=== PATIENT | female | born 1965 | race Caucasian/White ===

== ENCOUNTER 2017-12-29 00:55 | Emergency (ER) | payer BC, SELFPAY ==
[2017-12-29 00:56] VITALS: BP 145/84; PULSE 78; RESP 16; TEMP 36.4; O2SAT 100; BMI 24.0
[2017-12-29 01:00] VITALS: BP 134/84
--- NOTE | 2017-12-29 01:52 | ED.VISSUMM ---
- ER Visit Summary Date of Service: 12/29/17 Chief Complaint: Neck pain History of Present Illness: The patient is a 52 F right-sided neck pain for past several weeks. Follows with chiropractor, has been adjusted. Temporary relief. Pain worse while trying to sleep. Pain in the right side radiates up her head. There has been no falls or injuries. There is pain states her right arm down to her right wrist. There is no weakness or paresthesias. No previous similar symptoms in the past. Using Tylenol and ibuprofen, however last dose was yesterday morning. No history of gastric ulcers or kidney injury. Physical Examination: General: Alert and oriented ?3, no acute distress HEENT: Normocephalic, atraumatic. Moist mucosa membranes Neck: supple, no midline tenderness, right upper paracervical tenderness. There is tenderness along the right SCM. Negative Spurling's test bilaterally. Cardiovascular: Regular rate and rhythm, no murmurs Respiratory: Normal breath sounds, symmetric, no distress Abdomen: Soft, nontender, nondistended Extremities: Nontender, no edema, pulses intact ?4 Neuro: no focal neurological deficits. Equal strength upper extremities bilaterally. Test Results: Cervical x-ray: Degenerative change at C4-C5 and C5-C6 Emergency Department Course and Treatment: Patient history concerns for cervical radiculopathy at C6 on the right. She has no weakness. Treated with Motrin in the ED. X-ray obtained noted general findings in her area of pain. Discussed findings with patient with radiculopathy. She does have ibuprofen for which she continue. Discharged with 1 Valium along with a prescription to use to help with spasms. Discussed additional cervical strain with her anterior neck pain. She will follow-up with her PCP for reevaluation. Treatment Plan: [] Disposition: Discharge Impression: 1. Right C6 cervical radiculopathy 2. Cervical strain This note was generated with Clear[employer] dictation software. It may contain incorrect words, spelling, and punctuation that were not noted in review of the chart prior to signing Bad present towards cardioversion 5 yearsexam saw her she flipped on Cardizem IV bolus and having more more chest discomfort she ED Disposition - Plan for ED Patient: Disposition: Home or Assisted Living Chief Complaint: Other, Pain/Inj Diagnosis: Cervical radiculopathy at C6, Cervical strain Instructions: ED Sprain Strain Neck, ED Cervical Radiculopathy Prescriptions: Diazepam [Valium] 5 mg PO Q8 PRN #10 tablet PRN Reason: Muscle Spasm Referrals: Aldo Leroy MD [Primary Care Provider] - Additional Instructions: C6 right cervical radiculopathy. Continue ibuprofen 600 mg every 6 hours. Use the Valium as needed. Follow-up with your doctor for reevaluation further treatment.
[2017-12-29] MEDS: Ibuprofen 600 MG Tablet PO (02:03)
[2017-12-29] MEDS: diazePAM 5 MG Tablet PO (02:04)
[2017-12-29 03:33] VITALS: BP 135/80; PULSE 76; RESP 16; O2SAT 98
== END 2017-12-29 03:42 | disposition home or self-care (01) ==
PROVIDERS: Emergency Provider Emergency Medicine; Family Provider Family Medicine; PCP Family Medicine
DX: M54.12 Radiculopathy, cervical region (principal); S16.1XXA Strain of muscle, fascia and tendon at neck level, initial encounter; X58.XXXA Exposure to other specified factors, initial encounter; Y93.9 Activity, unspecified; Y92.9 Unspecified place or not applicable; Y99.9 Unspecified external cause status; Z72.0 Tobacco use; G40.909 Epilepsy, unspecified, not intractable, without status epilepticus
CPT/HCPCS: 72040; 99282

== ENCOUNTER → 2018-03-20 07:17 | Outpatient (CLI) | payer BC, SELFPAY ==
[2018-03-20 10:00] LABS: Hemoglobin 14.1 g/dl (12.0-15.0); Mean Corp Hgb Conc 33.6 g/gl (32-36); Mean Corpuscular Hgb 34.3 pg (27.0-32.0); Mean Corpuscular Volume 102.2 fL (81-99); Mean Platelet Vol. 10.3 fl (6.2-12.0); Platelet Count 282 K/mm3 (150-450); RBC Distribution Width SD 48.5 fl (35.1-43.9); Red Blood Count 4.11 M/mm3 (4.2-5.4); Scan Indicated on CBC? Y/N NO
[2018-03-20 10:25] LABS: Carbamazepine (Tegretol) 7.4 ug/mL (4.0-12.0)
[2018-03-20 10:27] LABS: ALB/GLOB Ratio 1.1 RATIO (0.9-2.4); AST(SGOT) 22 U/L (15-37); Alanine Aminotransfer ALT/SGPT 26 U/L (13-56); Albumin, Serum 3.7 g/dL (3.2-5.0); Alkaline Phosphatase 85 U/L (45-117); Anion Gap 8 (5-15); BUN 8 mg/dL (7-18); BUN/Creat Ratio 15.1 RATIO (10-20); Calcium,Total 8.3 mg/dL (8.5-10.1); Chloride 108 mmol/L (98-107); Cholesterol 188 mg/dL (200); Creatinine, Serum 0.53 mg/dL (0.55-1.02); EST Glomerular Filtration Rate 128 mL/min (>60); Est Glom Filt Rate - Afr Amer 155 mL/min (>60); Globulin 3.5 g/dL (2.2-4.2); Glucose 93 mg/dL (74-106); High Density Lipoprotein 62 mg/dL; Potassium 3.8 mmol/L (3.5-5.1); Protein, Total 7.2 g/dL (6.4-8.2); Sodium Level 141 mmol/L (136-145); Triglycerides 143 mg/dL; Very Low Density Lipoprotein 29 mg/dL (5-40)
== END ==
PROVIDERS: Family Provider Family Medicine; PCP Family Medicine; Referring Provider Family Medicine; Visit Provider Family Medicine
DX: E78.5 Hyperlipidemia, unspecified (principal); G40.909 Epilepsy, unspecified, not intractable, without status epilepticus
CPT/HCPCS: 36415; 80053; 80061; 80156; 85027

== ENCOUNTER 2018-03-23 16:00 | Outpatient (RCR) | payer BC, SELFPAY ==
--- NOTE | 2018-01-28 16:14 | HP.PTEVAL ---
Patient's Visit Information REYMUNDO MINOR is a 53 year old F referred to Physical Therapy by Navjot Araiza with a diagnosis of Back/Neck Pain. Date of Evaluation: 01/26/18 Physical Therapist: Emma Siu - Visit Plan Plan: PT services focusing on proper posture, increasing cervical AROM, increasing R shoulder strength, scapular stabilization, and stretching of neck musculature. - Subjective Subjective: Referred from physician for neck and bilat. shoulder pain-worse on R. Neck and shoulder pain really became a problem 3 months ago. 4 degenerative cervical discs and arthritis. Have not had back spasm since 4 days because on muscle relaxers starting 3 weeks ago. Off and on LBP. Radiographs 4 weeks ago showing degenerative discs and arthitis. Called Dr. Araiza and referred to PT. Went to massage and chiropractor last week for adjustments and soft tissue work. Current pain in neck 6/10, superior shoulder 7-8/10, best neck 6/10, shoulder 7/10, worst 9/10 for both. Pain described as nagging, when spasms having stabbing pain. Lay down at night difficult to find a comfortable position, uses pillows. Fall asleep on L side or supine. Try to prop R arm on pillow but does not help. Pain sometimes wakes up at night, depending on how severe able to fall back asleep. Heat provides relief, ice provides temporary relief. 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 Lifting weight varies; not supposed to lift over 50# I. 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 Not lifting anything at home because trying to rest. R side dominant. No problems cooking, cleaning, showering. Gets TRAYLOR occipital region, lasting most of the day, getting 3-4 times a week, take 3 Ibprofen which sometimes helps, sometimes doesn't. Frequency increased since neck pain began. No changes in vision, no dizziness. No previous injury. Take Tagertoft for seizure disorder but under control; cholesterol medicine. Pain radiates down the arms to the wrist. Hard to pick things up like low pins and does have dropsys. - Objective Gait: ambulates with posterior trunk lean. Posture: rounded shoulders, kyphosis. AROM: cervical flex., ext., side bend bilat. rotation bilat. approx 5 degrees with posterior neck pain. R shoulder flex. approx 160 deg with superior shoulder pain, abd. WFL superior shoulder pain, ext. WFL, IR/ER at 0 deg WFL, elbow WNL. Strength: R shoulder flex. abd. ext. 4/5 with superior R shoulder pain, IR/ER at 0 deg 4/5, R elbow flex. and ext. 4/5. Scapular strength fair. PROM: rotation bilat. approx 30 deg with pain along levator scapula. Palpation: Flexibility: Special tests: Spurlings (-) Relief with cervical distraction - Goals Goal 1:: Patient will be I with HEP and progressions. Goal Time Frame: 4-6 Weeks Goal 2:: Patient will maintain proper posture throughout session to demonstrate increased cervical and scapular stability. Goal Time Frame: 4-6 Weeks Goal 3:: Patient will demonstrate full cervical ROM in each direction pain free to demonstrate decrease in soft tissue restriction. Goal Time Frame: 4-6 Weeks Goal 4:: Patient will increase strength in right shoulder to 5/5 where deficits. Goal Time Frame: 4-6 Weeks - Rehabilitation Potential Physical Therapy Diagnosis: Patient presents with hypomobility. Decreased cervical and R shoulder ROM along with bilat. neck muscular restriction limiting patient from pain free moblity in work and home environment. Rehabilitation Potential: Fair - Anticipated Interventions Patient/Client Instruction: Educate patient on: Condition, Plan of Care For the Purpose of:: To increase ROM, To improve muscle performance and motor function, To increase tolerance to activity/condition/position, To increase flexibility/ROM, To improve endurance Therapeutic Exercise to Include: Strength training, Power training, Endurance training, Coordination, Body mechanics, Postural training, Flexibilty training, Passive ROM, Active ROM, Scapular Strength/Stabilization For the Purpose of:: To increase ROM, To improve muscle performance and motor function, To increase flexibility/ROM, To improve endurance TENS: Yes Cryotherapy (ice pack, ice massage): Yes Thermo therapy (hot pack): Yes Ultrasound (thermal/non thermal): Yes For the Purpose of:: To decrease pain Thank you for the opportunity to evaluate your patient. For Medicare and Medicare HMO plans, please review the plan of care and approve it. It will need to be FAXED BACK to us at [phone] for Medicare purposes. Please let me know if there are questions or concerns regarding this plan of care. Physician Signature: Date:
--- NOTE | 2018-03-05 15:53 | HP.PTREVAL_ITS ---
Navjot Araiza, It has been my pleasure to treat REYMUNDO MINOR over the last 7 visits for Back/Neck Pain. Please see the progress note below for an update on the physical therapy plan of care! Subjective: The shoulders are pretty good but the neck is still painful. She has pain when she touches it and feels like her ROM is restricted. Sleep is better but its still challenging to find the right position. Worst: 5/10 Spasms have been decreasing. Best: 3/10. Is doing the exercises. But has not found anything that helps in that area of the spasm. She feels that she is 55% better. Feels that therapy is helping and making a difference. Objective/Function: Gait: good karin, arm swing and trunk rotation Posture: rounded shoulders, kyphosis- can correct with verbal cues but does not maintain more than 2 minutes in sitting. AROM: cervical flex., ext., side bend bilat. rotation bilat- WNL but reports pain with SB to the right and forward flexion- shoulders bilaterally: WNL. Strength: R shoulder flex. abd. ext. 4/5 with superior R shoulder pain, IR/ER at 0 deg 4/5, R elbow flex. and ext. 4+/5. Scapular strength fair. Palpation: tender along levator insertion to the scapula and the upper trap on the right with trigger points. Plan Plan: Continue 2x a week for 4 weeks to progress towards postural stabilization Goals Goal 1:: Patient will be I with HEP and progressions. Goal Time Frame: 4-6 Weeks Goal Progress: Progressing Goal 2:: Patient will maintain proper posture throughout session to demonstrate increased cervical and scapular stability. Goal Time Frame: 4-6 Weeks Goal Progress: Progressing Goal 3:: Patient will demonstrate full cervical ROM in each direction pain free to demonstrate decrease in soft tissue restriction. Goal Time Frame: 4-6 Weeks Goal Progress: Progressing Goal 4:: Patient will increase strength in right shoulder to 5/5 where deficits. Goal Time Frame: 4-6 Weeks Goal Progress: Progressing Anticipated Interventions Patient/Client Instruction: Educate patient on: Condition, Plan of Care For the Purpose of:: To increase ROM, To improve muscle performance and motor function, To increase tolerance to activity/condition/position, To increase flexibility/ROM, To improve endurance Therapeutic Exercise to Include: Strength training, Power training, Endurance training, Coordination, Body mechanics, Postural training, Flexibilty training, Passive ROM, Active ROM, Scapular Strength/Stabilization For the Purpose of:: To increase ROM, To improve muscle performance and motor function, To increase flexibility/ROM, To improve endurance TENS: Yes Cryotherapy (ice pack, ice massage): Yes Thermo therapy (hot pack): Yes Ultrasound (thermal/non thermal): Yes For the Purpose of:: To decrease pain Please do not hesitate to contact me at [phone] by phone or if you have questions or concerns regarding this new plan of care! Sincerely, Emma Siu
--- NOTE | 2018-03-25 16:49 | HP.PTREVAL_ITS ---
Navjot Araiza, It has been my pleasure to treat REYMUNDO MINOR over the last 10 visits for Back/Neck Pain. Please see the progress note below for an update on the physical therapy plan of care! Subjective: The shoulder blade is better-but the pain is now radiating up into the neck. Has been rubbing the neck- which sometimes makes it feel better- has been using heat bag before she goes to work. Feels that her shoulder blade is 55% better. Describes the pain as dull and achy and sometimes sharp but its always there. Worst: 11/04 Agg: working- Friday had to lift heavy stuff at work- had some help at work. Sleep: hard to get comfortable to get to sleep- but doesn't wake her up. Side sleeper with new pillow. Objective/Function: Gait: good karin, arm swing and trunk rotation Posture: rounded shoulders, kyphosis- can correct with verbal cues but does not maintain more than 2 minutes in sitting. AROM: cervical flex., ext., side bend bilat. rotation bilat- WNL but reports pain with SB to the right and forward flexion- shoulders bilaterally: WNL. Strength: R shoulder flex. abd. ext. 4/5 with superior R shoulder pain, IR/ER at 0 deg 4/5, R elbow flex. and ext. 4+/5. Scapular strength fair. Palpation: tender along levator insertion to the scapula and the upper trap on the right with trigger points. Plan Plan: Continue 2x a week for 4 weeks- for progression to HEP Goals Goal 1:: Patient will be I with HEP and progressions. Goal Time Frame: 4-6 Weeks Goal Progress: Progressing Goal 2:: Patient will maintain proper posture throughout session to demonstrate increased cervical and scapular stability. Goal Time Frame: 4-6 Weeks Goal Progress: Progressing Goal 3:: Patient will demonstrate full cervical ROM in each direction pain free to demonstrate decrease in soft tissue restriction. Goal Time Frame: 4-6 Weeks Goal Progress: Progressing Goal 4:: Patient will increase strength in right shoulder to 5/5 where deficits. Goal Time Frame: 4-6 Weeks Goal Progress: Progressing Anticipated Interventions Patient/Client Instruction: Educate patient on: Condition, Plan of Care For the Purpose of:: To increase ROM, To improve muscle performance and motor function, To increase tolerance to activity/condition/position, To increase flexibility/ROM, To improve endurance Therapeutic Exercise to Include: Strength training, Power training, Endurance training, Coordination, Body mechanics, Postural training, Flexibilty training, Passive ROM, Active ROM, Scapular Strength/Stabilization For the Purpose of:: To increase ROM, To improve muscle performance and motor function, To increase flexibility/ROM, To improve endurance TENS: Yes Cryotherapy (ice pack, ice massage): Yes Thermo therapy (hot pack): Yes Ultrasound (thermal/non thermal): Yes For the Purpose of:: To decrease pain Please do not hesitate to contact me at [phone] by phone or if you have questions or concerns regarding this new plan of care! Sincerely, Emma Siu
--- NOTE | 2018-04-24 09:36 | HP.PT.NRP ---
HP - Discharge Summary (1) - Patient Information REYMUNDO MINOR was seen in my office for initial evaluation on 01/26/18. The following Plan of Care was established for this patient: - Anticipated Interventions Patient/Client Instruction: Educate patient on: Condition, Plan of Care For the Purpose of:: To increase ROM, To improve muscle performance and motor function, To increase tolerance to activity/condition/position, To increase flexibility/ROM, To improve endurance Therapeutic Exercise to Include: Strength training, Power training, Endurance training, Coordination, Body mechanics, Postural training, Flexibilty training, Passive ROM, Active ROM, Scapular Strength/Stabilization For the Purpose of:: To increase ROM, To improve muscle performance and motor function, To increase flexibility/ROM, To improve endurance TENS: Yes Cryotherapy (ice pack, ice massage): Yes Thermo therapy (hot pack): Yes Ultrasound (thermal/non thermal): Yes For the Purpose of:: To decrease pain This patient was last seen in our office . Pertinent comments regarding their Physical therapy will appear below: Patient has not attended therapy in 4 weeks- appropriate for d/c and return to MD for further evaluation as needed. At this point I will be discontinuing this patient from physical therapy. I would be happy to see this patient again in the future if found appropriate by the physician. Thank you! ISRAEL LouT
== END 2018-03-23 19:00 | disposition home or self-care (01) ==
LOC: PT 16:00
PROVIDERS: Family Provider Family Medicine; PCP Family Medicine; Referring Provider Family Medicine; Visit Provider Family Medicine
DX: M62.830 Muscle spasm of back (principal)
CPT/HCPCS: 97110; 97140; 97162; 97164

== ENCOUNTER → 2019-05-01 07:11 | Outpatient (CLI) | payer BC, SELFPAY ==
[2019-05-01 08:53] LABS: Absolute Lymphocyte Count 1.81 X10^3/uL (0.83-4.51); Basophil# 0.04 X10^3/uL; Basophil% 0.6 % (0-1); Eosinophil# 0.08 X10^3/uL; Eosinophils% 1.3 % (0-5); Hematocrit 41.4 % (37-47); Hemoglobin 14.1 g/dL (12.0-15.0); Lymphocyte # 1.81 X10^3/ul (4.0); Lymphocyte % 28.6 % (19-41); Mean Corp Hgb Conc 34.1 g/dL (32-36); Mean Corpuscular Hgb 34.1 pg (27.0-32.0); Mean Corpuscular Volume 100.2 fL (81-99); Mean Platelet Vol. 10.2 fl (6.2-12.0); Monocyte# 0.34 X10^3/uL; Monocyte% 5.4 % (0-10); NRBC Flagged by Analyzer 0 % (0-5); Neutrophil # 4.02 X10^3/uL (2.7-7.7); Neutrophil % 63.6 % (47-70); Platelet Count 278 K/mm3 (150-450); RBC Distribution Width CV 12.8 % (11.6-14.6); RBC Distribution Width SD 47.3 fl (35.1-43.9); Red Blood Count 4.13 M/mm3 (4.2-5.4); White Blood Count 6.3 K/mm3 (4.4-11.0)
[2019-05-01 09:45] LABS: AST(SGOT) 26 U/L (15-37); Alanine Aminotransfer ALT/SGPT 33 U/L (13-56); Albumin, Serum 3.7 g/dL (3.2-5.0); Alkaline Phosphatase 86 U/L (45-117); Anion Gap 6 (5-15); BUN 10 mg/dL (7-18); Calcium,Total 8.7 mg/dL (8.5-10.1); Chloride 105 mmol/L (98-107); Cholesterol 215 mg/dL (200); EST Glomerular Filtration Rate 136 mL/min (>60); Est Glom Filt Rate - Afr Amer 164 mL/min (>60); Globulin 3.7 g/dL (2.2-4.2); Glucose 89 mg/dL (74-106); High Density Lipoprotein 63 mg/dL; Potassium 3.9 mmol/L (3.5-5.1); Protein, Total 7.4 g/dL (6.4-8.2); Sodium Level 138 mmol/L (136-145); Thyroid Stim Hormone (TSH) 1.62 uIU/mL (0.358-3.74); Triglycerides 125 mg/dL; Very Low Density Lipoprotein 25 mg/dL (5-40)
== END ==
PROVIDERS: Family Provider Family Medicine; PCP Family Medicine; Referring Provider Family Medicine; Visit Provider Family Medicine
DX: K59.00 Constipation, unspecified (principal); G40.909 Epilepsy, unspecified, not intractable, without status epilepticus; E78.5 Hyperlipidemia, unspecified
CPT/HCPCS: 80053; 80061; 80156; 84443; 85025

== ENCOUNTER → 2019-07-27 14:03 | Outpatient (CLI) | payer BC, SELFPAY | PROVIDERS: PCP Family Medicine; Referring Provider Family Medicine; Visit Provider Family Medicine | DX: R05 Cough (principal) | CPT/HCPCS: 87633 ==

== ENCOUNTER → 2019-10-08 11:29 | Outpatient (CLI) | payer BC, SELFPAY ==
[2019-10-08 15:29] LABS: Cholesterol 191 mg/dL (200); High Density Lipoprotein 64 mg/dL; Triglycerides 138 mg/dL; Very Low Density Lipoprotein 28 mg/dL (5-40)
== END ==
PROVIDERS: PCP Family Medicine; Visit Provider Family Medicine
DX: E78.5 Hyperlipidemia, unspecified (principal)
CPT/HCPCS: 36415; 80061

== ENCOUNTER → 2020-01-14 08:46 | Outpatient (CLI) | payer BC, SELFPAY ==
[2020-01-14 10:18] LABS: Absolute Lymphocyte Count 2.05 X10^3/uL (0.83-4.51); Absolute Neutrophil Count 4.4 X10^3/uL (2.0-7.7); Basophil# 0.06 X10^3/uL; Basophil% 0.9 % (0-1); Eosinophil# 0.05 X10^3/uL; Eosinophils% 0.7 % (0-5); Hemoglobin 13.6 g/dL (12.0-15.0); Lymphocyte # 2.05 X10^3/ul (4.0); Lymphocyte % 29.4 % (19-41); Mean Corpuscular Hgb 33.7 pg (27.0-32.0); Mean Corpuscular Volume 99.3 fL (81-99); Mean Platelet Vol. 10.1 fl (6.2-12.0); Monocyte# 0.39 X10^3/uL; Monocyte% 5.6 % (0-10); NRBC Flagged by Analyzer 0 % (0-5); Neutrophil # 4.39 X10^3/uL (2.7-7.7); Neutrophil % 62.8 % (47-70); Platelet Count 283 K/mm3 (150-450); RBC Distribution Width CV 12.1 % (11.6-14.6); RBC Distribution Width SD 44.7 fl (35.1-43.9); Red Blood Count 4.03 M/mm3 (4.2-5.4)
[2020-01-14 10:52] LABS: Carbamazepine (Tegretol) 9.7 ug/mL (4.0-12.0)
[2020-01-14 10:54] LABS: ALB/GLOB Ratio 1.1 RATIO (0.9-2.4); AST(SGOT) 23 U/L (15-37); Alanine Aminotransfer ALT/SGPT 31 U/L (13-56); Albumin, Serum 3.7 g/dL (3.2-5.0); Alkaline Phosphatase 80 U/L (45-117); Anion Gap 7 (5-15); BUN 10 mg/dL (7-18); BUN/Creat Ratio 18.7 RATIO (10-20); Calcium,Total 8.9 mg/dL (8.5-10.1); Chloride 101 mmol/L (98-107); Cholesterol 190 mg/dL (200); Creatinine, Serum 0.54 mg/dL (0.55-1.02); EST Glomerular Filtration Rate 125 mL/min (>60); Est Glom Filt Rate - Afr Amer 152 mL/min (>60); Globulin 3.4 g/dL (2.2-4.2); Glucose 99 mg/dL (74-106); High Density Lipoprotein 64 mg/dL; Potassium 4.2 mmol/L (3.5-5.1); Protein, Total 7.1 g/dL (6.4-8.2); Sodium Level 135 mmol/L (136-145); Triglycerides 88 mg/dL; Very Low Density Lipoprotein 18 mg/dL (5-40)
== END ==
PROVIDERS: PCP Family Medicine; Referring Provider Family Medicine; Visit Provider Family Medicine
DX: E78.5 Hyperlipidemia, unspecified (principal); G40.909 Epilepsy, unspecified, not intractable, without status epilepticus
CPT/HCPCS: 36415; 80053; 80061; 80156; 85025

== ENCOUNTER 2020-01-30 23:00 | Emergency (ER) | payer OTHER, SELFPAY ==
[2020-01-30 23:02] VITALS: BP 147/85; PULSE 85; RESP 14; TEMP 36.2; O2SAT 99; BMI 24.2
--- NOTE | 2020-01-30 23:17 | RAD_ITS ---
STUDY: X-RAY - RIGHT WRIST REASON FOR EXAM: Female, 55 years old. Laceration to anterior part of wrist. TECHNIQUE: 3 view(s) of the wrist were obtained. COMPARISON: None. FINDINGS: Normal visualized distal radius and ulna. Normal radiocarpal articulation. Normal distal radioulnar articulation. Normal carpal bones. Normal carpal articulations. Normal carpometacarpal articulation of the thumb. Normal second through fifth carpometacarpal articulations. Normal visualized metacarpal bones. Soft tissue swelling. RAD/Wrist min 3 Views IMPRESSION: No radiodense foreign body is visible. No acute osseous injury is evident. Electronically Signed: Faisal Davis MD at 23:41 EDT Tel , Service support ,
--- NOTE | 2020-01-30 23:18 | ED.DCSUM_ITS ---
- ER Visit Summary Date of Service: 01/30/20 Chief Complaint: Right wrist injury at work History of Present Illness: The patient is a 55 F right-hand dominant history of anxiety and seizure disorder. Patient works at [employer]. 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 States since that time she had discomfort in the distal ulna and some tingling in her hand. She denies any prior injury or surgery to her right upper extremity. Her tetanus is up-to-date from March 2019. This is workers comp. Physical Examination: Middle-aged female no acute distress vital signs stable afebrile. HEENT exam unremarkable. Lungs clear to auscultation. Heart regular rhythm no murmur. Abdomen soft nontender. Extremities moves all 4. Neurovas cular intact. Specifically right shoulder, right elbow nontender nonswollen normal range of motion. Right wrist palmar side there is a superficial 3 inch laceration that does not separate. There is no significant hematoma. No signs of infection. No pus, streaking or discharge. No cellulitis. She has palpable radial and ulnar pulses. Distal to the wound. She is able to flex extend her right wrist. She has minimal discomfort at the distal ulna. No gross bony deformity. 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 Normal cap refill. And normal touch sensation. No gross bony deformities. Neurologically she is awake and alert with no focal motor deficits. Test Results: Right wrist x-ray 3 views read myself shows no acute abnormality. Also read by the radiologist. Repeat exam patient is doing well at 2353. Emergency Department Course and Treatment: Patient with a wrist injury at work 2 days ago on Friday evening. She is superficial laceration that does not separate does not need to be repaired. There is no signs of infection. X-ray obtained due to her discomfort and the mechanism of injury. Treatment Plan: Ice and elevate. Motrin and Tylenol for pain and swelling. Follow-up with corporate care as needed. Continue wound care. Watch for any signs of infection. Disposition: Discharge Impression: Right wrist minor laceration no repair and wrist contusion Worker's Comp. injury This note was generated with [employer] software. It may contain incorrect words, spelling, and punctuation that were not noted in review of the chart prior to signing ED Disposition - Plan for ED Patient: Referrals: Aldo Toney MD [Primary Care Provider] -
--- NOTE | 2020-01-30 23:53 | ED.DEP ---
ED Disposition - Plan for ED Patient: Disposition: Home or Assisted Living Instructions: ED SOFT TISSUE CONTUSION Referrals: [facility] [GROUP OF PHYSICIANS] - 1 Week if not improving Additional Instructions: Your x-ray was read as normal. Ice and elevate your right wrist to decrease pain and swelling. Tylenol Motrin for pain and swelling. Keep cleaning your laceration and watch for any signs of infection. Follow-up with corporate care as needed.
[2020-01-31 00:17] VITALS: BP 140/60; PULSE 82; RESP 18; O2SAT 95
== END 2020-01-31 00:10 | disposition home or self-care (01) ==
PROVIDERS: Emergency Provider Emergency Medicine; PCP Family Medicine
DX: S61.511A Laceration without foreign body of right wrist, initial encounter (principal); W01.0XXA Fall on same level from slipping, tripping and stumbling without subsequent striking against object, initial encounter; Y93.9 Activity, unspecified; Y92.89 Other specified places as the place of occurrence of the external cause; Y99.0 Civilian activity done for income or pay; F41.9 Anxiety disorder, unspecified; G40.909 Epilepsy, unspecified, not intractable, without status epilepticus
CPT/HCPCS: 73110; 99282

== ENCOUNTER → 2020-03-10 14:05 | Outpatient (CLI) | payer BC, SELFPAY | PROVIDERS: PCP Family Medicine; Referring Provider Family Medicine; Visit Provider Family Medicine | DX: Z20.828 Contact with and (suspected) exposure to other viral communicable diseases (principal) | CPT/HCPCS: 87635; U0003 ==

== ENCOUNTER 2020-03-14 04:28 | Emergency (ER) | payer BC, SELFPAY ==
[2020-03-14 04:29] VITALS: BP 138/88; PULSE 84; RESP 18; TEMP 36.3; O2SAT 96; BMI 24.5
--- NOTE | 2020-03-14 04:44 | RAD_ITS ---
HISTORY: Cough. Fell on 11:15. Left lateral ribs. Exam is a PA chest and 4 views of the left ribs. Comparison study is a chest x-ray from February 02, 2015. Findings: Tiny bilateral pleural effusions, right greater than left are new. Some basilar fibrotic lung disease is minimal. There may be some tiny bilateral pleural effusions that are new. No rib fractures are perceived. Levoscoliosis may be positional. Left humeral head well sits within the glenoid fossa. Left acromioclavicular joint is normal. No pneumothorax. No pulmonary contusion. Cholecystectomy clips. RAD/Ribs Uni Min 3V w/PA Chest IMPRESSION: Possible new tiny bilateral pleural effusions. No left rib fracture. at 0511 Reported and signed by: Magno Farnsworth MD Electronically Signed: Magno Farnsworth MD at 5:10 EST Tel , Service support ,
--- NOTE | 2020-03-14 04:47 | ED.VIS.GEN ---
History of Present Illness Chief Complaint: Chest Other Narrative: This patient is a 55-year-old female who presents with left-sided chest pain. She fell on Friday, 2 days ago. She tripped and fell onto the floor hitting the left side of her chest. Additionally she has been ill for about 1 week with a cough and URI-like illness. She complains of sinus congestion drainage and ears feeling stuffy and also painful. She did have a Covid test which was negative. She woke this morning and complains of intermittent cramping severe left-sided chest wall pain. She states she is short of breath with the episodes or afterwards. No exacerbating or relieving factors. She has not tried any medications. Past Medical History - Allergies and Home Meds Allergies/Adverse Reactions: Allergies amoxicillin [From Augmentin] Adverse Reaction (Verified 03/14/20 04:32) Nausea clavulanic acid [From Augmentin] Adverse Reaction (Verified 03/14/20 04:32) Nausea Primary Care Physician: Aldo Toney MD [Primary Care Provider] - Past Medical History: - - Anxiety, hyperlipidemia Surgical History: - - Cholecystectomy, hysterectomy Smoking Status: Current some day smoker - Family History Maternal Family History: Reports: No pertinent history Review of Systems All systems negative except as indicated General: Denies: Fever ENT: Reports: Bilateral ear pain, Rhinorrhea, - - Sinus congestion Cardiovascular: Reports: Chest pain Respiratory: Reports: Dyspnea, Cough Gastrointestinal: Denies: Vomiting, Diarrhea Musculoskeletal: Denies: Myalgias, Arthralgias Skin: Denies: Rash Neurological: Reports: Headache Hematologic: Denies: Easy bruising Allergy: Denies: Uticaria Physical Exam Vital Signs/Narrative: Vital Signs Temp Pulse Resp BP Pulse Ox 03/14/20 04:29 97.3 F L 84 18 138/88 H 96 Inital Vital Signs reviewed: Yes General: Well nourished Head: Normocephalic Eyes: EOMI ENT: Moist mucous membranes Neck: Supple Cardiovascular: Regular rate, Regular rhythm Respiratory: No distress, CTA bilaterally, - - Equal breath sounds bilaterally, good air exchange, no rales or wheezing, patient does have left-sided chest wall tenderness no crepitus Abdomen: Soft Skin: Normal color Neurological: Alert Psychological: - - Patient appears anxious Diagnostic/Tx/Re-eval Impressions Ribs w/Chest X-Ray 03/14/20 04:44 IMPRESSION: Possible new tiny bilateral pleural effusions. No left rib fracture. at 0511 Reported and signed by: Magno Farnsworth MD Electronically Signed: Magno Farnsworth MD at 5:10 EST Tel , Service support , 03/14/20 04:44 Xray Ribs [Ribs Uni Min 3V w/PA Chest] [RAD] Stat - Medical Decision Making Rib series shows no focal infiltrate no pneumothorax and no rib fracture. Patient was given [place] here for pain. She was advised on supportive care. She understands to return for new or worsening symptoms. Patient was discharged. ED Disposition - Plan for ED Patient: Disposition: Home or Assisted Living Diagnosis: Chest wall pain Instructions: ED CHEST CONTUSION Referrals: Aldo Toney MD [Primary Care Provider] -
[2020-03-14] MEDS: HYDROcodone Bitartrate/Apap 5/325 Tablet PO (04:48)
[2020-03-14 05:25] VITALS: RESP 16
== END 2020-03-14 05:31 | disposition home or self-care (01) ==
PROVIDERS: Emergency Provider Emergency Medicine; PCP Family Medicine
DX: R07.89 Other chest pain (principal); W01.0XXA Fall on same level from slipping, tripping and stumbling without subsequent striking against object, initial encounter; E78.5 Hyperlipidemia, unspecified; Z88.0 Allergy status to penicillin; Z88.1 Allergy status to other antibiotic agents; Z90.710 Acquired absence of both cervix and uterus; R06.02 Shortness of breath; R05 Cough
CPT/HCPCS: 71101; 99282

== ENCOUNTER → 2020-04-06 13:02 | Outpatient (CLI) | payer BC, SELFPAY ==
[2020-03-14 04:29] VITALS: BMI 24.5
--- NOTE | 2020-04-06 13:04 | CT_ITS ---
STUDY: CT CHEST WITH CONTRAST REASON FOR EXAM: Female, 55 years old. NEW FINDING ON CXR--LUNG FIBROSIS -- S/P FALL ONTO LEFT SIDE X3 WKS AGO RADIATION DOSAGE (If Supplied By Facility): CTDIvol = ( 9.90 ) mGy, DLP = ( 213.30 ) mGycm TECHNIQUE: Transaxial imaging was performed following intravenous administration of IV 100mL Isovue-300. Multiplanar coronal and sagittal images were reformatted. Individualized dose optimization techniques were used for this CT. COMPARISON: None. FINDINGS: Mild degree of emphysematous changes more prominent in the upper lobes. Patchy area of groundglass appearance in the anterior aspect of the right middle lobe as seen on axial image #46. Minimal focal area of the groundglass appearance is also seen in the anterior medial aspect of the right middle lobe inferiorly. Increased linear densities at the lung bases slightly more prominent on the right side suggestive of either linear atelectasis and/or scar. There is no demonstrated pleural abnormality. Normal heart and pericardium. Normal mediastinum. Normal hilar regions. Normal enhanced pulmonary arteries. Normal aorta arch and descending thoracic aorta. There are multi-level degenerative changes of the thoracic spine. There is no demonstrated abnormality of the visualized upper abdomen. CT/Chest WITH Contrast IMPRESSION: Mild increased linear markings at the lung bases slightly more prominent on the right side as described suggestive of linear atelectasis and/or scarring. Focal localized areas of groundglass appearance in the anterior aspect of the right middle lobe as well as in the anterior aspect of the right middle lobe inferiorly. Electronically Signed: Bharat Peace, at 14:11 EST , Service support ,
== END ==
PROVIDERS: PCP Family Medicine; Referring Provider Family Medicine; Visit Provider Family Medicine
DX: J84.10 Pulmonary fibrosis, unspecified (principal)
CPT/HCPCS: 71260; Q9967

== ENCOUNTER → 2020-04-18 07:58 | Outpatient (CLI) | payer BC, SELFPAY ==
[2020-04-12 09:31] VITALS: BMI 24.5
--- NOTE | 2020-04-18 16:17 | PFTCOMP_ITS ---
COMPLETE PULMONARY FUNCTION TEST INTERPRETATION Brief HPI: Patient is a 55 year old female, currently under the care of myself, who presents to [facility] for complete pulmonary function tests secondary to diagnosis of tobacco abuse. Respiratory therapist reports good effort and reproducible results. Interpretation: Forced expiration spirometry shows no large airways obstructive ventilatory defect with an FEV1 of 99% predicted. There is no significant bronchodilator response by strict ATS criteria. Spirograms are of good quality and plateau normally. The respiratory flow volume loop shows a normal pattern. Lung volumes by body plethysmography show a normal total lung capacity at 4.46 L, 99% predicted. All other lung volumes are within normal limits. Diffusion capacity by carbon monoxide is normal at 85% predicted. The airway resistance is normal. No previous pulmonary function tests were available for review. Impression: Normal pulmonary function testing. Patient does have some stigmata of small airways disease and may benefit from a bronchodilator trial.
== END ==
PROVIDERS: PCP Family Medicine; Referring Provider Internal Medicine Critical Care Medicine; Visit Provider Internal Medicine Critical Care Medicine
DX: R93.89 Abnormal findings on diagnostic imaging of other specified body structures (principal); Z72.0 Tobacco use
CPT/HCPCS: 94060; 94726; 94729

== ENCOUNTER → 2020-11-13 08:59 | Outpatient (CLI) | payer BC, SELFPAY ==
[2020-08-15 10:47] VITALS: BMI 26.4
[2020-11-13 10:14] LABS: Hematocrit 38.4 % (37-47); Hemoglobin 13.2 g/dL (12.0-15.0); Mean Corp Hgb Conc 34.4 g/dL (32-36); Mean Corpuscular Hgb 33.5 pg (27.0-32.0); Mean Corpuscular Volume 97.5 fL (81-99); Mean Platelet Vol. 9.3 fl (6.2-12.0); Platelet Count 309 K/mm3 (150-450); RBC Distribution Width CV 12.2 % (11.6-14.6); RBC Distribution Width SD 44.1 fl (35.1-43.9); Red Blood Count 3.94 M/mm3 (4.2-5.4)
[2020-11-13 10:46] LABS: Carbamazepine (Tegretol) 11.6 ug/mL (4.0-12.0)
[2020-11-13 10:47] LABS: ALB/GLOB Ratio 1.1 RATIO (0.9-2.4); AST(SGOT) 26 U/L (15-37); Alanine Aminotransfer ALT/SGPT 47 U/L (13-56); Albumin, Serum 3.8 g/dL (3.2-5.0); Alkaline Phosphatase 96 U/L (45-117); Anion Gap 7 (5-15); BUN 12 mg/dL (7-18); BUN/Creat Ratio 20.6 RATIO (10-20); Calcium,Total 8.8 mg/dL (8.5-10.1); Chloride 98 mmol/L (98-107); Cholesterol 242 mg/dL (200); Creatinine, Serum 0.58 mg/dL (0.55-1.02); EST Glomerular Filtration Rate 114 mL/min (>60); Est Glom Filt Rate - Afr Amer 137 mL/min (>60); Globulin 3.6 g/dL (2.2-4.2); Glucose 96 mg/dL (74-106); High Density Lipoprotein 65 mg/dL; Potassium 4.2 mmol/L (3.5-5.1); Protein, Total 7.4 g/dL (6.4-8.2); Sodium Level 134 mmol/L (136-145); Triglycerides 270 mg/dL; Very Low Density Lipoprotein 54 mg/dL (5-40)
== END ==
PROVIDERS: Nurse Practitioner Family; PCP Family Medicine; Visit Provider Family Medicine
DX: Z00.00 Encounter for general adult medical examination without abnormal findings (principal)
CPT/HCPCS: 80053; 80061; 80156; 85027

== ENCOUNTER → 2021-01-03 07:09 | Outpatient (CLI) | payer BC, SELFPAY ==
--- NOTE | 2021-01-03 07:24 | MRI_ITS ---
STUDY: MRI LEFT FOREFOOT WITHOUT CONTRAST REASON FOR EXAM: Pain across left metatarsals, evaluate for stress fracture. TECHNIQUE: Standardized fat and water weighted pulse sequences were obtained in all 3 orthogonal planes. COMPARISON: None. FINDINGS: Normal metatarsophalangeal joint of the hallux. Normal tibial and fibular sesamoids, and fibular sesamoid-first metatarsal articulation. There is mild arthrosis of the tibial sesamoid-first metatarsal articulation with mild chondral thinning (T1 sagittal image 22). Normal interphalangeal joint of the hallux. Normal proximal and distal phalanges of the great toe. Normal medial and lateral heads of the flexor hallucis brevis tendons. Normal flexor and extensor hallucis longus tendons. Normal second through fifth metatarsophalangeal (MTP) joints. Normal interphalangeal joints of the second through fifth toes. Normal proximal, middle and distal phalanges of the second through fifth toes. There is a small intermetatarsal neuroma of the second webspace (T1 short axis series 3 image 21) measuring approximately 0.28 cm in transverse dimension. Normal flexor and extensor tendons of the second through fifth toes. Normal metatarsals without stress fracture or bone edema. There is mild arthrosis of the second and third tarsometatarsal articulations with mild chondral thinning and subchondral cystic change (inversion recovery sagittal images 13-16). There is arthrosis of the navicular-cuneiform articulations with chondral thinning and subchondral cystic change (inversion recovery sagittal images 19, 20). Normal intrinsic muscles of the forefoot. There is mild adventitial bursitis in the subcutis adipose space at the plantar lateral aspect of the fifth metatarsophalangeal joint (inversion recovery short axis series 5 images 15, 16). There is a small pressure lesion in the subcutis adipose space plantar to the first metatarsophalangeal joint (T1 short axis series 3 images 17, 18). There is a pressure lesion in the subcutis adipose space plantar to the interphalangeal joint of the first digit (T1 sagittal images 23-25). There is a small ganglion cyst dorsal to the navicular-medial cuneiform articulation (inversion recovery sagittal image 22) measuring 0.6 cm in AP dimension. MRI/Lower Ext/No Jt/w/o IMPRESSION: Small intermetatarsal neuroma of the second webspace. Mild arthrosis of the tibial sesamoid-first metatarsal articulation. Mild arthrosis of the second and third tarsometatarsal articulations. Arthrosis of the navicular-cuneiform articulations. Mild adventitial bursitis at the plantar lateral aspect of the fifth metatarsophalangeal joint. Pressure lesions in the subcutis adipose space plantar to the first metatarsophalangeal joint and interphalangeal joint of the first digit. Small ganglion cyst dorsal to the navicular-medial cuneiform articulation. No demonstrated stress fracture. Electronically Signed: Pietro Dos Santos MD at 11:48 EDT Tel , Service support ,
== END ==
PROVIDERS: PCP Family Medicine; Referring Provider Podiatrist; Visit Provider Podiatrist
DX: M84.375D Stress fracture, left foot, subsequent encounter for fracture with routine healing (principal)
CPT/HCPCS: 73718

== ENCOUNTER 2021-05-03 12:27 | Outpatient (CLI) | payer BC, SELFPAY ==
[2021-05-03 15:18] LABS: Absolute Lymphocyte Count 2.43 X10^3/uL (0.83-4.51); Absolute Neutrophil Count 3.7 X10^3/uL (2.0-7.7); Basophil# 0.03 X10^3/uL; Basophil% 0.5 % (0-1); Eosinophil# 0.04 X10^3/uL; Eosinophils% 0.6 % (0-5); Hematocrit 38.6 % (37-47); Hemoglobin 13.1 g/dL (12.0-15.0); Lymphocyte # 2.43 X10^3/ul (0.83-4.51); Lymphocyte % 36.9 % (19-41); Mean Corp Hgb Conc 33.9 g/dL (32-36); Mean Corpuscular Hgb 32.6 pg (27.0-32.0); Mean Platelet Vol. 9.9 fl (6.2-12.0); Monocyte# 0.34 X10^3/uL; Monocyte% 5.2 % (0-10); NRBC Flagged by Analyzer 0 % (0-5); Neutrophil # 3.72 X10^3/uL (2.7-7.7); Neutrophil % 56.5 % (47-70); Platelet Count 288 K/mm3 (150-450); RBC Distribution Width CV 12.1 % (11.6-14.6); RBC Distribution Width SD 42.8 fl (35.1-43.9); Red Blood Count 4.02 M/mm3 (4.2-5.4); White Blood Count 6.6 K/mm3 (4.4-11.0)
[2021-05-03 15:51] LABS: ALB/GLOB Ratio 1.1 RATIO (0.9-2.4); AST(SGOT) 24 U/L (15-37); Alanine Aminotransfer ALT/SGPT 38 U/L (13-56); Albumin, Serum 3.8 g/dL (3.2-5.0); Alkaline Phosphatase 97 U/L (45-117); Anion Gap 9 (5-15); BUN 10 mg/dL (7-18); BUN/Creat Ratio 20.6 RATIO (10-20); Calcium,Total 8.9 mg/dL (8.5-10.1); Chloride 100 mmol/L (98-107); Cholesterol 218 mg/dL (200); Creatinine, Serum 0.49 mg/dL (0.55-1.02); EST Glomerular Filtration Rate 140 mL/min (>60); Est Glom Filt Rate - Afr Amer 169 mL/min (>60); Globulin 3.6 g/dL (2.2-4.2); Glucose 88 mg/dL (74-106); High Density Lipoprotein 69 mg/dL; Protein, Total 7.4 g/dL (6.4-8.2); Sodium Level 134 mmol/L (136-145); Thyroid Stim Hormone (TSH) 1.43 uIU/mL (0.358-3.74); Triglycerides 195 mg/dL; Very Low Density Lipoprotein 39 mg/dL (5-40)
[2021-05-03 15:52] LABS: Carbamazepine (Tegretol) 8.7 ug/mL (4.0-12.0)
== END 2021-05-03 23:59 | disposition short-term general hospital (02) ==
LOC: MFPLAB 12:29
PROVIDERS: PCP Family Medicine; Referring Provider Family Medicine; Visit Provider Family Medicine
DX: E78.5 Hyperlipidemia, unspecified (principal); G40.909 Epilepsy, unspecified, not intractable, without status epilepticus; F41.1 Generalized anxiety disorder
CPT/HCPCS: 36415; 80053; 80061; 80156; 84443; 85025

== ENCOUNTER → 2021-10-02 | Outpatient (CLI) | payer BC, SELFPAY ==
[2021-10-02 17:48] LABS: Absolute Lymphocyte Count 2.33 X10^3/uL (0.83-4.51); Absolute Neutrophil Count 4.7 X10^3/uL (2.0-7.7); Basophil# 0.03 X10^3/uL; Basophil% 0.4 % (0-1); Eosinophil# 0.02 X10^3/uL; Eosinophils% 0.3 % (0-5); Hematocrit 39.5 % (37-47); Hemoglobin 13.4 g/dL (12.0-15.0); Lymphocyte # 2.33 X10^3/ul (0.83-4.51); Lymphocyte % 31.2 % (19-41); Mean Corp Hgb Conc 33.9 g/dL (32-36); Mean Corpuscular Hgb 33.2 pg (27.0-32.0); Mean Corpuscular Volume 97.8 fL (81-99); Mean Platelet Vol. 9.8 fl (6.2-12.0); Monocyte# 0.39 X10^3/uL; Monocyte% 5.2 % (0-10); NRBC Flagged by Analyzer 0 % (0-5); Neutrophil # 4.66 X10^3/uL (2.7-7.7); Neutrophil % 62.5 % (47-70); Platelet Count 301 K/mm3 (150-450); RBC Distribution Width CV 11.9 % (11.6-14.6); RBC Distribution Width SD 43.2 fl (35.1-43.9); Red Blood Count 4.04 M/mm3 (4.2-5.4); White Blood Count 7.5 K/mm3 (4.4-11.0)
[2021-10-02 18:05] LABS: ALB/GLOB Ratio 1.1 RATIO (0.9-2.4); AST(SGOT) 32 U/L (15-37); Alanine Aminotransfer ALT/SGPT 40 U/L (13-56); Alkaline Phosphatase 92 U/L (45-117); Anion Gap 8 (5-15); BUN 10 mg/dL (7-18); BUN/Creat Ratio 15.1 RATIO (10-20); Calcium,Total 9.2 mg/dL (8.5-10.1); Chloride 95 mmol/L (98-107); Creatinine, Serum 0.66 mg/dL (0.55-1.02); EST Glomerular Filtration Rate 97 mL/min (>60); Est Glom Filt Rate - Afr Amer 118 mL/min (>60); Globulin 3.7 g/dL (2.2-4.2); Glucose 93 mg/dL (74-106); Protein, Total 7.7 g/dL (6.4-8.2); Sodium Level 130 mmol/L (136-145)
== END | disposition home or self-care (01) ==
LOC: MFPLAB 14:56
PROVIDERS: PCP Family Medicine; Referring Provider Family Medicine; Visit Provider Family Medicine
DX: Z01.818 Encounter for other preprocedural examination (principal)
CPT/HCPCS: 36415; 80053; 85025

== ENCOUNTER → 2022-02-08 | Outpatient (CLI) | payer OTHER, SELFPAY ==
[2022-02-08 15:46] LABS: Absolute Lymphocyte Count 1.14 X10^3/uL (0.83-4.51); Absolute Neutrophil Count 2.7 X10^3/uL (2.0-7.7); Basophil# 0.02 X10^3/uL; Basophil% 0.5 % (0-1); Eosinophil# 0.02 X10^3/uL; Eosinophils% 0.5 % (0-5); Hematocrit 39.3 % (37-47); Hemoglobin 13.4 g/dL (12.0-15.0); Lymphocyte # 1.14 X10^3/ul (0.83-4.51); Lymphocyte % 26.6 % (19-41); Mean Corp Hgb Conc 34.1 g/dL (32-36); Mean Corpuscular Hgb 33.8 pg (27.0-32.0); Mean Platelet Vol. 9.3 fl (6.2-12.0); Monocyte# 0.36 X10^3/uL; Monocyte% 8.4 % (0-10); NRBC Flagged by Analyzer 0 % (0-5); Neutrophil # 2.72 X10^3/uL (2.7-7.7); Neutrophil % 63.5 % (47-70); Platelet Count 263 K/mm3 (150-450); RBC Distribution Width CV 12.8 % (11.6-14.6); RBC Distribution Width SD 46.4 fl (35.1-43.9); Red Blood Count 3.97 M/mm3 (4.2-5.4); White Blood Count 4.3 K/mm3 (4.4-11.0)
[2022-02-08 16:25] LABS: Anion Gap 8 (5-15); BUN 8 mg/dL (7-18); BUN/Creat Ratio 13.6 RATIO (10-20); Calcium,Total 8.8 mg/dL (8.5-10.1); Chloride 99 mmol/L (98-107); Creatinine, Serum 0.59 mg/dL (0.55-1.02); EST Glomerular Filtration Rate 112 mL/min (>60); Est Glom Filt Rate - Afr Amer 135 mL/min (>60); Glucose 137 mg/dL (74-106); Potassium 3.6 mmol/L (3.5-5.1); Sodium Level 134 mmol/L (136-145)
== END | disposition home or self-care (01) ==
LOC: MFPLAB 11:47
PROVIDERS: PCP Family Medicine; Referring Provider Family Medicine; Visit Provider Family Medicine
DX: R55 Syncope and collapse (principal)
CPT/HCPCS: 36415; 80048; 85025

== ENCOUNTER → 2022-04-23 | Outpatient (CLI) | payer OTHER, SELFPAY ==
[2022-04-23 17:50] LABS: Erythrocyte Sedimentation Rate 31 mm/hr (0-30)
[2022-04-23 18:08] LABS: CRP 8.67 mg/L (0.0-3.0); Rheumatoid Factor < 10.0 IU/mL (<15); Thyroid Stim Hormone (TSH) 1.58 uIU/mL (0.358-3.74)
[2022-04-23 18:49] LABS: Vitamin B12 564 pg/mL (211-911)
[2022-04-25 21:02] LABS: ANTINUCLEAR ANTIBODIES DIRECT Negative (Negative)
[2022-05-03 17:25] LABS: CCP IgG Antibodies 7 units (0-19); HLA B27 Negative (.)
== END | disposition home or self-care (01) ==
LOC: MFPLAB 16:04
PROVIDERS: PCP Family Medicine; Visit Provider Family Medicine
DX: M25.50 Pain in unspecified joint (principal)
CPT/HCPCS: 36415; 81374; 82607; 84443; 85652; 86038; 86140; 86200; 86431

== ENCOUNTER → 2022-05-23 | Outpatient (CLI) | payer OTHER, SELFPAY ==
--- NOTE | 2022-05-23 13:01 | VDUE_ITS ---
Reason For Study: Pain Right Proximal Left Proximal Right subclavian vein is spontaneous, widely Left jugular vein is spontaneous, widely patent, phasic, with no intraluminal patent, continuous, with no intraluminal echogenicity noted. echogenicity noted. Left subclavian vein is spontaneous, widely patent, phasic, with no intraluminal echogenicity noted. . Left Arm Left axillary vein is spontaneous, patent, phasic, competent, compressible and demonstrates augmentation. Left brachial vein is compressible. Left cephalic vein is compressible. Left basilic vein is compressible. Left Lower Arm Left radial vein is compressible. Left ulnar vein is compressible. VL/Venous Duplex US, Unilateral Interpretation Summary No evidence for acute deep venous thrombosis[left] upper extremity with patent and compressible cephalic and basilic veins. Normal flow patterns right subclavian vein Ordering Physician: Joyce Knox Referring Physician: Carmen Snow Performed By: Wilbur Velazquez RVT ???
--- NOTE | 2022-05-23 13:45 | BI_ITS ---
MAMMOGRAPHY - UNILATERAL DIAGNOSTIC: LEFT BREAST REASON FOR EXAM: Female, 57 years old. 3 month history of occasional left breast pain. PERTINENT HISTORY: Mother with breast cancer. TECHNIQUE: Digital unilateral breast serena (3D mammographic acquisition) in the CC and MLO projections. 2-D mediolateral oblique (MLO) and craniocaudad (CC) views of both breasts were obtained. CAD: Full Field Digital Mammography with Computer Added Detection was performed. COMPARISON: Comparison is made with prior abdomen examination dated 11/15/2021. FINDINGS: Breast Composition: There are scattered areas of fibroglandular density. There are no dominant masses or suspicious calcifications. No other significant abnormalities are identified. There has been no significant change since the prior study. BI/DIAG MAMM W/CAD, UNILAT IMPRESSION: Stable unilateral diagnostic mammogram. With the patient''s history of occasional left breast pain, ultrasound of the retroareolar region of the left breast is recommended. ASSESSMENT CATEGORY: BIRADS Category 0: Incomplete. Need additional imaging evaluation. A letter regarding these results will be sent to the patient by the facility within 30 days. Approximately 10% of breast cancers are not detected by mammography. A normal mammogram should not delay biopsy of a clinically suspicious abnormality. Electronically Signed: Bharat Peace MD at 14:55 EST ,
--- NOTE | 2022-05-23 13:45 | US_ITS ---
STUDY: ULTRASOUND BREAST - LEFT REASON FOR EXAM: Female, 57 years old. Pain in the left breast. TECHNIQUE: Axial and longitudinal images of the LEFT breast were performed with a high resolution ultrasound transducer. # OF IMAGES: 23 COMPARISON: Comparison is made with prior mammogram done earlier today. FINDINGS: LEFT Breast: The retroareolar region of the left breast was examined with ultrasound. There is evidence of dilated ducts. Possible echogenic foci within the ducts. Ductogram is recommended. US/Breast Limited Unilateral IMPRESSION: Retroareolar ductal dilatation with findings suggestive of hypoechoic material within it. Correlation with a ductogram is recommended. ASSESSMENT CATEGORY: BIRADS Category 0: Incomplete. Need additional imaging evaluation. A letter regarding these results will be sent to the patient by the facility within 30 days. Electronically Signed: Bharat Peace MD at 15:36 EST ,
== END | disposition home or self-care (01) ==
PROVIDERS: PCP Family Medicine; Visit Provider Nurse Practitioner Family
DX: N64.4 Mastodynia (principal); R92.2 Inconclusive mammogram; M79.603 Pain in arm, unspecified
CPT/HCPCS: 76642; 77061; 77065; 93971; G0279

== ENCOUNTER → 2022-07-09 | Outpatient (CLI) | payer OTHER, SELFPAY ==
[2022-07-09 12:02] LABS: Absolute Lymphocyte Count 1.65 X10^3/uL (0.83-4.51); Absolute Neutrophil Count 3.5 X10^3/uL (2.0-7.7); Basophil# 0.04 X10^3/uL; Basophil% 0.7 % (0-1); Eosinophil# 0.03 X10^3/uL; Eosinophils% 0.5 % (0-5); Hematocrit 40.2 % (37-47); Hemoglobin 13.3 g/dL (12.0-15.0); Lymphocyte # 1.65 X10^3/ul (0.83-4.51); Lymphocyte % 29.5 % (19-41); Mean Corp Hgb Conc 33.1 g/dL (32-36); Mean Corpuscular Hgb 32.2 pg (27.0-32.0); Mean Corpuscular Volume 97.3 fL (81-99); Mean Platelet Vol. 9.1 fl (6.2-12.0); Monocyte# 0.33 X10^3/uL; Monocyte% 5.9 % (0-10); NRBC Flagged by Analyzer 0 % (0-5); Neutrophil # 3.53 X10^3/uL (2.7-7.7); Neutrophil % 63.2 % (47-70); Platelet Count 298 K/mm3 (150-450); RBC Distribution Width CV 12.3 % (11.6-14.6); RBC Distribution Width SD 44.1 fl (35.1-43.9); Red Blood Count 4.13 M/mm3 (4.2-5.4); White Blood Count 5.6 K/mm3 (4.4-11.0)
[2022-07-09 12:36] LABS: AST(SGOT) 22 U/L (15-37); Alanine Aminotransfer ALT/SGPT 32 U/L (13-56); Albumin, Serum 3.7 g/dL (3.2-5.0); Alkaline Phosphatase 104 U/L (45-117); Anion Gap 7 (5-15); BUN 11 mg/dL (7-18); BUN/Creat Ratio 21.2 RATIO (10-20); Calcium,Total 9.1 mg/dL (8.5-10.1); Chloride 102 mmol/L (98-107); Creatinine, Serum 0.52 mg/dL (0.55-1.02); EST Glomerular Filtration Rate 129 mL/min (>60); Est Glom Filt Rate - Afr Amer 156 mL/min (>60); Globulin 3.6 g/dL (2.2-4.2); Glucose 117 mg/dL (74-106); Potassium 4.1 mmol/L (3.5-5.1); Protein, Total 7.3 g/dL (6.4-8.2); Rheumatoid Factor < 10.0 IU/mL (<15); Sodium Level 136 mmol/L (136-145)
[2022-07-09 13:03] LABS: Hepatitis B Surface Antibody Non-Reactive; Hepatitis B Surface Antigen Non-Reactive (Nonreactive); Hepatitis C Antibody Non-Reactive (Nonreactive)
[2022-07-10 16:06] LABS: CCP IgG Antibodies 3 units (0-19)
== END | disposition home or self-care (01) ==
LOC: MFPLAB 09:59
PROVIDERS: PCP Family Medicine; Visit Provider Internal Medicine Rheumatology
DX: M06.4 Inflammatory polyarthropathy (principal); M79.7 Fibromyalgia; E78.5 Hyperlipidemia, unspecified
CPT/HCPCS: 36415; 80053; 85025; 86200; 86431; 86706; 86803; 87340

== ENCOUNTER → 2022-08-28 | Outpatient (CLI) | payer OTHER, SELFPAY ==
[2022-08-28 18:00] LABS: Absolute Lymphocyte Count 2.76 X10^3/uL (0.83-4.51); Absolute Neutrophil Count 6.6 X10^3/uL (2.0-7.7); Basophil# 0.04 X10^3/uL; Basophil% 0.4 % (0-1); Eosinophil# 0.05 X10^3/uL; Eosinophils% 0.5 % (0-5); Hematocrit 40.9 % (37-47); Hemoglobin 13.7 g/dL (12.0-15.0); Lymphocyte # 2.76 X10^3/ul (0.83-4.51); Mean Corp Hgb Conc 33.5 g/dL (32-36); Mean Corpuscular Hgb 32.7 pg (27.0-32.0); Mean Corpuscular Volume 97.6 fL (81-99); Mean Platelet Vol. 9.5 fl (6.2-12.0); Monocyte# 0.36 X10^3/uL; Monocyte% 3.7 % (0-10); NRBC Flagged by Analyzer 0 % (0-5); Neutrophil % 66.9 % (47-70); Platelet Count 326 K/mm3 (150-450); RBC Distribution Width CV 12.8 % (11.6-14.6); RBC Distribution Width SD 45.6 fl (35.1-43.9); Red Blood Count 4.19 M/mm3 (4.2-5.4); White Blood Count 9.9 K/mm3 (4.4-11.0)
[2022-08-28 18:45] LABS: ALB/GLOB Ratio 1.1 RATIO (0.9-2.4); AST(SGOT) 26 U/L (15-37); Alanine Aminotransfer ALT/SGPT 34 U/L (13-56); Albumin, Serum 3.7 g/dL (3.2-5.0); Alkaline Phosphatase 104 U/L (45-117); Anion Gap 9 (5-15); BUN 10 mg/dL (7-18); BUN/Creat Ratio 15.8 RATIO (10-20); Calcium,Total 9.4 mg/dL (8.5-10.1); Chloride 100 mmol/L (98-107); Creatinine, Serum 0.63 mg/dL (0.55-1.02); EST Glomerular Filtration Rate 103 mL/min (>60); Est Glom Filt Rate - Afr Amer 124 mL/min (>60); Globulin 3.5 g/dL (2.2-4.2); Glucose 126 mg/dL (74-106); Potassium 3.2 mmol/L (3.5-5.1); Protein, Total 7.2 g/dL (6.4-8.2); Sodium Level 136 mmol/L (136-145)
== END | disposition home or self-care (01) ==
LOC: MFPLAB 16:37
PROVIDERS: PCP Family Medicine; Visit Provider Internal Medicine Rheumatology
DX: M06.4 Inflammatory polyarthropathy (principal); M79.7 Fibromyalgia
CPT/HCPCS: 36415; 80053; 85025

== ENCOUNTER → 2022-09-09 | Outpatient (CLI) | payer OTHER, SELFPAY ==
[2022-09-09 12:55] LABS: Hemoglobin A1c 5.8 % (3.8-5.6)
[2022-09-09 13:03] LABS: ALB/GLOB Ratio 0.9 RATIO (0.9-2.4); AST(SGOT) 31 U/L (15-37); Alanine Aminotransfer ALT/SGPT 47 U/L (13-56); Albumin, Serum 3.5 g/dL (3.2-5.0); Alkaline Phosphatase 96 U/L (45-117); Anion Gap 8 (5-15); BUN 11 mg/dL (7-18); BUN/Creat Ratio 19.2 RATIO (10-20); Calcium,Total 8.8 mg/dL (8.5-10.1); Chloride 101 mmol/L (98-107); Creatinine, Serum 0.57 mg/dL (0.55-1.02); EST Glomerular Filtration Rate 115 mL/min (>60); Est Glom Filt Rate - Afr Amer 139 mL/min (>60); Globulin 3.8 g/dL (2.2-4.2); Glucose 92 mg/dL (74-106); Potassium 3.6 mmol/L (3.5-5.1); Protein, Total 7.3 g/dL (6.4-8.2); Sodium Level 136 mmol/L (136-145)
[2022-09-09 13:30] LABS: Vitamin D,25 Hydroxy 31.3 ng/mL
== END | disposition home or self-care (01) ==
LOC: MFPLAB 10:35
PROVIDERS: PCP Family Medicine; Visit Provider Family Medicine
DX: R25.2 Cramp and spasm (principal); R73.09 Other abnormal glucose
CPT/HCPCS: 36415; 80053; 82306; 83036

== ENCOUNTER → 2022-11-02 | Outpatient (CLI) | payer OTHER, SELFPAY ==
[2022-11-02 09:45] LABS: Absolute Lymphocyte Count 1.26 X10^3/uL (0.83-4.51); Basophil# 0.04 X10^3/uL; Basophil% 0.7 % (0-1); Eosinophil# 0.05 X10^3/uL; Eosinophils% 0.9 % (0-5); Hemoglobin 13.7 g/dL (12.0-15.0); Lymphocyte # 1.26 X10^3/ul (0.83-4.51); Lymphocyte % 21.9 % (19-41); Mean Corp Hgb Conc 33.4 g/dL (32-36); Mean Corpuscular Hgb 33.2 pg (27.0-32.0); Mean Corpuscular Volume 99.3 fL (81-99); Mean Platelet Vol. 9.1 fl (6.2-12.0); Monocyte# 0.42 X10^3/uL; Monocyte% 7.3 % (0-10); NRBC Flagged by Analyzer 0 % (0-5); Neutrophil # 3.95 X10^3/uL (2.7-7.7); Neutrophil % 68.7 % (47-70); Platelet Count 314 K/mm3 (150-450); RBC Distribution Width CV 12.6 % (11.6-14.6); RBC Distribution Width SD 45.7 fl (35.1-43.9); Red Blood Count 4.13 M/mm3 (4.2-5.4); White Blood Count 5.8 K/mm3 (4.4-11.0)
[2022-11-02 10:36] LABS: ALB/GLOB Ratio 0.9 RATIO (0.9-2.4); AST(SGOT) 25 U/L (15-37); Alanine Aminotransfer ALT/SGPT 38 U/L (13-56); Albumin, Serum 3.5 g/dL (3.2-5.0); Alkaline Phosphatase 103 U/L (45-117); Anion Gap 4 (5-15); BUN 11 mg/dL (7-18); BUN/Creat Ratio 19.3 RATIO (10-20); Calcium,Total 8.5 mg/dL (8.5-10.1); Chloride 105 mmol/L (98-107); Cholesterol 182 mg/dL (200); Creatinine, Serum 0.57 mg/dL (0.55-1.02); EST Glomerular Filtration Rate 116 mL/min (>60); Est Glom Filt Rate - Afr Amer 140 mL/min (>60); Globulin 3.9 g/dL (2.2-4.2); Glucose 97 mg/dL (74-106); High Density Lipoprotein 77 mg/dL; Potassium 4.3 mmol/L (3.5-5.1); Protein, Total 7.4 g/dL (6.4-8.2); Sodium Level 136 mmol/L (136-145); Triglycerides 62 mg/dL; Very Low Density Lipoprotein 12 mg/dL (5-40)
== END | disposition home or self-care (01) ==
PROVIDERS: PCP Family Medicine; Referring Provider Internal Medicine Rheumatology; Visit Provider Internal Medicine Rheumatology
DX: M06.4 Inflammatory polyarthropathy (principal); M79.7 Fibromyalgia; E78.5 Hyperlipidemia, unspecified
CPT/HCPCS: 36415; 80053; 80061; 85025

== ENCOUNTER → 2023-01-23 | Outpatient (CLI) | payer OTHER, SELFPAY ==
[2023-01-23 16:08] LABS: Absolute Neutrophil Count 4.9 X10^3/uL (2.0-7.7); Basophil# 0.03 X10^3/uL; Basophil% 0.4 % (0-1); Eosinophil# 0.09 X10^3/uL; Eosinophils% 1.2 % (0-5); Hematocrit 38.6 % (37-47); Hemoglobin 13.4 g/dL (12.0-15.0); Lymphocyte % 27.7 % (19-41); Mean Corp Hgb Conc 34.7 g/dL (32-36); Mean Corpuscular Hgb 34.1 pg (27.0-32.0); Mean Corpuscular Volume 98.2 fL (81-99); Mean Platelet Vol. 9.4 fl (6.2-12.0); Monocyte# 0.44 X10^3/uL; Monocyte% 5.8 % (0-10); NRBC Flagged by Analyzer 0 % (0-5); Neutrophil # 4.89 X10^3/uL (2.7-7.7); Neutrophil % 64.5 % (47-70); Platelet Count 338 K/mm3 (150-450); RBC Distribution Width CV 12.5 % (11.6-14.6); RBC Distribution Width SD 45.3 fl (35.1-43.9); Red Blood Count 3.93 M/mm3 (4.2-5.4); White Blood Count 7.6 K/mm3 (4.4-11.0)
[2023-01-23 16:57] LABS: ALB/GLOB Ratio 1.3 RATIO (0.9-2.4); AST(SGOT) 27 U/L (15-37); Alanine Aminotransfer ALT/SGPT 37 U/L (13-56); Albumin, Serum 3.7 g/dL (3.2-5.0); Alkaline Phosphatase 79 U/L (45-117); Anion Gap 7 (5-15); BUN 8 mg/dL (7-18); BUN/Creat Ratio 19.7 RATIO (10-20); Calcium,Total 8.8 mg/dL (8.5-10.1); Chloride 97 mmol/L (98-107); Creatinine, Serum 0.41 mg/dL (0.55-1.02); EST Glomerular Filtration Rate 170 mL/min (>60); Est Glom Filt Rate - Afr Amer 206 mL/min (>60); Globulin 2.9 g/dL (2.2-4.2); Glucose 90 mg/dL (74-106); Potassium 3.6 mmol/L (3.5-5.1); Protein, Total 6.6 g/dL (6.4-8.2); Sodium Level 131 mmol/L (136-145)
== END | disposition home or self-care (01) ==
PROVIDERS: PCP Family Medicine; Referring Provider Internal Medicine Rheumatology; Visit Provider Internal Medicine Rheumatology
DX: M06.4 Inflammatory polyarthropathy (principal); R56.9 Unspecified convulsions; Z79.899 Other long term (current) drug therapy; M79.7 Fibromyalgia; F32.A Depression, unspecified; F41.9 Anxiety disorder, unspecified; E78.5 Hyperlipidemia, unspecified
CPT/HCPCS: 36415; 80053; 85025

== ENCOUNTER → 2023-06-17 | Outpatient (CLI) | payer OTHER, SELFPAY ==
[2023-06-17 18:02] LABS: Absolute Lymphocyte Count 2.37 X10^3/uL (0.83-4.51); Absolute Neutrophil Count 4.6 X10^3/uL (2.0-7.7); Basophil# 0.04 X10^3/uL; Basophil% 0.5 % (0-1); Eosinophils% 1.3 % (0-5); Hematocrit 36.5 % (37-47); Hemoglobin 12.7 g/dL (12.0-15.0); Lymphocyte # 2.37 X10^3/ul (0.83-4.51); Mean Corp Hgb Conc 34.8 g/dL (32-36); Mean Corpuscular Volume 97.6 fL (81-99); Mean Platelet Vol. 9.3 fl (6.2-12.0); Monocyte# 0.54 X10^3/uL; Monocyte% 7.1 % (0-10); NRBC Flagged by Analyzer 0 % (0-5); Neutrophil # 4.55 X10^3/uL (2.7-7.7); Neutrophil % 59.6 % (47-70); Platelet Count 314 K/mm3 (150-450); RBC Distribution Width CV 11.9 % (11.6-14.6); Red Blood Count 3.74 M/mm3 (4.2-5.4); White Blood Count 7.6 K/mm3 (4.4-11.0)
[2023-06-17 18:41] LABS: ALB/GLOB Ratio 1.2 RATIO (0.9-2.4); AST(SGOT) 24 U/L (15-37); Alanine Aminotransfer ALT/SGPT 28 U/L (13-56); Albumin, Serum 3.7 g/dL (3.2-5.0); Alkaline Phosphatase 74 U/L (45-117); Anion Gap 7 (5-15); BUN 10 mg/dL (7-18); BUN/Creat Ratio 22.8 RATIO (10-20); Calcium,Total 8.5 mg/dL (8.5-10.1); Chloride 95 mmol/L (98-107); Creatinine, Serum 0.44 mg/dL (0.55-1.02); EST Glomerular Filtration Rate 156 mL/min (>60); Est Glom Filt Rate - Afr Amer 189 mL/min (>60); Globulin 3.2 g/dL (2.2-4.2); Glucose 93 mg/dL (74-106); Protein, Total 6.9 g/dL (6.4-8.2); Sodium Level 129 mmol/L (136-145)
== END | disposition home or self-care (01) ==
LOC: MFPLAB 15:17
PROVIDERS: PCP Family Medicine; Visit Provider Internal Medicine Rheumatology
DX: M06.4 Inflammatory polyarthropathy (principal); R56.9 Unspecified convulsions; Z79.899 Other long term (current) drug therapy; M79.7 Fibromyalgia; F32.A Depression, unspecified; F41.9 Anxiety disorder, unspecified; E78.5 Hyperlipidemia, unspecified
CPT/HCPCS: 36415; 80053; 85025

== ENCOUNTER → 2023-07-05 | Outpatient (CLI) | payer OTHER, SELFPAY ==
--- OUTSIDE RECORDS SUMMARY | 2023-07-05 09:57 | XMS RPT_ITS | CCD ---
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 disorder Seasonal allergies Stress incontinence PAST SURGICAL HISTORY Procedure Laterality Date DELIVERY ONLY TWIN DELIVERY COLONOSCOPY FLX DX W/COLLJ SPEC WHEN PFRMD 09/01/2013 Colonoscopy COLONOSCOPY FLX DX W/COLLJ SPEC WHEN PFRMD 11/09/2018 Colonoscopy EXTENSIVE FINGER SURGERY 12/2012 right 5th FOOT SURGERY HX Left 10/26/2021 HYSTERECTOMY HX 09/2010 LAPAROSCOPY SURG CHOLECYSTECTOMY Cholecystectomy, lap LIG/TRNSXJ FLP TUBE ABDL/VAG APPR UNI/BI Tubal ligation PAST SURGICAL HISTORY OF RUPTURED CYST PAST SURGICAL HISTORY OF 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 S SLING BLADDER 09/2010 pelvic reconstruction, bowels were out of place and was fixed FAMILY HISTORY Problem Relation Age of Onset Cancer Mother Skin Breast Cancer Mother Pancreatic Cancer Mother in june 2020 Diabetes Father Prostate Cancer Brother other (Lupus) Brother Cancer Maternal Grandmother Skin Colon Cancer Maternal Grandfather Heart Paternal Grandmother Diabetes Paternal Grandmother Heart Paternal Grandfather No Known Problems Daughter No Known Problems Son No Known Problems Son Diabetes Paternal Aunt SOCIAL HISTORY Social History Tobacco Use Smoking status: Former Types: Cigarettes Quit date: 03/27/2020 Years since quittin.9 Smokeless tobacco: Never Vaping Use Vaping Use: Former Substance Use Topics Alcohol use: No Drug use: No REVIEW OF SYSTEMS Abdomen: No abdominal pain, nausea, vomiting, diarrhea, or constipation. No bloating, early satiety, indigestion, or increased flatulence. Bladder: No dysuria, gross hematuria, urinary frequency, urinary urgency, or incontinence Breast: No breast lumps, nipple d/c, overlying skin changes, redness or skin retraction Allergies and current medication updated:Yes EXAM: BP 112/68 Ht 5' 1 (1.55m) Wt 137 lb (62.1kg) LMP 08/19/2010 BMI 25.90 kg/(m^2). GENERAL: pleasant, female in no apparent distress HEENT: Normocephalic, atraumatic, mucus membranes moist, and no lesions NECK: Supple, full range of motion, no adenopathy, and thyroid normal DERMATOLOGY: Normal, without lesions, non-icteric, and non-hirsute BREAST: soft, non-tender, symmetric, no dominant mass, normal nipple-areolar complex, no lymphadenopathy, and no nipple discharge CHEST: Normal inspiratory effort ABDOMEN: soft, non-tender, and no masses PELVIC: external genitalia normal, normal Bartholin's glands, urethra, [place]. Elizabeth's glands, no vulvar lesions, good vaginal support, physiologic discharge present, normal appearing perineal body and perianal region BIMANUAL: no adnexal masses, non-tender, and uterus surgically absent RECTOVAGINAL: deferred. NEURO: alert and oriented x3,exam grossly non-focal EXTREMITIES: normal ASSESSMENT/PLAN: 1) Health maintenance: Pap/HPV screening no longer needed Mammogram up to date - managed by [facility] Calcium/Vitamin D supplementation information provided. Colonoscopy due next year. 2) Patient grieving loss of - Medication managed by PCP - Has counseling in place 3) Follow up one year or sooner as needed Laney Murphy APRN.RENALDO Benjamin APRN.CNP documented in this encounter [facility] 01-15-2023 Miscellaneous Notes Patient has yearly exam 02/20/2023. Requesting refill of Acyclovir documented in this encounter [facility] 12-06-2022 History of Present illness Narrative Images from the original note were not included. Chief Complaint Patient presents with 6 Month Follow-up Left breast pain that comes and goes, right breast pain that is less frequent HPI: Liliam Blankenship is a 57 y.o. female who presents for abnormal imaging follow up. She was first seen here at the breast center 06/05/[address] Avalos for evaluation of left breast pain x 4 months and abnormal breast imaging. -05/23/2022: LEFT diagnostic mammogram/ultrasound ([facility]) demonstrated retroareolar ductal dilation -06/07/2022: LEFT breast ultrasound here at [facility] demonstrated mildly dilated ducts. The radiologist notes this likely reflects debris. These findings were felt to be probably benign (BI-RADS 3) and a 6-month follow-up left breast ultrasound was recommended. -11/12/2022: FAST breast MRI (due to family history and dense breast tissue) benign (BI-RADS 2) and demonstrates dilated ducts in the left breast. -12/06/2022: Bilateral diagnostic mammogram/left breast ultrasound today are benign (BI-RADS 2) and demonstrate an interval decrease in ductal dilation and internal echoes which are consistent with benign debris. She is recommended to return to routine screening mammogram of both breasts in 1 year. She has a significant family history of cancer. See family history section of this note. She did have [employer] panel panel genetic testing 05/2022 which was negative for deleterious mutation. Results scanned into media dated 06/25/2022. She has no breast history. Today she still notes intermittent breast pain. She states it is bilateral (worse than right). She does have chronic neck/back pain and we discussed this could be referred pain. She was also recently diagnosed with fibromyalgia. We discussed her breast pain may be related to this. We discussed conservative measures for breast pain including OTC analgesics, heat/ice, and wearing a supportive bra. We reviewed her normal imaging and discussed if she has a new/worsening symptoms, she should call to be seen. No additional breast concerns today. She denies breast mass, skin change, nipple change, nipple discharge. No prior breast biopsy or breast surgery. Her lifetime risk of breast cancer estimated by the Tyrer-Cuzick V8 model (recalculated today, adding in negative genetic testing and breast density from today's mammogram being BI-RADS B) is 11.69%. We discussed given her tissue density on today's mammogram (BIRADS B) and risk score, breast MRI not indicated at this time per NCCN guidelines. She is agreeable to continue annual screening mammograms. She would prefer to come here to the breast center for annual clinical breast exam. She notes that she has recently been diagnosed with rheumatoid arthritis and fibromyalgia. She is requesting a referral to a refuse and recycling worker here at [facility]. Risk Factors: Menarche: 11 Age of first : 21; Menopause: Post Physical Activity: She was previously limited due to an ankle injury but plans to begin walking. We discussed the [place] recommends that adults get at least 150 minutes of moderate intensity or 75 minutes of vigorous intensity activity each week Nutrition: She states that her diet could be better. We discussed a plant based diet and limiting added hormones in her meat and dairy. Weight: Stable; BMI 28.17 Smoking: Former; quit 13 years ago ETOH: None Breast Imaging: Bilateral diagnostic mammogram/LEFT breast ultrasound 12/06/2022 TISSUE DENSITY: BIRADS B - There are scattered fibroglandular densities. Images were reviewed with CAD. FINDINGS: The patient presented for surveillance of prominent left breast ducts. No new suspicious masses, architectural distortions, or suspiciously clustered microcalcifications were identified in the right or left breast. There has been no significant interval change from the prior study. Ultrasound follow-up was also performed. BREAST ULTRASOUND: FINDINGS: Again seen at 12:00 in subareolar position are mildly dilated lactiferous ducts containing avascular echoes. The degree of distention and internal echogenicity has decreased. This is a benign change. No further follow-up is needed. IMPRESSION: Interval decrease in ductal dilatation and internal echoes which are consistent with benign debris. There is no mammographic or targeted sonographic evidence of malignancy. The patient may resume routine annual screening mammography. ASSESSMENT: Category 2 Benign RECOMMENDATION: Return to normal screening Bilateral FAST breast MRI 11/12/2022 FINDINGS: There is mild bilateral background enhancement. There are T2 hyperintense nonenhancing dilated ducts in the subareolar region bilaterally. Right Breast: There is no suspicious mass or non-mass enhancement in the right breast. Left Breast: There is no suspicious mass or non-mass enhancement in the left breast. Other: No axillary or internal mammary lymphadenopathy is appreciated. IMPRESSION: No MRI evidence of malignancy in either breast. T2 hyperintense nonenhancing dilated ducts are seen in the left subareolar region corresponding to previously described ultrasound findings. Continued short-term ultrasound follow-up is recommended. ASSESSMENT: Category 2 Benign RECOMMENDATION: Breast MRI in 1 year Bilateral Family history includes: Mother with breast, pancreatic, liver cancer and melanoma age 79 Brother with prostate cancer age 60 Brother with testicular cancer age 53 Maternal grandmother with melanoma and bone cancer age 50 Maternal grandfather with colon cancer age 47 Maternal aunt with pancreatic cancer age 70 Past Medical History: Diagnosis Date Epilepsy (HCC) High cholesterol Past Surgical History: Procedure Laterality Date SECTION, CLASSIC 1992 CHOLECYSTECTOMY 2004 FOOT SURGERY Left 10/2021 left ankle neuroma removal HYSTERECTOMY 2011 and they tacked the bladder at the same time Allergies Allergen Reactions Amoxicillin Other reaction(s): Nausea Amoxicillin-Pot Clavulanate Other reaction(s): GI Upset, GI Upset Other reaction(s): GI Upset Clavulanic Acid Other reaction(s): Nausea Other Other Current Outpatient Medications on File Prior to Visit Medication Sig Dispense Refill albuterol 108 (90 Base) MCG/ACT inhaler as needed. atorvastatin (Lipitor) 20 MG tablet carBAMazepine (TEGretol) 200 MG tablet 2 times daily. citalopram (CeleXA) 40 MG tablet traZODone (Desyrel) 50 MG tablet 1 1/2 TABLET 30-60 MIN PRIOR TO SLEEP FOR INSOMNIA No current facility-administered medications on file prior to visit. Review of Systems: Review of Systems Constitutional: Negative. HENT: Negative. Eyes: Negative. Respiratory: Negative. Cardiovascular: Negative. Gastrointestinal: Negative. Endocrine: Negative. Genitourinary: Negative. Musculoskeletal: Negative. Skin: Negative. Allergic/Immunologic: Negative. Neurological: Negative. Hematological: Negative. Psychiatric/Behavioral: Negative. BP 122/69 (BP Location: Left arm, Patient Position: Sitting, BP Cuff Size: Small adult) Pulse 82 Temp 36.5 C (97.7 F) Resp 12 Ht 5' 2 (1.575 m) Wt 154 lb (69.9 kg) BMI 28.17 kg/m Physical Exam Constitutional: General: She is not in acute distress. Appearance: Normal appearance. She is not ill-appearing. HENT: Head: Normocephalic and atraumatic. Pulmonary: Effort: Pulmonary effort is normal. No respiratory distress. Chest: Breasts: Breasts are symmetrical. Right: Tenderness present. No inverted nipple, mass, nipple discharge or skin change. Left: Tenderness present. No inverted nipple, mass, nipple discharge or skin change. Abdominal: Palpations: Abdomen is soft. Musculoskeletal: Cervical back: Normal range of motion and neck supple. Lymphadenopathy: Cervical: No cervical adenopathy. Upper Body: Right upper body: No axillary adenopathy. Left upper body: No axillary adenopathy. Skin: General: Skin is warm and dry. Neurological: General: No focal deficit present. Mental Status: She is alert and oriented to person, place, and time. Psychiatric: Mood and Affect: Mood normal. Behavior: Behavior normal. Assessment/Plan: 1. Family history of breast cancer -She has had negative genetic testing 2. Encounter for screening mammogram for breast cancer - Bilateral screening mammogram with tomosynthesis; Future -Due 11/2023 -She would prefer to follow here at the breast center for annual clinical breast exams -Follow-up 1 year -They, we discussed breast self-awareness and breast cancer risk reduction strategies including plant-based diet, aerobic exercise, maintaining healthy BMI, nicotine avoidance, alcohol limitation 3. Breast pain -Normal diagnostic imaging -We discussed conservative measures for breast pain including OTC analgesics, heat/ice, and wearing a supportive bra. We discussed if she has new/worsening symptoms, she should call to be seen 4. Family history of pancreatic cancer -She has had negative genetic testing 5. Rheumatoid arthritis, involving unspecified site, unspecified whether rheumatoid factor present (HCC) - Ambulatory referral to Rheumatology; Future -Referral per patient request Call with any breast concerns or questions PATRIZIA Gavin CNP Please disregard any typographical errors. This note was dictated using voice recognition software. documented in this encounter [facility] 12-06-2022 Instructions PATRIZIA Gavin CNP - 12/06/2022 3:00 PM EDT Help Reduce Your Risk of Breast Cancer Maintain a Lean Body Mass Maintaining a normal body weight will help reduce your risk of cancer, and other health problems including heart disease and diabetes. -Overweight women have a higher risk of being diagnosed with breast cancer compared to women who maintain a healthy weight, especially after menopause. Eat Healthy Eating healthy foods will help reduce your risk of cancer and other health problems. - It is recommended to a eat plant- based diet. - Eat at least 5 servings of a variety of colorful fruits and vegetables daily. This could reduce your breast cancer risk by 11%. -Emphasize a diet rich in whole grains, beans, nuts, fish, and olive oil. -Select hormone free meat and dairy products -Try to limit red meat, processed/ refined carbohydrates, smoked and pickled food - Avoid processed meats and sweetened foods. Increase Physical Activity The average breast cancer risk reduction associated with physical activity is 12% -The [place] [employer] recommends that adults get at least 150 minutes of moderate intensity or 75 minutes of vigorous intensity activity each week (or a combination of these), preferably spread throughout the week. Stop Tobacco Use and Limit Alcohol Use - Stop the use of tobacco products. Smoking is linked to a higher risk of breast cancer in younger, premenopausal women. If you use tobacco, talk with your primary care provider about how to quit. - Keep alcohol to under four drinks a week. Research shows an association between increased alcohol intake and breast cancer. Breast Health - Perform self-breast exams periodically. Be familiar with your breasts. - Have a clinical breast exam performed every 6-12 months - Have an annual mammogram - Begin annual Breast MRI at age 40, Or 10 years before the age of the relative when first diagnosed with breast cancer (For women with a lifetime risk of breast cancer greater than or equal to 20%) - Call if you notice any changes in your breasts Preventative Care Continue to follow-up with your primary care provider for other recommended routine cancer screenings, immunizations, and other preventive screenings including monitoring your blood pressure, blood sugar and cholesterol. documented in this encounter [facility] 06-04-2022 Miscellaneous Notes Noted. Thank you, Jade Benjamin APRN.CNP Encounter can be closed. Spoke with pt to see if the [facility] had gotten hold of her to schedule her Ductogram. Pt stated that when they contacted her they wanted her to repeat a mammogram, I had explained to pt earlier that this would most likely be the case and not to be surprised by this. Pt stated that she is not going to just keep repeating the same test so she stated that she has found another physician and is going to him. I did let pt know that there is a diagnostic mammogram scheduled for her on 06/18/22, she stated that she was not aware of this and that she won't be coming to this appt. Appointment canceled. Please advise with any further instructions. Yessenia Murcia LPN Received call from nurse Martin from the [facility], stated that they received the report for her mammogram, ultrasound and uploaded images from [facility]. It will take a couple days for radiologist to review and then their office will contact pt to schedule procedure. Pt has been updated as to where we are in getting her scheduled. Please leave note open until can see that appointment has been scheduled. Yessenia Murcia LPN Spoke with pt and explained results and testing needed. [facility] returned call and they are uploading the images into our system so the radiologist can view these. Message sent to Ly Pung, Nurse at the breast center that those images will be available to their office. Will await further directives. Yessenia Murcia LPN Spoke with Socorro Arechiga at [facility]. [phone]. Report from mammogram and breast ultrasound faxed to that office at [phone]. The Radiologist needs to review her report as well as needing a disc of her actual films. The radiologist will then decide how to proceed from that point and contact the pt. [facility] mammography dept contacted to obtain disc of films done 05/23/22, message left asking for a return call and all that was needed. Will await return call from their office. Yessenia Murcia LPN Working on ordering correct testing. Jade Benjamin APRN.RENALDO Patient had mammogram done at [facility]. Asking about her results. States [facility] was to fax the results to our office yesterday. Needs additional imaging. Result printed from [employer]. In provider's mailbox to review. Ciera Quispe RN documented in this encounter [facility] 05-28-2022 Note HNO ID: [id number] Author: Lcay Negron MD Service: ? Author Type: Physician Type: Progress Notes Filed: 05/28/2022 5:52 PM Note Text: I am asked to review outside imaging on this patient prior to scheduling possible imaging/procedure at [facility]. She presented 05/23/2022 for evaluation of pain in the subareolar left breast. After left diagnostic mammogram/ultrasound, she was referred for a ductogram on the left. Submitted exams include left breast diagnostic mammogram and left subareolar ultrasound from that same date. Mammogram interpretation 05/23/2022: Note that only the tomosynthesis slab images are provided. I do not have 2D imaging of the breast in order to determine stability of the fibroglandular pattern. Targeted left subareolar ultrasound was performed. No discrete focal findings are seen on the provided imaging to explain the patient's left breast pain. The outside ultrasound interpretation questioned echogenic intraductal foci with recommendation for ductogram. Impression: Left breast-additional diagnostic imaging of the left breast is recommended, including left diagnostic mammogram and targeted ultrasound for evaluation of the region of pain. Any further management of the patient's symptoms should be based on results of additional diagnostic imaging. Repeat ultrasound of the subareolar breast is also recommended. Note that the recommendation from outside facility was for correlation with a left ductogram for possible intraductal findings. In the absence of left discharge or other specific focal symptoms, I do not see a specific indication for ductogram at this time. If the left subareolar intraductal findings are felt to be reproducible, then ultrasound-guided biopsy could be considered at that time. [facility] 05-28-2022 History of Present illness Narrative I am asked to review outside imaging on this patient prior to scheduling possible imaging/procedure at [facility]. She presented 05/23/2022 for evaluation of pain in the subareolar left breast. After left diagnostic mammogram/ultrasound, she was referred for a ductogram on the left. Submitted exams include left breast diagnostic mammogram and left subareolar ultrasound from that same date. Mammogram interpretation 05/23/2022: Note that only the tomosynthesis slab images are provided. I do not have 2D imaging of the breast in order to determine stability of the fibroglandular pattern. Targeted left subareolar ultrasound was performed. No discrete focal findings are seen on the provided imaging to explain the patient's left breast pain. The outside ultrasound interpretation questioned echogenic intraductal foci with recommendation for ductogram. Impression: Left breast-additional diagnostic imaging of the left breast is recommended, including left diagnostic mammogram and targeted ultrasound for evaluation of the region of pain. Any further management of the patient's symptoms should be based on results of additional diagnostic imaging. Repeat ultrasound of the subareolar breast is also recommended. Note that the recommendation from outside facility was for correlation with a left ductogram for possible intraductal findings. In the absence of left discharge or other specific focal symptoms, I do not see a specific indication for ductogram at this time. If the left subareolar intraductal findings are felt to be reproducible, then ultrasound-guided biopsy could be considered at that time. documented in this encounter [facility] 05-16-2022 Note HNO ID: [id number] Author: Jade Benjamin APRN.ROD PLACER Service: ? Author Type: Nurse Practitioner Type: Progress Notes Filed: 05/16/2022 4:16 PM Note Text: BREAST LUMP HISTORY: This is a 57 year old female Presents with mastalgia left Tenderness Yes, left lower breast and nipple area x 4 months Any history breast mass No Caffeine use Yes 5 cups/day Last [id number] normal Any previous breast surgery No Any family history breast disease/ breast cancer Yes- mother breast cancer OB History T1 L3 SAB0 IAB0 Ectopic0 Multiple1 Live Births0 Comment: [employer]. PAST MEDICAL HISTORY Diagnosis Date DVT of upper extremity (deep vein thrombosis) (HCC) left arm Eczema Elevated cholesterol Genital herpes, unspecified Localization-related (focal) (partial) epilepsy and epileptic syndromes with simple partial seizures, without mention of intractable epilepsy SEIZURE DISORDER Mental disorder Seasonal allergies Stress incontinence PAST SURGICAL HISTORY Procedure Laterality Date DELIVERY ONLY TWIN DELIVERY COLONOSCOPY FLX DX W/COLLJ SPEC WHEN PFRMD 09/01/2013 Colonoscopy COLONOSCOPY FLX DX W/COLLJ SPEC WHEN PFRMD 11/09/2018 Colonoscopy EXTENSIVE FINGER SURGERY 12/2012 right 5th FOOT SURGERY HX Left 10/26/2021 HYSTERECTOMY HX 09/2010 LAPAROSCOPY SURG CHOLECYSTECTOMY Cholecystectomy, lap LIG/TRNSXJ FLP TUBE ABDL/VAG APPR UNI/BI Tubal ligation PAST SURGICAL HISTORY OF RUPTURED CYST PAST SURGICAL HISTORY OF 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 S SLING BLADDER 09/2010 pelvic reconstruction, bowels were out of place and was fixed FAMILY HISTORY Problem Relation Age of Onset Cancer Mother Skin Breast Cancer Mother Pancreatic Cancer Mother in june 2020 Diabetes Father Prostate Cancer Brother other (Lupus) Brother Cancer Maternal Grandmother Skin Colon Cancer Maternal Grandfather Heart Paternal Grandmother Diabetes Paternal Grandmother Heart Paternal Grandfather No Known Problems Daughter No Known Problems Son No Known Problems Son Diabetes Paternal Aunt SOCIAL HISTORY Social History Tobacco Use Smoking status: Former Types: Cigarettes Quit date: 03/27/2020 Years since quittin.1 Smokeless tobacco: Never Tobacco comments: 5 CIGARETTES PER DAY Vaping Use Vaping Use: Former Substance Use Topics Alcohol use: No Drug use: No PAST SURGICAL HISTORY Procedure Laterality Date DELIVERY ONLY TWIN DELIVERY COLONOSCOPY FLX DX W/COLLJ SPEC WHEN PFRMD 09/01/2013 Colonoscopy COLONOSCOPY FLX DX W/COLLJ SPEC WHEN PFRMD 11/09/2018 Colonoscopy EXTENSIVE FINGER SURGERY 12/2012 right 5th FOOT SURGERY HX Left 10/26/2021 HYSTERECTOMY HX 09/2010 LAPAROSCOPY SURG CHOLECYSTECTOMY Cholecystectomy, lap LIG/TRNSXJ FLP TUBE ABDL/VAG APPR UNI/BI Tubal ligation PAST SURGICAL HISTORY OF RUPTURED CYST PAST SURGICAL HISTORY OF 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 traZODone (DESYREL) 50 mg tablet Take 1.5 tablets by mouth daily at bedtime. atorvastatin (LIPITOR) 20 mg tablet Take 1 tablet by mouth once daily. albuterol HFA (PROVENTIL HFA, VENTOLIN HFA) 90 mcg/actuation inhaler Inhale 2 Puffs as instructed every 6 hours as needed for Wheezing/Shortness of Breath. multivitamins(DAILY MULTIVITAMIN TAB) Take one tablet daily. carbamazepine(TEGRETOL XR 200 MG 12 HR TAB) Take one tablet twice daily. CITALOPRAM 20 MG TAB Take one tablet daily. No current facility-administered medications for this visit. Allergies As of Date: 05/16/2022 Allergen Noted Reaction AUGMENTIN [AMOXICILLIN-POT CLAVUL*06/16/2017 GI Upset SEASONAL ALLERGIES 10/22/2011 Other: See Comments Fully Assessed 05/16/2022 EXAMINATION: There is no concerning cervical, supraclavicular, or axillary lymphadenopathy. She has unilateral fibrocystic changes on the left. On the left there is fibrocysytic changes and moderate tenderness, but no skin changes or nipple discharge. IMPRESSION: left breast pain ASSESSMENT/PLAN: 1. Breast pain in female - ICD9: 611.71, ICD10: N64.4 - CONSTANCE DIAGNOSTIC LT - US BREAST LTD LT - Fibrocystic breast education given to pt Jade Benjamin APRN.CNP Medical Decision Making: Problems: Low: Acute, uncomplicated illness or injury Data: Unique test(s) ordered: 2 Risk: Low: Low risk from testing/treatment Medical Decision Making Level: 3 - Low [facility] 05-16-2022 Instructions Jade Benjamin APRN.CNP - 05/16/2022 3:34 PM EST Management of Benign Breast Pain / Fibrocystic Changes Decrease or avoid intake of caffeine, including coffee, teas, sodas, and chocolate. Decrease or avoid nicotine. Wear a support or sports (not underwire) bra. Take [id number]-cdtutub ibuprofen (Advil/Motrin) or other NSAIDs, such as naproxen (Aleve). Take 3 grams (3000 mg.) of evening primrose oil (available uqms-rgn-lvayyou) in divided doses for 2 months. Take warm showers. Use warm compresses. documented in this encounter [facility] 05-16-2022 History of Present illness Narrative BREAST LUMP HISTORY: This is a 57 year old female Presents with mastalgia left Tenderness Yes, left lower breast and nipple area x 4 months Any history breast mass No Caffeine use Yes 5 cups/day Last [id number] normal Any previous breast surgery No Any family history breast disease/ breast cancer Yes- mother breast cancer OB History T1 L3 SAB0 IAB0 Ectopic0 Multiple1 Live Births0 Comment: [employer]. PAST MEDICAL HISTORY Diagnosis Date DVT of upper extremity (deep vein thrombosis) (HCC) left arm Eczema Elevated cholesterol Genital herpes, unspecified Localization-related (focal) (partial) epilepsy and epileptic syndromes with simple partial seizures, without mention of intractable epilepsy SEIZURE DISORDER Mental disorder Seasonal allergies Stress incontinence PAST SURGICAL HISTORY Procedure Laterality Date DELIVERY ONLY TWIN DELIVERY COLONOSCOPY FLX DX W/COLLJ SPEC WHEN PFRMD 09/01/2013 Colonoscopy COLONOSCOPY FLX DX W/COLLJ SPEC WHEN PFRMD 11/09/2018 Colonoscopy EXTENSIVE FINGER SURGERY 12/2012 right 5th FOOT SURGERY HX Left 10/26/2021 HYSTERECTOMY HX 09/2010 LAPAROSCOPY SURG CHOLECYSTECTOMY Cholecystectomy, lap LIG/TRNSXJ FLP TUBE ABDL/VAG APPR UNI/BI Tubal ligation PAST SURGICAL HISTORY OF RUPTURED CYST PAST SURGICAL HISTORY OF 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 S SLING BLADDER 09/2010 pelvic reconstruction, bowels were out of place and was fixed FAMILY HISTORY Problem Relation Age of Onset Cancer Mother Skin Breast Cancer Mother Pancreatic Cancer Mother in june 2020 Diabetes Father Prostate Cancer Brother other (Lupus) Brother Cancer Maternal Grandmother Skin Colon Cancer Maternal Grandfather Heart Paternal Grandmother Diabetes Paternal Grandmother Heart Paternal Grandfather No Known Problems Daughter No Known Problems Son No Known Problems Son Diabetes Paternal Aunt SOCIAL HISTORY Social History Tobacco Use Smoking status: Former Types: Cigarettes Quit date: 03/27/2020 Years since quittin.1 Smokeless tobacco: Never Tobacco comments: 5 CIGARETTES PER DAY Vaping Use Vaping Use: Former Substance Use Topics Alcohol use: No Drug use: No PAST SURGICAL HISTORY Procedure Laterality Date DELIVERY ONLY TWIN DELIVERY COLONOSCOPY FLX DX W/COLLJ SPEC WHEN PFRMD 09/01/2013 Colonoscopy COLONOSCOPY FLX DX W/COLLJ SPEC WHEN PFRMD 11/09/2018 Colonoscopy EXTENSIVE FINGER SURGERY 12/2012 right 5th FOOT SURGERY HX Left 10/26/2021 HYSTERECTOMY HX 09/2010 LAPAROSCOPY SURG CHOLECYSTECTOMY Cholecystectomy, lap LIG/TRNSXJ FLP TUBE ABDL/VAG APPR UNI/BI Tubal ligation PAST SURGICAL HISTORY OF RUPTURED CYST PAST SURGICAL HISTORY OF 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 traZODone (DESYREL) 50 mg tablet Take 1.5 tablets by mouth daily at bedtime. atorvastatin (LIPITOR) 20 mg tablet Take 1 tablet by mouth once daily. albuterol HFA (PROVENTIL HFA, VENTOLIN HFA) 90 mcg/actuation inhaler Inhale 2 Puffs as instructed every 6 hours as needed for Wheezing/Shortness of Breath. multivitamins(DAILY MULTIVITAMIN TAB) Take one tablet daily. carbamazepine(TEGRETOL XR 200 MG 12 HR TAB) Take one tablet twice daily. CITALOPRAM 20 MG TAB Take one tablet daily. No current facility-administered medications for this visit. Allergies As of Date: 05/16/2022 Allergen Noted Reaction AUGMENTIN [AMOXICILLIN-POT CLAVUL*06/16/2017 GI Upset SEASONAL ALLERGIES 10/22/2011 Other: See Comments Fully Assessed 05/16/2022 EXAMINATION: There is no concerning cervical, supraclavicular, or axillary lymphadenopathy. She has unilateral fibrocystic changes on the left. On the left there is fibrocysytic changes and moderate tenderness, but no skin changes or nipple discharge. IMPRESSION: left breast pain ASSESSMENT/PLAN: 1. Breast pain in female - ICD9: 611.71, ICD10: N64.4 - CONSTANCE DIAGNOSTIC LT - US BREAST LTD LT - Fibrocystic breast education given to pt Jade Benjamin APRN.CNP Medical Decision Making: Problems: Low: Acute, uncomplicated illness or injury Data: Unique test(s) ordered: 2 Risk: Low: Low risk from testing/treatment Medical Decision Making Level: 3 - Low documented in this encounter [facility] 01-31-2022 Miscellaneous Notes Patient changed insurance. Needs prescription sent to [email or web address] Mail order. RX pending. Requested Prescriptions Pending Prescriptions Disp Refills acyclovir (ZOVIRAX) 400 mg tablet 180 tablet 2 Sig: Take 1 tablet by mouth twice daily. documented in this encounter [facility] 11-15-2021 Miscellaneous Notes November 15, 2021 PID: [id number] Liliam Blankenship [address] [place] [address] Dear Ms. Blankenship, We are pleased to inform you that the results of your recent breast imaging exam on 11/15/2021 are normal. Your mammogram demonstrates that you have dense breast tissue, which could hide abnormalities. Dense breast tissue, in and of itself, is a relatively common condition. Therefore, this information is not provided to cause undue concern; rather, it is to raise your awareness and promote discussion with your health care provider regarding the presence of dense breast tissue in addition to other risk factors. Early detection of cancer is very important. We also understand recommendations regarding breast cancer screening are controversial. Please discuss with your primary care provider which strategy is best for you and whether a mammogram is right for you. Your imaging studies and report will be kept on file at [facility] as part of your permanent medical record and are available for your continuing care. Thank you for allowing us to help in meeting your health care needs. Sincerely, Dr. Tatum Interpreting Radiologist [facility] (Normal over 40) documented in this encounter [facility] 11-15-2021 History of Present illness Narrative Radiology Service Progress Note PATIENT NAME: Liliam Blankenship DATE OF SERVICE: November 15, 2021 TIME: 7:58 AM PATIENT IDENTITY VERIFICATION COMPLETED USING TWO (2) IDENTIFIERS: Name and Date of confirmed by patient verbally. FALL SCREENING: Has the patient had 2 falls in the last year or 1 fall with injury or currently using an Ambulatory Assistive Device (Walker, Cane, Wheelchair, Crutches, etc.)? No PATIENT GENDER DATA: Female. status: : No status: NO. PATIENT RELEVANT IMPLANT DATA REVIEWED: Not Applicable RADIOLOGY DEPARTMENT: Mammography PERIPHERAL IV DATA: Not applicable SIGNED BY: RT Audra(R) November 15, 2021 7:58 AM documented in this encounter [facility] 11-15-2021 History of Present illness Narrative Liliam is a 56 year old who presents for an annual gynecologic exam without complaints. Postmenopausal: Hysterectomy age 45 HRT use: No. Last Pap: 2010 normal HPV: 2009 negative History of abnormal pap: No Last mammogram: 2021 today History of abnormal mammogram: No Sexually active: Yes Pain with intercourse: No Postcoital bleeding: No Vaginal dryness: No OB History T1 L3 SAB0 IAB0 Ectopic0 Multiple1 Live Births0 Comment: [employer]. It Support Specialist History LMP: 08/19/2010, Hysterectomy Age at Menarche: Age at First : Age at Menopause: It Support Specialist History Comments: Sexual Activity: Not Currently; Male; hysterectomy Contraception: Tubal Ligation, Surgical PAST MEDICAL HISTORY Diagnosis Date DVT of upper extremity (deep vein thrombosis) (HCC) left arm Eczema Elevated cholesterol Genital herpes, unspecified Localization-related (focal) (partial) epilepsy and epileptic syndromes with simple partial seizures, without mention of intractable epilepsy SEIZURE DISORDER Mental disorder Seasonal allergies Stress incontinence PAST SURGICAL HISTORY Procedure Laterality Date DELIVERY ONLY TWIN DELIVERY COLONOSCOP W/ OR W/O [facility] SPEC 09/01/2013 Colonoscopy COLONOSCOP W/ OR W/O [facility] SPEC 11/09/2018 Colonoscopy EXTENSIVE FINGER SURGERY 12/2012 right 5th HYSTERECTOMY HX 09/2010 LAPAROSCOPIC CHOLEYCYSTECTOMY Cholecystectomy, lap LIGATE FALLOPIAN TUBE Tubal ligation PAST SURGICAL HISTORY OF RUPTURED CYST S SLING BLADDER 09/2010 pelvic reconstruction, bowels were out of place and was fixed FAMILY HISTORY Problem Relation Age of Onset Cancer Mother Skin Breast Cancer Mother Pancreatic Cancer Mother in june 2020 Diabetes Father Prostate Cancer Brother other (Lupus) Brother Cancer Maternal Grandmother Skin Colon Cancer Maternal Grandfather Heart Paternal Grandmother Diabetes Paternal Grandmother Heart Paternal Grandfather No Known Problems Daughter No Known Problems Son No Known Problems Son Diabetes Paternal Aunt SOCIAL HISTORY Social History Tobacco Use Smoking status: Former Smoker Types: Cigarettes Quit date: 03/27/2020 Years since quittin.6 Smokeless tobacco: Never Used Tobacco comment: 5 CIGARETTES PER DAY Vaping Use Vaping Use: Former Substance Use Topics Alcohol use: No Drug use: No REVIEW OF SYSTEMS Abdomen: No abdominal pain, nausea, vomiting, diarrhea, or constipation. No bloating, early satiety, indigestion, or increased flatulence. Bladder: No dysuria, gross hematuria, urinary frequency, urinary urgency, or incontinence Breast: No breast lumps, nipple d/c, overlying skin changes, redness or skin retraction Allergies and current medication updated:Yes EXAM: LMP 08/19/2010 GENERAL: pleasant, female in no apparent distress HEENT: Normocephalic, atraumatic, mucus membranes moist and no lesions NECK: Supple, full range of motion, no adenopathy and thyroid normal DERMATOLOGY: Normal, without lesions, non-icteric and non-hirsute BREAST: soft, non-tender, symmetric, no dominant mass, normal nipple-areolar complex, no lymphadenopathy and no nipple discharge CHEST: Normal inspiratory effort ABDOMEN: soft, non-tender and no masses PELVIC: external genitalia normal, normal Bartholin's glands, urethra, [facility]. Elizabeth's glands, no vulvar lesions, good vaginal support, physiologic discharge present, normal appearing perineal body and perianal region, cervix surgically absent BIMANUAL: no adnexal masses, non-tender and uterus surgically absent RECTOVAGINAL: deferred. NEURO: alert and oriented x3,exam grossly non-focal EXTREMITIES: normal ASSESSMENT/PLAN: 1) Health maintenance: Pap/HPV screening no longer needed Mammogram ordered Mammogram up to date Nutrition, exercise and routine health maintenance exams reviewed. Calcium/Vitamin D supplementation information provided. Colon cancer screening: up to date with screening 2) Follow up one year or sooner as needed Jade Benjamin APRN.RENALDO documented in this encounter [facility] 10-26-2021 Note [facility] HISTORY & PHYSICAL NAME ACCOUNT SEX AGE ADMIT DISCHARGE PT MED. RECORD# NUMBER DATE DATE TYPE LILIAM BLANKENSHIP [id number] F 56 10/25/21 10/25/21 2 L [id number] ROOM: DATE OF : 63 DICTATING PHYSICIAN: Manju Ceja PREOPERATIVE DIAGNOSES: 1. 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 2. 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 PLANNED PROCEDURE: 1. Excision of neuroma of left second intermetatarsal space. 2. Excision of soft tissue tumor of left rear foot. HISTORY OF PRESENT ILLNESS: The patient is known to me from my private office, where she had presented and failed conservative treatment, including toe spacing, change in shoes, cortisone injections, alcohol sclerosing injections, etc., to the neuroma of the left foot. She states that she is ready to go forward with surgical intervention due to the amount of pain she is experiencing. MRI confirmed a neuroma of the left forefoot but did not show enough anatomy proximally to fully assess the soft tissue tumor. The soft tissue tumor has clinical signs of a lipoma and is painful in her shoes and is near the subtalar joint. PAST MEDICAL HISTORY: See chart. MEDICATIONS: See chart. ALLERGIES: Penicillin. ASSESSMENT/PLAN: The risks, complications, and alternative treatments were reviewed in detail, and no guarantees were given. We did discuss the possibility of recurrence of either lesion being removed surgically. We discussed the possibility of continued pain and need for surgery as well as slow healing and infection. Consent was reviewed and signed, and the patient will present for outpatient surgical intervention on the morning of October 26, 2021, at [facility]. Dictated By: Manju Ceja DPM 10/25/21 17:11 JOB #: [id number] Transcribed By: isadora 10/25/21 18:05 Electronically signed by: E-SIGN MANJU CEJA Page 1 of 2 LILIAM BLANKENSHIP KELLY L :1965 10/26/21 10:04 Update to H&P: [ ] No changes: I have examined the patient and reviewed the H&P and there are no changes. [ ] As previously dictated with the following changes: PHYSICIAN SIGNATURE: TIME: DATE: Page 2 of 2 LILIAM BLANKENSHIP [facility] [place] [facility] Diagnosis Encounter for screening mammogram for breast cancer [facility] [place] [facility]* Diagnosis Breast pain in female- Primary Mastodynia documented in this encounter [facility] note* Diagnosis Abnormal finding on radiological examination of breast- Primary Other (abnormal) findings on radiological examination of breast documented in this encounter [facility] note* Diagnosis Dense breasts Inconclusive mammogram Family history of breast cancer Family history of malignant neoplasm of breast documented in this encounter [facility] note* Diagnosis Family history of breast cancer- Primary Family history of malignant neoplasm of breast Encounter for screening mammogram for breast cancer Breast pain Mastodynia Family history of pancreatic cancer Family history of malignant neoplasm of gastrointestinal tract Rheumatoid arthritis, involving unspecified site, unspecified whether rheumatoid factor present (HCC) documented in this encounter [facility] note* Diagnosis Mammary duct ectasia of left breast documented in this encounter [facility] note* Diagnosis Encounter for gynecological examination (general) (routine) without abnormal findings- Primary documented in this encounter [facility] for referral (narrative)* Diagnostic Procedure Only (Routine) - Pending Review Specialty Diagnoses / Procedures Referred By Shady taylor Referred To Contact [facility] Diagnoses Encounter for screening mammogram for malignant neoplasm of breast Procedures CONSTANCE SCREENING W CARLIN SCREENING DIGITAL BREAST TOMOSYNTHESIS BI SCREENING MAMMOGRAPHY BI 2-VIEW BREAST INC CAD Jade Benjamin APRN.CNP [address] [place] [place] [address] [facility] [address] [place] [address] Referral ID Status Reason Start Date Expiration Date Visits Requested Visits Authorized [id number] Pending Review Auto-Generat ed Referral 11/15/2021 12/15/2022 1 1 [facility] for referral (narrative)* Diagnostic Procedure Only (Routine) - Pending Review Specialty Diagnoses / Procedures Referred By Shady taylor Referred To Contact [facility] Diagnoses Breast pain in female Procedures US BREAST LTD LT US BREAST UNI REAL TIME WITH IMAGE LIMITED Jade Benjamin APRN.CNP [address] [place] [address] [facility] [address] [place] [address] Referral ID Status Reason Start Date Expiration Date Visits Requested Visits Authorized [id number] Pending Review Auto-Generat ed Referral 05/16/2022 06/15/2023 1 1 * Diagnostic Procedure Only (Routine) - Pending Review Specialty Diagnoses / Procedures Referred By Contac t Referred To Contact [facility] Diagnoses Breast pain in female Procedures CONSTANCE DIAGNOSTIC LT DIAGNOSTIC MAMMOGRAPHY COMPUTER-AIDED DETCJ UNI Jade Benjamin APRN.ROD PLACER [address] [place] [address] [facility] [address] [place] [address] Referral ID Status Reason Start Date Expiration Date Visits Requested Visits Authorized [id number] Pending Review Auto-Generat ed Referral 05/16/2022 06/15/2023 1 1 [facility] Diagnostic Procedure Only (Routine) - Pending Review Specialty Diagnoses / Procedures Referred By Contac t Referred To Contact [facility] Diagnoses Abnormal finding on radiological examination of breast Procedures US BREAST LTD LT US BREAST UNI REAL TIME WITH IMAGE LIMITED Lacy Negron MD [address] [place] [address] [facility] [address] [place] [address] Referral ID Status Reason Start Date Expiration Date Visits Requested Visits Authorized [id number] Pending Review Auto-Generat ed Referral 05/28/2022 06/27/2023 1 1 * Diagnostic Procedure Only (Routine) - Pending Review Specialty Diagnoses / Procedures Referred By Contac t Referred To Contact [facility] Diagnoses Abnormal finding on radiological examination of breast Procedures CONSTANCE DIAGNOSTIC LT DIAGNOSTIC MAMMOGRAPHY [facility]PUT[facility] Lacy Negron MD [address] [place] [address] [facility] [address] [place] [address] Referral ID Status Reason Start Date Expiration Date Visits Requested Visits Authorized [id number] Pending Review Auto-Generat ed Referral 05/28/2022 06/27/2023 1 1 [facility] for referral (narrative)* Consultation (Routine) - Pending Review Specialty Diagnoses / Procedures Referred By Shady taylor Referred To Contact Rheumatology Diagnoses Rheumatoid arthritis, involving unspecified site, unspecified whether rheumatoid factor present (HCC) Procedures AL OFFICE/OUTPATIENT [facility] MDM 60-74 MINUTES Reny Markham APRN - CNP [address] [place] [address] [facility] Rheum [address] [place] [address] Referral ID Status Reason Start Date Expiration Date Visits Requested Visits Authorized [id number] Pending Review Specialty Services Required 12/06/2022 12/06/2023 1 1 [facility] Summary Purpose Family History No Family History Records FoundNo Family History Records FoundNo Family History Records FoundNo Family History Records Found Advance Directives No Advanced Directives Records FoundDocuments on File Type Date Recorded Patient Compound Filler Expl anation Advance Directive(s) 11/09/2018 7:33 AM Documents on File Type Date Recorded Patient Compound Filler Expl anation Advance Directive(s) 11/09/2018 7:33 AM Reason for Referral Specialty Diagnoses / Procedures Referred By Shady taylor Referred To Contact Radiology Diagnoses Dense breasts Family history of breast cancer Procedures BI MR fast breast bilateral w/wo contrast Reny Markham APRN - CNP [address] [place] [address] Referral ID Status Reason Start Date Expiration Date Visits Re quested Visits Authorized [id number] Closed 06/07/2022 12/04/2022 1 1 Additional Source Comments INFORMATION SOURCE (unrecogn ized section and content) DATE CREATED AUTHOR AUTHOR'S ORGANIZ ATION 11/01/2021 [facility] DATE CREATED AUTHOR AUTHOR'S ORGANIZ ATION 12/07/2022 [facility] DATE CREATED AUTHOR AUTHOR'S ORGANIZ ATION 02/23/2023 [facility] Source Comments (unrecognize d section and content) In the event this informatio n is protected by the Federal Confidentiality of Alcohol and Drug Abuse Patient Records regulations: The Federal rules restrict any use of the information to criminally investigate or prosecute any alcohol or drug abuse patient[facility] event this information is protected by the Federal Confidentiality of Alcohol and Drug Abuse Patient Records regulations: The Federal rules restrict any use of the information to criminally investigate or prosecute any alcohol or drug abuse patient.[facility] the event this information is protected by the Federal Confidentiality of Alcohol and Drug Abuse Patient Records regulations: The Federal rules restrict any use of the information to criminally investigate or prosecute any alcohol or drug abuse patient.[facility] the event this information is protected by the Federal Confidentiality of Alcohol and Drug Abuse Patient Records regulations: The Federal rules restrict any use of the information to criminally investigate or prosecute any alcohol or drug abuse patient.[facility] the event this information is protected by the Federal Confidentiality of Alcohol and Drug Abuse Patient Records regulations: The Federal rules restrict any use of the information to criminally investigate or prosecute any alcohol or drug abuse patient.[facility] the event this information is protected by the Federal Confidentiality of Alcohol and Drug Abuse Patient Records regulations: The Federal rules restrict any use of the information to criminally investigate or prosecute any alcohol or drug abuse patient.[facility] the event this information is protected by the Federal Confidentiality of Alcohol and Drug Abuse Patient Records regulations: The Federal rules restrict any use of the information to criminally investigate or prosecute any alcohol or drug abuse patient.[facility]In the event this information is protected by the Federal Confidentiality of Alcohol and Drug Abuse Patient Records regulations: The Federal rules restrict any use of the information to criminally investigate or prosecute any alcohol or drug abuse patient.[facility] DaytonIn the event this information is protected by the Federal Confidentiality of Alcohol and Drug Abuse Patient Records regulations: The Federal rules restrict any use of the information to criminally investigate or prosecute any alcohol or drug abuse patient.[facility] Reason for Visit (unrecogniz ed section and content) Reason Onset Date Comments Refill Request 01/31/2022 Reason Comments Breast Problem Reason Comments Mammogram Abnormality Reason Comments Mammogram Abnormality Specialty Diagnoses / Procedures Referred By Contac t Referred To Contact Radiology Diagnoses Dense breasts Family history of breast cancer Procedures BI MR fast breast bilateral w/wo contrast Reny Markham, NUTRITION COORDINATOR - ROD PLACER [address] [place] [address] Referral ID Status Reason Start Date Expiration Date Visits Re quested Visits Authorized [id number] Closed 06/07/2022 12/04/2022 1 1 Reason Comments 6 Month Follow-up Left breast pain vandana t comes and goes, right breast pain that is less frequent Reason Onset Date Comments Refill Request Refill Request 01/15/2023 Reason Comments Yearly Exam Care Teams (unrecognized sec tion and content) Assistant Strength Coach Relationship Specialty Start Date End Date Héctor Yepez MD [address], [place] [id number] PCP - General 02/20/04 Assistant Strength Coach Relationship Specialty Start Date End Date Héctor Yepez MD [address] [place] [address] PCP - General 02/20/04 Assistant Strength Coach Relationship Specialty Start Date End Date Héctor Yepez MD [address] [place] [address] PCP - General 02/20/04 Assistant Strength Coach Relationship Specialty Start Date End Date Héctor Yepez MD [address] [place] [address] PCP - General 02/20/04 Assistant Strength Coach Relationship Specialty Start Date End Date éHctor Yepez MD [address] [place] [address] PCP - General 02/20/04 Assistant Strength Coach Relationship Specialty Start Date End Date Shaunna Snow MD [address] [place] [address] PCP - General Pediatrics 06/05/22 Assistant Strength Coach Relationship Specialty Start Date End Date Shaunna Snow MD [address] [place] [address] PCP - General Pediatrics 06/05/22 Assistant Strength Coach Relationship Specialty Start Date End Date Shaunna Snow MD [address] [place] [address] PCP - General Pediatrics 06/05/22 Assistant Strength Coach Relationship Specialty Start Date End Date Héctor Yepez MD [address] [place] [address] PCP - General 02/20/04 Assistant Strength Coach Relationship Specialty Start Date End Date Héctor Yepez MD [address] [place] [address] PCP - General 02/20/04 FOR RECORDS PERTAINING TO PATIENTS WHO ARE OR HAVE BEEN ENROLLED IN A CHEMICAL DEPENDENCY/SUBSTANCEABUSE PROGRAM, SOME INFORMATION MAY BE OMITTED. This clinical summary was aggregated from multiple sources. Caution should be exercised in using it in the provision of clinical care. This summary normalizes information from multiple sources, and as a consequence, information in this document may materially change the coding, format and clinical context of patient data. In addition, data may be omitted in some cases. CLINICAL DECISIONS SHOULD BE BASED ON THE PRIMARY CLINICAL RECORDS. [facility]. provides no warranty or guarantee of the accuracy or completeness of information in this document.
[2023-07-05 10:32] LABS: Anion Gap 4 (5-15); BUN 10 mg/dL (7-18); BUN/Creat Ratio 18.7 RATIO (10-20); Calcium,Total 8.7 mg/dL (8.5-10.1); Chloride 101 mmol/L (98-107); Creatinine, Serum 0.54 mg/dL (0.55-1.02); EST Glomerular Filtration Rate 124 mL/min (>60); Est Glom Filt Rate - Afr Amer 150 mL/min (>60); Glucose 102 mg/dL (74-106); Sodium Level 133 mmol/L (136-145)
== END | disposition home or self-care (01) ==
LOC: LAB 09:49
PROVIDERS: PCP Family Medicine; Referring Provider Family Medicine; Visit Provider Family Medicine
DX: E87.1 Hypo-osmolality and hyponatremia (principal)
CPT/HCPCS: 36415; 80048

== ENCOUNTER → 2023-10-20 | Outpatient (CLI) | payer OTHER, SELFPAY ==
[2023-10-20 12:21] LABS: Hematocrit 40.1 % (37-47); Hemoglobin 13.6 g/dL (12.0-15.0); Mean Corp Hgb Conc 33.9 g/dL (32-36); Mean Corpuscular Hgb 33.3 pg (27.0-32.0); Mean Corpuscular Volume 98.3 fL (81-99); Mean Platelet Vol. 9.2 fl (6.2-12.0); POSITIVE DIFFERENTIAL YES; POSITIVE MORPHOLOGY YES; Platelet Count 299 K/mm3 (150-450); RBC Distribution Width CV 12.2 % (11.6-14.6); RBC Distribution Width SD 44.2 fl (35.1-43.9); Red Blood Count 4.08 M/mm3 (4.2-5.4); White Blood Count 8.2 K/mm3 (4.4-11.0)
[2023-10-20 13:07] LABS: ALB/GLOB Ratio 1.1 RATIO (0.9-2.4); AST(SGOT) 28 U/L (15-37); Alanine Aminotransfer ALT/SGPT 32 U/L (13-56); Albumin, Serum 3.8 g/dL (3.2-5.0); Alkaline Phosphatase 78 U/L (45-117); Anion Gap 6 (5-15); BUN 12 mg/dL (7-18); BUN/Creat Ratio 26.1 RATIO (10-20); Chloride 99 mmol/L (98-107); Creatinine, Serum 0.46 mg/dL (0.55-1.02); EST Glomerular Filtration Rate 147 mL/min (>60); Est Glom Filt Rate - Afr Amer 178 mL/min (>60); Globulin 3.5 g/dL (2.2-4.2); Glucose 86 mg/dL (74-106); Potassium 3.9 mmol/L (3.5-5.1); Protein, Total 7.3 g/dL (6.4-8.2); Sodium Level 132 mmol/L (136-145)
[2023-10-20 13:33] LABS: Differential Indicated MANUAL DIFF
[2023-10-20 14:53] LABS: Eosinophil 1 % (0-5); Lymphocyte 27 % (19-41); Monocyte 2 % (0-10); Neutrophil-Segmented 70 % (47-70); Platelet Estimate ADEQUATE (ADEQ); Total Cells Counted 100 (MANUAL DIFF)
[2023-10-20 14:54] LABS: Absolute Neutrophil Count 5.7 X10^3/uL (2.0-7.7); Red Cell Morphology NORM C+C NORMAL (NORM C&C)
== END | disposition home or self-care (01) ==
LOC: MFPLAB 10:40
PROVIDERS: PCP Internal Medicine Rheumatology; Visit Provider Internal Medicine Rheumatology
DX: M06.4 Inflammatory polyarthropathy (principal); Z79.899 Other long term (current) drug therapy; M79.7 Fibromyalgia
CPT/HCPCS: 36415; 80053; 85025

== ENCOUNTER 2024-02-23 08:52 | Day surgery (SDC) | payer OTHER, SELFPAY ==
[2024-02-23] VITALS (9 sets, daily range): BP systolic 89–117; BP diastolic 50–64; PULSE 55–68; RESP 16; TEMP 36.1–36.4; O2SAT 97–100; BMI 28.1
--- NOTE | 2024-02-23 09:07 | PCM.HP.STD ---
HPI - General General Date of Admission: 02/23/24 Date of Service: 02/23/24 Chief Complaint: Surveillance colonoscopy HPI Narrative REYMUNDO SANCHEZ, is a 59 F who presents today for surveillance colonoscopy. She has a past medical history of epilepsy, anxiety, depression, hyperlipidemia. She had a colonoscopy several years ago at [facility] and had a normal colonoscopy during that time. Her first colonoscopy did have adenomatous polyps. She is not having any abdominal pain, cramping, chest aching or shortness of breath. [facility] Medical History (Updated 02/19/24 @ 13:52 by Jase Barragan) Wears partial dentures Wears glasses Arthritis Hx of colonic polyps Epilepsy Generalized anxiety disorder Degenerative disc disease, cervical Allergic rhinitis Depression Lipidemia Home Medications ?Medication ?Instructions ?Recorded ?Last Taken ?Type atorvastatin 20 mg tablet 20 mg PO QHS 03/14/20 Unknown History citalopram 40 mg tablet 40 mg PO DAILY 03/14/20 Unknown History hydroxyzine HCl 25 mg tablet 25 mg PO DAILY PRN Anxiety 03/14/20 Unknown History aripiprazole 5 mg tablet (Abilify) 5 mg PO QDAY 01/05/24 Unknown History carbamazepine 200 mg tablet 200 mg PO TID 01/05/24 Unknown History gabapentin 100 mg capsule 100 mg PO QHS 01/05/24 Unknown History lorazepam 0.5 mg tablet (Ativan) 0.5 mg PO BID PRN anxiety 01/05/24 Unknown History propranolol 20 mg tablet 20 mg PO BID 01/05/24 Unknown History trazodone 50 mg tablet 100 mg PO QHS 01/05/24 Unknown History Allergy/AdvReac Type Severity Reaction Status Date / Time amoxicillin (From Augmentin) AdvReac Nausea/Vom/ Verified 02/19/24 13:43 Diarrhea clavulanic acid (From AdvReac Nausea/Vom/ Verified 02/19/24 13:43 Augmentin) Diarrhea Family History (Updated 01/05/24 @ 09:24 by Halle Perea) Grandmother Melanoma Mother Melanoma Breast cancer Colon polyps Grandfather Colon cancer, Onset Age: 48 at 48yrs Other No pertinent family history Surgical History Hx of colonoscopy H/O: hysterectomy Hx of cholecystectomy Social History (Updated 01/05/24 @ 09:27 by Halle Perea) household members: none current occupational status: employed current occupation: [employer] Smoking Status: Former smoker quit date: 03/28/20 pack-years: 20 substance use type: does not use ROS Review of Systems ROS Unobtainable: other Constitutional Constitutional: Denies fatigue, fever(s), poor appetite, weight gain or weight loss ENT HEENT: Denies mouth lesions Cardiovascular Cardiovascular: Denies abdominal bloating, abdominal edema or abdominal pain Respiratory/Chest Respiratory/Chest: Denies change in mental status, change in phlegm color, chest congestion or chest tightness Gastrointestinal Gastrointestinal: Denies belching, bloating, change in bowel habits, change in stool character, chewing difficulty, coffee ground emesis, constipation, cramping, diarrhea, dyspepsia, dysphagia, early satiety, excessive flatus, fecal incontinence, heartburn, hematemesis, hematochezia, hemorrhoids, loose stools, melena, nausea, odynophagia, rectal bleeding, tenesmus, vomiting or weight changes Genitourinary Genitourinary: Denies abdominal discomfort, burning urination or itching Musculoskeletal Musculoskeletal: Reports as per HPI; Denies muscle weakness or myalgias Integumentary Integumentary: Denies jaundice Neurologic Neurologic: Denies lack of coordination or weakness Psychiatric Psychiatric: Denies confusion, depression, memory loss, mood swings, paranoia or suicidal ideation Endocrine Endocrinology: Denies systems reviewed and no addt'l complaints, except as documented Hematologic/Lymphatic Hematologic/Lymphatic: Denies anemia, easy bleeding, easy bruising or lymphadenopathy Allergic/Immunologic Allergic/Immunologic: Denies systems reviewed and no addt'l complaints, except as documented Physical Exam Const alert General Appearance: cooperative Orientation / Consciousness: oriented to person HEENT hearing grossly normal bilaterally Head and Scalp: normal to inspection Face and Sinus: face symmetric Nose: external nose normal Mouth: oral and palatal mucosa normal Eyes conjunctivae normal General Eye: normal appearance of both eyes Neck full ROM General: normal visual inspection Lymph Lymphatic: no lymphadenopathy noted Chest inspection of chest normal and palpation of chest normal Chest: symmetrical chest wall rise Resp normal respiratory effort Effort and Inspection: able to speak in complete sentences Cardio regular rate GI non-distended Percussion: normal to percussion Rectal Exam: deferred Neuro Speech: speech normal Gait (Neuro): normal gait Assessment & Plan Assessment/Plan (1) Encounter for screening for malignant neoplasm of colon: PLAN: She will undergo surveillance colonoscopy. She was explained alternatives, risk, benefits including not withstanding bleeding, infection, sepsis, perforation, need for emergent surgery . She will have an ASA of 3.
--- NOTE | 2024-02-23 09:27 | PCM.PRE.AN2 ---
ASA Classification* ASA Classification ASA Classification: 2 Assessment & Plan Anesthesia* Anesthesia Assessment Anesthesia Assessment: Discussed sedation and/or anesthesia options, risks, benefits, and alternatives with patient/parents/legal guardian/POA. Questions invited. The patient/parents/legal guardian/POA seems to understand and agrees to proceed with anesthesia plan. Reviewed the physical assessment, medical history, allergy history and patient home medications list prior to surgery/procedure/anesthetic and documented any changes. Performed airway and anesthesia risk assessments. Anesthesia Type Anesthesia Type: MAC Anesthesia Focused Assessment* Temperature: 97 F Pulse Rate: 65 Blood Pressure: 117/64 Respiratory Rate: 16 Pulse Ox: 100 Airway Assessment Mouth opens: >3 cm Mallampati Score: II Focused Labs Anesthesia Preop lab: CBC WBC 8.2 K/mm3 (4.4-11.0) 10/20/23 10:42 RBC 4.08 M/mm3 (4.2-5.4) L 10/20/23 10:42 Hgb 13.6 g/dL (12.0-15.0) 10/20/23 10:42 Hct 40.1 % (37-47) 10/20/23 10:42 Plt Count 299 K/mm3 (150-450) 10/20/23 10:42 CHEMISTRY Potassium 3.9 mmol/L (3.5-5.1) 10/20/23 10:42 Sodium 132 mmol/L (136-145) L 10/20/23 10:42 BUN 12 mg/dL (7-18) 10/20/23 10:42 Creatinine 0.46 mg/dL (0.55-1.02) L 10/20/23 10:42 Glucose 86 mg/dL (74-106) 10/20/23 10:42 TSH 1.58 uIU/mL (0.358-3.74) 04/23/22 16:04 COAG Pre-Assessment Diagnosis/Proposed Procedure Planned Operative Procedure(s): COLONOSCOPY Anesthesia History 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 When Was Last Pacemaker Check QUESTION #4 FULL TEXT: You/Your Family Experience fever (hyperthermia) with Anesthesia Last Oral Intake Last Oral intake: Last Oral Intake NPO since 06:00 02/23/24 09:12 Meds taken in AM with sips of Yes 02/23/24 09:12 water? Meds patient instructed to see mar 02/23/24 09:12 take am of surgery PONV PONV - bank operations officer: PONV - bank operations officer Female Yes 02/19/24 13:46 HX of Motion Sickness No 02/19/24 13:46 HX of N/V After Surgery No 02/19/24 13:46 Non-Smoker Yes 02/19/24 13:46 Duration of Surgery greater No 02/19/24 13:46 than 60 minutes Number of Risk Factors 2 02/19/24 13:46 PONV Score Moderate Risk 02/19/24 13:46 Height & Weight Height & Weight: Anesthesia: Height & Weight Height 5 ft 1 in 02/23/24 09:12 Weight: 67.585 kg 02/23/24 09:12 Body Mass Index (BMI) 28.1 02/23/24 09:12 Respiratory Assessment Respiratory Assessment - bank operations officer: Respiratory Tract Infection Hx - bank operations officer Hx Respiratory Tract Infection No 02/19/24 13:46 STOP Sleep Apnea STOP Sleep Apnea - bank operations officer: STOP Sleep Apnea - bank operations officer Hx Hypertension Yes: CONTROLLED WITH MEDS 02/19/24 13:46 Hx Sleep Apnea No 02/19/24 13:46 CPAP BIPAP Do you snore loudly (louder No 02/19/24 13:46 than talking or can be heard Do you often feel tired/ No 02/19/24 13:46 fatigued/ sleepy during daytime? Has anyone observed you stop No 02/19/24 13:46 breathing during sleep? STOP Results Negative 02/19/24 13:46 QUESTION #5 FULL TEXT : Do you snore loudly (louder than talking or can be heard through closed doors)? Tobacco Use History Tobacco Use History - bank operations officer: Tobacco Use History - bank operations officer Tobacco Use Smoking Status Former smoker 02/19/24 13:46 Hx Tobacco Use Yes 02/19/24 13:46 Years Smoking Packs Smoked per Day Smoking Cessation Date was Yes - quit smoking within 15 02/19/24 13:46 within the last 15 years years Hx Smoking Cessation Date Hx Smoking Cessation Counseling Hematologic Medial History Hematologic Hx - bank operations officer: Hematologic Medical Hx - shank sorter Hx of Blood Transfusion No 02/19/24 13:46 Hx of Transfusion in last 3 No 02/19/24 13:46 Months Date of Last Transfusion (if within last 3 months) Ever experience any problems No 02/19/24 13:46 with transfusion(s)? Specify any problems Hx of Preganancy in last 3 No 02/19/24 13:46 Months Nurse Filling Out Transfusion [email or web address] 02/19/24 13:46 & Questions: Date: 02/19/24 02/19/24 13:46 Time: 13:49 02/19/24 13:46 Patient unable to answer at this time (ie. confused, unrespo /Reproduction History /Reproductive History - bank operations officer: /Reproductive Hx- bank operations officer Hx Now Gestational Age (in weeks): EDC: Hx Hx Para Hx Section SAB PFSH Medical History Wears partial dentures Wears glasses Arthritis Hx of colonic polyps Epilepsy Generalized anxiety disorder Degenerative disc disease, cervical Allergic rhinitis Depression Lipidemia Home Medications ?Medication ?Instructions ?Recorded ?Last Taken ?Type atorvastatin 20 mg tablet 20 mg PO QHS 03/14/20 Unknown History citalopram 40 mg tablet 40 mg PO DAILY 03/14/20 Unknown History hydroxyzine HCl 25 mg tablet 25 mg PO DAILY PRN Anxiety 03/14/20 Unknown History aripiprazole 5 mg tablet (Abilify) 5 mg PO QDAY 01/05/24 Unknown History carbamazepine 200 mg tablet 200 mg PO TID 01/05/24 Unknown History gabapentin 100 mg capsule 100 mg PO QHS 01/05/24 Unknown History lorazepam 0.5 mg tablet (Ativan) 0.5 mg PO BID PRN anxiety 01/05/24 02/23/24 History propranolol 20 mg tablet 20 mg PO BID 01/05/24 02/23/24 06:00 History trazodone 50 mg tablet 100 mg PO QHS 01/05/24 Unknown History Allergy/AdvReac Type Severity Reaction Status Date / Time amoxicillin (From Augmentin) AdvReac Nausea/Vom/ Verified 02/23/24 09:11 Diarrhea clavulanic acid (From AdvReac Nausea/Vom/ Verified 02/23/24 09:11 Augmentin) Diarrhea Family History Grandmother Melanoma Mother Melanoma Breast cancer Colon polyps Grandfather Colon cancer, Onset Age: 48 at 48yrs Other No pertinent family history Surgical History Hx of colonoscopy H/O: hysterectomy Hx of cholecystectomy Social History household members: none current occupational status: employed current occupation: [employer] Smoking Status: Former smoker quit date: 03/28/20 pack-years: 20 substance use type: does not use Review of Systems (Anesthesia) ROS Narrative System reviewed and no additional complaints, except as documented.
--- NOTE | 2024-02-23 10:00 | COLBX_PTH ---
PATHOLOGY RESULTS PATIENT: REYMUNDO SANCHEZ LOC: EN U#:[id number] AGE/SX: 59/F ROOM: RE02/23/[address]: Dr. Chase Guadarrama DO : 1965 BED: DIS: 02/23/2024 SPEC #: [id number] RECD: 02/23/24 12:05 STATUS: RAVI MENDEZ #: [id number] LAILA: 02/23/24 10:[address]: Chase Guadarrama DEPT: SURGICAL PATHOLOGY RECD BY: Ortega Bonilla ENTERED: 02/23/24 12:47 SP TYPE: COLON BX OTHR DR: MD Dr. Mary Ann Álvarez MD Tissues: COLON BIOPSY Procedures: Surgery Specimen Level IV HEADER OPERATION: Colonoscopy PRE-OP DIAGNOSIS: Encounter for screening for malignant neoplasm of colon TISSUE SUBMITTED: Splenic flexure polyp biopsy MICROSCOPIC DIAGNOSIS Splenic flexure polyp, biopsy: Tubular adenoma. 02/24/2024 MICROSCOPIC DESCRIPTION Slides are reviewed. GROSS DESCRIPTION Received in fixative is one container labeled with the patient's name and designated Splenic flexure polyp biopsy. The specimen consists of multiple irregular fragments of light crump soft tissue that in aggregate measure 0.8 x 0.6 x 0.1 cm. The specimen is totally submitted in one cassette. 02/23/2024 TC:1 CPT:45934
--- NOTE | 2024-02-23 10:22 | OP.COLON_ITS ---
Patient Name: Liliam Alanis Procedure Date: 02/23/2024 9:52 AM Date of : 1965 Age: 59 Procedure: Colonoscopy Indications: Screening for colorectal malignant neoplasm Providers: Chase Guadarrama DO Referring MD: Nathanael Frazier Md Medicines: Monitored Anesthesia Care Patient Profile: This is a 59 year old female. Refer to note in patient chart for documentation of history and physical. Last Colonoscopy: 5 years ago. Complications: No immediate complications. Procedure: Pre-Anesthesia Assessment: - Prior to the procedure, a History and Physical was performed, and patient medications and allergies were reviewed. The patient is competent. The risks and benefits of the procedure and the sedation options and risks were discussed with the patient. All questions were answered and informed consent was obtained. Patient identification and proposed procedure were verified by the physician in the pre-procedure area. Mental Status Examination: alert and oriented. Airway Examination: normal oropharyngeal airway and neck mobility. Respiratory Examination: clear to auscultation. CV Examination: normal. Prophylactic Antibiotics: The patient does not require prophylactic antibiotics. Prior Anticoagulants: The patient has taken no anticoagulant or antiplatelet agents. ASA Grade Assessment: II - A patient with mild systemic disease. After reviewing the risks and benefits, the patient was deemed in satisfactory condition to undergo the procedure. The anesthesia plan was to use monitored anesthesia care (MAC). Immediately prior to administration of medications, the patient was re-assessed for adequacy to receive sedatives. The heart rate, respiratory rate, oxygen saturations, blood pressure, adequacy of pulmonary ventilation, and response to care were monitored throughout the procedure. The physical status of the patient was re-assessed after the procedure. After I obtained informed consent, the scope was passed under direct vision. Throughout the procedure, the patient's blood pressure, pulse, and oxygen saturations were monitored continuously. The Colonoscope was introduced through the anus and advanced to the cecum, identified by appendiceal orifice and ileocecal valve. The colonoscopy was performed without difficulty. The patient tolerated the procedure well. The quality of the bowel preparation was adequate. Scope In: 10:01:53 AM Scope Withdrawal Time 0 hours 10 minutes 56 seconds Scope Out: 10:16:59 AM Total Procedure Duration Time 0 hours 15 minutes 6 seconds Findings: The perianal and digital rectal examinations were normal. An 8 mm polyp was found in the splenic flexure. The polyp was sessile. The polyp was removed with a cold biopsy forceps. Resection and retrieval were complete. Verification of patient identification for the specimen was done. Estimated blood loss was minimal. A few small-mouthed diverticula were found in the sigmoid colon. Impression: - One 8 mm polyp at the splenic flexure, removed with a cold biopsy forceps. Resected and retrieved. - Diverticulosis in the sigmoid colon. Recommendation: - Discharge patient to home. - Resume previous diet. - Continue present medications. - Await pathology results. - Repeat colonoscopy in 5 years for surveillance. Procedure Code(s): --- Professional --- 27093, Colonoscopy, flexible; with biopsy, single or multiple CPT copyright 2021 [employer]. All rights reserved. The codes documented in this report are preliminary and upon sizer hand review may be revised to meet current compliance requirements. Chase Guadarrama DO 02/23/2024 10:22:24 AM This report has been signed electronically. Number of Addenda: 0 Note Initiated On: 02/23/2024 9:52 AM
--- NOTE | 2024-02-23 10:22 | OP.CCLET_ITS ---
02/23/2024 Nathanael Frazier Md Re : Colonoscopy procedure for Liliam Diez Karin This procedure was performed on Friday, February 23, 2024. My impressions and recommendations are as follows: Impressions : - One 8 mm polyp at the splenic flexure, removed with a cold biopsy forceps. Resected and retrieved. - Diverticulosis in the sigmoid colon. Recommendations : - Discharge patient to home. - Resume previous diet. - Continue present medications. - Await pathology results. - Repeat colonoscopy in 5 years for surveillance. My findings are described in the full procedure note, which is enclosed. If I can be of further assistance, please feel free to contact me at . Sincerely, Chase Guadarrama, 02/23/2024 10:22:24 AM This report has been signed electronically.
--- NOTE | 2024-02-23 10:28 | PCM.POST.ANE ---
Anesthesia: Postop Eval I Current Vital Signs Temperature: 97.1 F Pulse Rate: 68 Blood Pressure: 92/58 Respiratory Rate: 16 Pulse Ox: 100 Oxygen Delivery Method: Room Air Assessment Airway patent: Yes Spontaneous unlabored respirations: Yes Mental status: Awake and Calm nausea: No Vomiting: No Anesthesia Complication: No Fluid Hydration Crystalloid volume administer (ml): 40 Total IV fluid infused: 40 Progress Note Anesthesia document: Postop Eval 1 completed: Yes
--- NOTE | 2024-02-23 15:48 | PCM.POSTANE2 ---
Anesthesia Postop Eval I Sum Postop Eval Completion status Anesthesia document: Postop Eval 1 completed: Yes Anesthesia Postop Eval I Summary Anesthesia Postop Eval I Summary: Anesthesia Postop Eval I: Assessment Summary Airway patent Yes 02/23/24 10:29 [email or web address] Spontaneous unlabored Yes 02/23/24 10:29 [email or web address] respirations Mental status Awake,Calm 02/23/24 10:29 [email or web address] nausea No 02/23/24 10:29 [email or web address] Vomiting No 02/23/24 10:29 [email or web address] Anesthesia Postop Eval I: Fluid Summary Crystalloid volume administer 40 02/23/24 10:29 [email or web address] (ml) Colloids volume administered ( ml) Blood Product volume administered (ml) Total IV fluid infused 40 02/23/24 10:29 [email or web address] Anesthesia Postop Eval I: Summary Notes Anesthesia Complication No 02/23/24 10:29 [email or web address] Anesthesia Complication Comment: Post-operative progress note Anesthesia: Postop Eval II Evaluation Mental status: Awake and Calm Pain Level: 0 nausea: No Vomiting: No Complications Anesthesia Complication: No
== END 2024-02-23 11:24 | disposition home or self-care (01) ==
LOC: EN 08:55 → AC 08:56
PROVIDERS: PCP Family Medicine; Referring Provider Family Medicine; Visit Provider Internal Medicine Gastroenterology
PROC: 0DJD8ZZ Inspection of Lower Intestinal Tract, Via Natural or Artificial Opening Endoscopic (ICD-10-PCS; CPT 45378; principal; 2024-02-23 09:55)
DX: Z12.11 Encounter for screening for malignant neoplasm of colon (principal); G40.909 Epilepsy, unspecified, not intractable, without status epilepticus; Z90.710 Acquired absence of both cervix and uterus; K57.30 Diverticulosis of large intestine without perforation or abscess without bleeding; E78.5 Hyperlipidemia, unspecified; Z87.891 Personal history of nicotine dependence; F41.9 Anxiety disorder, unspecified; Z79.899 Other long term (current) drug therapy; F32.A Depression, unspecified; Z83.719 Family history of colon polyps, unspecified; Z86.0100 Personal history of colon polyps, unspecified; Z90.49 Acquired absence of other specified parts of digestive tract; K63.5 Polyp of colon
CPT/HCPCS: 45380; 88305; A4216; J2405

== ENCOUNTER → 2024-04-10 | Outpatient (CLI) | payer OTHER, SELFPAY ==
[2024-04-10 09:06] LABS: Absolute Lymphocyte Count 1.63 X10^3/uL (0.83-4.51); Absolute Neutrophil Count 3.5 X10^3/uL (2.0-7.7); Basophil# 0.04 X10^3/uL; Basophil% 0.7 % (0-1); Eosinophil# 0.05 X10^3/uL; Eosinophils% 0.9 % (0-5); Hematocrit 36.5 % (37-47); Hemoglobin 12.8 g/dL (12.0-15.0); Lymphocyte # 1.63 X10^3/ul (0.83-4.51); Lymphocyte % 28.8 % (19-41); Mean Corp Hgb Conc 35.1 g/dL (32-36); Mean Corpuscular Hgb 32.7 pg (27.0-32.0); Mean Corpuscular Volume 93.4 fL (81-99); Mean Platelet Vol. 8.8 fl (6.2-12.0); Monocyte% 7.1 % (0-10); NRBC Flagged by Analyzer 0 % (0-5); Neutrophil # 3.52 X10^3/uL (2.7-7.7); Neutrophil % 62.1 % (47-70); Platelet Count 296 K/mm3 (150-450); RBC Distribution Width CV 11.9 % (11.6-14.6); RBC Distribution Width SD 39.9 fl (35.1-43.9); Red Blood Count 3.91 M/mm3 (4.2-5.4); White Blood Count 5.7 K/mm3 (4.4-11.0)
[2024-04-10 09:48] LABS: ALB/GLOB Ratio 1.1 RATIO (0.9-2.4); AST(SGOT) 22 U/L (15-37); Alanine Aminotransfer ALT/SGPT 33 U/L (13-56); Albumin, Serum 3.7 g/dL (3.2-5.0); Alkaline Phosphatase 90 U/L (45-117); Anion Gap 6 (5-15); BUN 7 mg/dL (7-18); BUN/Creat Ratio 16.3 RATIO (10-20); Calcium,Total 8.9 mg/dL (8.5-10.1); Chloride 102 mmol/L (98-107); Creatinine, Serum 0.43 mg/dL (0.55-1.02); EST Glomerular Filtration Rate 160 mL/min (>60); Est Glom Filt Rate - Afr Amer 193 mL/min (>60); Globulin 3.3 g/dL (2.2-4.2); Glucose 105 mg/dL (74-106); Potassium 4.1 mmol/L (3.5-5.1); Sodium Level 133 mmol/L (136-145)
== END | disposition home or self-care (01) ==
LOC: LAB 08:40
PROVIDERS: PCP Family Medicine; Referring Provider Internal Medicine Rheumatology; Visit Provider Internal Medicine Rheumatology
DX: M06.4 Inflammatory polyarthropathy (principal); Z79.899 Other long term (current) drug therapy; M79.7 Fibromyalgia
CPT/HCPCS: 36415; 80053; 85025

== ENCOUNTER → 2024-10-01 | Outpatient (CLI) | payer BC, SELFPAY ==
[2024-10-01 17:47] LABS: Absolute Lymphocyte Count 2.72 X10^3/uL (0.83-4.51); Basophil# 0.06 X10^3/uL; Basophil% 0.7 % (0-1); Eosinophil# 0.08 X10^3/uL; Eosinophils% 0.9 % (0-5); Hematocrit 36.4 % (37-47); Hemoglobin 12.7 g/dL (12.0-15.0); Lymphocyte # 2.72 X10^3/ul (0.83-4.51); Lymphocyte % 32.2 % (19-41); Mean Corp Hgb Conc 34.9 g/dL (32-36); Mean Corpuscular Hgb 32.9 pg (27.0-32.0); Mean Corpuscular Volume 94.3 fL (81-99); Mean Platelet Vol. 9.8 fl (6.2-12.0); Monocyte# 0.54 X10^3/uL; Monocyte% 6.4 % (0-10); NRBC Flagged by Analyzer 0 % (0-5); Neutrophil # 5.01 X10^3/uL (2.7-7.7); Neutrophil % 59.4 % (47-70); Platelet Count 296 K/mm3 (150-450); RBC Distribution Width CV 12.3 % (11.6-14.6); RBC Distribution Width SD 42.7 fl (35.1-43.9); Red Blood Count 3.86 M/mm3 (4.2-5.4); White Blood Count 8.4 K/mm3 (4.4-11.0)
[2024-10-01 18:16] LABS: ALB/GLOB Ratio 1.6 RATIO (0.9-2.4); AST(SGOT) 27 U/L (<=31); Alanine Aminotransfer ALT/SGPT 24 U/L (<=34); Albumin, Serum 4.2 g/dL (3.4-4.8); Alkaline Phosphatase 86 U/L (35-104); Anion Gap 12 (5-15); BUN 9 mg/dL (4-19); BUN/Creat Ratio 16.6 RATIO (10-20); Carbon Dioxide 22.6 mmol/L (21.0-32.0); Chloride 97 mmol/L (98-108); Creatinine, Serum 0.52 mg/dL (0.70-1.20); EST Glomerular Filtration Rate 106 (>60); Globulin 2.6 g/dL (2.2-4.2); Glucose 94 mg/dL (70-99); Protein, Total 6.8 g/dL (5.9-8.4); Sodium Level 132 mmol/L (133-145); Total Bilirubin < 0.15 mg/dL (0.00-1.30)
== END | disposition home or self-care (01) ==
LOC: MFPLAB 15:16
PROVIDERS: PCP Family Medicine; Visit Provider Internal Medicine Rheumatology
DX: M06.4 Inflammatory polyarthropathy (principal); Z79.899 Other long term (current) drug therapy; M79.7 Fibromyalgia
CPT/HCPCS: 36415; 80053; 85025

== ENCOUNTER → 2024-11-06 | Outpatient (CLI) | payer BC, SELFPAY ==
--- OUTSIDE RECORDS SUMMARY | 2024-11-06 07:06 | XMS RPT_ITS | CCD ---
Author Organization [facility] Care Team Providers Care Retail Pharmacy Manager Name Role Phone CIRO ROONEY DO Admitting Unavailable DIDCIRO PALACIO DO Primary Care Unavailable DIDCIRO PALACIO DO Attending Unavailable HORNMANJU DPM Admitting Unavailable HORN, MANJU DPM Primary Care Unavailable HORN, MANJU DPM Attending Unavailable HORN, MANJU DPM Primary Care Unavailable HORN, MANJU DPM Attending Unavailable HORN, MANJU DPM Admitting Unavailable Héctor Yepez MD Primary Care Provider Héctor Yepez MD Primary Care Provider Héctor Yepez MD Primary Care Provider DO Carmen Snow Primary Care Provider [phone] Dr. Andrei Lerma Attending Provider Sourav RECORDIST CHIEF, RECORDIST CHIEF-C Jade Referring Provider Shaunna Snow MD Primary Care Provider Héctor Yepez MD Primary Care Provider Héctor Yepez MD Primary Care Provider RENY MARKHAM Attending Unavailable RENY MARKHAM Referring Unavailable JAMIL SHAUNNA Primary Care Unavailable ANIRUDH AVALOS Referring Unavailable RENY MARKHAM Attending Unavailable JAMIL SHAUNNA Primary Care Unavailable LAURA ALFONSO Referring Unavailable JAMIL, SHAUNNA Primary Care Unavailable HÉCTOR YEPEZ Primary Care Unavailable JADE FERGUSON Attending Unavailable HÉCTOR YEPEZ Primary Care Unavailable VERNELL VANEGAS Attending Unavailable Shaunna Snow MD Primary Care Provider Nathanael Frazier MD Primary Care Provider [phone] Nathanael Frazier MD Attending Provider [phone] Nathanael Frazier MD Referring Provider [phone] Karin STEPHENSON, Chalrox Other Provider Brittany STEPHENSON, Dr. Heller Attending Provider [phone] Dr. Mary Ann Vazquez MD Attending Provider Vellancaitlyn, Mary Ann Referring Unavailable Karin, Chalon Primary Care Unavailable Vellanki, Mary Ann Attending Unavailable Karin, Chalon Referring Unavailable Karin, Chalon Primary Care Unavailable Karin, Chalon Attending Unavailable Karin, Chalon Primary Care Unavailable Vellanki, Mary Ann Attending Unavailable Vellanki, Mary Ann Primary Care Unavailable Halle Perea Attending Unavailable Brittany, Arron Attending Unavailable Karin, Chalon Primary Care Unavailable Karin, Chalon Consulting Unavailable Karin, Chalon Referring Unavailable Karin, Chalon Referring Unavailable Karin, Chalon Primary Care Unavailable Friend, Chase Attending Unavailable Vellanki, Mary Ann Consulting Unavailable Friend, Chase Consulting Unavailable Karin, Chalon Referring Unavailable Friend, Chase Attending Unavailable Vellanki, Mary Ann Consulting Unavailable Karin, Chalon Primary Care Unavailable Vellanki, Mary Ann Attending Unavailable Vellanki, Mary Ann Primary Care Unavailable Taylor STEPHENSON, Dr. Reese Referring Provider Rosa STEPHENSON, Dr. Kasper Attending Provider Allergies Allergy Classification Reported Allergen(s) Allergy Type Date of Onset Reaction(s) Facility Amoxicillin / Clavulanate (1 source) Amoxicillin / Clavulanate Drug Allergy 8 GI Upset [facility] Work Phone: (20 sources) Amoxicillin Drug Allergy 1 Nausea, Nausea/Vom/Diar [facility] (20 sources) Clavulanate Drug Allergy 1 Nausea, Nausea/Vom/Diar [facility] (20 sources) Amoxicillin / Clavulanate; Translations: [AMOXICILLIN-PO T CLAVULANATE] Drug Allergy 8 GI Upset [facility] Work Phone: (13 sources) Seasonal allergy; Translations: [SEASONAL ALLERGIES] Propensity to adverse reactions 2 Other: See Comments [facility] (10 sources) Other Propensity to adverse reactions 2 Other [facility] (1 source) Amoxicillin Drug Allergy 4 [facility] (1 source) Clavulanate Drug Allergy 4 [facility] Medications Current Medications Medication Drug Class(es) Dates Sig (Normalized) Sig (Original) acyclovir 400 mg oral tablet (16 sources) Herpesvirus Nucleoside Analog DNA Polymerase Inhibitor, Herpes Simplex Virus Nucleoside Analog DNA Polymerase Inhibitor, Herpes Zoster Virus Nucleoside Analog DNA Polymerase Inhibitor Start: 06-15-2021 End: 03-05-2024 take 1 tablet by mouth twice daily acyclovir (ZOVIRAX) 400 mg tablet Take 1 tablet by mouth two times a day. 180 tablet 2 03/05/2024 Active Comment on above: TAKE 1 TABLET TWICE A DAY Take 1 tablet by imtiaz twice daily. [id number] 200 actuat albuterol 0.09 mg/actuat metered dose inhaler (20 sources) beta2-Adrenergic Agonist Start: 05-22-2022 albuterol 108 (90 Base) MCG/ACT inhaler as needed. 05/22/2022 Active Start: 04-11-2020 End: 01-05-2024 Albuterol Sulfate (Proair Hf a) 90 mcg/actuation HFA aerosol inhaler Discontinued 2 NMA INHALATION EVERY 6 HOURS as needed April 11, 2020 1:00am January 05, 2024 9:34am Start: 04-11-2020 take 1 puff(s) by in halation every six hours Albuterol Sulfate (Proair Hfa) 90 mcg/actuation HFA aerosol inhaler Active 2 PUFF INHALATION EVERY 6 HOURS April 11, 2020 1:00am Start: 08-04-2017 take 2 puff(s) by in halation every six hours as needed for wheezing albuterol HFA (PROVENTIL HFA, VENTOLIN HFA) 90 mcg/actuation inhaler Indications: Cough Inhale 2 Puffs as instructed every 6 hours as needed for Wheezing/Shortness of Breath. 1 Inhaler 2 08/04/2017 Active Comment on above: Inhale 2 Puffs as in structed every 6 hours as needed for Wheezing/Shortness of Breath. ARIPiprazole 5 mg oral tablet (7 sources) Atypical Antipsychotic Start: 024 take 1 tablet by mouth once daily Aripiprazole (Abilify) 5 mg tablet Active 5 mg PO daily January 05, 2024 12:00am atorvastatin 20 mg oral tablet (20 sources) HMG-CoA Reductase Inhibitor Start: take 1 tablet by mouth at bedtime Atorvastatin 20 MG tablet Active 20 mg PO AT BEDTIME March 14, 2020 1:00am Comment on above: Take 1 tablet by imtiaz th once daily. carBAMazepine 200 mg oral tablet (20 sources) Mood Stabilizer Start: End: take 1.5 tablets by mouth in the evening Carbamazepine 200 mg tablet Active 200 mg PO .COMPLEX 225 2 November 04, 2024 9:52am 200 mg orally 1 tab in the am and 1.5 tabs in pm; Start: 01-05-2024 End: 11-04-2024 take 1 tablet by mouth three times daily Carbamazepine 200 mg tablet Discontinued 200 mg PO THREE TIMES A DAY January 05, 2024 9:28am November 04, 2024 8:56am Start: 05-21-2022 carBAMazepine (TEGretol) 200 MG tablet 2 times daily. 05/21/2022 Active Start: 02-02-2015 End: 01-05-2024 take 1 tablet by mouth once daily Carbamazepine 200 MG tablet Discontinued 200 mg PO DAILY February 02, 2015 12:00am January 05, 2024 9:34am Start: 02-02-2015 End: 01-05-2024 take 1 tablet by mouth every twelve hours at bedtime Carbamazepine 200 MG tablet extended release 12 hr Discontinued 300 mg PO AT BEDTIME February 02, 2015 12:00am January 05, 2024 9:29am Start: 05-02-2009 carbamazepine( TEGRETOL XR 200 MG 12 HR TAB) Take one tablet twice daily. 0 05/02/2009 Active Comment on above: Take one tablet twic e daily. citalopram 40 mg oral tablet (20 sources) Serotonin Reuptake Inhibitor Start: 03-14-2020 take 1 tablet by mouth once daily Citalopram 40 MG tablet Active 40 mg PO DAILY March 14, 2020 1:00am Start: 05-02-2009 End: 02-20-2023 CITALOPRAM 20 MG TAB Take on e tablet daily. 0 05/02/2009 02/20/2023 Discontinued Comment on above: Take one tablet prema y. gabapentin 100 mg oral capsule (9 sources) Anti-epileptic Agent Start: 2022 take 1 capsule by mouth at bedtime Gabapentin 100 mg capsule Active 100 mg PO AT BEDTIME January 05, 2024 12:00am Comment on above: Take 100 mg by mouth three times a day. hydroxychloroquine sulfate 200 mg oral tablet (12 sources) Antimalarial, Antirheumatic Agent Start: 2022 take 1.5 tablets by mouth once hydrOXYchloroQUINE (PLAQUENIL) 200 mg tablet Take 1.5 tablets by mouth every afternoon. 11/26/2022 Active Comment on above: Take 1.5 tablets by mouth every afternoon. hydrOXYzine hydrochloride 25 mg oral tablet (16 sources) Antihistamine Start: 2019 take 1 tablet by mouth once daily as needed for anxiety Hydroxyzine Hcl 25 MG tablet Active 25 mg PO DAILY as needed for Anxiety March 14, 2020 1:00am Start: 07-01-2019 End: 11-15-2021 take 1 tablet by mouth every twelve hours as needed hydrOXYzine HCl (ATARAX) 25 mg tablet Take 25 mg by mouth twice daily as needed. For Anxiety 0 07/01/2019 11/15/2021 Discontinued (Course of therapy completed) Comment on above: Take 25 mg by mouth twice daily as needed. For Anxiety LORazepam 0.5 mg oral tablet (3 sources) Benzodiazepine Start: 01-05-20 End: 11-05-19 Lorazepam (Ativan) 0.5 mg tablet Active 0.5 mg PO .PRN November 04, 2024 8:55am anxiety multivitamins(DAILY MULTIVITAMIN TAB) (12 sources) Start: 05-02-19 10 multivitamins(DAILY MULTIVITAMIN TAB) Take one tablet daily. 0 05/02/2009 Active Comment on above: Take one tablet prema y. propranolol hydrochloride 20 mg oral tablet (7 sources) beta-Adrenergic Tyler Start: 11-03-19 take 1 tablet by mouth twice daily Propranolol 20 mg tablet Active 20 mg PO TWICE A DAY January 05, 2024 12:00am simvastatin 20 mg oral tablet (1 source) HMG-CoA Reductase Inhibitor Start: 12-11-19 End: 11-16-19 22 simvastatin(ZOCOR 20 MG TAB) Take one(1) tablet daily at bedtime. 0 12/11/2007 11/15/2021 Discontinued Comment on above: Take one(1) tablet d aily at bedtime. traZODone hydrochloride 50 mg oral tablet (20 sources) Serotonin Reuptake Inhibitor Start: 01-05-20 take 2 tablets by mouth at bedtime Trazodone 50 mg tablet Active 100 mg PO AT BEDTIME January 05, 2024 12:00am Start: 04-27-2022 traZODone (Jarek yrel) 50 MG tablet 1 1/2 TABLET 30-60 MIN PRIOR TO SLEEP FOR INSOMNIA 04/27/2022 Active Start: 11-15-2021 take 1.5 tablets by mouth once daily at bedtime traZODone (DESYREL) 50 mg tablet Take 1.5 tablets by mouth daily at bedtime. 11/15/2021 Active Comment on above: Take 1.5 tablets by mouth daily at bedtime. Completed/Discontinued Medications Medication Drug Class(es) Dates Sig (Normalized) Sig (Original) gadobutrol (Gadavist) injection 6.6 mL (2 sources) Start: 11-12-2022 End: 11-12-2022 gadobutrol (Gadavist) injection 6.6 mL Problems Active Problems Problem Classification Problem Date Documented Date Episodic/Chronic Anxiety disorders (15 sources) Generalized anxiety disorder; Translations: [Generalized anxiety disorder] Onset: 02-20-2023 04-12-2020 Chronic Disorders of lipid metabolism (15 sources) Hyperlipidemia; Translations: [Hyperlipidemia, unspecified] Onset: 07-03-2021 04-11-2020 Chronic Epilepsy; convulsions (15 sources) Epilepsy; Translations: [Epilepsy, unspecified, not intractable, without status epilepticus] Onset: 11-24-2023 04-12-2020 Chronic Comment on above: LAST SEIZURE 10+ YRS AO Genitourinary symptoms and ill-defined conditions (12 sources) Mixed urinary incontinence; Translations: [Mixed incontinence] Onset: 09-13-2010 09-13-2010 Chronic Mood disorders (11 sources) Depressive disorder; Translations: [Depression] 04-12-2020 Chronic Nonmalignant breast conditions (5 sources) Mammary duct ectasia of left breast; 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] 12-06-2022 Chronic Nonmalignant breast conditions (3 sources) Pain of breast; Translations: [Mastodynia] Episodic Nonspecific chest pain (11 sources) Chest wall pain; Translations: [Other chest pain] 03-15-2020 Episodic Other and unspecified benign neoplasm (1 source) History of polyp of colon; Translations: [Personal history of colonic polyps] 11-24-2023 Episodic Other congenital anomalies (12 sources) Congenital anomaly of skin; Translations: [Other specified congenital malformations of skin] Onset: 09-17-2007 09-17-2007 Chronic Other screening for suspected conditions (not mental disorders or infectious disease) (11 sources) CT of chest abnormal; Translations: [Abnormal findings on diagnostic imaging of other specified body structures] 04-12-2020 Chronic Other screening for suspected conditions (not mental disorders or infectious disease) (19 sources) Patient encounter status; Translations: [Encounter for screening mammogram for malignant neoplasm of breast] Onset: 12-09-2023 Episodic Other upper respiratory disease (11 sources) Allergic rhinitis; Translations: [Allergic rhinitis, unspecified] 04-12-2020 Chronic Prolapse of female genital organs (20 sources) Midline cystocele; Translations: [Cystocele, midline] Onset: 09-13-2010 09-13-2010 Chronic Residual codes; unclassified (11 sources) Tobacco user; Translations: [Tobacco use] 08-15-2020 Episodic Residual codes; unclassified (4 sources) Family history of breast cancer; Translations: [Family history of malignant neoplasm of breast] 11-12-2022 Episodic Residual codes; unclassified (3 sources) Family history of malignant neoplasm of pancreas; Translations: [Family history of malignant neoplasm of digestive organs] 12-06-2022 Episodic Residual codes; unclassified (1 source) Family history of prostate cancer; Translations: [Family history of malignant neoplasm of prostate] 12-09-2023 Episodic Residual codes; unclassified (2 sources) Family history of malignant melanoma; Translations: [Family history of malignant neoplasm of other organs or systems] 12-09-2023 Episodic Residual codes; unclassified (1 source) Family history of cancer of colon; Translations: [Family history of malignant neoplasm of digestive organs] 12-09-2023 Episodic Residual codes; unclassified (1 source) Family history of ischemic heart disease and other diseases of the circulatory system; Translations: [Family history of ischemic heart disease and other diseases of the circulatory system] Onset: 10-07-2024 Episodic Rheumatoid arthritis and related disease (2 sources) Rheumatoid arthritis; Translations: [Rheumatoid arthritis, unspecified] Onset: 10-04-2024 12-06-2022 Chronic Spondylosis; intervertebral disc disorders; other back problems (11 sources) Degeneration of cervical intervertebral disc; Translations: [Other cervical disc degeneration, unspecified cervical region] 04-12-2020 Chronic Spondylosis; intervertebral disc disorders; other back problems (11 sources) Cervical radiculopathy; Translations: [Radiculopathy, cervical region] 12-30-2017 Episodic Sprains and strains (11 sources) Strain of neck muscle; Translations: [Strain of muscle, fascia and tendon at neck level, initial encounter] 12-30-2017 Episodic Unclassified (2 sources) 1 Year Follow-up; Translations: [1 Year Follow-up] Onset: 12-09-2023 Past or Other Problems Problem Classification Problem Date Documented Da te Episodic/Chronic Headache; including migraine (2 sources) Headache Onset: 06-25-2023 Episodic Other bone disease and musculoskeletal deformities (1 source) Costal chondritis; Translations: [Chondrocostal junction syndrome [Tietze]] Episodic Results Test Name Value Interpretation Reference Range Facility Absolute lymphocyte countOrd ered By: Mary Ann Vazquez on 10-01-2024 Lymphocytes Auto (Unsp spec) [#/Vol] 2.72 10*3/uL 0.83-4.51 [facility] Absolute neutrophil countOrd ered By: Mary Ann Vazquez on 10-01-2024 Neutrophils (Bld) [#/Vol] 5.0 10*3/uL 2.0-7.7 [facility] Anion gap in Serum or Plasma Ordered By: Mary Ann Vazquez on 10-01-2024 Anion gap [Moles/Vol] 12 mmol/L 5-15 [facility] Automated lymphocyte count a s percentage of total leukocytesOrdered By: Mary Ann Vazquez on 10-01-2024 Lymphocytes/100 WBC Auto (Unsp spec) 32.2 % -41 [facility] BUN/creatinine ratioOrdered By: Mary Ann Vazquez on 10-01-2024 Urea nitrogen/Creatinine [Mass ratio] 16.6 mg/mg 10-20 [facility] Basophil percentageOrdered B y: Mary Ann Vazquez on 10-01-2024 Basophils/100 WBC (Bld) 0.7 % 0-1 [facility] Bilirubin, totalOrdered By: Mary Ann Vazquez on 10-01-2024 Bilirubin [Mass/Vol] mg/dL 0.00-1.30 [facility] CBC W/Diff, Automatedon Absolute Lymph 2.72 X10 3/uL Normal 0.83-4.51 [facility] Comment on above: Performed By: #### L 100.0100, L500.4050 #### [facility] [address] [place], [address] Absolute Neut 5.0 X10 3/uL Normal 2.0-7.7 [facility] Comment on above: Performed By: #### L 100.0100, [id number] #### [facility] [address] [place], [address] Basophils/100 WBC (Bld) 0.7 % Normal 0-1 [facility] Comment on above: Performed By: #### L 100.0100, [id number] #### [facility] [address] [place], [address] Eosinophils/100 WBC (Bld) 0.9 % Normal 0-5 [facility] Comment on above: Performed By: #### L 100.0100, [id number] #### [facility] [address] [place], [address] Erythrocyte distribution width (RBC) [Ratio] 12.3 % Normal 11.6-14.6 [facility] Comment on above: Performed By: #### L 100.0100, [id number] #### [facility] [address] [place], [address] Hematocrit (Bld) [Volume fraction] 36.4 % Low 37-47 [facility] Comment on above: Performed By: #### L 100.0100, [id number] #### [facility] [address] [place], [address] Hemoglobin (Bld) [Mass/Vol] 12.7 g/dL Normal 12.0-15.0 [facility] Comment on above: Performed By: #### L 100.0100, [id number] #### [facility] [address] [place], [address] IG% 0.400 Normal 0.0-0.9 [facility] Comment on above: Result Comment: IG% - Immature Granulocytes (promyelocytes, myelocytes and metamyelocytes) > 1% indicates that a LEFT SHIFT is Present. Performed By: #### L 100.0100, L500.4050 #### [facility] [address] [place], [address] Lymphocytes/100 WBC (Bld) 32.2 % Normal 19-41 [facility] Comment on above: Performed By: #### L 100.0100, [id number] #### [facility] [address] [place], [address] MCH (RBC) [Entitic mass] 32.9 pg High 27.0-32.0 [facility] Comment on above: Performed By: #### L 100.0100, [id number] #### [facility] [address] [place], [address] MCHC (RBC) [Mass/Vol] 34.9 g/dL Normal 32-36 [facility] Comment on above: Performed By: #### L 100.0100, [id number] #### [facility] [address] [place], [address] MCV (RBC) [Entitic vol] 94.3 fL Normal 81-99 [facility] Comment on above: Performed By: #### L 100.0100, [id number] #### [facility] [address] [place], [address] Monocytes/100 WBC (Bld) 6.4 % Normal 0-10 [facility] Comment on above: Performed By: #### L 100.0100, [id number] #### [facility] [address] [place], [address] Neutrophils/100 WBC (Bld) 59.4 % Normal 47-70 [facility] Comment on above: Performed By: #### L 100.0100, [id number] #### [facility] [address] [place], [address] Nucleated RBC (Bld) [#/Vol] 0 10*3/uL Normal 0-5 [facility] Comment on above: Performed By: #### L 100.0100, [id number] #### [facility] [address] [place], [address] Platelet mean volume (Bld) [Entitic vol] 9.8 fL Normal 6.2-12.0 [facility] Comment on above: Performed By: #### L 100.0100, [id number] #### [facility] [address] [place], [address] Platelets (Bld) [#/Vol] 296 10*3/uL Normal 150-450 [facility] Comment on above: Performed By: #### L 100.0100, [id number] #### [facility] [address] [place], [address] RBC (Bld) [#/Vol] 3.86 10*6/uL Low 4.2-5.4 [facility] Comment on above: Performed By: #### L 100.0100, [id number] #### [facility] [address] [place], [address] RDW SD 42.7 fl Normal 35.1-43.9 [facility] Comment on above: Performed By: #### L 100.0100, [id number] #### [facility] [address] [place], [address] WBC (Bld) [#/Vol] 8.4 10*3/uL Normal 4.4-11.0 [facility] Comment on above: Performed By: #### L 100.0100, [id number] #### [facility] [address] [place], [address] Carbon dioxide, total [Moles /volume] in Central venous bloodOrdered By: Mary Ann Vazquez on 10-01-2024 CO2 [Moles/Vol] 22.6 mmol/L 21.0-32.0 [facility] Chloride assayOrdered By: Gonsalo Vazquez on 10-01-2024 Chloride [Moles/Vol] 97 mmol/L Low 98-108 [facility] Comprehensive Metabolic Prof ilon 10-01-2024 Albumin [Mass/Vol] 4.2 g/dL Normal 3.4-4.8 [facility] Comment on above: Performed By: #### L 100.0100, [id number] #### [facility] [address] [place], [address] Albumin/Globulin [Mass ratio] 1.6 {ratio} Normal 0.9-2.4 [facility] Comment on above: Performed By: #### L 100.0100, [id number] #### [facility] [address] [place], [address] ALK PHOS 86 U/L Normal 35-104 [facility] Comment on above: Performed By: #### L 100.0100, [id number] #### [facility] [address] [place], [address] ALT [Catalytic activity/Vol] 24 U/L Normal <=34 [facility] Comment on above: Performed By: #### L 100.0100, [id number] #### [facility] [address] [place], [address] AST [Catalytic activity/Vol] 27 U/L Normal <=31 [facility] Comment on above: Performed By: #### L 100.0100, [id number] #### [facility] [address] [place], [address] BUN/CRE 16.6 RATIO Normal 10-20 [facility] Comment on above: Performed By: #### L 100.0100, [id number] #### [facility] [address] [place], [address] Calcium [Mass/Vol] 9.0 mg/dL Normal 7.6-11.0 [facility] Comment on above: Performed By: #### L 100.0100, [id number] #### [facility] [address] [place], [address] Chloride [Moles/Vol] 97 mmol/L Low 98-108 [facility] Comment on above: Performed By: #### L 100.0100, [id number] #### [facility] [address] [place], [address] CO2 [Moles/Vol] 22.6 mmol/L Normal 21.0-32.0 [facility] Comment on above: Performed By: #### L 100.0100, [id number] #### [facility] [address] [place], [address] Creatinine [Mass/Vol] 0.52 mg/dL Low 0.70-1.20 [facility] Comment on above: Performed By: #### L 100.0100, [id number] #### [facility] [address] [place], [address] GAP 12 Normal 5-15 [facility] Comment on above: Performed By: #### L 100.0100, [id number] #### [facility] [address] [place], [address] GFR/1.73 sq M.predicted among non-blacks MDRD (S/P/Bld) [Vol rate/Area] 106 mL/min/{1.73_m2} Normal >60 [facility] Comment on above: Result Comment: mL/m in/1.73m2 CKD-EPI Creatinine Equation (2020) Performed By: #### L 100.0100, [id number] #### [facility] [address] [place], [address] Globulin (S) [Mass/Vol] 2.6 g/dL Normal 2.2-4.2 [facility] Comment on above: Performed By: #### L 100.0100, [id number] #### [facility] [address] [place], [address] Glucose [Mass/Vol] 94 mg/dL Normal 70-99 [facility] Comment on above: Performed By: #### L 100.0100, [id number] #### [facility] [address] [place], [address] Potassium [Moles/Vol] 4.0 mmol/L Normal 3.3-5.1 [facility] Comment on above: Performed By: #### L 100.0100, [id number] #### [facility] [address] [place], [address] Sodium [Moles/Vol] 132 mmol/L Low 133-145 [facility] Comment on above: Performed By: #### L 100.0100, [id number] #### [facility] [address] [place], [address] T BILI < 0.15 Normal 0.00-1.30 [facility] Comment on above: Performed By: #### L 100.0100, [id number] #### [facility] [address] [place], [address] T PROT 6.8 g/dL Normal 5.9-8.4 [facility] Comment on above: Performed By: #### L 100.0100, [id number] #### [facility] [address] [place], [address] Urea nitrogen [Mass/Vol] 9 mg/dL Normal 4-19 [facility] Comment on above: Performed By: #### L 100.0100, [id number] #### [facility] [address] [place], [address] Eosinophil percentageOrdered By: Mary Ann Vazquez on 10-01-2024 Eosinophils/100 WBC (Bld) 0.9 % 0-5 [facility] Erythrocyte distribution wid th ratioOrdered By: Mary Ann Vazquez on 10-01-2024 Erythrocyte distribution width (RBC) [Ratio] 12.3 % 11.6-14.6 [facility] Erythrocyte distribution wid th standard deviationOrdered By: Mary Ann Vazquez on 10-01-2024 Erythrocyte distribution width (RBC) [Ratio] 42.7 fl 35.1-43.9 [facility] Glomerular filtration rate ( GFR) estimation/1.73 sq m using serum, plasma, or whole bOrdered By: Mary Ann Vazquez on 10-01-2024 GFR/1.73 sq M.predicted among non-blacks MDRD (S/P/Bld) [Vol rate/Area] 106 mL/min/{1.73_m2} >60 [facility] Comment on above: mL/min/1.73m2 CKD-EP I Creatinine Equation (2020) Hematocrit Auto (Bld) [Volum e fraction]Ordered By: Mary Ann Vazquez on 10-01-2024 Hematocrit (Bld) [Volume fraction] 36.4 % Low 37-47 [facility] Hemoglobin measurementOrdere d By: Mary Ann Vazquez on 10-01-2024 Hemoglobin (Bld) [Mass/Vol] 12.7 g/dL 12.0-15.0 [facility] Immature granulocytes/100 WB C Auto (Bld)Ordered By: Mary Ann Vazuqez on 10-01-2024 Immature granulocytes/100 WBC (Bld) 0.400 % 0.0-0.9 [facility] Comment on above: IG% - Immature Granu locytes (promyelocytes, myelocytes and metamyelocytes) > 1% indicates that a LEFT SHIFT is Present. Laboratory - Chemistry and C hemistry - challengeOrdered By: Mary Ann Vazquez on 10-01-2024 AST [Catalytic activity/Vol] 27 U/L <32 [facility] MCV (mean corpuscular volume ) determinationOrdered By: Mary Ann Vazquez on 10-01-2024 MCV (RBC) [Entitic vol] 94.3 fL 81-99 [facility] Mean corpuscular hemoglobin (MCH) determinationOrdered By: Mary Ann Vazquez on 10-01-2024 MCH (RBC) [Entitic mass] 32.9 pg High 27.0-32.0 [facility] Mean corpuscular hemoglobin concentration (MCHC) determinationOrdered By: Mary Ann Vazquez on 10-01-2024 MCHC (RBC) [Mass/Vol] 34.9 g/dL 32-36 [facility] Mean platelet volume determi nationOrdered By: Mary Ann Vazquez on 10-01-2024 Platelet mean volume (Bld) [Entitic vol] 9.8 fL 6.2-12.0 [facility] Monocyte percentageOrdered B y: Mary Ann Vazquez on 10-01-2024 Monocytes/100 WBC (Bld) 6.4 % 0-10 [facility] Neutrophil percentageOrdered By: Mary Ann Vazquez on 10-01-2024 Neutrophils/100 WBC (Bld) 59.4 % 47-70 [facility] Nucleated red blood cell per centageOrdered By: Mary Ann Vazquez on 10-01-2024 Nucleated RBC/100 WBC (Bld) [Ratio] 0 % 0-5 [facility] Platelet countOrdered By: Gonsalo Vazquez on 10-01-2024 Platelets (Bld) [#/Vol] 296 10*3/uL 150-450 [facility] Potassium measurement (mass/ volume)Ordered By: Mary Ann Vazquez on 10-01-2024 Potassium (Unsp spec) [Mass/Vol] 4.0 mmol/L 3.3-5.1 [facility] RBC Auto (Bld) [#/Vol]Ordere d By: Mary Ann Vazquez on 10-01-2024 RBC (Bld) [#/Vol] 3.86 10*6/uL Low 4.2-5.4 [facility] Serum creatinine measurement (mass/volume)Ordered By: Mary Ann Vazquez on 10-01-2024 Creatinine [Mass/Vol] 0.52 mg/dL Low 0.70-1.20 [facility] Serum globulin measurementOr dered By: Mary Ann Vazquez on 10-01-2024 Globulin (S) [Mass/Vol] 2.6 g/dL 2.2-4.2 [facility] Serum glucose measurement (m ass/volume)Ordered By: Mary Ann Vazquez on 10-01-2024 Glucose [Mass/Vol] 94 mg/dL 70-99 [facility] Serum or plasma alanine ndiaye otransferase (ALT) measurementOrdered By: Mary Ann Vazquez on 10-01-2024 ALT [Catalytic activity/Vol] 24 U/L <35 [facility] Serum or plasma albumin marco urement (mass/volume)Ordered By: Mary Ann Vazquez on 10-01-2024 Albumin [Mass/Vol] 4.2 g/dL 3.4-4.8 [facility] Serum or plasma albumin/glob ulin mass ratioOrdered By: Mary Ann Vazquez 10-01-2024 Albumin/Globulin [Mass ratio] 1.6 {ratio} 0.9-2.4 [facility] Serum or plasma alkaline farida sphatase measurementOrdered By: Mary Ann Vazquez 10-01-2024 ALP [Catalytic activity/Vol] 86 U/L 35-104 [facility] Serum or plasma calcium marco urement (mass/volume)Ordered By: Mary Ann Vazquez on 10-01-2024 Calcium [Mass/Vol] 9.0 mg/dL 7.6-11.0 [facility] Serum or plasma urea nitroge n measurement (mass/volume)Ordered By: Mary Ann Vazquez on 10-01-2024 Urea nitrogen [Mass/Vol] 9 mg/dL 4-19 [facility] Sodium levelOrdered By: Sydni Vazquez on 10-01-2024 Sodium [Moles/Vol] 132 mmol/L Low 133-145 [facility] Total proteinOrdered By: Wilner Vazquez on 10-01-2024 Protein [Mass/Vol] 6.8 g/dL 5.9-8.4 [facility] White blood cell (WBC) count Ordered By: Mary Ann Vazquez on 10-01-2024 WBC (Bld) [#/Vol] 8.4 10*3/uL 4.4-11.0 [facility] Coronary Angiography CTon Coronary Angiography CT [facility] [address] [place] [address] 07/20/24 0755 MR#: [id number] Acct: [id number] Name: REYMUNDO ALANIS Rep #: [id number] : 1965 59 From: Arron Soto MD PCP: Dr. Nathanael Frazier MD Status:REG REF Y Location: CT Calcium Scoring Date of Study:: 07/20/24 Indications Indications: Fh Coronary Calcium Scoring: High-resolution Computed Tomographic imaging of the chest was performed on [ 07/20/24], with particular attention paid to the coronary arteries. Images from the examination were analyzed for the presence and extent of coronary artery calcification , using coronary calcium quantification software. The patient tolerated the procedure well and there were no complications. The results of the coronary calcification analysis are provided below. Findings Coronary Artery Left Main (LM): 0 Left Anterior Descending (LAD): 0 Left Circumflex (LCX): 0 Right Coronary Artery (RCA): 0 Total Agatston Score: 0 Percentile Rankin% Calcium Scoring Interpretation: Different methods to categorize the overall amount of coronary plaque. Overall amount CAC SIS Visual of coronary plaque P1 Mild -100 <2 1-2 vessels with mild amount of plaque P2 Moderate 101-300 3-4 1-2 vessels with moderate amount, 3 vessels with mild amount of plaque P3 Severe 301-999 5-7 3 vessels with moderate amount, 1 vessel with severe amount of plaque P4 Extensive >1000 >8 2-3 vessels with severe amount of plaque Conclusion: No atherosclerotic plaque noted. 07/20/24 0757 Date Arron Soto MD Cosigner Signature (if applicable): Date CC: Dr. Nathanael Frazier MD; Dr. Arron Soto MD Signed Normal [facility] Limited Chest CT Cardiac Onl yon 07-20-[address] Cardiac Only [facility] [address] [place] [id number] Cardiac Only MR#: [id number] Acct: [id number] Name: REYMUNDO ALANIS Rep #: [id number] : 1965 F 59 From: Bharat reynolds MD PCP: Dr. Nathanael Frazier MD Status: REG REF Study: Limited Chest CT Cardiac Only Date of Exam: Exam# [id number] Ordering Dr: Nathanael Frazier MD PROCEDURE: LIMITED CHEST CT CARDIAC ONLY REASON FOR EXAM: FAMILY HX OF HEART DISEASE TECHNIQUE: Supine chest CT without contrast. One or more dose reduction techniques were used (e.g., Automated exposure control, adjustment of the mA and/or kV according to patient size, use of iterative reconstruction technique). COMPARISON: Comparison is made with prior study dated April 06, 2020. FINDINGS: Hardware: None Lymph nodes: No mediastinal hilar or axillary lymphadenopathy. Heart and Vasculature: Normal heart size. No pericardial effusion. Coronary Artery Calcifications: Absent Lungs and Airways: Minimal increased linear markings at the lung bases suggestive of mild linear scarring. Pleura: Unremarkable Upper Abdomen: Unremarkable Bones: Degenerative changes of the thoracic spine. CT/Limited Chest CT Cardiac Only IMPRESSION: Coronary artery calcification (CAC) is is absent Reading Location: [facility]P-IR-1 CC: Dr. Nathanael Frazier MD Smelter Operator: Signed Normal [facility] CBC W/Diff, Automatedon 12- Absolute Lymph 1.63 X10 3/uL Normal 0.83-4.51 [facility] Comment on above: Performed By: #### L 100.0100, L500.4050 #### [facility] [address] [place], [address] Absolute Neut 3.5 X10 3/uL Normal 2.0-7.7 [facility] Comment on above: Performed By: #### L 100.0100, L500.4050 #### [facility] [address] [place], [address] Basophils/100 WBC (Bld) 0.7 % Normal 0-1 [facility] Comment on above: Performed By: #### L 100.0100, L500.4050 #### [facility] [address] [place], [address] Eosinophils/100 WBC (Bld) 0.9 % Normal 0-5 [facility] Comment on above: Performed By: #### L 100.0100, L500.4050 #### [facility] [address] [place], [address] Erythrocyte distribution width (RBC) [Ratio] 11.9 % Normal 11.6-14.6 [facility] Comment on above: Performed By: #### L 100.0100, L500.4050 #### [facility] [address] [place], [address] Hematocrit (Bld) [Volume fraction] 36.5 % Low 37-47 [facility] Comment on above: Performed By: #### L 100.0100, L500.4050 #### [facility] [address] [place], [address] Hemoglobin (Bld) [Mass/Vol] 12.8 g/dL Normal 12.0-15.0 [facility] Comment on above: Performed By: #### L 100.0100, L500.4050 #### [facility] [address] [place], [address] IG% 0.400 Normal 0.0-0.9 [facility] Comment on above: Result Comment: IG% - Immature Granulocytes (promyelocytes, myelocytes and metamyelocytes) > 1% indicates that a LEFT SHIFT is Present. Performed By: #### L 100.0100, L500.4050 #### [facility] [address] [place], [address] Lymphocytes/100 WBC (Bld) 28.8 % Normal 19-41 [facility] Comment on above: Performed By: #### L 100.0100, L500.4050 #### [facility] [address] [place], [address] MCH (RBC) [Entitic mass] 32.7 pg High 27.0-32.0 [facility] Comment on above: Performed By: #### L 100.0100, L500.4050 #### [facility] [address] [place], [address] MCHC (RBC) [Mass/Vol] 35.1 g/dL Normal 32-36 [facility] Comment on above: Performed By: #### L 100.0100, L500.4050 #### [facility] [address] [place], [address] MCV (RBC) [Entitic vol] 93.4 fL Normal 81-99 [facility] Comment on above: Performed By: #### L 100.0100, L500.4050 #### [facility] [address] [place], [address] Monocytes/100 WBC (Bld) 7.1 % Normal 0-10 [facility] Comment on above: Performed By: #### L 100.0100, L500.4050 #### [facility] [address] [place], [address] Neutrophils/100 WBC (Bld) 62.1 % Normal 47-70 [facility] Comment on above: Performed By: #### L 100.0100, L500.4050 #### [facility] [address] [place], [address] Nucleated RBC (Bld) [#/Vol] 0 10*3/uL Normal 0-5 [facility] Comment on above: Performed By: #### L 100.0100, L500.4050 #### [facility] [address] [place], [address] Platelet mean volume (Bld) [Entitic vol] 8.8 fL Normal 6.2-12.0 [facility] Comment on above: Performed By: #### L 100.0100, L500.4050 #### [facility] [address] [place], [address] Platelets (Bld) [#/Vol] 296 10*3/uL Normal 150-450 [facility] Comment on above: Performed By: #### L 100.0100, L500.4050 #### [facility] [address] [place], [address] RBC (Bld) [#/Vol] 3.91 10*6/uL Low 4.2-5.4 [facility] Comment on above: Performed By: #### L 100.0100, L500.4050 #### [facility] [address] [place], [address] RDW SD 39.9 fl Normal 35.1-43.9 [facility] Comment on above: Performed By: #### L 100.0100, L500.4050 #### [facility] [address] [place], [address] WBC (Bld) [#/Vol] 5.7 10*3/uL Normal 4.4-11.0 [facility] Comment on above: Performed By: #### L 100.0100, L500.4050 #### [facility] [address] [place], [address] Comprehensive Metabolic Prof ilon 04-10-2024 Albumin [Mass/Vol] 3.7 g/dL Normal 3.2-5.0 [facility] Comment on above: Performed By: #### L 100.0100, L500.4050 #### [facility] [address] [place], [address] Albumin/Globulin [Mass ratio] 1.1 {ratio} Normal 0.9-2.4 [facility] Comment on above: Performed By: #### L 100.0100, L500.4050 #### [facility] [address] [place], [address] ALK P 90 U/L Normal 45-117 [facility] Comment on above: Performed By: #### L 100.0100, L500.4050 #### [facility] [address] [place], [address] ALT [Catalytic activity/Vol] 33 U/L Normal 13-56 [facility] Comment on above: Performed By: #### L 100.0100, L500.4050 #### [facility] [address] [place], [address] AST [Catalytic activity/Vol] 22 U/L Normal 15-37 [facility] Comment on above: Performed By: #### L 100.0100, L500.4050 #### [facility] [address] [place], [address] Bilirubin [Mass/Vol] 0.40 mg/dL Normal 0.20-1.00 [facility] Comment on above: Result Comment: For patients on eltrombopag therapy, use of Dimension [place] TBIL is not recommended. Performed By: #### L 100.0100, L500.4050 #### [facility] [address] [place], [address] BUN/CRE 16.3 RATIO Normal 10-20 [facility] Comment on above: Performed By: #### L 100.0100, L500.4050 #### [facility] [address] [place], [address] CA,Total 8.9 mg/dL Normal 8.5-10.1 [facility] Comment on above: Performed By: #### L 100.0100, L500.4050 #### [facility] [address] [place], [address] Chloride [Moles/Vol] 102 mmol/L Normal 98-107 [facility] Comment on above: Performed By: #### L 100.0100, L500.4050 #### [facility] [address] [place], [address] CO2 [Moles/Vol] 25.0 mmol/L Normal 21.0-32.0 [facility] Comment on above: Performed By: #### L 100.0100, L500.4050 #### [facility] [address] [place], [address] Creatinine [Mass/Vol] 0.43 mg/dL Low 0.55-1.02 [facility] Comment on above: Result Comment: The validity of the calculated GFR GFRAA in patients over 70 years has not been determined. Clinical correlation is essential. Performed By: #### L 100.0100, L500.4050 #### [facility] [address] [place], [address] EST GFR - AA 193 mL/min Normal >60 [facility] Comment on above: Result Comment: Afri can Trin[place] GFR Calc Performed By: #### L 100.0100, L500.4050 #### [facility] [address] [place], [address] GAP 6 Normal 5-15 [facility] Comment on above: Performed By: #### L 100.0100, L500.4050 #### [facility] [address] [place], [address] GFR/1.73 sq M.predicted among non-blacks MDRD (S/P/Bld) [Vol rate/Area] 160 mL/min/{1.73_m2} Normal >60 [facility] Comment on above: Result Comment: Non- GFR Calc Performed By: #### L 100.0100, L500.4050 #### [facility] [address] [place], [address] Globulin (S) [Mass/Vol] 3.3 g/dL Normal 2.2-4.2 [facility] Comment on above: Performed By: #### L 100.0100, L500.4050 #### [facility] [address] [place], [address] Glucose [Mass/Vol] 105 mg/dL Normal 74-106 [facility] Comment on above: Result Comment: Fast ing Glucose result from 100 to 125 mg/dL suggests IMPAIRED HOMEOSTASIS per A.D.A. criteria. Performed By: #### L 100.0100, L500.4050 #### [facility] [address] [place], [address] Potassium [Moles/Vol] 4.1 mmol/L Normal 3.5-5.1 [facility] Comment on above: Performed By: #### L 100.0100, L500.4050 #### [facility] [address] [place], [address] Sodium [Moles/Vol] 133 mmol/L Low 136-145 [facility] Comment on above: Performed By: #### L 100.0100, L500.4050 #### [facility] [address] [place], [address] T PROT 7.0 g/dL Normal 6.4-8.2 [facility] Comment on above: Performed By: #### L 100.0100, L500.4050 #### [facility] [address] [place], [address] Urea nitrogen [Mass/Vol] 7 mg/dL Normal 7-18 [facility] Comment on above: Performed By: #### L 100.0100, L500.4050 #### [facility] [address] [place], [place], [address] CNOVon 03-05-2024 CNOV Office Visit (OBGYWM ) -- REYMUNDO ALANIS ([id number]) 1965 F Date Time Provider Department 03/05/24 3:30 PM JADE FERGUSON OBGYWM During your visit today, we recorded the following information about you: Weight Height 69.4 kg 1.542 m Jade Ferguson APRN.CNP 03/05/2024 4:01 PM Signed Ceramic Coater offered: Patient declines. Ricketts is a 59 year old who presents for an annual gynecologic exam without complaints. Postmenopausal: Yes HRT use: No. Last Pap: 08/20/2010 normal HPV: 07/26/2009 negative History of abnormal pap: No Last mammogram: 2023 normal History of abnormal mammogram: Yes , mammary duct ectasia Sexually active: No OB History T1 L3 SAB0 IAB0 Ectopic0 Multiple1 Live Births0 Comment: [employer]. 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 No bloating, early satiety, indigestion, or increased flatulence. Bladder: No dysuria, gross hematuria, urinary frequency, urinary urgency, or incontinence Breast: No breast lumps, nipple d/c, overlying skin changes, redness or skin retraction Allergies and current medication updated:Yes SENSITIVE EXAM: The sensitive examination was discussed with the Patient or Patient's Authorized Endless Steamer Tender. As applicable, any other physician, advance practice provider, medical student, or other health professional student that will be observing or involved in the sensitive examination for educational or training purposes was discussed with the Patient or Authorized Endless Steamer Tender. The Patient or Authorized Endless Steamer Tender has agreed to proceed with the sensitive examination. (Sensitive examination includes inspection and/or palpation of the breasts, pelvis, prostate and anorectal regions). EXAM: LMP 08/19/2010 GENERAL: pleasant, female in no apparent distress HEENT: Normocephalic, atraumatic, mucus membranes moist, and no lesions DERMATOLOGY: Normal, without lesions, non-icteric, and non-hirsute BREAST: soft, non-tender, symmetric, no dominant mass, normal nipple-areolar complex, no lymphadenopathy, and no nipple discharge CHEST: Normal inspiratory effort ABDOMEN: soft, non-tender, and no masses PELVIC: external genitalia normal, normal Bartholin's glands, urethra, [place]'s glands, no vulvar lesions, physiologic discharge present, normal appearing perineal body and perianal region, cervix surgically absent BIMANUAL: no adnexal masses, non-tender, and uterus surgically absent RECTOVAGINAL: deferred. NEURO: alert and oriented x3,exam grossly non-focal EXTREMITIES: normal ASSESSMENT/PLAN: 1) Health maintenance: Pap/HPV screening no longer needed Mammogram ordered Mammogram up to date Nutrition, exercise and routine hea (more content not included)... Normal [facility] Colonoscopy Reporton 024 Colonoscopy Report [facility] Medical Records Department [address] [place] [address] Colonoscopy Report MR#: [id number] Acct: [id number] Name: REYMUNDO ALANIS Rep #: [id number] : 1965 59 From: Chase Guadarrama DO PCP: Dr. Nathanael Frazier MD Status:[facility] Patient Name: Reymundo Alanis Procedure Date: 02/23/2024 9:52 AM Date of : 1965 Age: 59 Procedure: Colonoscopy Indications: Screening for colorectal malignant neoplasm Providers: Chase Guadarrama DO Referring MD: Nathanael Frazier Md Medicines: Monitored Anesthesia Care Patient Profile: This is a 59 year old female. Refer to note in patient chart for documentation of history and physical. Last Colonoscopy: 5 years ago. Complications: No immediate complications. Procedure: Pre-Anesthesia Assessment: - Prior to the procedure, a History and Physical was performed, and patient medications and allergies were reviewed. The patient is competent. The risks and benefits of the procedure and the sedation options and risks were discussed with the patient. All questions were answered and informed consent was obtained. Patient identification and proposed procedure were verified by the physician in the pre-procedure area. Mental Status Examination: alert and oriented. Airway Examination: normal oropharyngeal airway and neck mobility. Respiratory Examination: clear to auscultation. CV Examination: normal. Prophylactic Antibiotics: The patient does not require prophylactic antibiotics. Prior Anticoagulants: The patient has taken no anticoagulant or antiplatelet agents. ASA Grade Assessment: II - A patient with mild systemic disease. After reviewing the risks and benefits, the patient was deemed in satisfactory condition to undergo the procedure. The anesthesia plan was to use monitored anesthesia care (MAC). Immediately prior to administration of medications, the patient was re-assessed for adequacy to receive sedatives. The heart rate, respiratory rate, oxygen saturations, blood pressure, adequacy of pulmonary ventilation, and response to care were monitored throughout the procedure. The physical status of the patient was re-assessed after the procedure. After I obtained informed consent, the scope was passed under direct vision. Throughout the procedure, the patient's blood pressure, pulse, and oxygen saturations were monitored continuously. The Colonoscope was introduced through the anus and advanced to the cecum, identified by appendiceal orifice and ileocecal valve. The colonoscopy was performed without difficulty. The patient tolerated the procedure well. The quality of the bowel preparation was adequate. Scope In: 10:01:53 AM Scope Withdrawal Time 0 hours 10 minutes 56 seconds Scope Out: 10:16:59 AM Total Procedure Duration Time 0 hours 15 minutes 6 seconds Findings: The perianal and digital rectal examinations were normal. An 8 mm polyp was found in the splenic flexure. The polyp was sessile. The polyp was removed with a cold biopsy forceps. Resection and retrieval were complete. Verification of patient identification for the specimen was done. Estimated blood loss was minimal. A few small-mouthed diverticula were found in the sigmoid colon. Impression: - One 8 mm polyp at the splenic flexure, removed with a cold biopsy forceps. Resected and retrieved. - Diverticulosis in the sigmoid colon. Recommendation: - Discharge patient to home. - Resume previous diet. - Continue present medications. - Await pathology results. - Repeat colonoscopy in 5 years for surveillance. Procedure Code(s): --- Professional --- 79453, Colonoscopy, flexible; with biopsy, single or multiple CPT copyright 2021 [employer]. All rights reserved. The codes documented in this report are preliminary and upon melter caster review may be revised to meet current compliance requirements. Chase Guadarrama DO 02/23/2024 10:22:24 AM This report has been signed electronically. Number of Addenda: 0 Note Initiated On: 02/23/2024 9:52 AM 02/23/24 102 Date Chase Guadarrama DO Cosigner Signature: Date (if indicated) CC: Dr. Nathanael Frazier MD; Chase Guadarrama DO Date Dictated: 02/23/24951 Date Transcribed: Smelter Operator: GUZMAN Signed [facility] MR/POSTOP.[facility] 02-23-2024 MR/POSTOP.[facility] Medical Records Department [address] [place] [address] Anesthesia Postop Eval I 02/23/241027 MR#: [id number] Acct: [id number] Name: REYMUNDO ALANIS Rep #: [id number] : 1965 59 From: Gabo Ye PCP: Dr. Nathanael Frazier MD Status:REG [facility] Y Race: C Location: [place] [address] Anesthesia: Postop Eval I Current Vital Signs Temperature: 97.1 F Pulse Rate: 68 Blood Pressure: 92/58 Respiratory Rate: 16 Pulse Ox: 100 Oxygen Delivery Method: Room Air Assessment Airway patent: Yes Spontaneous unlabored respirations: Yes Mental status: Awake and Calm nausea: No Vomiting: No Anesthesia Complication: No Fluid Hydration Crystalloid volume administer (ml): 40 Total IV fluid infused: 40 Progress Note Anesthesia document: Postop Eval 1 completed: Yes 02/23/24 1029 Date Gabo Kolb Signature: Date CC: Signed Normal [facility] MR/[id number] 02-23-2024 MR/POSTOPAN2 [facility] Medical Records Department [address] [place] [address] Anesthesia Postop Eval II 02/23/24 1548 MR#: [id number] Acct: [id number] Name: REYMUNDO ALANIS Rep #: [id number] : 1965 59 From: Mauro Melo MD PCP: Dr. Nathanael Frazier MD Status:[facility] Y Race: C Location: [place] Anesthesia Postop Eval I Sum Postop Eval Completion status Anesthesia document: Postop Eval 1 completed: Yes Anesthesia Postop Eval I Summary Anesthesia Postop Eval I Summary: Anesthesia Postop Eval I: Assessment Summary Airway patent Yes 02/23/24 10:29 [email or web address] Spontaneous unlabored Yes 02/23/24 10:29 [email or web address] respirations Mental status Awake,Calm 02/23/24 10:29 [email or web address] nausea No 02/23/24 10:29 [email or web address] Vomiting No 02/23/24 10:29 [email or web address] Anesthesia Postop Eval I: Fluid Summary Crystalloid volume administer 40 02/23/24 10:29 [email or web address] (ml) Colloids volume administered ( ml) Blood Product volume administered (ml) Total IV fluid infused 40 02/23/24 10:29 [email or web address] Anesthesia Postop Eval I: Summary Notes Anesthesia Complication No 02/23/24 10:29 [email or web address] Anesthesia Complication Comment: Post-operative progress note Anesthesia: Postop Eval II Evaluation Mental status: Awake and Calm Pain Level: 0 nausea: No Vomiting: No Complications Anesthesia Complication: No 02/23/24 1548 Date Mauro Kolb Signature: Date CC: Signed Normal [facility] Surgery Specimen Level Rogelio 02-23-2024 Surgery Specimen Level IV Patient Age/Sex Location Account Attending Physician REYMUNDO ALANIS 59/F EN [id number] Chase Guadarrama, DO Specimen: [id number] Received: 02/23/24 Status: RAVI Cheema Num: [id number] Spec Type: COLON BX Subm Dr: Chase Guadarrama, DO HEADER OPERATION: Colonoscopy PRE-OP DIAGNOSIS: Encounter for screening for malignant neoplasm of colon TISSUE SUBMITTED: Splenic flexure polyp biopsy MICROSCOPIC DIAGNOSIS Splenic flexure polyp, biopsy: Tubular adenoma. . 02/24/2024 MICROSCOPIC DESCRIPTION Slides are reviewed. GROSS DESCRIPTION Received in fixative is one container labeled with the patient's name and designated Splenic flexure polyp biopsy. The specimen consists of multiple irregular fragments of light crump soft tissue that in aggregate measure 0.8 x 0.6 x 0.1 cm. The specimen is totally submitted in one cassette. . 02/23/2024 TC:1 CPT:05417 Patient Age/Sex Location Account Attending Physician REYMUNDO ALANIS/Eddie BO [id number] Chase Guadarrama DO Signed (signature on file) Dr. Dharmesh Velarde MD 02/24/[address] [facility] Comment on above: Performed By: #### P SUIV #### [facility] [place], [address] 36on 12-09-2023 36 Mammogram scheduled 9:20am on 12/10/24 Normal [facility] 36 TISSUE DENSITY: BIRA DS B - There are scattered fibroglandular densities. FINDINGS: No suspicious masses, architectural distortions or suspiciously clustered microcalcifications are identified. There is no evidence of skin thickening or nipple retraction. There are no significant changes when compared with prior studies. IMPRESSION: No mammographic evidence of malignancy. ASSESSMENT: Category 1 Negative RECOMMENDATION: Routine screening mammogram in 1 year. Bilateral Called and informed patient screening mammogram negative. She is recommended to have a repeat mammogram in 1 year. She prefers mammogram same day as visit here at the breast and her. Will route to staff to help with scheduling. She verbalized understanding and agrees with plan. Normal [facility] DBT Breast - bilateral scree reginaldo 12-09-2023 No mammographic evid ence of malignancy. ASSESSMENT: Category 1 Negative RECOMMENDATION: Routine screening mammogram in 1 year. Bilateral CANCER RISK ASSESSMENT: This risk assessment is based on patient provided information collected in a risk survey taken at the time of this examination. LIFETIME BREAST CANCER RISK: Izzy 8: 13.26% - If greater than or equal to 20%, consider annual mammogram and annual screening Breast MRI or follow up in high risk clinic. Is the patient at elevated risk based on the HBOC criteria? Yes (Hereditary Breast and Ovarian Cancer) - If Yes, consider genetic counseling and testing with high risk follow up Is the patient at elevated risk based on the Linda Syndrome criteria? No - If Yes, consider genetic counseling and testing with high risk follow up. Report Dictated on Electronically Signed By: Kathleen Oneil MD Electronically Signed Date/Time: 12/09/2023 10:47 AM EDT [facility] Patient Name[facility] REYMUNDO BLANKENSHIP [facility] 1965 [id number] Exam Date/Time: 12/09/2023 09:35 Procedure: BI MAMMOGRAM SCREENING TOMOSYNTHESIS BILATERAL Ordering Provider: MARKHAM ELIZABETH Reason For Exam: RISK ALERT: The Cancer Risk Assessment scores below the recommendation of this report contain an outcome above the normal risk range. PATIENT CANCER HISTORY: No Personal History of Cancer FAMILY CANCER HISTORY: Mother Breast Cancer age 78, Pancreatic Cancer age 79 Maternal Grandfather Colon Cancer age 47 Brother Prostate Cancer age 60 Maternal Aunt Pancreatic Cancer age 65 Image views: 2D Bilateral CC and MLO views were acquired. 3D Bilateral CC and MLO views were acquired. Images were reviewed with CAD. Markings on images: BB's = Nipples; skin lesions Open [place] = Palpable Line = Scar COMPARISON: 12/06/2022 and 11/15/2021 TISSUE DENSITY: BIRADS B - There are scattered fibroglandular densities. FINDINGS: No suspicious masses, architectural distortions or suspiciously clustered microcalcifications are identified. There is no evidence of skin thickening or nipple retraction. There are no significant changes when compared with prior studies. [facility] Kathleen Oneil MD - 12/09/2023 Patient Name: REYMUNDO BLANKENSHIP [facility] 1965 [id number] Exam Date/Time: 12/09/2023 09:35 Procedure: BI MAMMOGRAM SCREENING TOMOSYNTHESIS BILATERAL Ordering Provider: MARKHAM ELIZABETH Reason For Exam: RISK ALERT: The Cancer Risk Assessment scores below the recommendation of this report contain an outcome above the normal risk range. PATIENT CANCER HISTORY: No Personal History of Cancer FAMILY CANCER HISTORY: Mother Breast Cancer age 78, Pancreatic Cancer age 79 Maternal Grandfather Colon Cancer age 47 Brother Prostate Cancer age 60 Maternal Aunt Pancreatic Cancer age 65 Image views: 2D Bilateral CC and MLO views were acquired. 3D Bilateral CC and MLO views were acquired. Images were reviewed with CAD. Markings on images: BB's = Nipples; skin lesions Open [place] = Palpable Line = Scar COMPARISON: 12/06/2022 and 11/15/2021 TISSUE DENSITY: BIRADS B - There are scattered fibroglandular densities. FINDINGS: No suspicious masses, architectural distortions or suspiciously clustered microcalcifications are identified. There is no evidence of skin thickening or nipple retraction. There are no significant changes when compared with prior studies. IMPRESSION: No mammographic evidence of malignancy. ASSESSMENT: Category 1 Negative RECOMMENDATION: Routine screening mammogram in 1 year. Bilateral CANCER RISK ASSESSMENT: This risk assessment is based on patient provided information collected in a risk survey taken at the time of this examination. LIFETIME BREAST CANCER RISK: Izzy 8: 13.26% - If greater than or equal to 20%, consider annual mammogram and annual screening Breast MRI or follow up in high risk clinic. Is the patient at elevated risk based on the HBOC criteria? Yes (Hereditary Breast and Ovarian Cancer) - If Yes, consider genetic counseling and testing with high risk follow up Is the patient at elevated risk based on the Linda Syndrome criteria? No - If Yes, consider genetic counseling and testing with high risk follow up. Report Dictated on Electronically Signed By: Kathleen Oneil MD Electronically Signed Date/Time: 12/09/2023 10:47 AM EDT [facility] Radiology Study observation (narrative) [facility] DBT Breast - bilateral scree ningOrdered By: Kathleen Oneil on 12-09-2023 [facility] Work Phone: Office Visiton 12-09-2023 Follow-up visit [id number] Laurie Blankenship 1965 F Date Provider Department Center 12/09/2023 [id number] MARKHAM [facility] None Family History Problem Relation Age of Onset Breast cancer Mother 78 Comments: 1 breast Pancreatic cancer Mother 79 Comments: stage 4 Melanoma Mother 78 Liver cancer Mother 79 Comments: mets from pancreas Testicular cancer Brother 53 Prostate cancer Brother 60 Melanoma Maternal Grandmother 50 Bone cancer Maternal Grandmother 50 Colon cancer Maternal Grandfather 47 Pancreatic cancer Mother's Sister 65 Family Status - Relation Status Age at Mother Father Brother Alive Brother Alive Maternal Grandmother Maternal Grandfather Mother's Sister Level of Service:74201 [place] PREV MED CNSL&/RSK FCTR RDCTJ INDV APPROX 15 MIN Reason for Visit and Comments: 1 Year Follow-up [670] - Breast exam Normal [facility] Progress Noteon 12-09-2023 Progress Note Chief Complaint Patient presents with 1 Year Follow-up Breast exam HPI: Reymundo Blankenship is a 58 y.o. female who presents for annual clinical breast exam Breast history: -05/23/2022: LEFT diagnostic mammogram/ultrasound ([facility]) demonstrated retroareolar ductal dilation -06/05/2022: She was seen in the breast center by Dr. Avalos. Repeat diagnostic imaging recommended -06/07/2022: She was seen at the breast center for genetic testing. -06/07/2022: [facility] [...] breast. -12/06/2022: Bilateral diagnostic mammogram/left breast ultrasound benign (BI-RADS 2) and demonstrate an interval decrease in ductal dilation and internal echoes which are consistent with benign debris. She was recommended to return to routine screening mammogram of both breasts in 1 year. -12/06/2022: She was seen for follow up at the breast center. She was still having some intermittent bilateral breast pain. -12/09/2023: Screening mammogram results not yet available. She has no breast history other than what is outlined above. Today, she still reports intermittent bilateral breast pain. She states she has had this on and off for years. She has no additional concerns today. She denies breast mass, skin change, nipple change, nipple discharge. No prior breast biopsy or breast surgery. Her lifetime risk of breast cancer estimated by the Tyrer-Cuzick V8 model is 11.69%. Today, we discussed given her risk score and breast density, breast MRI not indicated per NCCN guidelines. She is agreeable to continue annual mammogram and clinical breast exam every 6-12 months. She would prefer to follow here at the breast under for annual mammogram and breast exam. She has a significant family history of cancer. See family history section of this note. She did have [employer] panel panel genetic testing 05/2022 which was negative for deleterious mutation. Results scanned into media dated 06/25/2022. She lost her unexpectedly at the end of November 2022. This has been understandably extremely difficult for her. She has a good support system and her children. She is also seeing a counselor regularly. Risk Factors: Menarche: 11 Age of first : 21; Menopause: Post; she had a hysterectomy in 2011 at the age of 46. She retains her ovaries. Physical Activity: She walks occasionally. We discussed the [employer] recommends that adults get at least 150 minutes of moderate intensity or 75 minutes of vigorous intensity activity each week Nutrition: She has been trying to follow a healthy diet. We discussed a plant based diet and limiting added hormones in her meat and dairy. Weight: Stable; BMI 27.78 Smoking: She previously quit in 2012. She did resume smoking due to stress after the unexpected loss of her . She states she is smoking intermittently and knows she needs to quit. ETOH: None Breast Imaging: Screening mammogram 12/09/2023 - Results not yet available Family Cancer history includes: Mother with breast, pancreatic, liver cancer and melanoma age 79 Brother with prostate cancer age 60 Brother with testicular cancer age 53 Maternal grandmother with melanoma and bone cancer age 50 Maternal grandfather with colon cancer age 47 Maternal aunt with pancreatic cancer age 70 Past Medical History: Diagnosis Date Epilepsy (HCC) Fibromyalgia High cholesterol Rheumatoid arthritis (HCC) Past Surgical History: Procedure Laterality Date SECTION, CLASSIC 1992 CHOLECYSTECTOMY 2005 FOOT SURGERY Left 10/2021 left ankle neuroma [...] 108 (90 Base) MCG/ACT inhaler as needed. ARIPiprazole (Abilify) 5 MG tablet atorvastatin (Lipitor) 20 MG tablet carBAMazepine (TEGretol) 200 MG tablet 2 times daily. citalopram (CeleXA) 40 MG tablet gabapentin (Neurontin) 100 MG capsule Take 100 mg by mouth in the morning and 100 mg at noon and 100 mg in the evening. hydroxychloroquine (Plaquenil) 200 MG tablet Take 1.5 tablets by mouth daily. propranolol (Inderal) 20 MG tablet traZODone (Desyrel) 50 MG tablet 1 1/2 TABLET 30-60 MIN PRIOR TO SLEEP FOR INSOMNIA No current facility-administered medications on file prior (more content not included)... [facility] 11-24-2023 CN Office Visit (GENSWS ) -- LAURAREYMUNDO Walker ([id number]) 1965 F Date Time Provider Department 11/24/23 11:45 AM VERNELL VANEGAS During your visit today, we recorded the following information about you: Temperature Pulse Blood pressure Weight 98.1 degrees 78/minute 118/72 66.8 kg Height 1.549 m Vrenell Vanegas APRN.CNP 11/24/2023 12:13 PM Signed HISTORY AND PHYSICAL Reymundo Walker Krzsyztof : 1965 REFERRING PHYSICIAN: No referring provider defined for this encounter. CHIEF COMPLAINT: Patient presents with: Consult: colonoscopy HPI: Reymundo is a 58 year old female referred for endoscopy. Reymundo notes history of colonic polyps. Patient denies any change in bowel habits, weight changes, blood in stools, black tarry stools or abdominal pain. Refers family history of colon issues. Maternal grandfather with colon cancer Reymundo notes no upper GI complaints. Reymundo has a history of seizure disorder she is currently controlled on Tegretol BID. She does not follow with neurology, PCP has been managing her meds. She has not had any breakthrough seizures. Reymundo takes gabapentin and Celexa for arthritis. Reymundo has undergone prior endoscopy. Last colonoscopy was 11/09/[address] Allen. She received Fentanyl 100 micrograms IV, Midazolam 8 mg IV for sedation Impression: - The entire examined colon is normal. - No specimens collected. Current Outpatient Medications Medication Sig ARIPiprazole (ABILIFY) 5 mg tablet propranolol (INDERAL) 20 mg tablet hydrOXYzine HCl (ATARAX) 25 mg tablet hydrOXYchloroQUINE (PLAQUENIL) 200 mg tablet Take 1.5 tablets by mouth every afternoon. gabapentin (NEURONTIN) 100 mg capsule Take 100 mg by mouth three times a day. citalopram (CELEXA) 40 mg tablet acyclovir (ZOVIRAX) 400 mg tablet Take 1 [...] HR TAB) Take one tablet twice daily. No current facility-administered medications for this visit. ALLERGIES: Augmentin [Amoxicillin-Pot Clavulanate] and Seasonal Allergies PAST MEDICAL HISTORY Diagnosis Date DVT of upper extremity (deep vein thrombosis) (HCC) left arm Eczema Elevated cholesterol Epilepsy (HCC) Genital herpes, unspecified HTN (hypertension) Localization-related (focal) (partial) epilepsy and epileptic syndromes with simple partial seizures, without mention of intractable epilepsy SEIZURE DISORDER Mental disorder Rectocele Seasonal allergies Stress incontinence Uterovaginal prolapse PAST SURGICAL HISTORY Procedure Laterality Date DELIVERY [...] No Known Problems Son Diabetes Paternal Aunt Social History Tobacco Use Smoking status: Former Types: Cigarettes Quit date: 03/27/2020 Years since quittin.6 Smokeless tobacco: Never Vaping Use Vaping Use: Former Substance Use Topics Alcohol use: No Drug use: No REVIEW OF SYMPTOMS: The review of systems data was entered by the nurse and reviewed by me Nursing Notes: Karla Pollard RN 11/24/2023 11:32 AM Addendum REVIEW OF SYSTEMS: General: The patient denies fatigue, denies weight loss, denies weight gain, denies feeling hot, and denies feelings of cold. Eyes: The patient denies glaucoma, denies eye injury/surgery, does wear glasses or contacts. Ear/Nose/Throat: The patient denies allergies, NOTES hayfever, denies ear infections, and denies bloody noses. Cardiovascular: The patient denies chest pain, denies heart disease, NOTES (more content not included)... Normal [facility] CBC W/Diff, Automatedon 09-27 Absolute Lymph 2.20 X10 3/uL Normal 0.83-4.51 [facility] Comment on above: Performed By: #### L 100.0100, L500.4050 ####[facility] [address] [place], [address] Absolute Neut 5.7 X10 3/uL Normal 2.0-7.7 [facility] Comment on above: Performed By: #### L 100.0100, L500.4050 ####[facility] [address] [place], [address] Comprehensive Metabolic Prof ilon 10-20-2023 Albumin [Mass/Vol] 3.8 g/dL Normal 3.2-5.0 [facility] Comment on above: Performed By: #### L 100.0100, L500.4050 #### [facility] [address] [place], [address] Albumin/Globulin [Mass ratio] 1.1 {ratio} Normal 0.9-2.4 [facility] Comment on above: Performed By: #### L 100.0100, L500.4050 #### [facility] [address] [place], [address] ALK P 78 U/L Normal 45-117 [facility] Comment on above: Performed By: #### L 100.0100, L500.4050 #### [facility] [address] [place], [address] ALT [Catalytic activity/Vol] 32 U/L Normal 13-56 [facility] Comment on above: Performed By: #### L 100.0100, L500.4050 #### [facility] [address] [place], [address] AST [Catalytic activity/Vol] 28 U/L Normal 15-37 [facility] Comment on above: Performed By: #### L 100.0100, L500.4050 #### [facility] [address] [place], [address] Bilirubin [Mass/Vol] 0.30 mg/dL Normal 0.20-1.00 [facility] Comment on above: Result Comment: For patients on eltrombopag therapy, use of Dimension [place] TBIL is not recommended. Performed By: #### L 100.0100, L500.4050 #### [facility] [address] [place], [address] BUN/CRE 26.1 RATIO High 10-20 [facility] Comment on above: Performed By: #### L 100.0100, L500.4050 #### [facility] [address] [place], [address] CA,Total 9.0 mg/dL Normal 8.5-10.1 [facility] Comment on above: Performed By: #### L 100.0100, L500.4050 #### [facility] [address] [place], [address] Chloride [Moles/Vol] 99 mmol/L Normal 98-107 [facility] Comment on above: Performed By: #### L 100.0100, L500.4050 #### [facility] [address] [place], [address] CO2 [Moles/Vol] 27.0 mmol/L Normal 21.0-32.0 [facility] Comment on above: Performed By: #### L 100.0100, L500.4050 #### [facility] [address] [place], [address] Creatinine [Mass/Vol] 0.46 mg/dL Low 0.55-1.02 [facility] Comment on above: Result Comment: The validity of the calculated GFR GFRAA in patients over 70 years has not been determined. Clinical correlation is essential. Performed By: #### L 100.0100, L500.4050 #### [facility] [address] [place], [address] EST GFR - AA 178 mL/min Normal >60 [facility] Comment on above: Result Comment: Afri can [employer] GFR Calc Performed By: #### L 100.0100, L500.4050 #### [facility] [address] [place], [address] GAP 6 Normal 5-15 [facility] Comment on above: Performed By: #### L 100.0100, L500.4050 #### [facility] [address] [place], [address] GFR/1.73 sq M.predicted among non-blacks MDRD (S/P/Bld) [Vol rate/Area] 147 mL/min/{1.73_m2} Normal >60 [facility] Comment on above: Result Comment: Non- GFR Calc Performed By: #### L 100.0100, L500.4050 #### [facility] [address] [place], [address] Globulin (S) [Mass/Vol] 3.5 g/dL Normal 2.2-4.2 [facility] Comment on above: Performed By: #### L 100.0100, L500.4050 #### [facility] [address] [place], [address] Glucose [Mass/Vol] 86 mg/dL Normal 74-106 [facility] Comment on above: Performed By: #### L 100.0100, L500.4050 #### [facility] [address] [place], [address] Potassium [Moles/Vol] 3.9 mmol/L Normal 3.5-5.1 [facility] Comment on above: Performed By: #### L 100.0100, L500.4050 #### [facility] [address] [place], [address] Sodium [Moles/Vol] 132 mmol/L Low 136-145 [facility] Comment on above: Performed By: #### L 100.0100, L500.4050 #### [facility] [address] [place], [address] T PROT 7.3 g/dL Normal 6.4-8.2 [facility] Comment on above: Performed By: #### L 100.0100, L500.4050 #### [facility] [address] [place], [address] Urea nitrogen [Mass/Vol] 12 mg/dL Normal 7-18 [facility] Comment on above: Performed By: #### L 100.0100, L500.4050 #### [facility] [address] [place], [address] Basophil percentageOrdered B y: Bebe William on 07-05-2023 Chloride [Moles/Vol] 101 mmol/L 98-107 [facility] Glucose [Mass/Vol] 102 mg/dL 74-106 [facility] Comment on above: Fasting Glucose resu lt from 100 to 125 mg/dL suggests IMPAIRED HOMEOSTASIS per A.D.A. criteria. Potassium [Moles/Vol] 4.0 mmol/L 3.5-5.1 [facility] Sodium [Moles/Vol] 133 mmol/L 136-145 [facility] Laboratory - Chemistry and C hemistry - challengeOrdered By: Bebe William on 07-05-2023 CO2 [Moles/Vol] 28.0 mmol/L 21.0-32.0 [facility] Urea nitrogen/Creatinine [Mass ratio] 18.7 mg/mg 10- [facility] No Panel InformationOrdered By: Bebe William on 07-05-2023 Estimated GFR (MDRD) Amer 150 mL/min >60 [facility] Comment on above: GFR Calc Estimated GFR (MDRD) Non-Af Amer 124 mL/min >60 [facility] Comment on above: Non- GFR Calc Serum or plasma calcium marco urement (mass/volume)Ordered By: Bebe William on 07-05-2023 Calcium [Mass/Vol] 8.7 mg/dL 8.5-10.1 [facility] Serum or plasma creatinine m easurement (mass/volume)Ordered By: Bebe William on 07-05-2023 Creatinine [Mass/Vol] 0.54 mg/dL 0.55-1.02 [facility] Comment on above: The validity of the calculated GFR & GFRAA in patients over 70 years has not been determined. Clinical correlation is essential. Serum or plasma urea nitroge n measurement (mass/volume)Ordered By: Bebe William on 07-05-2023 Urea nitrogen [Mass/Vol] 10 mg/dL - [facility] Thin prep Papanicolaou smear with manual screeningOrdered By: Bebe William on 07-05-2023 Thin prep Papanicolaou smear with manual screening 4 5-15 [facility] Absolute lymphocyte countOrd ered By: Mary Ann Vazquez on 06-17-2023 Lymphocytes Auto (Unsp spec) [#/Vol] 2.37 10*3/uL 0.83-4.51 [facility] Automated lymphocyte count a s percentage of total leukocytesOrdered By: Mary Ann Vazquez on 06-17-2023 Lymphocytes/100 WBC Auto (Unsp spec) 31.0 % 19-41 [facility] Basophil percentageOrdered B y: Mary Ann Vazquez on 06-17-2023 Basophils/100 WBC (Bld) 0.5 % 0-1 [facility] Bilirubin [Mass/Vol] 0.50 mg/dL 0.20-1.00 [facility] Comment on above: For patients on eltr ombopag therapy, use of Dimension [place] TBIL is not recommended. Chloride [Moles/Vol] 95 mmol/L 98-107 [facility] Eosinophils/100 WBC (Bld) 1.3 % 0-5 [facility] Glucose [Mass/Vol] 93 mg/dL 74-106 [facility] Hemoglobin (Bld) [Mass/Vol] 12.7 g/dL 12.0-15.0 [facility] Monocytes/100 WBC (Bld) 7.1 % 0-10 [facility] Neutrophils (Bld) [#/Vol] 4.6 10*3/uL 2.0-7.7 [facility] Neutrophils/100 WBC (Bld) 59.6 % 47-70 [facility] Potassium [Moles/Vol] 4.0 mmol/L 3.5-5.1 [facility] Protein [Mass/Vol] 6.9 g/dL 6.4-8.2 [facility] Sodium [Moles/Vol] 129 mmol/L 136-145 [facility] WBC (Bld) [#/Vol] 7.6 10*3/uL 4.4-11.0 [facility] Determination of erythrocyte mean corpuscular volume (MCV)Ordered By: Mary Ann Vazquez on 06-17-2023 MCV (RBC) [Entitic vol] 97.6 fL 81-99 [facility] Erythrocyte distribution wid th ratioOrdered By: Mary Ann Vazquez on 06-17-2023 Erythrocyte distribution width (RBC) [Ratio] 11.9 % 11.6-14.6 [facility] Erythrocyte distribution wid th standard deviationOrdered By: [facility] on 06-17-2023 Erythrocyte distribution width (RBC) [Entitic vol] 43.0 fL 35.1-43.9 [facility] Hematocrit Auto (Bld) [Volum e fraction]Ordered By: Mary Ann Vazquez on 06-17-2023 Hematocrit (Bld) [Volume fraction] 36.5 % 37-47 [facility] Immature granulocytes/100 WB C Auto (Bld)Ordered By: [facility] on 06-17-2023 Immature granulocytes/100 WBC (Bld) 0.500 % 0.0-0.9 [facility] Comment on above: IG% - Immature Granu locytes (promyelocytes, myelocytes and metamyelocytes) > 1% indicates that a LEFT SHIFT is Present. Laboratory - Chemistry and C hemistry - challengeOrdered By: [facility] on 06-17-2023 Albumin/Globulin [Mass ratio] 1.2 {ratio} 0.9-2.4 [facility] ALP [Catalytic activity/Vol] 74 U/L 45-117 [facility] ALT [Catalytic activity/Vol] 28 U/L 13-56 [facility] CO2 [Moles/Vol] 27.0 mmol/L 21.0-32.0 [facility] Globulin (S) [Mass/Vol] 3.2 g/dL 2.2-4.2 [facility] Urea nitrogen/Creatinine [Mass ratio] 22.8 mg/mg 10-20 [facility] Laboratory - Hematology and Cell countsOrdered By: Mary Annjun Vazquez on 06-17-2023 MCH (RBC) [Entitic mass] 34.0 pg 27.0-32.0 [facility] MCHC (RBC) [Mass/Vol] 34.8 g/dL 32-36 [facility] Nucleated RBC/100 WBC (Bld) [Ratio] 0 % 0-5 [facility] Platelet mean volume (Bld) [Entitic vol] 9.3 fL 6.2-12.0 [facility] Platelets (Bld) [#/Vol] 314 10*3/uL 150-450 [facility] No Panel InformationOrdered By: Mary Ann Vazquez on 06-17-2023 Estimated GFR (MDRD) Amer 189 mL/min >60 [facility] Comment on above: GFR Calc Estimated GFR (MDRD) Non-Af Amer 156 mL/min >60 [facility] Comment on above: Non- GFR Calc RBC Auto (Bld) [#/Vol]Ordere d By: Mary Ann Vazquez on 06-17-2023 RBC (Bld) [#/Vol] 3.74 10*6/uL 4.2-5.4 [facility] Serum or plasma calcium marco urement (mass/volume)Ordered By: Mary Ann Vazquez on 06-17-2023 Calcium [Mass/Vol] 8.5 mg/dL 8.5-10.1 [facility] Serum or plasma creatinine m easurement (mass/volume)Ordered By: Mary Ann Vazquez on 06-17-2023 Creatinine [Mass/Vol] 0.44 mg/dL 0.55-1.02 [facility] Comment on above: The validity of the calculated GFR & GFRAA in patients over 70 years has not been determined. Clinical correlation is essential. Serum or plasma urea nitroge n measurement (mass/volume)Ordered By: Mary Ann Vazquez on 06-17-2023 Urea nitrogen [Mass/Vol] 10 mg/dL 7-18 [facility] Thin prep Papanicolaou smear with manual screeningOrdered By: Mary Ann Vazquez on 06-17-2023 Thin prep Papanicolaou smear with manual screening 3.7 g/dL 3.2-5.0 [facility] Thin prep Papanicolaou smear with manual screening 24 U/L 15-37 [facility] Thin prep Papanicolaou smear with manual screening 7 5-15 [facility] Absolute lymphocyte countOrd ered By: Mary Ann Vazquez on 01-23-2023 Lymphocytes Auto (Unsp spec) [#/Vol] 2.10 10*3/uL 0.83-4.51 [facility] Basophil percentageOrdered B y: Mary Ann Vazquez on 01-23-2023 Basophils/100 WBC (Bld) 0.4 % 0-1 [facility] Bilirubin [Mass/Vol] 0.20 mg/dL 0.20-1.00 [facility] Comment on above: For patients on eltr ombopag therapy, use of Dimension [place] TBIL is not recommended. Chloride [Moles/Vol] 97 mmol/L 98-107 [facility] Eosinophils/100 WBC (Bld) 1.2 % 0-5 [facility] Glucose [Mass/Vol] 90 mg/dL 74-106 [facility] Neutrophils (Bld) [#/Vol] 4.9 10*3/uL 2.0-7.7 [facility] Neutrophils/100 WBC (Bld) 64.5 % 47-70 [facility] Potassium [Moles/Vol] 3.6 mmol/L 3.5-5.1 [facility] Protein [Mass/Vol] 6.6 g/dL 6.4-8.2 [facility] Sodium [Moles/Vol] 131 mmol/L 136-145 [facility] WBC (Bld) [#/Vol] 7.6 10*3/uL 4.4-11.0 [facility] Blood erythrocytes count (nu mber/volume)Ordered By: Mary Ann Vazquez on 01-23-2023 RBC (Bld) [#/Vol] 3.93 10*6/uL 4.2-5.4 [facility] Blood hemoglobin measurement (mass/volume)Ordered By: Mary Ann Vazquez on 01-23-2023 Hemoglobin (Bld) [Mass/Vol] 13.4 g/dL 12.0-15.0 [facility] Blood lymphocytes/100 leukoc ytesOrdered By: Mary Ann Vazquez on 01-23-2023 Lymphocytes/100 WBC (Bld) 27.7 % 19-41 [facility] Blood monocytes/100 leukocyt esOrdered By: Mary Ann Vazquez on 01-23-2023 Monocytes/100 WBC (Bld) 5.8 % 0-10 [facility] Blood platelet mean volumeOr dered By: Mary Ann Vazquez on 01-23-2023 Platelet mean volume (Bld) [Entitic vol] 9.4 fL 6.2-12.0 [facility] Determination of erythrocyte mean corpuscular volume (MCV)Ordered By: Mary Ann Vazquez on 01-23-2023 MCV (RBC) [Entitic vol] 98.2 fL 81-99 [facility] Hematocrit Auto (Bld) [Volum e fraction]Ordered By: Mary Ann Vazquez on 01-23-2023 Hematocrit (Bld) [Volume fraction] 38.6 % 37-47 [facility] Laboratory - Chemistry and C hemistry - challengeOrdered By: Mary Annjun Vazquez on 01-23-2023 ALP [Catalytic activity/Vol] 79 U/L 45-117 [facility] ALT [Catalytic activity/Vol] 37 U/L 13-56 [facility] CO2 [Moles/Vol] 27.0 mmol/L 21.0-32.0 [facility] Globulin (S) [Mass/Vol] 2.9 g/dL 2.2-4.2 [facility] Urea nitrogen/Creatinine [Mass ratio] 19.7 mg/mg 10-20 [facility] Laboratory - Hematology and Cell countsOrdered By: [facility] on 01-23-2023 Erythrocyte distribution width (RBC) [Entitic vol] 45.3 fL 35.1-43.9 [facility] Erythrocyte distribution width (RBC) [Ratio] 12.5 % 11.6-14.6 [facility] Immature granulocytes/100 WBC (Bld) 0.400 % 0.0-0.9 [facility] Comment on above: IG% - Immature Granu locytes (promyelocytes, myelocytes and metamyelocytes) > 1% indicates that a LEFT SHIFT is Present. MCH (RBC) [Entitic mass] 34.1 pg 27.0-32.0 [facility] Nucleated RBC/100 WBC (Bld) [Ratio] 0 % 0-5 [facility] MCHC Auto (RBC) [Mass/Vol]Or dered By: Mary Annjun Vazquez on 01-23-2023 MCHC (RBC) [Mass/Vol] 34.7 g/dL 32-36 [facility] No Panel InformationOrdered By: Mary Ann Vazquez on 01-23-2023 Estimated GFR (MDRD) Amer 206 mL/min >60 [facility] Comment on above: GFR Calc Estimated GFR (MDRD) Non-Af Amer 170 mL/min >60 [facility] Comment on above: Non- GFR Calc Platelets bldOrdered By: Wilner Vazquez on 01-23-2023 Platelets (Bld) [#/Vol] 338 10*3/uL 150-450 [facility] Serum or plasma albumin marco urement (mass/volume)Ordered By: Mary Ann Vazquez on 01-23-2023 Albumin [Mass/Vol] 3.7 g/dL 3.2-5.0 [facility] Serum or plasma albumin/glob ulin mass ratioOrdered By: Mary Ann Vazquez on 01-23-2023 Albumin/Globulin [Mass ratio] 1.3 {ratio} 0.9-2.4 [facility] Serum or plasma calcium marco urement (mass/volume)Ordered By: Mary Ann Vazquez on 01-23-2023 Calcium [Mass/Vol] 8.8 mg/dL 8.5-10.1 [facility] Serum or plasma creatinine m easurement (mass/volume)Ordered By: Mary Ann Vazquez on 01-23-2023 Creatinine [Mass/Vol] 0.41 mg/dL 0.55-1.02 [facility] Comment on above: The validity of the calculated GFR & GFRAA in patients over 70 years has not been determined. Clinical correlation is essential. Serum or plasma urea nitroge n measurement (mass/volume)Ordered By: Mary Ann Vazquez on 01-23-2023 Urea nitrogen [Mass/Vol] 8 mg/dL 7-18 [facility] Thin prep Papanicolaou smear with manual screeningOrdered By: Mary Ann Vazquez on 01-23-2023 Thin prep Papanicolaou smear with manual screening 27 U/L 15-37 [facility] Thin prep Papanicolaou smear with manual screening 7 5-15 [facility] DBT Breast - bilateral diagn osticon 12-06-2022 Patient Name: REYMUNDO BLANKENSHIP : 1965 Exam Date/Time: 12/06/2022 13:30 Procedure: BI MAMMOGRAM DIAGNOSTIC TOMOSYNTHESIS BILATERAL Ordering Provider: MARHKAM ELIZABETH Reason For Exam: f/u duct ectasia COMPARISONS: 2022; 2021; 2020 MAMMOGRAM: Image views: 2D CC and MLO views were acquired. 3D CC and MLO views were acquired. Markings on images: BB's = Nipples; skin lesions Open [place] = Palpable Line = Scar TISSUE DENSITY: BIRADS B - There are [...] benign change. No further follow-up is needed. [facility] Sai Harvey MD - 12/06/2022 Patient Name: REYMUNDO BLANKENSHIP : 1965 Exam Date/Time: 12/06/2022 13:30 Procedure: BI MAMMOGRAM DIAGNOSTIC TOMOSYNTHESIS BILATERAL Ordering Provider: MARKHAM ELIZABETH Reason For Exam: f/u duct ectasia COMPARISONS: 2022; 2021; 2020 MAMMOGRAM: Image views: 2D CC and MLO views were acquired. 3D CC and MLO views were acquired. Markings on images: BB's = Nipples; skin lesions Open [place] = Palpable Line = Scar TISSUE DENSITY: BIRADS B - There are [...] Benign RECOMMENDATION: Return to normal screening Bilateral CANCER RISK ASSESSMENT: This risk assessment is based on patient provided information collected in a risk survey taken at the time of this examination. LIFETIME BREAST CANCER RISK: Tyrer-Cuzick: 13.42 % - If greater than or equal to 20%, consider annual mammogram and annual screening Breast MRI or follow up in high risk clinic. Is the patient at elevated risk based on the HBOC criteria? NCCN HBOC Guidelines: 100 % (Hereditary Breast and Ovarian Cancer) - If 100%, consider genetic counseling and testing with high risk follow up. Is the patient at elevated risk based on the Linda Syndrome criteria? NCCN Linda: 100 % - If 100%, consider genetic counseling and testing with high risk follow up. Report Dictated on Electronically Signed By: Sai Harvey MD Electronically Signed Date/Time: 12/06/2022 1:48 PM EDT [facility] Study observation (narrative) [facility] No Panel Informationon 12-06 Interval decrease in ductal dilatation and internal echoes which are consistent with benign debris. There is no mammographic or targeted sonographic evidence of malignancy. The patient may resume routine annual screening mammography. ASSESSMENT: Category 2 Benign RECOMMENDATION: Return to normal screening Bilateral CANCER RISK ASSESSMENT: This risk assessment is based on patient provided information collected in a risk survey taken at the time of this examination. LIFETIME BREAST CANCER RISK: Tyrer-Cuzick: 13.42 % - If greater than or equal to 20%, consider annual mammogram and annual screening Breast MRI or follow up in high risk clinic. Is the patient at elevated risk based on the HBOC criteria? NCCN HBOC Guidelines: 100 % (Hereditary Breast and Ovarian Cancer) - If 100%, consider genetic counseling and testing with high risk follow up. Is the patient at elevated risk based on the Linda Syndrome criteria? NCCN Linda: 100 % - If 100%, consider genetic counseling and testing with high risk follow up. Report Dictated on Electronically Signed By: Sai Harvey MD Electronically Signed Date/Time: 12/06/2022 1:48 PM EDT [facility] No Panel InformationOrdered By: Sai Harvey on 12-06-2022 [facility] [employer] Phone: US Breast - left limitedon 0 12-06-2022 Patient Name: REYMUNDO BLANKENSHIP : 1965 Exam Date/Time: 12/06/2022 13:38 Procedure: BI US BREAST LIMITED LEFT Ordering Provider: MARKHAM ELIZABETH Reason For Exam: f/u duct ectasia COMPARISONS: 2022; 2021; 2020 MAMMOGRAM: Image views: 2D CC and MLO views were acquired. 3D CC and MLO views were acquired. Markings on images: BB's = Nipples; skin lesions Open [place] = Palpable Line = Scar TISSUE DENSITY: BIRADS B - There are [...] benign change. No further follow-up is needed. [facility] Sai Harvey MD - 12/06/2022 Patient Name: REYMUNDO BLANKENSHIP : 1965 Exam Date/Time: 12/06/2022 13:38 Procedure: BI US BREAST LIMITED LEFT Ordering Provider: MARKHAM ELIZABETH Reason For Exam: f/u duct ectasia COMPARISONS: 2022; 2021; 2020 MAMMOGRAM: Image views: 2D CC and MLO views were acquired. 3D CC and MLO views were acquired. Markings on images: BB's = Nipples; skin lesions Open [place] = Palpable Line = Scar TISSUE DENSITY: BIRADS B - There are [...] Benign RECOMMENDATION: Return to normal screening Bilateral CANCER RISK ASSESSMENT: This risk assessment is based on patient provided information collected in a risk survey taken at the time of this examination. LIFETIME BREAST CANCER RISK: [place]ella[place]-P[place]ick: 13.42 % - If greater than or equal to 20%, consider annual mammogram and annual screening Breast MRI or follow up in high risk clinic. Is the patient at elevated risk based on the HBOC criteria? NCCN HBOC Guidelines: 100 % (Hereditary Breast and Ovarian Cancer) - If 100%, consider genetic counseling and testing with high risk follow up. Is the patient at elevated risk based on the Linda Syndrome criteria? NCCN Linda: 100 % - If 100%, consider genetic counseling and testing with high risk follow up. Report Dictated on Electronically Signed By: Sai Harvey MD Electronically Signed Date/Time: 12/06/2022 1:48 PM EDT [facility] Rad[facility] Study observation (narrative) [facility] MR Breast - bilateral WO and W contrast Rogelio 11-12-2022 No MRI evidence of malignancy in either breast. T2 hyperintense nonenhancing dilated ducts are seen in the left subareolar region corresponding to previously described ultrasound findings. Continued short-term ultrasound follow-up is recommended. ASSESSMENT: Category 2 Benign RECOMMENDATION: Breast MRI in 1 year Bilateral Recommendation for short-term follow-up ultrasound in November 2022 still stands. Report Dictated on Electronically Signed By: Lino Loco MD Electronically Signed Date/Time: 11/12/2022 2:39 PM EDT [facility] Patient Name: REYMUNDO BLANKENSHIP : 1965 Exam Date/Time: 11/12/2022 13:36 Procedure: BI MR FAST BREAST BILATERAL W AND WO CONTRAST Ordering Provider: MARKHAM ELIZABETH Reason For Exam: MRI TECHNIQUE: Clinical Indication: Breast MRI Screening - High-risk baseline. Elevated lifetime risk. Contrast: Gadavist 6.5 mL, IV. Bilateral breast MRI was performed with a dedicated breast coil. Fat saturated T2 weighted, T1 weighted axial images and fat saturated T1 axial of both breasts were obtained. Dynamic pre-and post contrast axial image sets were obtained of both breasts. Subtraction images were generated and the study was evaluated in conjunction with CAD. The patient's prior imaging was reviewed. FINDINGS: There is mild bilateral background enhancement. There are T2 hyperintense nonenhancing dilated ducts in the subareolar region bilaterally. Right Breast: There is no suspicious mass or non-mass enhancement in the right breast. Left Breast: There is no suspicious mass or non-mass enhancement in the left breast. Other: No axillary or internal mammary lymphadenopathy is appreciated. [facility] Lino Loco MD - 11/12/2022 Patient Name: REYMUNDO BLANKENSHIP : 1965 Exam Date/Time: 11/12/2022 13:36 Procedure: BI MR FAST BREAST BILATERAL W AND WO CONTRAST Ordering Provider: MARKHAM ELIZABETH Reason For Exam: MRI TECHNIQUE: Clinical Indication: Breast MRI Screening - High-risk baseline. Elevated lifetime risk. Contrast: Gadavist 6.5 mL, IV. Bilateral breast MRI was performed with a dedicated breast coil. Fat saturated T2 weighted, T1 weighted axial images and fat saturated T1 axial of both breasts were obtained. Dynamic pre-and post contrast axial image sets were obtained of both breasts. Subtraction images were generated and the study was evaluated in conjunction with CAD. The patient's prior imaging was reviewed. FINDINGS: There is mild bilateral background enhancement. [...] RECOMMENDATION: Breast MRI in 1 year Bilateral Recommendation for short-term follow-up ultrasound in November 2022 still stands. Report Dictated on Electronically Signed By: Lino Loco MD Electronically Signed Date/Time: 11/12/2022 2:39 PM EDT [facility] Study observation (narrative) [facility] MR Breast - bilateral WO and W contrast IVOrdered By: Lino Loco on 11-12-2022 [facility] Work Phone: Absolute lymphocyte countOrd ered By: Mary Ann Vazquez on 11-02-2022 Lymphocytes Auto (Unsp spec) [#/Vol] 1.26 10*3/uL 0.83-4.51 [facility] Basophil percentageOrdered B y: Mary Ann Vazquez on 11-02-2022 Basophils/100 WBC (Bld) 0.7 % 0-1 [facility] Eosinophils/100 WBC (Bld) 0.9 % 0-5 [facility] Neutrophils (Bld) [#/Vol] 4.0 10*3/uL 2.0-7.7 [facility] Neutrophils/100 WBC (Bld) 68.7 % 47-70 [facility] WBC (Bld) [#/Vol] 5.8 10*3/uL 4.4-11.0 [facility] Bilirubin [Mass/Vol] 0.20 mg/dL 0.20-1.00 [facility] Comment on above: For patients on eltr ombopag therapy, use of Dimension [place] TBIL is not recommended. Chloride [Moles/Vol] 105 mmol/L 98-[address] [facility] Cholesterol [Mass/Vol] 182 mg/dL <200 [facility] Comment on above: <200 mg/dL Desirable 200-240 mg/dL Borderline >240 mg/dL High Risk Glucose [Mass/Vol] 97 mg/dL 74-106 [facility] Potassium [Moles/Vol] 4.3 mmol/L 3.5-5.1 [facility] Protein [Mass/Vol] 7.4 g/dL 6.4-8.2 [facility] Sodium [Moles/Vol] 136 mmol/L 136-145 [facility] Triglyceride [Mass/Vol] 62 mg/dL <199 [facility] Comment on above: The drugs N-Acetylcy steine and Metamizole may falsely depress this assay.Serum Triglycerides Reference Interval Normal <150 mg/dL Borderline high 150 - 199 mg/dL High 200 - 499 mg/dL Very High > or = 500 mg/dL Blood erythrocytes count (nu mber/volume)Ordered By: Mary Ann Vazquez on 11-02-2022 RBC (Bld) [#/Vol] 4.13 10*6/uL 4.2-5.4 [facility] Blood hemoglobin measurement (mass/volume)Ordered By: Mary Ann Vazquez on 11-02-2022 Hemoglobin (Bld) [Mass/Vol] 13.7 g/dL 12.0-15.0 [facility] Blood lymphocytes/100 leukoc ytesOrdered By: Mary Ann Vazquez on 11-02-2022 Lymphocytes/100 WBC (Bld) 21.9 % 19-41 [facility] Blood monocytes/100 leukocyt esOrdered By: Mary Ann Vazquez on 11-02-2022 Monocytes/100 WBC (Bld) 7.3 % 0-10 [facility] Blood platelet mean volumeOr dered By: Mary Ann Vazquez on 11-02-2022 Platelet mean volume (Bld) [Entitic vol] 9.1 fL 6.2-12.0 [facility] Determination of erythrocyte mean corpuscular volume (MCV)Ordered By: Mary Ann Vazquez on 11-02-2022 MCV (RBC) [Entitic vol] 99.3 fL 81-99 [facility] Hematocrit Auto (Bld) [Volum e fraction]Ordered By: Mary Ann Vazquez on 11-02-2022 Hematocrit (Bld) [Volume fraction] 41.0 % 37-47 [facility] Laboratory - Chemistry and C hemistry - challengeOrdered By: Mary Ann Vazquez on 11-02-2022 ALP [Catalytic activity/Vol] 103 U/L 45-117 [facility] ALT [Catalytic activity/Vol] 38 U/L 13-56 [facility] CO2 [Moles/Vol] 27.0 mmol/L 21.0-32.0 [facility] Globulin (S) [Mass/Vol] 3.9 g/dL 2.2-4.2 [facility] Urea nitrogen/Creatinine [Mass ratio] 19.3 mg/mg 10-20 [facility] Laboratory - Hematology and Cell countsOrdered By: Mary Ann Vazquez on 11-02-2022 Erythrocyte distribution width (RBC) [Entitic vol] 45.7 fL 35.1-43.9 [facility] Erythrocyte distribution width (RBC) [Ratio] 12.6 % 11.6-14.6 [facility] Immature granulocytes/100 WBC (Bld) 0.500 % 0.0-0.9 [facility] Comment on above: IG% - Immature Granu locytes (promyelocytes, myelocytes and metamyelocytes) > 1% indicates that a LEFT SHIFT is Present. MCH (RBC) [Entitic mass] 33.2 pg 27.0-32.0 [facility] Nucleated RBC/100 WBC (Bld) [Ratio] 0 % 0-5 [facility] MCHC Auto (RBC) [Mass/Vol]Or dered By: Mary Ann Vazquez on 11-02-2022 MCHC (RBC) [Mass/Vol] 33.4 g/dL 32-36 [facility] No Panel InformationOrdered By: Mary Ann Vazquez on 11-02-2022 Estimated GFR (MDRD) Amer 140 mL/min >60 [facility] Comment on above: GFR Calc Estimated GFR (MDRD) Non-Af Amer 116 mL/min >60 [facility] Comment on above: Non- GFR Calc Platelets bldOrdered By: Wilner Vazquez on 11-02-2022 Platelets (Bld) [#/Vol] 314 10*3/uL 150-450 [facility] Serum or plasma albumin marco urement (mass/volume)Ordered By: Mary Ann Vazquez on 11-02-2022 Albumin [Mass/Vol] 3.5 g/dL 3.2-5.0 [facility] Serum or plasma albumin/glob ulin mass ratioOrdered By: Mary Ann Vazquez on 11-02-2022 Albumin/Globulin [Mass ratio] 0.9 {ratio} 0.9-2.4 [facility] Serum or plasma calcium marco urement (mass/volume)Ordered By: Mary Ann Vazquez on 11-02-2022 Calcium [Mass/Vol] 8.5 mg/dL 8.5-10.1 [facility] Serum or plasma cholesterol in HDL measurement (mass/volume)Ordered By: Mary Ann Vazquez on 11-02-2022 Cholesterol in HDL [Mass/Vol] 77 mg/dL >40 [facility] Comment on above: The drugs N-Acetylcy steine and Metamizole may falsely depress this assay. Reference Range HDL <40 mg/dL Low HDL Cholesterol HDL >or= 60 mg/dL High HDL Cholesterol Serum or plasma cholesterol in VLDL measurement (mass/volume)Ordered By: Mary Ann Vazquez on 11-02-2022 Cholesterol in VLDL [Mass/Vol] 12 mg/dL 5-40 [facility] Serum or plasma creatinine m easurement (mass/volume)Ordered By: Mary Ann Vazquez on 11-02-2022 Creatinine [Mass/Vol] 0.57 mg/dL 0.55-1.02 [facility] Comment on above: The validity of the calculated GFR & GFRAA in patients over 70 years has not been determined. Clinical correlation is essential. Serum or plasma low density lipoprotein (LDL) cholesterol measurement (mass/volume)Ordered By: Mary Ann Vazquez on 11-02-2022 Cholesterol in LDL [Mass/Vol] 93 mg/dL 0-130 [facility] Serum or plasma urea nitroge n measurement (mass/volume)Ordered By: Mary Ann Vazquez on 11-02-2022 Urea nitrogen [Mass/Vol] 11 mg/dL 7-18 [facility] Thin prep Papanicolaou smear with manual screeningOrdered By: Mary Ann Vazquez on 11-02-2022 Thin prep Papanicolaou smear with manual screening 25 U/L 15-37 [facility] Thin prep Papanicolaou smear with manual screening 4 5-15 [facility] Basophil percentageOrdered B y: Bebe William on 09-09-2022 Bilirubin [Mass/Vol] 0.30 mg/dL 0.20-1.00 [facility] Comment on above: For patients on eltr ombopag therapy, use of Dimension [place] TBIL is not recommended. Chloride [Moles/Vol] 101 mmol/L 98-107 [facility] Glucose [Mass/Vol] 92 mg/dL 74-106 [facility] Potassium [Moles/Vol] 3.6 mmol/L 3.5-5.1 [facility] Protein [Mass/Vol] 7.3 g/dL 6.4-8.2 [facility] Sodium [Moles/Vol] 136 mmol/L 136-145 [facility] Laboratory - Chemistry and C hemistry - challengeOrdered By: Bebe William on 09-09-2022 ALP [Catalytic activity/Vol] 96 U/L 45-117 [facility] ALT [Catalytic activity/Vol] 47 U/L 13-56 [facility] CO2 [Moles/Vol] 27.0 mmol/L 21.0-32.0 [facility] Globulin (S) [Mass/Vol] 3.8 g/dL 2.2-4.2 [facility] Urea nitrogen/Creatinine [Mass ratio] 19.2 mg/mg 10-20 [facility] No Panel InformationOrdered By: Bebe William on 09-09-2022 Estimated GFR (MDRD) Amer 139 mL/min >60 [facility] Comment on above: GFR Calc Estimated GFR (MDRD) Non-Af Amer 115 mL/min >60 [facility] Comment on above: Non- GFR Calc Vitamin D 25-Hydroxy 31.3 ng/mL [facility] Comment on above: Vitamin D 25(OH) Sta tus Range Deficiency <20 ng/mL (50nmol/L) Insufficiency 20 - 30 ng/mL (50 - 75 nmol/L) Sufficiency 30 - 100 ng/mL (75 - 250 nmol/L) Toxicity >100 ng/mL (>250 nmol/L) Serum or plasma albumin marco urement (mass/volume)Ordered By: Bebe William on 09-09-2022 Albumin [Mass/Vol] 3.5 g/dL 3.2-5.0 [facility] Serum or plasma albumin/glob ulin mass ratioOrdered By: Bebe William on 09-09-2022 Albumin/Globulin [Mass ratio] 0.9 {ratio} 0.9-2.4 [facility] Serum or plasma calcium marco urement (mass/volume)Ordered By: Bebe William on 09-09-2022 Calcium [Mass/Vol] 8.8 mg/dL 8.5-10.1 [facility] Serum or plasma creatinine m easurement (mass/volume)Ordered By: Bebe William on 09-09-2022 Creatinine [Mass/Vol] 0.57 mg/dL 0.55-1.02 [facility] Comment on above: The validity of the calculated GFR & GFRAA in patients over 70 years has not been determined. Clinical correlation is essential. Serum or plasma urea nitroge n measurement (mass/volume)Ordered By: Bebe William on 09-09-2022 Urea nitrogen [Mass/Vol] 11 mg/dL 7-18 [facility] Thin prep Papanicolaou smear with manual screeningOrdered By: Bebe William on 09-09-2022 Thin prep Papanicolaou smear with manual screening 31 U/L 15-37 [facility] Thin prep Papanicolaou smear with manual screening 8 5-15 [facility] Whole blood hemoglobin A1c/t otal hemoglobin ratio (mass fraction)Ordered By: Bebe William on 09-09-2022 HbA1c (Bld) [Mass fraction] 5.8 % 3.8-5.6 [facility] Comment on above: Normal < 5.7 % Predi abetic 5.7 - 6.4 % Diabetic >or= 6.5 % Please note range changes. Absolute lymphocyte countOrd ered By: Dr. Vazquez on 08-28-2022 Lymphocytes Auto (Unsp spec) [#/Vol] 2.76 10*3/uL 0.83-4.51 [facility] Basophil percentageOrdered B y: Dr. Vazquez on 08-28-2022 Basophils/100 WBC (Bld) 0.4 % 0-1 [facility] Bilirubin [Mass/Vol] 0.20 mg/dL 0.20-1.00 [facility] Comment on above: For patients on eltr ombopag therapy, use of Dimension [place] TBIL is not recommended. Chloride [Moles/Vol] 100 mmol/L 98-107 [facility] Eosinophils/100 WBC (Bld) 0.5 % 0-5 [facility] Glucose [Mass/Vol] 126 mg/dL 74-106 [facility] Comment on above: Fasting Glucose resu lt greater than or equal to 126 mg/dL suggests DIABETES MELLITUS per A.D.A. criteria. Neutrophils (Bld) [#/Vol] 6.6 10*3/uL 2.0-7.7 [facility] Neutrophils/100 WBC (Bld) 66.9 % 47-70 [facility] Potassium [Moles/Vol] 3.2 mmol/L 3.5-5.1 [facility] Protein [Mass/Vol] 7.2 g/dL 6.4-8.2 [facility] Sodium [Moles/Vol] 136 mmol/L 136-145 [facility] WBC (Bld) [#/Vol] 9.9 10*3/uL 4.4-11.0 [facility] Blood erythrocytes count (nu mber/volume)Ordered By: Dr. Vazquez on 08-28-2022 RBC (Bld) [#/Vol] 4.19 10*6/uL 4.2-5.4 [facility] Blood hemoglobin measurement (mass/volume)Ordered By: Dr. Vazquez on 08-28-2022 Hemoglobin (Bld) [Mass/Vol] 13.7 g/dL 12.0-15.0 [facility] Blood lymphocytes/100 leukoc ytesOrdered By: Dr. Vazquez on 08-28-2022 Lymphocytes/100 WBC (Bld) 28.0 % 19-41 [facility] Blood monocytes/100 leukocyt esOrdered By: Dr. Vazquez on 08-28-2022 Monocytes/100 WBC (Bld) 3.7 % 0-10 [facility] Blood platelet mean volumeOr dered By: Dr. Vazquez on 08-28-2022 Platelet mean volume (Bld) [Entitic vol] 9.5 fL 6.2-12.0 [facility] Determination of erythrocyte mean corpuscular volume (MCV)Ordered By: Dr. Vazquez on 08-28-2022 MCV (RBC) [Entitic vol] 97.6 fL 81-99 [facility] Hematocrit Auto (Bld) [Volum e fraction]Ordered By: Dr. Vazquez on 08-28-2022 Hematocrit (Bld) [Volume fraction] 40.9 % 37-47 [facility] Laboratory - Chemistry and C hemistry - challengeOrdered By: Dr. Vazquez on 08-28-2022 ALP [Catalytic activity/Vol] 104 U/L 45-117 [facility] ALT [Catalytic activity/Vol] 34 U/L 13-56 [facility] CO2 [Moles/Vol] 27.0 mmol/L 21.0-32.0 [facility] Globulin (S) [Mass/Vol] 3.5 g/dL 2.2-4.2 [facility] Urea nitrogen/Creatinine [Mass ratio] 15.8 mg/mg 10-20 [facility] Laboratory - Hematology and Cell countsOrdered By: Dr. Vazquez on 08-28-2022 Erythrocyte distribution width (RBC) [Entitic vol] 45.6 fL 35.1-43.9 [facility] Erythrocyte distribution width (RBC) [Ratio] 12.8 % 11.6-14.6 [facility] Immature granulocytes/100 WBC (Bld) 0.500 % 0.0-0.9 [facility] Comment on above: IG% - Immature Granu locytes (promyelocytes, myelocytes and metamyelocytes) > 1% indicates that a LEFT SHIFT is Present. MCH (RBC) [Entitic mass] 32.7 pg 27.0-32.0 [facility] Nucleated RBC/100 WBC (Bld) [Ratio] 0 % 0-5 [facility] MCHC Auto (RBC) [Mass/Vol]Or dered By: Dr. Vazquez on 08-28-2022 MCHC (RBC) [Mass/Vol] 33.5 g/dL 32-36 [facility] No Panel InformationOrdered By: Dr. Vazquez on 08-28-2022 Estimated GFR (MDRD) Amer 124 mL/min >60 [facility] Comment on above: GFR Calc Estimated GFR (MDRD) Non-Af Amer 103 mL/min >60 [facility] Comment on above: Non- GFR Calc Platelets bldOrdered By: Dr. Vazquez on 08-28-2022 Platelets (Bld) [#/Vol] 326 10*3/uL 150-450 [facility] Serum or plasma albumin marco urement (mass/volume)Ordered By: Dr. Vazquez on 08-28-2022 Albumin [Mass/Vol] 3.7 g/dL 3.2-5.0 [facility] Serum or plasma albumin/glob ulin mass ratioOrdered By: Dr. Vazquez on 08-28-2022 Albumin/Globulin [Mass ratio] 1.1 {ratio} 0.9-2.4 [facility] Serum or plasma calcium marco urement (mass/volume)Ordered By: Dr. Vazquez on 08-28-2022 Calcium [Mass/Vol] 9.4 mg/dL 8.5-10.1 [facility] Serum or plasma creatinine m easurement (mass/volume)Ordered By: Dr. Vazquez on 08-28-2022 Creatinine [Mass/Vol] 0.63 mg/dL 0.55-1.02 [facility] Comment on above: The validity of the calculated GFR & GFRAA in patients over 70 years has not been determined. Clinical correlation is essential. Serum or plasma urea nitroge n measurement (mass/volume)Ordered By: Dr. Vazquez on 08-28-2022 Urea nitrogen [Mass/Vol] 10 mg/dL 7-18 [facility] Thin prep Papanicolaou smear with manual screeningOrdered By: Dr. Vazquez on 08-28-2022 Thin prep Papanicolaou smear with manual screening 26 U/L 15-37 [facility] Thin prep Papanicolaou smear with manual screening 9 5-15 [facility] Absolute lymphocyte countOrd ered By: Dr. Vazquez on 07-09-2022 Lymphocytes Auto (Unsp spec) [#/Vol] 1.65 10*3/uL 0.83-4.51 [facility] Basophil percentageOrdered B y: Dr. Vazquez on 07-09-2022 Basophils/100 WBC (Bld) 0.7 % 0-1 [facility] Bilirubin [Mass/Vol] 0.20 mg/dL 0.20-1.00 [facility] Comment on above: For patients on eltr ombopag therapy, use of Dimension [place] TBIL is not recommended. Chloride [Moles/Vol] 102 mmol/L 98-107 [facility] Eosinophils/100 WBC (Bld) 0.5 % 0-5 [facility] Glucose [Mass/Vol] 117 mg/dL 74-106 [facility] Comment on above: Fasting Glucose resu lt from 100 to 125 mg/dL suggests IMPAIRED HOMEOSTASIS per A.D.A. criteria. Neutrophils (Bld) [#/Vol] 3.5 10*3/uL 2.0-7.7 [facility] Neutrophils/100 WBC (Bld) 63.2 % 47-70 [facility] Potassium [Moles/Vol] 4.1 mmol/L 3.5-5.1 [facility] Protein [Mass/Vol] 7.3 g/dL 6.4-8.2 [facility] Sodium [Moles/Vol] 136 mmol/L 136-145 [facility] WBC (Bld) [#/Vol] 5.6 10*3/uL 4.4-11.0 [facility] Blood erythrocytes count (nu mber/volume)Ordered By: Dr. Vazquez on 07-09-2022 RBC (Bld) [#/Vol] 4.13 10*6/uL 4.2-5.4 [facility] Blood hemoglobin measurement (mass/volume)Ordered By: Dr. Vazquez on 07-09-2022 Hemoglobin (Bld) [Mass/Vol] 13.3 g/dL 12.0-15.0 [facility] Blood lymphocytes/100 leukoc ytesOrdered By: Dr. Vazquez on 07-09-2022 Lymphocytes/100 WBC (Bld) 29.5 % 19-41 [facility] Blood monocytes/100 leukocyt esOrdered By: Dr. Vazquez on 07-09-2022 Monocytes/100 WBC (Bld) 5.9 % 0-10 [facility] Blood platelet mean volumeOr dered By: Dr. Vazquez on 07-09-2022 Platelet mean volume (Bld) [Entitic vol] 9.1 fL 6.2-12.0 [facility] Determination of erythrocyte mean corpuscular volume (MCV)Ordered By: Dr. Vazquez on 07-09-2022 MCV (RBC) [Entitic vol] 97.3 fL 81-99 [facility] Hematocrit Auto (Bld) [Volum e fraction]Ordered By: Dr. Vazquez on 07-09-2022 Hematocrit (Bld) [Volume fraction] 40.2 % 37-47 [facility] Laboratory - Chemistry and C hemistry - challengeOrdered By: Dr. Vazquez on 07-09-2022 ALP [Catalytic activity/Vol] 104 U/L 45-117 [facility] ALT [Catalytic activity/Vol] 32 U/L 13-56 [facility] CO2 [Moles/Vol] 27.0 mmol/L 21.0-32.0 [facility] Globulin (S) [Mass/Vol] 3.6 g/dL 2.2-4.2 [facility] Urea nitrogen/Creatinine [Mass ratio] 21.2 mg/mg 10-20 [facility] Laboratory - Hematology and Cell countsOrdered By: Dr. Vazquez on 07-09-2022 Erythrocyte distribution width (RBC) [Entitic vol] 44.1 fL 35.1-43.9 [facility] Erythrocyte distribution width (RBC) [Ratio] 12.3 % 11.6-14.6 [facility] Immature granulocytes/100 WBC (Bld) 0.200 % 0.0-0.9 [facility] Comment on above: IG% - Immature Granu locytes (promyelocytes, myelocytes and metamyelocytes) > 1% indicates that a LEFT SHIFT is Present. MCH (RBC) [Entitic mass] 32.2 pg 27.0-32.0 [facility] Nucleated RBC/100 WBC (Bld) [Ratio] 0 % 0-5 [facility] MCHC Auto (RBC) [Mass/Vol]Or dered By: Dr. Vazquez on 07-09-2022 MCHC (RBC) [Mass/Vol] 33.1 g/dL 32-36 [facility] No Panel InformationOrdered By: Dr. Vazquez on 07-09-2022 Estimated GFR (MDRD) Amer 156 mL/min >60 [facility] Comment on above: GFR Calc Estimated GFR (MDRD) Non-Af Amer 129 mL/min >60 [facility] Comment on above: Non- GFR Calc Hepatitis B Surface Antigen Non-Reactive Nonreactive [facility] Hepatitis C Antibody Non-Reactive Nonreactive [facility] Comment on above: Non Reactive: < 0.8 Equivocal: >/= 0.8 to < 1.0 Reactive: >/= 1.0The CDC recommends that a reactive/equivocal HCV antibody result be followed up by the HCV Nucleic Acid Amplificationtest (502337) Platelets bldOrdered By: Dr. Vazquez on 07-09-2022 Platelets (Bld) [#/Vol] 298 10*3/uL 150-450 [facility] Serum cyclic citrullinated p eptide IgG antibody assay (units/volume)Ordered By: Dr. Vazquez on 07-09-2022 Cyclic citrullinated peptide IgG Qn 3 units 0-19 [facility] Comment on above: Negative <20 Weak po sitive 20 - 39 Moderate positive 40 - 59 Strong positive >59Performed at: [facility] [place] [id number] Director: Patrick Auguset PhD, Phone: [phone] Serum hepatitis B virus surf [place] antibody IgG detectionOrdered By: Dr. Vazquez on 07-09-2022 HBV surface IgG Ql (S) Non-Reactive [facility] Comment on above: Non Reactive: Incons istent with immunity less than <10 mIU/mL Reactive: Consistent with immunity greater than or equal to 10 mIU/mL Serum or plasma albumin marco urement (mass/volume)Ordered By: Dr. Vazquez on 07-09-2022 Albumin [Mass/Vol] 3.7 g/dL 3.2-5.0 [facility] Serum or plasma albumin/glob ulin mass ratioOrdered By: Dr. Vazquez on 07-09-2022 Albumin/Globulin [Mass ratio] 1.0 {ratio} 0.9-2.4 [facility] Serum or plasma calcium marco urement (mass/volume)Ordered By: Dr. Vazquez on 07-09-2022 Calcium [Mass/Vol] 9.1 mg/dL 8.5-10.1 [facility] Serum or plasma creatinine m easurement (mass/volume)Ordered By: Dr. Vazquez on 07-09-2022 Creatinine [Mass/Vol] 0.52 mg/dL 0.55-1.02 [facility] Comment on above: The validity of the calculated GFR & GFRAA in patients over 70 years has not been determined. Clinical correlation is essential. Serum or plasma urea nitroge n measurement (mass/volume)Ordered By: Dr. Vazquez on 07-09-2022 Urea nitrogen [Mass/Vol] 11 mg/dL 7-18 [facility] Serum rheumatoid factor dete ctionOrdered By: Dr. Vazquez on 07-09-2022 Rheumatoid factor Ql (S) < 10.0 IU/mL <15 [facility] Thin prep Papanicolaou smear with manual screeningOrdered By: Dr. Vazquez on 07-09-2022 Thin prep Papanicolaou smear with manual screening 22 U/L 15-37 [facility] Thin prep Papanicolaou smear with manual screening 7 5-15 [facility] Erythrocyte sedimentation ra teOrdered By: Carmen Snow on 04-23-2022 ESR (Bld) [Velocity] 31 mm/h 0-30 [facility] Laboratory - Chemistry and C hemistry - challengeOrdered By: Carmen Snow on 04-23-2022 Cobalamin (Vitamin B12) [Mass/Vol] 564 pg/mL 211-911 [facility] No Panel InformationOrdered By: Carmen Snow on 04-23-2022 Anti-Nuclear Antibody Screen Negative Negative [facility] Comment on above: Performed at: [address] [id number] Director: Patrick Auguste PhD, Phone: [phone] Thyroid Stimulating Hormone (TSH) 1.58 uIU/mL 0.358-3.74 [facility] Serum cyclic citrullinated p eptide IgG antibody assay (units/volume)Ordered By: Carmen Snow on 04-23-2022 Cyclic citrullinated peptide IgG Qn 7 units 0-19 [facility] Comment on above: Negative <20 Weak po sitive 20 - 39 Moderate positive 40 - 59 Strong positive >59Performed at: 2[facility] - [facility] [id number] [place], [place] [id number] Director: Mauro Shrestha PhD, Phone: [phone] at: [address] [id number] Director: Patrick Auguste PhD, Phone: [phone] Serum or plasma C reactive p rotein measurement (mass/volume)Ordered By: Carmen Snow on 04-23-2022 CRP [Mass/Vol] 8.67 mg/L 0.0-3.0 [facility] Comment on above: C-Reactive Protein ( CRP) provides useful information for thediagnosis, therapy and monitoring of inflammatory processesand associated diseases. For the evaluation of Relative Riskfor Cardiovascular Disease, a High Sensitivity CRP (HSCRP)should be ordered. Serum rheumatoid factor dete ctionOrdered By: Carmen Snow on 04-23-2022 Rheumatoid factor Ql (S) < 10.0 IU/mL <15 [facility] Thin prep Papanicolaou smear with manual screeningOrdered By: Carmen Snow on 04-23-2022 Thin prep Papanicolaou smear with manual screening Negative . [facility] Comment on above: HLA-B*27 [id number] allele interpretation for all loci based on IMGT/HLAdatabase version 3.44This test was developed and its performance characteristicsdetermined by [facility]. It has not been cleared or approvedby the Food and Drug Administration.[facility] CLIA ID Number [id number] test was performed using PCR (Polymerase ChainReaction)/SSOP (Sequence Specific Oligonucleotide Probes)technique. SBT (Sequence Based Typing) and/or SSP(Sequence Specific Primers) may be used as supplementalmethods when necessary. Please contact [facility] at if you have any questions. Director of [facility] Dr Mauro Shrestha, PhD Absolute lymphocyte counton 02-08-2022 Lymphocytes Auto (Unsp spec) [#/Vol] 1.14 10*3/uL 0.83-4.51 [facility] Work Phone: Basophil percentageon 2021 Basophils/100 WBC (Bld) 0.5 % 0-1 [facility] Work Phone: Chloride [Moles/Vol] 99 mmol/L 98-107 [facility] Work Phone: Eosinophils/100 WBC (Bld) 0.5 % 0-5 [facility] Work Phone: Glucose [Mass/Vol] 137 mg/dL 74-106 [facility] Work Phone: Comment on above: Fasting Glucose resu lt greater than or equal to 126 mg/dL suggests DIABETES MELLITUS per A.D.A. criteria. Neutrophils (Bld) [#/Vol] 2.7 10*3/uL 2.0-7.7 [facility] Work Phone: Neutrophils/100 WBC (Bld) 63.5 % 47-70 [facility] Work Phone: Potassium [Moles/Vol] 3.6 mmol/L 3.5-5.1 [facility] Work Phone: Sodium [Moles/Vol] 134 mmol/L 136-145 [facility] Work Phone: WBC (Bld) [#/Vol] 4.3 10*3/uL 4.4-11.0 [facility] Work Phone: [phone] Blood erythrocytes count (nu mber/volume)on 02-08-2022 RBC (Bld) [#/Vol] 3.97 10*6/uL 4.2-5.4 [facility] Work Phone: Blood hemoglobin measurement (mass/volume)on 02-08-2022 Hemoglobin (Bld) [Mass/Vol] 13.4 g/dL 12.0-15.0 [facility] Work Phone: [phone] Blood lymphocytes/100 leukoc yteson 02-08-2022 Lymphocytes/100 WBC (Bld) 26.6 % 19-41 [facility] Work Phone: Blood monocytes/100 leukocyt eson 02-08-2022 Monocytes/100 WBC (Bld) 8.4 % 0-10 [facility] Work Phone: Blood platelet mean volumeon 02-08-2022 Platelet mean volume (Bld) [Entitic vol] 9.3 fL 6.2-12.0 [facility] Work Phone: Determination of erythrocyte mean corpuscular volume (MCV)on 02-08-2022 MCV (RBC) [Entitic vol] 99.0 fL 81-99 [facility] Work Phone: Hematocrit Auto (Bld) [Volum e fraction]on 02-08-2022 Hematocrit (Bld) [Volume fraction] 39.3 % 37-47 [facility] Work Phone: Laboratory - Chemistry and C hemistry - challengeon 02-08-2022 CO2 [Moles/Vol] 27.0 mmol/L 21.0-32.0 [facility] Work Phone: Urea nitrogen/Creatinine [Mass ratio] 13.6 mg/mg 10-20 [facility] Work Phone: Laboratory - Hematology and Cell countson 02-08-2022 Erythrocyte distribution width (RBC) [Entitic vol] 46.4 fL 35.1-43.9 [facility] Work Phone: Erythrocyte distribution width (RBC) [Ratio] 12.8 % 11.6-14.6 [facility] Work Phone: Immature granulocytes/100 WBC (Bld) 0.500 % 0.0-0.9 [facility] Work Phone: Comment on above: IG% - Immature Granu locytes (promyelocytes, myelocytes and metamyelocytes) > 1% indicates that a LEFT SHIFT is Present. MCH (RBC) [Entitic mass] 33.8 pg 27.0-32.0 [facility] Work Phone: Nucleated RBC/100 WBC (Bld) [Ratio] 0 % 0-5 [facility] Work Phone: MCHC Auto (RBC) [Mass/Vol]on 02-08-2022 MCHC (RBC) [Mass/Vol] 34.1 g/dL 32-36 [facility] Work Phone: No Panel Informationon 02-08 Estimated GFR (MDRD) Amer 135 mL/min >60 [facility] Work Phone: Comment on above: GFR Calc Estimated GFR (MDRD) Non-Af Amer 112 mL/min >60 [facility] Work Phone: Comment on above: Non- GFR Calc Platelets bldon 02-08-2022 Platelets (Bld) [#/Vol] 263 10*3/uL 150-450 [facility] Work Phone: Serum or plasma calcium marco urement (mass/volume)on 02-08-2022 Calcium [Mass/Vol] 8.8 mg/dL 8.5-10.1 [facility] Work Phone: Serum or plasma creatinine m easurement (mass/volume)on 02-08-2022 Creatinine [Mass/Vol] 0.59 mg/dL 0.55-1.02 [facility] Work Phone: Comment on above: The validity of the calculated GFR & GFRAA in patients over 70 years has not been determined. Clinical correlation is essential. Serum or plasma urea nitroge n measurement (mass/volume)on 02-08-2022 Urea nitrogen [Mass/Vol] 8 mg/dL 7-18 [facility] Work Phone: Thin prep Papanicolaou smear with manual screeningon 02-08-2022 Thin prep Papanicolaou smear with manual screening 8 5-15 [facility] Work Phone: CONSTANCE SCREENING W Kenn 11-15 [facility] OPERATIVE PROCEDURESon 11-01 OPERATIVE PROCEDURES [facility] OPERATIVE REPORT NAME ACCOUNT SEX AGE ADMIT DISCHARGE PT MED. RECORD# NUMBER DATE DATE TYPE [employer]YMUNDO BLANKENSHIP [id number] F 56 10/26/21 2 L [id number] ROOM: [facility] DATE OF : 1965 DICTATING PHYSICIAN: Manju Russell DATE OF SURGERY: October 26, 2021 SURGEON: Manju Russell DPM DIGITAL SALES EXECUTIVE: None. ANESTHESIOLOGIST: Jayant Evans CRNA ANESTHETIC: General with local total of 12 mL of 1% lidocaine plain. PREOPERATIVE DIAGNOSIS: (1) Painful neuroma of left second intermetatarsal space. (2) Painful soft tissue tumor of left rear foot. POSTOPERATIVE DIAGNOSIS: (1) Painful neuroma of left second intermetatarsal space. (2) Painful soft tissue tumor of left rear foot. OPERATION PERFORMED: (1) Excision of neuroma of left second intermetatarsal space. (2) Excision of painful soft tissue tumor of left rear foot. COMPLICATIONS: None. ESTIMATED BLOOD LOSS: Minimal. HEMOSTASIS: Pneumatic ankle tourniquet at 250 mmHg. DESCRIPTION OF OPERATION: Under mild sedation, the patient was brought to the OR and placed on the operating table in the supine position. The pneumatic ankle tourniquet was placed about the patient's left ankle. Following sedation, local anesthesia was obtained about the left second intermetatarsal space and left proximal lateral rear foot overlying the subtalar joint/sinus tarsi utilizing a total of 6 mL of 1% lidocaine plain. The foot was scrubbed, prepped and draped in the usual aseptic manner. The foot was then elevated to exsanguinate the limb, and the pneumatic ankle tourniquet was inflated to 250 mmHg. Attention was then directed to the left second intermetatarsal space, where Page 1 of 2 [employer] Operative Report REYMUNDO BLANKENSHIP : 1965 approximately a 3 cm linear longitudinal incision was made in between toes 2 and 3 and dorsal to the second intermetatarsal space. The incision was deepened through sharp and blunt dissection, and care was taken to retract all vital neurovascular structures. The incision was deepened with blunt dissection down to the deep intermetatarsal space, where the neuroma was then located and dissected free from its soft tissue attachments and then was excised and passed from the operative field. The wound was flushed with copious amounts of normal sterile saline and was inspected for further signs of pathology. Next, attention was directed to the sinus tarsi area, where approximately a 3 cm linear oblique incision was made parallel to the skin lines. The incision was deepened through sharp dissection, and all vital neurovascular structures were retracted. At this point, the soft tissue tumor was located and appears to be a lipoma in origin. It was then dissected free from its soft tissue attachments bluntly, removed, and passed from the operative field. No large neurovascular structures needed to be sacrificed during this excision. The wound was flushed with copious amounts of normal sterile saline. Attention was then directed to the first incision at the second intermetatarsal space, which was reapproximated and coapted at the subcutaneous level utilizing 3-0 Vicryl sutures. The skin was reapproximated and coapted utilizing 5-0 Monocryl sutures. Closure was similar to the second incision overlying the sinus tarsi. Both incisions were reinforced with Steri-Strips and Cavilon. A postoperative block consisting of a total of 6 mL of 1% lidocaine plain was infiltrated about both surgical areas. Upon completion of the procedure, both incisions were dressed with Xeroform and covered with a sterile compressive dressing consisting of 4x4s and Kerlix. The pneumatic ankle tourniquet was deflated, and a prompt hyperemic response was noted to all digits of the left foot. An Garland wrap was then applied. The patient tolerated the procedure and anesthesia well. She was transferred to the recovery room with vital signs stable and vascular status intact to all toes of the left foot. Following a period of postoperative monitoring, she will be discharged home with written and oral postoperative instructions. She is to keep the dressing clean, dry and intact, avoid excessive ambulation, rest, ice and elevate the left foot with no ice to the toes. Wear the surgical shoe at all times while ambulating. Contact Dr. Russell for all postoperative follow-up care and if any problems would arise. A postoperative pain prescription was written for [place], and the patient should take this as directed. Dictated By: Manju Russell DPM 10/26/21 08:51 JOB #: [id number] Transcribed By: isadora 10/26/21 09:49 Electronically signed by: E-SIGN MANJU RUSSELL 11/01/21 07:16 Page 2 of 2 REYMUNDO BLANKENSHIP Operative Report Normal [facility] Final Surgical Pathology Rep corinne 10-31-2021 Final Surgical Pathology Report . Pathology Reports Accession: Collected Date/Time: Received Date/Time: Pathologist: [id number] 10/26/2021 07:43 EDT 10/30/2021 10:07 EDT GI TSE MD Final Surgical Pathology Report DIAGNOSIS: A) SOFT TISSUE, LEFT FOOT - MORALES'S NEUROMA. B) SOFT TISSUE, REARFOOT - LIPOMA. COMMENT: [facility] [id number] CLINICAL INFORMATION: LESION PLANTAR NERVE LEFT LOWER LIMB SPECIMEN: A LEFT - NEUROMA B LIPOMA REARFOOT GROSS DESCRIPTION: A. Received in formalin, labeled with the patient's name and designated neuroma are multiple friable fragments of rubbery soft yellow-white tissue, in aggregate 2.0 x 1.2 x 0.8 cm. All embedded in 1 cassette. B. Received in formalin, labeled with the patient's name and designated lipoma rear foot are multiple friable fragments of yellow apparent adipose tissue, in aggregate 2.3 x 2.0 x 0.7 cm. All embedded in 1 cassette. Dictated by LOIS NORRIS MICROSCOPIC DESCRIPTION: Slides reviewed. Electronically Signed by Pathology Report verified by [facility] Electronically signed by GI TSE Sign out Date: 10/31/2021 15:37 Performing Lab: [facility], [address] [place] [address] ([place]) Absolute lymphocyte counton 10-02-2021 Lymphocytes Auto (Unsp spec) [#/Vol] 2.33 10*3/uL 0.83-4.51 [facility] Work Phone: Basophil percentageon 2021 Basophils/100 WBC (Bld) 0.4 % 0-1 [facility] Work Phone: Bilirubin [Mass/Vol] 0.30 mg/dL 0.20-1.00 [facility] Work Phone: Comment on above: For patients on eltr ombopag therapy, use of Dimension [place] TBIL is not recommended. Chloride [Moles/Vol] 95 mmol/L 98-107 [facility] Work Phone: Eosinophils/100 WBC (Bld) 0.3 % 0-5 [facility] Work Phone: Glucose [Mass/Vol] 93 mg/dL 74-106 [facility] Work Phone: Neutrophils (Bld) [#/Vol] 4.7 10*3/uL 2.0-7.7 [facility] Work Phone: [phone] Neutrophils/100 WBC (Bld) 62.5 % 47-70 [facility] Work Phone: [phone] Potassium [Moles/Vol] 4.0 mmol/L 3.5-5.1 [facility] Work Phone: [phone] Protein [Mass/Vol] 7.7 g/dL 6.4-8.2 [facility] Work Phone: Sodium [Moles/Vol] 130 mmol/L 136-145 [facility] Work Phone: WBC (Bld) [#/Vol] 7.5 10*3/uL 4.4-11.0 [facility] Work Phone: Blood erythrocytes count (nu mber/volume)on 10-02-2021 RBC (Bld) [#/Vol] 4.04 10*6/uL 4.2-5.4 [facility] Work Phone: Blood hemoglobin measurement (mass/volume)on 10-02-2021 Hemoglobin (Bld) [Mass/Vol] 13.4 g/dL 12.0-15.0 [facility] Work Phone: Blood lymphocytes/100 leukoc yteson 10-02-2021 Lymphocytes/100 WBC (Bld) 31.2 % 19-41 [facility] Work Phone: [phone] Blood monocytes/100 leukocyt eson 10-02-2021 Monocytes/100 WBC (Bld) 5.2 % 0-10 [facility] Work Phone: Blood platelet mean volumeon 10-02-2021 Platelet mean volume (Bld) [Entitic vol] 9.8 fL 6.2-12.0 [facility] Work Phone: Determination of erythrocyte mean corpuscular volume (MCV)on 10-02-2021 MCV (RBC) [Entitic vol] 97.8 fL 81-99 [facility] Work Phone: Hematocrit Auto (Bld) [Volum e fraction]on 10-02-2021 Hematocrit (Bld) [Volume fraction] 39.5 % 37-47 [facility] Work Phone: Laboratory - Chemistry and C hemistry - challengeon 10-02-2021 ALP [Catalytic activity/Vol] 92 U/L 45-117 [facility] Work Phone: ALT [Catalytic activity/Vol] 40 U/L 13-56 [facility] Work Phone: CO2 [Moles/Vol] 27.0 mmol/L 21.0-32.0 [facility] Work Phone: Globulin (S) [Mass/Vol] 3.7 g/dL 2.2-4.2 [facility] Work Phone: Urea nitrogen/Creatinine [Mass ratio] 15.1 mg/mg 10-20 [facility] Work Phone: Laboratory - Hematology and Cell countson 10-02-2021 Erythrocyte distribution width (RBC) [Entitic vol] 43.2 fL 35.1-43.9 [facility] Work Phone: Erythrocyte distribution width (RBC) [Ratio] 11.9 % 11.6-14.6 [facility] Work Phone: Immature granulocytes/100 WBC (Bld) 0.400 % 0.0-0.9 [facility] Work Phone: Comment on above: IG% - Immature Granu locytes (promyelocytes, myelocytes and metamyelocytes) > 1% indicates that a LEFT SHIFT is Present. MCH (RBC) [Entitic mass] 33.2 pg 27.0-32.0 [facility] Work Phone: Nucleated RBC/100 WBC (Bld) [Ratio] 0 % 0-5 [facility] Work Phone: MCHC Auto (RBC) [Mass/Vol]on 10-02-2021 MCHC (RBC) [Mass/Vol] 33.9 g/dL 32-36 [facility] Work Phone: No Panel Informationon 10-02 Estimated GFR (MDRD) Amer 118 mL/min >60 [facility] Work Phone: Comment on above: GFR Calc Estimated GFR (MDRD) Non-Af Amer 97 mL/min >60 [facility] Work Phone: Comment on above: Non- GFR Calc Platelets bldon 10-02-2021 Platelets (Bld) [#/Vol] 301 10*3/uL 150-450 [facility] Work Phone: Serum or plasma albumin marco urement (mass/volume)on 10-02-2021 Albumin [Mass/Vol] 4.0 g/dL 3.2-5.0 [facility] Work Phone: Serum or plasma albumin/glob ulin mass ratioon 10-02-2021 Albumin/Globulin [Mass ratio] 1.1 {ratio} 0.9-2.4 [facility] Work Phone: Serum or plasma calcium marco urement (mass/volume)on 10-02-2021 Calcium [Mass/Vol] 9.2 mg/dL 8.5-10.1 [facility] Work Phone: Serum or plasma creatinine m easurement (mass/volume)on 10-02-2021 Creatinine [Mass/Vol] 0.66 mg/dL 0.55-1.02 [facility] Work Phone: Comment on above: The validity of the calculated GFR & GFRAA in patients over 70 years has not been determined. Clinical correlation is essential. Serum or plasma urea nitroge n measurement (mass/volume)on 10-02-2021 Urea nitrogen [Mass/Vol] 10 mg/dL 7-18 [facility] Work Phone: Thin prep Papanicolaou smear with manual screeningon 10-02-2021 Thin prep Papanicolaou smear with manual screening 32 U/L 15-37 [facility] Work Phone: Thin prep Papanicolaou smear with manual screening 8 5-15 [facility] Work Phone: FOOT COMPLETE LTon 1 FOOT COMPLETE LT [facility] [address], [place] [address] Patient: REYMUNDO BLANKENSHIP Phone#: : 1965 Age: 55 Gender: F Pt. Type: Out Account: [id number] Location: 052 Ordering: MANJU RUSSELL Exam Date: 12/11/2020/9:05 Family Phys: Charge Code: [id number] Physician: Gillespie Order #: [id number] DLP Dose#: PROCEDURE: X-RAY FOOT LT COMPLETE MIN 3 VIEWS COMPARISON: [facility], XR, FOOT LT COMPLETE, 11/07/2020, 19:39. INDICATIONS: Left foot pain FINDINGS: BONES: A calcaneal spur is present unchanged since previous exam. There is no evidence of acute bone abnormality. SOFT TISSUES: Negative. No visible soft tissue swelling. EFFUSION: None visible. OTHER: Negative. CONCLUSION: No acute disease. No significant change has occurred. Dictated by: Mercy Guillen MD on 12/11/2020 at 16:46 Approved by: Mercy Guillen MD on 12/11/2020 at 16:48 Normal [facility] EMERGENCY REPORTon 1 EMERGENCY REPORT [facility] EMERGENCY ROOM REPORT NAME ACCOUNT SEX AGE ADMIT DISCHARGE PT MED. RECORD# NUMBER DATE DATE TYPE REYMUNDO BLANKENSHIP [id number] F 55 11/07/20 11/07/20 3 L [id number] ROOM: ER DATE OF : 1965 DICTATING PHYSICIAN: Ciro Rooney Time Seen: 1920 hours HISTORY OF PRESENT ILLNESS: This 55-year-old white female is complaining of pain and bruising to the lateral aspect of her left ankle and the dorsum of her left foot, mainly over the 5th metatarsal region. She states that the swelling bruising started yesterday morning. It is somewhat painful, especially if she tries to weight bear on it, but she denies any specific trauma. 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 Last week she thinks that she may have twisted the left foot and ankle when she tripped, but she is not absolutely sure. She denies any hard falls from any height. PAST MEDICAL HISTORY: Denies. PAST SURGICAL HISTORY: Hysterectomy. SOCIAL HISTORY: The patient is not a smoker. She denies use of alcohol or illicit drugs. She lives at home with the family. She is allergic to erythromycin. PCP is Dr. Toney from [facility]. REVIEW OF SYSTEMS: Denies any chest pain, shortness of breath, cough, sputum, wheezing, abdominal pain, nausea, vomiting, diarrhea, constipation, melena, hematochezia, headache, numbness, unsteady gait, weakness, neck or back pain. She does complain of left ankle and left foot pain wit some associated bruising, especially the foot. Further review of systems negative. PHYSICAL EXAMINATION: VITAL SIGNS: Blood pressure 146/94, pulse 79, respiratory rate 16, temperature 97.6, pulse ox 97%, weight 136 pounds. GENERAL: The patient is alert and oriented x3. Presently appears in no acute distress. Pleasant and cooperative. HEENT: Head appears atraumatic. Pupils are equal and reactive to light. Red reflex is intact bilaterally. Extraocular muscles are intact. No conjunctival injection. The nose exhibits no rhinorrhea or epistaxis. Mouth: Mucous membranes are moist. Teeth intact. NECK: Neck is supple. Trachea is midline. No JVD or lymphadenopathy. No posterior cervical tenderness. No nuchal rigidity. LUNGS: Clear to auscultation bilaterally. No adventitious sounds. No accessory muscle use noted. CVS: Heart rate and rhythm regular without murmur. ABDOMEN: Soft, nontender with normoactive bowel sounds x4 quadrants. No guarding, rigidity, Page 1 of 2 REYMUNDO BLANKENSHIP Emergency Room Report REYMUNDO BLANKENSHIP : 1965 rebound. No palpable abdominal mass. No hepatosplenomegaly. BACK: No midline or paraspinal region tenderness. No increased paraspinal muscle rigidity. Negative Meliton sign. EXTREMITIES: I do note some swelling and ecchymosis over the dorsum of the left foot, mainly over the fourth and fifth metatarsal regions. It is not warm. Swelling is minimal, but bruising and ecchymosis is extensive. It extends from the MP joints proximally to the inferior tip of the lateral malleolus. The patient is palpably tender over the lateral malleolus as well. I do not see any joint effusion. There are no skin abrasions or lacerations. She has a good left dorsalis pedis pulse. She has good sensation to light touch to all digits of right foot. Capillary refill is less than 2 seconds. No bony deformity. PLAN/DISPOSITION: Presently, I will obtain x-rays of the left foot and ankle, and then we will reevaluate. Dictated By: Ciro Rooney DO 11/07/20 19:39 JOB #: [id number] Transcribed By: michelle 11/08/20 15:20 Electronically signed by: E-Sign: Dr. Ciro Rooney D.O. 11/11/20 04:05 Page 2 of 2 REYMUNDO BLANKENSHIP Emergency Room Report Normal [facility] EMERGENCY REPORT [facility] EMERGENCY ROOM REPORT NAME ACCOUNT SEX AGE ADMIT DISCHARGE PT MED. RECORD# NUMBER DATE DATE TYPE KRZYSZTOF REYMUNDO [id number] F 55 11/07/20 11/07/20 3 L [id number] ROOM: ER DATE OF : 1965 DICTATING PHYSICIAN: Ciro Rooney ADDENDUM: DIAGNOSTIC DATA: X-rays obtained of the left ankle and left foot. I see no evidence of any acute fracture. There was a cortical disruption to the base of the fourth metatarsal that I saw on the oblique view, but it does not look to be acute. EMERGENCY DEPARTMENT COURSE AND TREATMENT: Certainly, a lot of the patient's ecchymosis and swelling is over that area and she was somewhat tender in this region. We did place her in a gel cast and placed her up on crutches. DIAGNOSIS: Ligamentous sprain left ankle and left foot. PLAN/DISPOSITION: I advised her against any weightbearing on the left foot as tolerated. Otherwise, use the crutches. I referred her to [facility] for followup if her symptoms do not improve. She does seen Dr. Héctor Toney at [address] [place] [address]. [address] [facility] [address], phone [phone]. She can follow up with her family doctor and by then we should have the radiologist's interpretation on the x-rays. The patient was given a script for ibuprofen 600 mg one every 8 hours as needed for pain, dispense #20 with no refill. The patient was placed in a gel cast and crutches and discharged in a clinically stable condition. Nurse's notes reviewed. Dictated By: Ciro Rooney DO 11/07/20 20:49 JOB #: [id number] Transcribed By: michelle 11/08/20 16:24 Electronically signed by: E-Sign: Dr. Ciro Rooney D.O. 11/11/20 04:01 Page 1 of 1 REYMUNDO BLANKENSHIP Emergency Room Report Normal [facility] ANKLE COMPLETE LTon 11-08-19 21 ANKLE COMPLETE [address] [address] Patient: REYMUNDO BLANKENSHIP. Phone#: : 1965 Age: 55 Gender: F Pt. Type: ER Account: [id number] Location: [facility] Ordering: CIRO ROONEY Exam Date: 11/07/2020/19:37 Family Phys: Charge Code: [id number] Physician: Gillespie Order #: [id number] DLP Dose#: PROCEDURE: X-RAY ANKLE COMPLETE LT MIN 3 VIEWS COMPARISON: None. INDICATIONS: Pain. FINDINGS: BONES: No fracture or dislocation. Calcaneal spur measuring 0.8 cm. Ankle mortise is intact. Joint space is maintained. SOFT TISSUES: Negative. No visible soft tissue swelling. EFFUSION: None visible. OTHER: Negative. CONCLUSION: 1. Calcaneal spur. 2. No acute osseous abnormality. Dictated by: Monica Napier MD on 11/08/2020 at 8:42 Approved by: Monica Napier MD on 11/08/2020 at 8:44 Normal [facility] FOOT COMPLETE LTon 1 FOOT COMPLETE [address] [address] Patient: BLANKENSHIPREYMUNDO. Phone#: : 1965 Age: 55 Gender: F Pt. Type: ER Account: [id number] Location: 052 Ordering: ICRO ROONEY Exam Date: 11/07/2020/19:39 Family Phys: Charge Code: [id number] Physician: Gillespie Order #: [id number] DLP Dose#: PROCEDURE: X-RAY FOOT LT COMPLETE MIN 3 VIEWS COMPARISON: None. INDICATIONS: Pain. FINDINGS: BONES: No fracture dislocation. Calcaneal spur measuring 0.8 cm. Otherwise no significant arthropathy. Chronic appearing cortical irregularity at the base of the 4th metatarsal, of uncertain significance, correlate with history of remote trauma. SOFT TISSUES: Negative. No visible soft tissue swelling. EFFUSION: None visible. OTHER: Negative. CONCLUSION: 1. Calcaneal spur 2. No acute osseous abnormality Dictated by: Monica Napier MD on 11/08/2020 at 8:44 Approved by: Monica Napier MD on 11/08/2020 at 8:50 Normal [facility] Vital Signs Date Time Vital Sign Value Performing Clinician José [email or web address] 11-04-2024 08:49-0400 Body height 154.94 cm Nathanael Frazier MD Work Phone: [facility] 11-04-2024 08:49-0400 Body mass index (BMI) [Ratio] 28.9 kg/m2 Nathanael Frazier MD Work Phone: [facility] 11-04-2024 08:49-0400 Body temperature 98 [degF] Nathanael Frazier MD Work Phone: [facility] 11-04-2024 08:49-0400 Body weight 69.39 kg Nathanael Frazier MD Work Phone: [facility] 11-04-2024 08:49-0400 Diastolic blood pressure 75 mm[Hg] Nathanael Frazier MD Work Phone: [facility] 11-04-2024 08:49-0400 Heart rate 63 /min Nathanael Frazier MD Work Phone: [facility] 11-04-2024 08:49-0400 Respiratory rate 16 /min Nahtanael Frazier MD Work Phone: [facility] 11-04-2024 08:49-0400 SaO2% (BldA) [Mass fraction] 96 % Nathanael Frazier MD Work Phone: [facility] 11-04-2024 08:49-0400 Systolic blood pressure 114 mm[Hg] Nathanael Frazier MD Work Phone: [facility] 03-05-2024 15:21-0500 Body height 154.2 cm Jade Cary FACTORY CLERK.HOD CARRIER Work Phone: [facility] 03-05-2024 15:21-0500 Body mass index (BMI) [Ratio] 29.19 kg/m2 Jade Cary FACTORY CLERK.HOD CARRIER Work Phone: [facility] 03-05-2024 15:21-0500 Body weight 69.4 kg Jade Cary FACTORY CLERK.HOD CARRIER Work Phone: [facility] 12-09-2023 10:29-0400 Body height 154.9 cm Reny Markham APRN - HOD CARRIER Work Phone: [facility] 12-09-2023 10:29-0400 Body mass index (BMI) [Ratio] 27.78 kg/m2 Reny Markham APRN - HOD CARRIER Work Phone: [facility] 12-09-2023 10:29-0400 Body temperature 97.7 [degF] Reny Markham APRN - HOD CARRIER Work Phone: [facility] 12-09-2023 10:29-0400 Body weight 66.68 kg Reny Markham APRN - HOD CARRIER Work Phone: [facility] 12-09-2023 10:29-0400 Diastolic blood pressure 59 mm[Hg] Reny Markham APRN - HOD CARRIER Work Phone: [facility] 12-09-2023 10:29-0400 Heart rate 61 /min Reny Markham APRN - HOD CARRIER Work Phone: [facility] 12-09-2023 10:29-0400 Respiratory rate 12 /min Reny Markham FACTORY CLERK - HOD CARRIER Work Phone: [facility] 12-09-2023 10:29-0400 Systolic blood pressure 102 mm[Hg] Reny Markham FACTORY CLERK - HOD CARRIER Work Phone: [facility] 12-09-2023 09:58-0400 Body height 156.2 cm Reny Markham FACTORY CLERK - HOD CARRIER Work Phone: [facility] 12-09-2023 09:58-0400 Body mass index (BMI) [Ratio] 28.63 kg/m2 Reny Markham FACTORY CLERK - HOD CARRIER Work Phone: [facility] 12-09-2023 09:58-0400 Body weight 69.85 kg Reny Markham FACTORY CLERK - HOD CARRIER Work Phone: [facility] 11-24-2023 11:36-0400 Body height 154.9 cm Vernell Florentin FACTORY CLERK.HOD CARRIER Work Phone: [facility] 11-24-2023 11:36-0400 Body mass index (BMI) [Ratio] 27.81 kg/m2 Vernell Florentin FACTORY CLERK.HOD CARRIER Work Phone: [facility] 11-24-2023 11:36-0400 Body temperature 98.1 [degF] Vernell Florentin FACTORY CLERK.HOD CARRIER Work Phone: [facility] 11-24-2023 11:36-0400 Body weight 66.77 kg Vernell Florentin FACTORY CLERK.HOD CARRIER Work Phone: [facility] 11-24-2023 11:36-0400 Diastolic blood pressure 72 mm[Hg] Vernell Florentin FACTORY CLERK.HOD CARRIER Work Phone: [facility] 11-24-2023 11:36-0400 Heart rate 78 /min Vernell Florentin FACTORY CLERK.HOD CARRIER Work Phone: [facility] 11-24-2023 11:36-0400 SaO2% (BldA) [Mass fraction] 98 % Vernell Florentin FACTORY CLERK.HOD CARRIER Work Phone: [facility] 11-24-2023 11:36-0400 Systolic blood pressure 118 mm[Hg] Vernell Vanegas FACTORY CLERK.HOD CARRIER Work Phone: [facility] 02-20-2023 15:52-0400 Body height 154.9 cm Jade Sourav FACTORY CLERK.HOD CARRIER Work Phone: [facility] 02-20-2023 15:52-0400 Body weight 62.14 kg Jade Sourav FACTORY CLERK.HOD CARRIER Work Phone: [facility] 02-20-2023 15:52-0400 Diastolic blood pressure 68 mm[Hg] Jade Cary FACTORY CLERK.HOD CARRIER Work Phone: [facility] 02-20-2023 15:52-0400 Systolic blood pressure 112 mm[Hg] Jade Sourav FACTORY CLERK.HOD CARRIER Work Phone: [facility] 12-06-2022 14:53-0400 Body height 157.5 cm Reny Markham APRN - HOD CARRIER Work Phone: [facility] 12-06-2022 14:53-0400 Body mass index (BMI) [Ratio] 28.17 kg/m2 Reny Markham APRN - HOD CARRIER Work Phone: [facility] 12-06-2022 14:53-0400 Body temperature 97.7 [degF] Reny Markham APRN - HOD CARRIER Work Phone: [facility] 12-06-2022 14:53-0400 Body weight 69.85 kg Reny Markham APRN - HOD CARRIER Work Phone: [facility] 12-06-2022 14:53-0400 Diastolic blood pressure 69 mm[Hg] Reny Markham APRN - HOD CARRIER Work Phone: [facility] 12-06-2022 14:53-0400 Heart rate 82 /min Reny Markham APRN - HOD CARRIER Work Phone: [facility] 12-06-2022 14:53-0400 Respiratory rate 12 /min Reny Markham FACTORY CLERK - HOD CARRIER Work Phone: [facility] 12-06-2022 14:53-0400 Systolic blood pressure 122 mm[Hg] Reny Markham FACTORY CLERK - HOD CARRIER Work Phone: [facility] 06-05-2022 13:20-0500 Body height 157.5 cm Anirudh Avalos MD Work Phone: [facility] 06-05-2022 13:20-0500 Body mass index (BMI) [Ratio] 27.62 kg/m2 Anirudh Avalos MD Work Phone: [facility] 06-05-2022 13:20-0500 Body temperature 97.3 [degF] Anirudh Avalos MD Work Phone: [facility] 06-05-2022 13:20-0500 Body weight 68.49 kg Anirudh Avalos MD Work Phone: [facility] 05-16-2022 15:18-0500 Body weight 70.67 kg Jade Cary FACTORY CLERK.HOD CARRIER Work Phone: [facility] 05-16-2022 15:18-0500 Diastolic blood pressure 66 mm[Hg] Jade Cary FACTORY CLERK.HOD CARRIER Work Phone: [facility] 05-16-2022 15:18-0500 Systolic blood pressure 110 mm[Hg] Jade Cary FACTORY CLERK.HOD CARRIER Work Phone: [facility] 11-15-2021 07:11-0400 Body height 154.9 cm Jade Cary FACTORY CLERK.HOD CARRIER Work Phone: [facility] 11-15-2021 07:11-0400 Body weight 68.04 kg Jade Cary FACTORY CLERK.HOD CARRIER Work Phone: [facility] 11-15-2021 07:11-0400 Diastolic blood pressure 64 mm[Hg] Jade Cary FACTORY CLERK.HOD CARRIER Work Phone: [facility] 11-15-2021 07:11-0400 Systolic blood pressure 106 mm[Hg] Jade Ferguson APRN.HOD CARRIER Work Phone: [facility] Encounters Encounter Date Encounter Type Care Provider Facility Start: 11-04-2024 End: 11-04-2024 ambulatory Nathanael Frazier MD Work Phone: -[facility] Start: 11-04-2024 End: 11-04-[address] Ranjith Lee MD -[facility] Work Phone: Start: 10-01-2024 End: 10-01-2024 ambulatory Nathanael Fraizer MD Work Phone: [facility] Work Phone: Start: 10-01-2024 End: 10-01-[address] Mary Ann Vazquez MD -[facility] Start: 10-01-2024 End: 10-01-2024 ambulatory Nathanael Frazier Facility:[facility] Start: 07-20-2024 ambulatory Arron Soto Facility:[facility] Start: 07-20-2024 Non-patient / Non-visit Dr. Nikolas STEPHENSON -[facility] Start: 07-20-[address] Nathanael Frazier MD -[facility] Work Phone: Start: 07-20-2024 ambulatory Nathanael Frazier Facility:[facility] Start: 04-10-2024 End: 04-10-2024 ambulatory Mary Ann Vazquez Facility:[facility] Start: 03-05-2024 End: 03-05-2024 ambulatory HÉCTOR Abiodun DEARING Facility:[facility] Start: 03-05-2024 End: 03-05-2024 Patient encounter procedure Jade Ferguson APRN.HOD CARRIER Work Phone: OB/Gynecology Comment on above: Encounter for gyneco logical examination (general) (routine) without abnormal findings (Primary Dx); Encounter for screening mammogram for breast cancer Start: 03-05-2024 End: 03-05-2024 Patient encounter status Jade Ferguson APRN.HOD CARRIER Work Phone: [facility] Start: 02-23-2024 End: 02-23-2024 ambulatory Nathanael Frazier Facility:[facility] Start: 01-05-2024 ambulatory [facility] Facility :[facility] Start: 12-09-2023 End: 12-09-2023 Prevent med group home counselor&/risk factor redj spx 15 min Reny Randle CNP Work Phone: [facility] [place] Comment on above: Family history of br east cancer (Primary Dx); Family history of pancreatic cancer; Encounter for screening mammogram for breast cancer; Family history of prostate cancer; Family history of melanoma; Family history of colon cancer; Encounter for examination and observation for other specified reasons Start: 12-09-2023 End: 12-09-2023 Subsequent hospital visit by physician Reny Randle CNP Work Phone: [facility] Comment on above: Encounter for screen ing mammogram for breast cancer Start: 12-09-2023 End: 12-09-2023 ambulatory RENY MARKHAM [facility] Start: 11-24-2023 End: 11-24-2023 ambulatory HÉCTOR Abiodun DEARING Facility:[facility] Start: 11-24-2023 End: 11-24-2023 Patient encounter procedure Vernell Vanegas APRN.HOD CARRIER Work Phone: General Surgery Comment on above: History of colonic p olyps (Primary Dx); Encounter for screening for malignant neoplasm of colon Start: 10-21-2023 Refill Jade Sourav MESAHOD CARRIER Work Phone: OB/Gynecology Comment on above: Refill Request Start: 10-20-2023 End: 10-20-2023 ambulatory [facility] Facility:[facility] Start: 07-05-2023 End: 07-05-[address] [facility] Work Phone: Start: 07-05-2023 End: 07-05-[address] [facility] Work Phone: Start: 06-25-2023 End: 06-25-2023 Emergency department patient visit LAURA ALFONSO [facility] Start: 06-17-2023 End: 06-17-[address] [facility] Work Phone: Start: 06-17-2023 End: 06-17-[address] [facility], Gina Barber Start: 02-20-2023 End: 02-20-2023 Patient encounter procedure Jade Barnettcalf FACTORY CLERK.HOD CARRIER Work Phone: OB/Gynecology Comment on above: Encounter for gyneco logical examination (general) (routine) without abnormal findings (Primary Dx) Start: 02-20-2023 End: 02-20-2023 Patient encounter status Jade Cary FACTORY CLERK.HOD CARRIER Work Phone: [facility] Start: 01-23-2023 End: 01-23-[address] [facility] Work Phone: Start: 01-23-2023 End: 01-23-[address] [facility] Work Phone: Start: 01-14-2023 Refill Jade Adamsf FACTORY CLERK.HOD CARRIER Work Phone: OB/Gynecology Comment on above: Refill Request; Refi ll Request Start: 12-06-2022 End: 12-06-2022 Office outpatient visit 15 minutes Reny Randle CNP Work Phone: [facility] [place] Comment on above: Family history of br east cancer (Primary Dx); Encounter for screening mammogram for breast cancer; Breast pain; Family history of pancreatic cancer; Rheumatoid arthritis, involving unspecified site, unspecified whether rheumatoid factor present (HCC) Start: 12-06-2022 End: 12-06-2022 Subsequent hospital visit by physician Reny Randle CNP Work Phone: [facility] Comment on above: Mammary duct ectasia of left breast Start: 11-12-2022 End: 11-12-2022 Subsequent hospital visit by physician Reny Randle CNP Work Phone: [facility] Comment on above: Dense breasts; Family history of breast cancer Start: 11-02-2022 End: 11-02-[address] [facility] Work Phone: Start: 11-02-2022 End: 11-02-2022 [facility] Start: 09-09-2022 End: 09-09-2022 Patient encounter procedure [facility] Start: 08-28-2022 End: 08-28-2022 ambulatory DO Carmen Snow Work Phone: [facility] Work Phone: Start: 08-28-2022 End: 08-28-2022 Patient encounter procedure DO Carmen Snow Work Phone: [facility] Start: 07-11-2022 Registered Referred DO Carmen Snow Work Phone: [facility] Start: 07-09-2022 End: 07-09-2022 ambulatory DO Carmen Snow Work Phone: [facility] Work Phone: Start: 07-09-2022 End: 07-09-2022 Patient encounter procedure DO Carmen Snow Work Phone: [facility] Start: 06-05-2022 End: 06-05-2022 Office outpatient new 30 minutes Anirudh Avalos MD Work Phone: [facility] Comment on above: Mammary duct ectasia of left breast (Primary Dx); Family history of pancreatic cancer; Family history of melanoma; Dense breasts; Mastodynia of left breast; Costochondritis Start: 05-28-2022 ambulatory Lacy Merino Work Phone: Mammography Comment on above: Mammogram Abnormalit y Start: 05-28-2022 Patient encounter procedure Lacy Negron MD Work Phone: [facility] Start: 05-24-2022 Telephone encounter Jade herzog FACTORY CLERK.HOD CARRIER Work Phone: OB/Gynecology Comment on above: Mammogram Abnormalit y Start: 05-23-2022 Non-patient / Non-visit DO Larissa Snow Work Phone: [facility] Start: 05-23-2022 End: 05-23-2022 Patient encounter procedure DO Carmen Snow Work Phone: [facility] Start: 05-16-2022 End: 05-16-2022 Patient encounter procedure Jade Ferguson FACTORY CLERK.HOD CARRIER Work Phone: OB/Gynecology Comment on above: Breast pain in femal e (Primary Dx) Start: 04-23-2022 End: 04-23-[address] [facility] Work Phone: Start: 04-23-2022 End: 04-23-2022 Patient encounter procedure [facility] Start: 02-08-2022 End: 02-08-[address] [facility] Work Phone: Start: 02-08-2022 End: 02-08-2022 Patient encounter procedure [facility] Start: 01-31-2022 Refill Jade Ferguson FACTORY CLERK.HOD CARRIER Work Phone: OB/Gynecology Comment on above: Refill Request Start: 11-15-2021 Documentation procedure Mammog antonietta Coordinator [facility] Start: 11-15-2021 Letter encounter Mammography Coordinator [facility] Start: 11-15-2021 End: 11-15-2021 Subsequent hospital visit by physician Screen Mammo [facility] Comment on above: Encounter for screen ing mammogram for breast cancer [Z12.31] Start: 11-15-2021 End: 11-15-2021 Patient encounter procedure Jade Ferguson FACTORY CLERK.HOD CARRIER Work Phone: OB/Gynecology Comment on above: Encounter for gyneco logical examination (general) (routine) without abnormal findings (Primary Dx); Encounter for screening mammogram for malignant neoplasm of breast Start: 11-15-2021 End: 11-15-2021 Patient encounter status Jade Ferguson APRN.HOD CARRIER Work Phone: OB/Gynecology Start: 10-26-2021 End: 10-26-2021 ambulatory MANJU DPM [facility] Start: 10-02-2021 End: 10-02-2021 Patient encounter procedure [facility] Start: 12-11-2020 End: 12-11-2020 ambulatory MANJU DPM [facility] Start: 11-07-2020 End: 11-07-2020 Emergency department patient visit CIRO MIRANDA [facility] Procedures Date Procedure Procedure Detail Performing Clinician Start: 07-20-2024 CT angiography of coronary arteries Nathanael Frazier MD Work Phone: Start: 12-09-2023 End: 12-09-2023 Mammography Reny Markham APR N - HOD CARRIER Work Phone: Start: 12-06-2022 Us breast uni real time with image limited Reny Markham APRN - HOD CARRIER Work Phone: Start: 12-06-2022 End: 12-06-2022 Mammography Reny Markham APR N - HOD CARRIER Work Phone: Start: 11-12-2022 MR Breast - bilateral WO and W contrast IV Reny Markham APRN - HOD CARRIER Work Phone: Start: 05-23-2022 Mammography DO Carmen Snow Work Phone: Start: 05-23-2022 Ultrasonography of breast DO Carmen rod Work Phone: Start: 11-15-2021 CONSTANCE SCREENING W CARLIN Jade Ferguson APRN.HOD CARRIER Work Phone: Start: 11-15-2021 Mammography Jade Ferguson APRN.HOD CARRIER Work Phone: Start: 11-10-2018 Colonoscopy Jade Ferguson APRN.HOD CARRIER Work Phone: Start: 10-08-2011 Lipid 1996 panel - Serum or Plasma Jade Ferguson APRN.HOD CARRIER Work Phone: H/O: hysterectomy H/O: hysterectomy History of cholecystectomy Hx of cholecys tectomy Plan of Treatment Date Care Activity Detail Author Start: 01-16-2039 RSV Vaccine (1 - 1-dose 75+ series) RSV Vaccine (1 - 1-dose 75+ series) [facility] Start: 04-26-2029 DTaP/Tdap/Td Vaccines (3 - Td or Tdap) DTaP/Tdap/Td Vaccines (3 - Td or Tdap) [facility] Start: 04-26-2029 Urine microalbumin profile DTaP,Tdap,Td Vaccine (3 - Td or Tdap) [facility] Start: 11-10-2028 Screening for malignant neoplasm of colon [facility] Start: 03-08-2025 End: 03-08-2025 Patient encounter procedure 03/08/2025 3:30 PM EST Office Visit OB/Gynecology [address] [place] [address] Jade Ferguson APRN.CNP [address] [place] [address] Annual OB/Gynecology Comment on above: Annual Start: 12-10-2024 End: 12-10-2024 Patient encounter procedure 12/10/2024 10:30 AM EDT Office Visit [facility] [address] [place] [phone] Reny Markham APRN - HOD CARRIER [address] [facility] [place] [address] [facility] Start: 12-10-2024 End: 12-10-2024 Patient encounter procedure 12/10/2024 9:[address] [facility] [address] [place] [phone] [facility] Start: 12-08-2024 End: 04-04-2025 DBT Breast - bilateral screening CONSTANCE SCREENING W CARLIN Radiology Routine Encounter for screening mammogram for breast cancer Expected: 12/08/2024 (Approximate), Expires: 04/04/2025 [facility] Work Phone: Comment on above: Expected: 12/08/2024 (Approximate), Expi res: 04/04/2025 Start: 12-08-2024 Screening for malignant neoplasm of breast [facility] Start: 04-08-2024 Urine microalbumin profile [facility] Start: 02-23-2024 End: 02-23-2024 Patient encounter procedure 02/23/2024 9:00 AM EDT Office Visit OB/Gynecology [address] [place], [place] [id number] Jade Ferguson APRN.HOD CARRIER [address] [place] [address] ANNUAL EXAM OB/Gynecology Comment on above: ANNUAL EXAM Start: 2024 RSV Immunization aged 60 or older (1 - 1-dose 60+ series) RSV Immunization aged 60 or older (1 - 1-dose 60+ series) [facility] Start: 12-28-2023 Covid-19 Vaccine ( season) Covid-19 Vaccine ( season) [facility] Start: 12-28-2023 Influenza vaccination [facility] Start: 12-26-2023 End: 02-06-2024 DBT Breast - bilateral screening Bilateral screening mammogram with tomosynthesis Imaging Routine Encounter for screening mammogram for breast cancer Expected: 12/26/2023 (Approximate), Expires: 02/06/2024 [facility] Work Phone: Comment on above: Expected: 12/26/2023 (Approximate), Expi res: 02/06/2024 Start: 12-09-2023 End: 12-09-[address] [facility] Start: 12-07-2023 Screening for malignant neoplasm of breast [facility] Start: 11-24-2023 End: 11-24-2023 Patient encounter procedure 11/24/2023 11:45 AM EDT Office Visit General Surgery [address] [place] [address] Meena Ascencio MD [address] [place] [address] 5 year colonoscopy consult General Surgery Comment on above: 5 year colonoscopy consult Start: 11-11-2023 Colonoscopy COLONOSCOPY [facility] Start: 11-11-2023 COLORECTAL CANCER SCREENING COLORECTAL CANCER SCREENING [facility] Start: 11-11-2023 Screening for malignant neoplasm of colon [facility] Start: 04-28-2023 Behavioral Health Screening Behavioral Health Screening [facility] Start: 12-27-2022 Covid-19 Vaccine () Covid-19 Vaccine () [facility] Start: 12-27-2022 Influenza vaccination Influenza Vaccine (#1) [facility] Start: 12-06-2022 End: 12-06-[address] [facility] Start: 11-15-2022 Mammography [facility] Start: 06-07-2022 End: 06-07-[address] [facility] Start: 06-05-2022 End: 08-04-2023 US Breast - left limited Left breast US limited Imaging Routine Dense breasts Mastodynia of left breast Mammary duct ectasia of left breast Expected: 06/05/2022 (Approximate), Expires: 08/04/2023 [facility] Work Phone: Comment on above: Expected: 06/05/2022 (Approximate), Expi res: 08/04/2023 Start: 04-28-2022 DEPRESSION ASSESSMENT DEPRESSION ASSESSMENT [facility] Start: 04-02-2022 HPV TESTING HPV TESTING [facility] Start: 04-02-2022 PAP TESTING PAP TESTING [facility] Start: 04-02-2022 Screening for malignant neoplasm of cervix Cervical Cancer Screening [facility] Start: 12-27-2021 Influenza vaccination [facility] Start: 04-28-2021 DEPRESSION ASSESSMENT DEPRESSION ASSESSMENT [facility] Start: 12-18-2020 COVID-19 VACCINE (4 - Booster for Moderna series) COVID-19 VACCINE (4 - Booster for Moderna series) [facility] Start: 10-13-2020 COVID-19 VACCINE (4 - Booster for Moderna series) COVID-19 VACCINE (4 - Booster for Moderna series) [facility] Start: 10-13-2020 Covid-19 Vaccine (4 - Moderna series) Covid-19 Vaccine (4 - Moderna series) [facility] Start: 10-07-2016 Lipid 1996 panel - Serum or Plasma Lipid Screening [facility] Start: 10-07-2016 Lipid panel Lipid Screening [facility] Start: 10-07-2016 LIPID SCREEN LIPID SCREEN [facility] Start: 08-26-2016 DIABETES SCREEN DIABETES SCREEN [facility] Start: 08-26-2016 Diabetes Screening Diabetes Screening [facility] Start: 01-16-2014 SHINGRIX VACCINE (1 of 2) SHINGRIX VACCINE (1 of 2) [facility] Start: 01-16-2014 Zoster Vaccines (1 of 2) Zoster Vaccines (1 of 2) [facility] Start: 01-16-2009 COLOGUARD (FIT-DNA) COLOGUARD (FIT-DNA) [facility] Start: 01-16-[address] COLONOGRAPHY [facility] Start: 01-16-2009 FECAL OCCULT BLOOD FECAL OCCULT BLOOD [facility] Start: 01-16-2009 Screening for malignant neoplasm of colon [facility] Start: 01-16-2009 SIGMOIDOSCOPY SIGMOIDOSCOPY [facility] Start: 2004 Screening for malignant neoplasm of breast Mammogram [facility] Start: 01-16-1994 Screening for malignant neoplasm of cervix [facility] Start: 01-16-1985 Screening for malignant neoplasm of cervix Pap Smear [facility] Start: 01-16-1983 Hepatitis B Vaccines (1 of 3 - 19+ 3-dose series) Hepatitis B Vaccines (1 of 3 - 19+ 3-dose series) [facility] Start: 01-16-1982 Depression Screening Depression Screening [facility] Start: 01-16-1982 Diabetes mellitus screening Diabetes Screening [facility] Start: 01-16-1982 HEPATITIS C SCREENING HEPATITIS C SCREENING [facility] Start: 01-16-1982 Hepatitis C screening Hepatitis C Screening [facility] Start: 01-16-1982 HIV SCREENING HIV SCREENING [facility] Start: 01-16-1982 HIV screening HIV Screening [facility] Start: 1976 Adult depression screening assessment DEPRESSION SCREENING [facility] Start: 01-16-1965 MMR Vaccines (1 of 1 - Standard series) MMR Vaccines (1 of 1 - Standard series) [facility] Start: 1964 HEPATITIS B (1 of 3 - 3-dose series) HEPATITIS B (1 of 3 - 3-dose series) [facility] Start: 1964 Hepatitis B Vaccine (1 of 3 - 3-dose series) Hepatitis B Vaccine (1 of 3 - 3-dose series) [facility] Start: 1964 Hepatitis B Vaccines (1 of 3 - 3-dose series) Hepatitis B Vaccines (1 of 3 - 3-dose series) [facility] Start: 1964 HIV screening HIV Screening [facility] Start: 1964 Lipid panel Lipid Panel [facility] Start: 1964 Screening for malignant neoplasm of colon [facility] Cyclic citrullinated peptide IgG Ab [Units/volume] in Serum or Plasma [facility] Work Phone: End: 06-15-2023 Diagnostic mammography computer-aided detcj uni [facility] Rad[facility] Routine Breast pain in female 1 Occurrences starting 05/16/2022 until 06/15/2023 [facility] Work Phone: Comment on above: 1 Occurrences starting 05/16/2022 until 06/15/2023 End: 06-27-2023 Diagnostic mammography computer-aided detcj uni [facility] Radiology Routine Abnormal finding on radiological examination of breast 1 Occurrences starting 05/28/2022 until 06/27/2023 [facility] Work Phone: Comment on above: 1 Occurrences starting 05/28/2022 until 06/27/2023 DXA Bone [Mass/Area] Bone density [facility] Electroencephalogram [facility] HLA-B27 [Presence] b y SUZY with probe detection [facility] Work Phone: End: 12-15-2022 CONSTANCE SCREENING W CARLIN CONSTANCE SCREENING W CARLIN Radiology Routine Encounter for screening mammogram for malignant neoplasm of breast 1 Occurrences starting 11/15/2021 until 12/15/2022 [facility] Work Phone: Comment on above: 1 Occurrences starting 11/15/2021 until 12/15/2022 MR Brain WO and W contrast IV [facility] End: 11-23-2024 Screening colonoscopy COLONOSCOPY SCREENING Endoscopy Routine History of colonic polyps Encounter for screening for malignant neoplasm of colon 1 Occurrences starting 11/24/2023 until 11/23/2024 [facility] Work Phone: Comment on above: 1 Occurrences starting 11/24/2023 until 11/23/2024 End: 06-15-2023 Us breast uni real time with image limited [facility] Radiology Routine Breast pain in female 1 Occurrences starting 05/16/2022 until 06/15/2023 [facility] Work Phone: Comment on above: 1 Occurrences starting 05/16/2022 until 06/15/2023 End: 06-27-2023 Us breast uni real time with image limited [facility] Radiology Routine Abnormal finding on radiological examination of breast 1 Occurrences starting 05/28/2022 until 06/27/2023 [facility] Work Phone: Comment on above: 1 Occurrences starting 05/28/2022 until 06/27/2023 [facility] Immunizations Immunization Date Immunization Notes Care Provider Fa axel 08-18-2020 COVID-19 vaccine, fu ll dose (MODERNA) Jade Sourav FACTORY CLERK.HOD CARRIER Work Phone: [facility] Work Phone: 08-12-2020 COVID-19 vaccine, fu ll dose (MODERNA) Jade Sourav FACTORY CLERK.HOD CARRIER Work Phone: [facility] Work Phone: 07-15-2020 COVID-19 vaccine, fu ll dose (MODERNA) Jade Sourav FACTORY CLERK.HOD CARRIER Work Phone: [facility] Work Phone: 03-11-2017 influenza virus vaccine, unspecified formulation Jade Sourav FACTORY CLERK.HOD CARRIER Work Phone: [facility] 04-08-2014 tetanus toxoid, redu rory diphtheria toxoid, and acellular pertussis vaccine, adsorbed Jade Sourav FACTORY CLERK.HOD CARRIER Work Phone: [facility] Payers Date Payer Category Payer Unknown [id number] 2024 Unknown [id number] 2023 Self-pay [id number] 2022 Private Health Insurance [id number] 2022 Private Health Insurance [id number] 2015 Unknown [employer] PPO [id number] 2015-Present [phone] [address] [place] [address] PPO [id number] 2015 Unknown [employer] PPO [id number] 2015-Present [phone] [place] [id number] PPO [id number] 1964 Unknown [id number] 1964 Unknown [id number] 1964 Unknown [id number] Unknown [id number] Unknown [id number] Unknown [id number] Unknown [id number] Unknown [id number] Unknown [id number] Unknown [id number] Unknown [id number] Unknown [id number] Social History Date Type Detail Facility Start: 08-15-2020 End: 08-15-2020 Tobacco smoking status NEIS Unknown if ever smoked [facility] Start: 02-02-2015 None [facility] Start: 02-02-2015 Cigarettes [facility] Start: 1965 Sex Assigned At Female W [facility] Start: 11-13-2020 End: 02-19-2024 Tobacco smoking status NEIS Ex-smoker [facility] Work Phone: Start: 04-28-2004 End: 03-27-2020 History of tobacco use Current smoker [facility] Work Phone: Start: 04-28-2004 End: 03-27-2020 History of tobacco use Cigarette Smoker [facility] Work Phone: Start: 11-13-2020 End: 03-05-2024 Tobacco use and exposure Smokeless tobacco non-user [facility] Work Phone: Start: 11-15-2021 End: 03-05-2024 Alcohol intake Current non-drinker of alcohol (finding) [facility] Start: 05-02-2009 End: 05-16-2022 Tobacco Comment 5 CIGARETTES PER DAY [facility] Start: 1965 Sex Assigned At Not on file C [facility] Start: 11-05-2021 End: 12-06-2022 Exposure to SARS-CoV-2 (event) Not sure [facility] Work Phone: Start: 06-07-2022 End: 02-20-2023 Cigarettes smoked current (pack per day) - Reported 0.3 [facility] Start: 06-05-2022 End: 06-07-2022 Tobacco use and exposure User of smokeless tobacco [facility] [facility] Start: 06-05-2022 End: 06-07-2022 Alcohol intake Lifetime non-drinker (finding) [facility] Start: 06-07-2022 End: 02-20-2023 Tobacco use panel [facility] Start: 06-05-2022 Tobacco Comment Jadyn gross [facility] National Score (1-10 0), lower number is lower risk 73 [facility] Clinical Notes 10-26-2021 to 03-05-2024 Jade Ferguson APRN.CNP - 03/05/2024 3:12 PM PATRIZIA Hernandez CNP - 12/09/2023 10:30 AM Mally Love LPN - 11/24/2023 12:00 PM Mally Love LPN - 11/24/2023 12:00 PM EDT Note Date & Type Note Facility 03-05-2024 Note HNO ID: [id number] Author: JADE FERGUSON APRN.CNP Service: ? Author Type: Nurse Practitioner Type: Progress Notes Filed: 03/05/2024 16:01 Note Text: Ceramic Coater offered: Patient declines. Ricketts is a 59 year old who presents for an annual gynecologic exam without complaints. Postmenopausal: Yes HRT use: No. Last Pap: 08/20/2010 normal HPV: 07/26/2009 negative History of abnormal pap: No Last mammogram: 2023 normal History of abnormal mammogram: Yes , mammary duct ectasia Sexually active: No OB History T1 L3 SAB0 IAB0 Ectopic0 Multiple1 Live Births0 Comment: [employer]. 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 No bloating, early satiety, indigestion, or increased flatulence. Bladder: No dysuria, gross hematuria, urinary frequency, urinary urgency, or incontinence Breast: No breast lumps, nipple d/c, overlying skin changes, redness or skin retraction Allergies and current medication updated:Yes SENSITIVE EXAM: The sensitive examination was discussed with the Patient or Patient's Authorized Endless Steamer Tender. As applicable, any other physician, advance practice provider, medical student, or other health professional student that will be observing or involved in the sensitive examination for educational or training purposes was discussed with the Patient or Authorized Endless Steamer Tender. The Patient or Authorized Endless Steamer Tender has agreed to proceed with the sensitive examination. (Sensitive examination includes inspection and/or palpation of the breasts, pelvis, prostate and anorectal regions). EXAM: LMP 08/19/2010 GENERAL: pleasant, female in no apparent distress HEENT: Normocephalic, atraumatic, mucus membranes moist, and no lesions DERMATOLOGY: Normal, without lesions, non-icteric, and non-hirsute BREAST: soft, non-tender, symmetric, no dominant mass, normal nipple-areolar complex, no lymphadenopathy, and no nipple discharge CHEST: Normal inspiratory effort ABDOMEN: soft, non-tender, and no masses PELVIC: external genitalia normal, normal Bartholin's glands, urethra, [place]'s glands, no vulvar lesions, physiologic discharge present, normal appearing perineal body and perianal region, cervix surgically absent BIMANUAL: no adnexal masses, non-tender, and uterus surgically absent RECTOVAGINAL: deferred. NEURO: alert and oriented x3,exam grossly non-focal EXTREMITIES: normal ASSESSMENT/PLAN: 1) Health maintenance: Pap/HPV screening no longer needed Mammogram ordered Mammogram up to date Nutrition, exercise and routine health maintenance exams reviewed. Calcium/Vitamin D supplementation information provided. Colon cancer screening: up to date with screening done 2023 due 2028 2) Follow up one year or sooner as needed Jade Dinh (more content not included)... [facility] 03-05-2024 History of Present illness Narrative Ceramic Coater offered: Patient declines. Reymundo is a 59 year old who presents for an annual gynecologic exam without complaints. Postmenopausal: Yes HRT use: No. Last Pap: 08/20/2010 normal HPV: 07/26/2009 negative History of abnormal pap: No Last mammogram: 2023 normal History of abnormal mammogram: Yes , mammary duct ectasia Sexually active: No OB History T1 L3 SAB0 IAB0 Ectopic0 Multiple1 Live Births0 Comment: [employer]. 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 No bloating, early satiety, indigestion, or increased flatulence. Bladder: No dysuria, gross hematuria, urinary frequency, urinary urgency, or incontinence Breast: No breast lumps, nipple d/c, overlying skin changes, redness or skin retraction Allergies and current medication updated:Yes SENSITIVE EXAM: The sensitive examination was discussed with the Patient or Patient's Authorized Endless Steamer Tender. As applicable, any other physician, advance practice provider, medical student, or other health professional student that will be observing or involved in the sensitive examination for educational or training purposes was discussed with the Patient or Authorized Endless Steamer Tender. The Patient or Authorized Endless Steamer Tender has agreed to proceed with the sensitive examination. (Sensitive examination includes inspection and/or palpation of the breasts, pelvis, prostate and anorectal regions). EXAM: LMP 08/19/2010 GENERAL: pleasant, female in no apparent distress HEENT: Normocephalic, atraumatic, mucus membranes moist, and no lesions DERMATOLOGY: Normal, without lesions, non-icteric, and non-hirsute BREAST: soft, non-tender, symmetric, no dominant mass, normal nipple-areolar complex, no lymphadenopathy, and no nipple discharge CHEST: Normal inspiratory effort ABDOMEN: soft, non-tender, and no masses PELVIC: external genitalia normal, normal Bartholin's glands, urethra, [place]'s glands, no vulvar lesions, physiologic discharge present, normal appearing perineal body and perianal region, cervix surgically absent BIMANUAL: no adnexal masses, non-tender, and uterus surgically absent RECTOVAGINAL: deferred. NEURO: alert and oriented x3,exam grossly non-focal EXTREMITIES: normal ASSESSMENT/PLAN: 1) Health maintenance: Pap/HPV screening no longer needed Mammogram ordered Mammogram up to date Nutrition, exercise and routine health maintenance exams reviewed. Calcium/Vitamin D supplementation information provided. Colon cancer screening: up to date with screening done 2023 due 2028 2) Follow up one year or sooner as needed Jade Ferguson APRN.HOD CARRIER documented in this encounter [facility] 02-23-2024 Note [facility] Medical Records Department [address] [place] [id number] History Physical Exam 02/23/24 0907 MR#: [id number] Acct: [id number] Name: REYMUNDO ALANIS Rep #: [id number] : 1965 59 From: Chasekarthik Guadarrama PCP: Dr. Nathanael Frazier MD Status:[facility] Location: [place] [address] HPI - General General Date of Admission: 02/23/24 Date of Service: 02/23/24 Chief Complaint: Surveillance colonoscopy HPI Narrative REYMUNDO ALANIS, is a 59 F who presents today for surveillance colonoscopy. She has a past medical history of epilepsy, anxiety, depression, hyperlipidemia. She had a colonoscopy several years ago at [facility] and had a normal colonoscopy during that time. Her first colonoscopy did have adenomatous polyps. She is not having any abdominal pain, cramping, chest aching or shortness of breath. [facility] Medical History (Updated 02/19/24 @ 13:52 by Jase Barragan) Wears partial dentures Wears glasses Arthritis Hx of colonic polyps Epilepsy Generalized anxiety disorder Degenerative disc disease, cervical Allergic rhinitis Depression Lipidemia Home Medications ???Medication ???Instructions ???Recorded ???Last Taken ???Type atorvastatin 20 mg tablet 20 mg PO QHS 03/14/20 Unknown History citalopram 40 mg tablet 40 mg PO DAILY 03/14/20 Unknown History hydroxyzine HCl 25 mg tablet 25 mg PO DAILY PRN Anxiety 03/14/20 Unknown History aripiprazole 5 mg tablet (Abilify) 5 mg PO QDAY 01/05/24 Unknown History carbamazepine 200 mg tablet 200 mg PO TID 01/05/24 Unknown History gabapentin 100 mg capsule 100 mg PO QHS 01/05/24 Unknown History lorazepam 0.5 mg tablet (Ativan) 0.5 mg PO BID PRN anxiety 01/05/24 Unknown History propranolol 20 mg tablet 20 mg PO BID 01/05/24 Unknown History trazodone 50 mg tablet 100 mg PO QHS 01/05/24 Unknown History Allergy/AdvReac Type Severity Reaction Status Date / Time amoxicillin (From Augmentin) AdvReac Nausea/Vom/ Verified 02/19/24 13:43 Diarrhea clavulanic acid (From AdvReac Nausea/Vom/ Verified 02/19/24 13:43 Augmentin) Diarrhea Family History (Updated 01/05/24 @ 09:24 by Halle Perea) Grandmother Melanoma Mother Melanoma Breast cancer Colon polyps Grandfather Colon cancer, Onset Age: 48 at 48yrs Other No pertinent family history Surgical History Hx of colonoscopy H/O: hysterectomy Hx of cholecystectomy Social History (Updated 01/05/24 @ 09:27 by Halle Perea) household members: none current occupational status: employed current occupation: [employer] Smoking Status: Former smoker quit date: 03/28/20 pack-years: 20 substance use type: does not use ROS Review of Systems ROS Unobtainable: other Constitutional Constitutional: Denies fatigue, fever(s), poor appetite, weight gain or weight loss ENT HEENT: Denies mouth lesions Cardiovascular Cardiovascular: Denies abdominal bloating, abdominal edema or abdominal pain Respiratory/Chest Respiratory/Chest: Denies change in mental status, change in phlegm color, chest congestion or chest tightness Gastrointestinal Gastrointestinal: Denies belching, bloating, change in bowel habits, change in stool character, chewing difficulty, coffee ground emesis, constipation, cramping, diarrhea, dyspepsia, dysphagia, early satiety, excessive flatus, fecal incontinence, heartburn, hematemesis, hematochezia, hemorrhoids, loose stools, melena, nausea, odynophagia, rectal bleeding, tenesmus, vomiting or weight changes Genitourinary Genitourinary: Denies abdominal discomfort, burning urination or itching Musculoskeletal Musculoskeletal: Reports as per HPI; Denies muscle weakness or myalgias Integumentary Integumentary: Denies jaundice Neurologic Neurologic: Denies lack of coordination or weakness Psychiatric Psychiatric: Denies confusion, depression, memory loss, mood swings, paranoia or suicidal ideation Endocrine Endocrinology: Denies systems reviewed and no addt'l complaints, except as documented Hematologic/Lymphatic Hematologic/Lymphatic: Denies anemia, easy bleeding, easy bruising or lymphadenopathy Allergic/Immunologic Allergic/Immunologic: Denies systems reviewed and no addt'l complaints, except as documented Physical Exam Const alert General Appearance: cooperative Orientation / Consciousness: oriented to person HEENT hearing grossly normal bilaterally Head and Scalp: normal to inspection Face and Sinus: face symmetric Nose: external nose normal Mouth: oral and palatal mucosa normal Eyes conjunctivae normal General Eye: normal appearance of both eyes Neck full ROM General: normal visual inspection Lymph Lymphatic: no lymphadenopathy noted Chest inspection of chest normal and palpation of chest normal Chest: symmetrical chest wall rise Res (more content not included)... [facility] 12-09-2023 History of Present illness Narrative Chief Complaint Patient presents with 1 Year Follow-up Breast exam HPI: Reymundo Blankenship is a 58 y.o. female who presents for annual clinical breast exam Breast history: -05/23/2022: LEFT diagnostic mammogram/ultrasound ([facility]) demonstrated retroareolar ductal dilation -06/05/2022: She was seen in the breast center by Dr. Avalos. Repeat diagnostic imaging recommended -06/07/2022: She was seen at the breast center for genetic testing. -06/07/2022: [facility] [...] breast. -12/06/2022: Bilateral diagnostic mammogram/left breast ultrasound benign (BI-RADS 2) and demonstrate an interval decrease in ductal dilation and internal echoes which are consistent with benign debris. She was recommended to return to routine screening mammogram of both breasts in 1 year. -12/06/2022: She was seen for follow up at the breast center. She was still having some intermittent bilateral breast pain. -12/09/2023: Screening mammogram results not yet available. She has no breast history other than what is outlined above. Today, she still reports intermittent bilateral breast pain. She states she has had this on and off for years. She has no additional concerns today. She denies breast mass, skin change, nipple change, nipple discharge. No prior breast biopsy or breast surgery. Her lifetime risk of breast cancer estimated by the [employer] V8 model is 11.69%. Today, we discussed given her risk score and breast density, breast MRI not indicated per NCCN guidelines. She is agreeable to continue annual mammogram and clinical breast exam every 6-12 months. She would prefer to follow here at the breast under for annual mammogram and breast exam. She has a significant family history of cancer. See family history section of this note. She did have [employer] panel panel genetic testing 05/2022 which was negative for deleterious mutation. Results scanned into media dated 06/25/2022. She lost her unexpectedly at the end of November 2022. This has been understandably extremely difficult for her. She has a good support system and her children. She is also seeing a counselor regularly. Risk Factors: Menarche: 11 Age of first : 21; Menopause: Post; she had a hysterectomy in 2011 at the age of 46. She retains her ovaries. Physical Activity: She walks occasionally. We discussed the [place] [employer] recommends that adults get at least 150 minutes of moderate intensity or 75 minutes of vigorous intensity activity each week Nutrition: She has been trying to follow a healthy diet. We discussed a plant based diet and limiting added hormones in her meat and dairy. Weight: Stable; BMI 27.78 Smoking: She previously quit in 2012. She did resume smoking due to stress after the unexpected loss of her . She states she is smoking intermittently and knows she needs to quit. ETOH: None Breast Imaging: Screening mammogram 12/09/2023 - Results not yet available Family Cancer history includes: Mother with breast, pancreatic, liver cancer and melanoma age 79 Brother with prostate cancer age 60 Brother with testicular cancer age 53 Maternal grandmother with melanoma and bone cancer age 50 Maternal grandfather with colon cancer age 47 Maternal aunt with pancreatic cancer age 70 Past Medical History: Diagnosis Date Epilepsy (HCC) Fibromyalgia High cholesterol Rheumatoid arthritis (HCC) Past Surgical History: Procedure Laterality Date SECTION, [...] 108 (90 Base) MCG/ACT inhaler as needed. ARIPiprazole (Abilify) 5 MG tablet atorvastatin (Lipitor) 20 MG tablet carBAMazepine (TEGretol) 200 MG tablet 2 times daily. citalopram (CeleXA) 40 MG tablet gabapentin (Neurontin) 100 MG capsule Take 100 mg by mouth in the morning and 100 mg at noon and 100 mg in the evening. hydroxychloroquine (Plaquenil) 200 MG tablet Take 1.5 tablets by mouth daily. propranolol (Inderal) 20 MG tablet traZODone (Desyrel) 50 MG tablet 1 1/2 TABLET 30-60 MIN PRIOR TO SLEEP FOR INSOMNIA No current facility-administered medications on file prior to visit. Review of Systems: Review of Systems Constitutional: Negative. HENT: Negative. Eyes: Negative. Respiratory: Negative. Cardiovascular: Negative. Gastrointestinal: Negative. Endocrine: Negative. Genitourinary: Negative. Musculoskeletal: Negative. Skin: Negative. Allergic/Immunologic: Negative. Neurological: Negative. Hematological: Negative. Psychiatric/Behavioral: Positive for dysphoric mood (sad when talking about her passing last year). BP 102/59 (BP Location: Right arm, Patient Position: Sitting) Pulse 61 Temp 36.5 C (97.7 F) Resp 12 Ht 5' 1 (1.549 m) Wt 147 lb (66.7 kg) BMI 27.78 kg/m Physical Exam: Physical Exam Constitutional: General: She is not in acute distress. Appearance: Normal appearance. She is not ill-appearing. HENT: Head: Normocephalic and atraumatic. Pulmonary: Effort: Pulmonary effort is normal. No respiratory distress. Chest: Breasts: Breasts are symmetrical. Right: No inverted nipple, mass, nipple discharge, skin change or tenderness. Left: No inverted nipple, mass, nipple discharge, skin change or tenderness. Abdominal: Palpations: Abdomen is soft. Musculoskeletal: Cervical [...] Family history of breast cancer -She has completed negative genetic testing 2. Family history of pancreatic cancer -She has completed negative genetic testing 3. Encounter for screening mammogram for breast cancer -Call with today's results -She would prefer to continue to follow here at the breast under for annual mammogram and annual clinical breast exam. She prefers these visits on the same day due to her living far away -Follow up 1 year -Today, we discussed breast self awareness and breast cancer risk reduction strategies including plant based diet, aerobic exercise, maintaining healthy BMI, nicotine avoidance, alcohol limitation 4. Family history of prostate cancer -She has completed negative genetic testing 5. Family history of melanoma -She has completed negative genetic testing 6. Family history of colon cancer -She has completed negative genetic testing Call with any breast concerns or questions Reny Markham APRN - HOD CARRIER Please disregard any typographical errors. This note was dictated using voice recognition software. On this date, 12/09/2023 I have spent 20 minutes reviewing previous notes, test results and face to face with the patient discussing the diagnosis and importance of compliance with the treatment plan as well as documenting on the day of the visit. documented in this encounter [facility] 11-24-2023 Nurse Note Patient educated, patient verbalized understanding. No further questions at this time. Mally Hawkins LPN November 24, 2023 12:01 PM [facility] 11-24-2023 Nurse Note Patient educated, patient verbalized understanding. No further questions at this time. Mally Hawkins LPN November 24, 2023 12:01 PM REVIEW OF SYSTEMS: General: The patient denies fatigue, denies weight loss, denies weight gain, denies feeling hot, and denies feelings of cold. Eyes: The patient denies glaucoma, denies eye injury/surgery, does wear glasses or contacts. Ear/Nose/Throat: The patient denies allergies, NOTES hayfever, denies ear infections, and denies bloody noses. Cardiovascular: The patient denies chest pain, denies heart disease, NOTES high blood pressure,denies cardiac stent, denies prior heart attack, denies irregular heart beat, NOTES high cholesterol, denies poor circulation, denies heart failure, other cardiac issues, denies claudication, denies cold feet, denies peripheral arterial stent. Respiratory: The patient denies tuberculosis, denies pneumonia, denies frequent cough, denies pulmonary embolism, denies shortness of breath, and denies coughing up blood. Gastrointestinal: The patient denies difficulty swallowing, denies acid reflux, denies ulcers, denies vomiting, denies jaundice/hepatitis, denies gallbladder problems, denies black or tarry stools, denies hemorrhoids, denies bleeding from rectum, denies diverticulitis, NOTES constipation, denies diarrhea, denies loss of stool control, and denies hernias. Kidney/Bladder: The patient denies kidney stones, denies urine infections, and denies bloody urine. Skin: The patient denies a history of skin cancer, denies bleeding/changing moles, and denies a history of skin rash. Neurologic: The patient NOTES a history of epilepsy/convulsions, denies headaches, denies head/spinal injuries, and denies stroke/TIA. Psychiatric: The patient denies psychiatric medications, NOTES depression, and denies voices, denies substance abuse. Endocrine: The patient denies thyroid disorders, denies diabetes, and denies hormonal problems. Hematologic: The patient denies a history of bruising, denies bleeding, and denies anemia, NOTES blood clots. Infections: The patient denies a history of measles and mumps, denies rheumatic fever, and denies sexually transmitted diseases. Musculoskeletal: The patient denies back pain/injury, denies back problems, denies sciatica, denies knee/foot trouble, denies arthritis, or denies gout. When was patient's last Mammogram screening? 12/06/2022 Last Colonoscopy: 11/09/2018 Karla Pollard RN documented in this encounter [facility] 11-24-2023 Instructions Vernell Vanegas APRN.[facility] - 11/24/2023 11:47 AM EDT Images from the original note were not included. Bowel Preparation Instructions for: Miralax-Gatorade Preparations IF YOU DO NOT FOLLOW THESE DIRECTIONS, YOUR COLONOSCOPY WILL BE CANCELLED. Mtz Instructions: Your bowel must be empty so that your doctor can clearly view your colon. Follow all of the instructions in this handout EXACTLY as they are written. Do NOT eat any solid food the ENTIRE day before your colonoscopy. Buy your bowel preparation at least 5 days before your colonoscopy. Four (4) Dulcolax laxative tablets containing 5mg of bisacodyl each (NOT Dulcolax stool softener) One (1) 8.3oz. bottle Miralax (238 grams) or generic equivalent 2 x 32oz. Bottles of Gatorade (NOT RED) Diabetic Patients: Use G2 (Gatorade 2) TRANSPORTATION on the Day of Your Exam A responsible adult MUST be present with you at Check In prior to your colonoscopy and REMAIN in the endoscopy area until you are discharged. You are NOT ALLOWED to drive, take a taxi or bus, or leave the Endoscopy Center ALONE. If you do not have a responsible transit mixer driver (family member or friend) with you to take you home, your exam cannot be done with sedation and will be cancelled. Please bring a list of all of your current medications, including any [id number]-Pibodcp medications with you. Medications If you take insulin, diabetic medications or blood thinners such as Coumadin (warfarin), Plavix (clopidogrel), Ticlid (ticlopidine hydrochloride), Agrylin (anagrelide), Xarelto (Rivaroxaban), Pradaxa (Dabigatran), Eliquis (Apixaban), and Effient (Prasugrel). You MUST call the doctors who orders those medicines for instructions on altering the dosage before your colonoscopy. All other medications should be taken the day of the exam with a sip of water including ASPIRIN. Five (5) Days Before Your Colonoscopy Do NOT take medicines that stop diarrhea - such as Imodium, Kaopectate, or Pepto Bismol. Do NOT take fiber supplements - such as Metamucil, Citrucel, or Perdiem. Do NOT take products that contain iron - such as multi-vitamins (the label lists what is in the products). Three (3) Days Before Your Colonoscopy Do NOT eat high-fiber foods - such as popcorn, beans, seeds (flax, sunflower, quinoa), multigrain bread, nuts, salad/vegetables, or fresh and dried fruit. 1 Bowel Preparation Instructions for: Miralax-Gatorade Preparations One (1) Day Before Your Colonoscopy Only drink clear liquids the ENTIRE DAY before your colonoscopy. Do NOT eat any solid foods. Drink at least 8 ounces of clear liquids every hour after waking up. The clear liquids you can drink include: Clear Liquid (NO RED LIQUIDS) DO NOT DRINK Gatorade, Pedialyte or Powerade Clear broth or bouillon Coffee or tea (no milk or non-dairy creamer) Carbonated and non-carbonated soft drinks Darrell-Aid or other fruit flavored drinks Strained fruit juices (no pulp) Jell-O, popsicles, hard candy Water Alcohol Milk or non-dairy creamers Noodles or vegetables in soup Juice with pulp Liquid you cannot see through Do not use tobacco/vaping products Mix 1/2 of Miralax bottle (119 grams) in each 32 ounces of Gatorade bottle until dissolved. Keep cool in the refrigerator. DO NOT ADD ICE. The bowel preparation solution will be consumed in two parts. Part 1 5:00 PM - Evening before your colonoscopy Take 4 Dulcolax tablets. 6 PM - Evening before your colonoscopy Drink 32 oz. of the mixed solution. Drink an 8 oz. glass of bowel preparation every 15 minutes for a total of 4 glasses. Fifteen (15) minutes later, drink an 8 oz. glass of of clear liquids every 15 minutes for a total of 2 glasses. You may continue to drink clear liquids till midnight. Part 2 On the day of your colonoscopy you may drink clear liquids up to (three) 3 hours prior to procedure. 4 1/2 hours before your colonoscopy Take another 32 oz. bottle of mixed solution. Drink an 8 oz. glass of bowel prep every 15 minutes for a total of 4 glasses. Fifteen (15) minutes later, drink an 8 oz. glass of clear liquids every 15 minutes for a total of 2 glasses. You may continue to drink clear liquids up to (three) 3 hours before your exam. 2 03/2019 documented in this encounter [facility] 11-24-2023 Nurse Note REVIEW OF SYSTEMS: General: The patient denies fatigue, denies weight loss, denies weight gain, denies feeling hot, and denies feelings of cold. Eyes: The patient denies glaucoma, denies eye injury/surgery, does wear glasses or contacts. Ear/Nose/Throat: The patient denies allergies, NOTES hayfever, denies ear infections, and denies bloody noses. Cardiovascular: The patient denies chest pain, denies heart disease, NOTES high blood pressure,denies cardiac stent, denies prior heart attack, denies irregular heart beat, NOTES high cholesterol, denies poor circulation, denies heart failure, other cardiac issues, denies claudication, denies cold feet, denies peripheral arterial stent. Respiratory: The patient denies tuberculosis, denies pneumonia, denies frequent cough, denies pulmonary embolism, denies shortness of breath, and denies coughing up blood. Gastrointestinal: The patient denies difficulty swallowing, denies acid reflux, denies ulcers, denies vomiting, denies jaundice/hepatitis, denies gallbladder problems, denies black or tarry stools, denies hemorrhoids, denies bleeding from rectum, denies diverticulitis, NOTES constipation, denies diarrhea, denies loss of stool control, and denies hernias. Kidney/Bladder: The patient denies kidney stones, denies urine infections, and denies bloody urine. Skin: The patient denies a history of skin cancer, denies bleeding/changing moles, and denies a history of skin rash. Neurologic: The patient NOTES a history of epilepsy/convulsions, denies headaches, denies head/spinal injuries, and denies stroke/TIA. Psychiatric: The patient denies psychiatric medications, NOTES depression, and denies voices, denies substance abuse. Endocrine: The patient denies thyroid disorders, denies diabetes, and denies hormonal problems. Hematologic: The patient denies a history of bruising, denies bleeding, and denies anemia, NOTES blood clots. Infections: The patient denies a history of measles and mumps, denies rheumatic fever, and denies sexually transmitted diseases. Musculoskeletal: The patient denies back pain/injury, denies back problems, denies sciatica, denies knee/foot trouble, denies arthritis, or denies gout. When was patient's last Mammogram screening? 12/06/2022 Last Colonoscopy: 11/09/2018 Karla Pollard RN [facility] 11-24-2023 Note HNO ID: [id number] Author: VERNELL VANEGAS APRN.HOD CARRIER Service: ? Author Type: Nurse Practitioner Type: Progress Notes Filed: 11/24/2023 12:13 Note Text: HISTORY AND PHYSICAL Reymundo Blankenship : 1965 REFERRING PHYSICIAN: No referring provider defined for this encounter. CHIEF COMPLAINT: Patient presents with: Consult: colonoscopy HPI: Reymundo is a 58 year old female referred for endoscopy. Reymundo notes history of colonic polyps. Patient denies any change in bowel habits, weight changes, blood in stools, black tarry stools or abdominal pain. Refers family history of colon issues. Maternal grandfather with colon cancer Reymundo notes no upper GI complaints. Reymundo has a history of seizure disorder she is currently controlled on Tegretol BID. She does not follow with neurology, PCP has been managing her meds. She has not had any breakthrough seizures. Reymundo takes gabapentin and Celexa for arthritis. Reymundo has undergone prior endoscopy. Last colonoscopy was 11/09/[address] Allen. She received Fentanyl 100 micrograms IV, Midazolam 8 mg IV for sedation Impression: - The entire examined colon is normal. - No specimens collected. Current Outpatient Medications Medication Sig ARIPiprazole (ABILIFY) 5 mg tablet propranolol (INDERAL) 20 mg tablet hydrOXYzine HCl (ATARAX) 25 mg tablet hydrOXYchloroQUINE (PLAQUENIL) 200 mg tablet Take 1.5 tablets by mouth every afternoon. gabapentin (NEURONTIN) 100 mg capsule Take 100 mg by mouth three times a day. citalopram (CELEXA) 40 mg tablet acyclovir (ZOVIRAX) 400 mg tablet Take 1 [...] HR TAB) Take one tablet twice daily. No current facility-administered medications for this visit. ALLERGIES: Augmentin [Amoxicillin-Pot Clavulanate] and Seasonal Allergies PAST MEDICAL HISTORY Diagnosis Date DVT of upper extremity (deep vein thrombosis) (HCC) left arm Eczema Elevated cholesterol Epilepsy (HCC) Genital herpes, unspecified HTN (hypertension) Localization-related (focal) (partial) epilepsy and epileptic syndromes with simple partial seizures, without mention of intractable epilepsy SEIZURE DISORDER Mental disorder Rectocele Seasonal allergies Stress incontinence Uterovaginal prolapse PAST SURGICAL HISTORY Procedure Laterality Date DELIVERY [...] No Known Problems Son Diabetes Paternal Aunt Social History Tobacco Use Smoking status: Former Types: Cigarettes Quit date: 03/27/2020 Years since quittin.6 Smokeless tobacco: Never Vaping Use Vaping Use: Former Substance Use Topics Alcohol use: No Drug use: No REVIEW OF SYMPTOMS: The review of systems data was entered by the nurse and reviewed by nc Nursing Notes: Karla Pollard RN 11/24/2023 11:32 AM Addendum REVIEW OF SYSTEMS: General: The patient denies fatigue, denies weight loss, denies weight gain, denies feeling hot, and denies feelings of cold. Eyes: The patient denies glaucoma, denies eye injury/surgery, does wear glasses or contacts. Ear/Nose/Throat: The patient denies allergies, NOTES hayfever, denies ear infections, and denies bloody noses. Cardiovascular: The patient denies chest pain, denies heart disease, NOTES high blood pressure,denies cardiac stent, denies prior heart attack, denies irregular heart beat, NOTES high cholesterol, denies poor circulation, denies heart failure, other cardiac issues, denies claudication, denies cold feet, denies peripheral arterial stent. Respiratory: (more content not included)... [facility] 11-24-2023 History of Present illness Narrative HISTORY AND PHYSICAL Reymundo Blankenship : 1965 REFERRING PHYSICIAN: No referring provider defined for this encounter. CHIEF COMPLAINT: Patient presents with: Consult: colonoscopy HPI: Reymundo is a 58 year old female referred for endoscopy. Reymundo notes history of colonic polyps. Patient denies any change in bowel habits, weight changes, blood in stools, black tarry stools or abdominal pain. Refers family history of colon issues. Maternal grandfather with colon cancer Reymundo notes no upper GI complaints. Reymundo has a history of seizure disorder she is currently controlled on Tegretol BID. She does not follow with neurology, PCP has been managing her meds. She has not had any breakthrough seizures. Reymundo takes gabapentin and Celexa for arthritis. Reymundo has undergone prior endoscopy. Last colonoscopy was 11/09/[address] Allen. She received Fentanyl 100 micrograms IV, Midazolam 8 mg IV for sedation Impression: - The entire examined colon is normal. - No specimens collected. Current Outpatient Medications Medication Sig ARIPiprazole (ABILIFY) 5 mg tablet propranolol (INDERAL) 20 mg tablet hydrOXYzine HCl (ATARAX) 25 mg tablet hydrOXYchloroQUINE (PLAQUENIL) 200 mg tablet Take 1.5 tablets by mouth every afternoon. gabapentin (NEURONTIN) 100 mg capsule Take 100 mg by mouth three times a day. citalopram (CELEXA) 40 mg tablet acyclovir (ZOVIRAX) 400 mg tablet Take 1 [...] HR TAB) Take one tablet twice daily. No current facility-administered medications for this visit. ALLERGIES: Augmentin [Amoxicillin-Pot Clavulanate] and Seasonal Allergies PAST MEDICAL HISTORY Diagnosis Date DVT of upper extremity (deep vein thrombosis) (HCC) left arm Eczema Elevated cholesterol Epilepsy (HCC) Genital herpes, unspecified HTN (hypertension) Localization-related (focal) (partial) epilepsy and epileptic syndromes with simple partial seizures, without mention of intractable epilepsy SEIZURE DISORDER Mental disorder Rectocele Seasonal allergies Stress incontinence Uterovaginal prolapse PAST SURGICAL HISTORY Procedure Laterality Date DELIVERY [...] No Known Problems Son Diabetes Paternal Aunt Social History Tobacco Use Smoking status: Former Types: Cigarettes Quit date: 03/27/2020 Years since quittin.6 Smokeless tobacco: Never Vaping Use Vaping Use: Former Substance Use Topics Alcohol use: No Drug use: No REVIEW OF SYMPTOMS: The review of systems data was entered by the nurse and reviewed by nc Nursing Notes: Karla Pollard RN 11/24/2023 11:32 AM Addendum REVIEW OF SYSTEMS: General: The patient denies fatigue, denies weight loss, denies weight gain, denies feeling hot, and denies feelings of cold. Eyes: The patient denies glaucoma, denies eye injury/surgery, does wear glasses or contacts. Ear/Nose/Throat: The patient denies allergies, NOTES hayfever, denies ear infections, and denies bloody noses. Cardiovascular: The patient denies chest pain, denies heart disease, NOTES high blood pressure,denies cardiac stent, denies prior heart attack, denies irregular heart beat, NOTES high cholesterol, denies poor circulation, denies heart failure, other cardiac issues, denies claudication, denies cold feet, denies peripheral arterial stent. Respiratory: The patient denies tuberculosis, denies pneumonia, denies frequent cough, denies pulmonary embolism, denies shortness of breath, and denies coughing up blood. Gastrointestinal: The patient denies difficulty swallowing, denies acid reflux, denies ulcers, denies vomiting, denies jaundice/hepatitis, denies gallbladder problems, denies black or tarry stools, denies hemorrhoids, denies bleeding from rectum, denies diverticulitis, NOTES constipation, denies diarrhea, denies loss of stool control, and denies hernias. Kidney/Bladder: The patient denies kidney stones, denies urine infections, and denies bloody urine. Skin: The patient denies a history of skin cancer, denies bleeding/changing moles, and denies a history of skin rash. Neurologic: The patient NOTES a history of epilepsy/convulsions, denies headaches, denies head/spinal injuries, and denies stroke/TIA. Psychiatric: The patient denies psychiatric medications, NOTES depression, and denies voices, denies substance abuse. Endocrine: The patient denies thyroid disorders, denies diabetes, and denies hormonal problems. Hematologic: The patient denies a history of bruising, denies bleeding, and denies anemia, NOTES blood clots. Infections: The patient denies a history of measles and mumps, denies rheumatic fever, and denies sexually transmitted diseases. Musculoskeletal: The patient denies back pain/injury, denies back problems, denies sciatica, denies knee/foot trouble, denies arthritis, or denies gout. When was patient's last Mammogram screening? 12/06/2022 Last Colonoscopy: 11/09/2018 MARIA ESTHER Christensen Samaria, LPN 11/24/2023 12:01 PM Signed Patient educated, patient verbalized understanding. No further questions at this time. Mally Hawkins LPN November 24, 2023 12:01 PM PHYSICAL EXAMINATION: General: The patient is 58 year old, female well nourished, well hydrated in no acute distress. The patient is oriented to time, place, and person. VITALS: Blood pressure 118/72, pulse 78, temperature 36.7 C (98.1 F), height 154.9 cm (5' 1), weight 66.8 kg (147 lb 3.2 oz), last menstrual period 08/19/2010, SpO2 98%. Body mass index is 27.81 kg/m . HEENT: Normal cephalic, ataumatic, pupils are equally round, sclera are anicteric, mucous membranes are moist, oropharynx is clear. Neck has no masses, asymmetry or lymphadenopathy. Respiratory: Clear to auscultation and percussion. Normal respiratory excursion and pattern. Cardiac: Examination is regular rate and rhythm. Normal S1/S2 Abdominal exam: Soft, nontender, with no palpable masses. No hepatosplenomegaly. No palpable hernias. Extremities: no clubbing, cyanosis or edema. No adenopathy. LABORATORY VALUES: As Noted RADIOLOGIC STUDIES: As Noted Assessment IMPRESSION: History of colonic polyps, screening for colon cancer PLAN: I have reviewed my findings with the surgeon. Will plan for lower endoscopy. We discussed the risks and benefits of the planned endoscopy. I have informed the patient that complications can occur including failure to complete the endoscopy and perforation. Reymundo had the opportunity to ask questions concerning the planned endoscopy. My staff has also explained the procedure to the patient in understandable terms and has given the patient printed material concerning the procedure. Reymundo freely consents to surgery. I plan to use Miralax bowel preparation with 2 days of clear liquids I have explained to the patient the difference between IV conscious sedation and MAC anesthesia - and I have offered either, according to the patient's wishes. I have explained that with IV conscious sedation there is no anesthesia provider available and therefore there is a limitation of the amount of IV medications that can be given and that the patient may wake up in the middle of the procedure and/or experience pain/discomfort during the procedure. Further discussion was done and the patient was given the opportunity to ask questions and all questions were answered. I recommend MAC anesthesia due to seizure disorder and mental health medications to prevent under sedation. Reymundo would like to take time to think about going to either [place] or my [place] and is to call back to the office Reymundo was counseled that if there are changes in his/her medical condition, to let the office know if surgery should proceed. If there are changes in patient's medical condition from time of this encounter to the day of the procedure that preclude anesthesia, patient may have procedure cancelled for patient's safety. Diagnoses: (Z86.010) History of colonic polyps (primary encounter diagnosis) (Z12.11) Encounter for screening for malignant neoplasm of colon Portions of this documentation were copied and pasted from previous office visit notes in order to provide a cohesive continuity of the history. The note has been reviewed and edited and updated as necessary. Vernell Vanegas APRN.RENALDO documented in this encounter [facility] 02-20-2023 Instructions Laney Murphy APRN.RENALDO - 02/20/2023 4:15 PM EDT Calcium and Vitamin D Supplementation (from the National Institutes of Health Office of Dietary Supplements 2011) Calcium is required by the body for [...] salmon and sardines and vegetables, such as Tajik cabbage, kale, and broccoli. Foods fortified with [...] acid, calcium carbonate is found in some [id number] antacid products, such as Tums and Rolaids [...] doctor. documented in this encounter [facility] 02-20-2023 History of Present illness Narrative Reymundo is a 58 year old who presents for an annual gynecologic exam without complaints. Has history of abnormal mammograms and strong family history of cancer - mammograms managed by [facility]. Had genetic testing done as well. Patient [...] Ectopic0 Multiple1 Live Births0 Comment: [employer]. [employer] History LMP: 08/19/2010, Hysterectomy Age at Menarche: Age at First : Age at Menopause: [employer] History Comments: Sexual Activity: Not Currently; Male; [...] external genitalia normal, normal Bartholin's glands, urethra, [place]'s glands, no vulvar lesions, good vaginal support, [...] or sooner as needed Laney Murphy APRN.RENALDO Ferguson APRN.HOD CARRIER documented in this encounter [facility] 01-15-2023 Miscellaneous Notes Patient has yearly exam 02/20/2023. Requesting refill of Acyclovir documented in this encounter [facility] 12-06-2022 History of Present illness Narrative Images from the original note were not included. Chief Complaint Patient presents with 6 Month Follow-up Left breast pain that comes and goes, right breast pain that is less frequent HPI: Reymundo Blankenship is a 57 y.o. female who [...] section of this note. She did have [employer] panel panel genetic testing 05/2022 which [...] She is requesting a referral to a solicitor patent here at [facility]. Risk Factors: Menarche: 11 Age of first : 21; Menopause: Post Physical Activity: She was previously limited due to an ankle injury but plans to begin walking. We discussed the [place] [employer] recommends that adults get at [...] Procedure Laterality Date SECTION, CLASSIC 1992 CHOLECYSTECTOMY 2005 FOOT SURGERY Left 10/2021 left ankle neuroma [...] in this encounter [facility] 12-06-2022 Instructions PATRIZIA Gavin CNP - 12/06/2022 [...] associated with physical activity is 12% -The [place] [employer] recommends that adults get at [...] sugar and cholesterol. documented in this encounter [facility] 06-05-2022 History of Present illness Narrative Images from the original note were not included. Chief Complaint Patient presents with New Patient Evaluation for abnormal imaging-pt states that she has had left breast pain for the last 4 months History of Present Illness: Reymundo Blankenship is a 57 y.o. female here for evaluation of left breast pain x 4 mos and abnormal imaging ( US left breast ) She denies any breast masses or nipple discharge No skin changes The patient's medical history, reproductive history, breast history and family history have been reviewed. Using Code[employer] software, the family genogram has been generated and reviewed. A complete risk assessment has been performed using validated statistical models. The lifetime risk of breast cancer estimated by the Tyrer Cuzick v7 model is 15%. The estimated risk of a BRCA 1/2 mutation predicted by BRCAPRO is 9%. The estimated risk of a mutation in an HNPCC related gene is 0.2. The patient does meet NCCN criteria for genetic testing for hereditary cancer. Breast density C Mother had breast cancer, melanoma, pancreatic cancer Brother had prostate cancer at 60 Brother testicular cancer age 53 Maternal grandmother melanoma Maternal aunt pancreatic cancer Bmi 27 postmenopausal Imaging: Screening mammogram 11/15/21 [facility], report copied below, LEFT diagnostic mammogram and ultrasound 05/23/22 [facility], reports in media PT TO [facility]ING [facility] DISC TO APPOINTMENT Provider, [facility] - 11/15/2021 * * *Final Report* * * DATE OF EXAM: Nov 15 2021 8:20AM [id number] SCREENING [facility] / PROCEDURE REASON: Encounter for screening mammogram for breast cancer * * * * Physician Interpretation * * * * RESULT: #[id number] - CONSTANCE SCREENING W CARLIN BILATERAL DIGITAL SCREENING MAMMOGRAM TOMOSYNTHESIS WITH CAD: 11/15/2021 HISTORY: Encounter For Screening Mammogram For Breast Cancer /Screening Mammogram-Patient reports NO symptoms. /priors available for comparison /SEE TECH NOTE. RESULT: TECHNIQUE: The study was acquired using full field digital technology and interpreted from soft copy. Digital Breast Tomosynthesis (DBT) images were obtained and used to assist in the interpretation of this examination. Current study was also evaluated with a Computer Aided Detection (CAD). Comparison is made to exams dated: 11/13/2020 mammogram and 10/08/2019 mammogram - [facility]. The tissue of both breasts is heterogeneously dense. This may lower the sensitivity of mammography. The technologist notes that the patient was difficult to position. The best images possible were obtained. No significant masses, calcifications, or other findings are seen in either breast. IMPRESSION IMPRESSION: BENIGN FINDING There is no mammographic evidence of malignancy. A 1 year screening mammogram is recommended. Jose garland/tayla:11/15/2021 10:21:18 Communications And Signals Supervisor(s): Nikki Strange, [facility] letter sent: Normal over 40 Mammogram BI-RADS: 2 Benign finding ULTRASOUND 05/13/22 done for LEFT breast pain US left retroareolar region: dilated ducts with possible echogenic foci- ductogram recommended from outside- [facility]- category 0 LEFT Dx mammogram: scattered areas of fibroglandular density- stable mammogram Review of Systems: Review of Systems Constitutional: Negative for appetite change, diaphoresis, fatigue, fever and unexpected weight change. HENT: Negative for trouble swallowing and voice change. Eyes: Negative for visual disturbance. Respiratory: Negative for apnea, cough, choking, shortness of breath and stridor. Cardiovascular: Negative for chest pain. Endocrine: Negative for cold intolerance and heat intolerance. Musculoskeletal: Positive for arthralgias. Negative for joint swelling, myalgias and neck pain. Skin: Negative for color change and rash. Allergic/Immunologic: Negative for immunocompromised state. Neurological: Positive for seizures (history of seizures). Negative for dizziness, tremors, weakness, numbness and headaches. Hematological: Negative for adenopathy. Psychiatric/Behavioral: Negative for decreased concentration and dysphoric mood. The patient is nervous/anxious. Past Medical History: Diagnosis Date Epilepsy (HCC) High cholesterol Past Surgical History: Procedure Laterality Date SECTION, CLASSIC 1992 CHOLECYSTECTOMY 2004 FOOT SURGERY Left 10/2021 left ankle neuroma removal HYSTERECTOMY 2011 and they tacked the bladder at the same time Allergies Allergen Reactions Amoxicillin Other reaction(s): Nausea Amoxicillin-Pot Clavulanate Other reaction(s): GI Upset, GI Upset Clavulanic Acid Other reaction(s): Nausea Temp 36.3 C (97.3 F) Ht 5' 2 (1.575 m) Wt 151 lb (68.5 kg) BMI 27.62 kg/m Current Outpatient Medications on File Prior to Visit Medication Sig Dispense Refill albuterol 108 (90 Base) MCG/ACT inhaler as needed. atorvastatin (Lipitor) 20 MG tablet carBAMazepine (TEGretol) 200 MG tablet 2 times daily. citalopram (CeleXA) 40 MG tablet traZODone (Desyrel) 50 MG tablet 1 1/2 TABLET 30-60 MIN PRIOR TO SLEEP FOR INSOMNIA No current facility-administered medications on file prior to visit. Physical Exam: Physical Exam Constitutional: Appearance: Normal appearance. She is normal weight. HENT: Head: Normocephalic and atraumatic. Eyes: Extraocular Movements: Extraocular movements intact. Conjunctiva/sclera: Conjunctivae normal. Pupils: Pupils are equal, round, and reactive to light. Cardiovascular: Rate and Rhythm: Normal rate and regular rhythm. Pulses: Normal pulses. Pulmonary: Effort: Pulmonary effort is normal. Breath sounds: Normal breath sounds. No stridor. Chest: Chest wall: Tenderness present. No deformity or edema. Breasts: Breasts are symmetrical. Right: Tenderness present. No swelling, inverted nipple, mass, nipple discharge or skin change. Left: Tenderness present. No swelling, inverted nipple, mass, nipple discharge or skin change. Musculoskeletal: General: No swelling, tenderness or deformity. Normal range of motion. Cervical back: Normal range of motion and neck supple. No rigidity or tenderness. Right lower leg: No edema. Left lower leg: No edema. Lymphadenopathy: Cervical: No cervical adenopathy. Right cervical: No superficial, deep or posterior cervical adenopathy. Left cervical: No superficial, deep or posterior cervical adenopathy. Upper Body: Right upper body: No supraclavicular, axillary or pectoral adenopathy. Left upper body: No supraclavicular, axillary or pectoral adenopathy. Skin: General: Skin is warm and dry. Coloration: Skin is not jaundiced or pale. Findings: No erythema, lesion or rash. Neurological: General: No focal deficit present. Mental Status: She is alert and oriented to person, place, and time. Motor: No weakness. Gait: Gait normal. Psychiatric: Mood and Affect: Mood normal. Behavior: Behavior normal. Thought Content: Thought content normal. Assessment: 1. Mammary duct ectasia of left breast 2. Family history of pancreatic cancer 3. Family history of melanoma 4. Dense breasts 5. Mastodynia of left breast 6. Costochondritis Plan: Orders Placed This Encounter Procedures Left breast US limited She meets criteria for genetic testing Repeat US left breast - ductogram no longer recommended Motrin as directed Evening primrose oil as directed Anirudh Avalos MD 06/05/2022 Please disregard any typographical errors. This note was dictated using voice recognition software. documented in this encounter [facility] 06-05-2022 Instructions Bebe Arias - 06/05/2022 1:30 PM EST Breast imaging disc from [facility] taken to [employer] [facility] to be loaded into [employer] [facility] Reymundo is scheduled for left breast ultrasound 06/07/22 documented in this encounter [facility] 06-04-2022 Miscellaneous Notes Noted. Thank you, Jade Ferguson APRN.HOD CARRIER Encounter can be closed. Spoke with pt to see if the breast center had gotten hold of her to [...] call from nurse Martin from the [facility], stated that they received the report for her mammogram, ultrasound and uploaded images from [facility]. It will take a couple days for radiologist to review and then their office will contact pt to schedule procedure. Pt has been updated as to where we are in getting her scheduled. Please leave note open until can see that appointment has been scheduled. Yessenia Murcia LPN Spoke with pt and explained results and testing needed. [facility] returned call and they are uploading the images into our system so the radiologist can view these. Message sent to Nurse Martin at the [facility] that those images will be available to their office. Will await further directives. Yessenia Murcia LPN Spoke with Socorro Arechiga at [facility]. [phone]. Report from mammogram and breast ultrasound faxed to that office at [phone]. The Radiologist needs to review her report as well as needing a disc of her actual films. The radiologist will then decide how to proceed from that point and contact the pt. [facility] mammography dept contacted to obtain disc of films done 05/23/22, message left asking for a return call and all that was needed. Will await return call from their office. Yessenia Murcia LPN Working on ordering correct testing. Jade Ferguson APRN.CNP Patient had mammogram done at [facility]. Asking about her results. States [facility] was to fax the results to our office yesterday. Needs additional imaging. Result printed from [employer]. In provider's mailbox to review. Ciera Quispe RN documented in this encounter [facility] 05-28-2022 History of Present illness Narrative I am asked to review outside imaging on this patient prior to scheduling possible imaging/procedure at [facility]. She presented 05/23/2022 for evaluation of [...] time. documented in this encounter [facility] 05-16-2022 Instructions Jade Ferguson APRN.RENALDO - 05/16/2022 3:34 PM EST Management of Benign Breast Pain / Fibrocystic Changes Decrease or avoid intake of caffeine, including coffee, teas, sodas, and chocolate. Decrease or avoid nicotine. Wear a support or sports (not underwire) bra. Take eimz-iff-tmkbvrd ibuprofen (Advil/Motrin) or other NSAIDs, such as naproxen (Aleve). Take 3 grams (3000 mg.) of evening primrose oil (available ekvb-fes-ykeblqe) in divided doses for 2 months. Take warm showers. Use warm compresses. documented in this encounter [facility] 05-16-2022 History of Present illness Narrative BREAST [place] HISTORY: This is a 57 year old female Presents with mastalgia left Tenderness Yes, left lower breast and nipple area x 4 months Any history breast mass No Caffeine use Yes 5 cups/day Last [id number] normal Any previous breast surgery No Any [...] Fibrocystic breast education given to pt Jade Ferguson APRN.RENALDO Medical Decision Making: Problems: Low: Acute, uncomplicated illness or injury Data: Unique test(s) ordered: 2 Risk: Low: Low risk from testing/treatment Medical Decision Making Level: 3 - Low documented in this encounter [facility] 01-31-2022 Miscellaneous Notes Patient changed insurance. Needs prescription sent to [facility] Mail order. RX pending. Requested Prescriptions Pending Prescriptions Disp Refills acyclovir (ZOVIRAX) 400 mg tablet 180 tablet 2 Sig: Take 1 tablet by mouth twice daily. documented in this encounter [facility] 11-15-2021 Miscellaneous Notes November 15, 2021 PID: [id number] Reymundo Blankenship [address] [place] [address] Dear Ms. Blankesnhip, We are pleased to inform you that [...] be kept on file at [facility] as part of your permanent medical record and are available for your continuing care. Thank you for allowing us to help in meeting your health care needs. Sincerely, Dr. Tatum Interpreting Radiologist [facility] (Normal over 40) documented in this encounter [facility] 11-15-2021 History of Present illness Narrative Radiology Service Progress Note PATIENT NAME: Reymundo Blankenship DATE OF SERVICE: November 15, 2021 [...] AM documented in this encounter [facility] 11-15-2021 History of Present illness Narrative Reymundo is a 56 year old who presents [...] Ectopic0 Multiple1 Live Births0 Comment: [employer]. [employer] History LMP: 08/19/2010, Hysterectomy Age at Menarche: Age at First : Age at Menopause: [employer] History Comments: Sexual Activity: Not Currently; Male; [...] ONLY [facility] DELIVERY COLONOSCOP W/ OR W/O [facility] 09/01/2013 Colonoscopy COLONOSCOP W/ OR W/O [facility] 11/09/2018 Colonoscopy EXTENSIVE FINGER SURGERY 12/2012 [...] external genitalia normal, normal Bartholin's glands, urethra, [place]'s glands, no vulvar lesions, good vaginal support, [...] one year or sooner as needed Jade Ferguson APRN.HOD CARRIER documented in this encounter [facility] 10-26-2021 Note [facility] HISTORY & PHYSICAL NAME ACCOUNT SEX AGE ADMIT DISCHARGE PT MED. RECORD# NUMBER DATE DATE TYPE REYMUNDO BLANKENSHIP [id number] F 56 10/25/21 10/25/21 2 L [id number] ROOM: DATE OF : 63 DICTATING PHYSICIAN: Manju Russell PREOPERATIVE DIAGNOSES: 1. Painful neuroma of left [...] the morning of October 26, 2021, at [facility]. Dictated By: Manju Russell DPM 10/25/21 17:11 JOB #: [id number] Transcribed By: isadora 10/25/21 18:05 Electronically signed by: E-SIGN MANJU RUSSELL Page 1 of 2 REYMUNDO BLANKENSHIP KELLY L :1965 10/26/21 10:04 Update to H&P: [ ] No changes: I have examined the patient and reviewed the H&P and there are no changes. [ ] As previously dictated with the following changes: PHYSICIAN SIGNATURE: TIME: DATE: Page 2 of 2 REYMUNDO BLANKENSHIP [facility] Evaluation note No assessment inform ation available [facility] Work Phone: Evaluation note Diagnosis Encounter for gynecological examination (general) (routine) without abnormal findings- Primary Encounter for screening mammogram for malignant neoplasm of breast Other screening mammogram [facility] Encounter for screening mammogram for breast cancer [facility] Diagnosis Breast pain in female- Primary Mastodynia [facility] Diagnosis Abnormal finding on radiological examination of breast- Primary Other (abnormal) findings on radiological examination of breast [facility] Diagnosis Dense breasts Inconclusive mammogram Family history of breast cancer Family history of malignant neoplasm of breast [facility] Diagnosis Family history of breast cancer- Primary Family history of malignant neoplasm of breast Encounter for screening mammogram for breast cancer Breast pain Mastodynia Family history of pancreatic cancer Family history of malignant neoplasm of gastrointestinal tract Rheumatoid arthritis, involving unspecified site, unspecified whether rheumatoid factor present (HCC) [facility] Diagnosis Mammary duct ectasia of left breast [facility] Diagnosis Encounter for gynecological examination (general) (routine) without abnormal findings- Primary [facility] History of colonic polyps- Primary Personal history of colonic polyps Encounter for screening for malignant neoplasm of colon Special screening for malignant neoplasms, colon [facility] Diagnosis Family history of breast cancer- Primary Family history of malignant neoplasm of breast Family history of pancreatic cancer Family history of malignant neoplasm of gastrointestinal tract Encounter for screening mammogram for breast cancer Family history of prostate cancer Family history of malignant neoplasm of prostate Family history of melanoma Family history of other specified malignant neoplasm Family history of colon cancer Family history of malignant neoplasm of gastrointestinal tract Encounter for examination and observation for other specified reasons [facility] Diagnosis Encounter for screening mammogram for breast cancer [facility] Diagnosis Encounter for gynecological examination (general) (routine) without abnormal findings- Primary Encounter for screening mammogram for breast cancer [facility] Diagnosis Mammary duct ectasia of left breast- Primary Family history of pancreatic cancer Family history of malignant neoplasm of gastrointestinal tract Family history of melanoma Family history of other specified malignant neoplasm Dense breasts Inconclusive mammogram Mastodynia of left breast 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[facility] Diagnosis Onset Date Resolution Status Admit Date Epilepsy acute November 04 8:49am [employer] Work Phone: [facility] for referral (narrative)* Diagnostic Procedure Only (Routine) - Pending Review Specialty Diagnoses / Procedures Referred By Shady taylor Referred To Contact [facility] Diagnoses Encounter for screening mammogram for malignant neoplasm of breast Procedures CONSTANCE SCREENING W CALRIN SCREENING DIGITAL BREAST TOMOSYNTHESIS BI SCREENING MAMMOGRAPHY BI 2-VIEW BREAST INC CAD Jade Ferguson APRN.HOD CARRIER [address] [place] [address] [facility] [place] [address] Referral ID Status Reason Start Date Expiration Date Visits Requested Visits Authorized [id number] Pending Review Auto-Generat ed Referral 11/15/2021 12/15/2022 1 1 [facility] for referral (narrative)* Diagnostic Procedure Only (Routine) - Pending Review Specialty Diagnoses / Procedures Referred By Shady taylor Referred To Contact [facility] Diagnoses Breast pain in female Procedures US BREAST LTD LT US BREAST UNI REAL TIME WITH IMAGE LIMITED Jade Ferguson APRN.CNP [address] [place] [address] [facility] [address] [place] [address] Referral ID Status Reason Start Date Expiration Date Visits Requested Visits Authorized [id number] Pending Review Auto-Generat ed Referral 05/16/2022 06/15/2023 1 1 * Diagnostic Procedure Only (Routine) - Pending Review Specialty Diagnoses / Procedures Referred By Contac t Referred To Contact [facility] Diagnoses Breast pain in female Procedures CONSTANCE DIAGNOSTIC LT DIAGNOSTIC MAMMOGRAPHY COMPUTER-AIDED DETCJ Jade Serna APRN.CNP [address] [place] [address] [facility] [address] [place] [address] Referral ID Status Reason Start Date Expiration Date Visits Requested Visits Authorized [id number] Pending Review Auto-Generat ed Referral 05/16/2022 06/15/2023 1 1 [facility] for referral (narrative)* Diagnostic Procedure Only (Routine) - Pending Review Specialty Diagnoses / Procedures Referred By Contac t Referred To Contact [facility] Diagnoses Abnormal finding on radiological examination of breast Procedures US BREAST LTD LT US BREAST UNI REAL TIME WITH IMAGE LIMITED Lacy Negron MD [address] [place] [address] [facility] [address] [place] [address] Referral ID Status Reason Start Date Expiration Date Visits Requested Visits Authorized [id number] Pending Review Auto-Generat ed Referral 05/28/2022 06/27/2023 1 1 * Diagnostic Procedure Only (Routine) - Pending Review Specialty Diagnoses / Procedures Referred By Contac t Referred To Contact [facility] Diagnoses Abnormal finding on radiological examination of breast Procedures CONSTANCE DIAGNOSTIC LT DIAGNOSTIC MAMMOGRAPHY COMPUTER-AIDED DETCJ UNI Lacy Negron MD [address] [place] [address] [facility] [address] [place] [address] Referral ID Status Reason Start Date Expiration Date Visits Requested Visits Authorized [id number] Pending Review Auto-Generat ed Referral 05/28/2022 06/27/2023 1 1 [facility] for referral (narrative)* Consultation (Routine) - Pending Review Specialty Diagnoses / Procedures Referred By Shady t Referred To Contact Rheumatology Diagnoses Rheumatoid arthritis, involving unspecified site, unspecified whether rheumatoid factor present (HCC) Procedures [place] OFFICE/OUTPATIENT NEW HIGH MDM 60-74 MINUTES Reny Markham APRN - CNP [address] [place] [address] [facility] [address] [place] [address] Referral ID Status Reason Start Date Expiration Date Visits Requested Visits Authorized [id number] Pending Review Specialty Services Required 12/06/2022 12/06/2023 1 1 [facility] for referral (narrative)* Outpatient Procedure (Routine) - New Request Specialty Diagnoses / Procedures Referred By Shady taylor Referred To Contact [facility] Diagnoses History of colonic polyps Encounter for screening for malignant neoplasm of colon Procedures COLONOSCOPY SCREENING COLONOSCOPY FLX DX W/COLLJ SPEC WHEN Vernell Baca APRN.HOD CARRIER [address] [place] [address] [facility] [address] [place] [address] Referral ID Status Reason Start Date Expiration Date Visits Requested Visits Authorized [id number] New Request Auto-Generat ed Referral 11/24/2023 11/23/2024 1 1 [facility] for referral (narrative)* Diagnostic Procedure Only (Routine) - Authorized Specialty Diagnoses / Procedures Referred By Shady taylor Referred To Contact [facility] Diagnoses Encounter for screening mammogram for breast cancer Procedures CONSTANCE SCREENING W CARLIN SCREENING DIGITAL BREAST TOMOSYNTHESIS BI SCREENING MAMMOGRAPHY BI 2-VIEW BREAST INC CAD Jade Ferguson APRN.HOD CARRIER [address] [place] [address] [facility] [address] [place] [address] Referral ID Status Reason Start Date Expiration Date Visits Requested Visits Authorized [id number] Authorized Auto-Generat ed Referral 12/08/2024 04/04/2025 1 1 [facility] for referral (narrative)No reason for referral information [facility] Work Phone: Family History Relationship Condition Age at Onset Recorded Date/T santa Not Specified No pertinent family history Unknown grandmother Malignant melanoma Unknown mother Malignant melanoma Unknown Malignant neoplasm of breast Unknown Relationship Condition Age at Onset Recorded Date/T santa Not Specified No pertinent family history Unknown grandmother Malignant melanoma Unknown mother Malignant melanoma Unknown Malignant neoplasm of breast Unknown Polyp of colon Unknown grandfather Malignant neoplasm of colon 48 Advance Directives Advance Directive Response Recorded Date/ Time Advance Directives No February 02, 2015 9:54am Living Will Yes March 14 5:34am Power of Honey Processor Yes March 14, 2020 5:34am Documents on File Type Date Recorded 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 Yes March 14, 2020 5:34am Advance Directives No February 02, 2015 9:54am Summary Purpose Chief Complaint and Reason for Visit Chief Complaint PAIN IN ARM REFERRED SELF / THERESA Chief Complaint REFERRED SELF / GRAN T EORDER FROM [place]I SNOW Chief Complaint EORDER FROM [place] SNOW Chief Complaint Admit Date FAMILY HX OF HEART DISEASE July 20 6:40am FAMILY HX OF HEART DISEASE July 20 7:55am Chief Complaint Admit Date FAMILY HX OF HEART DISEASE July 20 6:40am FAMILY HX OF HEART DISEASE July 20 7:55am EPILEPSY November 04, 2024 8:49 am Reason for Visit Admit Date Epilepsy November 04, 2024 8:49 am Reason for Referral Specialty Diagnoses / Procedures Referred By Shady t Referred To Contact Radiology Diagnoses Dense breasts Family history of breast cancer Procedures BI MR fast breast bilateral w/wo contrast Reny Markham, FACTORY CLERK - HOD CARRIER [address] [place] [address] Referral ID Status Reason Start Date Expiration Date Visits Re quested Visits Authorized [id number] Closed 06/07/2022 12/04/2022 1 1 Additional Source Comments Goals (unrecognized section and content) Goals may be documented in a n alternate sectionGoals may be documented in an alternate sectionGoals may be documented in an alternate sectionGoals may be documented in an alternate sectionGoals may be documented in an alternate sectionGoals may be documented in an alternate sectionGoals may be documented in an alternate sectionGoals may be documented in an alternate sectionGoals may be documented in an alternate sectionGoals may be documented in an alternate sectionGoals may be documented in an alternate section INFORMATION SOURCE (unrecogn ized section and content) DATE CREATED AUTHOR 11/01/2021 [facility] DATE CREATED AUTHOR AUTHOR'S ORGANIZ ATION 11/01/2021 [facility] DATE CREATED AUTHOR AUTHOR'S ORGANIZ ATION 12/10/2023 [facility] DATE CREATED AUTHOR AUTHOR'S ORGANIZ ATION 03/07/2024 [facility] DATE CREATED AUTHOR AUTHOR'S ORGANIZ ATION 10/09/2024 [facility] Source Comments (unrecognize d section and content) In the event this informatio n is protected by the Federal Confidentiality of Alcohol and Drug Abuse Patient Records regulations: The Federal rules restrict any use of the information to criminally investigate or prosecute any alcohol or drug abuse patient.[facility] event this information is protected by the Federal Confidentiality of Alcohol and Drug Abuse Patient Records regulations: The Federal rules restrict any use of the information to criminally investigate or prosecute any alcohol or drug abuse patient.[facility] the event this information is protected by the Federal Confidentiality of Alcohol and Drug Abuse Patient Records regulations: The Federal rules restrict any use of the information to criminally investigate or prosecute any alcohol or drug abuse patient.[facility] the event this information is protected by the Federal Confidentiality of Alcohol and Drug Abuse Patient Records regulations: The Federal rules restrict any use of the information to criminally investigate or prosecute any alcohol or drug abuse patient.[facility] the event this information is protected by the Federal Confidentiality of Alcohol and Drug Abuse Patient Records regulations: The Federal rules restrict any use of the information to criminally investigate or prosecute any alcohol or drug abuse patient.[facility] the event this information is protected by the Federal Confidentiality of Alcohol and Drug Abuse Patient Records regulations: The Federal rules restrict any use of the information to criminally investigate or prosecute any alcohol or drug abuse patient.[facility] the event this information is protected by the Federal Confidentiality of Alcohol and Drug Abuse Patient Records regulations: The Federal rules restrict any use of the information to criminally investigate or prosecute any alcohol or drug abuse patient.[facility] the event this information is protected by the Federal Confidentiality of Alcohol and Drug Abuse Patient Records regulations: The Federal rules restrict any use of the information to criminally investigate or prosecute any alcohol or drug abuse patient.[facility] the event this information is protected by the Federal Confidentiality of Alcohol and Drug Abuse Patient Records regulations: The Federal rules restrict any use of the information to criminally investigate or prosecute any alcohol or drug abuse patient.[facility] the event this information is protected by the Federal Confidentiality of Alcohol and Drug Abuse Patient Records regulations: The Federal rules restrict any use of the information to criminally investigate or prosecute any alcohol or drug abuse patient.[facility] the event this information is protected by the Federal Confidentiality of Alcohol and Drug Abuse Patient Records regulations: The Federal rules restrict any use of the information to criminally investigate or prosecute any alcohol or drug abuse patient.[facility] the event this information is protected by the Federal Confidentiality of Alcohol and Drug Abuse Patient Records regulations: The Federal rules restrict any use of the information to criminally investigate or prosecute any alcohol or drug abuse patient.[facility] Reason for Visit (unrecogniz ed section and content) Reason Comments Boat Buffer Plastic Exam Reason Onset Date Comments Refill Request 01/31/2022 Reason Comments Breast Problem Reason Comments Mammogram Abnormality Reason Comments Mammogram Abnormality Specialty Diagnoses / Procedures Referred By Contleslie taylor Referred To Contact Radiology Diagnoses Dense breasts Family history of breast cancer Procedures BI MR fast breast bilateral w/wo contrast Reny Markham, FACTORY CLERK - HOD CARRIER [address] [place] [address] Referral ID Status Reason Start Date Expiration Date Visits Re quested Visits Authorized [id number] Closed 06/07/2022 12/04/2022 1 1 Reason Comments 6 Month Follow-up Left breast pain vandana t comes and goes, right breast pain that is less frequent Reason Onset Date Comments Refill Request Refill Request 01/15/2023 Reason Comments Yearly Exam Reason Comments Refill Request Reason Comments Consult colonoscopy Reason Comments 1 Year Follow-up Breast exam Reason Comments Well Woman Reason Comments New Patient Evaluation for abnani mal imaging-pt states that she has had left breast pain for the last 4 months Care Teams (unrecognized sec tion and content) Retail Pharmacy Manager Relationship Specialty Start Date End Date Héctor Yepez MD [address] [place] [id number] PCP - General 02/20/04 Retail Pharmacy Manager Relationship Specialty Start Date End Date Héctor Yepez MD [address] [place] [address] PCP - General 02/20/04 Retail Pharmacy Manager Relationship Specialty Start Date End Date Héctor Yepez MD [address] [place] [address] PCP - General 02/20/04 Retail Pharmacy Manager Relationship Specialty Start Date End Date Héctor Yepez MD [address] [place] [address] PCP - General 02/20/04 Retail Pharmacy Manager Relationship Specialty Start Date End Date Héctor Yepez MD [address] [place] [address] PCP - General 02/20/04 Retail Pharmacy Manager Relationship Specialty Start Date End Date Héctor Yepez MD [address] [place] [address] [place] [id number] PCP - General 02/20/04 Team Status: Active Member Role Status Dates Dr. Héctor Yepez MD Family Provider Active Carmen Snow DO Primary Care Provider Active Team Status: Active Member Role Status Dates Carmen Snow DO Primary Care Provider Active Dr. Andrei Lerma MD Attending Provider Active Jade Ferguson RECORDIST CHIEF, RECORDIST CHIEF-C Referring Provider Active Team Status: Inactive Member Role Status Dates Dr. Héctor Harp MD Primary Care Provider Active Carmen Snow DO Attending Provider Active Team Status: Inactive Member Role Status Dates Carmen Snow DO Primary Care Provider Active Jade Ferguson RECORDIST CHIEF, RECORDIST CHIEF-C Attending Provider Active Team Status: Active Member Role Status Dates Carmen Snow DO Primary Care Provider Active Self Referred Attending Provider, Referring Provider A ctive Team Status: Inactive Member Role Status Dates Carmen nSow DO Primary Care Provider Active Dr. Mary Ann Vazquez MD Attending Provider Active Team Status: Inactive Member Role Status Dates Carmen Snow DO Primary Care Provider Active Dr. Bebe William MD Attending Provider Active Team Status: Inactive Member Role Status Dates Carmen Snow DO Primary Care Provider Active Dr. Mary Ann Vazquez MD Attending Provider, Referring Provider Active Retail Pharmacy Manager Relationship Specialty Start Date End Date Shaunna Snow MD [address] [place] [phone] PCP - General Pediatrics 06/05/22 Retail Pharmacy Manager Relationship Specialty Start Date End Date Shaunna Snow MD [address] [place] [phone] PCP - General Pediatrics 06/05/22 Retail Pharmacy Manager Relationship Specialty Start Date End Date Shaunna Snow MD [address] [facility] [address] [place] [phone] PCP - General Pediatrics 06/05/22 Retail Pharmacy Manager Relationship Specialty Start Date End Date Héctor Yepez MD [address] [place] [address] PCP - General 02/20/04 Retail Pharmacy Manager Relationship Specialty Start Date End Date Héctor Yepez MD [address] [place] [address] PCP - General 02/20/04 Team Status: Inactive Member Role Status Dates Carmen Snow DO Primary Care Provider Active Dr. Bebe William MD Attending Provider, Sandra caraballo Active Retail Pharmacy Manager Relationship Specialty Start Date End Date Héctor Yepez MD [address] [place] [address] PCP - General 02/20/04 Retail Pharmacy Manager Relationship Specialty Start Date End Date Héctor Yepez MD [address] [place] [address] PCP - General 02/20/04 Retail Pharmacy Manager Relationship Specialty Start Date End Date Shaunna Snow MD [address] [place] [address] PCP - General Pediatrics 06/05/22 Retail Pharmacy Manager Relationship Specialty Start Date End Date Shaunna Snow MD [address] [place] [address] PCP - General Pediatrics 06/05/22 Retail Pharmacy Manager Relationship Specialty Start Date End Date Héctor Yepez MD [address] [place] [address] PCP - General 02/20/04 Retail Pharmacy Manager Relationship Specialty Start Date End Date Shaunna Snow MD [address] [place] [address] PCP - General Pediatrics 06/05/22 Team Status: Active Member Role Status Mulu Frazier MD Primary Care Provider Active Team Status: Active Member Role Status Mulu Frazier MD Primary Care Provider Active St art: July 20, 2024 Nathanael Frazier MD Attending Provider Active Start : July 20, 2024 Nathanael Frazier MD Referring Provider Active Start : July 20, 2024 Team Status: Active Member Role Status Mulu Frazier MD Primary Care Provider Active St art: July 20, 2024 Nathanael Frazier MD Referring Provider Active Start : July 20, 2024 Nathanael Frazier MD Other Provider Active Start: [facility] 2024 Dr. Arron Soto MD Attending Provider Active S tart: July 20, 2024 Team Status: Inactive Member Role Status Mulu Frazier MD Primary Care Provider Active St art: October 01, 2024 End: October 01, 2024 Dr. Mary Ann Vazquez MD Attending Provider Active Start: October 01, 2024 End: October 01, 2024 Team Status: Active Member Role/Relationship Status Mulu Frazier MD Primary Care Provider Active Team Status: Active Member Role/Relationship Status Mulu Frazier MD Primary Care Provider Active St art: July 20, 2024 Nathanael Frazier MD Attending Provider Active Start : July 20, 2024 Nathanael Frazier MD Referring Provider Active Start : July 20, 2024 Team Status: Active Member Role/Relationship Status Mulu Frazier MD Primary Care Provider Active St art: July 20, 2024 Nathanael Frazier MD Referring Provider Active Start : July 20, 2024 Nathanael Frazier MD Other Provider Active Start: [facility] [address]. Arron Soto MD Attending Provider Active S tart: July 20, 2024 Team Status: Inactive Member Role/Relationship Status Mulu Frazier MD Primary Care Provider Active St art: October 01, 2024 End: October 01, 2024 Dr. Mary Ann Vazquez MD Attending Provider Active Start: October 01, 2024 End: October 01, 2024 Team Status: Inactive Member Role/Relationship Status Dates Dr. Mary Ann Vazquez MD Referring Provider Active Start: November 04, 2024 End: November 04, 2024 Dr. Ranjith Lee MD Attending Provider Active Start: November 04, 2024 End: November 04, 2024 Nathanael Frazier MD Primary Care Provider Active St art: November 04, 2024 End: November 04, 2024 FOR RECORDS PERTAINING TO PATIENTS WHO ARE [...] BE BASED ON THE PRIMARY CLINICAL RECORDS. [facility]. provides no warranty or guarantee of the accuracy or completeness of information in this document.
[2024-11-06 07:57] LABS: Hematocrit 37.4 % (37-47); Hemoglobin 13.1 g/dL (12.0-15.0); Mean Corp Hgb Conc 35.0 g/dL (32-36); Mean Corpuscular Volume 92.6 fL (81-99); Mean Platelet Vol. 8.9 fl (6.2-12.0); Platelet Count 327 K/mm3 (150-450); RBC Distribution Width CV 12.0 % (11.6-14.6); RBC Distribution Width SD 41.1 fl (35.1-43.9); Red Blood Count 4.04 M/mm3 (4.2-5.4); White Blood Count 4.5 K/mm3 (4.4-11.0)
[2024-11-06 08:35] LABS: Carbamazepine (Tegretol) 7.8 ug/mL (4.0-12.0)
[2024-11-06 08:49] LABS: AST(SGOT) 26 U/L (<=31); Alanine Aminotransfer ALT/SGPT 23 U/L (<=34); Albumin, Serum 4.3 g/dL (3.4-4.8); Alkaline Phosphatase 94 U/L (35-104); Anion Gap 11 (5-15); BUN 7 mg/dL (4-19); BUN/Creat Ratio 12.7 RATIO (10-20); Calcium,Total 9.2 mg/dL (7.6-11.0); Carbon Dioxide 25.5 mmol/L (21.0-32.0); Chloride 99 mmol/L (98-108); Globulin 2.6 g/dL (2.2-4.2); Glucose 108 mg/dL (70-99); Potassium 4.6 mmol/L (3.3-5.1); Vitamin B12 477 pg/mL (180-914)
[2024-11-09 13:08] LABS: Folate, Hemolysate Test 364.0 ng/mL (Not Estab.); Folate, RBC (Hct) Test 40.1 % (34.0-46.6); Folates, RBC Test 908 ng/mL (>498); Vitamin B1, Thiamine 82.5 nmol/L (66.5-200.0); Vitamin D 1,25-Dihydroxy 45.8 pg/mL (24.8-81.5)
== END | disposition home or self-care (01) ==
LOC: LAB 07:03
PROVIDERS: PCP Family Medicine; Referring Provider Psychiatry & Neurology Neurology; Visit Provider Psychiatry & Neurology Neurology
DX: G40.909 Epilepsy, unspecified, not intractable, without status epilepticus (principal); R53.83 Other fatigue
CPT/HCPCS: 36415; 80053; 80156; 82607; 82652; 82747; 84425; 84443; 85014; 85027

== ENCOUNTER 2024-11-11 15:13 | Outpatient (CLI) | payer BC, SELFPAY ==
--- NOTE | 2024-11-11 15:30 | BD_ITS ---
PROCEDURE: DEXA BONE DENSITY STUDY 11/11/2024 REASON FOR EXAM: HISTORY OF MULIPLE FRACTURES F, age 59 y/o . TECHNIQUE: DEXA BONE DENSITY STUDY COMPARISON: None FINDINGS: BMD and T-SCORES Lumbar spine: 1.147 g/cm2, T-score 0.9 Levels: L1 through L4 Left femoral neck: 0.805 g/cm2, T-score -0.4 Femoral neck comparison data not recommended for monitoring change. Left total hip: 0.992 g/cm2, T-score 0.4 Right femoral neck: 0.836 g/cm2, T-score -0.1 Femoral neck comparison data not recommended for monitoring change. Right total hip: 0.991 g/cm2, T-score 0.4 The World Health Organization has defined the following categories based on bone density: Normal bone density: T-score equal to or greater than -1.0 Osteopenia: T-score between -1.0 and -2.5 Osteoporosis: T-score equal to or less than -2.5 BD/Dexa Bone Density Study IMPRESSION: Normal bone mineral density. Reading Location: [id number]
--- OUTSIDE RECORDS SUMMARY | 2024-11-11 20:32 | XMS RPT_ITS | CCD ---
Author Organization [facility] CliniSytn Care Team Providers Care Field Cane Scale Clerk Name Role Phone CIRO ROONEY DO Admitting [...] )[id number] Dr. Andrei Lerma Attending Provider Sourav ASIAN STUDIES PROFESSOR, ASIAN STUDIES PROFESSOR-C Jade Referring Provider Shaunna Snow MD Primary Care Provider Héctor Yepez MD Primary Care Provider Héctor Yepez MD Primary Care Provider RENY MARKHAM Attending Unavailable RENY MARKHAM Referring Unavailable EDY SHAUNNA Primary Care Unavailable ANIRUDH AVALOS Referring Unavailable RENY MARKHAM Attending Unavailable EDY SHAUNNA Primary Care Unavailable LAURA ALFONSO Referring Unavailable EDY, SHAUNNA Primary Care Unavailable HÉCTOR YEPEZ Primary Care Unavailable JADE FERGUSON Attending Unavailable HÉCTOR YEPEZ Primary Care Unavailable VERNELL VANEGAS Attending Unavailable Shaunna Snow MD Primary Care Provider Nathanael Frazier MD Primary Care Provider [phone] Nathanael Frazier MD Attending Provider [phone] Nathanael Frazier MD Referring Provider Karin STEPHENSON, Chalon Other Provider Brittany STEPHENSON, Dr. Heller Attending Provider [phone] Taylor STEPHENSON, Dr. Reese Attending Provider Taylor STEPHENSON, Dr. Reese Referring Provider Rosa STEPHENSON, Dr. Kasper Attending Provider Ranjith Lee Attending Unavailable Vellanki, Mary Ann Referring Unavailable Karin, Chalon Primary Care Unavailable EliazarHalle Attending Unavailable Vellanki, Mary Ann Primary Care Unavailable Baddour, Ranjith Attending Unavailable Baddour, Ranjith Referring Unavailable Karin, Chalon Primary Care Unavailable Baddour, Ranjith Attending Unavailable Baddour, Ranjith Referring Unavailable Karin, Chalon Primary Care Unavailable Karin, Chalon Attending Unavailable Karin, Chalon Referring Unavailable Karin, Chalon Primary Care Unavailable Baddour, Ranjith Attending Unavailable Baddour, Ranjith Referring Unavailable Karin, Chalon Primary Care Unavailable Vellanki, Mary Ann Attending Unavailable Karin, Chalon Primary Care Unavailable Vellanki, Mary Ann Attending Unavailable Vellanki, Mary Ann Referring Unavailable Karin, Chalon Primary Care Unavailable Friend, Chase Attending Unavailable Karin, Chalon Referring Unavailable Karin, Chalon Primary Care Unavailable Vellanki, Mary Ann Consulting Unavailable Friend, Chase Attending Unavailable Karin, Chalon Referring Unavailable Karin, Chalon Primary Care Unavailable Vellanki, Mary Ann Consulting Unavailable Friend, Chase Consulting Unavailable Arron Soto Attending Unavailable Karin, Chalon Referring Unavailable Karin, Chalon Primary Care Unavailable Karin, Chalon Consulting Unavailable Baddour , Dr. Kasper Referring Provider Allergies Allergy Classification Reported Allergen(s) Allergy Type Date of Onset Reaction(s) Facility Amoxicillin / Clavulanate (1 source) Amoxicillin / Clavulanate Drug Allergy 8 GI Upset [facility] Work Phone: (20 sources) Amoxicillin Drug Allergy 1 Nausea, Nausea/Vom/Diar [facility] (20 sources) Clavulanate Drug Allergy 1 Nausea, Nausea/Vom/Diar [facility] (20 sources) Amoxicillin / Clavulanate; Translations: [AMOXICILLIN-PO T CLAVULANATE] Drug Allergy 8 GI Upset [facility] Work Phone: (13 sources) Seasonal allergy; Translations: [SEASONAL ALLERGIES] Propensity to adverse reactions 2 Other: See Comments [facility] (10 sources) Other Propensity to adverse reactions 2 Other [facility] (1 source) Amoxicillin Drug Allergy 5 [facility] (1 source) Clavulanate Drug Allergy 5 [facility] Medications Current Medications Medication Drug [...] TWICE A DAY Take 1 tablet by [facility] twice daily. [id number] 200 actuat albuterol 0.09 mg/actuat metered dose [...] of Breath. ARIPiprazole 5 mg oral tablet (8 sources) Atypical Antipsychotic Start: 024 take 1 [...] tablet (20 sources) Mood Stabilizer Start: End: 025 take 1.5 tablets by mouth in the [...] prema y. gabapentin 100 mg oral capsule (10 sources) Anti-epileptic Agent Start: 2022 take 1 [...] afternoon. hydrOXYzine hydrochloride 25 mg oral tablet (17 sources) Antihistamine Start: 2019 take 1 tablet [...] For Anxiety LORazepam 0.5 mg oral tablet (5 sources) Benzodiazepine Start: 01-05-20 End: 11-05-19 Lorazepam (Ativan) 0.5 mg tablet Active 0.5 mg PO .PRN November 04, 2024 8:55am anxiety multivitamins(DAILY MULTIVITAMIN TAB) (12 sources) Start: 05-02-19 10 multivitamins(DAILY MULTIVITAMIN TAB) Take one tablet daily. 0 05/02/2009 Active Comment on above: Take one tablet prema y. propranolol hydrochloride 20 mg oral tablet (8 sources) beta-Adrenergic Tyler Start: 11-03-19 24 take 1 tablet by mouth twice daily Propranolol 20 mg tablet Active 20 mg PO TWICE A DAY January 05, 2024 12:00am simvastatin 20 mg oral tablet (1 source) HMG-CoA Reductase Inhibitor Start: 12-11-19 End: 11-16-19 simvastatin(ZOCOR 20 MG TAB) Take one(1) tablet daily at bedtime. 0 12/11/2007 11/15/2021 Discontinued Comment on above: Take one(1) tablet d aily at bedtime. sodium chloride 1000 mg oral tablet (1 source) Start: 11-09-19 take 1 tablet by mouth once daily Sodium Chloride 1,000 mg tablet,soluble Active 1000 mg PO daily 25 08November 08, 2024 12:00am electrolyte replenishment traZODone hydrochloride 50 mg oral tablet (20 [...] Problem Date Documented Date Episodic/Chronic Anxiety disorders (16 sources) Generalized anxiety disorder; Translations: [Generalized anxiety disorder] Onset: 02-20-2023 04-12-2020 Chronic Disorders of lipid metabolism (16 sources) Hyperlipidemia; Translations: [Hyperlipidemia, unspecified] Onset: 07-03-2021 04-11-2020 Chronic Epilepsy; convulsions (19 sources) Epilepsy; Translations: [Epilepsy, unspecified, not intractable, without status epilepticus] Onset: 11-24-2023 04-12-2020 Chronic Comment on above: LAST SEIZURE 10+ YRS AO Genitourinary symptoms and ill-defined conditions (12 sources) Mixed urinary incontinence; Translations: [Mixed incontinence] Onset: 09-13-2010 09-13-2010 Chronic Malaise and fatigue (2 sources) Other fatigue; Translations: [Fatigue] Onset: 11-06-2024 11-04-2024 Episodic Mood disorders (12 sources) Depressive disorder; Translations: [Depression] 04-12-2020 Chronic Nonmalignant breast conditions (5 sources) Mammary duct ectasia of left breast; 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] 12-06-2022 Chronic Nonmalignant breast conditions (3 sources) Pain of breast; Translations: [Mastodynia] Episodic Nonspecific chest pain (12 sources) Chest wall pain; Translations: [Other chest pain] 03-15-2020 Episodic Other and unspecified benign neoplasm (1 source) History of polyp of colon; Translations: [Personal history of colonic polyps] 11-24-2023 Episodic Other congenital anomalies (12 sources) Congenital anomaly of skin; Translations: [Other specified congenital malformations of skin] Onset: 09-17-2007 09-17-2007 Chronic Other screening for suspected conditions (not mental disorders or infectious disease) (12 sources) CT of chest abnormal; Translations: [Abnormal findings on diagnostic imaging of other specified body structures] 04-12-2020 Chronic Other screening for suspected conditions (not mental disorders or infectious disease) (20 sources) Patient encounter status; Translations: [Encounter for screening mammogram for malignant neoplasm of breast] Onset: 12-09-2023 Episodic Other upper respiratory disease (12 sources) Allergic rhinitis; Translations: [Allergic rhinitis, unspecified] 04-12-2020 Chronic Prolapse of female genital organs (20 sources) Midline cystocele; Translations: [Cystocele, midline] Onset: 09-13-2010 09-13-2010 Chronic Residual codes; unclassified (12 sources) Tobacco user; Translations: [Tobacco use] 08-15-2020 [...] Spondylosis; intervertebral disc disorders; other back problems (12 sources) Degeneration of cervical intervertebral disc; Translations: [Other cervical disc degeneration, unspecified cervical region] 04-12-2020 Chronic Spondylosis; intervertebral disc disorders; other back problems (12 sources) Cervical radiculopathy; Translations: [Radiculopathy, cervical region] 12-30-2017 Episodic Sprains and strains (12 sources) Strain of neck muscle; Translations: [Strain [...] Test Name Value Interpretation Reference Range Facility Anion gap in Serum or Plasma Ordered By: Ranjith Lee on 11-06-2024 Anion gap [Moles/Vol] 11 mmol/L 5-15 [facility] BUN/creatinine ratioOrdered By: Ranjith Lee on 11-06-2024 Urea nitrogen/Creatinine [Mass ratio] 12.7 mg/mg 10-20 [facility] Bilirubin, totalOrdered By: Ranjith Lee on 11-06-2024 Bilirubin [Mass/Vol] 0.20 mg/dL 0.00-1.30 [facility] CBC-Complete Blood Cnt No Di ffon 11-06-2024 Erythrocyte distribution width (RBC) [Ratio] 12.0 % Normal 11.6-14.6 [facility] Comment on above: Performed By: #### L 501.7900, L500.4050, L501.9520, L100.0500, L503.0106 #### [facility] [address] [place], [address] Hematocrit (Bld) [Volume fraction] 37.4 % Normal 37-47 [facility] Comment on above: Performed By: #### L 501.7900, L500.4050, L501.9520, L100.0500, L503.0106 #### [facility] [address] [place], [address] Hemoglobin (Bld) [Mass/Vol] 13.1 g/dL Normal 12.0-15.0 [facility] Comment on above: Performed By: #### L 501.7900, L500.4050, L501.9520, L100.0500, L503.0106 #### [facility] [address] [place], [address] MCH (RBC) [Entitic mass] 32.4 pg High 27.0-32.0 [facility] Comment on above: Performed By: #### L 501.7900, L500.4050, L501.9520, L100.0500, L503.0106 #### [facility] [address] [place], [address] MCHC (RBC) [Mass/Vol] 35.0 g/dL Normal 32-36 [facility] Comment on above: Performed By: #### L 501.7900, L500.4050, L501.9520, L100.0500, L503.0106 #### [facility] [address] [place], [address] MCV (RBC) [Entitic vol] 92.6 fL Normal 81-99 [facility] Comment on above: Performed By: #### L 501.7900, L500.4050, L501.9520, L100.0500, L503.0106 #### [facility] [address] [place], [address] Platelet mean volume (Bld) [Entitic vol] 8.9 fL Normal 6.2-12.0 [facility] Comment on above: Performed By: #### L 501.7900, L500.4050, L501.9520, L100.0500, L503.0106 #### [facility] [address] [place], [address] Platelets (Bld) [#/Vol] 327 10*3/uL Normal 150-450 [facility] Comment on above: Performed By: #### L 501.7900, L500.4050, L501.9520, L100.0500, L503.0106 #### [facility] [address] [place], [address] RBC (Bld) [#/Vol] 4.04 10*6/uL Low 4.2-5.4 [facility] Comment on above: Performed By: #### L 501.7900, L500.4050, L501.9520, L100.0500, L503.0106 #### [facility] [address] [place], [address] RDW SD 41.1 fl Normal 35.1-43.9 [facility] Comment on above: Performed By: #### L 501.7900, L500.4050, L501.9520, L100.0500, L503.0106 #### [facility] [address] [place], [address] WBC (Bld) [#/Vol] 4.5 10*3/uL Normal 4.4-11.0 [facility] Comment on above: Performed By: #### L 501.7900, L500.4050, L501.9520, L100.0500, L503.0106 #### [facility] [address] [place], [address] Carbamazepine (Tegretol)on 0 11-06-2024 CARBAMAZEPINE 7.8 ug/mL Normal 4.0-12.0 [facility] Comment on above: Performed By: #### L 501.7900, L500.4050, L501.9520, L100.0500, L503.0106 ####[facility] [address] [place], [address] Carbon dioxide, total [Moles /volume] in Central venous bloodOrdered By: Ranjith Lee on 11-06-2024 CO2 [Moles/Vol] 25.5 mmol/L 21.0-32.0 [facility] Chloride assayOrdered By: Ra javier Lee on 11-06-2024 Chloride [Moles/Vol] 99 mmol/L 98-108 [facility] Comprehensive Metabolic Prof ilon 11-06-2024 Albumin [Mass/Vol] 4.3 g/dL Normal 3.4-4.8 [facility] Comment on above: Performed By: #### L 501.7900, L500.4050, L501.9520, L100.0500, L503.0106 ####[facility] [address] [place], [address] Albumin/Globulin [Mass ratio] 1.7 {ratio} Normal 0.9-2.4 [facility] Comment on above: Performed By: #### L 501.7900, L500.4050, L501.9520, L100.0500, L503.0106 ####[facility] [address] [place], [address] ALK PHOS 94 U/L Normal 35-104 [facility] Comment on above: Performed By: #### L 501.7900, L500.4050, L501.9520, L100.0500, L503.0106 ####[facility] [address] [place], [address] ALT [Catalytic activity/Vol] 23 U/L Normal <=34 [facility] Comment on above: Performed By: #### L 501.7900, L500.4050, L501.9520, L100.0500, L503.0106 ####[facility] [address] [place], [address] AST [Catalytic activity/Vol] 26 U/L Normal <=31 [facility] Comment on above: Performed By: #### L 501.7900, L500.4050, L501.9520, L100.0500, L503.0106 ####[facility] [address] [place], [address] Bilirubin [Mass/Vol] 0.20 mg/dL Normal 0.00-1.30 [facility] Comment on above: Performed By: #### L 501.7900, L500.4050, L501.9520, L100.0500, L503.0106 ####[facility] [address] [place], [address] BUN/CRE 12.7 RATIO Normal 10-20 [facility] Comment on above: Performed By: #### L 501.7900, L500.4050, L501.9520, L100.0500, L503.0106 ####[facility] [address] [place], [address] Calcium [Mass/Vol] 9.2 mg/dL Normal 7.6-11.0 [facility] Comment on above: Performed By: #### L 501.7900, L500.4050, L501.9520, L100.0500, L503.0106 ####[facility] [address] [place], [address] Chloride [Moles/Vol] 99 mmol/L Normal 98-108 [facility] Comment on above: Performed By: #### L 501.7900, L500.4050, L501.9520, L100.0500, L503.0106 ####[facility] [address] [place], [address] CO2 [Moles/Vol] 25.5 mmol/L Normal 21.0-32.0 [facility] Comment on above: Performed By: #### L 501.7900, L500.4050, L501.9520, L100.0500, L503.0106 ####[facility] [address] [place], [address] Creatinine [Mass/Vol] 0.56 mg/dL Low 0.70-1.20 [facility] Comment on above: Performed By: #### L 501.7900, L500.4050, L501.9520, L100.0500, L503.0106 ####[facility] [address] [place], [address] GAP 11 Normal 5-15 [facility] Comment on above: Performed By: #### L 501.7900, L500.4050, L501.9520, L100.0500, L503.0106 ####[facility] [address] [place], [address] GFR/1.73 sq M.predicted among non-blacks MDRD (S/P/Bld) [Vol rate/Area] 104 mL/min/{1.73_m2} Normal >60 [facility] Comment on above: Result Comment: mL/m in/1.73m2 CKD-EPI Creatinine Equation (2020) Performed By: #### L 501.7900, L500.4050, L501.9520, L100.0500, L503.0106 ####[facility] [address] [place], [address] Globulin (S) [Mass/Vol] 2.6 g/dL Normal 2.2-4.2 [facility] Comment on above: Performed By: #### L 501.7900, L500.4050, L501.9520, L100.0500, L503.0106 ####[facility] [address] [place], [address] Glucose [Mass/Vol] 108 mg/dL High 70-99 [facility] Comment on above: Performed By: #### L 501.7900, L500.4050, L501.9520, L100.0500, L503.0106 ####[facility] [address] [place], [address] Potassium [Moles/Vol] 4.6 mmol/L Normal 3.3-5.1 [facility] Comment on above: Performed By: #### L 501.7900, L500.4050, L501.9520, L100.0500, L503.0106 ####[facility] [address] [place], [address] Sodium [Moles/Vol] 136 mmol/L Normal 133-145 [facility] Comment on above: Performed By: #### L 501.7900, L500.4050, L501.9520, L100.0500, L503.0106 ####[facility] [address] [place], [address] T PROT 6.9 g/dL Normal 5.9-8.4 [facility] Comment on above: Performed By: #### L 501.7900, L500.4050, L501.9520, L100.0500, L503.0106 ####[facility] [address], [address] Urea nitrogen [Mass/Vol] 7 mg/dL Normal 4-19 [facility] Comment on above: Performed By: #### L 501.7900, L500.4050, L501.9520, L100.0500, L503.0106 ####[facility] [address] [place], [address] Erythrocyte distribution wid th ratioOrdered By: Ranjith Lee on 11-06-2024 Erythrocyte distribution width (RBC) [Ratio] 12.0 % 11.6-14.6 [facility] Erythrocyte distribution wid th standard deviationOrdered By: Ranjitheileen Lee on 11-06-2024 Erythrocyte distribution width (RBC) [Ratio] 41.1 fl 35.1-43.9 [facility] Erythrocyte folate measureme nt with hematocritOrdered By: Ranjith Lee on 11-06-2024 Hematocrit (Bld) [Volume fraction] 40.1 % 34.0-46.6 [facility] Glomerular filtration rate ( GFR) estimation/1.73 sq m using serum, plasma, or whole bOrdered By: Ranjith Lee on 11-06-2024 GFR/1.73 sq M.predicted among non-blacks MDRD (S/P/Bld) [Vol rate/Area] 104 mL/min/{1.73_m2} >60 [facility] Comment on above: mL/min/1.73m2 CKD-EP I Creatinine Equation (2020) Hematocrit Auto (Bld) [Volum e fraction]Ordered By: Ranjith Lee on 11-06-2024 Hematocrit (Bld) [Volume fraction] 37.4 % 37-47 [facility] Hemoglobin measurementOrdere d By: Ranjith Lee on 11-06-2024 Hemoglobin (Bld) [Mass/Vol] 13.1 g/dL 12.0-15.0 [facility] - Chemistry and C hemistry - challengeOrdered By: Ranjith Lee on 11-06-2024 AST [Catalytic activity/Vol] 26 U/L <32 [facility] MCV (mean corpuscular volume ) determinationOrdered By: Ranjith Lee on 11-06-2024 MCV (RBC) [Entitic vol] 92.6 fL 81-99 [facility] Mean corpuscular hemoglobin (MCH) determinationOrdered By: Ranjith Lee on 11-06-2024 MCH (RBC) [Entitic mass] 32.4 pg High 27.0-32.0 [facility] Mean corpuscular hemoglobin concentration (MCHC) determinationOrdered By: Ranjith Lee on 11-06-2024 MCHC (RBC) [Mass/Vol] 35.0 g/dL 32-36 [facility] Mean platelet volume determi nationOrdered By: Ranjith Lee on 11-06-2024 Platelet mean volume (Bld) [Entitic vol] 8.9 fL 6.2-12.0 [facility] Platelet countOrdered By: Ra javier Lee on 11-06-2024 Platelets (Bld) [#/Vol] 327 10*3/uL 150-450 [facility] Potassium measurement (mass/ volume)Ordered By: Ranjith Lee on 11-06-2024 Potassium (Unsp spec) [Mass/Vol] 4.6 mmol/L 3.3-5.1 [facility] RBC Auto (Bld) [#/Vol]Ordere d By: Ranjith Lee on 11-06-2024 RBC (Bld) [#/Vol] 4.04 10*6/uL Low 4.2-5.4 [facility] Serum creatinine measurement (mass/volume)Ordered By: Ranjith Lee on 11-06-2024 Creatinine [Mass/Vol] 0.56 mg/dL Low 0.70-1.20 [facility] Serum globulin measurementOr dered By: Ranjith Lee on 11-06-2024 Globulin (S) [Mass/Vol] 2.6 g/dL 2.2-4.2 [facility] Serum glucose measurement (m ass/volume)Ordered By: Ranjith Lee on 11-06-2024 Glucose [Mass/Vol] 108 mg/dL High 70-99 [facility] Serum or plasma alanine ndiaye otransferase (ALT) measurementOrdered By: Ranjith Lee on 11-06-2024 ALT [Catalytic activity/Vol] 23 U/L <35 [facility] Serum or plasma albumin marco urement (mass/volume)Ordered By: Ranjith Lee on 11-06-2024 Albumin [Mass/Vol] 4.3 g/dL 3.4-4.8 [facility] Serum or plasma albumin/glob ulin mass ratioOrdered By: Ranjith Lee on 11-06-2024 Albumin/Globulin [Mass ratio] 1.7 {ratio} 0.9-2.4 [facility] Serum or plasma alkaline farida sphatase measurementOrdered By: Ranjith Lee on 11-06-2024 ALP [Catalytic activity/Vol] 94 U/L 35-104 [facility] Serum or plasma calcitriol m easurement (mass/volume)Ordered By: Ranjith Lee on 11-06-2024 1,25-dihydroxyvitamin D3 [Mass/Vol] 45.8 pg/mL 24.8-81.5 [facility] Comment on above: Performed at: [facility] [address] [id number] Director: Uyen Lomax MD, Phone: [phone] Serum or plasma calcium marco urement (mass/volume)Ordered By: Ranjith Lee on 11-06-2024 Calcium [Mass/Vol] 9.2 mg/dL 7.6-11.0 [facility] Serum or plasma carbamazepin e level (mass/volume)Ordered By: Ranjith Lee on 11-06-2024 carBAMazepine [Mass/Vol] 7.8 ug/mL 4.0-12.0 [facility] Serum or plasma thiamine mark surement (mass/volume)Ordered By: Ranjith Lee on 11-06-2024 Thiamine [Mass/Vol] 82.5 nmol/L 66.5-200.0 [facility] Comment on above: Performed at: [facility] [address] [id number] Director: Patrick Auguste PhD, Phone: [phone] at: [facility] [id number] [place], [place] [id number] Director: Uyen Lomax MD, Phone: [phone] Serum or plasma urea nitroge n measurement (mass/volume)Ordered By: Ranjith Lee on 11-06-2024 Urea nitrogen [Mass/Vol] 7 mg/dL 4-19 [facility] Sodium levelOrdered By: Anthony Lee on 11-06-2024 Sodium [Moles/Vol] 136 mmol/L 133-145 [facility] TSH DL <= 0.005 mIU/L QnOrde red By: Ranjith Lee on 11-06-2024 TSH Qn 1.710 uIU/mL 0.300-4.200 [facility] Thyroid Stim Hormone (TSH)on 11-06-2024 TSH 1.710 uIU/mL Normal 0.300-4.200 [facility] Comment on above: Performed By: #### L 501.7900, L500.4050, L501.9520, L100.0500, L503.0106 ####[facility] [address] [place], [address] Total proteinOrdered By: Corky Lee on 11-06-2024 Protein [Mass/Vol] 6.9 g/dL 5.9-8.4 [facility] Vitamin B12on 11-06-2024 Cobalamin (Vitamin B12) [Mass/Vol] 477 pg/mL Normal 180-914 [facility] Comment on above: Performed By: #### L 501.7900, L500.4050, L501.9520, L100.0500, L503.0106 ####[facility] [address] [place], [place], [id number] Vitamin B12 ser/plasOrdered By: Ranjith Lee on 11-06-2024 Cobalamin (Vitamin B12) [Mass/Vol] 477 pg/mL 180-914 [facility] White blood cell (WBC) count Ordered By: Ranjith Lee on 11-06-2024 WBC (Bld) [#/Vol] 4.5 10*3/uL 4.4-11.0 [facility] Neurology Visit Reporton Neurology Visit Report [facility] [address] [place], [place] [id number] OFFICE VISIT Date of Service: 11/04/24 MR#: [id number] Acct: [id number] Name: REYMUNDO ALANIS Rep #: [id number] : 1965 Provider: Dr. Ranjith abad MD Age/Sex: 59/F Location: [facility] Status: Signed HPI HPI Chief Complaint: Establish Care Details: History: The patient is a 59-year-old right-handed woman with a past medical history of hypertension, hyperlipidemia, depression, anxiety, and epilepsy who presents for evaluation of her epilepsy. She began to have seizures during childhood. Her seizures began with a aura of a difficult to describe unusual feeling. She then loses consciousness and has atonia and falls if she is standing when the seizure occurs. She remains unconscious for about 1 minute. She does not have associated tonic or clonic movements. She does not have associated tongue biting. She occasionally has had associated urinary incontinence. She has postictal confusion and lethargy. She could not quantitate the frequency of her seizures during childhood and her teenage years however she states that her seizures occurred frequently. She then had a seizure at the age of 14 with which she struck her head and had an associated concussion (she states that with that seizure she was unconscious for several hours). It was then that she was evaluated by a neurologist and was diagnosed with epilepsy and carbamazepine was initiated. She has remained on carbamazepine since that time. She does not recall her seizure frequency for the remainder of her teenage years however she states that since the age of 19 she has had about 3 seizures, the last of which occurred around 2019. She has had hyponatremia as a side effect of carbamazepine otherwise she is tolerating the medication well. She consumes 3 to 4 cups of coffee daily and drinks about 6 bottles of water daily. She consumes 1 Powerade daily. She denies having numbness, weakness, vision change, dizziness. She occasionally experiences lightheadedness if she misses a meal. She has sinus congestion once or twice every 6 months and with the sinus congestion experiences associated headaches otherwise she does not have any history of headaches. She uses Mucinex and acetaminophen for her sinus symptoms and this is of benefit. She does not have any history of concussion, INSULATION BLOWER infection or significant history. She has depression and anxiety. Her in 2022. She takes Celexa, propranolol, buspirone and infrequently uses lorazepam. She takes trazodone for insomnia and this is of benefit. The etiology of her seizures is unknown. She states that she had brain imaging and an EEG when she was a teenager however she does not know the results of these studies. Past Medical History: As above. There is no history of diabetes mellitus, heart disease, lung disease, stroke, thyroid disease, cancer, renal disease, or sleep apnea. Social History: She smokes tobacco. There is no history of alcohol abuse or illicit drug use. Family History: The patient's nephew has seizures. There is no family history of stroke or cerebral aneurysm. Review of Systems: As above. The patient has not had any recent fever, rash, weight change, shortness of breath, or gastrointestinal problems. She has depression and anxiety. She had had insomnia; this has subsided with use of trazodone. She experiences occasional chest pain associated with periods of anxiety. Physical Exam: General: Well-developed, well-nourished female in no acute distress. Neuro: The patient is awake and alert and responds appropriately; speech is fluent; language function is within normal limits Cranial nerves: PERRL, 3mm bilaterally; EOMI; visual melendez are full; visual acuity is 20/25 on the right and 20/30 on the left; face is symmetrical; tongue is midline; there are no deficits to pinprick Cerebellar system: No nystagmus or dysmetria Deep tendon reflexes: +2 at the knees, ankles, biceps bilaterally, and brachioradialis bilaterally and absent at the triceps bilaterally; plantar responses are downward bilaterally Motor: Strength 5/5 in the biceps bilaterally, abductor pollicis brevis muscles bilaterally, first dorsal interosseous muscles bilaterally, quadriceps bilaterally and foot dorsiflexors bilaterally; no drift Sensory: There are no deficits to soft touch, vibration or pinprick Gait: Unremarkable HEENT: Normocephalic; atraumatic; tympanic membranes are clear Neck: No bruits Heart: Regular rhythm and rate Extremities: No cyanosis or edema; right dorsalis pedis pulse is +2; left posterior tibial pulse is +2 Supplemental Info Hemoglobin A1c (09/09/2022): 5.8 (high) Lipid profile (11/02/2022): HDL 77 (normal), LDL 93 (normal), cholesterol 182 (normal), triglycerides 62 (normal) CMP (06/17/2023): Sodium 129 (low) CBC, CMP (10/01/2024): Hematoc (more content not included)... Normal [facility] Absolute lymphocyte countOrd ered By: [facility] on 10-01-2024 Lymphocytes Auto (Unsp spec) [#/Vol] 2.72 10*3/uL 0.83-4.51 [facility] Absolute neutrophil countOrd ered By: [facility] on 10-01-2024 Neutrophils (Bld) [#/Vol] 5.0 10*3/uL 2.0-7.7 [facility] Anion gap in Serum or Plasma Ordered By: Mary Annjun Vazquez on 10-01-2024 Anion gap [Moles/Vol] 12 mmol/L 5- [facility] Automated lymphocyte count a s percentage of total leukocytesOrdered By: [facility] on 10-01-2024 Lymphocytes/100 WBC Auto (Unsp spec) 32.2 % 19-41 [facility] BUN/creatinine ratioOrdered By: [facility] on 10-01-2024 Urea nitrogen/Creatinine [Mass ratio] 16.6 mg/mg 10-20 [facility] Basophil percentageOrdered B y: Mary Ann Vazquez on 10-01-2024 Basophils/100 WBC (Bld) 0.7 % 0-1 [facility] Bilirubin, totalOrdered By: [facility] on 10-01-2024 Bilirubin [Mass/Vol] mg/dL 0.00-1.30 [facility] CBC W/Diff, Automatedon Absolute Lymph 2.72 X10 3/uL Normal 0.83-4.51 [facility] Comment on above: Performed By: #### L 500.4050, L100.0100 #### [facility] [address], [address] Absolute Neut 5.0 X10 3/uL Normal 2.0-7.7 [facility] Comment on above: Performed By: #### L 500.4050, L100.0100 #### [facility] [address] [place], [address] Basophils/100 WBC (Bld) 0.7 % Normal 0-1 [facility] Comment on above: Performed By: #### L 500.4050, L100.0100 #### [facility] [address] [place], [address] Eosinophils/100 WBC (Bld) 0.9 % Normal 0-5 [facility] Comment on above: Performed By: #### L 500.4050, L100.0100 #### [facility] [address] [place], [address] Erythrocyte distribution width (RBC) [Ratio] 12.3 % Normal 11.6-14.6 [facility] Comment on above: Performed By: #### L 500.4050, L100.0100 #### [facility] [address] [place], [address] Hematocrit (Bld) [Volume fraction] 36.4 % Low 37-47 [facility] Comment on above: Performed By: #### L 500.4050, L100.0100 #### [facility] [address] [place], [address] Hemoglobin (Bld) [Mass/Vol] 12.7 g/dL Normal 12.0-15.0 [facility] Comment on above: Performed By: #### L 500.4050, L100.0100 #### [facility] [address] [place], [address] IG% 0.400 Normal 0.0-0.9 [facility] Comment on above: Result Comment: IG% - Immature Granulocytes (promyelocytes, myelocytes and metamyelocytes) > 1% indicates that a LEFT SHIFT is Present. Performed By: #### L 500.4050, L100.0100 #### [facility] [address] [place], [address] Lymphocytes/100 WBC (Bld) 32.2 % Normal 19-41 [facility] Comment on above: Performed By: #### L 500.4050, L100.0100 #### [facility] [address] [place], [address] MCH (RBC) [Entitic mass] 32.9 pg High 27.0-32.0 [facility] Comment on above: Performed By: #### L 500.4050, L100.0100 #### [facility] [address] [place], [address] MCHC (RBC) [Mass/Vol] 34.9 g/dL Normal 32-36 [facility] Comment on above: Performed By: #### L 500.4050, L100.0100 #### [facility] [address] [place], [address] MCV (RBC) [Entitic vol] 94.3 fL Normal 81-99 [facility] Comment on above: Performed By: #### L 500.4050, L100.0100 #### [facility] [address] [place], [address] Monocytes/100 WBC (Bld) 6.4 % Normal 0-10 [facility] Comment on above: Performed By: #### L 500.4050, L100.0100 #### [facility] [address] [place], [address] Neutrophils/100 WBC (Bld) 59.4 % Normal 47-70 [facility] Comment on above: Performed By: #### L 500.4050, L100.0100 #### [facility] [address] [place], [address] Nucleated RBC (Bld) [#/Vol] 0 10*3/uL Normal 0-5 [facility] Comment on above: Performed By: #### L 500.4050, L100.0100 #### [facility] [address] [place], [address] Platelet mean volume (Bld) [Entitic vol] 9.8 fL Normal 6.2-12.0 [facility] Comment on above: Performed By: #### L 500.4050, L100.0100 #### [facility] [address] [place], [address] Platelets (Bld) [#/Vol] 296 10*3/uL Normal 150-450 [facility] Comment on above: Performed By: #### L 500.4050, L100.0100 #### [facility] [address] [place], [address] RBC (Bld) [#/Vol] 3.86 10*6/uL Low 4.2-5.4 [facility] Comment on above: Performed By: #### L 500.4050, L100.0100 #### [facility] [address] [place], [address] RDW SD 42.7 fl Normal 35.1-43.9 [facility] Comment on above: Performed By: #### L 500.4050, L100.0100 #### [facility] [address] [place], [address] WBC (Bld) [#/Vol] 8.4 10*3/uL Normal 4.4-11.0 [facility] Comment on above: Performed By: #### L 500.4050, L100.0100 #### [facility] [address] [place], [address] Carbon dioxide, total [Moles /volume] in Central venous bloodOrdered By: Mary Ann Vazquez on 10-01-2024 CO2 [Moles/Vol] 22.6 mmol/L 21.0-32.0 [facility] Chloride assayOrdered By: Gonsalo Vazquez on 10-01-2024 Chloride [Moles/Vol] 97 mmol/L Low 98-108 [facility] Comprehensive Metabolic Prof ilon 10-01-2024 Albumin [Mass/Vol] 4.2 g/dL Normal 3.4-4.8 [facility] Comment on above: Performed By: #### L 500.4050, L100.0100 #### [facility] [address] [place], [address] Albumin/Globulin [Mass ratio] 1.6 {ratio} Normal 0.9-2.4 [facility] Comment on above: Performed By: #### L 500.4050, L100.0100 #### [facility] [address] [place], [address] ALK PHOS 86 U/L Normal 35-104 [facility] Comment on above: Performed By: #### L 500.4050, L100.0100 #### [facility] [address] [place], [address] ALT [Catalytic activity/Vol] 24 U/L Normal <=34 [facility] Comment on above: Performed By: #### L 500.4050, L100.0100 #### [facility] [address] [place], [address] AST [Catalytic activity/Vol] 27 U/L Normal <=31 [facility] Comment on above: Performed By: #### L 500.4050, L100.0100 #### [facility] [address] [place], [address] BUN/CRE 16.6 RATIO Normal 10-20 [facility] Comment on above: Performed By: #### L 500.4050, L100.0100 #### [facility] [address] [place], [address] Calcium [Mass/Vol] 9.0 mg/dL Normal 7.6-11.0 [facility] Comment on above: Performed By: #### L 500.4050, L100.0100 #### [facility] [address] [place], [address] Chloride [Moles/Vol] 97 mmol/L Low 98-108 [facility] Comment on above: Performed By: #### L 500.4050, L100.0100 #### [facility] [address] [place], [address] CO2 [Moles/Vol] 22.6 mmol/L Normal 21.0-32.0 [facility] Comment on above: Performed By: #### L 500.4050, L100.0100 #### [facility] [address] [place], [address] Creatinine [Mass/Vol] 0.52 mg/dL Low 0.70-1.20 [facility] Comment on above: Performed By: #### L 500.4050, L100.0100 #### [facility] [address] [place], [address] GAP 12 Normal 5-15 [facility] Comment on above: Performed By: #### L 500.4050, L100.0100 #### [facility] [address] [place], [address] GFR/1.73 sq M.predicted among non-blacks MDRD (S/P/Bld) [Vol rate/Area] 106 mL/min/{1.73_m2} Normal >60 [facility] Comment on above: Result Comment: mL/m in/1.73m2 CKD-EPI Creatinine Equation (2020) Performed By: #### L 500.4050, L100.0100 #### [facility] [address] [place], [address] Globulin (S) [Mass/Vol] 2.6 g/dL Normal 2.2-4.2 [facility] Comment on above: Performed By: #### L 500.4050, L100.0100 #### [facility] [address] [place], [address] Glucose [Mass/Vol] 94 mg/dL Normal 70-99 [facility] Comment on above: Performed By: #### L 500.4050, L100.0100 #### [facility] [address] [place], [address] Potassium [Moles/Vol] 4.0 mmol/L Normal 3.3-5.1 [facility] Comment on above: Performed By: #### L 500.4050, L100.0100 #### [facility] [address] [place], [address] Sodium [Moles/Vol] 132 mmol/L Low 133-145 [facility] Comment on above: Performed By: #### L 500.4050, L100.0100 #### [facility] [address] [place], [address] T BILI < 0.15 Normal 0.00-1.30 [facility] Comment on above: Performed By: #### L 500.4050, L100.0100 #### [facility] [address] [place], [address] T PROT 6.8 g/dL Normal 5.9-8.4 [facility] Comment on above: Performed By: #### L 500.4050, L100.0100 #### [facility] [address] [place], [address] Urea nitrogen [Mass/Vol] 9 mg/dL Normal 4-19 [facility] Comment on above: Performed By: #### L 500.4050, L100.0100 #### [facility] [address] [place], [address] Eosinophil percentageOrdered By: Mary Ann Vazquez on 10-01-2024 Eosinophils/100 WBC (Bld) 0.9 % 0-5 [facility] Erythrocyte distribution wid th ratioOrdered By: [facility] on 10-01-2024 Erythrocyte distribution width (RBC) [Ratio] 12.3 % 11.6-14.6 [facility] Erythrocyte distribution wid th standard deviationOrdered By: [facility] on 10-01-2024 Erythrocyte distribution width (RBC) [Ratio] 42.7 fl 35.1-43.9 [facility] Glomerular filtration rate ( GFR) estimation/1.73 sq m using serum, plasma, or whole bOrdered By: Mary Annjun Vazquez on 10-01-2024 GFR/1.73 sq M.predicted among non-blacks MDRD (S/P/Bld) [Vol rate/Area] 106 mL/min/{1.73_m2} >60 [facility] Comment on above: mL/min/1.73m2 CKD-EP I Creatinine Equation (2020) Hematocrit Auto (Bld) [Volum e fraction]Ordered By: Mary Ann Vazquez on 10-01-2024 Hematocrit (Bld) [Volume fraction] 36.4 % Low 37-47 [facility] Hemoglobin measurementOrdere d By: Mary Ann Vazquez on 10-01-2024 Hemoglobin (Bld) [Mass/Vol] 12.7 g/dL 12.0-15.0 [facility] Immature granulocytes/100 WB C Auto (Bld)Ordered By: Mary Ann Vazquez on 10-01-2024 Immature granulocytes/100 WBC (Bld) 0.400 % 0.0-0.9 [facility] Comment on above: IG% - Immature Granu locytes (promyelocytes, myelocytes and metamyelocytes) > 1% indicates that a LEFT SHIFT is Present. Laboratory - Chemistry and C hemistry - challengeOrdered By: Mary Ann Vazquez on 10-01-2024 AST [Catalytic activity/Vol] 27 U/L <32 [facility] MCV (mean corpuscular volume ) determinationOrdered By: Mary Ann Vazquez on 10-01-2024 MCV (RBC) [Entitic vol] 94.3 fL 81-99 [facility] Mean corpuscular hemoglobin (MCH) determinationOrdered By: Mary Ann Vazquez on 10-01-2024 MCH (RBC) [Entitic mass] 32.9 pg High 27.0-32.0 [facility] Mean corpuscular hemoglobin concentration (MCHC) determinationOrdered By: Mary Ann Vazquez on 10-01-2024 MCHC (RBC) [Mass/Vol] 34.9 g/dL 32-36 [facility] Mean platelet volume determi nationOrdered By: Mary Ann Vazquez on 10-01-2024 Platelet mean volume (Bld) [Entitic vol] 9.8 fL 6.2-12.0 [facility] Monocyte percentageOrdered B y: Mary Ann Vazquez on 10-01-2024 Monocytes/100 WBC (Bld) 6.4 % 0-10 [facility] Neutrophil percentageOrdered By: Mary Ann Vazquez on 10-01-2024 Neutrophils/100 WBC (Bld) 59.4 % 47-70 [facility] Nucleated red blood cell per centageOrdered By: Mary Ann Vazquez on 10-01-2024 Nucleated RBC/100 WBC (Bld) [Ratio] 0 % 0-5 [facility] Platelet countOrdered By: Gonsalo Vazquez on 10-01-2024 Platelets (Bld) [#/Vol] 296 10*3/uL 150-450 [facility] Potassium measurement (mass/ volume)Ordered By: Mary Ann Vazquez on 10-01-2024 Potassium (Unsp spec) [Mass/Vol] 4.0 mmol/L 3.3-5.1 [facility] RBC Auto (Bld) [#/Vol]Ordere d By: Mary Ann Vazquez on 10-01-2024 RBC (Bld) [#/Vol] 3.86 10*6/uL Low 4.2-5.4 [facility] Serum creatinine measurement (mass/volume)Ordered By: Mary Ann Vazquez on 10-01-2024 Creatinine [Mass/Vol] 0.52 mg/dL Low 0.70-1.20 [facility] Serum globulin measurementOr dered By: Mary Ann Vazquez on 10-01-2024 Globulin (S) [Mass/Vol] 2.6 g/dL 2.2-4.2 [facility] Serum glucose measurement (m ass/volume)Ordered By: Mary Ann Vazquez on 10-01-2024 Glucose [Mass/Vol] 94 mg/dL 70-99 [facility] Serum or plasma alanine ndiaye otransferase (ALT) measurementOrdered By: Mary Ann Vazquez on 10-01-2024 ALT [Catalytic activity/Vol] 24 U/L <35 [facility] Serum or plasma albumin marco urement (mass/volume)Ordered By: Mary Ann Vazquez on 10-01-2024 Albumin [Mass/Vol] 4.2 g/dL 3.4-4.8 [facility] Serum or plasma albumin/glob ulin mass ratioOrdered By: Mary Ann Vazquez on 10-01-2024 Albumin/Globulin [Mass ratio] 1.6 {ratio} 0.9-2.4 [facility] Serum or plasma alkaline farida sphatase measurementOrdered By: Mary Ann Vazquez on 10-01-2024 ALP [Catalytic activity/Vol] 86 U/L 35-104 [facility] Serum or plasma calcium marco urement (mass/volume)Ordered By: Mary Ann Vazquez on 10-01-2024 Calcium [Mass/Vol] 9.0 mg/dL 7.6-11.0 [facility] Serum or plasma urea nitroge n measurement (mass/volume)Ordered By: Mary Ann Vazquez on 10-01-2024 Urea nitrogen [Mass/Vol] 9 mg/dL 4-19 [facility] Sodium levelOrdered By: Sydni Vazquez on 10-01-2024 Sodium [Moles/Vol] 132 mmol/L Low 133-145 [facility] Total proteinOrdered By: Wilner Vazquez on 10-01-2024 Protein [Mass/Vol] 6.8 g/dL 5.9-8.4 [facility] White blood cell (WBC) count Ordered By: Mary Ann Vazquez on 10-01-2024 WBC (Bld) [#/Vol] 8.4 10*3/uL 4.4-11.0 [facility] Coronary Angiography CTon Coronary Angiography CT [facility] [address] [place] [address] 07/20/24754 MR#: [id number] Acct: [id number] Name: REYMUNDO ALANIS Rep #: [id number] : 1965 59 From: Arron Soto MD [...] of plaque Conclusion: No atherosclerotic plaque noted. 07/20/24756 Date Arron Prestonigner Signature (if applicable): Date CC: Dr. Nathanael Frazier MD; Dr. Arron Soto MD Signed Normal [facility] Limited Chest CT Cardiac Onl yon 07-20-[address] Cardiac Only [facility] [address] [place], [place] [id number] Limited Chest CT Cardiac Only MR#: [id number] Acct: [id number] Name: REYMUNDO ALANIS Rep #: [id number] : 1965 F 59 From: Bharat reynolds MD PCP: Dr. Nathanael Frazier MD Status: REG REF Study: Limited Chest CT Cardiac Only Date of Exam: Exam# [id number] Ordering Dr: Nathanael Frazier MD PROCEDURE: LIMITED [...] calcification (CAC) is is absent Reading Location: [place] [address] CC: Dr. Nathanael Frazier MD Grooming Assistant: Signed Normal [facility] CBC W/Diff, Automatedon 12-1 Absolute Lymph 1.63 X10 3/uL Normal 0.83-4.51 [facility] Comment on above: Performed By: #### L 500.4050, L100.0100 #### [facility] [address] [place], [place], [id number] Absolute Neut 3.5 X10 3/uL Normal 2.0-7.7 [facility] Comment on above: Performed By: #### L 500.4050, L100.0100 #### [facility] [address] [place], [address] Basophils/100 WBC (Bld) 0.7 % Normal 0-1 [facility] Comment on above: Performed By: #### L 500.4050, L100.0100 #### [facility] [address] [place], [address] Eosinophils/100 WBC (Bld) 0.9 % Normal 0-5 [facility] Comment on above: Performed By: #### L 500.4050, L100.0100 #### [facility] [address] [place], [address] Erythrocyte distribution width (RBC) [Ratio] 11.9 % Normal 11.6-14.6 [facility] Comment on above: Performed By: #### L 500.4050, L100.0100 #### [facility] [address] [place], [address] Hematocrit (Bld) [Volume fraction] 36.5 % Low 37-47 [facility] Comment on above: Performed By: #### L 500.4050, L100.0100 #### [facility] [address] [place], [address] Hemoglobin (Bld) [Mass/Vol] 12.8 g/dL Normal 12.0-15.0 [facility] Comment on above: Performed By: #### L 500.4050, L100.0100 #### [facility] [address] [place], [address] IG% 0.400 Normal 0.0-0.9 [facility] Comment on above: Result Comment: IG% - Immature Granulocytes (promyelocytes, myelocytes and metamyelocytes) > 1% indicates that a LEFT SHIFT is Present. Performed By: #### L 500.4050, L100.0100 #### [facility] [address] [place], [address] Lymphocytes/100 WBC (Bld) 28.8 % Normal 19-41 [facility] Comment on above: Performed By: #### L 500.4050, L100.0100 #### [facility] [address] [place], [address] MCH (RBC) [Entitic mass] 32.7 pg High 27.0-32.0 [facility] Comment on above: Performed By: #### L 500.4050, L100.0100 #### [facility] [address] [place], [address] MCHC (RBC) [Mass/Vol] 35.1 g/dL Normal 32-36 [facility] Comment on above: Performed By: #### L 500.4050, L100.0100 #### [facility] [address] [place], [address] MCV (RBC) [Entitic vol] 93.4 fL Normal 81-99 [facility] Comment on above: Performed By: #### L 500.4050, L100.0100 #### [facility] [address] [place], [address] Monocytes/100 WBC (Bld) 7.1 % Normal 0-10 [facility] Comment on above: Performed By: #### L 500.4050, L100.0100 #### [facility] [address] [place], [address] Neutrophils/100 WBC (Bld) 62.1 % Normal 47-70 [facility] Comment on above: Performed By: #### L 500.4050, L100.0100 #### [facility] [address] [place], [address] Nucleated RBC (Bld) [#/Vol] 0 10*3/uL Normal 0-5 [facility] Comment on above: Performed By: #### L 500.4050, L100.0100 #### [facility] [address] [place], [address] Platelet mean volume (Bld) [Entitic vol] 8.8 fL Normal 6.2-12.0 [facility] Comment on above: Performed By: #### L 500.4050, L100.0100 #### [facility] [address] [place], [address] Platelets (Bld) [#/Vol] 296 10*3/uL Normal 150-450 [facility] Comment on above: Performed By: #### L 500.4050, L100.0100 #### [facility] [address] [place], [address] RBC (Bld) [#/Vol] 3.91 10*6/uL Low 4.2-5.4 [facility] Comment on above: Performed By: #### L 500.4050, L100.0100 #### [facility] [address] [place], [address] RDW SD 39.9 fl Normal 35.1-43.9 [facility] Comment on above: Performed By: #### L 500.4050, L100.0100 #### [facility] [address] [place], [address] WBC (Bld) [#/Vol] 5.7 10*3/uL Normal 4.4-11.0 [facility] Comment on above: Performed By: #### L 500.4050, L100.0100 #### [facility] [address] [place], [address] Comprehensive Metabolic Prof ilon 04-10-2024 Albumin [Mass/Vol] 3.7 g/dL Normal 3.2-5.0 [facility] Comment on above: Performed By: #### L 500.4050, L100.0100 #### [facility] [address] [place], [address] Albumin/Globulin [Mass ratio] 1.1 {ratio} Normal 0.9-2.4 [facility] Comment on above: Performed By: #### L 500.4050, L100.0100 #### [facility] [address] [place], [address] ALK P 90 U/L Normal 45-117 [facility] Comment on above: Performed By: #### L 500.4050, L100.0100 #### [facility] [address] [place], [address] ALT [Catalytic activity/Vol] 33 U/L Normal 13-56 [facility] Comment on above: Performed By: #### L 500.4050, L100.0100 #### [facility] [address] [place], [address] AST [Catalytic activity/Vol] 22 U/L Normal 15-37 [facility] Comment on above: Performed By: #### L 500.4050, L100.0100 #### [facility] [address] [place], [address] Bilirubin [Mass/Vol] 0.40 mg/dL Normal 0.20-1.00 [facility] Comment on above: Result Comment: For patients on eltrombopag therapy, use of Dimension [place] TBIL is not recommended. Performed By: #### L 500.4050, L100.0100 #### [facility] [address] [place], [address] BUN/CRE 16.3 RATIO Normal 10-20 [facility] Comment on above: Performed By: #### L 500.4050, L100.0100 #### [facility] [address] [place], [address] CA,Total 8.9 mg/dL Normal 8.5-10.1 [facility] Comment on above: Performed By: #### L 500.4050, L100.0100 #### [facility] [address] [place], [address] Chloride [Moles/Vol] 102 mmol/L Normal 98-107 [facility] Comment on above: Performed By: #### L 500.4050, L100.0100 #### [facility] [address] [place], [address] CO2 [Moles/Vol] 25.0 mmol/L Normal 21.0-32.0 [facility] Comment on above: Performed By: #### L 500.4050, L100.0100 #### [facility] [address] [place], [address] Creatinine [Mass/Vol] 0.43 mg/dL Low 0.55-1.02 [facility] Comment on above: Result Comment: The validity of the calculated GFR GFRAA in patients over 70 years has not been determined. Clinical correlation is essential. Performed By: #### L 500.4050, L100.0100 #### [facility] [address] [place], [address] EST GFR - AA 193 mL/min Normal >60 [facility] Comment on above: Result Comment: Afri can [place] GFR Calc Performed By: #### L 500.4050, L100.0100 #### [facility] [address] [place], [address] GAP 6 Normal 5-15 [facility] Comment on above: Performed By: #### L 500.4050, L100.0100 #### [facility] [address] [place], [address] GFR/1.73 sq M.predicted among non-blacks MDRD (S/P/Bld) [Vol rate/Area] 160 mL/min/{1.73_m2} Normal >60 [facility] Comment on above: Result Comment: Non- GFR Calc Performed By: #### L 500.4050, L100.0100 #### [facility] [address] [place], [address] Globulin (S) [Mass/Vol] 3.3 g/dL Normal 2.2-4.2 [facility] Comment on above: Performed By: #### L 500.4050, L100.0100 #### [facility] [address] [place], [address] Glucose [Mass/Vol] 105 mg/dL Normal 74-106 [facility] Comment on above: Result Comment: Fast ing Glucose result from 100 to 125 mg/dL suggests IMPAIRED HOMEOSTASIS per A.D.A. criteria. Performed By: #### L 500.4050, L100.0100 #### [facility] [address] [place], [address] Potassium [Moles/Vol] 4.1 mmol/L Normal 3.5-5.1 [facility] Comment on above: Performed By: #### L 500.4050, L100.0100 #### [facility] [address] [place], [address] Sodium [Moles/Vol] 133 mmol/L Low 136-145 [facility] Comment on above: Performed By: #### L 500.4050, L100.0100 #### [facility] [address] [place], [address] T PROT 7.0 g/dL Normal 6.4-8.2 [facility] Comment on above: Performed By: #### L 500.4050, L100.0100 #### [facility] [address] [place], [address] Urea nitrogen [Mass/Vol] 7 mg/dL Normal 7-18 [facility] Comment on above: Performed By: #### L 500.4050, L100.0100 #### [facility] [place], [address] CNOVon 03-05-2024 CNOV Office Visit (OBGYWM ) -- REYMUNDO ALANIS ([id number]) 1965 F Date Time Provider Department 03/05/24 3:30 PM JADE FERGUSON OBGYWM During your visit today, we recorded the following information about you: Weight Height 69.4 kg 1.542 m Jade Ferguson APRN.CNP 03/05/2024 4:01 PM Signed Founder And Chief Technical Officer offered: Patient declines. Ricketts is a 59 [...] Ectopic0 Multiple1 Live Births0 Comment: [employer]. 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 As applicable, any other physician, advance practice provider, medical student, or other health professional student that will be observing or involved in the sensitive examination for educational or training purposes was discussed with the Patient or Authorized Skin Carver. The Patient or Authorized Skin Carver has agreed to proceed with the sensitive [...] external genitalia normal, normal Bartholin's glands, urethra, Boone's glands, no vulvar lesions, physiologic discharge present, normal appearing perineal body and perianal region, cervix surgically absent BIMANUAL: no adnexal masses, non-tender, and uterus surgically absent RECTOVAGINAL: deferred. NEURO: alert and oriented x3,exam grossly non-focal EXTREMITIES: normal ASSESSMENT/PLAN: 1) Health maintenance: Pap/HPV screening no longer needed Mammogram ordered Mammogram up to date Nutrition, exercise and routine hea (more content not included)... Normal [facility] Colonoscopy Reporton 024 Colonoscopy Report [facility] Medical Records Department [address] [place] [address] Colonoscopy Report MR#: [id number] Acct: [id number] Name: REYMUNDO ALANIS Rep #: [id number] : 1965 59 From: Chase Guadarrama DO PCP: Dr. Nathanael Frazier MD [place] Patient Name: Reymundo Alanis Procedure Date: 02/23/2024 [...] for surveillance. Procedure Code(s): --- Professional --- 43011, Colonoscopy, flexible; with biopsy, single or multiple CPT copyright 2021 [employer]. All rights reserved. The codes documented in this report are preliminary and upon merchandising stock associate review may be revised to meet current compliance requirements. Chase Guadarrama DO 02/23/2024 10:22:24 AM This report has been signed electronically. Number of Addenda: 0 Note Initiated On: 02/23/2024 9:52 AM 02/23/24 1022 Date Chase Sheffield Signature: Date (if indicated) CC: Dr. Nathanael Frazier MD; Chase Guadarrama DO Date Dictated: 02/23/24951 Date Transcribed: Grooming Assistant: GUZMAN Signed [facility] MR/POSTOP.ANE 02-23-2024 MR/POSTOP.[facility] Medical Records Department [address] [place] [address] Anesthesia Postop Eval I 02/23/24 1028 MR#: [id number] Acct: [id number] Name: REYMUNDO ALANIS Rep #: [id number] : 1965 59 From: Gabo Ye PCP: Dr. Nathanael Frazier MD [place] [place] Race: C Location: [place] [address] Anesthesia: Postop Eval I Current Vital Signs [...] document: Postop Eval 1 completed: Yes 02/23/24 102 Date Gabo Kolb Signature: Date CC: Signed [facility] MR/[id number] 02-23-2024 MR/POSTOPAN2 [facility] Medical Records Department [address] [place] [address] Anesthesia Postop Eval II 02/23/24 1548 MR#: [id number] Acct: [id number] Name: REYMUNDO ALANIS Rep #: [id number] : 1965 59 From: Mauro Melo MD PCP: Dr. Nathanael Frazier MD Status:[facility] Y Race: C Location: EN Anesthesia Postop [...] Anesthesia Complication: No 02/23/24 1548 Date Mauro Melo MD Cosigner Signature: Date CC: Signed Normal [facility] Specimen Level Rogelio 02-23-2024 Surgery Specimen Level IV Patient Age/Sex Location Account Attending Physician REYMUNDO ALANIS 59/F EN [id number] Chase Guadarrama DO Specimen: [id number] Received: 02/23/24 Status: RAVI Cheema Num: [id number] Spec Type: COLON BX Subm Dr: Chase Guadarrama DO HEADER OPERATION: Colonoscopy PRE-OP DIAGNOSIS: Encounter for screening for malignant neoplasm of colon TISSUE SUBMITTED: Splenic flexure polyp biopsy MICROSCOPIC DIAGNOSIS Splenic flexure polyp, biopsy: Tubular adenoma. 02/24/2024 MICROSCOPIC DESCRIPTION Slides are reviewed. GROSS DESCRIPTION Received in fixative is one container labeled with the patient's name and designated Splenic flexure polyp biopsy. The specimen consists of multiple irregular fragments of light crump soft tissue that in aggregate measure 0.8 x 0.6 x 0.1 cm. The specimen is totally submitted in one cassette. 02/23/2024 TC:1 CPT:80689 Patient Age/Sex Location Account Attending Physician REYMUNDO ALANIS 59/F EN [id number] Chase Guadarrama, DO Signed (signature on file) Dr. Dharmesh Velarde MD 02/24/24 1232 [facility] Comment on above: Performed By: #### P LEDY ####[facility] [id number] [place], [address] 36on 12-09-2023 36 Mammogram scheduled 9:20am on 12/10/24 Normal [facility] 36 TISSUE DENSITY: BIRA DS B - [...] verbalized understanding and agrees with plan. Normal [facility] DBT Breast - bilateral scree lollyn 12-09-2023 No mammographic evid ence of malignancy. [...] MD Electronically Signed Date/Time: 12/09/2023 10:47 AM [facility] Patient Name: REYMUNDO BLANKENSHIP : 1965 Exam Date/Time: 12/09/2023 09:35 Procedure: BI MAMMOGRAM [...] images: BB's = Nipples; skin lesions Open [place]-apache = Palpable Line = Scar COMPARISON: 12/06/2022 and 11/15/2021 TISSUE DENSITY: BIRADS B - There are scattered fibroglandular densities. FINDINGS: No suspicious masses, architectural distortions or suspiciously clustered microcalcifications are identified. There is no evidence of skin thickening or nipple retraction. There are no significant changes when compared with prior studies. [facility] Kathleen Oneil MD - 12/09/2023 Patient Name: REYMUNDO BLANKENSHIP : 1965 [id number] Exam Date/Time: 12/09/2023 09:35 Procedure: BI MAMMOGRAM [...] images: BB's = Nipples; skin lesions Open [place]-apache = Palpable Line = Scar COMPARISON: 12/06/2022 [...] of this examination. LIFETIME BREAST CANCER RISK: SilavnoCarrillokhushi 8: 13.26% - If greater than or [...] Electronically Signed Date/Time: 12/09/2023 10:47 AM EDT [facility] Radiology Study observation (narrative) [facility] DBT Breast - bilateral scree ningOrdered By: Kathleen Oneil on 12-09-2023 [facility] Work Phone: Office Visiton 12-09-2023 Follow-up visit [id number] Laurie Blankenship 1965 F Date Provider Department Center 12/09/2023 16786-PEBMZARENY DONOVAN [facility] BRS None Family History Problem Relation Age of [...] Grandmother Maternal Grandfather Mother's Sister Level of Service:31498 [place] PREV MED CNSL&/RSK FCTR RDCTJ INDV APPROX 15 MIN Reason for Visit and Comments: 1 Year Follow-up [670] - Breast exam Normal [facility] Progress Noteon 12-09-2023 Progress Note Chief Complaint Patient presents with 1 Year Follow-up Breast exam HPI: Reymundo Blankenship is a 58 y.o. female who presents for annual clinical breast exam Breast history: -05/23/2022: LEFT diagnostic mammogram/ultrasound ([facility]) demonstrated retroareolar ductal dilation -06/05/2022: She was seen in the breast center by Dr. Avalos. Repeat diagnostic imaging recommended -06/07/2022: She was seen at the breast center for genetic testing. -06/07/2022: LEFT breast ultrasound here at [facility] demonstrated mildly dilated ducts. The radiologist notes [...] prefer to follow here at the breast [facility] for annual mammogram and breast exam. She has a significant family history of cancer. See family history section of this note. She did have [employer]Next panel panel genetic testing 05/2022 which [...] Menopause: Post; she had a hysterectomy in 2012 at the age of 46. She retains her ovaries. Physical Activity: She walks occasionally. We discussed the [place] [employer] recommends that adults get at least 150 minutes of moderate intensity or 75 minutes of vigorous intensity activity each week Nutrition: She has been trying to follow a healthy diet. We discussed a plant based diet and limiting added hormones in her meat and dairy. Weight: Stable; BMI 27.78 Smoking: She previously quit in 2013. She did resume smoking due to stress [...] on file prior (more content not included)... [facility] CNOVon 11-24-2023 CNOV Office Visit (GENSWS ) -- LAURAREYMUNDO ([id number]) 1965 F Date Time Provider Department 11/24/23 11:45 AM VERNELL VANEGAS GENS During your visit today, we recorded the following information about you: Temperature Pulse Blood pressure Weight 98.1 degrees 78/minute 118/72 66.8 kg Height 1.549 m Vernell Vanegas APRN.STRUCTURED CABLING TECHNICIAN 11/24/2023 12:13 PM Signed HISTORY AND PHYSICAL Reymundo Walker Blankenship : 1965 REFERRING PHYSICIAN: No referring [...] entered by the nurse and reviewed by sc Nursing Notes: Karla Pollard RN 11/24/2023 11:32 [...] disease, NOTES (more content not included)... Normal [facility] Basophil percentageOrdered B y: Bebe William on 07-05-2023 Chloride [Moles/Vol] 101 mmol/L 98-107 [facility] Glucose [Mass/Vol] 102 mg/dL 74-106 [facility] Comment on above: Fasting Glucose resu lt from 100 to 125 mg/dL suggests IMPAIRED HOMEOSTASIS per A.D.A. criteria. Potassium [Moles/Vol] 4.0 mmol/L 3.5-5.1 [facility] Sodium [Moles/Vol] 133 mmol/L 136-145 [facility] - Chemistry and C hemistry - challengeOrdered By: Bebe William on 07-05-2023 CO2 [Moles/Vol] 28.0 mmol/L 21.0-32.0 [facility] Urea nitrogen/Creatinine [Mass ratio] 18.7 mg/mg 10-20 [facility] No Panel InformationOrdered By: Bebe William on 07-05-2023 Estimated GFR (MDRD) Amer 150 mL/min >60 [facility] Comment on above: GFR Calc Estimated GFR (MDRD) Non-Af Amer 124 mL/min >60 [facility] Comment on above: Non- GFR Calc Serum or plasma calcium marco urement (mass/volume)Ordered By: Bebe William on 07-05-2023 Calcium [Mass/Vol] 8.7 mg/dL 8.5-10.1 [facility] Serum or plasma creatinine m easurement (mass/volume)Ordered By: Bebe William on 07-05-2023 Creatinine [Mass/Vol] 0.54 mg/dL 0.55-1.02 [facility] Comment on above: The validity of the calculated GFR & GFRAA in patients over 70 years has not been determined. Clinical correlation is essential. Serum or plasma urea nitroge n measurement (mass/volume)Ordered By: Bebe William on 07-05-2023 Urea nitrogen [Mass/Vol] 10 mg/dL 7-18 [facility] Thin prep Papanicolaou smear with manual screeningOrdered By: Bebe William on 07-05-2023 Thin prep Papanicolaou smear with manual screening 4 5-15 [facility] Absolute lymphocyte countOrd ered By: Mary Ann Vazquez on 06-17-2023 Lymphocytes Auto (Unsp spec) [#/Vol] 2.37 10*3/uL 0.83-4.51 [facility] Automated lymphocyte count a s percentage of total leukocytesOrdered By: Mary Ann Vazquez on 06-17-2023 Lymphocytes/100 WBC Auto (Unsp spec) 31.0 % 19-41 [facility] Basophil percentageOrdered B y: Mary Ann Vazquez on 06-17-2023 Basophils/100 WBC (Bld) 0.5 % 0-1 [facility] Bilirubin [Mass/Vol] 0.50 mg/dL 0.20-1.00 [facility] Comment on above: For patients on eltr ombopag therapy, use of Dimension [place] TBIL is not recommended. Chloride [Moles/Vol] 95 mmol/L 98-107 [facility] Eosinophils/100 WBC (Bld) 1.3 % 0-5 [facility] Glucose [Mass/Vol] 93 mg/dL 74-106 [facility] Hemoglobin (Bld) [Mass/Vol] 12.7 g/dL 12.0-15.0 [facility] Monocytes/100 WBC (Bld) 7.1 % 0-10 [facility] Neutrophils (Bld) [#/Vol] 4.6 10*3/uL 2.0-7.7 [facility] Neutrophils/100 WBC (Bld) 59.6 % 47-70 [facility] Potassium [Moles/Vol] 4.0 mmol/L 3.5-5.1 [facility] Protein [Mass/Vol] 6.9 g/dL 6.4-8.2 [facility] Sodium [Moles/Vol] 129 mmol/L 136-145 [facility] WBC (Bld) [#/Vol] 7.6 10*3/uL 4.4-11.0 [facility] Determination of erythrocyte mean corpuscular volume (MCV)Ordered By: Mary Ann Vazquez on 06-17-2023 MCV (RBC) [Entitic vol] 97.6 fL 81-99 [facility] Erythrocyte distribution wid th ratioOrdered By: [facility] Taylor on 06-17-2023 Erythrocyte distribution width (RBC) [Ratio] 11.9 % 11.6-14.6 [facility] Erythrocyte distribution wid th standard deviationOrdered By: Mary Annjun Vazquez on 06-17-2023 Erythrocyte distribution width (RBC) [Entitic vol] 43.0 fL 35.1-43.9 [facility] Hematocrit Auto (Bld) [Volum e fraction]Ordered By: Mary Ann Vazquez on 06-17-2023 Hematocrit (Bld) [Volume fraction] 36.5 % 37-47 [facility] Immature granulocytes/100 WB C Auto (Bld)Ordered By: Mary Ann Vazquez on 06-17-2023 Immature granulocytes/100 WBC (Bld) 0.500 % 0.0-0.9 [facility] Comment on above: IG% - Immature Granu locytes (promyelocytes, myelocytes and metamyelocytes) > 1% indicates that a LEFT SHIFT is Present. Laboratory - Chemistry and C hemistry - challengeOrdered By: Mary Ann Vazquez on 06-17-2023 Albumin/Globulin [Mass ratio] 1.2 {ratio} 0.9-2.4 [facility] ALP [Catalytic activity/Vol] 74 U/L 45-117 [facility] ALT [Catalytic activity/Vol] 28 U/L 13-56 [facility] CO2 [Moles/Vol] 27.0 mmol/L 21.0-32.0 [facility] Globulin (S) [Mass/Vol] 3.2 g/dL 2.2-4.2 [facility] Urea nitrogen/Creatinine [Mass ratio] 22.8 mg/mg 10-20 [facility] - Hematology and Cell countsOrdered By: Mary Ann Vazquez on 06-17-2023 MCH (RBC) [Entitic mass] 34.0 pg 27.0-32.0 [facility] MCHC (RBC) [Mass/Vol] 34.8 g/dL 32-36 [facility] Nucleated RBC/100 WBC (Bld) [Ratio] 0 % 0-5 [facility] Platelet mean volume (Bld) [Entitic vol] 9.3 fL 6.2-12.0 [facility] Platelets (Bld) [#/Vol] 314 10*3/uL 150-450 [facility] No Panel InformationOrdered By: Mary Ann Vazquez on 06-17-2023 Estimated GFR (MDRD) Amer 189 mL/min >60 [facility] Comment on above: GFR Calc Estimated GFR (MDRD) Non-Af Amer 156 mL/min >60 [facility] Comment on above: Non- GFR Calc RBC Auto (Bld) [#/Vol]Ordere d By: Mary Ann Vazquez on 06-17-2023 RBC (Bld) [#/Vol] 3.74 10*6/uL 4.2-5.4 [facility] Serum or plasma calcium marco urement (mass/volume)Ordered By: Mary Ann Vazquez on 06-17-2023 Calcium [Mass/Vol] 8.5 mg/dL 8.5-10.1 [facility] Serum or plasma creatinine m easurement (mass/volume)Ordered By: Mary Ann Vazquez on 06-17-2023 Creatinine [Mass/Vol] 0.44 mg/dL 0.55-1.02 [facility] Comment on above: The validity of the calculated GFR & GFRAA in patients over 70 years has not been determined. Clinical correlation is essential. Serum or plasma urea nitroge n measurement (mass/volume)Ordered By: Mary Ann Vazquez on 06-17-2023 Urea nitrogen [Mass/Vol] 10 mg/dL 7-18 [facility] Thin prep Papanicolaou smear with manual screeningOrdered By: Mary Ann Vazquez on 06-17-2023 Thin prep Papanicolaou smear with manual screening 3.7 g/dL 3.2-5.0 [facility] Thin prep Papanicolaou smear with manual screening 24 U/L 15-37 [facility] Thin prep Papanicolaou smear with manual screening 7 5-15 [facility] Absolute lymphocyte countOrd ered By: Mary Ann Vazquez on 01-23-2023 Lymphocytes Auto (Unsp spec) [#/Vol] 2.10 10*3/uL 0.83-4.51 [facility] Basophil percentageOrdered B y: Mary Ann Vazquez on 01-23-2023 Basophils/100 WBC (Bld) 0.4 % 0-1 [facility] Bilirubin [Mass/Vol] 0.20 mg/dL 0.20-1.00 [facility] Comment on above: For patients on eltr ombopag therapy, use of Dimension [place] TBIL is not recommended. Chloride [Moles/Vol] 97 mmol/L 98-107 [facility] Eosinophils/100 WBC (Bld) 1.2 % 0-5 [facility] Glucose [Mass/Vol] 90 mg/dL 74-106 [facility] Neutrophils (Bld) [#/Vol] 4.9 10*3/uL 2.0-7.7 [facility] Neutrophils/100 WBC (Bld) 64.5 % 47-70 [facility] Potassium [Moles/Vol] 3.6 mmol/L 3.5-5.1 [facility] Protein [Mass/Vol] 6.6 g/dL 6.4-8.2 [facility] Sodium [Moles/Vol] 131 mmol/L 136-145 [facility] WBC (Bld) [#/Vol] 7.6 10*3/uL 4.4-11.0 [facility] Blood erythrocytes count (nu mber/volume)Ordered By: Mary Ann Vazquez on 01-23-2023 RBC (Bld) [#/Vol] 3.93 10*6/uL 4.2-5.4 [facility] Blood hemoglobin measurement (mass/volume)Ordered By: Mary Ann Vazquez on 01-23-2023 Hemoglobin (Bld) [Mass/Vol] 13.4 g/dL 12.0-15.0 [facility] Blood lymphocytes/100 leukoc ytesOrdered By: Mary Annjun Vazquez on 01-23-2023 Lymphocytes/100 WBC (Bld) 27.7 % 19-41 [facility] Blood monocytes/100 leukocyt esOrdered By: Mary Annjun Vazquez on 01-23-2023 Monocytes/100 WBC (Bld) 5.8 % 0-10 [facility] Blood platelet mean volumeOr dered By: Mary Ann Vazquez on 01-23-2023 Platelet mean volume (Bld) [Entitic vol] 9.4 fL 6.2-12.0 [facility] Determination of erythrocyte mean corpuscular volume (MCV)Ordered By: Mary Ann Vazquez on 01-23-2023 MCV (RBC) [Entitic vol] 98.2 fL 81-99 [facility] Hematocrit Auto (Bld) [Volum e fraction]Ordered By: [facility] Taylor on 01-23-2023 Hematocrit (Bld) [Volume fraction] 38.6 % 37-47 [facility] - Chemistry and C hemistry - challengeOrdered By: [facility] Taylor on 01-23-2023 ALP [Catalytic activity/Vol] 79 U/L 45-117 [facility] ALT [Catalytic activity/Vol] 37 U/L 13-56 [facility] CO2 [Moles/Vol] 27.0 mmol/L 21.0-32.0 [facility] Globulin (S) [Mass/Vol] 2.9 g/dL 2.2-4.2 [facility] Urea nitrogen/Creatinine [Mass ratio] 19.7 mg/mg 10-20 [facility] - Hematology and Cell countsOrdered By: Mary Annjun Vazquez on 01-23-2023 Erythrocyte distribution width (RBC) [Entitic vol] 45.3 fL 35.1-43.9 [facility] Erythrocyte distribution width (RBC) [Ratio] 12.5 % 11.6-14.6 [facility] Immature granulocytes/100 WBC (Bld) 0.400 % 0.0-0.9 [facility] Comment on above: IG% - Immature Granu locytes (promyelocytes, myelocytes and metamyelocytes) > 1% indicates that a LEFT SHIFT is Present. MCH (RBC) [Entitic mass] 34.1 pg 27.0-32.0 [facility] Nucleated RBC/100 WBC (Bld) [Ratio] 0 % 0-5 [facility] MCHC Auto (RBC) [Mass/Vol]Or dered By: Mary Ann Vazquez on 01-23-2023 MCHC (RBC) [Mass/Vol] 34.7 g/dL 32-36 [facility] No Panel InformationOrdered By: Mary Ann Vazquez on 01-23-2023 Estimated GFR (MDRD) Amer 206 mL/min >60 [facility] Comment on above: GFR Calc Estimated GFR (MDRD) Non-Af Amer 170 mL/min >60 [facility] Comment on above: Non- GFR Calc Platelets bldOrdered By: Wilner Vazquez on 01-23-2023 Platelets (Bld) [#/Vol] 338 10*3/uL 150-450 [facility] Serum or plasma albumin marco urement (mass/volume)Ordered By: Mary Ann Vazquez on 01-23-2023 Albumin [Mass/Vol] 3.7 g/dL 3.2-5.0 [facility] Serum or plasma albumin/glob ulin mass ratioOrdered By: Mary Ann Vazquez on 01-23-2023 Albumin/Globulin [Mass ratio] 1.3 {ratio} 0.9-2.4 [facility] Serum or plasma calcium marco urement (mass/volume)Ordered By: Mary Ann Vazquez on 01-23-2023 Calcium [Mass/Vol] 8.8 mg/dL 8.5-10.1 [facility] Serum or plasma creatinine m easurement (mass/volume)Ordered By: Mary Ann Vazquez on 01-23-2023 Creatinine [Mass/Vol] 0.41 mg/dL 0.55-1.02 [facility] Comment on above: The validity of the calculated GFR & GFRAA in patients over 70 years has not been determined. Clinical correlation is essential. Serum or plasma urea nitroge n measurement (mass/volume)Ordered By: Mary Ann Vazquez on 01-23-2023 Urea nitrogen [Mass/Vol] 8 mg/dL 7-18 [facility] Thin prep Papanicolaou smear with manual screeningOrdered By: Mary Ann Vazquez on 01-23-2023 Thin prep Papanicolaou smear with manual screening 27 U/L 15-37 [facility] Thin prep Papanicolaou smear with manual screening 7 5-15 [facility] DBT Breast - bilateral diagn osticon [...] images: BB's = Nipples; skin lesions Open [place]-apache = Palpable Line = Scar TISSUE DENSITY: [...] benign change. No further follow-up is needed. [facility] Sai Harvey MD - 12/06/2022 Patient Name: REYMUNDO BLANKENSHIP : 1965 Exam Date/Time: 12/06/2022 13:30 Procedure: BI MAMMOGRAM DIAGNOSTIC TOMOSYNTHESIS BILATERAL Ordering Provider: MARKHAM ELIZABETH Reason For Exam: f/u duct ectasia COMPARISONS: 2022; 2021; 2020 MAMMOGRAM: Image views: 2D CC and MLO views were acquired. 3D CC and MLO views were acquired. Markings on images: BB's = Nipples; skin lesions Open [place]-apache = Palpable Line = Scar TISSUE DENSITY: [...] Electronically Signed Date/Time: 12/06/2022 1:48 PM EDT [facility] Radiology Study observation (narrative) [facility] No Panel Informationon 12-06 Interval decrease in [...] Electronically Signed Date/Time: 12/06/2022 1:48 PM EDT [employer] No Panel InformationOrdered By: Sai Harvey on 12-06-2022 [employer] Phone: US Breast - left limitedon 0 [...] images: BB's = Nipples; skin lesions Open [place]-apache = Palpable Line = Scar TISSUE DENSITY: [...] benign change. No further follow-up is needed. [facility] Sai Harvey MD - 12/06/2022 Patient Name: REYMUNDO BLANKENSHIP : 1965 Exam Date/Time: 12/06/2022 13:38 Procedure: BI US BREAST LIMITED LEFT Ordering Provider: MARKHAM ELIZABETH Reason For Exam: f/u duct ectasia COMPARISONS: 2022; 2021; 2020 MAMMOGRAM: Image views: 2D CC and MLO views were acquired. 3D CC and MLO views were acquired. Markings on images: BB's = Nipples; skin lesions Open [place]-apache = Palpable Line = Scar TISSUE DENSITY: [...] Electronically Signed Date/Time: 12/06/2022 1:48 PM EDT [facility] Radiology Study observation (narrative) [facility] MR Breast - bilateral WO and W [...] Electronically Signed Date/Time: 11/12/2022 2:39 PM EDT [facility] [employer] SYSTEM Patient Name: REYMUNDO BLANKENSHIP : 1965 [...] axillary or internal mammary lymphadenopathy is appreciated. [facility] Lino Loco MD - 11/12/2022 Patient Name: [...] Electronically Signed Date/Time: 11/12/2022 2:39 PM EDT [facility] Radiology Study observation (narrative) [facility] MR Breast - bilateral WO and W contrast IVOrdered By: Lino Loco on 11-12-2022 [facility] [employer] Work Phone: Absolute lymphocyte countOrd ered By: Mary Ann Vazquez on 11-02-2022 Lymphocytes Auto (Unsp spec) [#/Vol] 1.26 10*3/uL 0.83-4.51 [facility] Basophil percentageOrdered B y: Mary Ann Vazquez on 11-02-2022 Basophils/100 WBC (Bld) 0.7 % 0-1 [facility] Eosinophils/100 WBC (Bld) 0.9 % 0-5 [facility] Neutrophils (Bld) [#/Vol] 4.0 10*3/uL 2.0-7.7 [facility] Neutrophils/100 WBC (Bld) 68.7 % 47-70 [facility] WBC (Bld) [#/Vol] 5.8 10*3/uL 4.4-11.0 [facility] Bilirubin [Mass/Vol] 0.20 mg/dL 0.20-1.00 [facility] Comment on above: For patients on eltr ombopag therapy, use of Dimension [place] TBIL is not recommended. Chloride [Moles/Vol] 105 mmol/L 98-107 [facility] Cholesterol [Mass/Vol] 182 mg/dL <200 [facility] Comment on above: <200 mg/dL Desirable 200-240 mg/dL Borderline >240 mg/dL High Risk Glucose [Mass/Vol] 97 mg/dL 74-106 [facility] Potassium [Moles/Vol] 4.3 mmol/L 3.5-5.1 [facility] Protein [Mass/Vol] 7.4 g/dL 6.4-8.2 [facility] Sodium [Moles/Vol] 136 mmol/L 136-145 [facility] Triglyceride [Mass/Vol] 62 mg/dL <199 [facility] Comment on above: The drugs N-Acetylcy steine and Metamizole may falsely depress this assay.Serum Triglycerides Reference Interval Normal <150 mg/dL Borderline high 150 - 199 mg/dL High 200 - 499 mg/dL Very High > or = 500 mg/dL Blood erythrocytes count (nu mber/volume)Ordered By: Mary Ann Vazquez on 11-02-2022 RBC (Bld) [#/Vol] 4.13 10*6/uL 4.2-5.4 [facility] Blood hemoglobin measurement (mass/volume)Ordered By: Mary Ann Vazquez on 11-02-2022 Hemoglobin (Bld) [Mass/Vol] 13.7 g/dL 12.0-15.0 [facility] Blood lymphocytes/100 leukoc ytesOrdered By: Mary Ann Vazquez on 11-02-2022 Lymphocytes/100 WBC (Bld) 21.9 % 19-41 [facility] Blood monocytes/100 leukocyt esOrdered By: Mary Ann Vazquez on 11-02-2022 Monocytes/100 WBC (Bld) 7.3 % 0-10 [facility] Blood platelet mean volumeOr dered By: Mary Ann Vazquez on 11-02-2022 Platelet mean volume (Bld) [Entitic vol] 9.1 fL 6.2-12.0 [facility] Determination of erythrocyte mean corpuscular volume (MCV)Ordered By: Mary Ann Vazquez on 11-02-2022 MCV (RBC) [Entitic vol] 99.3 fL 81-99 [facility] Hematocrit Auto (Bld) [Volum e fraction]Ordered By: Mary Ann Vazquez on 11-02-2022 Hematocrit (Bld) [Volume fraction] 41.0 % 37-47 [facility] Laboratory - Chemistry and C hemistry - challengeOrdered By: Mary Annjun Vazquez on 11-02-2022 ALP [Catalytic activity/Vol] 103 U/L 45-117 [facility] ALT [Catalytic activity/Vol] 38 U/L 13-56 [facility] CO2 [Moles/Vol] 27.0 mmol/L 21.0-32.0 [facility] Globulin (S) [Mass/Vol] 3.9 g/dL 2.2-4.2 [facility] Urea nitrogen/Creatinine [Mass ratio] 19.3 mg/mg 10-20 [facility] - Hematology and Cell countsOrdered By: Mary Ann Vazquez on 11-02-2022 Erythrocyte distribution width (RBC) [Entitic vol] 45.7 fL 35.1-43.9 [facility] Erythrocyte distribution width (RBC) [Ratio] 12.6 % 11.6-14.6 [facility] Immature granulocytes/100 WBC (Bld) 0.500 % 0.0-0.9 [facility] Comment on above: IG% - Immature Granu locytes (promyelocytes, myelocytes and metamyelocytes) > 1% indicates that a LEFT SHIFT is Present. MCH (RBC) [Entitic mass] 33.2 pg 27.0-32.0 [facility] Nucleated RBC/100 WBC (Bld) [Ratio] 0 % 0-5 [facility] MCHC Auto (RBC) [Mass/Vol]Or dered By: Mary Ann Vazuqez on 11-02-2022 MCHC (RBC) [Mass/Vol] 33.4 g/dL 32-36 [facility] No Panel InformationOrdered By: Mary Ann Vazquez on 11-02-2022 Estimated GFR (MDRD) Amer 140 mL/min >60 [facility] Comment on above: GFR Calc Estimated GFR (MDRD) Non-Af Amer 116 mL/min >60 [facility] Comment on above: Non- GFR Calc Platelets bldOrdered By: Wilner Vazquez on 11-02-2022 Platelets (Bld) [#/Vol] 314 10*3/uL 150-450 [facility] Serum or plasma albumin marco urement (mass/volume)Ordered By: Mary Ann Vazquez on 11-02-2022 Albumin [Mass/Vol] 3.5 g/dL 3.2-5.0 [facility] Serum or plasma albumin/glob ulin mass ratioOrdered By: Mary Ann Vazquez on 11-02-2022 Albumin/Globulin [Mass ratio] 0.9 {ratio} 0.9-2.4 [facility] Serum or plasma calcium marco urement (mass/volume)Ordered By: Mary Ann Vazquez on 11-02-2022 Calcium [Mass/Vol] 8.5 mg/dL 8.5-10.1 [facility] Serum or plasma cholesterol in HDL measurement (mass/volume)Ordered By: Mary Ann Vazquez on 11-02-2022 Cholesterol in HDL [Mass/Vol] 77 mg/dL >40 [facility] Comment on above: The drugs N-Acetylcy steine and Metamizole may falsely depress this assay. Reference Range HDL <40 mg/dL Low HDL Cholesterol HDL >or= 60 mg/dL High HDL Cholesterol Serum or plasma cholesterol in VLDL measurement (mass/volume)Ordered By: Mary Ann Vazquez on 11-02-2022 Cholesterol in VLDL [Mass/Vol] 12 mg/dL 5-40 [facility] Serum or plasma creatinine m easurement (mass/volume)Ordered By: Mary Ann Vazquez on 11-02-2022 Creatinine [Mass/Vol] 0.57 mg/dL 0.55-1.02 [facility] Comment on above: The validity of the calculated GFR & GFRAA in patients over 70 years has not been determined. Clinical correlation is essential. Serum or plasma low density lipoprotein (LDL) cholesterol measurement (mass/volume)Ordered By: [facility] Taylor on 11-02-2022 Cholesterol in LDL [Mass/Vol] 93 mg/dL 0-130 [facility] Serum or plasma urea nitroge n measurement (mass/volume)Ordered By: [facility] Taylor on 11-02-2022 Urea nitrogen [Mass/Vol] 11 mg/dL 7-18 [facility] Thin prep Papanicolaou smear with manual screeningOrdered By: Mary Annjun Vazquez on 11-02-2022 Thin prep Papanicolaou smear with manual screening 25 U/L 15-37 [facility] Thin prep Papanicolaou smear with manual screening 4 5-15 [facility] Basophil percentageOrdered B y: Bebe William on 09-09-2022 Bilirubin [Mass/Vol] 0.30 mg/dL 0.20-1.00 [facility] Comment on above: For patients on eltr ombopag therapy, use of Dim[place] TBIL is not recommended. Chloride [Moles/Vol] 101 mmol/L 98-107 [facility] Glucose [Mass/Vol] 92 mg/dL 74-106 [facility] Potassium [Moles/Vol] 3.6 mmol/L 3.5-5.1 [facility] Protein [Mass/Vol] 7.3 g/dL 6.4-8.2 [facility] Sodium [Moles/Vol] 136 mmol/L 136-145 [facility] Laboratory - Chemistry and C hemistry - challengeOrdered By: Bebe William on 09-09-2022 ALP [Catalytic activity/Vol] 96 U/L 45-117 [facility] ALT [Catalytic activity/Vol] 47 U/L 13-56 [facility] CO2 [Moles/Vol] 27.0 mmol/L 21.0-32.0 [facility] Globulin (S) [Mass/Vol] 3.8 g/dL 2.2-4.2 [facility] Urea nitrogen/Creatinine [Mass ratio] 19.2 mg/mg 10-20 [facility] No Panel InformationOrdered By: Bebe William on 09-09-2022 Estimated GFR (MDRD) Amer 139 mL/min >60 [facility] Comment on above: GFR Calc Estimated GFR (MDRD) Non-Af Amer 115 mL/min >60 [facility] Comment on above: Non- GFR Calc Vitamin D 25-Hydroxy 31.3 ng/mL [facility] Comment on above: Vitamin D 25(OH) Sta tus Range Deficiency <20 ng/mL (50nmol/L) Insufficiency 20 - 30 ng/mL (50 - 75 nmol/L) Sufficiency 30 - 100 ng/mL (75 - 250 nmol/L) Toxicity >100 ng/mL (>250 nmol/L) Serum or plasma albumin marco urement (mass/volume)Ordered By: Bebe William on 09-09-2022 Albumin [Mass/Vol] 3.5 g/dL 3.2-5.0 [facility] Serum or plasma albumin/glob ulin mass ratioOrdered By: Bebe William on 09-09-2022 Albumin/Globulin [Mass ratio] 0.9 {ratio} 0.9-2.4 [facility] Serum or plasma calcium marco urement (mass/volume)Ordered By: Bebe William on 09-09-2022 Calcium [Mass/Vol] 8.8 mg/dL 8.5-10.1 [facility] Serum or plasma creatinine m easurement (mass/volume)Ordered By: Bebe William on 09-09-2022 Creatinine [Mass/Vol] 0.57 mg/dL 0.55-1.02 [facility] Comment on above: The validity of the calculated GFR & GFRAA in patients over 70 years has not been determined. Clinical correlation is essential. Serum or plasma urea nitroge n measurement (mass/volume)Ordered By: Bebe William on 09-09-2022 Urea nitrogen [Mass/Vol] 11 mg/dL 7-18 [facility] Thin prep Papanicolaou smear with manual screeningOrdered By: Bebe William on 09-09-2022 Thin prep Papanicolaou smear with manual screening 31 U/L 15-37 [facility] Thin prep Papanicolaou smear with manual screening 8 5-15 [facility] Whole blood hemoglobin A1c/t otal hemoglobin ratio (mass fraction)Ordered By: Bebe William on 09-09-2022 HbA1c (Bld) [Mass fraction] 5.8 % 3.8-5.6 [facility] Comment on above: Normal < 5.7 % Predi abetic 5.7 - 6.4 % Diabetic >or= 6.5 % Please note range changes. Absolute lymphocyte countOrd ered By: Dr. Vazquez on 08-28-2022 Lymphocytes Auto (Unsp spec) [#/Vol] 2.76 10*3/uL 0.83-4.51 [facility] Basophil percentageOrdered B y: Dr. Vazquez on 08-28-2022 Basophils/100 WBC (Bld) 0.4 % 0-1 [facility] Bilirubin [Mass/Vol] 0.20 mg/dL 0.20-1.00 [facility] Comment on above: For patients on eltr ombopag therapy, use of Dim[place] TBIL is not recommended. Chloride [Moles/Vol] 100 mmol/L 98-107 [facility] Eosinophils/100 WBC (Bld) 0.5 % 0-5 [facility] Glucose [Mass/Vol] 126 mg/dL 74-106 [facility] Comment on above: Fasting Glucose resu lt greater than or equal to 126 mg/dL suggests DIABETES MELLITUS per A.D.A. criteria. Neutrophils (Bld) [#/Vol] 6.6 10*3/uL 2.0-7.7 [facility] Neutrophils/100 WBC (Bld) 66.9 % 47-70 [facility] Potassium [Moles/Vol] 3.2 mmol/L 3.5-5.1 [facility] Protein [Mass/Vol] 7.2 g/dL 6.4-8.2 [facility] Sodium [Moles/Vol] 136 mmol/L 136-145 [facility] WBC (Bld) [#/Vol] 9.9 10*3/uL 4.4-11.0 [facility] Blood erythrocytes count (nu mber/volume)Ordered By: Dr. Vazquez on 08-28-2022 RBC (Bld) [#/Vol] 4.19 10*6/uL 4.2-5.4 [facility] Blood hemoglobin measurement (mass/volume)Ordered By: Dr. Vazquez on 08-28-2022 Hemoglobin (Bld) [Mass/Vol] 13.7 g/dL 12.0-15.0 [facility] Blood lymphocytes/100 leukoc ytesOrdered By: Dr. Vazquez on 08-28-2022 Lymphocytes/100 WBC (Bld) 28.0 % 19-41 [facility] Blood monocytes/100 leukocyt esOrdered By: Dr. Vazquez on 08-28-2022 Monocytes/100 WBC (Bld) 3.7 % 0-10 [facility] Blood platelet mean volumeOr dered By: Dr. Vazquez on 08-28-2022 Platelet mean volume (Bld) [Entitic vol] 9.5 fL 6.2-12.0 [facility] Determination of erythrocyte mean corpuscular volume (MCV)Ordered By: Dr. Vazquez on 08-28-2022 MCV (RBC) [Entitic vol] 97.6 fL 81-99 [facility] Hematocrit Auto (Bld) [Volum e fraction]Ordered By: Dr. Vazquez on 08-28-2022 Hematocrit (Bld) [Volume fraction] 40.9 % 37-47 [facility] Laboratory - Chemistry and C hemistry - challengeOrdered By: Dr. Vazquez on 08-28-2022 ALP [Catalytic activity/Vol] 104 U/L 45-117 [facility] ALT [Catalytic activity/Vol] 34 U/L 13-56 [facility] CO2 [Moles/Vol] 27.0 mmol/L 21.0-32.0 [facility] Globulin (S) [Mass/Vol] 3.5 g/dL 2.2-4.2 [facility] Urea nitrogen/Creatinine [Mass ratio] 15.8 mg/mg 10-20 [facility] - Hematology and Cell countsOrdered By: Dr. Vazquez on 08-28-2022 Erythrocyte distribution width (RBC) [Entitic vol] 45.6 fL 35.1-43.9 [facility] Erythrocyte distribution width (RBC) [Ratio] 12.8 % 11.6-14.6 [facility] Immature granulocytes/100 WBC (Bld) 0.500 % 0.0-0.9 [facility] Comment on above: IG% - Immature Granu locytes (promyelocytes, myelocytes and metamyelocytes) > 1% indicates that a LEFT SHIFT is Present. MCH (RBC) [Entitic mass] 32.7 pg 27.0-32.0 [facility] Nucleated RBC/100 WBC (Bld) [Ratio] 0 % 0-5 [facility] MCHC Auto (RBC) [Mass/Vol]Or dered By: Dr. Vazquez on 08-28-2022 MCHC (RBC) [Mass/Vol] 33.5 g/dL 32-36 [facility] No Panel InformationOrdered By: Dr. Vazquez on 08-28-2022 Estimated GFR (MDRD) Amer 124 mL/min >60 [facility] Comment on above: GFR Calc Estimated GFR (MDRD) Non-Af Amer 103 mL/min >60 [facility] Comment on above: Non- GFR Calc Platelets bldOrdered By: Dr. Vazquez on 08-28-2022 Platelets (Bld) [#/Vol] 326 10*3/uL 150-450 [facility] Serum or plasma albumin marco urement (mass/volume)Ordered By: Dr. Vazquez on 08-28-2022 Albumin [Mass/Vol] 3.7 g/dL 3.2-5.0 [facility] Serum or plasma albumin/glob ulin mass ratioOrdered By: Dr. Vazquez on 08-28-2022 Albumin/Globulin [Mass ratio] 1.1 {ratio} 0.9-2.4 [facility] Serum or plasma calcium marco urement (mass/volume)Ordered By: Dr. Vazquez on 08-28-2022 Calcium [Mass/Vol] 9.4 mg/dL 8.5-10.1 [facility] Serum or plasma creatinine m easurement (mass/volume)Ordered By: Dr. Vazquez on 08-28-2022 Creatinine [Mass/Vol] 0.63 mg/dL 0.55-1.02 [facility] Comment on above: The validity of the calculated GFR & GFRAA in patients over 70 years has not been determined. Clinical correlation is essential. Serum or plasma urea nitroge n measurement (mass/volume)Ordered By: Dr. Vazquez on 08-28-2022 Urea nitrogen [Mass/Vol] 10 mg/dL 7-18 [facility] Thin prep Papanicolaou smear with manual screeningOrdered By: Dr. Vazquez on 08-28-2022 Thin prep Papanicolaou smear with manual screening 26 U/L 15-37 [facility] Thin prep Papanicolaou smear with manual screening 9 5-15 [facility] Absolute lymphocyte countOrd ered By: Dr. Vazquez on 07-09-2022 Lymphocytes Auto (Unsp spec) [#/Vol] 1.65 10*3/uL 0.83-4.51 [facility] Basophil percentageOrdered B y: Dr. Vazquez on 07-09-2022 Basophils/100 WBC (Bld) 0.7 % 0-1 [facility] Bilirubin [Mass/Vol] 0.20 mg/dL 0.20-1.00 [facility] Comment on above: For patients on eltr ombopag therapy, use of Dimension [place] TBIL is not recommended. Chloride [Moles/Vol] 102 mmol/L 98-107 [facility] Eosinophils/100 WBC (Bld) 0.5 % 0-5 [facility] Glucose [Mass/Vol] 117 mg/dL 74-106 [facility] Comment on above: Fasting Glucose resu lt from 100 to 125 mg/dL suggests IMPAIRED HOMEOSTASIS per A.D.A. criteria. Neutrophils (Bld) [#/Vol] 3.5 10*3/uL 2.0-7.7 [facility] Neutrophils/100 WBC (Bld) 63.2 % 47-70 [facility] Potassium [Moles/Vol] 4.1 mmol/L 3.5-5.1 [facility] Protein [Mass/Vol] 7.3 g/dL 6.4-8.2 [facility] Sodium [Moles/Vol] 136 mmol/L 136-145 [facility] WBC (Bld) [#/Vol] 5.6 10*3/uL 4.4-11.0 [facility] Blood erythrocytes count (nu mber/volume)Ordered By: Dr. Vazquez on 07-09-2022 RBC (Bld) [#/Vol] 4.13 10*6/uL 4.2-5.4 [facility] Blood hemoglobin measurement (mass/volume)Ordered By: Dr. Vazquez on 07-09-2022 Hemoglobin (Bld) [Mass/Vol] 13.3 g/dL 12.0-15.0 [facility] Blood lymphocytes/100 leukoc ytesOrdered By: Dr. Vazquez on 07-09-2022 Lymphocytes/100 WBC (Bld) 29.5 % 19-41 [facility] Blood monocytes/100 leukocyt esOrdered By: Dr. Vazquez on 07-09-2022 Monocytes/100 WBC (Bld) 5.9 % 0-10 [facility] Blood platelet mean volumeOr dered By: Dr. Vazquez on 07-09-2022 Platelet mean volume (Bld) [Entitic vol] 9.1 fL 6.2-12.0 [facility] Determination of erythrocyte mean corpuscular volume (MCV)Ordered By: Dr. Vazquez on 07-09-2022 MCV (RBC) [Entitic vol] 97.3 fL 81-99 [facility] Hematocrit Auto (Bld) [Volum e fraction]Ordered By: Dr. Vazquez on 07-09-2022 Hematocrit (Bld) [Volume fraction] 40.2 % 37-47 [facility] Laboratory - Chemistry and C hemistry - challengeOrdered By: Dr. Vazquez on 07-09-2022 ALP [Catalytic activity/Vol] 104 U/L 45-117 [facility] ALT [Catalytic activity/Vol] 32 U/L 13-56 [facility] CO2 [Moles/Vol] 27.0 mmol/L 21.0-32.0 [facility] Globulin (S) [Mass/Vol] 3.6 g/dL 2.2-4.2 [facility] Urea nitrogen/Creatinine [Mass ratio] 21.2 mg/mg 10-20 [facility] - Hematology and Cell countsOrdered By: Dr. Vazquez on 07-09-2022 Erythrocyte distribution width (RBC) [Entitic vol] 44.1 fL 35.1-43.9 [facility] Erythrocyte distribution width (RBC) [Ratio] 12.3 % 11.6-14.6 [facility] Immature granulocytes/100 WBC (Bld) 0.200 % 0.0-0.9 [facility] Comment on above: IG% - Immature Granu locytes (promyelocytes, myelocytes and metamyelocytes) > 1% indicates that a LEFT SHIFT is Present. MCH (RBC) [Entitic mass] 32.2 pg 27.0-32.0 [facility] Nucleated RBC/100 WBC (Bld) [Ratio] 0 % 0-5 [facility] MCHC Auto (RBC) [Mass/Vol]Or dered By: Dr. Vazquez on 07-09-2022 MCHC (RBC) [Mass/Vol] 33.1 g/dL 32-36 [facility] No Panel InformationOrdered By: Dr. Vazquez on 07-09-2022 Estimated GFR (MDRD) Amer 156 mL/min >60 [facility] Comment on above: GFR Calc Estimated GFR (MDRD) Non-Af Amer 129 mL/min >60 [facility] Comment on above: Non- GFR Calc Hepatitis B Surface Antigen Non-Reactive Nonreactive [facility] Hepatitis C Antibody Non-Reactive Nonreactive [facility] Comment on above: Non Reactive: < 0.8 Equivocal: >/= 0.8 to < 1.0 Reactive: >/= 1.0The CDC recommends that a reactive/equivocal HCV antibody result be followed up by the HCV Nucleic Acid Amplificationtest (313792) Platelets bldOrdered By: Dr. Vazquez on 07-09-2022 Platelets (Bld) [#/Vol] 298 10*3/uL 150-450 [facility] Serum cyclic citrullinated p eptide IgG antibody assay (units/volume)Ordered By: Dr. Vazquez on 07-09-2022 Cyclic citrullinated peptide IgG Qn 3 units 0-19 [facility] Comment on above: Negative <20 Weak po sitive 20 - 39 Moderate positive 40 - 59 Strong positive >59Performed at: [facility] [id number] Director: Patrick Auguste PhD, Phone: [phone] Serum hepatitis B virus surf [place] antibody IgG detectionOrdered By: Dr. Vazquez on 07-09-2022 HBV surface IgG Ql (S) Non-Reactive [facility] Comment on above: Non Reactive: Incons istent with immunity less than <10 mIU/mL Reactive: Consistent with immunity greater than or equal to 10 mIU/mL Serum or plasma albumin marco urement (mass/volume)Ordered By: Dr. Vazquez on 07-09-2022 Albumin [Mass/Vol] 3.7 g/dL 3.2-5.0 [facility] Serum or plasma albumin/glob ulin mass ratioOrdered By: Dr. Vazquez on 07-09-2022 Albumin/Globulin [Mass ratio] 1.0 {ratio} 0.9-2.4 [facility] Serum or plasma calcium marco urement (mass/volume)Ordered By: Dr. Vazquez on 07-09-2022 Calcium [Mass/Vol] 9.1 mg/dL 8.5-10.1 [facility] Serum or plasma creatinine m easurement (mass/volume)Ordered By: Dr. Vazquez on 07-09-2022 Creatinine [Mass/Vol] 0.52 mg/dL 0.55-1.02 [facility] Comment on above: The validity of the calculated GFR & GFRAA in patients over 70 years has not been determined. Clinical correlation is essential. Serum or plasma urea nitroge n measurement (mass/volume)Ordered By: Dr. Vazquez on 07-09-2022 Urea nitrogen [Mass/Vol] 11 mg/dL 7-18 [facility] Serum rheumatoid factor dete ctionOrdered By: Dr. Vazquez on 07-09-2022 Rheumatoid factor Ql (S) < 10.0 IU/mL <15 [facility] Thin prep Papanicolaou smear with manual screeningOrdered By: Dr. Vazquez on 07-09-2022 Thin prep Papanicolaou smear with manual screening 22 U/L 15-37 [facility] Thin prep Papanicolaou smear with manual screening 7 5-15 [facility] Erythrocyte sedimentation ra teOrdered By: Carmen Snow on 04-23-2022 ESR (Bld) [Velocity] 31 mm/h 0-30 [facility] Laboratory - Chemistry and C hemistry - challengeOrdered By: Carmen Snow on 04-23-2022 Cobalamin (Vitamin B12) [Mass/Vol] 564 pg/mL 211-911 [facility] No Panel InformationOrdered By: Carmen Snow on 04-23-2022 Anti-Nuclear Antibody Screen Negative Negative [facility] Comment on above: Performed at: [facility] [address] [id number] Director: Patrick Auguste PhD, Phone: [phone] Thyroid Stimulating Hormone (TSH) 1.58 uIU/mL 0.358-3.74 [facility] Serum cyclic citrullinated p eptide IgG antibody assay (units/volume)Ordered By: Carmen Snow on 04-23-2022 Cyclic citrullinated peptide IgG Qn 7 units 0-19 [facility] Comment on above: Negative <20 Weak po sitive 20 - 39 Moderate positive 40 - 59 Strong positive >59Performed at: [facility] [id number] [place], [place] [id number] Director: Mauro Shrestha PhD, Phone: [phone] at: [facility] [id number] Director: Patrick Auguste PhD, Phone: [phone] Serum or plasma C reactive p rotein measurement (mass/volume)Ordered By: Carmen Snow on 04-23-2022 CRP [Mass/Vol] 8.67 mg/L 0.0-3.0 [facility] Comment on above: C-Reactive Protein ( CRP) provides useful information for thediagnosis, therapy and monitoring of inflammatory processesand associated diseases. For the evaluation of Relative Riskfor Cardiovascular Disease, a High Sensitivity CRP (HSCRP)should be ordered. Serum rheumatoid factor dete ctionOrdered By: Carmen Snow on 04-23-2022 Rheumatoid factor Ql (S) < 10.0 IU/mL <15 [facility] Thin prep Papanicolaou smear with manual screeningOrdered By: Carmen Snow on 04-23-2022 Thin prep Papanicolaou smear with manual screening Negative . [facility] Comment on above: HLA-B*27 HokeyiwhU61 allele interpretation for all loci based on IMGT/HLAdatabase version 3.44This test was developed and its performance characteristicsdetermined by [employer]. It has not been cleared or approvedby the Food and Drug Administration.[facility] CLIA ID Number [id number] test was performed using PCR (Polymerase ChainReaction)/SSOP (Sequence Specific Oligonucleotide Probes)technique. SBT (Sequence Based Typing) and/or SSP(Sequence Specific Primers) may be used as supplementalmethods when necessary. Please contact [facility] CustomerService at if you have any questions. Director of HLA Laboratory Dr Mauro Shrestha, PhD Absolute lymphocyte counton 02-08-2022 Lymphocytes Auto (Unsp spec) [#/Vol] 1.14 10*3/uL 0.83-4.51 [facility] Work Phone: Basophil percentageon 2021 Basophils/100 WBC (Bld) 0.5 % 0-1 [facility] Work Phone: Chloride [Moles/Vol] 99 mmol/L 98-107 [facility] Work Phone: Eosinophils/100 WBC (Bld) 0.5 % 0-5 [facility] Work Phone: Glucose [Mass/Vol] 137 mg/dL 74-106 [facility] Work Phone: Comment on above: Fasting Glucose resu lt greater than or equal to 126 mg/dL suggests DIABETES MELLITUS per A.D.A. criteria. Neutrophils (Bld) [#/Vol] 2.7 10*3/uL 2.0-7.7 [facility] Work Phone: Neutrophils/100 WBC (Bld) 63.5 % 47-70 [facility] Work Phone: Potassium [Moles/Vol] 3.6 mmol/L 3.5-5.1 [facility] Work Phone: Sodium [Moles/Vol] 134 mmol/L 136-145 [facility] Work Phone: WBC (Bld) [#/Vol] 4.3 10*3/uL 4.4-11.0 [facility] Work Phone: Blood erythrocytes count (nu mber/volume)on 02-08-2022 RBC (Bld) [#/Vol] 3.97 10*6/uL 4.2-5.4 [facility] Work Phone: Blood hemoglobin measurement (mass/volume)on 02-08-2022 Hemoglobin (Bld) [Mass/Vol] 13.4 g/dL 12.0-15.0 [facility] Work Phone: Blood lymphocytes/100 leukoc yteson 02-08-2022 Lymphocytes/100 WBC (Bld) 26.6 % 19-41 [facility] Work Phone: Blood monocytes/100 leukocyt eson 02-08-2022 Monocytes/100 WBC (Bld) 8.4 % 0-10 [facility] Work Phone: Blood platelet mean volumeon 02-08-2022 Platelet mean volume (Bld) [Entitic vol] 9.3 fL 6.2-12.0 [facility] Work Phone: Determination of erythrocyte mean corpuscular volume (MCV)on 02-08-2022 MCV (RBC) [Entitic vol] 99.0 fL 81-99 [facility] Work Phone: Hematocrit Auto (Bld) [Volum e fraction]on 02-08-2022 Hematocrit (Bld) [Volume fraction] 39.3 % 37-47 [facility] Work Phone: Laboratory - Chemistry and C hemistry - challengeon 02-08-2022 CO2 [Moles/Vol] 27.0 mmol/L 21.0-32.0 [facility] Work Phone: Urea nitrogen/Creatinine [Mass ratio] 13.6 mg/mg 10-20 [facility] Work Phone: Laboratory - Hematology and Cell countson 02-08-2022 Erythrocyte distribution width (RBC) [Entitic vol] 46.4 fL 35.1-43.9 [facility] Work Phone: Erythrocyte distribution width (RBC) [Ratio] 12.8 % 11.6-14.6 [facility] Work Phone: Immature granulocytes/100 WBC (Bld) 0.500 % 0.0-0.9 [facility] Work Phone: Comment on above: IG% - Immature Granu locytes (promyelocytes, myelocytes and metamyelocytes) > 1% indicates that a LEFT SHIFT is Present. MCH (RBC) [Entitic mass] 33.8 pg 27.0-32.0 [facility] Work Phone: Nucleated RBC/100 WBC (Bld) [Ratio] 0 % 0-5 [facility] Work Phone: MCHC Auto (RBC) [Mass/Vol]on 02-08-2022 MCHC (RBC) [Mass/Vol] 34.1 g/dL 32-36 [facility] Work Phone: No Panel Informationon 02-08 Estimated GFR (MDRD) Amer 135 mL/min >60 [facility] Work Phone: Comment on above: GFR Calc Estimated GFR (MDRD) Non-Af Amer 112 mL/min >60 [facility] Work Phone: Comment on above: Non- GFR Calc Platelets bldon 02-08-2022 Platelets (Bld) [#/Vol] 263 10*3/uL 150-450 [facility] Work Phone: Serum or plasma calcium marco urement (mass/volume)on 02-08-2022 Calcium [Mass/Vol] 8.8 mg/dL 8.5-10.1 [facility] Work Phone: Serum or plasma creatinine m easurement (mass/volume)on 02-08-2022 Creatinine [Mass/Vol] 0.59 mg/dL 0.55-1.02 [facility] Work Phone: Comment on above: The validity of the calculated GFR & GFRAA in patients over 70 years has not been determined. Clinical correlation is essential. Serum or plasma urea nitroge n measurement (mass/volume)on 02-08-2022 Urea nitrogen [Mass/Vol] 8 mg/dL 7-18 [facility] Work Phone: Thin prep Papanicolaou smear with manual screeningon 02-08-2022 Thin prep Papanicolaou smear with manual screening 8 5-15 [facility] Work Phone: CONSTANCE SCREENING W Kenn 11-15 [facility] OPERATIVE PROCEDURESon 11-01 OPERATIVE PROCEDURES [facility] OPERATIVE REPORT NAME ACCOUNT SEX AGE ADMIT DISCHARGE PT MED. RECORD# NUMBER DATE DATE TYPE MILY REYMUNDO [id number] F 56 10/26/21 2 L [id number] ROOM: [facility] DATE OF : 1965 DICTATING PHYSICIAN: Manju Russell DATE OF SURGERY: October 26, 2021 SURGEON: Manju Russell DPM PAPER SORTER: None. ANESTHESIOLOGIST: Jayant Evans CRNA ANESTHETIC: General [...] of 2 REYMUNDO BLANKENSHIP Operative Report REYMUNDO BLANKENHSIP : 1965 approximately a 3 cm linear [...] A postoperative pain prescription was written for [employer], and the patient should take this as directed. Dictated By: Manju Russell DPM 10/26/21 08:51 JOB #: [id number] Transcribed By: isadora 10/26/21 09:49 Electronically signed by: E-SIGN MANJU RUSSELL 11/01/21 07:16 Page 2 of 2 REYMUNDO BLANKENSHIP Operative Report Normal [facility] Final Surgical Pathology Rep corinne 10-31-2021 Final Surgical Pathology Report . 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 COMMENT: [facility] [id number] CLINICAL INFORMATION: LESION PLANTAR NERVE LEFT LOWER [...] Electronically Signed by Pathology Report verified by [facility] Electronically signed by GI TSE Sign out Date: 10/31/2021 15:37 Performing Lab: [facility], [address] [place] [id number] [facility] ([place]) Absolute lymphocyte counton 10-02-2021 Lymphocytes Auto (Unsp spec) [#/Vol] 2.33 10*3/uL 0.83-4.51 [facility] Work Phone: Basophil percentageon 2021 Basophils/100 WBC (Bld) 0.4 % 0-1 [facility] Work Phone: Bilirubin [Mass/Vol] 0.30 mg/dL 0.20-1.00 [facility] Work Phone: Comment on above: For patients on eltr ombopag therapy, use of Dimension [place] TBIL is not recommended. Chloride [Moles/Vol] 95 mmol/L 98-107 [facility] Work Phone: Eosinophils/100 WBC (Bld) 0.3 % 0-5 [facility] Work Phone: Glucose [Mass/Vol] 93 mg/dL 74-106 [facility] Work Phone: Neutrophils (Bld) [#/Vol] 4.7 10*3/uL 2.0-7.7 [facility] Work Phone: Neutrophils/100 WBC (Bld) 62.5 % 47-70 [facility] Work Phone: Potassium [Moles/Vol] 4.0 mmol/L 3.5-5.1 [facility] Work Phone: Protein [Mass/Vol] 7.7 g/dL 6.4-8.2 [facility] Work Phone: Sodium [Moles/Vol] 130 mmol/L 136-145 [facility] Work Phone: WBC (Bld) [#/Vol] 7.5 10*3/uL 4.4-11.0 [facility] Work Phone: [phone] Blood erythrocytes count (nu mber/volume)on 10-02-2021 RBC (Bld) [#/Vol] 4.04 10*6/uL 4.2-5.4 [facility] Work Phone: [phone] Blood hemoglobin measurement (mass/volume)on 10-02-2021 Hemoglobin (Bld) [Mass/Vol] 13.4 g/dL 12.0-15.0 [facility] Work Phone: [phone] Blood lymphocytes/100 leukoc yteson 10-02-2021 Lymphocytes/100 WBC (Bld) 31.2 % 19-41 [facility] Work Phone: Blood monocytes/100 leukocyt eson 10-02-2021 Monocytes/100 WBC (Bld) 5.2 % 0-10 [facility] Work Phone: Blood platelet mean volumeon 10-02-2021 Platelet mean volume (Bld) [Entitic vol] 9.8 fL 6.2-12.0 [facility] Work Phone: Determination of erythrocyte mean corpuscular volume (MCV)on 10-02-2021 MCV (RBC) [Entitic vol] 97.8 fL 81-99 [facility] Work Phone: Hematocrit Auto (Bld) [Volum e fraction]on 10-02-2021 Hematocrit (Bld) [Volume fraction] 39.5 % 37-47 [facility] Work Phone: Laboratory - Chemistry and C hemistry - challengeon 10-02-2021 ALP [Catalytic activity/Vol] 92 U/L 45-117 [facility] Work Phone: ALT [Catalytic activity/Vol] 40 U/L 13-56 [facility] Work Phone: CO2 [Moles/Vol] 27.0 mmol/L 21.0-32.0 [facility] Work Phone: Globulin (S) [Mass/Vol] 3.7 g/dL 2.2-4.2 [facility] Work Phone: Urea nitrogen/Creatinine [Mass ratio] 15.1 mg/mg 10-20 [facility] Work Phone: Laboratory - Hematology and Cell countson 10-02-2021 Erythrocyte distribution width (RBC) [Entitic vol] 43.2 fL 35.1-43.9 [facility] Work Phone: Erythrocyte distribution width (RBC) [Ratio] 11.9 % 11.6-14.6 [facility] Work Phone: Immature granulocytes/100 WBC (Bld) 0.400 % 0.0-0.9 [facility] Work Phone: Comment on above: IG% - Immature Granu locytes (promyelocytes, myelocytes and metamyelocytes) > 1% indicates that a LEFT SHIFT is Present. MCH (RBC) [Entitic mass] 33.2 pg 27.0-32.0 [facility] Work Phone: Nucleated RBC/100 WBC (Bld) [Ratio] 0 % 0-5 [facility] Work Phone: MCHC Auto (RBC) [Mass/Vol]on 10-02-2021 MCHC (RBC) [Mass/Vol] 33.9 g/dL 32-36 [facility] Work Phone: No Panel Informationon 10-02 Estimated GFR (MDRD) Amer 118 mL/min >60 [facility] Work Phone: Comment on above: GFR Calc Estimated GFR (MDRD) Non-Af Amer 97 mL/min >60 [facility] Work Phone: Comment on above: Non- GFR Calc Platelets bldon 10-02-2021 Platelets (Bld) [#/Vol] 301 10*3/uL 150-450 [facility] Work Phone: Serum or plasma albumin marco urement (mass/volume)on 10-02-2021 Albumin [Mass/Vol] 4.0 g/dL 3.2-5.0 [facility] Work Phone: Serum or plasma albumin/glob ulin mass ratioon 10-02-2021 Albumin/Globulin [Mass ratio] 1.1 {ratio} 0.9-2.4 [facility] Work Phone: Serum or plasma calcium marco urement (mass/volume)on 10-02-2021 Calcium [Mass/Vol] 9.2 mg/dL 8.5-10.1 [facility] Work Phone: Serum or plasma creatinine m easurement (mass/volume)on 10-02-2021 Creatinine [Mass/Vol] 0.66 mg/dL 0.55-1.02 [facility] Work Phone: Comment on above: The validity of the calculated GFR & GFRAA in patients over 70 years has not been determined. Clinical correlation is essential. Serum or plasma urea nitroge n measurement (mass/volume)on 10-02-2021 Urea nitrogen [Mass/Vol] 10 mg/dL 7-18 [facility] Work Phone: Thin prep Papanicolaou smear with manual screeningon 10-02-2021 Thin prep Papanicolaou smear with manual screening 32 U/L 15-37 [facility] Work Phone: Thin prep Papanicolaou smear with manual screening 8 5-15 [facility] Work Phone: FOOT COMPLETE LTon 1 FOOT COMPLETE LT [place] [address] Patient: REYMUNDO BLANKENSHIP Phone#: : 1965 Age: 55 Gender: F Pt. Type: Out Account: [id number] Location: [facility] Ordering: MANJU RUSSELL Exam Date: 12/11/2020/9:05 Family Phys: Charge Code: 654479 Physician: [place] Order #: [id number] DLP Dose#: PROCEDURE: X-RAY FOOT LT COMPLETE MIN 3 VIEWS COMPARISON: [facility], XR, FOOT LT COMPLETE, 11/07/2020, 19:39. [...] Guillen MD on 12/11/2020 at 16:48 Normal [facility] EMERGENCY REPORTon 1 EMERGENCY REPORT [facility] EMERGENCY ROOM REPORT NAME ACCOUNT SEX AGE ADMIT DISCHARGE PT MED. RECORD# NUMBER DATE DATE TYPE MILY REYMUNDO [id number] F 55 11/07/20 11/07/20 3 L [id number] ROOM: ER DATE OF : 1965 DICTATING [...] to erythromycin. PCP is Dr. Toney from [place]. REVIEW OF SYSTEMS: Denies any chest pain, [...] Ciro Rooney DO 11/07/20 19:39 JOB #: [id number] Transcribed By: michelle 11/08/20 15:20 Electronically signed by: E-Sign: Dr. Ciro Rooney D.O. 11/11/20 04:05 Page 2 of 2 REYMUNDO BLANKENSHIP Emergency Room Report Normal [facility] EMERGENCY REPORT [facility] EMERGENCY ROOM REPORT NAME ACCOUNT SEX AGE ADMIT DISCHARGE PT MED. RECORD# NUMBER DATE DATE TYPE REYMUNDO BLANKENSHIP [id number] F 55 11/07/20 11/07/20 3 L [id number] ROOM: ER DATE OF : 1965 DICTATING [...] use the crutches. I referred her to [facility] for followup if her symptoms do not improve. She does seen Dr. Héctor Toney at [address] [facility] [facility] [address], phone [phone]. She can follow up with her family [...] Ciro Rooney DO 11/07/20 20:49 JOB #: [id number] Transcribed By: michelle 11/08/20 16:24 Electronically signed by: E-Sign: Dr. Ciro Rooney D.O. 11/11/20 04:01 Page 1 of 1 MILY REYMUNDO Walker Emergency Room Report [facility] ANKLE COMPLETE LTon 11-08-19 ANKLE COMPLETE LT [place] [address] Patient: REYMUNDO BLANKENSHIP. Phone#: : 1965 Age: 55 Gender: F Pt. Type: ER Account: [id number] Location: 052 Ordering: CIRO ROONEY Exam Date: 11/07/2020/19:37 Family Phys: Charge Code: 707235 Physician: [place] Order #: [id number] DLP Dose#: PROCEDURE: X-RAY ANKLE COMPLETE LT [...] Napier MD on 11/08/2020 at 8:44 Normal [facility] FOOT COMPLETE LTon FOOT COMPLETE LT [address] [address] Patient: REYMUNDO BLANKENSHIP Phone#: : 1965 Age: 55 Gender: F Pt. Type: ER Account: [id number] Location: 052 Ordering: CIRO ROONEY Exam Date: 11/07/2020/19:39 Family Phys: Charge Code: 530346 Physician: [place] Order #: [id number] DLP Dose#: PROCEDURE: X-RAY FOOT LT COMPLETE [...] Napier MD on 11/08/2020 at 8:50 Normal [facility] Vital Signs Date Time Vital Sign Value Performing Clinician Faci lity 11-04-2024 08:49-0400 Body height 154.94 cm Nathanael Frazier MD Work Phone: [facility] 11-04-2024 08:49-0400 Body mass index (BMI) [Ratio] 28.9 kg/m2 Nathanael Frazier MD Work Phone: [facility] 11-04-2024 08:49-0400 Body temperature 98 [degF] Nathanael Frazier MD Work Phone: [facility] 11-04-2024 08:49-0400 Body weight 69.39 kg Nathanael Frazier MD Work Phone: [facility] 11-04-2024 08:49-0400 Diastolic blood pressure 75 mm[Hg] Nathanael Frazier MD Work Phone: [facility] 11-04-2024 08:49-0400 Heart rate 63 /min Nathanael Frazier MD Work Phone: [facility] 11-04-2024 08:49-0400 Respiratory rate 16 /min Nathanael Frazier MD Work Phone: [facility] 11-04-2024 08:49-0400 SaO2% (BldA) [Mass fraction] 96 % Nathanael Frazier MD Work Phone: [facility] 11-04-2024 08:49-0400 Systolic blood pressure 114 mm[Hg] Nathanael Frazier MD Work Phone: [facility] 03-05-2024 15:21-0500 Body height 154.2 cm Jade Cinebar RETREAD MOLD OPERATOR.STRUCTURED CABLING TECHNICIAN Work Phone: [facility] 03-05-2024 15:21-0500 Body mass index (BMI) [Ratio] 29.19 kg/m2 Jade Sourav RETREAD MOLD OPERATOR.STRUCTURED CABLING TECHNICIAN Work Phone: [facility] 03-05-2024 15:21-0500 Body weight 69.4 kg Jade Cinebar RETREAD MOLD OPERATOR.STRUCTURED CABLING TECHNICIAN Work Phone: [facility] 12-09-2023 10:29-0400 Body height 154.9 cm Reny Markham APRN - STRUCTURED CABLING TECHNICIAN Work Phone: [facility] 12-09-2023 10:29-0400 Body mass index (BMI) [Ratio] 27.78 kg/m2 Reny Markham APRN - STRUCTURED CABLING TECHNICIAN Work Phone: [facility] 12-09-2023 10:29-0400 Body temperature 97.7 [degF] Reny Markham APRN - STRUCTURED CABLING TECHNICIAN Work Phone: [facility] 12-09-2023 10:29-0400 Body weight 66.68 kg Reny Fletcher RETREAD MOLD OPERATOR - STRUCTURED CABLING TECHNICIAN Work Phone: [facility] 12-09-2023 10:29-0400 Diastolic blood pressure 59 mm[Hg] Renymarsha Khanjose CAIN - STRUCTURED CABLING TECHNICIAN Work Phone: [facility] 12-09-2023 10:29-0400 Heart rate 61 /min Renymarsha Khanw RETREAD MOLD OPERATOR - STRUCTURED CABLING TECHNICIAN Work Phone: [facility] 12-09-2023 10:29-0400 Respiratory rate 12 /min Reny Khanw RETREAD MOLD OPERATOR - STRUCTURED CABLING TECHNICIAN Work Phone: [facility] 12-09-2023 10:29-0400 Systolic blood pressure 102 mm[Hg] Renysarah Khanw RETREAD MOLD OPERATOR - STRUCTURED CABLING TECHNICIAN Work Phone: [facility] 12-09-2023 09:58-0400 Body height 156.2 cm Reny Fletcher RETREAD MOLD OPERATOR - STRUCTURED CABLING TECHNICIAN Work Phone: [facility] 12-09-2023 09:58-0400 Body mass index (BMI) [Ratio] 28.63 kg/m2 Reny Khanw RETREAD MOLD OPERATOR - STRUCTURED CABLING TECHNICIAN Work Phone: [facility] 12-09-2023 09:58-0400 Body weight 69.85 kg Reny Khanw RETREAD MOLD OPERATOR - STRUCTURED CABLING TECHNICIAN Work Phone: [facility] 11-24-2023 11:36-0400 Body height 154.9 cm Vernell Florentin RETREAD MOLD OPERATOR.STRUCTURED CABLING TECHNICIAN Work Phone: [facility] 11-24-2023 11:36-0400 Body mass index (BMI) [Ratio] 27.81 kg/m2 Vernell Florentin RETREAD MOLD OPERATOR.STRUCTURED CABLING TECHNICIAN Work Phone: [facility] 11-24-2023 11:36-0400 Body temperature 98.1 [degF] Vernell Florentin RETREAD MOLD OPERATOR.STRUCTURED CABLING TECHNICIAN Work Phone: [facility] 11-24-2023 11:36-0400 Body weight 66.77 kg Vernell Florentin RETREAD MOLD OPERATOR.STRUCTURED CABLING TECHNICIAN Work Phone: [facility] 11-24-2023 11:36-0400 Diastolic blood pressure 72 mm[Hg] Vernell Florentin RETREAD MOLD OPERATOR.STRUCTURED CABLING TECHNICIAN Work Phone: [facility] 11-24-2023 11:36-0400 Heart rate 78 /min Vernell Florentin RETREAD MOLD OPERATOR.STRUCTURED CABLING TECHNICIAN Work Phone: [facility] 11-24-2023 11:36-0400 SaO2% (BldA) [Mass fraction] 98 % Vernell Florentin RETREAD MOLD OPERATOR.STRUCTURED CABLING TECHNICIAN Work Phone: [facility] 11-24-2023 11:36-0400 Systolic blood pressure 118 mm[Hg] Vernell Florentin RETREAD MOLD OPERATOR.STRUCTURED CABLING TECHNICIAN Work Phone: [facility] 02-20-2023 15:52-0400 Body height 154.9 cm Jade Cinebar RETREAD MOLD OPERATOR.STRUCTURED CABLING TECHNICIAN Work Phone: [facility] 02-20-2023 15:52-0400 Body weight 62.14 kg Jade Sourav RETREAD MOLD OPERATOR.STRUCTURED CABLING TECHNICIAN Work Phone: [facility] 02-20-2023 15:52-0400 Diastolic blood pressure 68 mm[Hg] Jade Cinebar RETREAD MOLD OPERATOR.STRUCTURED CABLING TECHNICIAN Work Phone: [facility] 02-20-2023 15:52-0400 Systolic blood pressure 112 mm[Hg] Jade Sourav RETREAD MOLD OPERATOR.STRUCTURED CABLING TECHNICIAN Work Phone: [facility] 12-06-2022 14:53-0400 Body height 157.5 cm Reny Markham APRN - STRUCTURED CABLING TECHNICIAN Work Phone: [facility] 12-06-2022 14:53-0400 Body mass index (BMI) [Ratio] 28.17 kg/m2 Reny Markham APRN - STRUCTURED CABLING TECHNICIAN Work Phone: [facility] 12-06-2022 14:53-0400 Body temperature 97.7 [degF] Reny Markham APRN - STRUCTURED CABLING TECHNICIAN Work Phone: [facility] 12-06-2022 14:53-0400 Body weight 69.85 kg Reny Markham RETREAD MOLD OPERATOR - STRUCTURED CABLING TECHNICIAN Work Phone: [facility] 12-06-2022 14:53-0400 Diastolic blood pressure 69 mm[Hg] Reny Markham RETREAD MOLD OPERATOR - STRUCTURED CABLING TECHNICIAN Work Phone: [facility] 12-06-2022 14:53-0400 Heart rate 82 /min Reny Markham RETREAD MOLD OPERATOR - STRUCTURED CABLING TECHNICIAN Work Phone: [facility] 12-06-2022 14:53-0400 Respiratory rate 12 /min Reny Markham RETREAD MOLD OPERATOR - STRUCTURED CABLING TECHNICIAN Work Phone: [facility] 12-06-2022 14:53-0400 Systolic blood pressure 122 mm[Hg] Reny Markham RETREAD MOLD OPERATOR - STRUCTURED CABLING TECHNICIAN Work Phone: [facility] 06-05-2022 13:20-0500 Body height 157.5 cm Anirudh Avalos MD Work Phone: [facility] 06-05-2022 13:20-0500 Body mass index (BMI) [Ratio] 27.62 kg/m2 Anirudh Avalos MD Work Phone: [facility] 06-05-2022 13:20-0500 Body temperature 97.3 [degF] Anirudh Avalos MD Work Phone: [facility] 06-05-2022 13:20-0500 Body weight 68.49 kg Anirudh Avalos MD Work Phone: [facility] 05-16-2022 15:18-0500 Body weight 70.67 kg Jade Sourav RETREAD MOLD OPERATOR.STRUCTURED CABLING TECHNICIAN Work Phone: [facility] 05-16-2022 15:18-0500 Diastolic blood pressure 66 mm[Hg] Jade Cinebar RETREAD MOLD OPERATOR.STRUCTURED CABLING TECHNICIAN Work Phone: [facility] 05-16-2022 15:18-0500 Systolic blood pressure 110 mm[Hg] Jade Cinebar RETREAD MOLD OPERATOR.STRUCTURED CABLING TECHNICIAN Work Phone: [facility] 11-15-2021 07:11-0400 Body height 154.9 cm Jade Sourav RETREAD MOLD OPERATOR.STRUCTURED CABLING TECHNICIAN Work Phone: [facility] 11-15-2021 07:11-0400 Body weight 68.04 kg Jade Cinebar RETREAD MOLD OPERATOR.STRUCTURED CABLING TECHNICIAN Work Phone: [facility] 11-15-2021 07:11-0400 Diastolic blood pressure 64 mm[Hg] Jade Sourav RETREAD MOLD OPERATOR.STRUCTURED CABLING TECHNICIAN Work Phone: [facility] 11-15-2021 07:11-0400 Systolic blood pressure 106 mm[Hg] Jade Cinebar RETREAD MOLD OPERATOR.STRUCTURED CABLING TECHNICIAN Work Phone: [facility] Encounters Encounter Date Encounter Type Care Provider Facility Start: 12[facility]10[facility] Start: 11-11-2024 ambulatory Ranjith Kalebdora Facilit y:[facility] Start: 11-11-[address] Ranjith Lee MD -Outpatient Bone Densitometry Work Phone: Start: 11-06-2024 End: 11-06-[address] Ranjith Lee MD -Laboratory Work Phone: Start: 11-06-2024 End: 11-06-2024 ambulatory Ranjitheileen Lee Facility:[facility] Start: 11-04-2024 End: 11-04-[address] Ranjith Lee MD -[facility] Work Phone: Start: 11-04-2024 End: 11-04-2024 ambulatory Nathanael Frazier MD Work Phone: -[facility] Start: 10-01-2024 End: 10-01-2024 ambulatory Nathanael Frazier MD Work Phone: [facility] Work Phone: Start: 10-01-2024 End: 10-01-[address] Mary Ann Vazquez MD -Laboratory [facility] Start: 10-01-2024 End: 10-01-2024 ambulatory Mary Ann Vazquez Facility:[facility] Start: 07-20-2024 ambulatory Arron Soto Facility:[facility] Start: 07-20-2024 Non-patient / Non-visit Dr. Nikolas [facility] Start: 07-20-[address] Nathaneal Frazier MD -Formerly [facility] Work Phone: Start: 07-20-2024 ambulatory Nathanael Frazier Facility:[facility] Start: 04-10-2024 End: 04-10-2024 ambulatory Mary Ann Vazquez Facility:[facility] Start: 03-05-2024 End: 03-05-2024 ambulatory HÉCTOR Rascon [place] Facility:[facility] Start: 03-05-2024 End: 03-05-2024 Patient encounter procedure Jade Ferguson APRN.CNP Work Phone: OB/Gynecology Comment on above: Encounter for gyneco logical examination (general) (routine) without abnormal findings (Primary Dx); Encounter for screening mammogram for breast cancer Start: 03-05-2024 End: 03-05-2024 Patient encounter status Jade Ferguson APRN.CNP Work Phone: [facility] Start: 02-23-2024 End: 02-23-2024 ambulatory Chase Guadarrama Facility:[facility] Start: 01-05-2024 ambulatory Halle Perea Facility:[facility] Start: 12-09-2023 End: 12-09-2023 Prevent med student success counselor&/risk factor redj spx 15 min Reny Randle CNP Work Phone: [facility] [place] Comment on above: Family history of br east cancer (Primary Dx); Family history of pancreatic cancer; Encounter for screening mammogram for breast cancer; Family history of prostate cancer; Family history of melanoma; Family history of colon cancer; Encounter for examination and observation for other specified reasons Start: 12-09-2023 End: 12-09-2023 Subsequent hospital visit by physician Reny Randle CNP Work Phone: [facility] [place] Comment on above: Encounter for screen ing mammogram for breast cancer Start: 12-09-2023 End: 12-09-2023 ambulatory RENY [facility] Start: 11-24-2023 End: 11-24-2023 ambulatory [facility] Facility:[facility] Start: 11-24-2023 End: 11-24-2023 Patient encounter procedure Vernell Vanegas RETREAD MOLD OPERATOR.STRUCTURED CABLING TECHNICIAN Work Phone: General Surgery Comment on above: History of colonic p olyps (Primary Dx); Encounter for screening for malignant neoplasm of colon Start: 10-21-2023 Refill Jade Cinebar RETREAD MOLD OPERATOR.STRUCTURED CABLING TECHNICIAN Work Phone: OB/Gynecology Comment on above: Refill Request Start: 07-05-2023 End: 07-05-2023 ambulatory [facility] Work Phone: Start: 07-05-2023 End: 07-05-2023 Patient encounter procedure [facility] Work Phone: Start: 06-25-2023 End: 06-25-2023 Emergency department patient visit LAURA ALFONSO [facility] Start: 06-17-2023 End: 06-17-2023 [facility] Work Phone: Start: 06-17-2023 End: 06-17-2023 Patient encounter procedure [facility] Start: 02-20-2023 End: 02-20-2023 Patient encounter procedure Jade Cinebar RETREAD MOLD OPERATOR.STRUCTURED CABLING TECHNICIAN Work Phone: OB/Gynecology Comment on above: Encounter for gyneco logical examination (general) (routine) without abnormal findings (Primary Dx) Start: 02-20-2023 End: 02-20-2023 Patient encounter status Jade Cinebar RETREAD MOLD OPERATOR.STRUCTURED CABLING TECHNICIAN Work Phone: [facility] Start: 01-23-2023 End: 01-23-2023 ambulatory [facility] Work Phone: Start: 01-23-2023 End: 01-23-2023 Patient encounter procedure [facility] Work Phone: Start: 01-14-2023 Refill Jade Cinebar RETREAD MOLD OPERATOR.STRUCTURED CABLING TECHNICIAN Work Phone: OB/Gynecology Comment on above: Refill Request; Refi ll Request Start: 12-06-2022 End: 12-06-2022 Office outpatient visit 15 minutes Reny Randle CNP Work Phone: [facility] [place] Comment on above: Family history of br east cancer (Primary Dx); Encounter for screening mammogram for breast cancer; Breast pain; Family history of pancreatic cancer; Rheumatoid arthritis, involving unspecified site, unspecified whether rheumatoid factor present (HCC) Start: 12-06-2022 End: 12-06-2022 Subsequent hospital visit by physician Reny Randle CNP Work Phone: [facility] Comment on above: Mammary duct ectasia of left breast Start: 11-12-2022 End: 11-12-2022 Subsequent hospital visit by physician Reny Randle CNP Work Phone: [facility] Comment on above: Dense breasts; Family history of breast cancer Start: 11-02-2022 End: 11-02-2022 ambulatory [facility] Work Phone: Start: 11-02-2022 End: 11-02-2022 [facility] Work [facility]: Start: 09-09-2022 End: 09-09-2022 Patient encounter procedure [facility] Start: 08-28-2022 End: 08-28-2022 ambulatory DO Carmen Snow Work Phone: [facility] Work Phone: Start: 08-28-2022 End: 08-28-2022 Patient encounter procedure DO Carmen Snow Work Phone: [facility] Start: 07-11-2022 Registered Referred DO Carmen Snow Work Phone: [facility] Start: 07-09-2022 End: 07-09-2022 ambulatory DO Carmen Snow Work Phone: [facility] Work Phone: Start: 07-09-2022 End: 07-09-2022 Patient encounter procedure DO Carmen Marinnger Work Phone: [facility] Start: 06-05-2022 End: 06-05-2022 Office outpatient new 30 minutes Anirudh Avalos MD Work Phone: [facility] Comment on above: Mammary duct ectasia of left breast (Primary Dx); Family history of pancreatic cancer; Family history of melanoma; Dense breasts; Mastodynia of left breast; Costochondritis Start: 05-28-2022 ambulatory Lacy Merino Work Phone: Mammography Comment on above: Mammogram Abnormalit y Start: 05-28-2022 Patient encounter procedure Lacy Negron MD Work Phone: [facility] Start: 05-24-2022 Telephone encounter Jade herzog RETREAD MOLD OPERATOR.STRUCTURED CABLING TECHNICIAN Work Phone: OB/Gynecology Comment on above: Mammogram Abnormalit y Start: 05-23-2022 Non-patient / Non-visit DO Larissa lermakarthik Snow Work Phone: [facility] Start: 05-23-2022 End: 05-23-2022 Patient encounter procedure DO Carmen Edy Work Phone: [facility] Start: 05-16-2022 End: 05-16-2022 Patient encounter procedure Jade Ferguson RETREAD MOLD OPERATOR.STRUCTURED CABLING TECHNICIAN Work Phone: OB/Gynecology Comment on above: Breast pain in femal e (Primary Dx) Start: 04-23-2022 End: 04-23-2022 ambulatory [facility] Work Phone: Start: 04-23-2022 End: 04-23-2022 Patient encounter procedure [facility] Start: 02-08-2022 End: 10-14-2022 ambulatory [facility] Work Phone: Start: 02-08-2022 End: 02-08-2022 Patient encounter procedure [facility] Start: 01-31-2022 Refill Jade Ferguson APRN.STRUCTURED CABLING TECHNICIAN Work Phone: OB/Gynecology Comment on above: Refill Request Start: 11-15-2021 Documentation procedure Mammog antonietta Coordinator [facility] Start: 11-15-2021 Letter encounter Mammography Coordinator [facility] Department Start: 11-15-2021 End: 11-15-2021 Subsequent hospital visit by physician Screen Mammo [facility] Comment on above: Encounter for screen ing mammogram for breast cancer [Z12.31] Start: 11-15-2021 End: 11-15-2021 Patient encounter procedure Jade Ferguson APRN.STRUCTURED CABLING TECHNICIAN Work Phone: OB/Gynecology Comment on above: Encounter for gyneco logical examination (general) (routine) without abnormal findings (Primary Dx); Encounter for screening mammogram for malignant neoplasm of breast Start: 11-15-2021 End: 11-15-2021 Patient encounter status Jade Ferguson APRN.STRUCTURED CABLING TECHNICIAN Work Phone: OB/Gynecology Start: 10-26-2021 End: 10-26-2021 ambulatory [facility] Start: 10-02-2021 End: 10-02-2021 Patient encounter procedure [facility] Start: 12-11-2020 End: 12-11-2020 ambulatory [facility] Start: 11-07-2020 End: 11-07-2020 [facility] Procedures Date Procedure Procedure Detail Performing Clinician Start: 11-06-2024 Folic acid measurement, RBC Nathanael Frazier MD Work Phone: Start: 07-20-2024 CT angiography of coronary arteries Nathanael Frazier MD Work Phone: Start: 12-09-2023 End: 12-09-2023 Mammography Reny Markham APR N - STRUCTURED CABLING TECHNICIAN Work Phone: Start: 12-06-2022 Us breast uni real time with image limited Reny Markham RETREAD MOLD OPERATOR - STRUCTURED CABLING TECHNICIAN Work Phone: Start: 12-06-2022 End: 12-06-2022 Mammography Reny Markham TRELL N - STRUCTURED CABLING TECHNICIAN Work Phone: Start: 11-12-2022 MR Breast - bilateral WO and W contrast IV Reny Markham PATRIZIA - STRUCTURED CABLING TECHNICIAN Work Phone: Start: 05-23-2022 Mammography DO Carmen Snow Work Phone: Start: 05-23-2022 Ultrasonography of breast DO Carmen rod Work Phone: Start: 11-15-2021 CONSTANCE SCREENING W CARLIN Jade Ferguson APRN.STRUCTURED CABLING TECHNICIAN Work Phone: Start: 11-15-2021 Mammography Jade Ferguson APRN.STRUCTURED CABLING TECHNICIAN Work Phone: Start: 11-10-2018 Colonoscopy Jade Ferguson RETREAD MOLD OPERATOR.STRUCTURED CABLING TECHNICIAN Work Phone: Start: 10-08-2011 Lipid 1996 panel - Serum or Plasma Jade Ferguson APRN.STRUCTURED CABLING TECHNICIAN Work Phone: H/O: hysterectomy H/O: hysterectomy History of cholecystectomy Hx of cholecys tectomy Plan of Treatment Date Care Activity Detail Author Start: 01-16-2039 RSV Vaccine (1 - 1-dose 75+ series) RSV Vaccine (1 - 1-dose 75+ series) [facility] Start: 04-26-2029 DTaP/Tdap/Td Vaccines (3 - Td or Tdap) DTaP/Tdap/Td Vaccines (3 - Td or Tdap) [facility] Start: 04-26-2029 Urine microalbumin profile DTaP,Tdap,Td Vaccine (3 - Td or Tdap) [facility] Start: 11-10-2028 Screening for malignant neoplasm of colon [facility] Start: 03-08-2025 End: 03-08-2025 Patient encounter procedure 03/08/2025 3:30 PM EST Office Visit OB/Gynecology [address] [place] [address] Jade Ferguson APRN.STRUCTURED CABLING TECHNICIAN [address] [place] [address] Annual OB/Gynecology Comment on above: Annual Start: 12-13-2024 Electroencephalogram [facility] Start: 12-10-2024 End: 12-10-2024 Patient encounter procedure 12/10/2024 10:30 AM EDT Office Visit [facility] [address] [place] [phone] Reny Markham APRN - STRUCTURED CABLING TECHNICIAN [address] [place] [address] [facility] Start: 12-10-2024 End: 12-10-2024 Patient encounter procedure 12/10/2024 9:20 AM EDT Appointment [facility] [address] [place] [phone] [facility] Start: 12-08-2024 End: 04-04-2025 DBT Breast - bilateral screening CONSTANCE SCREENING W CARLIN Radiology Routine Encounter for screening mammogram for breast cancer Expected: 12/08/2024 (Approximate), Expires: 04/04/2025 [facility] Work Phone: Comment on above: Expected: 12/08/2024 (Approximate), Expi res: 04/04/2025 Start: 12-08-2024 Screening for malignant neoplasm of breast [facility] Start: 11-11-2024 Dual energy X-ray absorptiometry Dexa Bone Density Study [facility] Start: 11-11-2024 DXA Bone [Mass/Area] Bone density [facility] Start: 04-08-2024 Urine microalbumin profile [facility] Start: 02-23-2024 End: 02-23-2024 Patient encounter procedure 02/23/2024 9:00 AM EDT Office Visit OB/Gynecology [address] [address] Jade Ferguson APRN.STRUCTURED CABLING TECHNICIAN [address] [place] [address] ANNUAL EXAM OB/Gynecology Comment on above: ANNUAL EXAM Start: 2024 RSV Immunization aged 60 or older (1 - 1-dose 60+ series) RSV Immunization aged 60 or older (1 - 1-dose 60+ series) [facility] Start: 12-28-2023 Covid-19 Vaccine () Covid-19 Vaccine () [facility] Start: 12-28-2023 Influenza vaccination [facility] Start: 12-26-2023 End: 02-06-2024 DBT Breast - bilateral screening Bilateral screening mammogram with tomosynthesis Imaging Routine Encounter for screening mammogram for breast cancer Expected: 12/26/2023 (Approximate), Expires: 02/06/2024 [facility] Work Phone: Comment on above: Expected: 12/26/2023 (Approximate), Expi res: 02/06/2024 Start: 12-09-2023 End: 12-09-2023 Patient encounter procedure [facility] Start: 12-07-2023 Screening for malignant neoplasm of breast [facility] Start: 11-24-2023 End: 11-24-2023 Patient encounter procedure 11/24/2023 11:45 AM EDT Office Visit General Surgery [address] [place] [address] Meena Ascencio MD [address] [place] [phone] 5 year colonoscopy consult General Surgery Comment on above: 5 year colonoscopy consult Start: 11-11-2023 Colonoscopy COLONOSCOPY [facility] Start: 11-11-2023 COLORECTAL CANCER SCREENING COLORECTAL CANCER SCREENING [facility] Start: 11-11-2023 Screening for malignant neoplasm of colon [facility] Start: 04-28-2023 Behavioral Health Screening Behavioral Health Screening [facility] Start: 12-27-2022 Covid-19 Vaccine () Covid-19 Vaccine () [facility] Start: 12-27-2022 Influenza vaccination Influenza Vaccine (#1) [employer] [employer] Start: 12-06-2022 End: 12-06-2022 Patient encounter procedure [facility] Start: 11-15-2022 Mammography [facility] Start: 06-07-2022 End: 06-07-2022 Patient encounter procedure [facility] Start: 06-05-2022 End: 08-04-2023 US Breast - left limited Left breast US limited Imaging Routine Dense breasts Mastodynia of left breast Mammary duct ectasia of left breast Expected: 06/05/2022 (Approximate), Expires: 08/04/2023 [facility] [employer] Work Phone: Comment on above: Expected: 06/05/2022 (Approximate), Expi res: 08/04/2023 Start: 04-28-2022 DEPRESSION ASSESSMENT DEPRESSION ASSESSMENT [facility] Start: 04-02-2022 HPV TESTING HPV TESTING [facility] Start: 04-02-2022 PAP TESTING PAP TESTING [facility] Start: 04-02-2022 Screening for malignant neoplasm of cervix Cervical Cancer Screening [facility] Start: 12-27-2021 Influenza vaccination [facility] Start: 04-28-2021 DEPRESSION ASSESSMENT DEPRESSION ASSESSMENT [facility] Start: 12-18-2020 COVID-19 VACCINE (4 - Booster for Moderna series) COVID-19 VACCINE (4 - Booster for Moderna series) [facility] Start: 10-13-2020 COVID-19 VACCINE (4 - Booster for Moderna series) COVID-19 VACCINE (4 - Booster for Moderna series) [facility] Start: 10-13-2020 Covid-19 Vaccine (4 - Moderna series) Covid-19 Vaccine (4 - Moderna series) [facility] Start: 10-07-2016 Lipid 1996 panel - Serum or Plasma Lipid Screening [facility] Start: 10-07-2016 Lipid panel Lipid Screening [facility] Start: 10-07-2016 LIPID SCREEN LIPID SCREEN [facility] Start: 08-26-2016 DIABETES SCREEN DIABETES SCREEN [facility] Start: 08-26-2016 Diabetes Screening Diabetes Screening [facility] Start: 01-16-2014 SHINGRIX VACCINE (1 of 2) SHINGRIX VACCINE (1 of 2) [facility] Start: 01-16-2014 Zoster Vaccines (1 of 2) Zoster Vaccines (1 of 2) [facility] Start: 01-16-2009 COLOGUARD (FIT-DNA) COLOGUARD (FIT-DNA) [facility] Start: 01-16-[address] COLONOGRAPHY [facility] Start: 01-16-2009 FECAL OCCULT BLOOD FECAL OCCULT BLOOD [facility] Start: 01-16-2009 Screening for malignant neoplasm of colon [facility] Start: 01-16-2009 SIGMOIDOSCOPY SIGMOIDOSCOPY [facility] Start: 2004 Screening for malignant neoplasm of breast Mammogram [facility] Start: 01-16-1994 Screening for malignant neoplasm of cervix [facility] Start: 01-16-1985 Screening for malignant neoplasm of cervix Pap Smear [facility] Start: 01-16-1983 Hepatitis B Vaccines (1 of 3 - 19+ 3-dose series) Hepatitis B Vaccines (1 of 3 - 19+ 3-dose series) [facility] Start: 01-16-1982 Depression Screening Depression Screening [facility] Start: 01-16-1982 Diabetes mellitus screening Diabetes Screening [facility] Start: 01-16-1982 HEPATITIS C SCREENING HEPATITIS C SCREENING [facility] Start: 01-16-1982 Hepatitis C screening Hepatitis C Screening [facility] Start: 01-16-1982 HIV SCREENING HIV SCREENING [facility] Start: 01-16-1982 HIV screening HIV Screening [facility] Start: 1976 Adult depression screening assessment DEPRESSION SCREENING [facility] Start: 01-16-1965 MMR Vaccines (1 of 1 - Standard series) MMR Vaccines (1 of 1 - Standard series) [facility] Start: 1964 HEPATITIS B (1 of 3 - 3-dose series) HEPATITIS B (1 of 3 - 3-dose series) [facility] Start: 1964 Hepatitis B Vaccine (1 of 3 - 3-dose series) Hepatitis B Vaccine (1 of 3 - 3-dose series) [facility] Start: 1964 Hepatitis B Vaccines (1 of 3 - 3-dose series) Hepatitis B Vaccines (1 of 3 - 3-dose series) [facility] Start: 1964 HIV screening HIV Screening [facility] Start: 1964 Lipid panel Lipid Panel [facility] Start: 1964 Screening for malignant neoplasm of colon [facility] Cyclic citrullinated peptide IgG Ab [Units/volume] in Serum or Plasma [facility] Work Phone: End: 06-15-2023 Diagnostic mammography computer-aided detcj uni CONSTANCE DIAGNOSTIC LT Radiology Routine Breast pain in female 1 Occurrences starting 05/16/2022 until 06/15/2023 [facility] Work Phone: Comment on above: 1 Occurrences starting 05/16/2022 until 06/15/2023 End: 06-27-2023 Diagnostic mammography computer-aided detcj uni CONSTANCE DIAGNOSTIC LT Radiology Routine Abnormal finding on radiological examination of breast 1 Occurrences starting 05/28/2022 until 06/27/2023 [facility] Work Phone: Comment on above: 1 Occurrences starting 05/28/2022 until 06/27/2023 DXA Bone [Mass/Area] Bone density [facility] Electroencephalogram [facility] HLA-B27 [Presence] b y SUZY with probe detection [facility] Work Phone: End: 12-15-2022 CONSTANCE SCREENING W CARLIN CONSTANCE SCREENING W CARLIN Radiology Routine Encounter for screening mammogram for malignant neoplasm of breast 1 Occurrences starting 11/15/2021 until 12/15/2022 [facility] Work Phone: Comment on above: 1 Occurrences starting 11/15/2021 until 12/15/2022 MR Brain WO and W contrast IV [facility] End: 11-23-2024 Screening colonoscopy COLONOSCOPY SCREENING Endoscopy Routine History of colonic polyps Encounter for screening for malignant neoplasm of colon 1 Occurrences starting 11/24/2023 until 11/23/2024 [facility] Work Phone: Comment on above: 1 Occurrences starting 11/24/2023 until 11/23/2024 End: 06-15-2023 Us breast uni real time with image limited US BREAST LTD LT Radiology Routine Breast pain in female 1 Occurrences starting 05/16/2022 until 06/15/2023 [facility] Work Phone: Comment on above: 1 Occurrences starting 05/16/2022 until 06/15/2023 End: 06-27-2023 Us breast uni real time with image limited US BREAST LTD LT Radiology Routine Abnormal finding on radiological examination of breast 1 Occurrences starting 05/28/2022 until 06/27/2023 [facility] Work Phone: Comment on above: 1 Occurrences starting 05/28/2022 until 06/27/2023 Vitamin B6 measurement [facility] Immunizations Immunization Date Immunization Notes Care Provider Nawaf erynamore 08-18-2020 COVID-19 vaccine, fu ll dose (MODERNA) Jade Cinebar RETREAD MOLD OPERATOR.STRUCTURED CABLING TECHNICIAN Work Phone: [facility] Work Phone: 08-12-2020 COVID-19 vaccine, fu ll dose (MODERNA) Jade Cinebar RETREAD MOLD OPERATOR.[facility] Work Phone: [facility] Work Phone: 07-15-2020 COVID-19 vaccine, fu ll dose (MODERNA) Jade Sourav RETREAD MOLD OPERATOR.[facility] Work Phone: [facility] Work Phone: 03-11-2017 influenza virus vaccine, unspecified formulation Jade Sourav RETREAD MOLD OPERATOR.STRUCTURED CABLING TECHNICIAN Work Phone: [facility] 04-08-2014 tetanus toxoid, redu rory diphtheria toxoid, and acellular pertussis vaccine, adsorbed Jade Cinebar RETREAD MOLD OPERATOR.STRUCTURED CABLING TECHNICIAN Work Phone: [facility] Payers Date Payer Category Payer Unknown [id number] 2024 Unknown [id number] 2024 Self-pay [id number] 2022 Private Health Insurance [id number] 2022 Private Health Insurance [id number] 2015 Unknown [employer] PPO [id number] 2015-Present [phone] [address] [place] [address] PPO [id number] 2015 Unknown [employer] PPO [id number] 2015-Present [phone] [address] [place] [address] PPO [id number] 1964 Unknown [id number] 1964 Unknown [id number] 1964 Unknown [id number] Unknown [id number] Unknown [id number] Unknown [id number] Unknown [id number] Unknown [id number] Unknown [id number] Unknown [id number] .462 Unknown [id number] .462 Unknown [id number] .[id number] Unknown [id number] .[id number] Unknown [id number] Unknown [id number] .462 Social History Date Type Detail Facility Start: 08-15-2020 End: 08-15-2020 Tobacco smoking status IAIS Unknown if ever smoked [facility] Start: 02-02-2015 None [facility] Start: 02-02-2015 Cigarettes [facility] Start: 1965 Sex Assigned At Female W [facility] Start: 11-13-2020 End: 02-19-2024 Tobacco smoking status IAIS Ex-smoker [facility] Work Phone: Start: 04-28-2004 End: 03-27-2020 History of tobacco use Current smoker [facility] [facility] Work Phone: Start: 04-28-2004 End: 03-27-2020 History of tobacco use Cigarette Smoker [facility] Work Phone: Start: 11-13-2020 End: 03-05-2024 Tobacco use and exposure Smokeless tobacco non-user [facility] Work Phone: Start: 11-15-2021 End: 03-05-2024 Alcohol intake Current non-drinker of alcohol (finding) [facility] Start: 05-02-2009 End: 05-16-2022 Tobacco Comment 5 CIGARETTES PER DAY [facility] Start: 1965 Sex Assigned At Not on file [facility] Start: 11-05-2021 End: 12-06-2022 Exposure to SARS-CoV-2 (event) Not sure [facility] Work Phone: Start: 06-07-2022 End: 02-20-2023 Cigarettes smoked current (pack per day) - Reported 0.3 [facility] Start: 06-05-2022 End: 06-07-2022 Tobacco use and exposure User of smokeless tobacco [facility] Start: 06-05-2022 End: 06-07-2022 Alcohol intake Lifetime non-drinker (finding) [facility] Start: 06-07-2022 End: 02-20-2023 Tobacco use panel [facility] Start: 06-05-2022 Tobacco Comment Jadyn gross [facility] National Score (1-10 0), lower number is lower risk 73 [facility] Clinical Notes 10-26-2021 to 11-04-2024 Note Date & Type Note Facility 11-04-2024 Evaluation note Diagnosis Onset Date Resolution Epilepsy acute November 04 8:49am [facility] Work Phone: 1(191) 977-132111-08-2024 NoteHNO ID: [id number] Author: JADE FERGUSON APRN.STRUCTURED CABLING TECHNICIAN Service: ? Author Type: Nurse Practitioner Type: Progress Notes Filed: 03/05/2024 16:01 Note Text: Founder And Chief Technical Officer offered: Patient declinesNona Ricketts is a 59 year old who presents for an annual gynecologic exam without complaints. Postmenopausal: Yes HRT use: No. Last Pap: 08/20/2010 normal HPV: 07/26/2009 negative History of abnormal pap: No Last mammogram: 2023 normal History of abnormal mammogram: Yes , mammary duct ectasia Sexually active: No OB History T1 L3 SAB0 IAB0 Ectopic0 Multiple1 Live Births0 Comment: Twin [employer]. 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 As applicable, any other physician, advance practice provider, medical student, or other health professional student that will be observing or involved in the sensitive examination for educational or training purposes was discussed with the Patient or Authorized Skin Carver. The Patient or Authorized Skin Carver has agreed to proceed with the sensitive [...] external genitalia normal, normal Bartholin's glands, urethra, Boone's glands, no vulvar lesions, physiologic discharge present, [...] as needed Jade Dinh (more content not included)...[facility]11-08-2024 History of Present illness Narrative* Jade Ferguson, PATRIZIA.STRUCTURED CABLING TECHNICIAN - 03/05/2024 3:12 PM EST Founder And Chief Technical Officer offered: Patient declines. Reymundo is a 59 [...] Ectopic0 Multiple1 Live Births0 Comment: Twin Boys. 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 As applicable, any other physician, advance practice provider, medical student, or other health professional student that will be observing or involved in the sensitive examination for educational or training purposes was discussed with the Patient or Authorized Skin Carver. The Patient or Authorized Skin Carver has agreed to proceed with the sensitive [...] external genitalia normal, normal Bartholin's glands, urethra, Boone's glands, no vulvar lesions, physiologic discharge present, [...] year or sooner as needed Jade Ferguson APRN.CNP documented in this encounterOhio [facility]10-28-2024 [facility] Medical Records Department [address] [place] [address] History Physical Exam 02/23/24906 MR#: [id number] Acct: [id number] Name: REYMUNDO ALANIS Rep #: [id number] : 1965 59 From: Chase Guadarrama DO PCP: Dr. Nathanael Frazier MD Status:[facility] Location: [place] [address] HPI - General General Date of Admission: 02/23/24 Date of Service: 02/23/24 Chief Complaint: Surveillance colonoscopy HPI Narrative REYMUNDO ALANIS, is a 59 F who presents today for surveillance colonoscopy. She has a past medical history of epilepsy, anxiety, depression, hyperlipidemia. She had a colonoscopy several years ago at [facility] and had a normal colonoscopy during that time. Her first colonoscopy did have adenomatous polyps. She is not having any abdominal pain, cramping, chest aching or shortness of breath. [facility] Medical History (Updated 02/19/24 @ 13:52 by [...] current occupational status: employed current occupation: [employer] Smoking Status: Former smoker quit date: 03/28/20 [...] chest wall rise Res (more content not included)...[facility]08-13-2024 History of Present illness Narrative* PATRIZIA Gavin CNP - 12/09/2023 10:30 AM EDT Chief Complaint Patient presents with 1 Year Follow-up Breast exam HPI: Reymundo Blankenship is a 58 y.o. female who presents for annual clinical breast exam Breast history: -05/23/2022: LEFT diagnostic mammogram/ultrasound ([facility]) demonstrated retroareolar ductal dilation -06/05/2022: She was seen in the breast center by Dr. Avalos. Repeat diagnostic imaging recommended -06/07/2022: She was seen at the breast center for genetic testing. -06/07/2022: LEFT breast ultrasound here at [facility] demonstrated mildly dilated ducts. The radiologistnotes this likely reflects debris. These findings were felt to be probably benign (BI-RADS 3) and a6-month follow-up left breast ultrasound was recommended. -11/12/2022: FAST breast MRI (due to family history and dense breast tissue) benign (BI-RADS 2) and demonstrates dilated ducts in the left breast. -12/06/2022: Bilateral diagnostic mammogram/left breast ultrasound benign (BI- RADS 2) and demonstrate an interval decrease in ductal dilation and internal echoes which are consistent with benign debris. She was recommended to return to routine screening mammogram of both breasts in 1 year. -12/06/2022: She was seen for follow up at the breast center. She was still having some intermittentbilateral breast pain. -12/09/2023: Screening mammogram results not [...] section of this note. She did have [employer] panel panel genetic testing 05/2022 which was negative for deleterious mutation. Results scanned into media dated 06/25/2022. She lost her unexpectedly at the end of November 2022. This has been understandably extremelydifficult for her. She has a good support system and her children. She is also seeing a counselor regularly. Risk Factors: Menarche: 11 Age of first : 21; Menopause: Post; she had a hysterectomy in 2011 at the age of 46. She retains her ovaries. Physical Activity: She walks occasionally. We discussed the [place] [employer] recommends thatadults get at least 150 minutes of moderate [...] with any breast concerns or questions PATRIZIA Garland CNP Please disregard any typographical errors. This note was dictated using voice recognition software. On this date, 12/09/2023 I have spent 20 minutes reviewing previous notes, test results and face to face with the patient discussing the diagnosis and importance of compliance with the treatment plan as well as documenting on the day of the visit. documented in this [facility]07-29-2024 Nurse Note* Mally Hawkins LPN - 11/24/2023 12:00 PM EDT Patient educated, patient verbalized understanding. No further questions at this time. Mally Hawkins LPN November 24, 2023 12:01 PM [facility]07-29-2024 Nurse Note* Mally Hawkins LPN - 11/24/2023 12:00 PM EDT Patient educated, patient verbalized understanding. No further questions at this time. Mally Hawkins LPN November 24, 2023 12:01 PM * Karla Pollard RN - 11/24/2023 11:23 AM EDT REVIEW OF SYSTEMS: General: The patient denies [...] back pain/injury, denies back problems, denies sciatica, deniesknee/foot trouble, denies arthritis, or denies gout. When was patient's last Mammogram screening? 12/06/2022 Last Colonoscopy: 11/09/2018 Karla Pollard RN documented in this encounterOhio [facility]07-29-2024 Instructions* Patient Instructions* Vernell Vanegas APRN.STRUCTURED CABLING TECHNICIAN - 11/24/2023 11:47 AM EDT Images from [...] If you do not have a responsible cab driver (family member or friend) withyou to take you home, your exam cannot be done with sedation and will be cancelled. Please bring a list of all of your current medications, including any Ernf-iaq-Jpqheom medications with you. Medications If you take insulin, diabetic medications or blood thinners such as Coumadin (warfarin), Plavix (clopidogrel), Ticlid (ticlopidine hydrochloride), Agrylin (anagrelide), Xarelto (Rivaroxaban), Pradaxa(Dabigatran), Eliquis (Apixaban), and Effient (Prasugrel). You MUST [...] every 15 minutes for a total of 2glasses. You may continue to drink clear liquids up to (three) 3 hours before your exam. 2 03/2019 documented in this encounterOhio State University [facility]07-29-2024 Nurse Note* Karla Pollard RN - 11/24/2023 11:23 AM EDT REVIEW OF SYSTEMS: General: The patient denies [...] back pain/injury, denies back problems, denies sciatica, deniesknee/foot trouble, denies arthritis, or denies gout. When was patient's last Mammogram screening? 12/06/2022 Last Colonoscopy: 11/09/2018 Karla Pollard RN [facility]07-29-2024 NoteHNO ID: [id number] Author: VERNELL VANEGAS APRN.STRUCTURED CABLING TECHNICIAN Service: ? Author Type: Nurse Practitioner Type: [...] entered by the nurse and reviewed by sc Nursing Notes: Karla Pollard RN 11/24/2023 11:32 [...] peripheral arterial stent. Respiratory: (more content not included)...[facility]07-29-2024 History of Present illness Narrative* Vernell Vanegas APRN.STRUCTURED CABLING TECHNICIAN - 11/24/2023 11:20 AM EDT HISTORY AND PHYSICAL Reymundo Blankenship : 1965 [...] entered by the nurse and reviewed by sc Nursing Notes: Karla Pollard RN 11/24/2023 11:32 [...] back pain/injury, denies back problems, denies sciatica, deniesknee/foot trouble, denies arthritis, or denies gout. When was patient's last Mammogram screening? 12/06/2022 Last Colonoscopy: 11/09/2018 MARIA ESTHER Christensen Samaria, LPN 11/24/2023 12:01 PM Signed Patient educated, patient verbalized understanding. No further questions at this time. Mally Hawkins LPN November 24, 2023 12:01 PM PHYSICAL EXAMINATION: General: The patient is 58 year old, female well nourished, well hydrated in no acute distress. Thepatient is oriented to time, place, and person. VITALS: Blood pressure 118/72, pulse 78, temperature 36.7 C (98.1 F), height 154.9 cm (5' 1), weight 66.8 kg (147 lb 3.2 oz), last menstrual period 08/19/2010, SpO2 98%. Body mass index is 27.81 kg/m . HEENT: Normal cephalic, ataumatic, pupils are equally round, sclera are anicteric, mucous membranesare moist, oropharynx is clear. Neck has no [...] Will plan for lower endoscopy. We discussed therisks and benefits of the planned endoscopy. I have informed the patient that complications can occur including failure to complete the endoscopy and perforation. Reymundo had the opportunity to ask questions concerning the planned endoscopy. My staff has also explained the procedure to the patient inunderstandable terms and has given the patient printed material concerning the procedure. Reymundo freely consents to surgery. I plan to use Miralax bowel preparation with 2 days of clear liquids I have explained to the patient the difference between IV conscious sedation and MAC anesthesia - and I have offered either, according to the patient's wishes. I have explained that with IV conscioussedation there is no anesthesia provider available and [...] time to think about going to either [facility] or my [facility] and is to call [...] necessary. Vernell Vanegas APRN.RENALDO documented in this encounterOhio [facility]10-26-2023 Instructions* Patient Instructions* Laney Murphy APRN.CNP - 02/20/2023 4:15 PM [...] history of osteoporosis, are thin, or , orwho take certain medications such as cancer chemotherapy, [...] calcium and are the major food contributors inthe [place]. For example, 8oz of milk (whole, lowfat or skim) contains about 300mg calcium, 8oz of yogurt contains 415mg. Nondairy sources include salmon and sardines and vegetables, such as Algerian cabbage, kale, and broccoli. Foods fortified with calcium include many fruit juices, tofu and cereals. For more food calcium content information, visit http://ods.od.nih.gov/factsheets/calcium. Calcium supplements come in several different forms. [...] acid, calcium carbonate is found in some kzgx-lqk-bexrrky antacid products, such as Tums and Rolaids . Depending on its strength, each chewable pill or softchew provides 200 to 400 mg of elemental calcium. The percentage of calcium absorbed depends on the total amount of elemental calcium consumed at onetime. Absorption is highest in doses <500mg. So [...] and maintains adequate blood levels of calcium andphosphate for normal bone growth and bone remodeling. [...] content, and sunscreen are among the factors thataffect UV radiation exposure and vitamin D synthesis. Despite the importance of the sun for vitaminD synthesis, it is prudent to limit exposure [...] available in two forms, D2 (ergocalciferol) and D3(cholecalciferol). The two are equivalent at normal supplement [...] prescribed by your doctor. documented in this encounterOhio [facility] University [facility]10-26-2023 History of Present illness Narrative* Laney Murphy APRN.CNP - 02/20/2023 3:41 PM EDT Reymundo is a 58 year old who presents for an annual gynecologic exam without complaints. Has history of abnormal mammograms and strong family history of cancer - mammograms managed by [facility]. Had genetic testing done as well. Patient [...] Ectopic0 Multiple1 Live Births0 Comment: Twin Boys. 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: 08/19/2010, Hysterectomy Age at Menarche: Age at First : Age at Menopause: Parking Meter Attendant History Comments: Sexual Activity: Not Currently; Male; [...] external genitalia normal, normal Bartholin's glands, urethra, Boone's glands, no vulvar lesions, good vaginal support, physiologic discharge present, normal appearing perineal body and perianal region BIMANUAL: no adnexal masses, non-tender, and uterus surgically absent RECTOVAGINAL: deferred. NEURO: alert and oriented x3,exam grossly non-focal EXTREMITIES: normal ASSESSMENT/PLAN: 1) Health maintenance: Pap/HPV screening no longer needed Mammogram up to date - managed by [facility] Calcium/Vitamin D supplementation information provided. Colonoscopy due next year. 2) Patient grieving loss of - Medication managed by PCP - Has counseling in place 3) Follow up one year or sooner as needed JIMMY Sherman APRN.CNP documented in this encounterOhio State University [facility]09-20-2023 Miscellaneous Notes* Telephone Encounter - Sabina Diaz LPN - 01/15/2023 4:23 PM EDT Patient has yearly exam 02/20/2023. Requesting refill of Acyclovir documented in this encounterOhio State University [facility]08-11-2023 History of Present illness Narrative* Reny Markham APRN - RENALDO - 12/06/2022 3:00 PM EDT Images from the original note were [...] abnormal breast imaging. -05/23/2022: LEFT diagnostic mammogram/ultrasound ([facility]) demonstrated retroareolar ductal dilation -06/07/2022: LEFT breast ultrasound here at [facility] demonstrated mildly dilated ducts. The radiologistnotes this likely reflects debris. These findings were felt to be probably benign (BI-RADS 3) and a6-month follow-up left breast ultrasound was recommended. -11/12/2022: [...] section of this note. She did have [employer] [employer] panel panel genetic testing 05/2022 which was [...] We discussed her breast pain may be relatedto this. We discussed conservative measures for breast pain including OTC analgesics, heat/ice, andwearing a supportive bra. We reviewed her normal [...] She is requesting a referral to a court orderly here at [facility]. Risk Factors: Menarche: 11 Age of first : 21; Menopause: Post Physical Activity: She was previously limited due to an ankle injury but plans to begin walking. Wediscussed the [place] [employer] recommends that adults get at [...] This is a benign change. No further follow- up is needed. IMPRESSION: Interval decrease in ductal dilatation and internal echoes which are consistent with benign debris.There is no mammographic or targeted sonographic evidence [...] breast pain including OTC analgesics, heat/ice, and wearinga supportive bra. We discussed if she has [...] using voice recognition software. documented in this [facility]08-11-2023 Instructions* Patient Instructions* PATRIZIA Gavin CNP - 12/06/2022 3:00 PM [...] associated with physical activity is 12% -The [place] [employer] recommends that adults get at [...] week. Research shows an association between increased alcoholintake and breast cancer. Breast Health - Perform [...] and other preventive screenings including monitoring your bloodpressure, blood sugar and cholesterol. documented in this [facility]02-08-2023 History of Present illness Narrative* Anirudh Avalos MD - 06/05/2022 1:30 PM EST Images from the original note were not included. Chief Complaint Patient presents with New Patient Evaluation for abnormal imaging-pt states that she has had left breast pain for the last 4 months History of Present Illness: Reymudno Blankenship is a 57 y.o. female here for evaluation of left breast pain x 4 mos and abnormal imaging ( US left breast ) She denies any breast masses or nipple discharge No skin changes The patient's medical history, reproductive history, breast history and family history have been reviewed. Using [employer] software, the family genogram has been generated [...] Bmi 27 postmenopausal Imaging: Screening mammogram 11/15/21 [facility], report copied below, LEFT diagnostic mammogram and ultrasound 05/23/22 [facility], reports in media PT TO BRING [facility] TO APPOINTMENT Provider, [facility] [place] - 11/15/2021 * * *Final Report* * * DATE OF EXAM: Nov 15 2021 8:20AM [facility] [id number] - [facility] SCREENING W CARLIN / PROCEDURE REASON: Encounter for screening mammogram for breast cancer * * * * Physician Interpretation * * * * RESULT: #[id number] - CONSTANCE SCREENING W CARLIN BILATERAL DIGITAL [...] dated: 11/13/2020 mammogram and 10/08/2019 mammogram - [facility]. The tissue of both breasts is heterogeneously [...] screening mammogram is recommended. Jose garland/tayla:11/15/2021 10:21:18 Wire Wrapper Machine Operator(s): Nikki Strange, [facility] letter sent: Normal over 40 Mammogram BI-RADS: 2 Benign finding ULTRASOUND 05/13/22 done for LEFT breast pain US left retroareolar region: dilated ducts with possible echogenic foci- ductogram recommended [facility]- category 0 LEFT Dx mammogram: scattered areas [...] using voice recognition software. documented in this [facility]02-08-2023 Instructions* Patient Instructions* Bebe Arias - 06/05/2022 1:30 PM EST Breast imaging disc from [facility] taken to [facility] to be loaded into [facility] [facility] Reymundo is scheduled for left breast ultrasound 06/07/22 documented in this [facility]02-07-2023 Miscellaneous Notes* Telephone Encounter - Jade Ferguson APRN.RENALDO - 06/04/2022 11:05 AM EST Noted. Thank you, Jade Ferguson APRN.CNP Encounter can be closed. * Telephone Encounter - Yessenia Murcia LPN - 06/04/2022 10:54 AM EST Spoke with pt to see if the breast center had gotten hold of her to schedule her Ductogram. Pt stated that when they contacted her they wanted her to repeat a mammogram, I had explained to pt earlierthat this would most likely be the case and not to be surprised by this. Pt stated that she is not going to just keep repeating the same test so she stated that she has found another physician and isgoing to him. I did let pt know that there is a diagnostic mammogram scheduled for her on 06/18/22, she stated that she was not aware of this and that she won't be coming to this appt. Appointment canceled. Please advise with any further instructions. Yessenia Murcia LPN * Telephone Encounter - Yessenia Murcia LPN - 05/27/2022 10:23 AM EST Received call from Socorro Arechiga, nurse from the Breast Center, stated that they received the report for her mammogram, ultrasound and uploaded images from [facility]. It will take a couple days for radiologist to review and then their office will contact pt to schedule procedure. Pt has been updated as to where we are in getting her scheduled. Please leave note open until can see that appointment has been scheduled. Yessenia Murcia LPN * Telephone Encounter - Yessenia Murcia LPN - 05/24/2022 4:27 PM EST Spoke with pt and explained results and testing needed. [facility] returned call and they are uploading the images into our system so the radiologist can view these. Message sent to Socorro Arechiga, Nurse at the breast [facility]pp[facility] that those images will be available to their office. Will await further directives. Yessenia Murcia LPN * Telephone Encounter - Yessenia Murcia LPN - 05/24/2022 4:08 PM EST Spoke with Socorro Arechiga at [facility]. [phone]. Report from mammogram and breast ultrasound faxed to that office at [phone]. The Radiologist needs to review her report as well as needing a disc of her actual films. The radiologist will then decide how to proceed from that point and contact the pt. [facility] mammography dept contacted to obtain disc of films done 05/23/22, message left askingfor a return call and all that was needed. Will await return call from their office. Yessenia Murcia LPN * Telephone Encounter - Jade Ferguson APRN.CNP - 05/24/2022 3:47 PM EST Working on ordering correct testing. Jade Ferguson APRN.CNP * Telephone Encounter - Ciera Quispe RN - 05/24/2022 3:00 PM EST Patient had mammogram done at [facility]. Asking about her results. States [facility] was to fax the results to our office yesterday. Needs additional imaging. Result printed from [employer]. In provider's mailbox to review. Ciera Quispe RN documented in this encounterOhio [facility]01-31-2023 History of Present illness Narrative* Lacy Negron MD - 05/28/2022 5:50 PM EST I am asked to review outside imaging on this patient prior [facility] She presented 05/23/2022 for evaluation of pain in the subareolar left breast. After left diagnostic mammogram/ultrasound, she was referred for a ductogram on the left. Submitted exams include left breast diagnostic mammogram and left subareolar ultrasound from that same date. Mammogram interpretation 05/23/2022: Note that only the tomosynthesis slab images are provided. I donot have 2D imaging of the breast in [...] recommended. Note that the recommendation from outside facilitywas for correlation with a left ductogram for possible intraductal findings. In the absence of leftdischarge or other specific focal symptoms, I do not see a specific indication for ductogram at this time. If the left subareolar intraductal findings are felt to be reproducible, then ultrasound-guided biopsy could be considered at that time. documented in this encounter[facility] Instructions* Patient Instructions* Jade Ferguson APRN.RENALDO - 05/16/2022 3:34 PM EST Management of Benign Breast Pain / Fibrocystic Changes Decrease or avoid intake of caffeine, including coffee, teas, sodas, and chocolate. Decrease or avoid nicotine. Wear a support or sports (not underwire) bra. Take pype-jxn-zllnxyn ibuprofen (Advil/Motrin) or other NSAIDs, such as naproxen (Aleve). Take 3 grams (3000 mg.) of evening primrose oil (available ksmo-zjr-jphfsqv) in divided doses for 2months. Take warm showers. Use warm compresses. documented in this encounterOhio [facility]01-19-[facility]23 History of Present illness Narrative* Jade Ferguson APRN.RENALDO - 05/16/2022 3:16 PM EST BREAST LUMP HISTORY: This is a 57 year old female Presents with mastalgia left Tenderness Yes, left lower breast and nipple area x 4 months Any history breast mass No Caffeine use Yes 5 cups/day Last [id number] normal Any previous breast surgery No Any [...] breast education given to pt Jade Ferguson APRN.CNP Medical Decision Making: Problems: Low: Acute, uncomplicated illness or injury Data: Unique test(s) ordered: 2 Risk: Low: Low risk from testing/treatment Medical Decision Making Level: 3 - Low documented in this encounterOhio [facility]10-06-[facility]22 Miscellaneous Notes* Telephone Encounter - Ciera Quispe RN - 01/31/2022 4:15 PM EDT Patient changed insurance. Needs prescription sent to [facility] Mail order. RX pending. Requested Prescriptions Pending Prescriptions Disp Refills acyclovir (ZOVIRAX) 400 mg tablet 180 tablet 2 Sig: Take 1 tablet by mouth twice daily. documented in this encounterOhio [facility]07-21-2022 Miscellaneous Notes* Letter - Mammography Coordinator - 11/15/2021 10:21 AM EDT November 15, 2021 PID: [id number] Reymundo Blankenship [address] [place] [address] Dear Ms. Blankenship, We are pleased to [...] dense breast tissue in addition to other riskfactors. Early detection of cancer is very important. We also understand recommendations regarding breast cancer screening are controversial. Please discuss with your primary care provider which strategy is best for you and whether a mammogram is right for you. Your imaging studies and report will be kept on file at [facility] as part of your permanent medical record and are available for your continuing care. Thank you for allowing us to help in meeting your health care needs. Sincerely, Dr. Tatum Interpreting Radiologist [facility] (Normal over 40) documented in this encounterOhio State University [facility]07-21-2022 History of Present illness Narrative* RT Audra(R) - 11/15/2021 7:50 AM EDT Radiology Service Progress Note PATIENT NAME: Reymundo Blankenship DATE OF SERVICE: November 15, 2021 TIME: 7:58 AM PATIENT IDENTITY VERIFICATION COMPLETED USING TWO (2) IDENTIFIERS: Name and Date of confirmedby patient verbally. FALL SCREENING: Has the patient [...] 15, 2021 7:58 AM documented in this encounterOhio State University [facility]07-21-2022 History of Present illness Narrative* Jade Ferguson APRN.RENALDO - 11/15/2021 7:08 AM EDT Reymundo is a 56 year old who [...] Ectopic0 Multiple1 Live Births0 Comment: [employer]. 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: 08/19/2010, Hysterectomy Age at Menarche: Age at First : Age at Menopause: Parking Meter Attendant History Comments: Sexual Activity: Not Currently; Male; [...] ONLY TWIN DELIVERY COLONOSCOP W/ OR W/O [facility] SPEC 09/01/2013 Colonoscopy COLONOSCOP W/ OR W/O [facility] SPEC 11/09/2018 Colonoscopy EXTENSIVE FINGER [...] external genitalia normal, normal Bartholin's glands, urethra, Boone's glands, no vulvar lesions, good vaginal support, [...] year or sooner as needed Jade Ferguson APRN.STRUCTURED CABLING TECHNICIAN documented in this encounterOhio State University [facility]07-01-2022 [facility] ACCOUNT SEX AGE ADMIT DISCHARGE PT MED. RECORD# NUMBER DATE DATE TYPE REYMUNDO BLANKENSHIP [id number] F 56 10/25/21 10/25/21 2 L [id number] ROOM: DATE OF : 63 DICTATING PHYSICIAN: [...] the morning of October 26, 2021, at [facility]. Dictated By: Manju Russell DPM 10/25/21 17:11 JOB #: [id number] Transcribed By: isadora 10/25/21 18:05 Electronically signed by: E-SIGN MANJU RUSSELL Page 1 of 2 REYMUNDO BLANKENSHIP KELLY L :1965 10/26/21 10:04 Update to H&P: [ ] No changes: I have examined the patient and reviewed the H&P and there are no changes. [ ] As previously dictated with the following changes: ____ ____ ____ PHYSICIAN SIGNATURE: TIME: DATE: Page 2 of 2 REYMUNDO BLANKENSHIP CHUNGlinus [facility] Access HospitalEvaluation noteNo assessment information availableWProMedica [facility] Work Phone: Evaluation note* Diagnosis Encounter for gynecological examination (general) (routine) without abnormal findings- Primary Encounter for screening mammogram for malignant neoplasm of breast Other screening mammogram documented in this encounter [facility] note* Diagnosis Encounter for screening mammogram for breast cancer documented in this encounter [facility] note* Diagnosis Breast pain in female- Primary Mastodynia documented in this encounter [facility] note* Diagnosis Abnormal finding on radiological examination of breast- Primary Other (abnormal) findings on radiological examination of breast documented in this encounter [facility] note* Diagnosis Dense breasts Inconclusive mammogram Family history of breast cancer Family history of malignant neoplasm of breast documented in this encounter [facility] note* Diagnosis Family history of breast cancer- Primary Family history of malignant neoplasm of breast Encounter for screening mammogram for breast cancer Breast pain Mastodynia Family history of pancreatic cancer Family history of malignant neoplasm of gastrointestinal tract Rheumatoid arthritis, involving unspecified site, unspecified whether rheumatoid factor present (HCC) documented in this encounter [facility] note* Diagnosis Mammary duct ectasia of left breast documented in this encounter [facility] note* Diagnosis Encounter for gynecological examination (general) (routine) without abnormal findings- Primary [facility]* Diagnosis History of colonic polyps- Primary Personal history of colonic polyps Encounter for screening for malignant neoplasm of colon Special screening for malignant neoplasms, colon documented in this encounter [facility] note* Diagnosis Family history of breast cancer- [...] other specified reasons documented in this encounter [facility] note* Diagnosis Encounter for screening mammogram for breast cancer [facility]* Diagnosis Encounter for gynecological examination (general) (routine) without abnormal findings- Primary Encounter for screening mammogram for breast cancer [facility]* Diagnosis Mammary duct ectasia of left breast- Primary Family history of pancreatic cancer Family history of malignant neoplasm of gastrointestinal tract Family history of melanoma Family history of other specified malignant neoplasm Dense breasts Inconclusive mammogram Mastodynia of left breast 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documented [facility]* Diagnosis Onset Date Resolution Status Admit Date Epilepsy acute November 04 8:49am [employer] Work Phone: Reason for referral (narrative)* Diagnostic Procedure Only (Routine) - Pending Review Specialty Diagnoses / Procedures Referred By Shady taylor Referred To Contact [facility] Diagnoses Encounter for screening mammogram for malignant neoplasm of breast Procedures CONSTANCE SCREENING W CARLIN SCREENING DIGITAL BREAST TOMOSYNTHESIS BI SCREENING MAMMOGRAPHY BI 2-VIEW BREAST INC CAD Jade Ferguson APRN.CNP [address] [place] [address] [facility] [address] [address] Referral ID Status Reason Start Date Expiration Date Visits Requested Visits Authorized [id number] Pending Review Auto-Generat ed Referral 11/15/2021 12/15/2022 1 1 [facility] for referral (narrative)* Diagnostic Procedure Only (Routine) - Pending Review Specialty Diagnoses / Procedures Referred By Shady taylor Referred To Contact [facility] Diagnoses Breast pain in female Procedures US BREAST LTD LT US BREAST UNI REAL TIME WITH IMAGE LIMITED Jade Ferguson APRN.CNP [address] [place] [address] [facility] [address] [place] [address] Referral ID Status Reason Start Date Expiration Date Visits Requested Visits Authorized [id number] Pending Review Auto-Generat ed Referral 05/16/2022 06/15/2023 1 1 * Diagnostic Procedure Only (Routine) - Pending Review Specialty Diagnoses / Procedures Referred By Shady taylor Referred To Contact [facility] Diagnoses Breast pain in female Procedures CONSTANCE DIAGNOSTIC LT DIAGNOSTIC MAMMOGRAPHY COMPUTER-AIDED DETCJ UNI Jade Ferguson APRN.CNP [address] [place] [address] [facility] [address] [place] [address] Referral ID Status Reason Start Date Expiration Date Visits Requested Visits Authorized [id number] Pending Review Auto-Generat ed Referral 05/16/2022 06/15/2023 1 1 [facility] for referral (narrative)* Diagnostic Procedure Only (Routine) - Pending Review Specialty Diagnoses / Procedures Referred By Contac t Referred To Contact [facility] Diagnoses Abnormal finding on radiological examination of breast Procedures US BREAST LTD LT US BREAST UNI REAL TIME WITH IMAGE LIMITED Lacy Negron MD [address] [place] [address] [facility] [address] [place] [address] Referral ID Status Reason Start Date Expiration Date Visits Requested Visits Authorized [id number] Pending Review Auto-Generat ed Referral 05/28/2022 06/27/2023 1 1 * Diagnostic Procedure Only (Routine) - Pending Review Specialty Diagnoses / Procedures Referred By Contac t Referred To Contact [facility] Diagnoses Abnormal finding on radiological examination of breast Procedures CONSTANCE DIAGNOSTIC LT DIAGNOSTIC MAMMOGRAPHY COMPUTER-AIDED DETCJ [facility] Lacy Negron MD [address] [place] [address] [facility] [address] [place] [address] Referral ID Status Reason Start Date Expiration Date Visits Requested Visits Authorized [id number] Pending Review Auto-Generat ed Referral 05/28/2022 06/27/2023 1 1 [facility] for referral (narrative)* Consultation (Routine) - Pending Review Specialty Diagnoses / Procedures Referred By Contac t Referred To Contact Rheumatology Diagnoses Rheumatoid arthritis, involving unspecified site, unspecified whether rheumatoid factor present (HCC) Procedures WA OFFICE/OUTPATIENT NEW HIGH MDM 60-74 MINUTES Reny Markham APRN - CNP [address] [place] [address] [facility] Rheum [address] [place] [address] Referral ID Status Reason Start Date Expiration Date Visits Requested Visits Authorized [id number] Pending Review Specialty Services Required 12/06/2022 12/06/2023 1 1 [facility] for referral (narrative)* Outpatient Procedure (Routine) - New Request Specialty Diagnoses / Procedures Referred By Shady taylor Referred To Contact [facility] Diagnoses History of colonic polyps Encounter for screening for malignant neoplasm of colon Procedures COLONOSCOPY SCREENING COLONOSCOPY FLX DX W/COLLJ SPEC WHEN Vernell Baca APRN.STRUCTURED CABLING TECHNICIAN [address] [facility] [place] [place] [address] [facility] [address] [place] [address] Referral ID Status Reason Start Date Expiration Date Visits Requested Visits Authorized [id number] New Request Auto-Generat ed Referral 11/24/2023 11/23/2024 1 1 [facility] for referral (narrative)* Diagnostic Procedure Only (Routine) - Authorized Specialty Diagnoses / Procedures Referred By Shady t Referred To Contact [facility] Diagnoses Encounter for screening mammogram for breast cancer Procedures CONSTANCE SCREENING W CARLIN SCREENING DIGITAL BREAST TOMOSYNTHESIS BI SCREENING MAMMOGRAPHY BI 2-VIEW BREAST INC CAD Jade Ferguson APRN.CNP [address] [place] [address] [facility] [address] [place] [address] Referral ID Status Reason Start Date Expiration Date Visits Requested Visits Authorized [id number] Authorized Auto-Generat ed Referral 12/08/2024 04/04/2025 1 1 [facility] for referral (narrative)No reason for referral information availableWProMedica [facility] Work Phone: Family History Relationship Condition Age [...] Will Yes March 14 5:34am Power of Horse Racing Analyst Yes March 14, 2020 5:34am Documents on File Type Date Recorded Patient Skin Carver Expl anation Advance Directive(s) 11/09/2018 7:33 AM Documents on File Type Date Recorded Patient Skin Carver Expl anation Advance Directive(s) 11/09/2018 7:33 AM Advance Directive Response Recorded Date/ Time Advance Directives No February 02, 2015 8:54am Living Will Yes March 14 4:34am Power of Horse Racing Analyst Yes March 14, 2020 4:34am Advance Directive Response Recorded Date/ Time Advance Directives No February 02, 2015 9:54am Advance Directive Response Recorded Date/ Time Living Will Yes March 14 5:34am Do you have a Healthcare Power of Horse Racing Analyst? Yes March 14, 2020 5:34am Advance Directives [...] 20 6:40am FAMILY HX OF HEART DISEASE March 25th, 2 025 7:55am EPILEPSY November 04, 2024 8:49 am Reason for Visit Admit Date Epilepsy November 04, 2024 8:49 am Chief Complaint Admit Date FAMILY HX OF HEART DISEASE July 20 6:40am FAMILY HX OF HEART DISEASE July 20 7:55am EPILEPSY November 04, 2024 8:49 am history of muliple fractures November 11, 2024 3:13pm Reason for Referral Specialty Diagnoses / Procedures Referred By Contleslie t Referred To Contact Radiology Diagnoses Dense breasts Family history of breast cancer Procedures BI MR fast breast bilateral w/wo contrast Reny Markham, RETREAD MOLD OPERATOR - STRUCTURED CABLING TECHNICIAN [address] [place] [address] Referral ID Status Reason Start Date Expiration Date Visits Re quested Visits Authorized [id number] Closed 06/07/2022 12/04/2022 1 1 Additional Source [...] section and content) DATE CREATED AUTHOR 11/01/2021 [facility] DATE CREATED AUTHOR AUTHOR'S ORGANIZ ATION 11/01/2021 [facility] DATE CREATED AUTHOR AUTHOR'S ORGANIZ ATION 12/10/2023 [facility] DATE CREATED AUTHOR AUTHOR'S ORGANIZ ATION 03/07/2024 [facility] DATE CREATED AUTHOR AUTHOR'S ORGANIZ ATION 11/08/2024 [facility] Source Comments (unrecognize d section and content) In the event this informatio n is protected by the Federal Confidentiality of Alcohol and Drug Abuse Patient Records regulations: The Federal rules restrict any use of the information to criminally investigate or prosecute any alcohol or drug abuse patient.[facility] CenterIn the event this information is protected by the Federal Confidentiality of Alcohol and Drug Abuse Patient Records regulations: The Federal rules restrict any use of the information to criminally investigate or prosecute any alcohol or drug abuse patient.[facility] CenterIn the event this information is protected by the Federal Confidentiality of Alcohol and Drug Abuse Patient Records regulations: The Federal rules restrict any use of the information to criminally investigate or prosecute any alcohol or drug abuse patient.[facility] CenterIn the event this information is protected by the Federal Confidentiality of Alcohol and Drug Abuse Patient Records regulations: The Federal rules restrict any use of the information to criminally investigate or prosecute any alcohol or drug abuse patient.[facility] CenterIn the event this information is protected by the Federal Confidentiality of Alcohol and Drug Abuse Patient Records regulations: The Federal rules restrict any use of the information to criminally investigate or prosecute any alcohol or drug abuse patient.[facility] CenterIn the event this information is protected by the Federal Confidentiality of Alcohol and Drug Abuse Patient Records regulations: The Federal rules restrict any use of the information to criminally investigate or prosecute any alcohol or drug abuse patient.[facility] CenterIn the event this information is protected by the Federal Confidentiality of Alcohol and Drug Abuse Patient Records regulations: The Federal rules restrict any use of the information to criminally investigate or prosecute any alcohol or drug abuse patient.[facility] CenterIn the event this information is protected by the Federal Confidentiality of Alcohol and Drug Abuse Patient Records regulations: The Federal rules restrict any use of the information to criminally investigate or prosecute any alcohol or drug abuse patient.[facility] CenterIn the event this information is protected by the Federal Confidentiality of Alcohol and Drug Abuse Patient Records regulations: The Federal rules restrict any use of the information to criminally investigate or prosecute any alcohol or drug abuse patient.[facility] CenterIn the event this information is protected by the Federal Confidentiality of Alcohol and Drug Abuse Patient Records regulations: The Federal rules restrict any use of the information to criminally investigate or prosecute any alcohol or drug abuse patient.[facility] CenterIn the event this information is protected by the Federal Confidentiality of Alcohol and Drug Abuse Patient Records regulations: The Federal rules restrict any use of the information to criminally investigate or prosecute any alcohol or drug abuse patient.[facility] CenterIn the event this information is protected by the Federal Confidentiality of Alcohol and Drug Abuse Patient Records regulations: The Federal rules restrict any use of the information to criminally investigate or prosecute any alcohol or drug abuse patient.[facility] Reason for Visit (unrecogniz ed section and content) Reason Comments Parking Meter Attendant Exam Reason Onset Date Comments Refill Request 01/31/2022 Reason Comments Breast Problem Reason Comments Mammogram Abnormality Reason Comments Mammogram Abnormality Specialty Diagnoses / Procedures Referred By Shady taylor Referred To Contact Radiology Diagnoses Dense breasts Family history of breast cancer Procedures BI MR fast breast bilateral w/wo contrast Fletcher Reny, RETREAD MOLD OPERATOR - STRUCTURED CABLING TECHNICIAN [address] [place] [address] Referral ID Status Reason Start Date Expiration Date Visits Re quested Visits Authorized [id number] Closed 06/07/2022 12/04/2022 1 1 Reason Comments 6 Month Follow-up Left breast pain vandana t comes and goes, right breast pain that is less frequent Reason Onset Date Comments Refill Request Refill Request 01/15/2023 Reason Comments Yearly Exam Reason Comments Refill Request Reason Comments Consult colonoscopy Reason Comments 1 Year Follow-up Breast exam Reason Comments Well Woman Reason Comments New Patient Evaluation for abnor mal imaging-pt states that she has had left breast pain for the last 4 months Care Teams (unrecognized sec tion and content) Field Cane Scale Clerk Relationship Specialty Start Date End Date Héctor Yepez MD [address] [place] [address] PCP - General 02/20/04 Field Cane Scale Clerk Relationship Specialty Start Date End Date Héctor Yepez MD [address] [place] [address] PCP - General 02/20/04 Field Cane Scale Clerk Relationship Specialty Start Date End Date Héctor Yepez MD [address] [place] [address] [place] [address] PCP - General 02/20/04 Field Cane Scale Clerk Relationship Specialty Start Date End Date Héctor Yepez MD [address] [place] [address] PCP - General 02/20/04 Field Cane Scale Clerk Relationship Specialty Start Date End Date Héctor Yepez MD [address] [place] [address] PCP - General 02/20/04 Field Cane Scale Clerk Relationship Specialty Start Date End Date Héctor Yepez MD [address] [place], [place] [address] PCP - General 02/20/04 Team Status: Active Member Role Status Dates Dr. Héctor Yepez MD Family Provider Active Carmen Snow DO Primary Care Provider Active Team Status: Active Member Role Status Dates Carmen Snow DO Primary Care Provider Active Dr. Andrei Lerma MD Attending Provider Active Jade Sourav ASIAN STUDIES PROFESSOR, ASIAN STUDIES PROFESSOR-C Referring Provider Active Team Status: Inactive Member Role Status Dates Dr. Héctor Harp MD Primary Care Provider Active Carmen Snow DO Attending Provider Active Team Status: Inactive Member Role Status Dates Carmen Snow DO Primary Care Provider Active Jade Sourav ASIAN STUDIES PROFESSOR, ASIAN STUDIES PROFESSOR-C Attending Provider Active Team Status: Active Member [...] Vazquez MD Attending Provider, Referring Provider Active Field Cane Scale Clerk Relationship Specialty Start Date End Date Shaunna Snow MD [address] [place] [id number] PCP - General Pediatrics 06/05/22 Field Cane Scale Clerk Relationship Specialty Start Date End Date Shaunna Snow MD [address] [place] [phone] PCP - General Pediatrics 06/05/22 Field Cane Scale Clerk Relationship Specialty Start Date End Date Shaunna Snow MD [address] [place] [address] PCP - General Pediatrics 06/05/22 Field Cane Scale Clerk Relationship Specialty Start Date End Date Héctor Yepez MD [address] [place] [address] PCP - General 02/20/04 Field Cane Scale Clerk Relationship Specialty Start Date End Date Héctor Yepez MD [address] [place] [address] PCP - General 02/20/04 Team Status: Inactive Member Role Status Dates Carmen Snow , Primary Care Provider Active Dr. Bebe William MD Attending Provider, Sandra caraballo Active Field Cane Scale Clerk Relationship Specialty Start Date End Date Héctor Yepez MD [address] [place] [address] PCP - General 02/20/04 Field Cane Scale Clerk Relationship Specialty Start Date End Date Héctor Yepez MD [address] [place] [address] PCP - General 02/20/04 Field Cane Scale Clerk Relationship Specialty Start Date End Date Shaunna Snow MD [address] [place] [address] PCP - General Pediatrics 06/05/22 Field Cane Scale Clerk Relationship Specialty Start Date End Date Shuanna Snow MD [address] [place] [address] PCP - General Pediatrics 06/05/22 Field Cane Scale Clerk Relationship Specialty Start Date End Date Héctor Yepez MD [address] [address] PCP - General 02/20/04 Field Cane Scale Clerk Relationship Specialty Start Date End Date Shaunna Snow MD [address] [facility], [address] [place] [address] PCP - General Pediatrics 06/05/22 Team Status: [...] Nathanael Frazier MD Other Provider Active Start: [facility] [address]24 Dr. Arron Soto MD Attending Provider [...] Team Status: Active Member Role/Relationship Status Mulu Frazeir MD Primary Care Provider Active St art: July 20, 2024 Nathanael Frazier MD Referring Provider Active Start : July 20, 2024 Nathanael Frazier MD Other Provider Active Start: [facility] 2024 Dr. Arron oSto MD Attending Provider Active S tart: July 20, 2024 Team Status: Inactive Member Role/Relationship Status Mulu Frazier , MD Primary Care Provider Active St art: [...] November 04, 2024 End: November 04, 2024 Team Status: Inactive Member Role/Relationship Status Dates Nathanael Fraizer MD Primary Care Provider Active St art: November 06, 2024 End: November 06, 2024 Dr. Ranjith Lee MD Attending Provider Active Start: November 06, 2024 End: November 06, 2024 Dr. Ranjith Lee MD Referring Provider Active Start: November 06, 2024 End: November 06, 2024 Team Status: Active Member Role/Relationship Status Dates Nathanael Frazier MD Primary Care Provider Active St art: November 11, 2024 Dr. Ranjith Lee MD Attending Provider Active Start: November 11, 2024 Dr. Ranjith Lee MD Referring Provider Active Start: November 11, 2024 FOR RECORDS PERTAINING TO PATIENTS WHO [...] BE BASED ON THE PRIMARY CLINICAL RECORDS. [facility] [employer] provides no warranty or guarantee of the accuracy or completeness of information in this document.
== END 2024-11-11 23:59 | disposition home or self-care (01) ==
LOC: OPBD 15:14
PROVIDERS: PCP Family Medicine; Referring Provider Psychiatry & Neurology Neurology; Visit Provider Psychiatry & Neurology Neurology
DX: Z13.820 Encounter for screening for osteoporosis (principal); G40.909 Epilepsy, unspecified, not intractable, without status epilepticus
CPT/HCPCS: 77080

== ENCOUNTER → 2024-12-17 | Outpatient (CLI) | payer BC, SELFPAY ==
--- NOTE | 2024-12-17 10:15 | MRI_ITS ---
PROCEDURE: BRAIN W/WO CONTRAST 12/17/2024 REASON FOR EXAM: HISTORY OF ATONIC SEIZURES TECHNIQUE: BRAIN W/WO CONTRAST Multiplanar and multisequence images were obtained. CONTRAST: Kallie scan VOLUME: 13 mL FINDINGS: Normal craniocervical junction is noted. There is no pathologic diffusion restriction or hydrocephalus. Normal brainstem and cerebellum. No pathologic flow voids. Symmetric appearance of the orbits. No intra-axial or extra-axial masses. There are few areas of nonspecific punctate subcortical leukomalacia. No acute or chronic hemorrhage. No pathologic enhancement. No temporal lobe asymmetry. No definite hippocampal edema or atrophy. MRI/Brain W/WO Contrast IMPRESSION: Minimal nonspecific subcortical leukomalacia. No other positive findings. Reading [facility]
== END | disposition home or self-care (01) ==
LOC: PSN 08:11
PROVIDERS: PCP Family Medicine; Referring Provider Psychiatry & Neurology Neurology; Visit Provider Psychiatry & Neurology Neurology
DX: G40.909 Epilepsy, unspecified, not intractable, without status epilepticus (principal)
CPT/HCPCS: 70553; 95819; A9575

== ENCOUNTER → 2025-03-25 | Outpatient (CLI) | payer BC, SELFPAY ==
--- OUTSIDE RECORDS SUMMARY | 2025-03-25 09:19 | XMS RPT_ITS | CCD ---
Author Organization [facility] Care Team Providers Care Crane Rigger Name Role Phone CIRO ROONEY DO Admitting Unavailable DIDUR, CIRO MIRANDA Primary Care Unavailable DIDCIRO PALACIO DO Attending Unavailable HORN, MANJU DPM Admitting Unavailable HORN, MANJU DPM Primary Care Unavailable HORN, MANJU DPM Attending Unavailable HORN, MANJU DPM Primary Care Unavailable HORN, MANJU DPM Attending Unavailable HORN, MANJU DPM Admitting Unavailable Héctor Yepez MD Primary Care Provider Héctor Yepez MD Primary Care Provider Héctor Yepez MD Primary Care Provider DO Carmen Snow Primary Care Provider Dr. Andrei Lerma Attending Provider Marty LEVEL VIAL INSPECTOR AND TESTER, LEVEL VIAL INSPECTOR AND TESTER-C Jade Referring Provider Shaunna Snow MD Primary Care Provider Héctor Yepez MD Primary Care Provider Héctor Yepez MD Primary Care Provider Shaunna Snow MD Primary Care Provider Nathanael Frazier MD Primary Care Provider Nathanael Frazier MD Attending Provider Nathanael Frazier MD Referring Provider Nathanael Frazier MD Other Provider Brittany STEPHENSON, Dr. Heller Attending Provider [phone] Mary Ann Vazquez MD Attending Provider Dr. Mary Ann Vazquez MD Referring Provider Rosa STEPHENSON, Dr. Kasper Attending Provider Rosa STEPHENSON, Dr. Kasper Referring Provider EDY, SHAUNNA Referring Unavailable RENY MARKHAM Attending Unavailable EDY, SHAUNNA Primary Care Unavailable EDY, SHAUNNA Primary Care Unavailable RENY MARKHAM Attending Unavailable RENY MARKHAM Referring Unavailable Karin STEPHENSON, Nathanael Primary Care Provider Nathanael Frazier MD Referring Provider Karin, Chalon Primary Care Unavailable Karin, Chalon Referring Unavailable Vellanki, Mary Ann Consulting Unavailable FriendMelvinn Attending Unavailable Friend, Chase Consulting Unavailable Halle Perea Attending Unavailable Vellanki, Mary Ann Primary Care Unavailable Karin, Chalon Primary Care Unavailable Karin, Chalon Referring Unavailable Baddour, Ranjith Attending Unavailable Karin, Chalon Primary Care Unavailable Karin, Chalon Referring Unavailable Karin, Chalon Attending Unavailable Karin, Chalon Primary Care Unavailable Baddour, Ranjith Referring Unavailable Baddour, Ranjith Attending Unavailable Karin, Chalon Primary Care Unavailable Karin, Chalon Referring Unavailable Vellanki, Mary Ann Consulting Unavailable FriendChase Attending Unavailable Karin, Chalon Primary Care Unavailable Baddour, Ranjith Referring Unavailable Baddour, Ranjith Attending Unavailable Karin, Chalon Primary Care Unavailable Vellanki, Mary Ann Attending Unavailable Karin, Chalon Primary Care Unavailable Baddour, Ranjith Referring Unavailable Baddour, Ranjith Attending Unavailable Karin, Chalon Primary Care Unavailable Vellanki, Mary Ann Referring Unavailable Vellanki, Mary Ann Attending Unavailable Karin, Chalon Primary Care Unavailable Baddour, Ranjith Attending Unavailable Baddour, Ranjith Referring Unavailable Karin, Chalon Primary Care Unavailable Karin, Chalon Referring Unavailable Baddour, Ranjith Attending Unavailable Karin, Chalon Consulting Unavailable Karin, Chalon Primary Care Unavailable Karin, Chalon Referring Unavailable Brittany, Santo Attending Unavailable HÉCTOR YEPEZ Primary Care Unavailable MARTY, JADE Referring Unavailable MARTYJADE Attending Unavailable Allergies Allergy Classification Reported Allergen(s) Allergy Type Date of Onset Reaction(s) Facility Amoxicillin / Clavulanate (1 source) Amoxicillin / Clavulanate Drug Allergy 8 GI Upset [facility] Work Phone: (20 sources) Amoxicillin Drug Allergy 1 Nausea, Nausea/Vom/Diar [place] (20 sources) Clavulanate Drug Allergy 1 Nausea, Nausea/Vom/[place]iar [place] (20 sources) Amoxicillin / Clavulanate; Translations: [AMOXICILLIN-PO T CLAVULANATE] Drug Allergy 8 GI Upset [facility] Work Phone: (13 sources) Seasonal allergy; Translations: [SEASONAL ALLERGIES] Propensity to adverse reactions 2 Other: See Comments [facility] (14 sources) Other Propensity to adverse reactions 2 Other [facility] (1 source) Amoxicillin Drug Allergy [address] [facility] (1 source) Clavulanate Drug Allergy [address] [facility] Medications Current Medications Medication Drug [...] Take 1 tablet by imtiaz twice daily. [id number] actuat albuterol 0.09 mg/actuat metered dose [...] of Breath. ARIPiprazole 5 mg oral tablet (15 sources) Atypical Antipsychotic Start: 024 ARIPiprazole (Abilify) 5 MG tablet 11/15/2023 Active atorvastatin 20 mg oral tablet (20 sources) HMG-CoA Reductase Inhibitor Start: 020 atorvastatin (Lipitor) 20 MG tablet 04/25/2022 Active Comment on above: Take 1 tablet by imtiaz th once daily. carBAMazepine 200 mg oral tablet (20 sources) Mood Stabilizer Start: 025 End: take 1.5 tablets by mouth in the evening Carbamazepine 200 mg tablet Active 200 mg PO .COMPLEX 225 2 December 28, 2024 9:00am 200 mg orally 1 tab in the [...] (20 sources) Serotonin Reuptake Inhibitor Start: 03-14-2020 citalopram (CeleXA) 40 MG tablet 04/11/2022 Active Start: 05-02-2009 End: 02-20-2023 CITALOPRAM 20 MG TAB Take on e tablet daily. 0 05/02/2009 02/20/2023 Discontinued Comment on above: Take one tablet prema y. gabapentin 100 mg oral capsule (17 sources) Anti-epileptic Agent Start: 2022 gabapentin (Neurontin) 100 MG capsule Take 100 mg by mouth in the morning and 100 mg at noon and 100 mg in the evening. 11/06/2022 Active Comment on above: Take 100 mg by mouth three times a day. hydroxychloroquine sulfate 200 mg oral tablet (16 sources) Antimalarial, Antirheumatic Agent Start: 2022 take 1.5 tablets by mouth once daily hydroxychloroquine (Plaquenil) 200 MG tablet Take 1.5 tablets by mouth daily. 11/26/2022 Active Comment on above: Take 1.5 tablets by mouth every afternoon. hydrOXYzine hydrochloride 25 mg oral tablet (20 sources) Antihistamine Start: 2019 take 1 tablet [...] For Anxiety LORazepam 0.5 mg oral tablet (11 sources) Benzodiazepine Start: 01-05-2024 End: 11-04-2024 Lorazepam (Ativan) 0.5 mg tablet Active 0.5 mg PO .PRN November 04, 2024 8:55am anxiety multivitamins(DAILY MULTIVITAMIN TAB) (12 sources) Start: 05-02-2009 multivitamins(DAILY MULTIVITAMIN TAB) Take one tablet daily. 0 05/02/2009 Active Comment on above: Take one tablet prema y. propranolol hydrochloride 20 mg oral tablet (15 sources) beta-Adrenergic Tyler Start: 11-03-2023 propranolol (Inderal) 20 MG tablet 11/03/2023 Active simvastatin 20 mg oral tablet (1 source) HMG-CoA Reductase Inhibitor Start: 12-11-2007 End: 11-15-2021 simvastatin(ZOCOR 20 MG TAB) Take one(1) tablet daily at bedtime. 0 12/11/2007 11/15/2021 Discontinued Comment on above: Take one(1) tablet d aily at bedtime. sodium chloride 1000 mg oral tablet (9 sources) Start: 11-08-2024 sodium chloride 1 g tablet Take 1,000 mg by mouth 3 times daily. 11/08/2024 Active Start: 11-08-2024 End: 12-28-2024 take 1 tablet by mouth once daily Sodium Chloride 1,000 mg tablet,soluble Active 1000 mg PO daily 90 2 December 28, 2024 8:59am electrolyte replenishment traZODone hydrochloride 50 mg oral tablet (20 sources) Serotonin Reuptake Inhibitor Start: 12-28-2024 take 3 tablets by mouth at bedtime Trazodone 50 mg tablet Active 150 mg PO AT BEDTIME December 28, 2024 8:25am Start: 01-05-2024 End: 12-28-2024 take 2 tablets by mouth at bedtime Trazodone 50 mg tablet Discontinued 100 mg PO AT BEDTIME January 05, 2024 12:00am December 28, 2024 8:25am Start: 04-27-2022 traZODone (Jarek yrel) 50 MG [...] Problem Date Documented Date Episodic/Chronic Anxiety disorders (19 sources) Generalized anxiety disorder; Translations: [Generalized anxiety disorder] Onset: 02-20-2023 04-12-2020 Chronic Disorders of lipid metabolism (19 sources) Hyperlipidemia; Translations: [Hyperlipidemia, unspecified] Onset: 07-03-2021 04-11-2020 Chronic Epilepsy; convulsions (20 sources) Epilepsy; Translations: [Epilepsy, unspecified, not intractable, without status epilepticus] Onset: 11-24-2023 04-12-2020 Chronic Comment on above: LAST SEIZURE 10+ YRS AO Genitourinary symptoms and ill-defined conditions (12 sources) Mixed urinary incontinence; Translations: [Mixed incontinence] Onset: 09-13-2010 09-13-2010 Chronic Malaise and fatigue (5 sources) Fatigue; Translations: [Other fatigue] Onset: 12-14-2024 11-04-2024 Episodic Mood disorders (15 sources) Depressive disorder; Translations: [Depression] 04-12-2020 Chronic Nonmalignant breast conditions (5 sources) Mammary duct ectasia of left breast; 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] 12-06-2022 Chronic Nonmalignant breast conditions (3 sources) Pain of breast; Translations: [Mastodynia] Episodic Nonspecific chest pain (15 sources) Chest wall pain; Translations: [Other chest pain] 03-15-2020 Episodic Other and unspecified benign neoplasm (1 source) History of polyp of colon; Translations: [Personal history of colonic polyps] 11-24-2023 Episodic Other congenital anomalies (12 sources) Congenital anomaly of skin; Translations: [Other specified congenital malformations of skin] Onset: 09-17-2007 09-17-2007 Chronic Other screening for suspected conditions (not mental disorders or infectious disease) (15 sources) CT of chest abnormal; Translations: [Abnormal findings on diagnostic imaging of other specified body structures] 04-12-2020 Chronic Other screening for suspected conditions (not mental disorders or infectious disease) (20 sources) Patient encounter status; Translations: [Encounter for screening mammogram for malignant neoplasm of breast] Onset: 03-09-2024 Episodic Other upper respiratory disease (15 sources) Allergic rhinitis; Translations: [Allergic rhinitis, unspecified] 04-12-2020 Chronic Prolapse of female genital organs (20 sources) Midline cystocele; Translations: [Cystocele, midline] Onset: 09-13-2010 09-13-2010 Chronic Residual codes; unclassified (15 sources) Tobacco user; Translations: [Tobacco use] 08-15-2020 Episodic Residual codes; unclassified (5 sources) Family history of breast cancer; Translations: [Family history of malignant neoplasm of breast] 11-12-2022 Episodic Residual codes; unclassified (4 sources) Family history of malignant neoplasm of pancreas; Translations: [Family history of malignant neoplasm of digestive organs] 12-06-2022 Episodic Residual codes; unclassified (2 sources) Family history of prostate cancer; Translations: [Family history of malignant neoplasm of prostate] 12-09-2023 Episodic Residual codes; unclassified (3 sources) Family history of malignant melanoma; Translations: [Family history of malignant neoplasm of other organs or systems] 12-09-2023 Episodic Residual codes; unclassified (2 sources) Family history of cancer of colon; Translations: [...] Spondylosis; intervertebral disc disorders; other back problems (15 sources) Degeneration of cervical intervertebral disc; Translations: [Other cervical disc degeneration, unspecified cervical region] 04-12-2020 Chronic Spondylosis; intervertebral disc disorders; other back problems (15 sources) Cervical radiculopathy; Translations: [Radiculopathy, cervical region] 12-30-2017 Episodic Sprains and strains (15 sources) Strain of neck muscle; Translations: [Strain of muscle, fascia and tendon at neck level, initial encounter] 12-30-2017 Episodic Past or Other Problems Problem Classification Problem Date Documented Da te Episodic/Chronic Other bone disease and musculoskeletal deformities (1 source) Costal chondritis; Translations: [Chondrocostal junction syndrome [Tietze]] Episodic Results Test Name Value Interpretation Reference Range Facility CNOVon 03-08-2025 CNOV Office Visit (OBGYWM ) -- REYMUNDO ALANIS ([id number]) 1965 F Date Time Provider Department 03/08/25 10:00 AM JADE FERGUSON OBGYWM During your visit today, we recorded the following information about you: Blood pressure Weight Height 126/74 70.6 kg 1.55 m Jade Ferguson APRN.MECHANICAL MAINTENANCE WORKER 03/08/2025 10:43 AM Signed Patient declined car tracer. Reymundo is a 60 year old who presents for an annual gynecologic exam without complaints. Postmenopausal: Yes since Hysterectomy, bilateral ovaries are intact. HRT use: No. HPV vaccine: none Last pap smear: 08/20/10, Negative History of abnormal pap: No Last mammogram: 2024 normal History of abnormal mammogram: Yes ,mammary duct ectasia OB History Gravida2 Para2 Term1 Preterm1 AB0 Living3 SAB0 IAB0 Ectopic0 Multiple1 Live Births0 Comment: [employer]. 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 History LMP: 08/19/2010, Hysterectomy Age at Menarche: Age at First : Age at Menopause: 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 History Comments: Sexual Activity: Not Currently; Male; hysterectomy Contraception: Tubal Ligation, Surgical PAST MEDICAL HISTORY Diagnosis Date Anxiety Depression DVT of upper extremity (deep vein thrombosis) [...] status: Former Substance Use Topics Alcohol use: Never Drug use: No REVIEW OF SYSTEMS Abdomen: [...] discussed with the Patient or Patient's Authorized Striper Spray Gun. As applicable, any other physician, advance practice provider, medical student, or other health professional student that will be observing or involved in the sensitive examination for educational or training purposes was discussed with the Patient or Authorized Striper Spray Gun. The Patient or Authorized Striper Spray Gun has agreed to proceed with the sensitive examination. (Sensitive examination includes inspection and/or palpation of the breasts, pelvis, prostate and anorectal regions). EXAM: BP 126/74 Ht 5' 1.024 (1.55m) Wt 155 lb 9.6 oz (70.6kg) LMP 08/19/2010 BMI 29.38 kg/(m2). GENERAL: pleasant, female in no apparent distress HEENT: Normocephalic, atraumatic, mucus membranes moist, and no lesions DERMATOLOGY: Normal, without lesions, non-icteric, and non-hirsute BREAST: soft, non-tender, symmetric, no dominant mass, normal nipple-areolar complex, no lymphadenopathy, and no nipple discharge CHEST: Normal inspiratory effort ABDOMEN: soft, non-tender, and no masses PELVIC: external genitalia normal, normal Bartholin's glands, urethra, [place]'s glands, no vulvar lesions, physiologic discharge present, normal appearing perineal body and perianal region, cervix surgically absent BIMANUAL: no adnexal masses, non-tender, and uterus surgically absent RECTOVAGINAL: deferred. NEURO: alert and oriented x3,exam grossly non-focal (more content not included)... Normal [facility] Neurology Visit Reporton Neurology Visit Report [facility] [address], [address] [place] [address] OFFICE VISIT Date of Service: 12/28/24 MR#: [id number] Acct: [id number] Name: REYMUNDO ALANIS Rep #: [id number] : 1965 Provider: Dr. Ranjith abad MD Age/Sex: 59/F Location: [facility] [place]. Status: Signed HPI HPI Chief Complaint: Establish Care Details: Interim History: Reymundo returns for follow-up visit. She has a history of hypertension, hyperlipidemia, borderline diabetes mellitus, depression, anxiety, and epilepsy. She began to have seizures during childhood. Her seizures began with an aura of a difficult to describe unusual [...] her head and had an associated concussion (with that seizure she was unconscious for several hours). It was then that she was evaluated by a neurologist and was diagnosed with epilepsy and carbamazepine was initiated. She has been on carbamazepine since that time. She does not recall her seizure frequency for the remainder of her teenage years however since the age of 19 she has had about 3 seizures, the last of which occurred around 2019. She has had hyponatremia as a side effect of carbamazepine otherwise she is tolerating the medication well. She was consuming 3 to 4 cups of coffee daily and 6 bottles of water daily. Earlier in 2024 she initiated a daily salt tablet and reduced her water intake to 2-3 bottles per day and reduced her coffee intake to about 3 cups/day. She also consumes 2 bottles of sugar-free Powerade daily. Her last serum sodium (October 2024) was normal. She denies having numbness, weakness, vision change, [...] She does not have any history of TOOL PLANNER infection or significant history. She has depression and anxiety. Her in 2022. She takes citalopram, Abilify, propranolol, buspirone and infrequently uses lorazepam. She takes trazodone for insomnia and this is of benefit. The etiology of her seizures is unknown. Her EEG revealed occasional left temporal sharp waves and left temporal slowing without clinical correlate. Her head MRI revealed minimal bilateral subcortical chronic small vessel ischemic disease otherwise the study was unremarkable. Physical Exam: Neuro: The patient is awake and alert and responds appropriately; speech is fluent; gait is normal; Romberg is negative; no nystagmus; EOMI; no dysmetria Neck: No bruits Heart: Regular rhythm and rate Supplemental Info Hemoglobin A1c (09/09/2022): 5.8 (high) Lipid profile (11/02/2022): HDL 77 (normal), LDL 93 (normal), cholesterol 182 (normal), triglycerides 62 (normal) CMP (06/17/2023): Sodium 129 (low) CBC, CMP (10/01/2024): Hematocrit 36.4 (low) sodium 132 (low) CBC, CMP, thiamine, B12, vitamin D, folate, TSH (11/06/2024): Glucose 108 (high) Carbamazepine level (11/06/2024): 7.8 (in therapeutic range) Bone density test (11/11/2024): Normal EEG (12/17/2024): EEG description: Background: The recording was obtained during awake and drowsy state. In the maximally alert state, a posterior dominant rhythm with a symmetric, reactive, well-modulated 9 Hz with a normal frequency- amplitude gradient. During drowsiness, there was attenuation of the waking background. Activation procedures: Hyperventilation and photic stimulation performed. No abnormal or epileptic activity triggered during. Sporadic epileptiform discharges: There were occasional sharply contoured waves in the left temporal region, but no definite epileptic activity seen. Focal slow activity: Left temporal intermittent slowing of intermixed delta/theta activity underlying background rhythms. There is also generalized intermittent slowing of large amplitude delta activity. Rhythmic or periodic activity: None Seizures: None Patient events: None EEG diagnosis: Abnormal Clinical interpretation: This awake and drowsy EEG is consistent with cerebral dysfunction in the left temporal region. There is also mild diffuse encephalopathy. No seizures were recorded. Head CT (12/17/2024): FINDINGS: Normal cranioc (more content not included)... Normal [facility] Magnetic resonance imaging r eportOrdered By: Akash Brito on 12-18-2024 Study report [facility] Imaging Services [address] [place] [id number] Brain W/WO Contrast MR#: [id number] Acct: [id number] Name: REYMUNDO ALANIS Rep #: [id number] : 1965 F 59 From: Anayeli Brito MD PCP: Dr. Nathanael Frazier MD Status: REG CL I Study:Brain W/WO Contrast Date of Exam: 12/17/24 Exam# [id number] Ordering Dr: Ranjith Lee MD PROCEDURE: BRAIN W/WO CONTRAST 12/17/2024 REASON FOR EXAM: HISTORY OF ATONIC SEIZURES TECHNIQUE: BRAIN W/WO CONTRAST Multiplanar and multisequence images were obtained. CONTRAST: Kallie scan VOLUME: 13 mL FINDINGS: Normal craniocervical junction is noted. There is no pathologic diffusion restriction or hydrocephalus. Normal brainstem and cerebellum. No pathologic flow voids. Symmetric appearance of the orbits. No intra-axial or extra-axial masses. There are few areas of nonspecific punctate subcortical leukomalacia. No acute or chronic hemorrhage. No pathologic enhancement. No temporal lobe asymmetry. No definite hippocampaledema or atrophy. MRI/Brain W/WO Contrast IMPRESSION: Minimal nonspecific subcortical leukomalacia. No other positive findings. Reading [facility] CC: Dr. Nathanael Frazier MD; Dr. Ranjith Lee MD ~ Billing Clerk: Signed [facility] Brain W/WO Contraston 2024 Brain W/WO Contrast [facility] Imaging Services [address] [place], [place] [address] Brain W/WO Contrast MR#: [id number] Acct: [id number] Name: REYMUNDO ALANIS Rep #: [id number] : 1965 F 59 From: Akash Brito MD PCP: Dr. Nathanael Frazier MD Status: REG CLI Study: Brain W/WO Contrast Date of Exam: 12/17/24 Exam# [id number] Ordering Dr: Ranjith Lee MD PROCEDURE: BRAIN W/WO CONTRAST 12/17/2024 REASON FOR EXAM: HISTORY OF ATONIC SEIZURES TECHNIQUE: BRAIN W/WO CONTRAST Multiplanar and multisequence images were obtained. CONTRAST: Kallie scan VOLUME: 13 mL FINDINGS: Normal craniocervical junction is noted. There is no pathologic diffusion restriction or hydrocephalus. Normal brainstem and cerebellum. No pathologic flow voids. Symmetric appearance of the orbits. No intra-axial or extra-axial masses. There are few areas of nonspecific punctate subcortical leukomalacia. No acute or chronic hemorrhage. No pathologic enhancement. No temporal lobe asymmetry. No definite hippocampal edema or atrophy. MRI/Brain W/WO Contrast IMPRESSION: Minimal nonspecific subcortical leukomalacia. No other positive findings. Reading Location: [facility] CC: Dr. Nathanael Frazier MD; Dr. Ranjith Lee MD Billing Clerk: Signed Normal [facility] DBT Breast - bilateral scree ningon 12-10-2024 No mammographic evid ence of malignancy. ASSESSMENT: Category 1 Negative RECOMMENDATION: Routine screening mammogram in 1 year. Bilateral CANCER RISK ASSESSMENT: This risk assessment is based on patient provided information collected in a risk survey taken at the time of this examination. LIFETIME BREAST CANCER RISK: Izzy 8: 13.09% - If greater than or equal to [...] risk based on the Linda Syndrome criteria? Yes - If Yes, consider genetic counseling and testing with high risk follow up. Report Dictated on Electronically Signed By: Sai Harvey MD Electronically Signed Date/Time: 12/10/2024 10:58 AM EDT [facility] [employer] Patient Name: REYMUNDO ALANIS : 1965 Exam Date/Time: 12/10/2024 09:26 Procedure: BI MAMMOGRAM SCREENING TOMOSYNTHESIS BILATERAL Ordering Provider: MARKHAM ELIZABETH Reason For Exam: This exam was performed at [facility] [address] [place] [address] RISK ALERT: The Cancer Risk Assessment scores [...] images: BB's = Nipples; skin lesions [place] = Palpable Line = Scar COMPARISON: 2023; 2022; 2018 TISSUE DENSITY: BIRADS B - There are scattered areas of fibroglandular density. FINDINGS: No suspicious masses, architectural distortions or suspiciously clustered microcalcifications are identified. There are no significant changes when compared with prior studies. [facility] Sai Harvey MD - 12/10/2024 Patient Name: REYMUNDO ALANIS : 1965 Exam Date/Time: 12/10/2024 09:26 Procedure: BI MAMMOGRAM SCREENING TOMOSYNTHESIS BILATERAL Ordering Provider: MARKHAM ELIZABETH Reason For Exam: This exam was performed at [facility] [address] [place] [address] [address] [facility] [address] RISK ALERT: The Cancer Risk Assessment scores [...] images: BB's = Nipples; skin lesions [place] = Palpable Line = Scar COMPARISON: 2023; 2022; 2018 TISSUE DENSITY: BIRADS B - There are scattered areas of fibroglandular density. FINDINGS: No suspicious masses, architectural distortions or suspiciously clustered microcalcifications are identified. There are no significant changes when compared with prior studies. IMPRESSION: No mammographic evidence of malignancy. ASSESSMENT: Category 1 Negative RECOMMENDATION: Routine screening mammogram in 1 year. Bilateral CANCER RISK ASSESSMENT: This risk assessment is based on patient provided information collected in a risk survey taken at the time of this examination. LIFETIME BREAST CANCER RISK: Izzy 8: 13.09% - If greater than or equal to [...] risk based on the Linda Syndrome criteria? Yes - If Yes, consider genetic counseling and testing with high risk follow up. Report Dictated on Electronically Signed By: Sai Harvey MD Electronically Signed Date/Time: 12/10/2024 10:58 AM EDT [facility] Radiology Study observation (narrative) [facility] DBT Breast - bilateral scree ningOrdered By: Sai Harvey on 12-10-2024 [facility] Work Phone: Office Visiton 12-10-2024 Follow-up visit [id number] Reymundo Alanis 1965 F Date Provider Department Center 12/10/2024 [id number] MARKHAM [facility] BRS None Family History Problem Relation [...] Grandmother Maternal Grandfather Mother's Sister Level of Service:46509 CO PREV MED CNSL&/RSK FCTR RDCTJ INDV APPROX 15 MIN Reason for Visit and Comments: 1 Year Follow-up [670] - Patient states both bilateral breast get itchy, but they are not dry. She also states she get pain that comes and goes, but more so in the left breast Normal [facility] Progress Noteon 12-10-2024 Progress Note Chief Complaint Patient presents with 1 Year Follow-up Patient states both bilateral breast get itchy, but they are not dry. She also states she get pain that comes and goes, but more so in the left breast HPI: Reymundo Alanis is a 59 y.o. female who presents for annual clinical breast exam. Breast history: -05/23/2022: LEFT diagnostic mammogram/ultrasound ([facility]) demonstrated retroareolar ductal dilation -06/05/2022: She was seen in the breast center by Dr. Avalos. Repeat diagnostic imaging recommended -06/07/2022: She was seen at the breast center for genetic testing. -06/07/2022: LEFT breast ultrasound here at [facility] demonstrated mildly dilated ducts. The radiologist [...] intermittent bilateral breast pain. -12/09/2023: Screening mammogram negative (BIRADS 1) -12/10/2024: Screening mammogram negative (BIRADS 1) She has no breast history other than what is outlined above. Today, she still notes intermittent bilateral breast pain. She also notes itching bilaterally. We discussed keeping her breast well moisturized with Aquaphor. No additional concerns today. She denies breast mass, skin change, nipple change, nipple discharge. No prior breast biopsy or breast surgery. Her lifetime risk of breast cancer estimated by the Tyrer-Cuzick V8 model is 11.69%. Given her risk score and breast density (BI-RADS B), breast MRI not indicated at this time per NCCN guidelines. She will continue annual mammogram and breast exams. She has a significant family history of cancer. See family history section of this note. She did have [facility] [employer] panel panel genetic testing 05/2022 which was negative for deleterious mutation. Results scanned into media dated 06/25/2022. Risk Factors: Menarche: 11 Age of first : 21; Menopause: Post; she had a hysterectomy in 2011 at the age of 46. She retains her ovaries. Physical Activity: She walks occasionally and is active at work. We discussed the [place] recommends that adults get at least 150 minutes of moderate intensity or 75 minutes of vigorous intensity activity each week Nutrition: She has been trying to follow a healthy diet. We discussed a plant based diet and limiting added hormones in her meat and dairy. Weight: Stable; BMI 28.68 Smoking: She previously quit in 2012. She did resume smoking after the loss of her but has since quit completely. ETOH: None Breast Imaging: Screening mammogram 12/10/2024 TISSUE DENSITY: BIRADS B - There are scattered areas of fibroglandular density. FINDINGS: No suspicious masses, architectural distortions or suspiciously clustered microcalcifications are identified. There are no significant changes when compared with prior studies. IMPRESSION: No mammographic evidence of malignancy. ASSESSMENT: Category 1 Negative RECOMMENDATION: Routine screening mammogram in 1 year. Bilateral Family Cancer history includes: Mother with breast, pancreatic, liver cancer and melanoma age 79 Brother with prostate cancer age 60 Brother with testicular cancer age 53 Maternal grandmother with melanoma and bone cancer age 50 Maternal grandfather with colon cancer age 47 Maternal aunt with pancreatic cancer age 70 Medical History[1] Surgical History[2] Allergies[3] Current Medications[4] Review of Systems: Review of Systems Constitutional: Negative. HENT: Negative. Eyes: Negative. Respiratory: Negative. Cardiovascular: Negative. Gastrointestinal: Negative. Endocrine: Negative. Genitourinary: Negative. Musculoskeletal: Negative. Skin: Negative. Allergic/Immunologic: Negative. Neurological: Negative. Hematological: Negative. Psychiatric/Behavioral: Negative. BP 88/57 (BP Location: Left arm, Patient Position: Sitting) Pulse 72 Temp 36.3 ?C (97.3 ?F) (Temporal) Resp 12 Ht 5' 1 (1.549 m) Wt 151 lb 12.8 oz (68.9 kg) BMI 28.68 kg/m? Physical Exam: Physical Exam Constitutional: General: She is not in acute distress. Appearance: Normal appearance. She is not ill-appearing. HENT: Head: Normocephalic and atraumatic. Pulmonary: Effort: Pulmonary effort is normal. No respiratory distress. Chest: Breasts: Breasts are symmetrical. Right: No inverted nipple, mass, (more content not included)... Normal [facility] Bone density reportOrdered B y: Magno Tubbs on 11-11-2024 Study report Skeletal system DXA [facility] Imaging Services [address] [place], [place] [address] Dexa Bone Density Study MR#: [id number] Acct: [id number] Name: REYMUNDO ALANIS Rep #: [id number] : 1965 F 59 From: Farzaneh Tubbs MD PCP: Dr. Nathanael Frazier MD Status: REG CL I Study:Dexa Bone Density Study Date of Exam: 11/11/24 Exam# [id number] Ordering Dr: Ranjith Lee MD PROCEDURE: DEXA BONE DENSITY STUDY 11/11/2024 REASON FOR EXAM: HISTORY OF MULIPLE FRACTURES F, age 59 y/o . TECHNIQUE: DEXA BONE DENSITY STUDY COMPARISON: None FINDINGS: BMD and T-SCORES Lumbar spine: 1.147 g/cm2, T-score 0.9 Levels: L1 through L4 Left femoral neck: 0.805 g/cm2, T-score -0.4 Femoral neck comparison data not recommended for monitoring change. Left total hip: 0.992 g/cm2, T-score 0.4 Right femoral neck: 0.836 g/cm2, T-score -0.1 Femoral neck comparison data not recommended for monitoring change. Right total hip: 0.991 g/cm2, T-score 0.4 The World Health Organization has defined the following categories based on bonedensity: Normal bone density: T-score equal to or greater than -1.0 Osteopenia: T-score between -1.0 and -2.5 Osteoporosis: T-score equal to or less than -2.5 BD/Dexa Bone Density Study IMPRESSION: Normal bone mineral density. Reading Location: [id number] CC: Dr. Nathanael Frazier MD; Dr. Ranjith Lee MD ~ Billing Clerk: Signed [facility] Dexa Bone Density Studyon Dexa Bone Density Study [facility] Imaging Services [address] [place], [place] [id number] Dexa Bone Density Study MR#: [id number] Acct: [id number] Name: REYMUNDO ALANIS Rep #: [id number] : 1965 F 59 From: Magno Tubbs MD PCP: Dr. Nathanael Frazier MD Status: [facility] CLI Study: Dexa Bone Density Study Date of Exam: 11/11/24 Exam# [id number] Ordering Dr: Ranjith Lee MD PROCEDURE: DEXA BONE DENSITY STUDY 11/11/2024 REASON FOR EXAM: HISTORY OF MULIPLE FRACTURES F, age 59 y/o . TECHNIQUE: DEXA BONE DENSITY STUDY COMPARISON: None FINDINGS: BMD and T-SCORES Lumbar spine: 1.147 g/cm2, T-score 0.9 Levels: L1 through L4 Left femoral neck: 0.805 g/cm2, T-score -0.4 Femoral neck comparison data not recommended for monitoring change. Left total hip: 0.992 g/cm2, T-score 0.4 Right femoral neck: 0.836 g/cm2, T-score -0.1 Femoral neck comparison data not recommended for monitoring change. Right total hip: 0.991 g/cm2, T-score 0.4 The World Health Organization has defined the following categories based on bone density: Normal bone density: T-score equal to or greater than -1.0 Osteopenia: T-score between -1.0 and -2.5 Osteoporosis: T-score equal to or less than -2.5 BD/Dexa Bone Density Study IMPRESSION: Normal bone mineral density. Reading Location: OFI-EEDPVLYER-T CC: Dr. Nathanael Frazier MD; Dr. Ranjith Lee MD Billing Clerk: Signed Normal [facility] Folates, RBCon 11-09-2024 Fol.,Hemolysate 364.0 ng/mL Normal Not Estab. [facility] Comment on above: Order Comment: Test( s) [id number]-Wxk. B1, Whole Bloodwas developed and its performance characteristicsdetermined by [employer]. It has not been cleared or approvedby the Food and Drug Administration. Performed By: #### L 100.0500, L503.0106, L3300.0960, L501.7900, L3300.8000, L500.4050, L501.9520, L3100.1725 ####[facility] [address] [place], [place], [id number] Folate, RBC 908 ng/mL Normal >[address] [facility] Comment on above: Order Comment: Test( s) [id number]-Ksk. B1, Whole Bloodwas developed and its performance characteristicsdetermined by [employer]. It has not been cleared or approvedby the Food and Drug Administration. Performed By: #### L 100.0500, L503.0106, L3300.0960, L501.7900, L3300.8000, L500.4050, L501.9520, L3100.1725 ####[facility] [address] [place], [place], [id number] Hematocrit (Bld) [Volume fraction] 40.1 % Normal 34.0-46.[address] [facility] Comment on above: Order Comment: Test( s) 269596-Idi. B1, Whole Bloodwas developed and its performance characteristicsdetermined by [employer]. It has not been cleared or approvedby the Food and Drug Administration. Performed By: #### L 100.0500, L503.0106, L3300.0960, L501.7900, L3300.8000, L500.4050, L501.9520, L3100.1725 ####[facility] [address] [place], [address] Vitamin B1, Thiamineon 11-09 VIT B1 THIAMINE 82.5 nmol/L Normal 66.5-200.[address] [facility] Comment on above: Order Comment: Test( s) 671619-Fit. B1, Whole Bloodwas developed and its performance characteristicsdetermined by [employer]. It has not been cleared or approvedby the Food and Drug Administration. Result Comment: Perf ormed at: [address] [id number] Accuracy Expert: Patrick Auguste PhD, Phone: [phone] Performed at: [address] [id number] Accuracy Expert: Uyen Lomax MD, Phone: [phone] Performed By: #### L 100.0500, L503.0106, L3300.0960, L501.7900, L3300.8000, L500.4050, L501.9520, L3100.1725 ####[facility] [address] [place], [place], [phone] Vitamin D 1,25-Dihydroxyon 0 11-09-2024 VIT D 1,25 DIHY 45.8 pg/mL Normal 24.8-81.[address] [facility] Comment on above: Result Comment: Perf ormed at: [facility] - [facility] [address] [id number] Accuracy Expert: Uyen Lomax MD, Phone: [phone] Performed By: #### L 100.0500, L503.0106, L3300.0960, L501.7900, L3300.8000, L500.4050, L501.9520, L3100.1725 ####[facility] [address] [place], [place], [id number] Anion gap in Serum or Plasma Ordered By: Ranjith Lee on 11-06-2024 Anion gap [Moles/Vol] 11 mmol/L 5-15 [facility] BUN/creatinine ratioOrdered By: Ranjith Lee on 11-06-2024 Urea nitrogen/Creatinine [Mass ratio] 12.7 mg/mg 10-[address] [facility] Bilirubin, totalOrdered By: Ranjith Lee on 11-06-2024 Bilirubin [Mass/Vol] 0.20 mg/dL 0.00-1.30 [facility] CBC-Complete Blood Cnt No Di ffon 11-06-2024 Erythrocyte distribution width (RBC) [Ratio] 12.0 % Normal 11.6-14.[address] [facility] Comment on above: Performed By: #### L 100.0500, L503.0106, L3300.0960, L501.7900, L3300.8000, L500.4050, L501.9520, L3100.1725 #### [facility] [address] [place], [place], [id number] Hematocrit (Bld) [Volume fraction] 37.4 % Normal 37-[address] [facility] Comment on above: Performed By: #### L 100.0500, L503.0106, L3300.0960, L501.7900, L3300.8000, L500.4050, L501.9520, L3100.1725 #### [facility] [address] [place], [place], [phone] (420) Hemoglobin (Bld) [Mass/Vol] 13.1 g/dL Normal 12.0-15.[address] [facility] Comment on above: Performed By: #### L 100.0500, L503.0106, L3300.0960, L501.7900, L3300.8000, L500.4050, L501.9520, L3100.1725 #### [facility] [address] [place], [address] MCH (RBC) [Entitic mass] 32.4 pg High 27.0-32.[address] [facility] Comment on above: Performed By: #### L 100.0500, L503.0106, L3300.0960, L501.7900, L3300.8000, L500.4050, L501.9520, L3100.1725 #### [facility] [address] [place], [address] MCHC (RBC) [Mass/Vol] 35.0 g/dL Normal 32-36 [facility] Comment on above: Performed By: #### L 100.0500, L503.0106, L3300.0960, L501.7900, L3300.8000, L500.4050, L501.9520, L3100.1725 #### [facility] [address] [place], [address] MCV (RBC) [Entitic vol] 92.6 fL Normal 81-[address] [facility] Comment on above: Performed By: #### L 100.0500, L503.0106, L3300.0960, L501.7900, L3300.8000, L500.4050, L501.9520, L3100.1725 #### [facility] [address] [place], [address] Platelet mean volume (Bld) [Entitic vol] 8.9 fL Normal 6.2-12.[address] [facility] Comment on above: Performed By: #### L 100.0500, L503.0106, L3300.0960, L501.7900, L3300.8000, L500.4050, L501.9520, L3100.1725 #### [facility] [address] [place], [address] Platelets (Bld) [#/Vol] 327 10*3/uL Normal 150-[address] [facility] Comment on above: Performed By: #### L 100.0500, L503.0106, L3300.0960, L501.7900, L3300.8000, L500.4050, L501.9520, L3100.1725 #### [facility] [address] [place], [address] RBC (Bld) [#/Vol] 4.04 10*6/uL Low 4.2-5.4 [facility] Comment on above: Performed By: #### L 100.0500, L503.0106, L3300.0960, L501.7900, L3300.8000, L500.4050, L501.9520, L3100.1725 #### [facility] [address] [place], [address] RDW SD 41.1 fl Normal 35.1-43.[address] [facility] Comment on above: Performed By: #### L 100.0500, L503.0106, L3300.0960, L501.7900, L3300.8000, L500.4050, L501.9520, L3100.1725 #### [facility] [address] [place], [address] WBC (Bld) [#/Vol] 4.5 10*3/uL Normal 4.4-11.0 [facility] Comment on above: Performed By: #### L 100.0500, L503.0106, L3300.0960, L501.7900, L3300.8000, L500.4050, L501.9520, L3100.1725 #### [facility] [address] [place], [address] Carbamazepine (Tegretol)on 0 11-06-2024 CARBAMAZEPINE 7.8 ug/mL Normal 4.0-12.[address] [facility] Comment on above: Performed By: #### L 100.0500, L503.0106, L3300.0960, L501.7900, L3300.8000, L500.4050, L501.9520, L3100.1725 #### [facility] [address] [place], [address] Carbon dioxide, total [Moles /volume] in Central venous bloodOrdered By: Ranjith Lee on 11-06-2024 CO2 [Moles/Vol] 25.5 mmol/L 21.0-32.[address] [facility] Chloride assayOrdered By: Ra javier Lee on 11-06-2024 Chloride [Moles/Vol] 99 mmol/L 98-108 [facility] Comprehensive Metabolic Prof ilon 11-06-2024 Albumin [Mass/Vol] 4.3 g/dL Normal 3.4-4.8 [facility] Comment on above: Performed By: #### L 100.0500, L503.0106, L3300.0960, L501.7900, L3300.8000, L500.4050, L501.9520, L3100.1725 ####[facility] [address] [place], [address] Albumin/Globulin [Mass ratio] 1.7 {ratio} Normal 0.9-2.[address] [facility] Comment on above: Performed By: #### L 100.0500, L503.0106, L3300.0960, L501.7900, L3300.8000, L500.4050, L501.9520, L3100.1725 ####[facility] [address] [place], [address] ALK PHOS 94 U/L Normal 35-[address] [facility] Comment on above: Performed By: #### L 100.0500, L503.0106, L3300.0960, L501.7900, L3300.8000, L500.4050, L501.9520, L3100.1725 ####[facility] [address] [place], [address] ALT [Catalytic activity/Vol] 23 U/L Normal <=[address] [facility] Comment on above: Performed By: #### L 100.0500, L503.0106, L3300.0960, L501.7900, L3300.8000, L500.4050, L501.9520, L3100.1725 ####[facility] [address] [place], [address] AST [Catalytic activity/Vol] 26 U/L Normal <=[address] [facility] Comment on above: Performed By: #### L 100.0500, L503.0106, L3300.0960, L501.7900, L3300.8000, L500.4050, L501.9520, L3100.1725 ####[facility] [address] [place], [address] Bilirubin [Mass/Vol] 0.20 mg/dL Normal 0.00-1.30 [facility] Comment on above: Performed By: #### L 100.0500, L503.0106, L3300.0960, L501.7900, L3300.8000, L500.4050, L501.9520, L3100.1725 ####[facility] [address] [place], [address] BUN/CRE 12.7 RATIO Normal 10-[address] [facility] Comment on above: Performed By: #### L 100.0500, L503.0106, L3300.0960, L501.7900, L3300.8000, L500.4050, L501.9520, L3100.1725 ####[facility] [address] [place], [address] Calcium [Mass/Vol] 9.2 mg/dL Normal 7.6-11.0 [facility] Comment on above: Performed By: #### L 100.0500, L503.0106, L3300.0960, L501.7900, L3300.8000, L500.4050, L501.9520, L3100.1725 ####[facility] [address] [place], [address] Chloride [Moles/Vol] 99 mmol/L Normal 98-108 [facility] Comment on above: Performed By: #### L 100.0500, L503.0106, L3300.0960, L501.7900, L3300.8000, L500.4050, L501.9520, L3100.1725 ####[facility] [address] [place], [address] CO2 [Moles/Vol] 25.5 mmol/L Normal 21.0-32.[address] [facility] Comment on above: Performed By: #### L 100.0500, L503.0106, L3300.0960, L501.7900, L3300.8000, L500.4050, L501.9520, L3100.1725 ####[facility] [address] [place], [address] Creatinine [Mass/Vol] 0.56 mg/dL Low 0.70-1.20 [facility] Comment on above: Performed By: #### L 100.0500, L503.0106, L3300.0960, L501.7900, L3300.8000, L500.4050, L501.9520, L3100.1725 ####[facility] [address] [place], [address] GAP 11 Normal 5-[address] [facility] Comment on above: Performed By: #### L 100.0500, L503.0106, L3300.0960, L501.7900, L3300.8000, L500.4050, L501.9520, L3100.1725 ####[facility] [address] [place], [address] GFR/1.73 sq M.predicted among non-blacks MDRD (S/P/Bld) [Vol rate/Area] 104 mL/min/{1.73_m2} Normal >[address] [facility] Comment on above: Result Comment: mL/m in/1.73m2 CKD-EPI Creatinine Equation (2020) Performed By: #### L 100.0500, L503.0106, L3300.0960, L501.7900, L3300.8000, L500.4050, L501.9520, L3100.1725 ####[facility] [address] [place], [address] Globulin (S) [Mass/Vol] 2.6 g/dL Normal 2.2-4.[address] [facility] Comment on above: Performed By: #### L 100.0500, L503.0106, L3300.0960, L501.7900, L3300.8000, L500.4050, L501.9520, L3100.1725 ####[facility] [address] [place], [address] Glucose [Mass/Vol] 108 mg/dL High 70-99 [facility] Comment on above: Performed By: #### L 100.0500, L503.0106, L3300.0960, L501.7900, L3300.8000, L500.4050, L501.9520, L3100.1725 ####[facility] [address] [place], [address] Potassium [Moles/Vol] 4.6 mmol/L Normal 3.3-5.1 [facility] Comment on above: Performed By: #### L 100.0500, L503.0106, L3300.0960, L501.7900, L3300.8000, L500.4050, L501.9520, L3100.1725 ####[facility] [address] [place], [address] Sodium [Moles/Vol] 136 mmol/L Normal 133-145 [facility] Comment on above: Performed By: #### L 100.0500, L503.0106, L3300.0960, L501.7900, L3300.8000, L500.4050, L501.9520, L3100.1725 ####[facility] [address] [place], [address] T PROT 6.9 g/dL Normal 5.9-8.[address] [facility] Comment on above: Performed By: #### L 100.0500, L503.0106, L3300.0960, L501.7900, L3300.8000, L500.4050, L501.9520, L3100.1725 ####[facility] [address] [place], [address] Urea nitrogen [Mass/Vol] 7 mg/dL Normal 4-[address] [facility] Comment on above: Performed By: #### L 100.0500, L503.0106, L3300.0960, L501.7900, L3300.8000, L500.4050, L501.9520, L3100.1725 ####[facility] [address] [place], [address] Erythrocyte distribution wid th ratioOrdered By: Ranjith Lee on 11-06-2024 Erythrocyte distribution width (RBC) [Ratio] 12.0 % 11.6-14.[address] [facility] Erythrocyte distribution wid th standard deviationOrdered By: Ranjith Lee on 11-06-2024 Erythrocyte distribution width (RBC) [Ratio] 41.1 fl 35.1-43.[address] [facility] Erythrocyte folate measureme nt with hematocritOrdered By: Ranjith Lee on 11-06-2024 Hematocrit (Bld) [Volume fraction] 40.1 % 34.0-46.[address] [facility] Glomerular filtration rate ( GFR) estimation/1.73 sq m using serum, plasma, or whole bOrdered By: Ranjith Lee on 11-06-2024 GFR/1.73 sq M.predicted among non-blacks MDRD (S/P/Bld) [Vol rate/Area] 104 mL/min/{1.73_m2} >[address] [facility] Comment on above: mL/min/1.73m2 CKD-EP I Creatinine Equation (2020) Hematocrit Auto (Bld) [Volum e fraction]Ordered By: Ranjith Lee on 11-06-2024 Hematocrit (Bld) [Volume fraction] 37.4 % 37-[address] [facility] Hemoglobin measurementOrdere d By: Ranjith Lee on 11-06-2024 Hemoglobin (Bld) [Mass/Vol] 13.1 g/dL 12.0-15.[address] [facility] - Chemistry and C hemistry - challengeOrdered By: Ranjith Lee on 11-06-2024 AST [Catalytic activity/Vol] 26 U/L <[address] [facility] MCV (mean corpuscular volume ) determinationOrdered By: Ranjith Lee on 11-06-2024 MCV (RBC) [Entitic vol] 92.6 fL 81-[address] [facility] Mean corpuscular hemoglobin (MCH) determinationOrdered By: Ranjith Lee 11-06-2024 MCH (RBC) [Entitic mass] 32.4 pg High 27.0-32.[address] [facility] Mean corpuscular hemoglobin concentration (MCHC) determinationOrdered By: Ranjith Lee on 11-06-2024 MCHC (RBC) [Mass/Vol] 35.0 g/dL 32-36 [facility] Mean platelet volume determi nationOrdered By: Ranjith Lee 11-06-2024 Platelet mean volume (Bld) [Entitic vol] 8.9 fL 6.2-12.[address] [facility] Platelet countOrdered By: Ra javier Lee on 11-06-2024 Platelets (Bld) [#/Vol] 327 10*3/uL 150-[address] [facility] Potassium measurement (mass/ volume)Ordered By: Ranjith Lee on 11-06-2024 Potassium (Unsp spec) [Mass/Vol] 4.6 mmol/L 3.3-5.[address] [facility] RBC Auto (Bld) [#/Vol]Ordere d By: Ranjith Lee on 11-06-2024 RBC (Bld) [#/Vol] 4.04 10*6/uL Low 4.2-5.4 [facility] Serum creatinine measurement (mass/volume)Ordered By: Ranjith Lee on 11-06-2024 Creatinine [Mass/Vol] 0.56 mg/dL Low 0.70-1.20 [facility] Serum globulin measurementOr dered By: Ranjith Lee on 11-06-2024 Globulin (S) [Mass/Vol] 2.6 g/dL 2.2-4.[address] [facility] Serum glucose measurement (m ass/volume)Ordered By: Ranjith Lee on 11-06-2024 Glucose [Mass/Vol] 108 mg/dL High 70-99 [facility] Serum or plasma alanine ndiaye otransferase (ALT) measurementOrdered By: Ranjith Lee on 11-06-2024 ALT [Catalytic activity/Vol] 23 U/L <[address] [facility] Serum or plasma albumin marco urement (mass/volume)Ordered By: Ranjith Lee on 11-06-2024 Albumin [Mass/Vol] 4.3 g/dL 3.4-4.8 [facility] Serum or plasma albumin/glob ulin mass ratioOrdered By: Ranjith Lee 11-06-2024 Albumin/Globulin [Mass ratio] 1.7 {ratio} 0.9-2.[address] [facility] Serum or plasma alkaline farida sphatase measurementOrdered By: Ranjith Lee on 11-06-2024 ALP [Catalytic activity/Vol] 94 U/L 35-[address] [facility] Serum or plasma calcitriol m easurement (mass/volume)Ordered By: Ranjith Lee on 11-06-2024 1,25-dihydroxyvitamin D3 [Mass/Vol] 45.8 pg/mL 24.8-81.[address] [facility] Comment on above: Performed at: [address] [id number] Director: Uyen Lomax MD, Phone: [phone] Serum or plasma calcium marco urement (mass/volume)Ordered By: Ranjith Lee on 11-06-2024 Calcium [Mass/Vol] 9.2 mg/dL 7.6-11.0 [facility] Serum or plasma carbamazepin e level (mass/volume)Ordered By: Ranjith Lee on 11-06-2024 carBAMazepine [Mass/Vol] 7.8 ug/mL 4.0-12.[address] [facility] Serum or plasma thiamine mark surement (mass/volume)Ordered By: Ranjith Lee on 11-06-2024 Thiamine [Mass/Vol] 82.5 nmol/L 66.5-200.0 [facility] Comment on above: Performed at: [address] [id number] Director: Patrick Auguste PhD, Phone: [phone] at: [facility] [address] [id number] Director: Uyen Lomax MD, Phone: [phone] Serum or plasma urea nitroge n measurement (mass/volume)Ordered By: Ranjith Lee on 11-06-2024 Urea nitrogen [Mass/Vol] 7 mg/dL 4-[address] [facility] Sodium levelOrdered By: Anthony Lee on 11-06-2024 Sodium [Moles/Vol] 136 mmol/L 133-145 [facility] TSH DL <= 0.005 mIU/L QnOrde red By: Ranjith Lee on 11-06-2024 TSH Qn 1.710 uIU/mL 0.300-4.[address] [facility] Thyroid Stim Hormone (TSH)on 11-06-2024 TSH 1.710 uIU/mL Normal 0.300-4.[address] [facility] Comment on above: Performed By: #### L 100.0500, L503.0106, L3300.0960, L501.7900, L3300.8000, L500.4050, L501.9520, L3100.1725 ####[facility] [address] [place], [place], [address] Total proteinOrdered By: Corky Lee on 11-06-2024 Protein [Mass/Vol] 6.9 g/dL 5.9-8.4 [facility] Vitamin B12on 11-06-2024 Cobalamin (Vitamin B12) [Mass/Vol] 477 pg/mL Normal 180-[address] [facility] Comment on above: Performed By: #### L 100.0500, L503.0106, L3300.0960, L501.7900, L3300.8000, L500.4050, L501.9520, L3100.1725 ####[facility] [id number] [place], [place], [id number] Vitamin B12 ser/plasOrdered By: Ranjith Lee on 11-06-2024 Cobalamin (Vitamin B12) [Mass/Vol] 477 pg/mL 180-[address] [facility] White blood cell (WBC) count Ordered By: Ranjith Lee on 11-06-2024 WBC (Bld) [#/Vol] 4.5 10*3/uL 4.4-11.0 [facility] Neurology Visit Reporton Neurology Visit Report [facility] [address], [address] [place], [place] [address] OFFICE VISIT Date of Service: 11/04/24 MR#: [id number] Acct: [id number] Name: REYMUNDO ALANIS Aaron Rep #: [id number] : 1965 Provider: Dr. Ranjith abad MD Age/Sex: 59/F Location: [facility] Status: Signed 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 She has depression [...] (10/01/2024): Hematoc (more content not included)... Normal [facility] Absolute lymphocyte countOrd ered By: Mary Ann Vazquez on 10-01-2024 Lymphocytes Auto (Unsp spec) [#/Vol] 2.72 10*3/uL 0.83-4.[address] [facility] Absolute neutrophil countOrd ered By: Mary Ann Vazquez on 10-01-2024 Neutrophils (Bld) [#/Vol] 5.0 10*3/uL 2.0-7.[address] [facility] Anion gap in Serum or Plasma Ordered By: Mary Ann Vazquez on 10-01-2024 Anion gap [Moles/Vol] 12 mmol/L 09-09 [facility] Automated lymphocyte count a s percentage of total leukocytesOrdered By: Mary Ann Vazquez on 10-01-2024 Lymphocytes/100 WBC Auto (Unsp spec) 32.2 % 19-[address] [facility] BUN/creatinine ratioOrdered By: Mary Annjun Vazquez on 10-01-2024 Urea nitrogen/Creatinine [Mass ratio] 16.6 mg/mg 10-[address] [facility] Basophil percentageOrdered B y: Mary Ann Vazquez on 10-01-2024 Basophils/100 WBC (Bld) 0.7 % 0-[address] [facility] Bilirubin, totalOrdered By: Marya Nnjun Vazquez on 10-01-2024 Bilirubin [Mass/Vol] mg/dL 0.00-1.30 [facility] CBC W/Diff, Automatedon Absolute Lymph 2.72 X10 3/uL Normal 0.83-4.[address] [facility] Comment on above: Performed By: #### L 500.4050, L100.0100 #### [facility] [address] [place], [address] Absolute Neut 5.0 X10 3/uL Normal 2.0-7.[address] [facility] Comment on above: Performed By: #### L 500.4050, L100.0100 #### [facility] [address] [place], [address] Basophils/100 WBC (Bld) 0.7 % Normal 0-[address] [facility] Comment on above: Performed By: #### L 500.4050, L100.0100 #### [facility] [address] [place], [address] Eosinophils/100 WBC (Bld) 0.9 % Normal 0-[address] [facility] Comment on above: Performed By: #### L 500.4050, L100.0100 #### [facility] [address] [place], [address] Erythrocyte distribution width (RBC) [Ratio] 12.3 % Normal 11.6-14.[address] [facility] Comment on above: Performed By: #### L 500.4050, L100.0100 #### [facility] [address] [place], [address] Hematocrit (Bld) [Volume fraction] 36.4 % Low 37-[address] [facility] Comment on above: Performed By: #### L 500.4050, L100.0100 #### [facility] [address] [place], [address] Hemoglobin (Bld) [Mass/Vol] 12.7 g/dL Normal 12.0-15.[address] [facility] Comment on above: Performed By: #### L 500.4050, L100.0100 #### [facility] [address] [place], [address] IG% 0.400 Normal 0.0-0.[address] [facility] Comment on above: Result Comment: IG% - Immature Granulocytes (promyelocytes, myelocytes and metamyelocytes) > 1% indicates that a LEFT SHIFT is Present. Performed By: #### L 500.4050, L100.0100 #### [facility] [address] [place], [address] Lymphocytes/100 WBC (Bld) 32.2 % Normal 19-[address] [facility] Comment on above: Performed By: #### L 500.4050, L100.0100 #### [facility] [address] [place], [address] MCH (RBC) [Entitic mass] 32.9 pg High 27.0-32.[address] [facility] Comment on above: Performed By: #### L 500.4050, L100.0100 #### [facility] [address] [place], [address] MCHC (RBC) [Mass/Vol] 34.9 g/dL Normal 32-36 [facility] Comment on above: Performed By: #### L 500.4050, L100.0100 #### [facility] [address] [place], [address] MCV (RBC) [Entitic vol] 94.3 fL Normal 81-[address] [facility] Comment on above: Performed By: #### L 500.4050, L100.0100 #### [facility] [address] [place], [address] Monocytes/100 WBC (Bld) 6.4 % Normal 0-[address] [facility] Comment on above: Performed By: #### L 500.4050, L100.0100 #### [facility] [address] [place], [address] Neutrophils/100 WBC (Bld) 59.4 % Normal 47-[address] [facility] Comment on above: Performed By: #### L 500.4050, L100.0100 #### [facility] [address] [place], [address] Nucleated RBC (Bld) [#/Vol] 0 10*3/uL Normal 0-[address] [facility] Comment on above: Performed By: #### L 500.4050, L100.0100 #### [facility] [address] [place], [address] Platelet mean volume (Bld) [Entitic vol] 9.8 fL Normal 6.2-12.[address] [facility] Comment on above: Performed By: #### L 500.4050, L100.0100 #### [facility] [address] [place], [address] Platelets (Bld) [#/Vol] 296 10*3/uL Normal 150-[address] [facility] Comment on above: Performed By: #### L 500.4050, L100.0100 #### [facility] [address] [place], [address] RBC (Bld) [#/Vol] 3.86 10*6/uL Low 4.2-5.4 [facility] Comment on above: Performed By: #### L 500.4050, L100.0100 #### [facility] [address] [place], [address] RDW SD 42.7 fl Normal 35.1-43.[address] [facility] Comment on above: Performed By: #### L 500.4050, L100.0100 #### [facility] [address] [place], [address] WBC (Bld) [#/Vol] 8.4 10*3/uL Normal 4.4-11.0 [facility] Comment on above: Performed By: #### L 500.4050, L100.0100 #### [facility] [address] [place], [address] Carbon dioxide, total [Moles /volume] in Central venous bloodOrdered By: Mary Ann Vazquez on 10-01-2024 CO2 [Moles/Vol] 22.6 mmol/L 21.0-32.[address] [facility] Chloride assayOrdered By: Gonsalo Vazquez on 10-01-2024 Chloride [Moles/Vol] 97 mmol/L Low 98-108 [facility] Comprehensive Metabolic Prof ilon 10-01-2024 Albumin [Mass/Vol] 4.2 g/dL Normal 3.4-4.8 [facility] Comment on above: Performed By: #### L 500.4050, L100.0100 #### [facility] [address] [place], [address] Albumin/Globulin [Mass ratio] 1.6 {ratio} Normal 0.9-2.[address] [facility] Comment on above: Performed By: #### L 500.4050, L100.0100 #### [facility] [address] [place], [address] ALK PHOS 86 U/L Normal 35-[address] [facility] Comment on above: Performed By: #### L 500.4050, L100.0100 #### [facility] [address] [place], [address] ALT [Catalytic activity/Vol] 24 U/L Normal <=[address] [facility] Comment on above: Performed By: #### L 500.4050, L100.0100 #### [facility] [address] [place], [address] AST [Catalytic activity/Vol] 27 U/L Normal <=[address] [facility] Comment on above: Performed By: #### L 500.4050, L100.0100 #### [facility] [address] [place], [address] BUN/CRE 16.6 RATIO Normal 10-[address] [facility] Comment on above: Performed By: #### L 500.4050, L100.0100 #### [facility] [address] [place], [address] Calcium [Mass/Vol] 9.0 mg/dL Normal 7.6-11.0 [facility] Comment on above: Performed By: #### L 500.4050, L100.0100 #### [facility] [address] [place], [address] Chloride [Moles/Vol] 97 mmol/L Low 98-108 [facility] Comment on above: Performed By: #### L 500.4050, L100.0100 #### [facility] [address] [place], [address] CO2 [Moles/Vol] 22.6 mmol/L Normal 21.0-32.[address] [facility] Comment on above: Performed By: #### L 500.4050, L100.0100 #### [facility] [address] [place], [address] Creatinine [Mass/Vol] 0.52 mg/dL Low 0.70-1.20 [facility] Comment on above: Performed By: #### L 500.4050, L100.0100 #### [facility] [address] [place], [address] GAP 12 Normal 5-[address] [facility] Comment on above: Performed By: #### L 500.4050, L100.0100 #### [facility] [address] [place], [address] GFR/1.73 sq M.predicted among non-blacks MDRD (S/P/Bld) [Vol rate/Area] 106 mL/min/{1.73_m2} Normal >[address] [facility] Comment on above: Result Comment: mL/m in/1.73m2 CKD-EPI Creatinine Equation (2020) Performed By: #### L 500.4050, L100.0100 #### [facility] [address] [place], [address] Globulin (S) [Mass/Vol] 2.6 g/dL Normal 2.2-4.[address] [facility] Comment on above: Performed By: #### L 500.4050, L100.0100 #### [facility] [address] [place], [address] Glucose [Mass/Vol] 94 mg/dL Normal 70-99 [facility] Comment on above: Performed By: #### L 500.4050, L100.0100 #### [facility] [address] [place], [address] Potassium [Moles/Vol] 4.0 mmol/L Normal 3.3-5.1 [facility] Comment on above: Performed By: #### L 500.4050, L100.0100 #### [facility] [address] [place], [address] Sodium [Moles/Vol] 132 mmol/L Low 133-145 [facility] Comment on above: Performed By: #### L 500.4050, L100.0100 #### [facility] [address] [place], [address] T BILI < 0.15 Normal 0.00-1.[address] [facility] Comment on above: Performed By: #### L 500.4050, L100.0100 #### [facility] [address] [place], [address] T PROT 6.8 g/dL Normal 5.9-8.[address] [facility] Comment on above: Performed By: #### L 500.4050, L100.0100 #### [facility] [address] [place], [address] Urea nitrogen [Mass/Vol] 9 mg/dL Normal 4-[address] [facility] Comment on above: Performed By: #### L 500.4050, L100.0100 #### [facility] [address] [place], [address] Eosinophil percentageOrdered By: Mary Ann Vazquez on 10-01-2024 Eosinophils/100 WBC (Bld) 0.9 % 0-[address] [facility] Erythrocyte distribution wid th ratioOrdered By: Mary Ann Vazquez on 10-01-2024 Erythrocyte distribution width (RBC) [Ratio] 12.3 % 11.6-14.[address] [facility] Erythrocyte distribution wid th standard deviationOrdered By: Mary Ann Vazquez on 10-01-2024 Erythrocyte distribution width (RBC) [Ratio] 42.7 fl 35.1-43.[address] [facility] Glomerular filtration rate ( GFR) estimation/1.73 sq m using serum, plasma, or whole bOrdered By: Mary Ann Vazquez on 10-01-2024 GFR/1.73 sq M.predicted among non-blacks MDRD (S/P/Bld) [Vol rate/Area] 106 mL/min/{1.73_m2} >[address] [facility] Comment on above: mL/min/1.73m2 CKD-EP I Creatinine Equation (2020) Hematocrit Auto (Bld) [Volum e fraction]Ordered By: Mary Ann Vazquez on 10-01-2024 Hematocrit (Bld) [Volume fraction] 36.4 % Low 37-[address] [facility] Hemoglobin measurementOrdere d By: Mary Ann Vazquez on 10-01-2024 Hemoglobin (Bld) [Mass/Vol] 12.7 g/dL 12.0-15.[address] [facility] Immature granulocytes/100 WB C Auto (Bld)Ordered By: Mary Ann Vazquez on 10-01-2024 Immature granulocytes/100 WBC (Bld) 0.400 % 0.0-0.[address] [facility] Comment on above: IG% - Immature Granu locytes (promyelocytes, myelocytes and metamyelocytes) > 1% indicates that a LEFT SHIFT is Present. Laboratory - Chemistry and C hemistry - challengeOrdered By: Mary Ann Vazquez on 10-01-2024 AST [Catalytic activity/Vol] 27 U/L <[address] [facility] MCV (mean corpuscular volume ) determinationOrdered By: Mary Ann Vazquez on 10-01-2024 MCV (RBC) [Entitic vol] 94.3 fL 81-[address] [facility] Mean corpuscular hemoglobin (MCH) determinationOrdered By: Mary Ann Vazquez on 10-01-2024 MCH (RBC) [Entitic mass] 32.9 pg High 27.0-32.[address] [facility] Mean corpuscular hemoglobin concentration (MCHC) determinationOrdered By: Mary Ann Vazquez on 10-01-2024 MCHC (RBC) [Mass/Vol] 34.9 g/dL 32-36 [facility] Mean platelet volume determi nationOrdered By: Mary Ann Vazquez on 10-01-2024 Platelet mean volume (Bld) [Entitic vol] 9.8 fL 6.2-12.[address] [facility] Monocyte percentageOrdered B y: Mary Ann Vazquez on 10-01-2024 Monocytes/100 WBC (Bld) 6.4 % 0-[address] [facility] Neutrophil percentageOrdered By: Mary Ann Vazquez on 10-01-2024 Neutrophils/100 WBC (Bld) 59.4 % 47-[address] [facility] Nucleated red blood cell per centageOrdered By: Mary Ann Vazquez on 10-01-2024 Nucleated RBC/100 WBC (Bld) [Ratio] 0 % 0-[address] [facility] Platelet countOrdered By: Gonsalo Vazquez on 10-01-2024 Platelets (Bld) [#/Vol] 296 10*3/uL 150-[address] [facility] Potassium measurement (mass/ volume)Ordered By: Mary Ann Vazquez on 10-01-2024 Potassium (Unsp spec) [Mass/Vol] 4.0 mmol/L 3.3-5.[address] [facility] RBC Auto (Bld) [#/Vol]Ordere d By: Mary Ann Vazquez on 10-01-2024 RBC (Bld) [#/Vol] 3.86 10*6/uL Low 4.2-5.4 [facility] Serum creatinine measurement (mass/volume)Ordered By: Mary Ann Vazquez on 10-01-2024 Creatinine [Mass/Vol] 0.52 mg/dL Low 0.70-1.20 [facility] Serum globulin measurementOr dered By: Mary Ann Vazquez on 10-01-2024 Globulin (S) [Mass/Vol] 2.6 g/dL 2.2-4.[address] [facility] Serum glucose measurement (m ass/volume)Ordered By: Mary Ann Vazquez on 10-01-2024 Glucose [Mass/Vol] 94 mg/dL 70-99 [facility] Serum or plasma alanine ndiaye otransferase (ALT) measurementOrdered By: Mary Ann Vazquez on 10-01-2024 ALT [Catalytic activity/Vol] 24 U/L <[address] [facility] Serum or plasma albumin marco urement (mass/volume)Ordered By: Mary Ann Vazquez on 10-01-2024 Albumin [Mass/Vol] 4.2 g/dL 3.4-4.8 [facility] Serum or plasma albumin/glob ulin mass ratioOrdered By: Mary Ann Vazquez on 10-01-2024 Albumin/Globulin [Mass ratio] 1.6 {ratio} 0.9-2.[address] [facility] Serum or plasma alkaline farida sphatase measurementOrdered By: Mary Ann Vazquez on 10-01-2024 ALP [Catalytic activity/Vol] 86 U/L 35-[address] [facility] Serum or plasma calcium marco urement (mass/volume)Ordered By: Mary Ann Vazquez on 10-01-2024 Calcium [Mass/Vol] 9.0 mg/dL 7.6-11.0 [facility] Serum or plasma urea nitroge n measurement (mass/volume)Ordered By: Mary Ann Vazquez on 10-01-2024 Urea nitrogen [Mass/Vol] 9 mg/dL 4-[address] [facility] Sodium levelOrdered By: Sydni Vazquez on 10-01-2024 Sodium [Moles/Vol] 132 mmol/L Low 133-145 [facility] Total proteinOrdered By: Wilner Vazquez on 10-01-2024 Protein [Mass/Vol] 6.8 g/dL 5.9-8.4 [facility] White blood cell (WBC) count Ordered By: Mary Ann Vazquez on 10-01-2024 WBC (Bld) [#/Vol] 8.4 10*3/uL 4.4-11.0 [facility] Coronary Angiography CTon Coronary Angiography CT [facility] [address] [place] [address] 07/20/24 0755 MR#: [id number] Acct: [id number] Name: REYMUNDO ALANIS Rep #: [id number] : 1965 59 From: Arron Soto MD PCP: Dr. Nathanael Frazier MD Status:REG REF Y Location: CT Calcium Scoring Date of Study:: 07/20/24 Indications Indications: Coronary Calcium Scoring: High-resolution Computed Tomographic imaging [...] MD; Dr. Arron Soto MD Signed Normal [facility] Limited Chest CT Cardiac Onl yon 07-20-[address] Cardiac Only [facility] [address] [place] [address] Cardiac Only MR#: [id number] Acct: [id number] Name: REYMUNDO ALANIS Rep #: [id number] : 1965 F 59 From: Bharat reynolds MD PCP: Dr. Nathanael Frazier MD Status: REG REF Study: Limited Chest CT Cardiac Only Date of Exam: Exam# [id number] Ordering Dr: Nathanael Frazier MD PROCEDURE: LIMITED [...] calcification (CAC) is is absent Reading Location: [place] [address] CC: Dr. Nathanael Frazier MD Billing Clerk: Signed Normal [facility] CBC W/Diff, Automatedon 12-1 Absolute Lymph 1.63 X10 3/uL Normal 0.83-4.[address] [facility] Comment on above: Performed By: #### L 500.4050, L100.0100 #### [facility] [address] [place], [address] Absolute Neut 3.5 X10 3/uL Normal 2.0-7.[address] [facility] Comment on above: Performed By: #### L 500.4050, L100.0100 #### [facility] [address] [place], [address] Basophils/100 WBC (Bld) 0.7 % Normal 0-[address] [facility] Comment on above: Performed By: #### L 500.4050, L100.0100 #### [facility] [address] [place], [address] Eosinophils/100 WBC (Bld) 0.9 % Normal 0-[address] [facility] Comment on above: Performed By: #### L 500.4050, L100.0100 #### [facility] [address] [place], [address] Erythrocyte distribution width (RBC) [Ratio] 11.9 % Normal 11.6-14.[address] [facility] Comment on above: Performed By: #### L 500.4050, L100.0100 #### [facility] [address] [place], [address] Hematocrit (Bld) [Volume fraction] 36.5 % Low 37-[address] [facility] Comment on above: Performed By: #### L 500.4050, L100.0100 #### [facility] [address] [place], [address] Hemoglobin (Bld) [Mass/Vol] 12.8 g/dL Normal 12.0-15.[address] [facility] Comment on above: Performed By: #### L 500.4050, L100.0100 #### [facility] [address] [place], [address] IG% 0.400 Normal 0.0-0.[address] [facility] Comment on above: Result Comment: IG% - Immature Granulocytes (promyelocytes, myelocytes and metamyelocytes) > 1% indicates that a LEFT SHIFT is Present. Performed By: #### L 500.4050, L100.0100 #### [facility] [address] [place], [address] Lymphocytes/100 WBC (Bld) 28.8 % Normal 19-[address] [facility] Comment on above: Performed By: #### L 500.4050, L100.0100 #### [facility] [address] [place], [address] MCH (RBC) [Entitic mass] 32.7 pg High 27.0-32.[address] [facility] Comment on above: Performed By: #### L 500.4050, L100.0100 #### [facility] [address] [place], [address] MCHC (RBC) [Mass/Vol] 35.1 g/dL Normal 32-36 [facility] Comment on above: Performed By: #### L 500.4050, L100.0100 #### [facility] [address] [place], [address] MCV (RBC) [Entitic vol] 93.4 fL Normal 81-[address] [facility] Comment on above: Performed By: #### L 500.4050, L100.0100 #### [facility] [address] [place], [address] Monocytes/100 WBC (Bld) 7.1 % Normal 0-[address] [facility] Comment on above: Performed By: #### L 500.4050, L100.0100 #### [facility] [address] [place], [address] Neutrophils/100 WBC (Bld) 62.1 % Normal 47-[address] [facility] Comment on above: Performed By: #### L 500.4050, L100.0100 #### [facility] [address] [place], [address] Nucleated RBC (Bld) [#/Vol] 0 10*3/uL Normal 0-[address] [facility] Comment on above: Performed By: #### L 500.4050, L100.0100 #### [facility] [address] [place], [address] Platelet mean volume (Bld) [Entitic vol] 8.8 fL Normal 6.2-12.[address] [facility] Comment on above: Performed By: #### L 500.4050, L100.0100 #### [facility] [address] [place], [address] Platelets (Bld) [#/Vol] 296 10*3/uL Normal 150-[address] [facility] Comment on above: Performed By: #### L 500.4050, L100.0100 #### [facility] [address] [place], [address] RBC (Bld) [#/Vol] 3.91 10*6/uL Low 4.2-5.4 [facility] Comment on above: Performed By: #### L 500.4050, L100.0100 #### [facility] [address] [place], [address] RDW SD 39.9 fl Normal 35.1-43.[address] [facility] Comment on above: Performed By: #### L 500.4050, L100.0100 #### [facility] [address] [place], [address] WBC (Bld) [#/Vol] 5.7 10*3/uL Normal 4.4-11.0 [facility] Comment on above: Performed By: #### L 500.4050, L100.0100 #### [facility] [address] [place], [address] Comprehensive Metabolic Prof ilon 04-10-2024 Albumin [Mass/Vol] 3.7 g/dL Normal 3.2-5.0 [facility] Comment on above: Performed By: #### L 500.4050, L100.0100 #### [facility] [address] [place], [address] Albumin/Globulin [Mass ratio] 1.1 {ratio} Normal 0.9-2.[address] [facility] Comment on above: Performed By: #### L 500.4050, L100.0100 #### [facility] [address] [place], [address] ALK P 90 U/L Normal 45-[address] [facility] Comment on above: Performed By: #### L 500.4050, L100.0100 #### [facility] [address] [place], [address] ALT [Catalytic activity/Vol] 33 U/L Normal 13-[address] [facility] Comment on above: Performed By: #### L 500.4050, L100.0100 #### [facility] [address] [place], [address] AST [Catalytic activity/Vol] 22 U/L Normal 15-[address] [facility] Comment on above: Performed By: #### L 500.4050, L100.0100 #### [facility] [address] [place], [address] Bilirubin [Mass/Vol] 0.40 mg/dL Normal 0.20-1.00 [facility] Comment on above: Result Comment: For patients on eltrombopag therapy, use of Dimension [place] TBIL is not recommended. Performed By: #### L 500.4050, L100.0100 #### [facility] [address] [place], [address] BUN/CRE 16.3 RATIO Normal 10-[address] [facility] Comment on above: Performed By: #### L 500.4050, L100.0100 #### [facility] [address] [place], [address] CA,Total 8.9 mg/dL Normal 8.5-10.[address] [facility] Comment on above: Performed By: #### L 500.4050, L100.0100 #### [facility] [address] [place], [address] Chloride [Moles/Vol] 102 mmol/L Normal 98-107 [facility] Comment on above: Performed By: #### L 500.4050, L100.0100 #### [facility] [address] [place], [address] CO2 [Moles/Vol] 25.0 mmol/L Normal 21.0-32.[address] [facility] Comment on above: Performed By: #### L 500.4050, L100.0100 #### [facility] [address] [place], [address] Creatinine [Mass/Vol] 0.43 mg/dL Low 0.55-1.02 [facility] Comment on above: Result Comment: The validity of the calculated GFR GFRAA in patients over 70 years has not been determined. Clinical correlation is essential. Performed By: #### L 500.4050, L100.0100 #### [facility] [address] [place], [address] EST GFR - AA 193 mL/min Normal >[address] [facility] Comment on above: Result Comment: Afri can Burmese GFR Calc Performed By: #### L 500.4050, L100.0100 #### [facility] [address] [place], [address] GAP 6 Normal 5-[address] [facility] Comment on above: Performed By: #### L 500.4050, L100.0100 #### [facility] [address] [place], [address] GFR/1.73 sq M.predicted among non-blacks MDRD (S/P/Bld) [Vol rate/Area] 160 mL/min/{1.73_m2} Normal >[address] [facility] Comment on above: Result Comment: Non- GFR Calc Performed By: #### L 500.4050, L100.0100 #### [facility] [address] [place], [address] Globulin (S) [Mass/Vol] 3.3 g/dL Normal 2.2-4.[address] [facility] Comment on above: Performed By: #### L 500.4050, L100.0100 #### [facility] [address] [place], [address] Glucose [Mass/Vol] 105 mg/dL Normal 74-106 [facility] Comment on above: Result Comment: Fast ing Glucose result from 100 to 125 mg/dL suggests IMPAIRED HOMEOSTASIS per A.D.A. criteria. Performed By: #### L 500.4050, L100.0100 #### [facility] [address] [place], [address] Potassium [Moles/Vol] 4.1 mmol/L Normal 3.5-5.1 [facility] Comment on above: Performed By: #### L 500.4050, L100.0100 #### [facility] [address] [place], [address] Sodium [Moles/Vol] 133 mmol/L Low 136-145 [facility] Comment on above: Performed By: #### L 500.4050, L100.0100 #### [facility] [address] [place], [address] T PROT 7.0 g/dL Normal 6.4-8.[address] [facility] Comment on above: Performed By: #### L 500.4050, L100.0100 #### [facility] [address] [place], [address] Urea nitrogen [Mass/Vol] 7 mg/dL Normal 7-[address] [facility] Comment on above: Performed By: #### L 500.4050, L100.0100 #### [facility] [address] [place], [address] Colonoscopy Reporton 024 Colonoscopy Report [facility] Medical Records Department [address] [place] [address] Colonoscopy Report MR#: [id number] Acct: [id number] Name: REYMUNDO ALANIS Rep #: [id number] : 1965 59 From: Chase Guadarrama DO PCP: Dr. Nathanael Frazier MD Status:[facility] Patient Name: Reymundo Alanis Procedure Date: 02/23/2024 [...] for surveillance. Procedure Code(s): --- Professional --- 09031, Colonoscopy, flexible; with biopsy, single or multiple CPT copyright 2021 [employer]. All rights reserved. The codes documented in this report are preliminary and upon material lister review may be revised to meet current compliance requirements. Chase Guadarrama DO 02/23/2024 10:22:24 AM This report has been signed electronically. Number of Addenda: 0 Note Initiated On: 02/23/2024 9:52 AM 02/23/24 1022 Date Chase Guadarrama DO Cosigner Signature: Date (if indicated) CC: Dr. Nathanael Frazier MD; Chase Guadarrama DO Date Dictated: 02/23/24951 Date Transcribed: Billing Clerk: GUZMAN Signed [facility] MR/POSTOP.SHYAAN 02-23-2024 MR/POSTOP.[facility] Medical Records Department [address] [place] [address] Anesthesia Postop Eval I 02/23/24 102 MR#: [id number] Acct: [id number] Name: REYMUNDO ALANIS Rep #: [id number] : 1965 59 From: Gabo Ye PCP: Dr. Nathanael Frazier MD Status:REG SDC Y Race: C Location: [place] [address] Anesthesia: Postop Eval I Current Vital Signs [...] Gabo Kolb Signature: Date CC: Signed Normal [facility] MR/[id number] 02-23-2024 MR/POSTOPAN2 [facility] Medical Records Department [address] [facility] [address] Anesthesia Postop Eval II 02/23/24 1548 MR#: [id number] Acct: [id number] Name: REYMUNDO ALANIS Rep #: [id number] : 1965 59 From: Mauro Melo MD PCP: Dr. Nathanael Frazier MD Status:DEP [facility] Y Race: C Location: EN Anesthesia Postop [...] Mauro Kolb Signature: Date CC: Signed Normal [facility] Surgery Specimen Level Rogelio 02-23-2024 Surgery Specimen Level IV Patient Age/Sex Location Account Attending Physician REYMUNDO ALANIS 59/F EN [id number] Chase Guadarrama DO Specimen: [id number] Received: 02/23/24-1207 Status: RAVI Cheema Num: [id number] Spec Type: COLON BX Subm Dr: Chase [...] submitted in one cassette. . 02/23/2024 TC:1 CPT:05588 Patient Age/Sex Location Account Attending Physician REYMUNDO ALANIS/Eddie BO [id number] Chase Guadarrama DO Signed (signature on file) Dr. Dharmesh Velarde MD 02/24/[address] [facility] Comment on above: Performed By: #### P SUIV ####[facility] [id number] [place], [place], [address] DBT Breast - bilateral scree reginaldo 12-09-2023 [...] MD Electronically Signed Date/Time: 12/09/2023 10:47 AM [facility] [employer] RADIOLOGY SYSTEM Patient Name: REYMUNDO BLANKENSHIP : 1965 [...] images: BB's = Nipples; skin lesions [place] = Palpable Line = Scar COMPARISON: 12/06/2022 and 11/15/2021 TISSUE DENSITY: BIRADS B - There are scattered fibroglandular densities. FINDINGS: No suspicious masses, architectural distortions or suspiciously clustered microcalcifications are identified. There is no evidence of skin thickening or nipple retraction. There are no significant changes when compared with prior studies. [facility] RADIOLOGY SYSTEM Kathleen Oneil MD - 12/09/2023 Patient Name: REYMUNDO BLANKENSHIP [facility] 1965 [id number] Exam Date/Time: 12/09/2023 09:35 Procedure: BI MAMMOGRAM [...] images: BB's = Nipples; skin lesions [place] = Palpable Line = Scar COMPARISON: 12/06/2022 [...] Electronically Signed Date/Time: 12/09/2023 10:47 AM EDT [employer] Radiology Study observation (narrative) [employer] DBT Breast - bilateral scree ningOrdered By: Kathleen Oneil on 12-09-2023 [employer] Work Phone: Hcflmnoy percentageOrdered B y: Bebe William on 07-05-2023 Chloride [Moles/Vol] 101 mmol/L 98-107 [facility] Glucose [Mass/Vol] 102 mg/dL 74-106 [facility] Comment on above: Fasting Glucose resu lt from 100 to 125 mg/dL suggests IMPAIRED HOMEOSTASIS per A.D.A. criteria. Potassium [Moles/Vol] 4.0 mmol/L 3.5-5.1 [facility] Sodium [Moles/Vol] 133 mmol/L 136-145 [facility] Laboratory - Chemistry and C hemistry - challengeOrdered By: Bebe William on 07-05-2023 CO2 [Moles/Vol] 28.0 mmol/L 21.0-32.[address] [facility] Urea nitrogen/Creatinine [Mass ratio] 18.7 mg/mg 10-[address] [facility] No Panel InformationOrdered By: Bebe William on 07-05-2023 Estimated GFR (MDRD) Amer 150 mL/min >[address] [facility] Comment on above: GFR Calc Estimated GFR (MDRD) Non-Af Amer 124 mL/min >[address] [facility] Comment on above: Non- GFR Calc Serum or plasma calcium marco urement (mass/volume)Ordered By: Bebe William on 07-05-2023 Calcium [Mass/Vol] 8.7 mg/dL 8.5-10.1 [facility] Serum or plasma creatinine m easurement (mass/volume)Ordered By: Bebe William on 07-05-2023 Creatinine [Mass/Vol] 0.54 mg/dL 0.55-1.02 [facility] Comment on above: The validity of the calculated GFR & GFRAA in patients over 70 years has not been determined. Clinical correlation is essential. Serum or plasma urea nitroge n measurement (mass/volume)Ordered By: Bebe William on 07-05-2023 Urea nitrogen [Mass/Vol] 10 mg/dL 7-[address] [facility] Thin prep Papanicolaou smear with manual screeningOrdered By: Bebe William on 07-05-2023 Thin prep Papanicolaou smear with manual screening 4 5-[address] [facility] Absolute lymphocyte countOrd ered By: Mary Ann Vazquez on 06-17-2023 Lymphocytes Auto (Unsp spec) [#/Vol] 2.37 10*3/uL 0.83-4.[address] [facility] Automated lymphocyte count a s percentage of total leukocytesOrdered By: Mary Ann Vazquez on 06-17-2023 Lymphocytes/100 WBC Auto (Unsp spec) 31.0 % 19-[address] [facility] Basophil percentageOrdered B y: Mary Ann Vazquez on 06-17-2023 Basophils/100 WBC (Bld) 0.5 % 0-[address] [facility] Bilirubin [Mass/Vol] 0.50 mg/dL 0.20-1.00 [facility] Comment on above: For patients on eltr ombopag therapy, use of Dimension [place] TBIL is not recommended. Chloride [Moles/Vol] 95 mmol/L 98-107 [facility] Eosinophils/100 WBC (Bld) 1.3 % 0-[address] [facility] Glucose [Mass/Vol] 93 mg/dL 74-106 [facility] Hemoglobin (Bld) [Mass/Vol] 12.7 g/dL 12.0-15.[address] [facility] Monocytes/100 WBC (Bld) 7.1 % 0-[address] [facility] Neutrophils (Bld) [#/Vol] 4.6 10*3/uL 2.0-7.[address] [facility] Neutrophils/100 WBC (Bld) 59.6 % 47-[address] [facility] Potassium [Moles/Vol] 4.0 mmol/L 3.5-5.1 [facility] Protein [Mass/Vol] 6.9 g/dL 6.4-8.2 [facility] Sodium [Moles/Vol] 129 mmol/L 136-145 [facility] WBC (Bld) [#/Vol] 7.6 10*3/uL 4.4-11.0 [facility] Determination of erythrocyte mean corpuscular volume (MCV)Ordered By: Mary Ann Vazquez on 06-17-2023 MCV (RBC) [Entitic vol] 97.6 fL 81-[address] [facility] Erythrocyte distribution wid th ratioOrdered By: Mary Ann Vazquez on 06-17-2023 Erythrocyte distribution width (RBC) [Ratio] 11.9 % 11.6-14.[address] [facility] Erythrocyte distribution wid th standard deviationOrdered By: Mary Ann Vazquez on 06-17-2023 Erythrocyte distribution width (RBC) [Entitic vol] 43.0 fL 35.1-43.[address] [facility] Hematocrit Auto (Bld) [Volum e fraction]Ordered By: Mary Ann Vazquez on 06-17-2023 Hematocrit (Bld) [Volume fraction] 36.5 % 37-[address] [facility] Immature granulocytes/100 WB C Auto (Bld)Ordered By: Mary Ann Vazquez on 06-17-2023 Immature granulocytes/100 WBC (Bld) 0.500 % 0.0-0.[address] [facility] Comment on above: IG% - Immature Granu locytes (promyelocytes, myelocytes and metamyelocytes) > 1% indicates that a LEFT SHIFT is Present. Laboratory - Chemistry and C hemistry - challengeOrdered By: Mary Ann Vazquez on 06-17-2023 Albumin/Globulin [Mass ratio] 1.2 {ratio} 0.9-2.[address] [facility] ALP [Catalytic activity/Vol] 74 U/L 45-[address] [facility] ALT [Catalytic activity/Vol] 28 U/L 13-[address] [facility] CO2 [Moles/Vol] 27.0 mmol/L 21.0-32.[address] [facility] Globulin (S) [Mass/Vol] 3.2 g/dL 2.2-4.[address] [facility] Urea nitrogen/Creatinine [Mass ratio] 22.8 mg/mg 10-[address] [facility] - Hematology and Cell countsOrdered By: Mary Ann Vazquez on 06-17-2023 MCH (RBC) [Entitic mass] 34.0 pg 27.0-32.[address] [facility] MCHC (RBC) [Mass/Vol] 34.8 g/dL 32-36 [facility] Nucleated RBC/100 WBC (Bld) [Ratio] 0 % 0-[address] [facility] Platelet mean volume (Bld) [Entitic vol] 9.3 fL 6.2-12.[address] [facility] Platelets (Bld) [#/Vol] 314 10*3/uL 150-[address] [facility] No Panel InformationOrdered By: Mary Ann Vazquez on 06-17-2023 Estimated GFR (MDRD) Amer 189 mL/min >[address] [facility] Comment on above: GFR Calc Estimated GFR (MDRD) Non-Af Amer 156 mL/min >[address] [facility] Comment on above: Non- GFR Calc RBC Auto (Bld) [#/Vol]Ordere d By: Mary Ann Vazquez on 06-17-2023 RBC (Bld) [#/Vol] 3.74 10*6/uL 4.2-5.4 [facility] Serum or plasma calcium marco urement (mass/volume)Ordered By: Mary Ann Vazquez on 06-17-2023 Calcium [Mass/Vol] 8.5 mg/dL 8.5-10.1 [facility] Serum or plasma creatinine m easurement (mass/volume)Ordered By: Mary Ann Vazquez on 06-17-2023 Creatinine [Mass/Vol] 0.44 mg/dL 0.55-1.02 [facility] Comment on above: The validity of the calculated GFR & GFRAA in patients over 70 years has not been determined. Clinical correlation is essential. Serum or plasma urea nitroge n measurement (mass/volume)Ordered By: Mary Ann Vazquez on 06-17-2023 Urea nitrogen [Mass/Vol] 10 mg/dL 7-[address] [facility] Thin prep Papanicolaou smear with manual screeningOrdered By: Mary Ann Vazquez on 06-17-2023 Thin prep Papanicolaou smear with manual screening 3.7 g/dL 3.2-5.[address] [facility] Thin prep Papanicolaou smear with manual screening 24 U/L 15-[address] [facility] Thin prep Papanicolaou smear with manual screening 7 5-[address] [facility] Absolute lymphocyte countOrd ered By: Mary Ann Vazquez on 01-23-2023 Lymphocytes Auto (Unsp spec) [#/Vol] 2.10 10*3/uL 0.83-4.[address] [facility] Basophil percentageOrdered B y: Mary Ann Vazquez on 01-23-2023 Basophils/100 WBC (Bld) 0.4 % 0-[address] [facility] Bilirubin [Mass/Vol] 0.20 mg/dL 0.20-1.00 [facility] Comment on above: For patients on eltr ombopag therapy, use of Dimension [place] TBIL is not recommended. Chloride [Moles/Vol] 97 mmol/L 98-107 [facility] Eosinophils/100 WBC (Bld) 1.2 % 0-[address] [facility] Glucose [Mass/Vol] 90 mg/dL 74-106 [facility] Neutrophils (Bld) [#/Vol] 4.9 10*3/uL 2.0-7.[address] [facility] Neutrophils/100 WBC (Bld) 64.5 % 47-[address] [facility] Potassium [Moles/Vol] 3.6 mmol/L 3.5-5.1 [facility] Protein [Mass/Vol] 6.6 g/dL 6.4-8.2 [facility] Sodium [Moles/Vol] 131 mmol/L 136-145 [facility] WBC (Bld) [#/Vol] 7.6 10*3/uL 4.4-11.0 [facility] Blood erythrocytes count (nu mber/volume)Ordered By: Mary Ann Vazquez on 01-23-2023 RBC (Bld) [#/Vol] 3.93 10*6/uL 4.2-5.4 [facility] Blood hemoglobin measurement (mass/volume)Ordered By: Mary Ann Vazquez on 01-23-2023 Hemoglobin (Bld) [Mass/Vol] 13.4 g/dL 12.0-15.[address] [facility] Blood lymphocytes/100 leukoc ytesOrdered By: Mary nAn Vazquez on 01-23-2023 Lymphocytes/100 WBC (Bld) 27.7 % 19-[address] [facility] Blood monocytes/100 leukocyt esOrdered By: Mary Ann Vazquez on 01-23-2023 Monocytes/100 WBC (Bld) 5.8 % 0-[address] [facility] Blood platelet mean volumeOr dered By: Mary Ann Vazquez on 01-23-2023 Platelet mean volume (Bld) [Entitic vol] 9.4 fL 6.2-12.[address] [facility] Determination of erythrocyte mean corpuscular volume (MCV)Ordered By: Mary Ann Vazquez on 01-23-2023 MCV (RBC) [Entitic vol] 98.2 fL 81-[address] [facility] Hematocrit Auto (Bld) [Volum e fraction]Ordered By: Mary Ann Taylor on 01-23-2023 Hematocrit (Bld) [Volume fraction] 38.6 % 37-[address] [facility] - Chemistry and C hemistry - challengeOrdered By: Mary Ann Vazquez on 01-23-2023 ALP [Catalytic activity/Vol] 79 U/L 45-[address] [facility] ALT [Catalytic activity/Vol] 37 U/L 13-[address] [facility] CO2 [Moles/Vol] 27.0 mmol/L 21.0-32.[address] [facility] Globulin (S) [Mass/Vol] 2.9 g/dL 2.2-4.[address] [facility] Urea nitrogen/Creatinine [Mass ratio] 19.7 mg/mg 10-[address] [facility] - Hematology and Cell countsOrdered By: Mary Ann Vazquez on 01-23-2023 Erythrocyte distribution width (RBC) [Entitic vol] 45.3 fL 35.1-43.[address] [facility] Erythrocyte distribution width (RBC) [Ratio] 12.5 % 11.6-14.[address] [facility] Immature granulocytes/100 WBC (Bld) 0.400 % 0.0-0.[address] [facility] Comment on above: IG% - Immature Granu locytes (promyelocytes, myelocytes and metamyelocytes) > 1% indicates that a LEFT SHIFT is Present. MCH (RBC) [Entitic mass] 34.1 pg 27.0-32.[address] [facility] Nucleated RBC/100 WBC (Bld) [Ratio] 0 % 0-[address] [facility] MCHC Auto (RBC) [Mass/Vol]Or dered By: Mary Ann Vazquez on 01-23-2023 MCHC (RBC) [Mass/Vol] 34.7 g/dL 32-36 [facility] No Panel InformationOrdered By: Mary Ann Vazquez on 01-23-2023 Estimated GFR (MDRD) Amer 206 mL/min >[address] [facility] Comment on above: GFR Calc Estimated GFR (MDRD) Non-Af Amer 170 mL/min >[address] [facility] Comment on above: Non- GFR Calc Platelets bldOrdered By: Wilner Vazquez on 01-23-2023 Platelets (Bld) [#/Vol] 338 10*3/uL 150-[address] [facility] Serum or plasma albumin marco urement (mass/volume)Ordered By: Mary Ann Vazquez on 01-23-2023 Albumin [Mass/Vol] 3.7 g/dL 3.2-5.0 [facility] Serum or plasma albumin/glob ulin mass ratioOrdered By: Mary Ann Vazquez on 01-23-2023 Albumin/Globulin [Mass ratio] 1.3 {ratio} 0.9-2.[address] [facility] Serum or plasma calcium marco urement (mass/volume)Ordered By: Mary Ann Vazquez on 01-23-2023 Calcium [Mass/Vol] 8.8 mg/dL 8.5-10.1 [facility] Serum or plasma creatinine m easurement (mass/volume)Ordered By: Mary Ann Vazquez on 01-23-2023 Creatinine [Mass/Vol] 0.41 mg/dL 0.55-1.02 [facility] Comment on above: The validity of the calculated GFR & GFRAA in patients over 70 years has not been determined. Clinical correlation is essential. Serum or plasma urea nitroge n measurement (mass/volume)Ordered By: Mary Ann Vazquez on 01-23-2023 Urea nitrogen [Mass/Vol] 8 mg/dL 7-[address] [facility] Thin prep Papanicolaou smear with manual screeningOrdered By: Mary Ann Vazquez on 01-23-2023 Thin prep Papanicolaou smear with manual screening 27 U/L 15-[address] [facility] Thin prep Papanicolaou smear with manual screening 7 5-[address] [facility] DBT Breast - bilateral diagn osticon [...] images: BB's = Nipples; skin lesions [place] = Palpable Line = Scar TISSUE DENSITY: [...] benign change. No further follow-up is needed. [facility] RADIOLOGY SYSTEM Sai Harvey MD - 12/06/2022 Patient Name: REYMUNDO BLANKENSHIP : 1965 Exam Date/Time: 12/06/2022 13:30 Procedure: BI MAMMOGRAM DIAGNOSTIC TOMOSYNTHESIS BILATERAL Ordering Provider: MARKHAM ELIZABETH Reason For Exam: f/u duct ectasia COMPARISONS: 2022; 2021; 2020 MAMMOGRAM: Image views: 2D CC and MLO views were acquired. 3D CC and MLO views were acquired. Markings on images: BB's = Nipples; skin lesions [place] = Palpable Line = Scar TISSUE DENSITY: [...] of this examination. LIFETIME BREAST CANCER RISK: Izzy: 13.42 % - If greater than or [...] Electronically Signed Date/Time: 12/06/2022 1:48 PM EDT [facility] [employer] Radiology Study observation (narrative) [facility] No Panel Informationon 12-06 Interval decrease in [...] of this examination. LIFETIME BREAST CANCER RISK: Izzy: 13.42 % - If greater than or [...] MD Electronically Signed Date/Time: 12/06/2022 1:48 PM [facility] RADIOLOGY SYSTEM No Panel InformationOrdered By: Sai Harvey on 12-06-2022 [employer] Phone: US Breast - left limitedon 0 [...] images: BB's = Nipples; skin lesions [place] = Palpable Line = Scar TISSUE DENSITY: [...] benign change. No further follow-up is needed. [facility] RADIOLOGY SYSTEM Sai Harvye MD - 12/06/2022 [facility] Name: REYMUNDO BLANKENSHIP [facility] 1965 [id number] Exam Date/Time: 12/06/2022 13:38 Procedure: BI US BREAST LIMITED LEFT Ordering Provider: MARKHAM ELIZABETH Reason For Exam: f/u duct ectasia COMPARISONS: 2022; 2021; 2020 MAMMOGRAM: Image views: 2D CC and MLO views were acquired. 3D CC and MLO views were acquired. Markings on images: BB's = Nipples; skin lesions [place] = Palpable Line = Scar TISSUE DENSITY: [...] of this examination. LIFETIME BREAST CANCER RISK: Izzy: 13.42 % - If greater than or [...] Electronically Signed Date/Time: 12/06/2022 1:48 PM EDT [facility] Radiology Study observation (narrative) [facility] MR Breast - bilateral WO and [...] Electronically Signed Date/Time: 11/12/2022 2:39 PM EDT [facility] [employer] Patient Name: REYMUNDO BLANKENSHIP : 1965 [id number] Exam Date/Time: 11/12/2022 13:36 Procedure: BI MR [...] axillary or internal mammary lymphadenopathy is appreciated. [facility] [employer] Lino Loco MD - 11/12/2022 Patient [...] Electronically Signed Date/Time: 11/12/2022 2:39 PM EDT [employer] Radiology Study observation (narrative) [employer] MR Breast - bilateral WO and W contrast IVOrdered By: iLno Loco on 11-12-2022 [employer] Work Phone: Absolute lymphocyte countOrd ered By: Mary Ann Vazquez on 11-02-2022 Lymphocytes Auto (Unsp spec) [#/Vol] 1.26 10*3/uL 0.83-4.[address] [facility] Basophil percentageOrdered B y: Mary Ann Vazquez on 07-08-2023 Basophils/100 WBC (Bld) 0.7 % 0-[address] [facility] Eosinophils/100 WBC (Bld) 0.9 % 0-[address] [facility] Neutrophils (Bld) [#/Vol] 4.0 10*3/uL 2.0-7.[address] [facility] Neutrophils/100 WBC (Bld) 68.7 % 47-[address] [facility] WBC (Bld) [#/Vol] 5.8 10*3/uL 4.4-11.0 [facility] Bilirubin [Mass/Vol] 0.20 mg/dL 0.20-1.00 [facility] Comment on above: For patients on eltr ombopag therapy, use of Dimension [place] TBIL is not recommended. Chloride [Moles/Vol] 105 mmol/L 98-107 [facility] Cholesterol [Mass/Vol] 182 mg/dL <[address] [facility] Comment on above: <200 mg/dL Desirable 200-240 mg/dL Borderline >240 mg/dL High Risk Glucose [Mass/Vol] 97 mg/dL 74-106 [facility] Potassium [Moles/Vol] 4.3 mmol/L 3.5-5.1 [facility] Protein [Mass/Vol] 7.4 g/dL 6.4-8.2 [facility] Sodium [Moles/Vol] 136 mmol/L 136-145 [facility] Triglyceride [Mass/Vol] 62 mg/dL <[address] [facility] Comment on above: The drugs N-Acetylcy steine and Metamizole may falsely depress this assay.Serum Triglycerides Reference Interval Normal <150 mg/dL Borderline high 150 - 199 mg/dL High 200 - 499 mg/dL Very High > or = 500 mg/dL Blood erythrocytes count (nu mber/volume)Ordered By: Mary Ann Vazquez on 11-02-2022 RBC (Bld) [#/Vol] 4.13 10*6/uL 4.2-5.4 [facility] Blood hemoglobin measurement (mass/volume)Ordered By: Mary Ann Vazquez on 11-02-2022 Hemoglobin (Bld) [Mass/Vol] 13.7 g/dL 12.0-15.[address] [facility] Blood lymphocytes/100 leukoc ytesOrdered By: Mary Ann Vazquez on 11-02-2022 Lymphocytes/100 WBC (Bld) 21.9 % 19-[address] [facility] Blood monocytes/100 leukocyt esOrdered By: Mary Ann Vazquez on 11-02-2022 Monocytes/100 WBC (Bld) 7.3 % 0-[address] [facility] Blood platelet mean volumeOr dered By: Mary Ann Vazquez on 11-02-2022 Platelet mean volume (Bld) [Entitic vol] 9.1 fL 6.2-12.[address] [facility] Determination of erythrocyte mean corpuscular volume (MCV)Ordered By: Mary Annjun Vazquez on 11-02-2022 MCV (RBC) [Entitic vol] 99.3 fL 81-[address] [facility] Hematocrit Auto (Bld) [Volum e fraction]Ordered By: Mary Ann Vazquez on 11-02-2022 Hematocrit (Bld) [Volume fraction] 41.0 % 37-[address] [facility] Laboratory - Chemistry and C hemistry - challengeOrdered By: Mary Ann Vazquez on 11-02-2022 ALP [Catalytic activity/Vol] 103 U/L 45-[address] [facility] ALT [Catalytic activity/Vol] 38 U/L 13-[address] [facility] CO2 [Moles/Vol] 27.0 mmol/L 21.0-32.[address] [facility] Globulin (S) [Mass/Vol] 3.9 g/dL 2.2-4.[address] [facility] Urea nitrogen/Creatinine [Mass ratio] 19.3 mg/mg 10-[address] [facility] Laboratory - Hematology and Cell countsOrdered By: Mary Annjun Vazquez on 11-02-2022 Erythrocyte distribution width (RBC) [Entitic vol] 45.7 fL 35.1-43.[address] [facility] Erythrocyte distribution width (RBC) [Ratio] 12.6 % 11.6-14.[address] [facility] Immature granulocytes/100 WBC (Bld) 0.500 % 0.0-0.[address] [facility] Comment on above: IG% - Immature Granu locytes (promyelocytes, myelocytes and metamyelocytes) > 1% indicates that a LEFT SHIFT is Present. MCH (RBC) [Entitic mass] 33.2 pg 27.0-32.[address] [facility] Nucleated RBC/100 WBC (Bld) [Ratio] 0 % 0-[address] [facility] MCHC Auto (RBC) [Mass/Vol]Or dered By: Mary Ann Vazquez on 11-02-2022 MCHC (RBC) [Mass/Vol] 33.4 g/dL 32-36 [facility] No Panel InformationOrdered By: Mary Ann Vazquez on 11-02-2022 Estimated GFR (MDRD) Amer 140 mL/min >[address] [facility] Comment on above: GFR Calc Estimated GFR (MDRD) Non-Af Amer 116 mL/min >[address] [facility] Comment on above: Non- GFR Calc Platelets bldOrdered By: Wilner Vazquez on 11-02-2022 Platelets (Bld) [#/Vol] 314 10*3/uL 150-[address] [facility] Serum or plasma albumin marco urement (mass/volume)Ordered By: Mary Ann Vazquez on 11-02-2022 Albumin [Mass/Vol] 3.5 g/dL 3.2-5.0 [facility] Serum or plasma albumin/glob ulin mass ratioOrdered By: Mary Ann Vazquez on 11-02-2022 Albumin/Globulin [Mass ratio] 0.9 {ratio} 0.9-2.[address] [facility] Serum or plasma calcium marco urement (mass/volume)Ordered By: Mary Ann Vazquez on 11-02-2022 Calcium [Mass/Vol] 8.5 mg/dL 8.5-10.1 [facility] Serum or plasma cholesterol in HDL measurement (mass/volume)Ordered By: Mary Ann Vazquez on 11-02-2022 Cholesterol in HDL [Mass/Vol] 77 mg/dL >[address] [facility] Comment on above: The drugs N-Acetylcy steine and Metamizole may falsely depress this assay. Reference Range HDL <40 mg/dL Low HDL Cholesterol HDL >or= 60 mg/dL High HDL Cholesterol Serum or plasma cholesterol in VLDL measurement (mass/volume)Ordered By: Mary Ann Vazquez on 11-02-2022 Cholesterol in VLDL [Mass/Vol] 12 mg/dL 5-[address] [facility] Serum or plasma creatinine m easurement (mass/volume)Ordered By: Mary Ann Vazquez on 11-02-2022 Creatinine [Mass/Vol] 0.57 mg/dL 0.55-1.02 [facility] Comment on above: The validity of the calculated GFR & GFRAA in patients over 70 years has not been determined. Clinical correlation is essential. Serum or plasma low density lipoprotein (LDL) cholesterol measurement (mass/volume)Ordered By: [facility] on 11-02-2022 Cholesterol in LDL [Mass/Vol] 93 mg/dL 0-[address] [facility] Serum or plasma urea nitroge n measurement (mass/volume)Ordered By: [facility] on 11-02-2022 Urea nitrogen [Mass/Vol] 11 mg/dL 7-[address] [facility] Thin prep Papanicolaou smear with manual screeningOrdered By: [facility] on 11-02-2022 Thin prep Papanicolaou smear with manual screening 25 U/L 15-[address] [facility] Thin prep Papanicolaou smear with manual screening 4 5-[address] [facility] Basophil percentageOrdered B y: Bebe William on 09-09-2022 Bilirubin [Mass/Vol] 0.30 mg/dL 0.20-1.00 [facility] Comment on above: For patients on eltr ombopag therapy, use of Dimension [place] TBIL is not recommended. Chloride [Moles/Vol] 101 mmol/L 98-107 [facility] Glucose [Mass/Vol] 92 mg/dL 74-106 [facility] Potassium [Moles/Vol] 3.6 mmol/L 3.5-5.1 [facility] Protein [Mass/Vol] 7.3 g/dL 6.4-8.2 [facility] Sodium [Moles/Vol] 136 mmol/L 136-145 [facility] Laboratory - Chemistry and C hemistry - challengeOrdered By: Bebe William on 09-09-2022 ALP [Catalytic activity/Vol] 96 U/L 45-[address] [facility] ALT [Catalytic activity/Vol] 47 U/L 13-[address] [facility] CO2 [Moles/Vol] 27.0 mmol/L 21.0-32.[address] [facility] Globulin (S) [Mass/Vol] 3.8 g/dL 2.2-4.[address] [facility] Urea nitrogen/Creatinine [Mass ratio] 19.2 mg/mg 10-[address] [facility] No Panel InformationOrdered By: Bebe William on 09-09-2022 Estimated GFR (MDRD) Amer 139 mL/min >[address] [facility] Comment on above: GFR Calc Estimated GFR (MDRD) Non-Af Amer 115 mL/min >[address] [facility] Comment on above: Non- GFR Calc Vitamin D 25-Hydroxy 31.3 ng/mL [facility] Comment on above: Vitamin D 25(OH) Sta tus Range Deficiency <20 ng/mL (50nmol/L) Insufficiency 20 - 30 ng/mL (50 - 75 nmol/L) Sufficiency 30 - 100 ng/mL (75 - 250 nmol/L) Toxicity >100 ng/mL (>250 nmol/L) Serum or plasma albumin marco urement (mass/volume)Ordered By: Bebe William on 09-09-2022 Albumin [Mass/Vol] 3.5 g/dL 3.2-5.0 [facility] Serum or plasma albumin/glob ulin mass ratioOrdered By: Bebe William on 09-09-2022 Albumin/Globulin [Mass ratio] 0.9 {ratio} 0.9-2.[address] [facility] Serum or plasma calcium marco urement (mass/volume)Ordered By: Bebe William on 09-09-2022 Calcium [Mass/Vol] 8.8 mg/dL 8.5-10.1 [facility] Serum or plasma creatinine m easurement (mass/volume)Ordered By: Bebe William on 09-09-2022 Creatinine [Mass/Vol] 0.57 mg/dL 0.55-1.02 [facility] Comment on above: The validity of the calculated GFR & GFRAA in patients over 70 years has not been determined. Clinical correlation is essential. Serum or plasma urea nitroge n measurement (mass/volume)Ordered By: Bebe William on 09-09-2022 Urea nitrogen [Mass/Vol] 11 mg/dL 7-[address] [facility] Thin prep Papanicolaou smear with manual screeningOrdered By: Bebe William on 09-09-2022 Thin prep Papanicolaou smear with manual screening 31 U/L 15- [facility] Thin prep Papanicolaou smear with manual screening 8 5-[address] [facility] Whole blood hemoglobin A1c/t otal hemoglobin ratio (mass fraction)Ordered By: Bebe William on 09-09-2022 HbA1c (Bld) [Mass fraction] 5.8 % 3.8-5.[address] [facility] Comment on above: Normal < 5.7 % Predi abetic 5.7 - 6.4 % Diabetic >or= 6.5 % Please note range changes. Absolute lymphocyte countOrd ered By: Dr. Vazquez on 08-28-2022 Lymphocytes Auto (Unsp spec) [#/Vol] 2.76 10*3/uL 0.83-4.[address] [facility] Basophil percentageOrdered B y: Dr. Vazquez on 08-28-2022 Basophils/100 WBC (Bld) 0.4 % 0-[address] [facility] Bilirubin [Mass/Vol] 0.20 mg/dL 0.20-1.00 [facility] Comment on above: For patients on eltr ombopag therapy, use of Dimension [place] TBIL is not recommended. Chloride [Moles/Vol] 100 mmol/L 98-107 [facility] Eosinophils/100 WBC (Bld) 0.5 % 0-[address] [facility] Glucose [Mass/Vol] 126 mg/dL 74-106 [facility] Comment on above: Fasting Glucose resu lt greater than or equal to 126 mg/dL suggests DIABETES MELLITUS per A.D.A. criteria. Neutrophils (Bld) [#/Vol] 6.6 10*3/uL 2.0-7.[address] [facility] Neutrophils/100 WBC (Bld) 66.9 % 47-[address] [facility] Potassium [Moles/Vol] 3.2 mmol/L 3.5-5.1 [facility] Protein [Mass/Vol] 7.2 g/dL 6.4-8.2 [facility] Sodium [Moles/Vol] 136 mmol/L 136-145 [facility] WBC (Bld) [#/Vol] 9.9 10*3/uL 4.4-11.0 [facility] Blood erythrocytes count (nu mber/volume)Ordered By: Dr. Vazquez on 08-28-2022 RBC (Bld) [#/Vol] 4.19 10*6/uL 4.2-5.4 [facility] Blood hemoglobin measurement (mass/volume)Ordered By: Dr. Vazquez on 08-28-2022 Hemoglobin (Bld) [Mass/Vol] 13.7 g/dL 12.0-15.[address] [facility] Blood lymphocytes/100 leukoc ytesOrdered By: Dr. Vazquez on 08-28-2022 Lymphocytes/100 WBC (Bld) 28.0 % 19-[address] [facility] Blood monocytes/100 leukocyt esOrdered By: Dr. Vazquez on 08-28-2022 Monocytes/100 WBC (Bld) 3.7 % 0-[address] [facility] Blood platelet mean volumeOr dered By: Dr. Vazquez on 08-28-2022 Platelet mean volume (Bld) [Entitic vol] 9.5 fL 6.2-12.[address] [facility] Determination of erythrocyte mean corpuscular volume (MCV)Ordered By: Dr. Vazquez on 08-28-2022 MCV (RBC) [Entitic vol] 97.6 fL 81-[address] [facility] Hematocrit Auto (Bld) [Volum e fraction]Ordered By: Dr. Vazquez on 08-28-2022 Hematocrit (Bld) [Volume fraction] 40.9 % 37-[address] [facility] Laboratory - Chemistry and C hemistry - challengeOrdered By: Dr. Vazquez on 08-28-2022 ALP [Catalytic activity/Vol] 104 U/L 45-[address] [facility] ALT [Catalytic activity/Vol] 34 U/L 13-[address] [facility] CO2 [Moles/Vol] 27.0 mmol/L 21.0-32.[address] [facility] Globulin (S) [Mass/Vol] 3.5 g/dL 2.2-4.[address] [facility] Urea nitrogen/Creatinine [Mass ratio] 15.8 mg/mg 10-[address] [facility] Laboratory - Hematology and Cell countsOrdered By: Dr. Vazquez on 08-28-2022 Erythrocyte distribution width (RBC) [Entitic vol] 45.6 fL 35.1-43.[address] [facility] Erythrocyte distribution width (RBC) [Ratio] 12.8 % 11.6-14.[address] [facility] Immature granulocytes/100 WBC (Bld) 0.500 % 0.0-0.[address] [facility] Comment on above: IG% - Immature Granu locytes (promyelocytes, myelocytes and metamyelocytes) > 1% indicates that a LEFT SHIFT is Present. MCH (RBC) [Entitic mass] 32.7 pg 27.0-32.[address] [facility] Nucleated RBC/100 WBC (Bld) [Ratio] 0 % 0-[address] [facility] MCHC Auto (RBC) [Mass/Vol]Or dered By: Dr. Vazquez on 08-28-2022 MCHC (RBC) [Mass/Vol] 33.5 g/dL 32-36 [facility] No Panel InformationOrdered By: Dr. Vazquez on 08-28-2022 Estimated GFR (MDRD) Amer 124 mL/min >[address] [facility] Comment on above: GFR Calc Estimated GFR (MDRD) Non-Af Amer 103 mL/min >[address] [facility] Comment on above: Non- GFR Calc Platelets bldOrdered By: Dr. Vazquez on 08-28-2022 Platelets (Bld) [#/Vol] 326 10*3/uL 150-[address] [facility] Serum or plasma albumin marco urement (mass/volume)Ordered By: Dr. Vazquez on 08-28-2022 Albumin [Mass/Vol] 3.7 g/dL 3.2-5.0 [facility] Serum or plasma albumin/glob ulin mass ratioOrdered By: Dr. Vazquez on 08-28-2022 Albumin/Globulin [Mass ratio] 1.1 {ratio} 0.9-2.[address] [facility] Serum or plasma calcium marco urement (mass/volume)Ordered By: Dr. Vazquez on 08-28-2022 Calcium [Mass/Vol] 9.4 mg/dL 8.5-10.1 [facility] Serum or plasma creatinine m easurement (mass/volume)Ordered By: Dr. Vazquez on 08-28-2022 Creatinine [Mass/Vol] 0.63 mg/dL 0.55-1.02 [facility] Comment on above: The validity of the calculated GFR & GFRAA in patients over 70 years has not been determined. Clinical correlation is essential. Serum or plasma urea nitroge n measurement (mass/volume)Ordered By: Dr. Vazquez on 08-28-2022 Urea nitrogen [Mass/Vol] 10 mg/dL 7-[address] [facility] Thin prep Papanicolaou smear with manual screeningOrdered By: Dr. Vazquez on 08-28-2022 Thin prep Papanicolaou smear with manual screening 26 U/L 15-[address] [facility] Thin prep Papanicolaou smear with manual screening 9 5-[address] [facility] Absolute lymphocyte countOrd ered By: Dr. Vazquez on 07-09-2022 Lymphocytes Auto (Unsp spec) [#/Vol] 1.65 10*3/uL 0.83-4.[address] [facility] Basophil percentageOrdered B y: Dr. Vazquez on 07-09-2022 Basophils/100 WBC (Bld) 0.7 % 0-[address] [facility] Bilirubin [Mass/Vol] 0.20 mg/dL 0.20-1.00 [facility] Comment on above: For patients on eltr ombopag therapy, use of Dimension [place] TBIL is not recommended. Chloride [Moles/Vol] 102 mmol/L 98-107 [facility] Eosinophils/100 WBC (Bld) 0.5 % 0-[address] [facility] Glucose [Mass/Vol] 117 mg/dL 74-106 [facility] Comment on above: Fasting Glucose resu lt from 100 to 125 mg/dL suggests IMPAIRED HOMEOSTASIS per A.D.A. criteria. Neutrophils (Bld) [#/Vol] 3.5 10*3/uL 2.0-7.[address] [facility] Neutrophils/100 WBC (Bld) 63.2 % 47-[address] [facility] Potassium [Moles/Vol] 4.1 mmol/L 3.5-5.1 [facility] Protein [Mass/Vol] 7.3 g/dL 6.4-8.2 [facility] Sodium [Moles/Vol] 136 mmol/L 136-145 [facility] WBC (Bld) [#/Vol] 5.6 10*3/uL 4.4-11.0 [facility] Blood erythrocytes count (nu mber/volume)Ordered By: Dr. Vazquez on 07-09-2022 RBC (Bld) [#/Vol] 4.13 10*6/uL 4.2-5.4 [facility] Blood hemoglobin measurement (mass/volume)Ordered By: Dr. Vazquez on 07-09-2022 Hemoglobin (Bld) [Mass/Vol] 13.3 g/dL 12.0-15.[address] [facility] Blood lymphocytes/100 leukoc ytesOrdered By: Dr. Vazquez on 07-09-2022 Lymphocytes/100 WBC (Bld) 29.5 % 19-[address] [facility] Blood monocytes/100 leukocyt esOrdered By: Dr. Vazquez on 07-09-2022 Monocytes/100 WBC (Bld) 5.9 % 0-[address] [facility] Blood platelet mean volumeOr dered By: Dr. Vazquez on 07-09-2022 Platelet mean volume (Bld) [Entitic vol] 9.1 fL 6.2-12.[address] [facility] Determination of erythrocyte mean corpuscular volume (MCV)Ordered By: Dr. Vazquez on 07-09-2022 MCV (RBC) [Entitic vol] 97.3 fL 81-[address] [facility] Hematocrit Auto (Bld) [Volum e fraction]Ordered By: Dr. Vazquez on 07-09-2022 Hematocrit (Bld) [Volume fraction] 40.2 % 37-[address] [facility] Laboratory - Chemistry and C hemistry - challengeOrdered By: Dr. Vazquez on 07-09-2022 ALP [Catalytic activity/Vol] 104 U/L 45-[address] [facility] ALT [Catalytic activity/Vol] 32 U/L 13-[address] [facility] CO2 [Moles/Vol] 27.0 mmol/L 21.0-32.[address] [facility] Globulin (S) [Mass/Vol] 3.6 g/dL 2.2-4.[address] [facility] Urea nitrogen/Creatinine [Mass ratio] 21.2 mg/mg 10-[address] [facility] Laboratory - Hematology and Cell countsOrdered By: Dr. Vazquez on 07-09-2022 Erythrocyte distribution width (RBC) [Entitic vol] 44.1 fL 35.1-43.[address] [facility] Erythrocyte distribution width (RBC) [Ratio] 12.3 % 11.6-14.[address] [facility] Immature granulocytes/100 WBC (Bld) 0.200 % 0.0-0.[address] [facility] Comment on above: IG% - Immature Granu locytes (promyelocytes, myelocytes and metamyelocytes) > 1% indicates that a LEFT SHIFT is Present. MCH (RBC) [Entitic mass] 32.2 pg 27.0-32.[address] [facility] Nucleated RBC/100 WBC (Bld) [Ratio] 0 % 0-[address] [facility] MCHC Auto (RBC) [Mass/Vol]Or dered By: Dr. Vazquez on 07-09-2022 MCHC (RBC) [Mass/Vol] 33.1 g/dL 32-36 [facility] No Panel InformationOrdered By: Dr. Vazquez on 07-09-2022 Estimated GFR (MDRD) Amer 156 mL/min >[address] [facility] Comment on above: GFR Calc Estimated GFR (MDRD) Non-Af Amer 129 mL/min >[address] [facility] Comment on above: Non- GFR Calc Hepatitis B Surface Antigen Non-Reactive Nonreactive [facility] Hepatitis C Antibody Non-Reactive Nonreactive W [facility] Comment on above: Non Reactive: < 0.8 Equivocal: >/= 0.8 to < 1.0 Reactive: >/= 1.0The CDC recommends that a reactive/equivocal HCV antibody result be followed up by the HCV Nucleic Acid Amplificationtest (314944) Platelets bldOrdered By: Dr. Vazquez on 07-09-2022 Platelets (Bld) [#/Vol] 298 10*3/uL 150-[address] [facility] Serum cyclic citrullinated p eptide IgG antibody assay (units/volume)Ordered By: Dr. Vazquez on 07-09-2022 Cyclic citrullinated peptide IgG Qn 3 units 0-[address] [facility] Comment on above: Negative <20 Weak po sitive 20 - 39 Moderate positive 40 - 59 Strong positive >59Performed at: [facility] [id number] Director: Patrick Auguste PhD, Phone: [phone] Serum hepatitis B virus surf [place] antibody IgG detectionOrdered By: Dr. Vazquez on 07-09-2022 HBV surface IgG Ql (S) Non-Reactive [facility] Comment on above: Non Reactive: Incons istent with immunity less than <10 mIU/mL Reactive: Consistent with immunity greater than or equal to 10 mIU/mL Serum or plasma albumin marco urement (mass/volume)Ordered By: Dr. Vazquez on 07-09-2022 Albumin [Mass/Vol] 3.7 g/dL 3.2-5.0 [facility] Serum or plasma albumin/glob ulin mass ratioOrdered By: Dr. Vazquez on 07-09-2022 Albumin/Globulin [Mass ratio] 1.0 {ratio} 0.9-2.[address] [facility] Serum or plasma calcium marco urement (mass/volume)Ordered By: Dr. Vazquez on 07-09-2022 Calcium [Mass/Vol] 9.1 mg/dL 8.5-10.1 [facility] Serum or plasma creatinine m easurement (mass/volume)Ordered By: Dr. Vazquez on 07-09-2022 Creatinine [Mass/Vol] 0.52 mg/dL 0.55-1.02 [facility] Comment on above: The validity of the calculated GFR & GFRAA in patients over 70 years has not been determined. Clinical correlation is essential. Serum or plasma urea nitroge n measurement (mass/volume)Ordered By: Dr. Vazquez on 07-09-2022 Urea nitrogen [Mass/Vol] 11 mg/dL 7-[address] [facility] Serum rheumatoid factor dete ctionOrdered By: Dr. Vazquez on 07-09-2022 Rheumatoid factor Ql (S) < 10.0 IU/mL <[address] [facility] Thin prep Papanicolaou smear with manual screeningOrdered By: Dr. Vazquez on 07-09-2022 Thin prep Papanicolaou smear with manual screening 22 U/L 15-[address] [facility] Thin prep Papanicolaou smear with manual screening 7 5-[address] [facility] Erythrocyte sedimentation ra teOrdered By: Carmen Snow on 04-23-2022 ESR (Bld) [Velocity] 31 mm/h 0-30 [facility] Laboratory - Chemistry and C hemistry - challengeOrdered By: Carmen Snow on 04-23-2022 Cobalamin (Vitamin B12) [Mass/Vol] 564 pg/mL 211-[address] [facility] No Panel InformationOrdered By: Carmen Snow on 04-23-2022 Anti-Nuclear Antibody Screen Negative Negative [facility] Comment on above: Performed at: [facility] [address] [id number] Director: Patrick Auguste PhD, Phone: [phone] Thyroid Stimulating Hormone (TSH) 1.58 uIU/mL 0.358-3.[address] [facility] Serum cyclic citrullinated p eptide IgG antibody assay (units/volume)Ordered By: Carmen Snow on 04-23-2022 Cyclic citrullinated peptide IgG Qn 7 units 0-[address] [facility] Comment on above: Negative <20 Weak po sitive 20 - 39 Moderate positive 40 - 59 Strong positive >59Performed at: [facility] [id number] [place], [place] [id number] Director: Mauro Shrestha PhD, Phone: [phone] at: [facility] [address] [id number] Director: Patrick Auguste PhD, Phone: [phone] Serum or plasma C reactive p rotein measurement (mass/volume)Ordered By: Carmen Snow on 04-23-2022 CRP [Mass/Vol] 8.67 mg/L 0.0-3.[address] [facility] Comment on above: C-Reactive Protein ( CRP) provides useful information for thediagnosis, therapy and monitoring of inflammatory processesand associated diseases. For the evaluation of Relative Riskfor Cardiovascular Disease, a High Sensitivity CRP (HSCRP)should be ordered. Serum rheumatoid factor dete ctionOrdered By: Carmen Snow on 04-23-2022 Rheumatoid factor Ql (S) < 10.0 IU/mL <[address] [facility] Thin prep Papanicolaou smear with manual screeningOrdered By: Carmen Snow on 04-23-2022 Thin prep Papanicolaou smear with manual screening Negative . [facility] Comment on above: HLA-B*27 [id number] allele interpretation for all loci based on IMGT/HLAdatabase version 3.44This test was developed and its performance characteristicsdetermined by [employer]. It has not been cleared or approvedby the Food and Drug Administration.[facility] CLIA ID Number [id number] test was performed using PCR (Polymerase ChainReaction)/SSOP (Sequence Specific Oligonucleotide Probes)technique. SBT (Sequence Based Typing) and/or SSP(Sequence Specific Primers) may be used as supplementalmethods when necessary. Please contact [facility] at if you have any questions. Director of [facility] Dr Mauro Shrestha, PhD Absolute lymphocyte counton 02-08-2022 Lymphocytes Auto (Unsp spec) [#/Vol] 1.14 10*3/uL 0.83-4.[address] [facility] Work Phone: Basophil percentageon 2021 Basophils/100 WBC (Bld) 0.5 % 0-[address] [facility] Work Phone: Chloride [Moles/Vol] 99 mmol/L 98-107 [facility] Work Phone: Eosinophils/100 WBC (Bld) 0.5 % 0-[address] [facility] Work Phone: Glucose [Mass/Vol] 137 mg/dL 74-106 [facility] Work Phone: Comment on above: Fasting Glucose resu lt greater than or equal to 126 mg/dL suggests DIABETES MELLITUS per A.D.A. criteria. Neutrophils (Bld) [#/Vol] 2.7 10*3/uL 2.0-7.[address] [facility] Work Phone: Neutrophils/100 WBC (Bld) 63.5 % 47-[address] [facility] Work Phone: Potassium [Moles/Vol] 3.6 mmol/L 3.5-5.1 [facility] Work Phone: Sodium [Moles/Vol] 134 mmol/L 136-145 [facility] Work Phone: WBC (Bld) [#/Vol] 4.3 10*3/uL 4.4-11.0 [facility] Work Phone: Blood erythrocytes count (nu mber/volume)on 02-08-2022 RBC (Bld) [#/Vol] 3.97 10*6/uL 4.2-5.4 [facility] Work Phone: Blood hemoglobin measurement (mass/volume)on 02-08-2022 Hemoglobin (Bld) [Mass/Vol] 13.4 g/dL 12.0-15.[address] [facility] Work Phone: Blood lymphocytes/100 leukoc yteson 02-08-2022 Lymphocytes/100 WBC (Bld) 26.6 % 19-[address] [facility] Work Phone: Blood monocytes/100 leukocyt eson 02-08-2022 Monocytes/100 WBC (Bld) 8.4 % 0-[address] [facility] Work Phone: Blood platelet mean volumeon 02-08-2022 Platelet mean volume (Bld) [Entitic vol] 9.3 fL 6.2-12.[address] [facility] Work Phone: Determination of erythrocyte mean corpuscular volume (MCV)on 02-08-2022 MCV (RBC) [Entitic vol] 99.0 fL 81-[address] [facility] Work Phone: Hematocrit Auto (Bld) [Volum e fraction]on 02-08-2022 Hematocrit (Bld) [Volume fraction] 39.3 % 37-[address] [facility] Work Phone: Laboratory - Chemistry and C hemistry - challengeon 02-08-2022 CO2 [Moles/Vol] 27.0 mmol/L 21.0-32.[address] [facility] Work Phone: Urea nitrogen/Creatinine [Mass ratio] 13.6 mg/mg 10-[address] [facility] Work Phone: Laboratory - Hematology and Cell countson 02-08-2022 Erythrocyte distribution width (RBC) [Entitic vol] 46.4 fL 35.1-43.[address] [facility] Work Phone: Erythrocyte distribution width (RBC) [Ratio] 12.8 % 11.6-14.[address] [facility] Work Phone: Immature granulocytes/100 WBC (Bld) 0.500 % 0.0-0.[address] [facility] Work Phone: Comment on above: IG% - Immature Granu locytes (promyelocytes, myelocytes and metamyelocytes) > 1% indicates that a LEFT SHIFT is Present. MCH (RBC) [Entitic mass] 33.8 pg 27.0-32.[address] [facility] Work Phone: Nucleated RBC/100 WBC (Bld) [Ratio] 0 % 0-[address] [facility] Work Phone: MCHC Auto (RBC) [Mass/Vol]on 02-08-2022 MCHC (RBC) [Mass/Vol] 34.1 g/dL 32-36 [facility] Work Phone: No Panel Informationon 02-08 Estimated GFR (MDRD) Amer 135 mL/min >[address] [facility] Work Phone: Comment on above: GFR Calc Estimated GFR (MDRD) Non-Af Amer 112 mL/min >[address] [facility] Work Phone: Comment on above: Non- GFR Calc Platelets bldon 02-08-2022 Platelets (Bld) [#/Vol] 263 10*3/uL 150-[address] [facility] Work Phone: Serum or plasma calcium marco urement (mass/volume)on 02-08-2022 Calcium [Mass/Vol] 8.8 mg/dL 8.5-10.1 [facility] Work Phone: Serum or plasma creatinine m easurement (mass/volume)on 02-08-2022 Creatinine [Mass/Vol] 0.59 mg/dL 0.55-1.02 [facility] Work Phone: Comment on above: The validity of the calculated GFR & GFRAA in patients over 70 years has not been determined. Clinical correlation is essential. Serum or plasma urea nitroge n measurement (mass/volume)on 02-08-2022 Urea nitrogen [Mass/Vol] 8 mg/dL 7-[address] [facility] Work Phone: Thin prep Papanicolaou smear with manual screeningon 02-08-2022 Thin prep Papanicolaou smear with manual screening 8 5-[address] [facility] Work Phone: CONSTANCE SCREENING W TOMOon 11-15 [facility] OPERATIVE PROCEDURESon 11-01 OPERATIVE PROCEDURES [facility] OPERATIVE REPORT NAME ACCOUNT SEX AGE ADMIT DISCHARGE PT MED. RECORD# NUMBER DATE DATE TYPE REYMUNDO BLANKENSHIP [id number] F 56 10/26/21 2 L [id number] ROOM: [facility] DATE OF : 1965 DICTATING PHYSICIAN: Manju Russell DATE OF SURGERY: October 26, 2021 SURGEON: Manju Russell DPM SENIOR NURSE MANAGER: None. ANESTHESIOLOGIST: Jayant Evans CRNA ANESTHETIC: General [...] Manju Russell DPM 10/26/21 08:51 JOB #: [id number] Transcribed By: isadora 10/26/21 09:49 Electronically signed by: E-SIGN MANJU RUSSELL 11/01/21 07:16 Page 2 of 2 REYMUNDO BLANKENSHIP Operative Report [facility] Final Surgical Pathology Rep [facility] 10-31-2021 Final Surgical Pathology Report . Pathology Reports Accession: Collected Date/Time: Received Date/Time: Pathologist: [id number] 10/26/2021 07:43 EDT 10/30/2021 10:07 EDT GI TSE MD Final Surgical Pathology Report DIAGNOSIS: A) SOFT TISSUE, LEFT FOOT - MORALES'S NEUROMA. B) SOFT TISSUE, REARFOOT - LIPOMA. COMMENT: [facility] [id number] CLINICAL INFORMATION: LESION PLANTAR NERVE LEFT LOWER [...] Electronically Signed by Pathology Report verified by [facility] Electronically signed by GI TSE Sign out Date: 10/31/2021 15:37 Performing Lab: [facility], [address] [place] [id number] [place] [address] ([place]) Absolute lymphocyte counton 10-02-2021 Lymphocytes Auto (Unsp spec) [#/Vol] 2.33 10*3/uL 0.83-4.[address] [facility] Work Phone: [phone] Basophil percentageon 2021 Basophils/100 WBC (Bld) 0.4 % 0-[address] [facility] Work Phone: [phone] Bilirubin [Mass/Vol] 0.30 mg/dL 0.20-1.00 [facility] Work Phone: Comment on above: For patients on eltr ombopag therapy, use of Dimension [place] TBIL is not recommended. Chloride [Moles/Vol] 95 mmol/L 98-107 [facility] Work Phone: [phone] Eosinophils/100 WBC (Bld) 0.3 % 0-[address] [facility] Work Phone: Glucose [Mass/Vol] 93 mg/dL 74-106 [facility] Work Phone: Neutrophils (Bld) [#/Vol] 4.7 10*3/uL 2.0-7.[address] [facility] Work Phone: Neutrophils/100 WBC (Bld) 62.5 % 47-[address] [facility] Work Phone: [phone] Potassium [Moles/Vol] 4.0 mmol/L 3.5-5.1 [facility] Work Phone: [phone] Protein [Mass/Vol] 7.7 g/dL 6.4-8.2 [facility] Work Phone: [phone] Sodium [Moles/Vol] 130 mmol/L 136-145 [facility] Work Phone: [phone] WBC (Bld) [#/Vol] 7.5 10*3/uL 4.4-11.0 [facility] Work Phone: [phone] Blood erythrocytes count (nu mber/volume)on 10-02-2021 RBC (Bld) [#/Vol] 4.04 10*6/uL 4.2-5.4 [facility] Work Phone: Blood hemoglobin measurement (mass/volume)on 10-02-2021 Hemoglobin (Bld) [Mass/Vol] 13.4 g/dL 12.0-15.[address] [facility] Work Phone: Blood lymphocytes/100 leukoc yteson 10-02-2021 Lymphocytes/100 WBC (Bld) 31.2 % 19-[address] [facility] Work Phone: [phone] Blood monocytes/100 leukocyt eson 10-02-2021 Monocytes/100 WBC (Bld) 5.2 % 0-[address] [facility] Work Phone: Blood platelet mean volumeon 10-02-2021 Platelet mean volume (Bld) [Entitic vol] 9.8 fL 6.2-12.[address] [facility] Work Phone: Determination of erythrocyte mean corpuscular volume (MCV)on 10-02-2021 MCV (RBC) [Entitic vol] 97.8 fL 81-[address] [facility] Work Phone: Hematocrit Auto (Bld) [Volum e fraction]on 10-02-2021 Hematocrit (Bld) [Volume fraction] 39.5 % 37-[address] [facility] Work Phone: Laboratory - Chemistry and C hemistry - challengeon 10-02-2021 ALP [Catalytic activity/Vol] 92 U/L 45-[address] [facility] Work Phone: ALT [Catalytic activity/Vol] 40 U/L 13-[address] [facility] Work Phone: CO2 [Moles/Vol] 27.0 mmol/L 21.0-32.[address] [facility] Work Phone: Globulin (S) [Mass/Vol] 3.7 g/dL 2.2-4.[address] [facility] Work Phone: [phone] Urea nitrogen/Creatinine [Mass ratio] 15.1 mg/mg 10-[address] [facility] Work Phone: Laboratory - Hematology and Cell countson 10-02-2021 Erythrocyte distribution width (RBC) [Entitic vol] 43.2 fL 35.1-43.[address] [facility] Work Phone: Erythrocyte distribution width (RBC) [Ratio] 11.9 % 11.6-14.[address] [facility] Work Phone: Immature granulocytes/100 WBC (Bld) 0.400 % 0.0-0.[address] [facility] Work Phone: Comment on above: IG% - Immature Granu locytes (promyelocytes, myelocytes and metamyelocytes) > 1% indicates that a LEFT SHIFT is Present. MCH (RBC) [Entitic mass] 33.2 pg 27.0-32.[address] [facility] Work Phone: Nucleated RBC/100 WBC (Bld) [Ratio] 0 % 0-[address] [facility] Work Phone: MCHC Auto (RBC) [Mass/Vol]on 10-02-2021 MCHC (RBC) [Mass/Vol] 33.9 g/dL 32-36 [facility] Work Phone: No Panel Informationon 10-02 Estimated GFR (MDRD) Amer 118 mL/min >[address] [facility] Work Phone: Comment on above: GFR Calc Estimated GFR (MDRD) Non-Af Amer 97 mL/min >[address] [facility] Work Phone: Comment on above: Non- GFR Calc Platelets bldon 10-02-2021 Platelets (Bld) [#/Vol] 301 10*3/uL 150-[address] [facility] Work Phone: Serum or plasma albumin marco urement (mass/volume)on 10-02-2021 Albumin [Mass/Vol] 4.0 g/dL 3.2-5.0 [facility] Work Phone: Serum or plasma albumin/glob ulin mass ratioon 10-02-2021 Albumin/Globulin [Mass ratio] 1.1 {ratio} 0.9-2.[address] [facility] Work Phone: Serum or plasma calcium marco urement (mass/volume)on 10-02-2021 Calcium [Mass/Vol] 9.2 mg/dL 8.5-10.1 [facility] Work Phone: Serum or plasma creatinine m easurement (mass/volume)on 10-02-2021 Creatinine [Mass/Vol] 0.66 mg/dL 0.55-1.02 [facility] Work Phone: Comment on above: The validity of the calculated GFR & GFRAA in patients over 70 years has not been determined. Clinical correlation is essential. Serum or plasma urea nitroge n measurement (mass/volume)on 10-02-2021 Urea nitrogen [Mass/Vol] 10 mg/dL 7-[address] [facility] Work Phone: Thin prep Papanicolaou smear with manual screeningon 10-02-2021 Thin prep Papanicolaou smear with manual screening 32 U/L 15-[address] [facility] Work Phone: Thin prep Papanicolaou smear with manual screening 8 5-[address] [facility] Work Phone: FOOT COMPLETE LTon 1 FOOT COMPLETE LT [place] [address] Patient: REYMUNDO BLANKENSHIP Phone#: : 1965 Age: 55 Gender: F Pt. Type: Out Account: [id number] Location: [facility] Ordering: MANJU RUSSELL Exam Date: 12/11/2020/9:05 Family Phys: Charge Code: 584883 Physician: [place] Order #: [id number] DLP Dose#: PROCEDURE: X-RAY FOOT LT COMPLETE MIN 3 VIEWS COMPARISON: [facility], XR, FOOT LT COMPLETE, 11/07/2020, [...] Guillen MD on 12/11/2020 at 16:48 [facility] EMERGENCY REPORTon EMERGENCY REPORT [facility] EMERGENCY ROOM REPORT NAME ACCOUNT SEX AGE ADMIT DISCHARGE PT MED. RECORD# NUMBER DATE DATE REYMUNDO RENTERIA [id number] Eddie 55 11/07/20 11/07/20 3 L [id number] ROOM: ER DATE OF : 1965 DICTATING [...] to erythromycin. PCP is Dr. Toney from [place]. REVIEW OF SYSTEMS: Denies any chest pain, [...] No guarding, rigidity, Page 1 of 2 MILY REYMUNDO Aaron Emergency Room Report REYMUNDO BLANKENSHIP : 1965 [...] Ciro Rooney DO 11/07/20 19:39 JOB #: [id number] Transcribed By: michelle 11/08/20 15:20 Electronically signed by: E-Sign: Dr. Ciro Rooney D.O. 11/11/20 04:05 Page 2 of 2 MILY REYMUNDO Walker Emergency Room Report [facility] EMERGENCY REPORT [facility] EMERGENCY ROOM REPORT NAME ACCOUNT SEX AGE ADMIT DISCHARGE PT MED. RECORD# NUMBER DATE DATE TYPE REYMUNDO BLANKENSHIP [id number] F 55 11/07/20 11/07/20 3 L [id number] ROOM: ER DATE OF : 1965 DICTATING [...] use the crutches. I referred her to [facility] for followup if her symptoms do not improve. She does seen Dr. Héctor Toney at [address] [place] [address]. [address] [facility] [address], phone [phone]. She can follow up with her family [...] Ciro Rooney DO 11/07/20 20:49 JOB #: [id number] Transcribed By: michelle 11/08/20 16:24 Electronically signed by: E-Sign: Dr. Ciro Rooney D.O. 11/11/20 04:01 Page 1 of 1 REYMUNDO BLANKENSHIP Emergency Room Report [facility] ANKLE COMPLETE LTon 11-08-19 ANKLE COMPLETE [place] [address] Patient: REYMUNDO BLANKENSHIP. Phone#: : 1965 Age: 55 Gender: F Pt. Type: ER Account: [id number] Location: 052 Ordering: CIRO ROONEY Exam Date: 11/07/2020/19:37 Family Phys: Charge Code: [id number] Physician: Houghton Order #: [id number] DLP Dose#: PROCEDURE: X-RAY ANKLE COMPLETE LT [...] Napier MD on 11/08/2020 at 8:44 [facility] FOOT COMPLETE LTon FOOT COMPLETE [place] [address] Patient: REYMUNDO BLANKENSHIP Phone#: : 1965 Age: 55 Gender: F Pt. Type: ER Account: [id number] Location: [facility] Ordering: CIRO ROONEY Exam Date: 11/07/2020/19:39 Family Phys: Charge Code: [id number] Physician: Houghton Order #: [id number] DLP Dose#: PROCEDURE: X-RAY FOOT LT COMPLETE [...] Napier MD on 11/08/2020 at 8:50 [facility] Vital Signs Date Time Vital Sign Value Performing Clinician Faci lity 12-28-2024 08:26-0400 Body height 154.94 cm Nahtanael Frazier MD Work Phone: [facility] 12-28-2024 08:26-0400 Body mass index (BMI) [Ratio] 29.4 kg/m2 Nathanael Frazier MD Work Phone: [facility] 12-28-2024 08:26-0400 Body temperature 98.6 [degF] Nathanael Frazier MD Work Phone: [facility] 12-28-2024 08:26-0400 Body weight 70.67 kg Nathanael Frazier MD Work Phone: [facility] 12-28-2024 08:26-0400 Diastolic blood pressure 73 mm[Hg] Nathanael Frazier MD Work Phone: [facility] 12-28-2024 08:26-0400 Heart rate 59 /min Nathanael Frazier MD Work Phone: [facility] 12-28-2024 08:26-0400 Respiratory rate 16 /min Nathanael Frazier MD Work Phone: [facility] 12-28-2024 08:26-0400 SaO2% (BldA) [Mass fraction] 97 % Nathanael Frazier MD Work Phone: [facility] 12-28-2024 08:26-0400 Systolic blood pressure 120 mm[Hg] Nathanael Frazier MD Work Phone: [facility] 12-10-2024 10:41-0400 Body height 154.9 cm Reny Randle CNP Work Phone: [facility] 12-10-2024 10:41-0400 Body mass index (BMI) [Ratio] 28.68 kg/m2 Reny Randle CNP Work Phone: [facility] 12-10-2024 10:41-0400 Body temperature 97.3 [degF] Reny Randle CNP Work Phone: [facility] 12-10-2024 10:41-0400 Body weight 68.86 kg Reny Randle CNP Work Phone: [facility] 12-10-2024 10:41-0400 Diastolic blood pressure 57 mm[Hg] Reny Randle CNP Work Phone: [facility] [employer] 12-10-2024 10:41-0400 Heart rate 72 /min Reny Markham JEWELRY STORE MANAGER - MECHANICAL MAINTENANCE WORKER Work Phone: [facility] 12-10-2024 10:41-0400 Respiratory rate 12 /min Reny Markham JEWELRY STORE MANAGER - MECHANICAL MAINTENANCE WORKER Work Phone: [facility] 12-10-2024 10:41-0400 Systolic blood pressure 88 mm[Hg] Reny Markham JEWELRY STORE MANAGER - MECHANICAL MAINTENANCE WORKER Work Phone: [facility] 12-10-2024 09:33-0400 Body height 154.9 cm Reny Markham JEWELRY STORE MANAGER - MECHANICAL MAINTENANCE WORKER Work Phone: [facility] 12-10-2024 09:33-0400 Body mass index (BMI) [Ratio] 28.91 kg/m2 Reny Markham JEWELRY STORE MANAGER - MECHANICAL MAINTENANCE WORKER Work Phone: [facility] 12-10-2024 09:33-0400 Body weight 69.4 kg Reny Khanw JEWELRY STORE MANAGER - MECHANICAL MAINTENANCE WORKER Work Phone: [facility] 11-04-2024 08:49-0400 Body height 154.94 cm Nathanael Frazier MD Work Phone: [facility] 11-04-2024 08:49-0400 Body mass index (BMI) [Ratio] 28.9 kg/m2 Nathanael Frazier MD Work Phone: [facility] 11-04-2024 08:49-0400 Body temperature 98 [degF] Nathanael Frazier MD Work Phone: [facility] 11-04-2024 08:49-0400 Body weight 69.39 kg Nathanael Frazier MD Work Phone: [facility] 11-04-2024 08:49-0400 Diastolic blood pressure 75 mm[Hg] Nathanael Frazier MD Work Phone: [facility] 11-04-2024 08:49-0400 Heart rate 63 /min Nathanael Frazier MD Work Phone: [facility] 11-04-2024 08:49-0400 Respiratory rate 16 /min Nathanael Frazier MD Work Phone: [facility] 11-04-2024 08:49-0400 SaO2% (BldA) [Mass fraction] 96 % Nathanael Frazier MD Work Phone: [facility] 11-04-2024 08:49-0400 Systolic blood pressure 114 mm[Hg] Nathanael Frazier MD Work Phone: [facility] 03-05-2024 15:21-0500 Body height 154.2 cm Jade [place] JEWELRY STORE MANAGER.MECHANICAL MAINTENANCE WORKER Work Phone: [facility] 03-05-2024 15:21-0500 Body mass index (BMI) [Ratio] 29.19 kg/m2 Jade [place] JEWELRY STORE MANAGER.MECHANICAL MAINTENANCE WORKER Work Phone: [facility] 03-05-2024 15:21-0500 Body weight 69.4 kg Jade [place] JEWELRY STORE MANAGER.MECHANICAL MAINTENANCE WORKER Work Phone: [facility] 12-09-2023 10:29-0400 Body height 154.9 cm Reny Markham APRN - MECHANICAL MAINTENANCE WORKER Work Phone: [facility] [employer] 12-09-2023 10:29-0400 Body mass index (BMI) [Ratio] 27.78 kg/m2 Reny Markham APRN - MECHANICAL MAINTENANCE WORKER Work Phone: [facility] 12-09-2023 10:29-0400 Body temperature 97.7 [degF] Reny Markham APRN - MECHANICAL MAINTENANCE WORKER Work Phone: [facility] [employer] 12-09-2023 10:29-0400 Body weight 66.68 kg Reny Markham APRN - MECHANICAL MAINTENANCE WORKER Work Phone: [facility] [employer] 12-09-2023 10:29-0400 Diastolic blood pressure 59 mm[Hg] Reny Markham APRN - MECHANICAL MAINTENANCE WORKER Work Phone: [facility] 12-09-2023 10:29-0400 Heart rate 61 /min Reny Markham APRN - MECHANICAL MAINTENANCE WORKER Work Phone: [facility] [employer] 12-09-2023 10:29-0400 Respiratory rate 12 /min Reny Khanw JEWELRY STORE MANAGER - MECHANICAL MAINTENANCE WORKER Work Phone: [facility] [employer] 12-09-2023 10:29-0400 Systolic blood pressure 102 mm[Hg] Reny Fletcher JEWELRY STORE MANAGER - MECHANICAL MAINTENANCE WORKER Work Phone: [facility] [employer] 12-09-2023 09:58-0400 Body height 156.2 cm Reny Fletcher JEWELRY STORE MANAGER - MECHANICAL MAINTENANCE WORKER Work Phone: [facility] 12-09-2023 09:58-0400 Body mass index (BMI) [Ratio] 28.63 kg/m2 Reny Fletcher JEWELRY STORE MANAGER - MECHANICAL MAINTENANCE WORKER Work Phone: [facility] [employer] 12-09-2023 09:58-0400 Body weight 69.85 kg Renymarsha Khanw JEWELRY STORE MANAGER - MECHANICAL MAINTENANCE WORKER Work Phone: [facility] 11-24-2023 11:36-0400 Body height 154.9 cm Vernell Florentin JEWELRY STORE MANAGER.MECHANICAL MAINTENANCE WORKER Work Phone: [facility] 11-24-2023 11:36-0400 Body mass index (BMI) [Ratio] 27.81 kg/m2 Vernell Florentin JEWELRY STORE MANAGER.MECHANICAL MAINTENANCE WORKER Work Phone: [facility] 11-24-2023 11:36-0400 Body temperature 98.1 [degF] Vernell Florentin JEWELRY STORE MANAGER.MECHANICAL MAINTENANCE WORKER Work Phone: [facility] 11-24-2023 11:36-0400 Body weight 66.77 kg Vernell Florentin JEWELRY STORE MANAGER.MECHANICAL MAINTENANCE WORKER Work Phone: [facility] 11-24-2023 11:36-0400 Diastolic blood pressure 72 mm[Hg] Vernell Florentin JEWELRY STORE MANAGER.MECHANICAL MAINTENANCE WORKER Work Phone: [facility] 11-24-2023 11:36-0400 Heart rate 78 /min Vernell Florentin JEWELRY STORE MANAGER.MECHANICAL MAINTENANCE WORKER Work Phone: [facility] 11-24-2023 11:36-0400 SaO2% (BldA) [Mass fraction] 98 % Vernell Lerma JEWELRY STORE MANAGER.MECHANICAL MAINTENANCE WORKER Work Phone: [facility] 11-24-2023 11:36-0400 Systolic blood pressure 118 mm[Hg] Vernell Lerma JEWELRY STORE MANAGER.MECHANICAL MAINTENANCE WORKER Work Phone: [facility] 02-20-2023 15:52-0400 Body height 154.9 cm Jade [place] JEWELRY STORE MANAGER.MECHANICAL MAINTENANCE WORKER Work Phone: [facility] 02-20-2023 15:52-0400 Body weight 62.14 kg Jade Marty JEWELRY STORE MANAGER.MECHANICAL MAINTENANCE WORKER Work Phone: [facility] 02-20-2023 15:52-0400 Diastolic blood pressure 68 mm[Hg] Jade [place] JEWELRY STORE MANAGER.MECHANICAL MAINTENANCE WORKER Work Phone: [facility] 02-20-2023 15:52-0400 Systolic blood pressure 112 mm[Hg] Jade Marty JEWELRY STORE MANAGER.MECHANICAL MAINTENANCE WORKER Work Phone: [facility] 12-06-2022 14:53-0400 Body height 157.5 cm Reny Markham JEWELRY STORE MANAGER - MECHANICAL MAINTENANCE WORKER Work Phone: [facility] [employer] 12-06-2022 14:53-0400 Body mass index (BMI) [Ratio] 28.17 kg/m2 Reny Markham APRN - MECHANICAL MAINTENANCE WORKER Work Phone: [facility] [employer] 12-06-2022 14:53-0400 Body temperature 97.7 [degF] Reny Markham JEWELRY STORE MANAGER - MECHANICAL MAINTENANCE WORKER Work Phone: [facility] [employer] 12-06-2022 14:53-0400 Body weight 69.85 kg Reny Markham APRN - MECHANICAL MAINTENANCE WORKER Work Phone: [facility] [employer] 12-06-2022 14:53-0400 Diastolic blood pressure 69 mm[Hg] Reny Markham APRN - MECHANICAL MAINTENANCE WORKER Work Phone: [facility] [employer] 12-06-2022 14:53-0400 Heart rate 82 /min Reny Markham APRN - MECHANICAL MAINTENANCE WORKER Work Phone: [facility] [employer] 12-06-2022 14:53-0400 Respiratory rate 12 /min Reny Markham JEWELRY STORE MANAGER - MECHANICAL MAINTENANCE WORKER Work Phone: [facility] [employer] 12-06-2022 14:53-0400 Systolic blood pressure 122 mm[Hg] Reny Markham JEWELRY STORE MANAGER - MECHANICAL MAINTENANCE WORKER Work Phone: [facility] [employer] 06-05-2022 13:20-0500 Body height 157.5 cm Marielos Avalos MD Work Phone: [facility] 06-05-2022 13:20-0500 Body mass index (BMI) [Ratio] 27.62 kg/m2 Marielos Avalos MD Work Phone: [facility] [employer] 06-05-2022 13:20-0500 Body temperature 97.3 [degF] Marielos Avalos MD Work Phone: [facility] 06-05-2022 13:20-0500 Body weight 68.49 kg Marielos Avalos MD Work Phone: [facility] 05-16-2022 15:18-0500 Body weight 70.67 kg Jade Marty JEWELRY STORE MANAGER.MECHANICAL MAINTENANCE WORKER Work Phone: [facility] 05-16-2022 15:18-0500 Diastolic blood pressure 66 mm[Hg] Jade [place] JEWELRY STORE MANAGER.MECHANICAL MAINTENANCE WORKER Work Phone: [facility] 05-16-2022 15:18-0500 Systolic blood pressure 110 mm[Hg] Jade Marty JEWELRY STORE MANAGER.MECHANICAL MAINTENANCE WORKER Work Phone: [facility] 11-15-2021 07:11-0400 Body height 154.9 cm Jade [place] JEWELRY STORE MANAGER.MECHANICAL MAINTENANCE WORKER Work Phone: [facility] 11-15-2021 07:11-0400 Body weight 68.04 kg Jade [place] JEWELRY STORE MANAGER.MECHANICAL MAINTENANCE WORKER Work Phone: [facility] 11-15-2021 07:11-0400 Diastolic blood pressure 64 mm[Hg] Jade [place] JEWELRY STORE MANAGER.MECHANICAL MAINTENANCE WORKER Work Phone: [facility] 11-15-2021 07:11-0400 Systolic blood pressure 106 mm[Hg] Jade Ferguson APRN.CNP Work Phone: [facility] Encounters Encounter Date Encounter Type Care Provider Facility Start: 03-08-2025 End: 03-08-2025 ambulatory [facility] Facility:[facility] Start: 03-08-2025 Encounter for gynecological examination (general) (routine) without abnormal findings JADE FERGUSON [facility] Start: 12-28-2024 End: 12-28-[address] Ranjith Lee MD -[facility] Work Phone: Start: 12-28-2024 End: 12-28-2024 ambulatory Nathanael Frazier MD Work Phone: -[facility] Start: 12-17-2024 End: 12-17-2024 ambulatory Nathanael Frazier MD Work Phone: -Pulmonary Services/Neurology Start: 12-17-2024 End: 12-17-[address] Ranjith Lee MD -Pulmonary Services/Neurology Work Phone: Start: 12-17-2024 End: 12-17-2024 ambulatory Nathanael Frazier Facility:[facility] Start: 12-10-2024 End: 02-09-2025 Follow-up encounter Reny Markham APRN - MECHANICAL MAINTENANCE WORKER Work Phone: [facility] Comment on above: Bilateral screening mammogram with tomosynthesis Start: 12-10-2024 End: 12-10-2024 Prevent med senior counsel&/risk factor redj spx 15 min Reny Markham APRN - MECHANICAL MAINTENANCE WORKER Work Phone: [facility] Comment on above: Encounter for screen ing mammogram for breast cancer (Primary Dx); Family history of breast cancer; Family history of pancreatic cancer; Family history of melanoma; Family history of colon cancer; Family history of prostate cancer; Encounter for examination and observation for other specified reasons Start: 12-10-2024 End: 12-10-2024 ambulatory [facility] Start: 12-10-2024 End: 12-10-2024 ambulatory [facility] Start: 12-10-2024 End: 12-10-2024 Subsequent hospital visit by physician Reny Randle [facility] Work Phone: [facility] Comment on above: Encounter for screen ing mammogram for breast cancer Start: 12-10-2024 ambulatory Chalon Karin Facility:[facility] Start: 11-11-2024 End: 11-11-2024 ambulatory aNthanael Frazier MD Work Phone: -Outpatient Bone Densitometry Start: 11-11-2024 End: 11-11-[address] Ranjith Lee MD -Outpatient Bone Densitometry Work Phone: Start: 11-11-2024 End: 11-11-2024 ambulatory Nathanael Frazier Facility:[facility] Start: 11-06-2024 End: 11-06-2024 ambulatory Nathanael Frazier MD Work Phone: -Laboratory Start: 11-06-2024 End: 11-06-[address] Ranjith Lee MD -Laboratory Work Phone: Start: 11-06-2024 End: 11-06-2024 ambulatory Nathanael Frazier Facility:[facility] Start: 11-04-2024 End: 11-04-[address] Ranjith Lee MD -[facility] Work Phone: Start: 11-04-2024 End: 11-04-2024 ambulatory Nathanael Frazier MD Work Phone: -[facility] Start: 10-01-2024 End: 10-01-2024 ambulatory Nathanael Frazier MD Work Phone: [facility] Work Phone: Start: 10-01-2024 End: 10-01-[address] Mary Ann Vazquez MD -Laboratory [facility] Start: 10-01-2024 End: 10-01-2024 ambulatory Chalon Karin Facility:[facility] Start: 07-20-2024 ambulatory [facility] Facility:[facility] Start: 07-20-2024 Non-patient / Non-visit Dr. Nikolas STEPHENSON -[facility] Start: 07-20-[address] Nathanael Frazier MD -[facility] Work Phone: Start: 07-20-2024 ambulatory [facility] Facility:[facility] Start: 04-10-2024 End: 04-10-2024 ambulatory [facility] Facility:[facility] Start: 03-05-2024 End: 03-05-2024 Patient encounter procedure Jade Ferguson APRN.CNP Work Phone: OB/Gynecology Comment on above: Encounter for gyneco logical examination (general) (routine) without abnormal findings (Primary Dx); Encounter for screening mammogram for breast cancer Start: 03-05-2024 End: 03-05-2024 Patient encounter status Jade Ferguson APRN.CNP Work Phone: [facility] Start: 02-23-2024 End: 02-23-2024 ambulatory [facility] Facility:[facility] Start: 01-05-2024 ambulatory [facility] Facility:[facility] Start: 12-09-2023 End: 12-09-2023 Prevent med senior counsel&/risk factor redj spx 15 min Reny Randle MECHANICAL MAINTENANCE WORKER Work Phone: [facility] [place] Comment on above: Family history of br east cancer (Primary Dx); Family history of pancreatic cancer; Encounter for screening mammogram for breast cancer; Family history of prostate cancer; Family history of melanoma; Family history of colon cancer; Encounter for examination and observation for other specified reasons Start: 12-09-2023 End: 12-09-2023 Subsequent hospital visit by physician Reny Randle CNP Work Phone: [facility] [place] Comment on above: Encounter for screen ing mammogram for breast cancer Start: 11-24-2023 End: 11-24-2023 Patient encounter procedure Vernell Lerma APRN.MECHANICAL MAINTENANCE WORKER Work Phone: General Surgery Comment on above: History of colonic p olyps (Primary Dx); Encounter for screening for malignant neoplasm of colon Start: 10-21-2023 Refill Jade [place] MECHANICAL MAINTENANCE WORKER Work Phone: OB/Gynecology Comment on above: Refill Request Start: 07-05-2023 End: 07-05-[address] [facility] Work Phone: Start: 07-05-2023 End: 07-05-2023 [facility] Start: 06-17-2023 End: 06-17-[address] [facility] Work Phone: Start: 06-17-2023 End: 06-17-[address] [facility] Start: 02-20-2023 End: 02-20-2023 Patient encounter procedure Jade [place] PATRIZIA.MECHANICAL MAINTENANCE WORKER Work Phone: OB/Gynecology Comment on above: Encounter for gyneco logical examination (general) (routine) without abnormal findings (Primary Dx) Start: 02-20-2023 End: 02-20-2023 Patient encounter status Jadeedie Adamsf JEWELRY STORE MANAGER.MECHANICAL MAINTENANCE WORKER Work Phone: [facility] Start: 01-23-2023 End: 01-23-[address] [facility] Work Phone: Start: 01-23-2023 End: 01-23-[address] [facility]-Laboratory Work Phone: Start: 01-14-2023 Refill Jade Marty JEWELRY STORE MANAGER.MECHANICAL MAINTENANCE WORKER Work Phone: OB/Gynecology Comment on above: Refill Request; Refi ll Request Start: 12-06-2022 End: 12-06-2022 Office outpatient visit 15 minutes Reny Markham APRN - MECHANICAL MAINTENANCE WORKER Work Phone: [facility] [place] Comment on above: Family history of br east cancer (Primary Dx); Encounter for screening mammogram for breast cancer; Breast pain; Family history of pancreatic cancer; Rheumatoid arthritis, involving unspecified site, unspecified whether rheumatoid factor present (HCC) Start: 12-06-2022 End: 12-06-2022 Subsequent hospital visit by physician Reny Randle CNP Work Phone: [facility] Comment on above: Mammary duct ectasia of left breast Start: 11-12-2022 End: 11-12-2022 Subsequent hospital visit by physician Reny Randle CNP Work Phone: [facility] Comment on above: Dense breasts; Family history of breast cancer Start: 11-02-2022 End: 11-02-[address] [facility] Work Phone: Start: 11-02-2022 End: 11-02-2022 [facility] Start: 09-09-2022 End: 09-09-2022 Patient encounter procedure [facility] Start: 08-28-2022 End: 08-28-2022 ambulatory DO Carmen Hankinser Work Phone: [facility] Work Phone: Start: 08-28-2022 End: 08-28-2022 Patient encounter procedure DO Carmen Snow Work Phone: [facility] Start: 07-11-2022 Registered Referred DO Carmen Snow Work Phone: [facility] Start: 07-09-2022 End: 07-09-2022 ambulatory DO Carmen Snow Work Phone: [facility] Work Phone: Start: 07-09-2022 End: 07-09-2022 Patient encounter procedure DO Carmen Snow Work Phone: [facility] Start: 06-05-2022 End: 06-05-2022 Office outpatient new 30 minutes Marielos Avalos MD Work Phone: [facility] Comment on above: Mammary duct ectasia of left breast (Primary Dx); Family history of pancreatic cancer; Family history of melanoma; Dense breasts; Mastodynia of left breast; Costochondritis Start: 05-28-2022 ambulatory Lacy Merino Work Phone: Mammography Comment on above: Mammogram Abnormalit y Start: 05-28-2022 Patient encounter procedure Lacy Negron MD Work Phone: [facility] Start: 05-24-2022 Telephone encounter Jade Jose Daniel herzog JEWELRY STORE MANAGER.MECHANICAL MAINTENANCE WORKER Work Phone: OB/Gynecology Comment on above: Mammogram Abnormalit y Start: 05-23-2022 Non-patient / Non-visit DO Larissa Snow Work Phone: [facility] Start: 05-23-2022 End: 05-23-2022 Patient encounter procedure DO Carmen Snow Work Phone: [facility] Start: 05-16-2022 End: 05-16-2022 Patient encounter procedure Jade Adamsf JEWELRY STORE MANAGER.MECHANICAL MAINTENANCE WORKER Work Phone: OB/Gynecology Comment on above: Breast pain in femal e (Primary Dx) Start: 04-23-2022 End: 04-23-[address] [facility] Work Phone: Start: 04-23-2022 End: 04-23-2022 Patient encounter procedure [facility] Start: 02-08-2022 End: 02-08-[address] [facility] Work Phone: Start: 02-08-2022 End: 02-08-2022 Patient encounter procedure [facility] Start: 01-31-2022 Refill Jade Marty JEWELRY STORE MANAGER.MECHANICAL MAINTENANCE WORKER Work Phone: OB/Gynecology Comment on above: Refill Request Start: 11-15-2021 Documentation procedure Mammog antonietta Coordinator [facility] Start: 11-15-2021 Letter encounter Mammography Coordinator [facility] Department Start: 11-15-2021 End: 11-15-2021 Subsequent hospital visit by physician Screen Mammo [facility] Comment on above: Encounter for screen ing mammogram for breast cancer [Z12.31] Start: 11-15-2021 End: 11-15-2021 Patient encounter procedure Jade Ferguson APRN.CNP Work Phone: OB/Gynecology Comment on above: Encounter for gyneco logical examination (general) (routine) without abnormal findings (Primary Dx); Encounter for screening mammogram for malignant neoplasm of breast Start: 11-15-2021 End: 11-15-2021 Patient encounter status Jade Ferguson APRN.CNP Work Phone: OB/Gynecology Start: 10-26-2021 End: 10-26-2021 ambulatory MANJU DPM [facility] Start: 10-02-2021 End: 10-02-2021 Patient encounter procedure [facility] Start: 12-11-2020 End: 12-11-2020 ambulatory MANJU [facility] Start: 11-07-2020 End: 11-07-2020 Emergency department patient visit [facility] Procedures Date Procedure Procedure Detail Performing Clinician Start: 12-17-2024 MRI of brain with contrast Nathanael Merino Work Phone: Start: 12-10-2024 End: 12-10-2024 Mammography Reny Markham APR N - MECHANICAL MAINTENANCE WORKER Work Phone: Start: 11-11-2024 Dual energy X-ray absorptiometry Nathanael Frazier MD Work Phone: Start: 11-06-2024 Folic acid measurement, RBC Nathanael Frazier MD Work Phone: Start: 07-20-2024 CT angiography of coronary arteries Nathanael Frazier MD Work Phone: Start: 12-09-2023 End: 12-09-2023 Mammography Reny Markham APR N - MECHANICAL MAINTENANCE WORKER Work Phone: Start: 12-06-2022 Us breast uni real time with image limited Reny Markham JEWELRY STORE MANAGER - MECHANICAL MAINTENANCE WORKER Work Phone: Start: 12-06-2022 End: 12-06-2022 Mammography Reny Markham APR N - MECHANICAL MAINTENANCE WORKER Work Phone: Start: 11-12-2022 MR Breast - bilateral WO and W contrast IV Reny Markham PATRIZIA - MECHANICAL MAINTENANCE WORKER Work Phone: Start: 05-23-2022 Mammography DO Carmen Marinnger Work Phone: Start: 05-23-2022 Ultrasonography of breast DO Carmen Marinkarthik rod Work Phone: Start: 11-15-2021 CONSTANCE SCREENING W CARLIN Jade Ferguson APRN.MECHANICAL MAINTENANCE WORKER Work Phone: Start: 11-15-2021 Mammography Jade Ferguson APRN.MECHANICAL MAINTENANCE WORKER Work Phone: Start: 11-10-2018 Colonoscopy Jade Ferguson APRN.MECHANICAL MAINTENANCE WORKER Work Phone: Start: 10-08-2011 Lipid 1996 panel - Serum or Plasma Jade Ferguson APRN.MECHANICAL MAINTENANCE WORKER Work Phone: H/O: hysterectomy H/O: hysterectomy History of cholecystectomy Hx of cholecys tectomy Plan of Treatment Date Care Activity Detail Author Start: 01-16-2039 RSV Immunization for Adults (1 - 1-dose 75+ series) RSV Immunization for Adults (1 - 1-dose 75+ series) [facility] Start: 01-16-2039 RSV Vaccine (1 - 1-dose 75+ series) RSV Vaccine (1 - 1-dose 75+ series) [facility] Start: 04-26-2029 DTaP/Tdap/Td Vaccines (3 - Td or Tdap) DTaP/Tdap/Td Vaccines (3 - Td or Tdap) [facility] Start: 04-26-2029 Urine microalbumin profile DTaP,Tdap,Td Vaccine (3 - Td or Tdap) [facility] Start: 11-10-2028 Screening for malignant neoplasm of colon [facility] Start: 12-23-2025 End: 02-09-2026 DBT Breast - bilateral screening Bilateral screening mammogram with tomosynthesis Imaging Routine Encounter for screening mammogram for breast cancer Expected: 12/23/2025 (Approximate), Expires: 02/09/2026 [facility] Work Phone: Comment on above: Expected: 12/23/2025 (Approximate), Expi res: 02/09/2026 Start: 12-13-2025 End: 12-13-2025 Patient encounter procedure 12/13/2025 10:30 AM EDT Office Visit [facility] [place] [address] [place] [phone] Reny Markham APRN - MECHANICAL MAINTENANCE WORKER [address] [place], [place] [id number] [facility] Start: 12-13-2025 End: 12-13-2025 Patient encounter procedure 12/13/2025 9:20 AM EDT Appointment [facility] [address] [place] [phone] [facility] Start: 12-10-2025 Screening for malignant neoplasm of breast Mammogram [facility] Start: 03-08-2025 End: 03-08-2025 Patient encounter procedure 03/08/2025 3:30 PM EST Office Visit OB/Gynecology [address] [place] [address] Jade Ferguson APRN.MECHANICAL MAINTENANCE WORKER [address] [place] [address] Annual OB/Gynecology Comment on above: Annual Start: 12-27-2024 COVID-19 Vaccine ( season) COVID-19 Vaccine ( season) [facility] Start: 12-27-2024 Influenza vaccination Influenza Vaccine (#1) [facility] Start: 12-13-[address] [facility] Start: 12-10-2024 End: 12-10-2024 Patient encounter procedure 12/10/2024 10:30 AM EDT Office Visit [facility] [place] [address] [place] [address] Reny Markham APRN - MECHANICAL MAINTENANCE WORKER [address] [place] [address] [facility] Start: 12-10-2024 End: 12-10-2024 Patient encounter procedure 12/10/2024 9:20 AM EDT Appointment [facility] [address] [facility] [place] [address] [facility] Start: 12-08-2024 End: 04-04-2025 DBT Breast - bilateral screening CONSTANCE SCREENING W CARLIN Radiology Routine Encounter for screening mammogram for breast cancer Expected: 12/08/2024 (Approximate), Expires: 04/04/2025 [facility] Work Phone: Comment on above: Expected: 12/08/2024 (Approximate), Expi res: 04/04/2025 Start: 12-08-2024 Screening for malignant neoplasm of breast [facility] Start: 11-11-2024 Dual energy X-ray absorptiometry Dexa Bone Density Study [facility] Start: 11-11-2024 DXA Bone [Mass/Area] Bone density [facility] Start: 04-08-2024 Urine microalbumin profile [facility] Start: 02-23-2024 End: 02-23-2024 Patient encounter procedure 02/23/2024 9:00 AM EDT Office Visit OB/Gynecology [address] [place] [address] Jade Ferguson APRN.MECHANICAL MAINTENANCE WORKER [address] [place] [address] ANNUAL EXAM OB/Gynecology Comment on above: ANNUAL EXAM Start: 2024 RSV Immunization aged 60 or older (1 - 1-dose 60+ series) RSV Immunization aged 60 or older (1 - 1-dose 60+ series) [facility] Start: 12-28-2023 Covid-19 Vaccine ( season) Covid-19 Vaccine () [facility] Start: 12-28-2023 Influenza vaccination [facility] Start: 12-26-2023 End: 02-06-2024 DBT Breast - bilateral screening Bilateral screening mammogram with tomosynthesis Imaging Routine Encounter for screening mammogram for breast cancer Expected: 12/26/2023 (Approximate), Expires: 02/06/2024 [facility] Work Phone: Comment on above: Expected: 12/26/2023 (Approximate), Expi res: 02/06/2024 Start: 12-09-2023 End: 12-09-2023 Patient encounter procedure [facility] Start: 12-07-2023 Screening for malignant neoplasm of breast [facility] Start: 11-24-2023 End: 11-24-2023 Patient encounter procedure 11/24/2023 11:45 AM EDT Office Visit General Surgery [address] [place], [place] [id number] Meena Ascencio MD [address] [place] [phone] 5 year colonoscopy consult General Surgery Comment on above: 5 year colonoscopy consult Start: 11-11-2023 Colonoscopy COLONOSCOPY [facility] Start: 11-11-2023 COLORECTAL CANCER SCREENING COLORECTAL CANCER SCREENING [facility] Start: 11-11-2023 Screening for malignant neoplasm of colon [facility] Start: 04-28-2023 Behavioral Health Screening Behavioral Health Screening [facility] Start: 12-27-2022 Covid-19 Vaccine ( season) Covid-19 Vaccine () [facility] Start: 12-27-2022 Influenza vaccination Influenza Vaccine (#1) [facility] Start: 12-06-2022 End: 12-06-2022 Patient encounter procedure [facility] Start: 11-15-2022 Mammography [facility] Start: 06-07-2022 End: 06-07-2022 Patient encounter procedure [facility] Start: 06-05-2022 End: 08-04-2023 US Breast - left limited Left breast US limited Imaging Routine Dense breasts Mastodynia of left breast Mammary duct ectasia of left breast Expected: 06/05/2022 (Approximate), Expires: 08/04/2023 [facility] Work Phone: Comment on above: Expected: 06/05/2022 (Approximate), Expi res: 08/04/2023 Start: 04-28-2022 DEPRESSION ASSESSMENT DEPRESSION ASSESSMENT [facility] Start: 04-02-2022 HPV TESTING HPV TESTING [facility] Start: 04-02-2022 PAP TESTING PAP TESTING [facility] Start: 04-02-2022 Screening for malignant neoplasm of cervix Cervical Cancer Screening [facility] Start: 12-27-2021 Influenza vaccination [facility] Start: 04-28-2021 DEPRESSION ASSESSMENT DEPRESSION ASSESSMENT [facility] Start: 12-18-2020 COVID-19 VACCINE (4 - Booster for Moderna series) COVID-19 VACCINE (4 - Booster for Moderna series) [facility] Start: 10-13-2020 COVID-19 VACCINE (4 - Booster for Moderna series) COVID-19 VACCINE (4 - Booster for Moderna series) [facility] Start: 10-13-2020 Covid-19 Vaccine (4 - Moderna series) Covid-19 Vaccine (4 - Moderna series) [facility] Start: 10-07-2016 Lipid 1996 panel - Serum or Plasma Lipid Screening [facility] Start: 10-07-2016 Lipid panel Lipid Screening [facility] Start: 10-07-2016 LIPID SCREEN LIPID SCREEN [facility] Start: 08-26-2016 DIABETES SCREEN DIABETES SCREEN [facility] Start: 08-26-2016 Diabetes Screening Diabetes Screening [facility] Start: 01-16-2014 Pneumococcal Vaccine: 50+ Years (1 of 1 - PCV) Pneumococcal Vaccine: 50+ Years (1 of 1 - PCV) [facility] Start: 01-16-2014 SHINGRIX VACCINE (1 of 2) SHINGRIX VACCINE (1 of 2) [facility] Start: 01-16-2014 Zoster Vaccines (1 of 2) Zoster Vaccines (1 of 2) [facility] Start: 01-16-2009 COLOGUARD (FIT-DNA) COLOGUARD (FIT-DNA) [facility] Start: 01-16-[address] COLONOGRAPHY [facility] Start: 01-16-2009 FECAL OCCULT BLOOD FECAL OCCULT BLOOD [facility] Start: 01-16-2009 Screening for malignant neoplasm of colon [facility] Start: 01-16-2009 SIGMOIDOSCOPY SIGMOIDOSCOPY [facility] Start: 2004 Screening for malignant neoplasm of breast Mammogram [facility] Start: 01-16-1994 Screening for malignant neoplasm of cervix [facility] Start: 01-16-1985 Screening for malignant neoplasm of cervix Pap Smear [facility] Start: 01-16-1983 Hepatitis B Vaccines (1 of 3 - 19+ 3-dose series) Hepatitis B Vaccines (1 of 3 - 19+ 3-dose series) [facility] Start: 01-16-1982 Depression Screening Depression Screening [facility] Start: 01-16-1982 Diabetes mellitus screening Diabetes Screening [facility] Start: 01-16-1982 HEPATITIS C SCREENING HEPATITIS C SCREENING [facility] Start: 01-16-1982 Hepatitis C screening Hepatitis C Screening [facility] Start: 01-16-1982 HIV SCREENING HIV SCREENING [facility] Start: 01-16-1982 HIV screening HIV Screening [facility] Start: 1976 Adult depression screening assessment DEPRESSION SCREENING [facility] Start: 1976 Depression Monitoring Depression Monitoring [facility] Start: 01-16-1965 MMR Vaccines (1 of 1 - Standard series) MMR Vaccines (1 of 1 - Standard series) [facility] Start: 1964 HEPATITIS B (1 of 3 - 3-dose series) HEPATITIS B (1 of 3 - 3-dose series) [facility] Start: 1964 Hepatitis B Vaccine (1 of 3 - 3-dose series) Hepatitis B Vaccine (1 of 3 - 3-dose series) [facility] Start: 1964 Hepatitis B Vaccines (1 of 3 - 3-dose series) Hepatitis B Vaccines (1 of 3 - 3-dose series) [facility] Start: 1964 HIV screening HIV Screening [facility] Start: 1964 Lipid panel Lipid Panel [facility] Start: 1964 Screening for malignant neoplasm of colon [facility] Cyclic citrullinated peptide IgG Ab [Units/volume] in Serum or Plasma [facility] Work Phone: End: 06-15-2023 Diagnostic mammography computer-aided detcj uni [facility] DIAGNOSTIC LT Radiology Routine Breast pain in female 1 Occurrences starting 05/16/2022 until 06/15/2023 [facility] Work Phone: Comment on above: 1 Occurrences starting 05/16/2022 until 06/15/2023 End: 06-27-2023 Diagnostic mammography computer-aided detcj uni [facility] DIAGNOSTIC LT Radiology Routine Abnormal finding on radiological examination of breast 1 Occurrences starting 05/28/2022 until 06/27/2023 [facility] Work Phone: Comment on above: 1 Occurrences starting 05/28/2022 until 06/27/2023 DXA Bone [Mass/Area] Bone density [facility] Electroencephalogram [facility] HLA-B27 [Presence] b y SUZY with probe detection [facility] Work Phone: End: 12-15-2022 CONSTANCE SCREENING W CARLIN CONSTANCE SCREENING W CARLIN Radiology Routine Encounter for screening mammogram for malignant neoplasm of breast 1 Occurrences starting 11/15/2021 until 12/15/2022 [facility] Work Phone: Comment on above: 1 Occurrences starting 11/15/2021 until 12/15/2022 MR Brain WO and W contrast IV [facility] End: 11-23-2024 Screening colonoscopy COLONOSCOPY SCREENING Endoscopy Routine History of colonic polyps Encounter for screening for malignant neoplasm of colon 1 Occurrences starting 11/24/2023 until 11/23/2024 [facility] Work Phone: Comment on above: 1 Occurrences starting 11/24/2023 until 11/23/2024 End: 06-15-2023 Us breast uni real time with image limited US BREAST LTD LT Radiology Routine Breast pain in female 1 Occurrences starting 05/16/2022 until 06/15/2023 [facility] Work Phone: Comment on above: 1 Occurrences starting 05/16/2022 until 06/15/2023 End: 06-27-2023 Us breast uni real time with image limited US BREAST LTD LT Radiology Routine Abnormal finding on radiological examination of breast 1 Occurrences starting 05/28/2022 until 06/27/2023 [facility] Work Phone: Comment on above: 1 Occurrences starting 05/28/2022 until 06/27/2023 Vitamin B6 measurement [facility] Immunizations Immunization Date Immunization Notes Care Provider Nawaf luna 08-18-2020 COVID-19 vaccine, fu ll dose (MODERNA) Jade Marty JEWELRY STORE MANAGER.MECHANICAL MAINTENANCE WORKER Work Phone: [facility] Work Phone: 08-12-2020 COVID-19 vaccine, fu ll dose (MODERNA) Jade [place] JEWELRY STORE MANAGER.MECHANICAL MAINTENANCE WORKER Work Phone: [facility] Work Phone: 07-15-2020 COVID-19 vaccine, fu ll dose (MODERNA) Jade Marty JEWELRY STORE MANAGER.MECHANICAL MAINTENANCE WORKER Work Phone: [facility] Work Phone: 03-11-2017 influenza virus vaccine, unspecified formulation Jade Marty JEWELRY STORE MANAGER.MECHANICAL MAINTENANCE WORKER Work Phone: [facility] 04-08-2014 tetanus toxoid, redu rory diphtheria toxoid, and acellular pertussis vaccine, adsorbed Jade [place] JEWELRY STORE MANAGER.MECHANICAL MAINTENANCE WORKER Work Phone: [facility] Payers Date Payer Category Payer Unknown [id number] [employer] [facility] [facility] [id number] 2024 Unknown [id number] 2024 Private Health Insurance [id number] 2024 Self-pay [id number] 2022 Private Health Insurance [id number] 2015 Unknown [employer] PPO [id number] 2015-Present [phone] [address] [place] [id number] PPO [id number] .[id number] 2015 Unknown [employer] PPO [id number] 2015-Present [phone] [address] [place] [address] PPO [id number] 1965 Unknown [id number] 2.16.840.1.318767.3.579 .2.651 1965 Unknown [id number] 2.16840.1.940733.3.579 .2.651 1965 Unknown [id number] 2.16.840.1.707441.3.579 .2.651 Unknown [id number] Unknown [id number] 2.16.840.1.387816.3.579 .2.462 Unknown [id number] 2.16.840.1.365176.3.579 .2.462 Unknown [id number] 2.16.840.1.068338.3.579 .2.462 Unknown [id number] 2.16.840.1.056763.3.579 .2.462 Unknown [id number] 2.16.840.1.036741.3.579 .2.462 Unknown [id number] 2.16.840.1.616779.3.579 .2.462 Unknown [id number] 2.16.840.1.641546.3.579 .2.462 Unknown [id number] 2.16.840.1.338258.3.579 .2.462 Unknown [id number] 2.16.840.1.129645.3.579 .2.462 Unknown [id number] 2.16.840.1.447786.3.579 .2.462 Unknown [id number] 2.16.840.1.989532.3.579 .2.462 Unknown [id number] 2.16.840.1.093271.3.579 .2.462 Unknown [id number] 2.16.840.1.336961.3.579 .2.462 Social History Date Type Detail Facility Start: 08-15-2020 End: 08-15-2020 Tobacco smoking status [facility] Unknown if ever smoked [facility] Start: 02-02-2015 None [facility] Start: 02-02-2015 Cigarettes [facility] Start: 1965 Sex Assigned At Female W [facility] Start: 11-13-2020 End: 12-10-2024 Tobacco smoking status MDIS Ex-smoker [facility] Work Phone: Start: 04-28-2004 End: 03-27-2020 History of tobacco use Current smoker [facility] Work Phone: Start: 04-28-2004 End: 03-27-2020 History of tobacco use Cigarette Smoker [facility] Work Phone: Start: 11-13-2020 End: 03-05-2024 Tobacco use and exposure Smokeless tobacco non-user [facility] Work Phone: Start: 11-15-2021 End: 03-05-2024 Alcohol intake Current non-drinker of alcohol (finding) [facility] Start: 05-02-2009 End: 05-16-2022 Tobacco Comment 5 CIGARETTES PER DAY [facility] Start: 1965 Sex Assigned At Not on file [facility] Start: 11-05-2021 End: 12-06-2022 Exposure to SARS-CoV-2 (event) Not sure [facility] Work Phone: Start: 06-07-2022 End: 12-10-2024 Cigarettes smoked current (pack per day) - Reported 0.3 [facility] Start: 06-07-2022 End: 12-10-2024 Tobacco use and exposure User of smokeless tobacco [facility] Start: 06-07-2022 End: 12-10-2024 Alcohol intake Lifetime non-drinker (finding) [facility] Start: 06-07-2022 End: 12-10-2024 Tobacco use panel [facility] Start: 06-05-2022 Tobacco Comment Jadyn heron gross [facility] National Score (1-10 0), lower number is lower risk 73 [facility] Start: 11-26-2021 Sex Female (finding) [facility] Clinical Notes 10-26-2021 to 03-08-2025 PATRIZIA Gavin CNP - 12/10/2024 11:00 AM EDT Note Date & Type Note Facility 03-08-2025 Note HNO ID: [id number] Author: JADE FERGUSON APRN.RENALDO Service: ? Author Type: Nurse Practitioner Type: Progress Notes Filed: 03/08/2025 10:43 Note Text: Patient declined car tracerNona Ricketts is a 60 year old who presents for an annual gynecologic exam without complaints. Postmenopausal: Yes since Hysterectomy, bilateral ovaries are intact. HRT use: No. HPV vaccine: none Last pap smear: 08/20/10, Negative History of abnormal pap: No Last mammogram: 2024 normal History of abnormal mammogram: Yes ,mammary duct ectasia OB History Gravida2 Para2 Term1 Preterm1 AB0 Living3 SAB0 IAB0 Ectopic0 Multiple1 Live Births0 Comment: Twin Boys. 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 History LMP: 08/19/2010, Hysterectomy Age at Menarche: Age at First : Age at Menopause: 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 History Comments: Sexual Activity: Not Currently; Male; hysterectomy Contraception: Tubal Ligation, Surgical PAST MEDICAL HISTORY Diagnosis Date Anxiety Depression DVT of upper extremity (deep vein thrombosis) [...] status: Former Substance Use Topics Alcohol use: Never Drug use: No REVIEW OF SYSTEMS Abdomen: [...] discussed with the Patient or Patient's Authorized Striper Spray Gun. As applicable, any other physician, advance practice provider, medical student, or other health professional student that will be observing or involved in the sensitive examination for educational or training purposes was discussed with the Patient or Authorized Striper Spray Gun. The Patient or Authorized Striper Spray Gun has agreed to proceed with the sensitive examination. (Sensitive examination includes inspection and/or palpation of the breasts, pelvis, prostate and anorectal regions). EXAM: BP 126/74 Ht 5' 1.024 (1.55m) Wt 155 lb 9.6 oz (70.6kg) LMP 08/19/2010 BMI 29.38 kg/(m2). GENERAL: pleasant, female in no apparent distress HEENT: Normocephalic, atraumatic, mucus membranes moist, and no lesions DERMATOLOGY: Normal, without lesions, non-icteric, and non-hirsute BREAST: soft, non-tender, symmetric, no dominant mass, normal nipple-areolar complex, no lymphadenopathy, and no nipple discharge CHEST: Normal inspiratory effort ABDOMEN: soft, non-tender, and no masses PELVIC: external genitalia normal, normal Bartholin's glands, urethra, [place]'s glands, no vulvar lesions, physiologic discharge present, normal appearing perineal body and perianal region, cervix surgically absent BIMANUAL: no adnexal masses, non-tender, and uterus surgically absent RECTOVAGINAL: deferred. NEURO: alert and oriented x3,exam grossly non-focal EXTREMITIES: normal ASSESSMENT/PLAN: 1) Health maintenance: Pap/HPV screening no longer needed Mammogram ordered Mammogram up to date Nutrition, exercise and routine health maintenance exams reviewed. Calcium/Vitamin D supple (more content not included)... [facility] 12-10-2024 History of Present illness Narrative Chief Complaint Patient presents with 1 Year Follow-up Patient states both bilateral breast get itchy, but they are not dry. She also states she get pain that comes and goes, but more so in the left breast HPI: Reymundo Alanis is a 59 y.o. female who presents for annual clinical breast exam. Breast history: -05/23/2022: LEFT diagnostic mammogram/ultrasound ([facility]) demonstrated retroareolar ductal dilation -06/05/2022: She was seen in the breast center by Dr. Avalos. Repeat diagnostic imaging recommended -06/07/2022: She was seen at the breast center for genetic testing. -06/07/2022: LEFT breast ultrasound here at [facility] demonstrated mildly dilated ducts. The radiologist [...] intermittent bilateral breast pain. -12/09/2023: Screening mammogram negative (BIRADS 1) -12/10/2024: Screening mammogram negative (BIRADS 1) She has no breast history other than what is outlined above. Today, she still notes intermittent bilateral breast pain. She also notes itching bilaterally. We discussed keeping her breast well moisturized with Aquaphor. No additional concerns today. She denies breast mass, skin change, nipple change, nipple discharge. No prior breast biopsy or breast surgery. Her lifetime risk of breast cancer estimated by the Tyrer-Cuzick V8 model is 11.69%. Given her risk score and breast density (BI-RADS B), breast MRI not indicated at this time per NCCN guidelines. She will continue annual mammogram and breast exams. She has a significant family history of cancer. See family history section of this note. She did have Other Machine Cancer[employer] panel panel genetic testing 05/2022 which was negative for deleterious mutation. Results scanned into media dated 06/25/2022. Risk Factors: Menarche: 11 Age of first : 21; Menopause: Post; she had a hysterectomy in 2011 at the age of 46. She retains her ovaries. Physical Activity: She walks occasionally and is active at work. We discussed the [place] recommends that adults get at least 150 minutes of moderate intensity or 75 minutes of vigorous intensity activity each week Nutrition: She has been trying to follow a healthy diet. We discussed a plant based diet and limiting added hormones in her meat and dairy. Weight: Stable; BMI 28.68 Smoking: She previously quit in 2012. She did resume smoking after the loss of her but has since quit completely. ETOH: None Breast Imaging: Screening mammogram 12/10/2024 TISSUE DENSITY: BIRADS B - There are scattered areas of fibroglandular density. FINDINGS: No suspicious masses, architectural distortions or suspiciously clustered microcalcifications are identified. There are no significant changes when compared with prior studies. IMPRESSION: No mammographic evidence of malignancy. ASSESSMENT: Category 1 Negative RECOMMENDATION: Routine screening mammogram in 1 year. Bilateral Family Cancer history includes: Mother with breast, pancreatic, liver cancer and melanoma age 79 Brother with prostate cancer age 60 Brother with testicular cancer age 53 Maternal grandmother with melanoma and bone cancer age 50 Maternal grandfather with colon cancer age 47 Maternal aunt with pancreatic cancer age 70 Medical History[1] Surgical History[2] Allergies[3] Current Medications[4] Review of Systems: Review of Systems Constitutional: Negative. HENT: Negative. Eyes: Negative. Respiratory: Negative. Cardiovascular: Negative. Gastrointestinal: Negative. Endocrine: Negative. Genitourinary: Negative. Musculoskeletal: Negative. Skin: Negative. Allergic/Immunologic: Negative. Neurological: Negative. Hematological: Negative. Psychiatric/Behavioral: Negative. BP 88/57 (BP Location: Left arm, Patient Position: Sitting) Pulse 72 Temp 36.3 C (97.3 F) (Temporal) Resp 12 Ht 5' 1 (1.549 m) Wt 151 lb 12.8 oz (68.9 kg) BMI 28.68 kg/m Physical Exam: Physical Exam Constitutional: General: [...] Mood normal. Behavior: Behavior normal. Assessment/Plan: 1. Encounter for screening mammogram for breast cancer (Primary) - Bilateral screening mammogram with tomosynthesis; Future -11/2025 -Follow up 1 year for CBE -Today, we discussed breast self-awareness and breast cancer risk reduction strategies including plant-based diet, aerobic exercise, maintaining healthy BMI, nicotine avoidance, alcohol limitation 2. Family history of breast cancer -She has completed negative genetic testing 3. Family history of pancreatic cancer -She has completed negative genetic testing 4. Family history of melanoma -She has completed negative genetic testing 5. Family history of colon cancer -She has completed negative genetic testing 6. Family history of prostate cancer -She has completed negative genetic testing 7. Encounter for examination and observation for other specified reasons Call with any breast concerns or questions Reny Markham, PATRIZIA - MECHANICAL MAINTENANCE WORKER Please disregard any typographical errors. This note was dictated using voice recognition software. On this date, 12/10/2024 I have spent 20 minutes reviewing previous notes, test results and face to face with the patient discussing the diagnosis and importance of compliance with the treatment plan as well as documenting on the day of the visit. [1] Past Medical History: Diagnosis Date Epilepsy (HCC) Fibrocystic breast Fibromyalgia High cholesterol Rheumatoid arthritis (HCC) [2] Past Surgical History: Procedure Laterality Date SECTION, CLASSIC 1991 CHOLECYSTECTOMY 2005 FOOT SURGERY Left 10/2021 left ankle neuroma removal HYSTERECTOMY 2011 and they tacked the bladder at the same time [3] Allergies Allergen Reactions Amoxicillin Other reaction(s): Nausea Amoxicillin-Pot Clavulanate Other reaction(s): GI Upset, GI Upset Other reaction(s): GI Upset Clavulanic Acid Other reaction(s): Nausea Other Other [4] Current Outpatient Medications: albuterol 108 (90 Base) MCG/ACT inhaler, as needed., Disp: , Rfl: ARIPiprazole (Abilify) 5 MG tablet, , Disp: , Rfl: atorvastatin (Lipitor) 20 MG tablet, , Disp: , Rfl: carBAMazepine (TEGretol) 200 MG tablet, 2 times daily., Disp: , Rfl: citalopram (CeleXA) 40 MG tablet, , Disp: , Rfl: gabapentin (Neurontin) 100 MG capsule, Take 100 mg by mouth in the morning and 100 mg at noon and 100 mg in the evening., Disp: , Rfl: hydroxychloroquine (Plaquenil) 200 MG tablet, Take 1.5 tablets by mouth daily., Disp: , Rfl: propranolol (Inderal) 20 MG tablet, , Disp: , Rfl: sodium chloride 1 g tablet, Take 1,000 mg by mouth 3 times daily., Disp: , Rfl: traZODone (Desyrel) 50 MG tablet, 1 1/2 TABLET 30-60 MIN PRIOR TO SLEEP FOR INSOMNIA, Disp: , Rfl: documented in this encounter [facility] 11-04-2024 Evaluation note Diagnosis Onset Date Resolution Epilepsy acute November 04 8:49am [facility] Work Phone: 1(756) 579-969607-10-2025 Evaluation note* Diagnosis Onset Date Resolution Status Admit Date Epilepsy acute November 04 8:49am Epilepsy acute December 28, 2024 8:20am [facility] Work Phone: 1(446) 821-797811-08-2024 History of Present illness Narrative* Jade Ferguson APRN.CNP - 03/05/2024 3:12 PM EST Bulk Intake Worker offered: Patient declinesNona Ricketts is a 59 [...] Ectopic0 Multiple1 Live Births0 Comment: [employer] Boys. 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 History LMP: 08/19/2010, Hysterectomy Age at Menarche: Age at First : Age at Menopause: 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 History Comments: Sexual Activity: Not Currently; Male; [...] discussed with the Patient or Patient's Authorized Striper Spray Gun. As applicable, any other physician, advance practice provider, medical student, or other health professional student that will be observing or involved in the sensitive examination for educational or training purposes was discussed with the Patient or Authorized Striper Spray Gun. The Patient or Authorized Striper Spray Gun has agreed to proceed with the sensitive [...] external genitalia normal, normal Bartholin's glands, urethra, [place]'s glands, no vulvar lesions, physiologic discharge present, [...] year or sooner as needed Jade Ferguson APRN.MECHANICAL MAINTENANCE WORKER documented in [facility] Medical Records Department [address] [place] [id number] History Physical Exam 02/23/24 0907 MR#: [id number] Acct: [id number] Name: REYMUNDO ALANIS Rep #: [id number] : 1965 59 From: Chase Guadarrama DO PCP: Dr. Nathanael Frazier MD Status:[facility] Location: [place] [address] HPI - General General Date of Admission: 02/23/24 Date of Service: 02/23/24 Chief Complaint: Surveillance colonoscopy HPI Narrative REYMUNDO ALANIS, is a 59 F who presents today for surveillance colonoscopy. She has a past medical history of epilepsy, anxiety, depression, hyperlipidemia. She had a colonoscopy several years ago at [facility] and had a normal colonoscopy during that time. Her first colonoscopy did have adenomatous polyps. She is not having any abdominal pain, cramping, chest aching or shortness of breath. [facility] Medical History (Updated 02/19/24 @ 13:52 by Jaes Barragan) Wears partial dentures Wears glasses Arthritis [...] current occupational status: employed current occupation: [employer] Smoking Status: Former smoker quit date: 03/28/20 [...] chest wall rise Res (more content not included)...[facility]08-13-2024 History of Present illness Narrative* Reny Markham APRN - MECHANICAL MAINTENANCE WORKER - 12/09/2023 10:30 AM EDT Chief Complaint Patient presents with 1 Year Follow-up Breast exam HPI: Reymundo Blankenship is a 58 y.o. female who presents for annual clinical breast exam Breast history: -05/23/2022: LEFT diagnostic mammogram/ultrasound ([facility]) demonstrated retroareolar ductal dilation -06/05/2022: She was seen in the breast center by Dr. Avalos. Repeat diagnostic imaging recommended -06/07/2022: She was seen at the breast center for genetic testing. -06/07/2022: LEFT breast ultrasound here at [facility] demonstrated mildly dilated ducts. The radiologistnotes this [...] section of this note. She did have Other Machine Cancer[employer] panel panel genetic testing 05/2022 which [...] Activity: She walks occasionally. We discussed the [place] [employer] recommends thatadults get at least [...] concerns or questions Reny Markham APRN - MECHANICAL MAINTENANCE WORKER Please disregard any typographical errors. This note was dictated using voice recognition software. On this date, 12/09/2023 I have spent 20 minutes reviewing previous notes, test results and face to face with the patient discussing the diagnosis and importance of compliance with the treatment plan as well as documenting on the day of the visit. documented in this [facility]07-29-2024 Nurse Note* Mally Hawkins LPN - 11/24/2023 12:00 PM EDT Patient educated, patient verbalized understanding. No further questions at this time. Mally Hawkins LPN November 24, 2023 12:01 PM [facility]07-29-2024 Nurse Note* Mally Hawkins LPN [...] 11/09/2018 Karla Pollard RN documented in this encounterJoint [facility]07-29-2024 Instructions* Patient Instructions* Vernell Lerma APRN.[facility] - 11/24/2023 11:47 AM EDT Images from [...] If you do not have a responsible local owner operator truck driver (family member or friend) withyou to take you home, your exam cannot be done with sedation and will be cancelled. Please bring a list of all of your current medications, including any Ihkt-gqw-Skjmjyk medications with you. Medications If you take [...] your exam. 2 03/2019 documented in this encounterJoint [facility]07-29-2024 Nurse Note* Karla Pollard RN - 11/24/2023 [...] 12/06/2022 Last Colonoscopy: 11/09/2018 Karla Pollard RN [facility]07-29-2024 History of Present illness Narrative* Vernell Lerma APRN.MECHANICAL MAINTENANCE WORKER - 11/24/2023 11:20 AM EDT HISTORY AND [...] entered by the nurse and reviewed by il Nursing Notes: Karla Pollard RN 11/24/2023 11:32 [...] time to think about going to either [place] or my [place] and is to call [...] and edited and updated as necessary. Vernell Lerma APRN.RENALDO documented in this encounterJoint [facility]10-26-2023 Instructions* Patient Instructions* Laney Murphy APRN.CNP - [...] salmon and sardines and vegetables, such as Spanish cabbage, kale, and broccoli. Foods fortified with [...] acid, calcium carbonate is found in some trhp-aek-qgxqmhs antacid products, such as Tums and Rolaids [...] prescribed by your doctor. documented in this encounterJoint [facility]10-26-2023 History of Present illness Narrative* Laney Murphy APRN.CNP - 02/20/2023 3:41 PM EDT Reymundo is a 58 year old who presents for an annual gynecologic exam without complaints. Has history of abnormal mammograms and strong family history of cancer - mammograms managed by [employer]. Had genetic testing done as well. Patient [...] Ectopic0 Multiple1 Live Births0 Comment: Twin Boys. 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 History LMP: 08/19/2010, Hysterectomy Age at Menarche: Age at First : Age at Menopause: 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 History Comments: Sexual Activity: Not Currently; Male; [...] external genitalia normal, normal Bartholin's glands, urethra, [place]'s glands, no vulvar lesions, good vaginal support, physiologic discharge present, normal appearing perineal body and perianal region BIMANUAL: no adnexal masses, non-tender, and uterus surgically absent RECTOVAGINAL: deferred. NEURO: alert and oriented x3,exam grossly non-focal EXTREMITIES: normal ASSESSMENT/PLAN: 1) Health maintenance: Pap/HPV screening no longer needed Mammogram up to date - managed by [facility] Calcium/Vitamin D supplementation information provided. Colonoscopy due next year. 2) Patient grieving loss of - Medication managed by PCP - Has counseling in place 3) Follow up one year or sooner as needed JIMMY Sherman APRN.CNP documented in this encounterJoint [facility]09-20-2023 Miscellaneous Notes* Telephone Encounter - Sabina Diaz LPN - 01/15/2023 4:23 PM EDT Patient has yearly exam 02/20/2023. Requesting refill of Acyclovir documented in this encounterJoint [facility]08-11-2023 History of Present illness Narrative* Reny Markham [...] abnormal breast imaging. -05/23/2022: LEFT diagnostic mammogram/ultrasound ([facility]) demonstrated retroareolar ductal dilation -06/07/2022: LEFT breast ultrasound here at [facility] demonstrated mildly dilated ducts. The radiologistnotes this [...] section of this note. She did have Other Machine Cancer[employer] panel panel genetic testing 05/2022 which [...] She is requesting a referral to a job order clerk here at [facility]. Risk Factors: Menarche: 11 Age of first : 21; Menopause: Post Physical Activity: She was previously limited due to an ankle injury but plans to begin walking. Wediscussed the [place] [employer] recommends that adults get at [...] using voice recognition software. documented in this [facility]08-11-2023 Instructions* Patient Instructions* PATRIZIA Gavin [...] associated with physical activity is 12% -The [place] [employer] recommends that adults get at [...] blood sugar and cholesterol. documented in this [facility]02-08-2023 History of Present illness Narrative* Marielos Avalos MD - 06/05/2022 1:30 PM EST [...] and family history have been reviewed. Using Qiro software, the family genogram has been generated [...] Bmi 27 postmenopausal Imaging: Screening mammogram 11/15/21 [facility], report copied below, LEFT diagnostic mammogram and ultrasound 05/23/[address] [facility], reports in media PT TO BRING [facility] TO APPOINTMENT Provider, [facility] [place] - 11/15/2021 * * *Final Report* * * DATE OF EXAM: Nov 15 2021 8:20AM W [id number] - [facility] SCREENING W CARLIN / PROCEDURE REASON: Encounter for screening mammogram for breast cancer * * * * Physician Interpretation * * * * RESULT: #[id number] - [facility] SCREENING W CARLIN BILATERAL DIGITAL SCREENING MAMMOGRAM [...] dated: 11/13/2020 mammogram and 10/08/2019 mammogram - [facility]. The tissue of both breasts is [...] screening mammogram is recommended. Jose garland/tayla:11/15/2021 10:21:18 Hvac R Tech(s): Nikki Strange, [facility] letter sent: Normal over 40 Mammogram BI-RADS: 2 Benign finding ULTRASOUND 05/13/22 done for LEFT breast pain US left retroareolar region: dilated ducts with possible echogenic foci- ductogram recommended [facility]- category 0 LEFT Dx mammogram: scattered areas [...] as directed Evening primrose oil as directed Marielos Van Fossen MD 06/05/2022 Please disregard any typographical errors. This note was dictated using voice recognition software. documented in this [facility]02-08-2023 Instructions* Patient Instructions* Bebe Arias - 06/05/2022 1:30 PM EST Breast imaging disc from [facility] taken to [facility] to be loaded into [facility] Reymundo is scheduled for left breast ultrasound 06/07/22 documented in this [facility]02-07-2023 Miscellaneous Notes* Telephone Encounter - Jade Ferguson APRN.CNP - 06/04/2022 11:05 AM EST Noted. Thank [...] 10:23 AM EST Received call from Socorro [facility]chiga [facility], stated that they received the report for her mammogram, ultrasound and uploaded images from [facility]. It will take a couple days [...] pt and explained results and testing needed. [facility] returned call and they are uploading the images into our system so the radiologist can view these. Message sent to Nurse Martin at the breast [facility] that those images will be available to their office. Will await further directives. Yessenia Murcia LPN * Telephone Encounter - Yessenia Murcia LPN - 05/24/2022 4:08 PM EST Spoke with Socorro Arechiga at [facility]. [phone]. Report from mammogram and breast ultrasound faxed to that office at [phone]. The Radiologist needs to review her report as well as needing a disc of her actual films. The radiologist will then decide how to proceed from that point and contact the pt. [facility] mammography dept contacted to obtain disc [...] PM EST Patient had mammogram done at [facility]. Asking about her results. States [facility] was to fax the results to our office yesterday. Needs additional imaging. Result printed from [employer]. In provider's mailbox to review. Ciera Quispe RN documented in this encounter[facility] History of Present illness Narrative* Lacy Negron MD - 05/28/2022 5:50 PM EST I am asked to review outside imaging on this patient prior to [facility]. She presented 05/23/2022 for evaluation of pain [...] considered at that time. documented in this encounterJoint [facility]-19-2023 Instructions* Patient Instructions* Jade Ferguson APRN.RENALDO - 05/16/2022 3:34 PM EST Management of Benign Breast Pain / Fibrocystic Changes Decrease or avoid intake of caffeine, including coffee, teas, sodas, and chocolate. Decrease or avoid nicotine. Wear a support or sports (not underwire) bra. Take erpu-ihs-uyzoegq ibuprofen (Advil/Motrin) or other NSAIDs, such as naproxen (Aleve). Take 3 grams (3000 mg.) of evening primrose oil (available lfci-lfn-urdcrtm) in divided doses for 2months. Take warm showers. Use warm compresses. documented in this encounterJoint [facility]01-19-[facility]23 History of Present illness Narrative* Jade Ferguson APRN.CNP - 05/16/2022 3:16 PM EST BREAST LUMP HISTORY: This is a 57 year old female Presents with mastalgia left Tenderness Yes, left lower breast and nipple area x 4 months Any history breast mass No Caffeine use Yes 5 cups/day Last [id number] normal Any previous breast surgery No Any [...] Level: 3 - Low documented in this encounterJoint [facility]10-06-2022 Miscellaneous Notes* Telephone Encounter - Ciera Quispe RN - 01/31/2022 4:15 PM EDT Patient changed insurance. Needs prescription sent to [facility] Mail order. RX pending. Requested Prescriptions Pending Prescriptions Disp Refills acyclovir (ZOVIRAX) 400 mg tablet 180 tablet 2 Sig: Take 1 tablet by mouth twice daily. documented in this encounterJoint Township District [facility] Hospital07-21-2022 Miscellaneous Notes* Letter - Mammography Coordinator - 11/15/2021 10:21 AM EDT November 15, 2021 PID: [id number] Reymundo Blankenship [address] [place] [address] Dear Ms. Blankenship, We are pleased to [...] report will be kept on file at [facility] as part of your permanent medical record and are available for your continuing care. Thank you for allowing us to help in meeting your health care needs. Sincerely, Dr. Tatum Interpreting Radiologist [facility] (Normal over 40) documented in this encounterJoint Township District [facility] Hospital07-21-2022 History of Present illness Narrative* RT Audra(R) [...] 15, 2021 7:58 AM documented in this encounterJoint [facility] Hospital07-21-2022 History of Present illness Narrative* Jade Ferguson [...] Ectopic0 Multiple1 Live Births0 Comment: Twin Boys. 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 History LMP: 08/19/2010, Hysterectomy Age at Menarche: Age at First : Age at Menopause: 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 History Comments: Sexual Activity: Not Currently; Male; [...] ONLY TWIN DELIVERY COLONOSCOP W/ OR W/O [facility] SPEC 09/01/2013 Colonoscopy COLONOSCOP W/ OR W/O [facility] SPEC 11/09/2018 Colonoscopy EXTENSIVE FINGER SURGERY [...] external genitalia normal, normal Bartholin's glands, urethra, [place]'s glands, no vulvar lesions, good vaginal support, [...] year or sooner as needed Jade Ferguson APRN.MECHANICAL MAINTENANCE WORKER documented in this encounterJoint Township District [facility] Hospital07-01-2022 [facility] NAME ACCOUNT SEX AGE ADMIT DISCHARGE PT MED. RECORD# NUMBER DATE DATE TYPE REYMUNDO BLANKENSHIP [id number] F 56 10/25/21 10/25/21 2 L [id number] ROOM: DATE OF : 63 DICTATING PHYSICIAN: [...] the morning of October 26, 2021, at [facility]. Dictated By: Manju Russell DPM 10/25/21 17:11 JOB #: [id number] Transcribed By: isadora 10/25/21 18:05 Electronically signed by: E-SIGN MANJU RUSSELL Page 1 of 2 REYMUNDO BLANKENSHIP KELLY L :1965 10/26/21 10:04 Update to H&P: [ ] No changes: I have examined the patient and reviewed the H&P and there are no changes. [ ] As previously dictated with the following changes: ____ ____ ____ PHYSICIAN SIGNATURE: TIME: DATE: Page 2 of 2 BLANKENSHIPREYMUNDO [facility] noteNo assessment information availableWSelect [facility] Work Phone: Evaluation note* Diagnosis Encounter for gynecological examination (general) (routine) without abnormal findings- Primary Encounter for screening mammogram for malignant neoplasm of breast Other screening mammogram documented in this encounter [facility] note* Diagnosis Encounter for screening mammogram for breast cancer documented in this encounter [facility] note* Diagnosis Breast pain in female- Primary Mastodynia documented in this encounter [facility] note* Diagnosis Abnormal finding on radiological examination of breast- Primary Other (abnormal) findings on radiological examination of breast documented in this encounter [facility] note* Diagnosis Dense breasts Inconclusive mammogram Family history of breast cancer Family history of malignant neoplasm of breast documented in this encounter [facility] note* Diagnosis Family history of breast cancer- Primary Family history of malignant neoplasm of breast Encounter for screening mammogram for breast cancer Breast pain Mastodynia Family history of pancreatic cancer Family history of malignant neoplasm of gastrointestinal tract Rheumatoid arthritis, involving unspecified site, unspecified whether rheumatoid factor present (HCC) documented in this encounter [facility] note* Diagnosis Mammary duct ectasia of left breast documented in this encounter [facility]* Diagnosis Encounter for gynecological examination (general) (routine) without abnormal findings- Primary documented in this encounter [facility] note* Diagnosis History of colonic polyps- Primary Personal history of colonic polyps Encounter for screening for malignant neoplasm of colon Special screening for malignant neoplasms, colon documented in this encounter [facility] note* Diagnosis Family history of breast [...] other specified reasons documented in this encounter [facility] note* Diagnosis Encounter for screening mammogram for breast cancer [facility] Diagnosis Encounter for gynecological examination (general) (routine) without abnormal findings- Primary Encounter for screening mammogram for breast cancer documented in this encounter [facility]* Diagnosis Mammary duct ectasia of left breast- Primary Family history of pancreatic cancer Family history of malignant neoplasm of gastrointestinal tract Family history of melanoma Family history of other specified malignant neoplasm Dense breasts Inconclusive mammogram Mastodynia of left breast 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documented in this encounter [facility]* Diagnosis Onset Date Resolution Status Admit Date Epilepsy acute November 04 8:49am [facility] Work Phone: Evaluation note* Diagnosis Encounter for screening mammogram for breast cancer- Primary Family history of breast cancer Family history of malignant neoplasm of breast Family history of pancreatic cancer Family history of malignant neoplasm of gastrointestinal tract Family history of melanoma Family history of other specified malignant neoplasm Family history of colon cancer Family history of malignant neoplasm of gastrointestinal tract Family history of prostate cancer Family history of malignant neoplasm of prostate Encounter for examination and observation for other specified reasons documented in this encounter [facility] note* Diagnosis Encounter for screening mammogram for breast cancer documented in this encounter [facility] for referral (narrative)* Diagnostic Procedure Only (Routine) - Pending Review Specialty Diagnoses / Procedures Referred By Shady taylor Referred To Contact [facility] Diagnoses Encounter for screening mammogram for malignant neoplasm of breast Procedures CONSTANCE SCREENING W CARLIN SCREENING DIGITAL BREAST TOMOSYNTHESIS BI SCREENING MAMMOGRAPHY BI 2-VIEW BREAST INC CAD Jade Ferguson APRN.CNP [address] [place] [address] [facility] [address] [place] [id number] Referral ID Status Reason Start Date Expiration Date Visits Requested Visits Authorized [id number] Pending Review Auto-Generat ed Referral 11/15/2021 12/15/2022 1 1 [facility] ([facility])* Diagnostic Procedure Only (Routine) - Pending Review Specialty Diagnoses / Procedures Referred By Shday taylor Referred To Contact [facility] Diagnoses Breast pain in female Procedures US BREAST LTD LT US BREAST UNI REAL TIME WITH IMAGE LIMITED Jade Ferguson APRN.MECHANICAL MAINTENANCE WORKER [address] [place] [address] [facility] [address] [place] [address] Referral ID Status Reason Start Date Expiration Date Visits Requested Visits Authorized [id number] Pending Review Auto-Generat ed Referral 05/16/2022 06/15/2023 1 1 * Diagnostic Procedure Only (Routine) - Pending Review Specialty Diagnoses / Procedures [facility] Referred To Contact [facility] Diagnoses Breast pain in female Procedures CONSTANCE DIAGNOSTIC LT DIAGNOSTIC MAMMOGRAPHY COMPUTER-AIDED DETCJ UNI Jade Ferguson APRN.MECHANICAL MAINTENANCE WORKER [address] [place] [address] [facility] [address] [place] [address] Referral ID Status Reason Start Date Expiration Date Visits Requested Visits Authorized [id number] Pending Review Auto-Generat ed Referral 05/16/2022 06/15/2023 1 1 [facility] for referral (narrative)* Diagnostic Procedure Only (Routine) - Pending Review Specialty Diagnoses / Procedures [facility] Referred To Contact [facility] Diagnoses Abnormal finding on radiological examination of breast Procedures US BREAST LTD LT US BREAST UNI REAL TIME WITH IMAGE LIMITED Lacy Negron MD [address] [place] [address] [facility] [address] [place] [address] Referral ID Status Reason Start Date Expiration Date Visits Requested Visits Authorized [id number] Pending Review Auto-Generat ed Referral 05/28/2022 06/27/2023 1 1 * Diagnostic Procedure Only (Routine) - Pending Review Specialty Diagnoses / Procedures [facility] Referred To Contact [facility] Diagnoses Abnormal finding on radiological examination of breast Procedures CONSTANCE DIAGNOSTIC LT DIAGNOSTIC MAMMOGRAPHY COMPUTER-AIDED DETCJ UNI Jamil, Lacy Glover MD [address] [place] [address] [facility] [address] [place] [address] Referral ID Status Reason Start Date Expiration Date Visits Requested Visits Authorized [id number] Pending Review Auto-Generat ed Referral 05/28/2022 06/27/2023 1 1 [facility] for referral (narrative)* Consultation (Routine) - Pending Review Specialty Diagnoses / Procedures Referred By Shady t Referred To Contact Rheumatology Diagnoses Rheumatoid arthritis, involving unspecified site, unspecified whether rheumatoid factor present (HCC) Procedures CO OFFICE/OUTPATIENT NEW HIGH MDM 60-74 MINUTES Reny Markham APRN - MECHANICAL MAINTENANCE WORKER [address] [place] [address] [facility] [address] [place] [address] Referral ID Status Reason Start Date Expiration Date Visits Requested Visits Authorized [id number] Pending Review Specialty Services Required 12/06/2022 12/06/2023 1 1 [facility] for referral (narrative)* Outpatient Procedure (Routine) - New Request Specialty Diagnoses / Procedures Referred By Shady taylor Referred To Contact [facility] Diagnoses History of colonic polyps Encounter for screening for malignant neoplasm of colon Procedures COLONOSCOPY SCREENING COLONOSCOPY FLX DX W/COLLJ SPEC WHEN Vernell Baca APRN.MECHANICAL MAINTENANCE WORKER [address] [place] [address] [facility] [address] [place] [address] Referral ID Status Reason Start Date Expiration Date Visits Requested Visits Authorized [id number] New Request Auto-Generat ed Referral 11/24/2023 11/23/2024 1 1 [facility] for referral (narrative)* Diagnostic Procedure Only (Routine) - Authorized Specialty Diagnoses / Procedures Referred By Shady t Referred To Contact [facility] Diagnoses Encounter for screening mammogram for breast cancer Procedures CONSTANCE SCREENING W CARLIN SCREENING DIGITAL BREAST TOMOSYNTHESIS BI SCREENING MAMMOGRAPHY BI 2-VIEW BREAST INC Jade Ken APRN.CNP [address] [place] [address] [facility] [address] [place] [address] Referral ID Status Reason Start Date Expiration Date Visits Requested Visits Authorized [id number] Authorized Auto-Generat ed Referral 12/08/2024 04/04/2025 1 1 [facility] for referral (narrative)No reason for referral information availableWSelect [facility] Work Phone: Family History No Family History Records Found Relationship Condition Age at Onset Recorded Date/T [...] Malignant neoplasm of colon 47 Advance Directives No Advanced Directives Records Found Advance Directive Response Recorded Date/ Time Advance Directives No February 02, 2015 9:54am Living Will Yes March 14 5:34am Power of [employer] Professional Yes March 14, 2020 5:34am Documents on File Type Date Recorded 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 Yes March 14, 2020 5:34am Advance Directives No February 02, 2015 9:54am Summary Purpose Chief Complaint and Reason for Visit Chief Complaint PAIN IN ARM REFERRED SELF / THERESA Chief Complaint REFERRED SELF / GRAN T EORDER FROM NIKKI MARINNGER Chief Complaint EORDER FROM NIKKI EDY Chief Complaint Admit Date FAMILY HX OF [...] of muliple fractures November 11, 2024 3:13pm Chief Complaint Admit Date EPILEPSY November 04, 2024 8:49 am history of muliple fractures November 11, 2024 3:13pm G40.909 - Epilepsy, unspecified, not int ractable, December 17, 2024 8:07am Chief Complaint Admit Date EPILEPSY November 04, 2024 8:49 am history of muliple fractures November 11, 2024 3:13pm G40.909 - Epilepsy, unspecified, not int ractable, December 17, 2024 8:07am TEST RESULTS December 28, 2024 8:20am Reason for Visit Admit Date Epilepsy November 04, 2024 8:49 am Epilepsy December 28, 2024 8:20am Reason for Referral Specialty Diagnoses / Procedures Referred By Shady taylor Referred To Contact Radiology Diagnoses Dense breasts Family history of breast cancer Procedures BI MR fast breast bilateral w/wo contrast Reny Markham, JEWELRY STORE MANAGER - MECHANICAL MAINTENANCE WORKER [address] [place] [address] Referral ID Status Reason Start Date Expiration Date Visits Re quested Visits Authorized [id number] Closed 06/07/2022 12/04/2022 1 1 Additional Source [...] and content) DATE CREATED AUTHOR 11/01/2021 [facility] DATE CREATED AUTHOR AUTHOR'S ORGANIZ ATION 11/01/2021 [facility] DATE CREATED AUTHOR AUTHOR'S ORGANIZ ATION 12/12/2024 [facility] DATE CREATED AUTHOR AUTHOR'S ORGANIZ ATION 12/28/[address] [facility] DATE CREATED AUTHOR AUTHOR'S ORGANIZ ATION 03/09/2025 [facility] Source Comments (unrecognize d section and content) In the event this informatio n is protected by the Federal Confidentiality of Alcohol and Drug Abuse Patient Records regulations: The Federal rules restrict any use of the information to criminally investigate or prosecute any alcohol or drug abuse patient.[facility] HospitalIn the event this information is protected by the Federal Confidentiality of Alcohol and Drug Abuse Patient Records regulations: The Federal rules restrict any use of the information to criminally investigate or prosecute any alcohol or drug abuse patient.[facility] HospitalIn the event this information is protected by the Federal Confidentiality of Alcohol and Drug Abuse Patient Records regulations: The Federal rules restrict any use of the information to criminally investigate or prosecute any alcohol or drug abuse patient.[facility] HospitalIn the event this information is protected by the Federal Confidentiality of Alcohol and Drug Abuse Patient Records regulations: The Federal rules restrict any use of the information to criminally investigate or prosecute any alcohol or drug abuse patient.[facility] HospitalIn the event this information is protected by the Federal Confidentiality of Alcohol and Drug Abuse Patient Records regulations: The Federal rules restrict any use of the information to criminally investigate or prosecute any alcohol or drug abuse patient.[facility] HospitalIn the event this information is protected by the Federal Confidentiality of Alcohol and Drug Abuse Patient Records regulations: The Federal rules restrict any use of the information to criminally investigate or prosecute any alcohol or drug abuse patient.[facility] HospitalIn the event this information is protected by the Federal Confidentiality of Alcohol and Drug Abuse Patient Records regulations: The Federal rules restrict any use of the information to criminally investigate or prosecute any alcohol or drug abuse patient.[facility] HospitalIn the event this information is protected by the Federal Confidentiality of Alcohol and Drug Abuse Patient Records regulations: The Federal rules restrict any use of the information to criminally investigate or prosecute any alcohol or drug abuse patient.[facility] HospitalIn the event this information is protected by the Federal Confidentiality of Alcohol and Drug Abuse Patient Records regulations: The Federal rules restrict any use of the information to criminally investigate or prosecute any alcohol or drug abuse patient.[facility] HospitalIn the event this information is protected by the Federal Confidentiality of Alcohol and Drug Abuse Patient Records regulations: The Federal rules restrict any use of the information to criminally investigate or prosecute any alcohol or drug abuse patient.[facility] HospitalIn the event this information is protected by the Federal Confidentiality of Alcohol and Drug Abuse Patient Records regulations: The Federal rules restrict any use of the information to criminally investigate or prosecute any alcohol or drug abuse patient.[facility] HospitalIn the event this information is protected by the Federal Confidentiality of Alcohol and Drug Abuse Patient Records regulations: The Federal rules restrict any use of the information to criminally investigate or prosecute any alcohol or drug abuse patient.[facility] Reason for Visit (unrecogniz ed section and content) Reason Comments 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 Exam Reason Onset Date Comments Refill Request 01/31/2022 Reason Comments Breast Problem Reason Comments Mammogram Abnormality Reason Comments Mammogram Abnormality Specialty Diagnoses / Procedures Referred By Contac t Referred To Contact Radiology Diagnoses Dense breasts Family history of breast cancer Procedures BI MR fast breast bilateral w/wo contrast Reny Markham, JEWELRY STORE MANAGER - MECHANICAL MAINTENANCE WORKER [address] [place] [address] Referral ID Status Reason Start Date Expiration Date Visits Re quested Visits Authorized [id number] Closed 06/07/2022 12/04/2022 1 1 Reason Comments [...] breast pain for the last 4 months Reason Comments 1 Year Follow-up Patient states both bilateral breast get itchy, but they are not dry. She also states she get pain that comes and goes, but more so in the left breast Care Teams (unrecognized sec tion and content) Crane Rigger Relationship Specialty Start Date End Date Héctor Yepez MD [address] [facility] [place] [address] PCP - General 02/20/04 Crane Rigger Relationship Specialty Start Date End Date Héctor Yepez MD [address] [place] [address] PCP - General 02/20/04 Crane Rigger Relationship Specialty Start Date End Date Héctor Yepez MD [address] [place] [address] PCP - General 02/20/04 Crane Rigger Relationship Specialty Start Date End Date Héctor Yepez MD [address] [place] [address] PCP - General 02/20/04 Crane Rigger Relationship Specialty Start Date End Date Héctor Yepez MD [address] [place] [address] PCP - General 02/20/04 Crane Rigger Relationship Specialty Start Date End Date Héctor Yepez MD [address] [place] [address] PCP - General 02/20/04 Team Status: Active Member Role Status Dates Dr. Héctor Yepez MD Family Provider Active Carmen Snow DO Primary Care Provider Active Team Status: Active Member Role Status Dates Carmen Snow , Primary Care Provider Active Dr. Andrei Lerma MD Attending Provider Active Jade Marty LEVEL VIAL INSPECTOR AND TESTER, LEVEL VIAL INSPECTOR AND TESTER-C Referring Provider Active Team Status: Inactive Member Role Status Dates Dr. Hcétor Harp MD Primary Care Provider Active Carmen Snow DO Attending Provider Active Team Status: Inactive Member Role Status Dates Carmen Snow DO Primary Care Provider Active Jade Marty LEVEL VIAL INSPECTOR AND TESTER, LEVEL VIAL INSPECTOR AND TESTER-C Attending Provider Active Team Status: Active Member [...] Vazquez MD Attending Provider, Referring Provider Active Crane Rigger Relationship Specialty Start Date End Date Shaunna Snow MD [address] [place] [address] PCP - General Pediatrics 06/05/22 Crane Rigger Relationship Specialty Start Date End Date Shaunna Snow MD [address] [place] [address] PCP - General Pediatrics 06/05/22 Crane Rigger Relationship Specialty Start Date End Date Shaunna Snow MD [address] [place] [address] PCP - General Pediatrics 06/05/22 Crane Rigger Relationship Specialty Start Date End Date Héctor Yepez MD [address] [place], [place] [id number] PCP - General 02/20/04 Crane Rigger Relationship Specialty Start Date End Date Héctor Yepez MD [address] [place] [address] PCP - General 02/20/04 Team Status: Inactive Member Role Status Dates Carmen Snow DO Primary Care Provider Active Dr. Bebe William MD Attending Provider, Sandra caraballo Active Crane Rigger Relationship Specialty Start Date End Date Héctor Yepez MD [address] [place] [address] PCP - General 02/20/04 Crane Rigger Relationship Specialty Start Date End Date Héctor Yepez MD [address] [place] [address] PCP - General 02/20/04 Crane Rigger Relationship Specialty Start Date End Date Shaunna Snow MD [address] [place] [address] PCP - General Pediatrics 06/05/22 Crane Rigger Relationship Specialty Start Date End Date Shaunna Snow MD [address] [place] [address] PCP - General Pediatrics 06/05/22 Crane Rigger Relationship Specialty Start Date End Date Héctor Yepez MD [address] [place] [address] PCP - General 02/20/04 Crane Rigger Relationship Specialty Start Date End Date Shaunna Snow MD [address] [place] [address] PCP - General Pediatrics 06/05/22 Team Status: Active Member Role Status Dates Nathanael Frazier , MD Primary Care Provider Active Team Status: [...] Nathanael Frazier MD Other Provider Active Start: [facility] 2024 Dr. Arron Soto MD [...] Nathanael Frazier MD Other Provider Active Start: [facility] [address]24 Dr. Arron Soto MD Attending Provider Active S tart: July 20, 2024 Team Status: Inactive Member Role/Relationship Status Mulu Frazier MD Primary Care Provider Active St art: October 01, 2024 End: October 01, 2024 Dr. Mary Ann Vazquez MD Attending Provider Active Start: October 01, 2024 End: October 01, 2024 Team Status: Inactive Member Role/Relationship Status Mulu Vazquez MD Referring Provider Active Start: November 04, 2024 End: November 04, 2024 Dr. Ranjith Lee MD Attending Provider Active Start: November 04, 2024 End: November 04, 2024 Nathanael Frazier MD Primary Care Provider Active St art: November 04, 2024 End: November 04, 2024 Team Status: Inactive Member Role/Relationship Status Dates Nathanael Frazier MD [...] Referring Provider Active Start: November 11, 2024 Team Status: Inactive Member Role/Relationship Status Dates Nathanael Frazier MD Primary Care Provider Active St art: November 11, 2024 End: November 11, 2024 Dr. Ranjith Lee MD Attending Provider Active Start: November 11, 2024 End: November 11, 2024 Dr. Ranjith Lee MD Referring Provider Active Start: November 11, 2024 End: November 11, 2024 Crane Rigger Relationship Specialty Start Date End Date Shaunna Snow MD [address] [place] [address] PCP - General Pediatrics 06/05/22 Crane Rigger Relationship Specialty Start Date End Date Shaunna Snow MD [address] [place] [address] PCP - General Pediatrics 06/05/22 Team Status: Inactive Member Role/Relationship Status Dates Nathanael Frazier MD Primary Care Provider Active St art: October 01, 2024 End: October 01, 2024 Dr. Mary Ann Vazquez MD Attending Provider Active Start: October 01, 2024 End: October 01, 2024 Team Status: Inactive Member Role/Relationship Status Dates Dr. Ranjith Lee MD Attending Provider Active Start: November 04, 2024 End: November 04, 2024 Nathanael Frazier MD Primary Care Provider Active St art: November 04, 2024 End: November 04, 2024 Nathanael Frazier MD Referring Provider Active Start : November 04, 2024 End: November 04, 2024 Team Status: Inactive Member Role/Relationship Status Dates Nathanael Frazier MD Primary Care Provider Active St art: November 06, 2024 End: November 06, 2024 Dr. Ranjith Lee MD Attending Provider Active Start: November 06, 2024 End: November 06, 2024 Dr. Ranjith Lee MD Referring Provider Active Start: November 06, 2024 End: November 06, 2024 Team Status: Inactive Member Role/Relationship Status Dates Nathanael Frazier MD Primary Care Provider Active St art: November 11, 2024 End: November 11, 2024 Dr. Ranjith Lee MD Attending Provider Active Start: November 11, 2024 End: November 11, 2024 Dr. Ranjith Lee MD Referring Provider Active Start: November 11, 2024 End: November 11, 2024 Team Status: Inactive Member Role/Relationship Status Dates Nathanael Frazier MD Primary Care Provider Active St art: December 17, 2024 End: December 17, 2024 Dr. Ranjith Lee MD Attending Provider Active Start: December 17, 2024 End: December 17, 2024 Dr. Ranjith Lee MD Referring Provider Active Start: December 17, 2024 End: December 17, 2024 Team Status: Inactive Member Role/Relationship Status Dates Nathanael Frazier MD Primary Care Provider Active St art: December 28, 2024 End: December 28, 2024 Nathanael Frazier MD Referring Provider Active Start : December 28, 2024 End: December 28, 2024 Dr. Ranjith Lee MD Attending Provider Active Start: December 28, 2024 End: December 28, 2024 Crane Rigger Relationship Specialty Start Date End Date Shaunna Snow MD [address] [place] [address] PCP - General Pediatrics 06/05/22 FOR RECORDS PERTAINING TO PATIENTS WHO ARE [...] BE BASED ON THE PRIMARY CLINICAL RECORDS. [facility]. provides no warranty or guarantee of the accuracy or completeness of information in this document.
[2025-03-25 09:21] LABS: Hematocrit 40.5 % (37-47); Hemoglobin 14.2 g/dL (12.0-15.0); Immature Granulocytes Count 0.020 X10^3/uL (0.0-0.0); Mean Corp Hgb Conc 35.1 g/dL (32-36); Mean Corpuscular Volume 93.8 fL (81-99); Mean Platelet Vol. 9.4 fl (6.2-12.0); NRBC Flagged by Analyzer 0 % (0-5); Platelet Count 313 K/mm3 (150-450); RBC Distribution Width CV 12.1 % (11.6-14.6); RBC Distribution Width SD 42.0 fl (35.1-43.9); Red Blood Count 4.32 M/mm3 (4.2-5.4); White Blood Count 5.5 K/mm3 (4.4-11.0)
[2025-03-25 09:50] LABS: AST(SGOT) 31 U/L (<=31); Alanine Aminotransfer ALT/SGPT 25 U/L (<=34); Albumin, Serum 4.3 g/dL (3.4-4.8); Alkaline Phosphatase 87 U/L (35-104); Anion Gap 11 (5-15); BUN 5 mg/dL (4-19); BUN/Creat Ratio 9.6 RATIO (10-20); Calcium,Total 8.6 mg/dL (7.6-11.0); Carbon Dioxide 24.9 mmol/L (21.0-32.0); Chloride 98 mmol/L (98-108); Globulin 2.3 g/dL (2.2-4.2); Glucose 103 mg/dL (70-99); Potassium 4.6 mmol/L (3.3-5.1)
== END | disposition home or self-care (01) ==
LOC: LAB 08:57
PROVIDERS: PCP Family Medicine; Referring Provider Internal Medicine Rheumatology; Visit Provider Internal Medicine Rheumatology
DX: M06.4 Inflammatory polyarthropathy (principal); Z79.899 Other long term (current) drug therapy; M79.7 Fibromyalgia
CPT/HCPCS: 36415; 80053; 85025